=== PATIENT | male | born 1945 | race Caucasian/White ===

== ENCOUNTER 2016-08-09 09:22 | Day surgery (SDC) | payer MEDICARE ==
[2016-08-09] MEDS ORDERED: Xopenex 1.25 MG/0.5 ML UD NEBULE IH ONE ×2 (09:55→10:07)
[2016-08-09] MEDS ORDERED: Sodium Chloride 3 ML UD NEBULES IH PRN (09:57)
[2016-08-09] MEDS ORDERED: Lactated Ringers 1,000 ML IV SCH (10:00)
[2016-08-09] MEDS ORDERED: Sodium Chloride 3 ML UD NEBULES IH ONE (10:07)
[2016-08-09 14:14] VITALS: BP 132/82; PULSE 88; O2SAT 95
[2016-08-09] MEDS ORDERED: SUBLIMAZE 100 MCG/2 ML IV ONE ×2 (14:32→14:37)
[2016-08-09] MEDS ORDERED: DIPRIVAN 200 MG/20 ML IV ONE ×2 (14:32→14:37)
[2016-08-09] MEDS ORDERED: Versed 2 MG/2 ML Injection IV ONE ×2 (14:32→14:37)
--- NOTE | 2016-08-10 12:42 | OP ---
PROCEDURE DATE/TIME: 08/09/2016 1222 PREOPERATIVE DIAGNOSIS: Screening colonoscopy. The patient has history of polyps. POSTOPERATIVE DIAGNOSIS: Mild diverticulosis. Mild internal hemorrhoidal disease. One colonic polyp at the level of the splenic flexure that appears benign. The final pathology report is pending. PROCEDURE: Colonoscopy. PROCEDURE PERFORMED BY: Eileen Jaime M.D. COMPLICATIONS: None. ESTIMATED BLOOD LOSS: Minimal. ANESTHESIA: MAC. SPECIMEN: Splenic flexure polyp. HISTORY: This is a 60 year-old gentleman who presents for screening colonoscopy. He does have a history of polyps in the past. All risks, benefits, alternatives of colonoscopy were discussed with the patient in detail and he agreed to proceed. DESCRIPTION OF PROCEDURE: The patient was seen preoperatively and he was then brought back to the endoscopy suite. He was laid in the left lateral decubitus position. MAC anesthesia was administered. A complete time out was performed. First a rectal exam was done which noted some hemorrhoidal tissue. We then carefully entered the scope and advanced this towards the cecum. The patient does have mildly prominent internal hemorrhoids. He also has mild diverticulosis throughout the sigmoid and descending colon. The transverse colon appeared normal. The ascending colon appeared normal and the ileocecal valve as well as the appendiceal orifice were visualized and these appeared normal. The scope was then carefully withdrawn. There was some liquid stool that we had to suction and irrigate. The mucosa looked very healthy. As the scope was withdrawn at the level of the splenic flexure there was a very small benign appearing polyp which was taken in its entirety with hot forceps polypectomy. The site looked good. It was hemostatic. The polyp was removed in its entirety. It was sent to pathology. We then carefully continued to withdrawal the scope finding no other significant abnormalities except those already noted. The patient tolerated the procedure very well. There were no immediate complications. I discussed the results with the family in the postoperative area and we will plan to do another colonoscopy in approximately three years because of his history of polyps. He will also see me in the office to discuss the results.
== END 2016-08-09 14:05 | disposition home or self-care (01) ==
LOC: SDC 09:22
PROVIDERS: ATTEND Surgery
PROC: 0DBL8ZX Excision of Transverse Colon, Via Natural or Artificial Opening Endoscopic, Diagnostic (ICD-10-PCS; principal; 2016-08-09)
DX: K57.90 Diverticulosis of intestine, part unspecified, without perforation or abscess without bleeding (principal); K63.5 Polyp of colon; Z86.010 Personal history of colon polyps; K64.8 Other hemorrhoids; Z12.11 Encounter for screening for malignant neoplasm of colon
CPT/HCPCS: 00810; 36415; 82962; 88305; 93005; 94640; J2250; J2704; J3010

== ENCOUNTER 2016-09-06 10:47 | Day surgery (SDC) | payer MEDICARE ==
[~2016-09-06 10:47] MED LIST: DIPRIVAN 200 MG/20 ML IV ONE; Lactated Ringers 1,000 ML IV ONE; SUBLIMAZE 100 MCG/2 ML IV ONE; Sensorcaine 0.25% 10 ML ONE; Versed 2 MG/2 ML Injection IV ONE
[2016-09-06] MEDS ORDERED: Lactated Ringers 1,000 ML IV ONE (10:55)
[2016-09-06] MEDS ORDERED: Lactated Ringers 1,000 ML IV SCH (11:00)
[2016-09-06] MEDS ORDERED: Xopenex 1.25 MG/0.5 ML UD NEBULE IH ONE (11:31)
[2016-09-06] MEDS ORDERED: Sodium Chloride 3 ML UD NEBULES IH ONE (11:33)
[2016-09-06] MEDS ORDERED: Sodium Chloride 3 ML UD NEBULES IH PRN (11:39)
[2016-09-06] MEDS ORDERED: XYLOCAINE 1% HCL 20 ML MDV ONE (12:52)
[2016-09-06] MEDS ORDERED: KEFZOL 1 GM ONE (13:00)
[2016-09-06 15:10] VITALS: O2SAT 97
[2016-09-06 15:11] VITALS: BP 132/78; PULSE 82
--- NOTE | 2016-09-11 08:41 | OP ---
PROCEDURE DATE/TIME: 09/06/2016 1249 PREOPERATIVE DIAGNOSIS: Multiple back masses. POSTOPERATIVE DIAGNOSIS: Multiple back masses. PROCEDURES: 1) Excision of lower back mass 4 x 2 cm. 2) Incisional biopsy upper back mass 1 x 1 cm. PROCEDURE PERFORMED BY: Eileen Jaime M.D. COMPLICATIONS: None. ESTIMATED BLOOD LOSS: Less than 10 cc. ANESTHESIA: MAC. SPECIMEN: Lower back mass and biopsy of upper back mass. HISTORY: This is a 70 year-old gentleman who noticed a lower back mass that has been changing. Its borders are irregular. All risks, benefits, alternatives of excision were discussed with the patient in the office and then he was set up for the procedure. DESCRIPTION OF PROCEDURE: We then saw the patient again preoperatively. I marked the lower back mass with the patient awake and alert. We confirmed this. The patient has been noticing an upper lesion that has changed as well. This site is actually quite a broad site. It is slightly red. It does not appear obviously malignant but it does appear abnormal and it may have changed recently. The patient is not sure but this does look like it needs biopsied to me. To completely excise the upper lesion we would have to make quite a large wound to get any margins here and so before doing this I discussed with the patient that since I am already going to be removing the lower back mass in entirety, we will plan to take at least a biopsy of the upper back mass and see what it is. Depending on what it is then we will determine our plans for resection. The patient understands. We marked the upper back mass together as well and then he was able to be brought back to the operative suite. The patient was laid in in a right lateral decubitus position after anesthesia was induced. He was then prepped and draped in the usual sterile fashion. A complete time out was performed. We verified our two sites. The lower back mass was completely encircled with a small margin of at least 0.5 cm around the entire lesion. The incision taken down through skin, subcutaneous tissue this was removed and sent to pathology. We did irrigate the wound thoroughly after resection. Hemostasis was achieved with Bovie cautery. We did also raise inferior and superior flap in order to close the wound and then the wound was closed with 2-0 Nylon vertical mattress sutures in an interrupted fashion. We then turned our attention to the upper lesion. This site we picked the most abnormal area to biopsy and a 1 x 1 cm biopsy was taken directly of the lesion with the knife and then hemostasis achieved with Bovie cautery. The wound here was thoroughly irrigated and then closed with interrupted 3-0 Nylon suture. Sterile dressings were placed at both wounds. The patient tolerated the procedures very well. There were no immediate complications. I discussed all the results as well as the instructions with the patient's family postoperatively as well as what we found. The patient will follow up with me in approximately two weeks for pathology results as well as suture removal.
== END 2016-09-06 15:20 | disposition home or self-care (01) ==
LOC: SDC 10:47
PROVIDERS: ATTEND Surgery
PROC: 0HB6XZX Excision of Back Skin, External Approach, Diagnostic (ICD-10-PCS; principal; 2016-09-06)
PROC: 0HB6XZX Excision of Back Skin, External Approach, Diagnostic (ICD-10-PCS; 2016-09-06)
DX: R22.2 Localized swelling, mass and lump, trunk (principal); E11.9 Type 2 diabetes mellitus without complications; Z79.4 Long term (current) use of insulin; J44.9 Chronic obstructive pulmonary disease, unspecified; I10 Essential (primary) hypertension; Z79.899 Other long term (current) drug therapy
CPT/HCPCS: 00300; 36415; 82962; 94640; J0690; J2250; J2704; J3010

== ENCOUNTER 2016-11-01 10:52 | Day surgery (SDC) | payer MEDICARE ==
[~2016-11-01 10:52] MED LIST changes: +BICITRA 30 ML CUP ONE; +BICITRA 30 ML CUP PO ONE; +Decadron 4 MG INJ IV ONE; +Lactated Ringers 1,000 ML IV SCH; +MINERAL OIL LIGHT 10 ML FOR SURGERY ONE; +Pepcid 20 MG VIAL IV ONE; +Quelicin Fliptop 200 MG/10 ML IV ONE; +TORAdol 30 mg Injection IV ONE; -Versed 2 MG/2 ML Injection IV ONE; +Zemuron 100 MG/10 ML IV ONE; +Zofran 4 MG/2 ML VIAL IV ONE
[2016-11-01] MEDS ORDERED: Xopenex 1.25 MG/0.5 ML UD NEBULE IH ONE ×2 (11:45→15:20)
[2016-11-01] MEDS: Sodium Chloride 3 ML UD NEBULES IH SCH ×2 (11:55→15:20)
[2016-11-01] MEDS ORDERED: KEFZOL 1 GM ONE (14:05)
[2016-11-01] MEDS ORDERED: BACIGUENT 30 GM ONE (14:31)
[2016-11-01 17:25] VITALS: O2SAT 91
[2016-11-01 17:26] VITALS: BP 145/80; PULSE 82
--- NOTE | 2016-11-02 07:50 | OP ---
PROCEDURE DATE/TIME: 11/02/2016 1342 PREOPERATIVE DIAGNOSIS: Basal cell carcinoma back. POSTOPERATIVE DIAGNOSIS: Basal cell carcinoma back. PROCEDURE: Wide excision basal cell carcinoma of the back. Approximate lesion size is 5.5 x 5 cm with split thickness skin graft harvesting of left back approximately 7.5 x 5.5 cm and application of skin graft to excision site. PROCEDURE PERFORMED BY: Eileen Jaime M.D. COMPLICATIONS: None. ESTIMATED BLOOD LOSS: Less than 10 cc. ANESTHESIA: General. SPECIMEN: Wide excision basal cell carcinoma of the back suture marked 12:00. HISTORY: This is a 71 year-old gentleman who had seen me due to skin lesion on his back. We initially removed a lower back lesion which was found to be basal cell carcinoma with good margins. At that time I also biopsied a larger back lesion which was concerning for skin cancer and this came back as basal cell carcinoma. The patient has been consented for wide excision of the basal cell carcinoma lesion on his back with possible skin grafting. All risks, benefits, alternatives and procedure details were discussed in detail with the patient. He agreed to proceed. DESCRIPTION OF PROCEDURE: The patient was seen in the preoperative area. The site of biopsy was identified. The lesion was again confirmed with the patient and his family. We circled this. He was then brought back to the surgical suite. Anesthesia was induced. He was then placed in the prone position with all bony prominences padded. He was prepped and draped in the usual sterile fashion. A complete time out was performed and we verified the correct lesion. I then measured the lesion. The lesion has very irregular borders. It is a very irregular lesion. So from each of the borders that I outlined, I took about a 1 cm margin so we were for sure get a good margin around it as the borders are so irregular. I then took a knife and sharply excised this lesion taking full thickness skin and I did this on a slant so that the skin graft would lie in nicely. We then used the Bovie cautery for hemostasis and to fully remove the lesion from the subcutaneous tissue deeper. The mass was immediately marked once it was removed. It was marked with a stitch at the 12:00 position so that margins can be checked. All margins grossly appeared very clear. This specimen was then sent to pathology. We then irrigated the wound thoroughly and then I measured it. This is approximately 5.5 x 5 cm and then I selected a left lower back site to take the skin graft from. This site was free from any obvious skin lesion. I marked out my graft site of approximately 7.5 x 5.5 cm in order to cover the entire lesion. We then used the skin grafter with the medium blade. I took a thin split thickness skin graft here. We used our oil and we were able to get an excellent specimen. We immediately covered the skin graft harvest site with gently moistened gauze and then our skin graft nicely fit over the lesion. I did trim a small amount off at the edges to shape this into a circular lesion to fit perfectly. I then used 3-0 chromic suture to sew the skin graft in place. Everything looked very hemostatic and this laid very nicely. We put multiple interrupted sutures to place the skin graft in around the entire circumference of the lesion. I then placed a few cloaking sutures with the same stitch at the base and then I made a few very tiny nicks in the skin graft to allow this to breathe or drain, if necessary, but it was laying very flat and I was very happy with it. We then placed bacitracin ointment at the lesion bed and we placed a nonadherent dressing and taped this into place. We also placed some bacitracin and Adaptic at the harvest site and then placed a dry dressing over top of this and taped this into place. The patient tolerated the procedure very well. There were no immediate complications. He is going to follow up with me in approximately 4 1/2 days on Sunday. I have discussed with his family all of his instructions and I have given a prescription for pain pills.
== END 2016-11-01 17:33 | disposition home or self-care (01) ==
LOC: SDC 10:52
PROVIDERS: ATTEND Surgery
PROC: 0HR6X73 Replacement of Back Skin with Autologous Tissue Substitute, Full Thickness, External Approach (ICD-10-PCS; principal; 2016-11-01)
PROC: 0HB6XZZ Excision of Back Skin, External Approach (ICD-10-PCS; 2016-11-01)
DX: C44.519 Basal cell carcinoma of skin of other part of trunk (principal); Z85.828 Personal history of other malignant neoplasm of skin; J44.9 Chronic obstructive pulmonary disease, unspecified; I10 Essential (primary) hypertension; E11.9 Type 2 diabetes mellitus without complications; Z79.4 Long term (current) use of insulin; Z79.899 Other long term (current) drug therapy
CPT/HCPCS: 00300; 36415; 88305; 94640; 99100; J0330; J0690; J1100; J1885; J2405; J2704; J3010; A9270-GY

== ENCOUNTER 2018-07-29 10:46 | Inpatient (IN) | payer MEDICARE ==
--- NOTE | 2018-07-29 11:17 | ERPHSYRPT ---
- History of Present Illness Time Seen by Provider: 07/29/18 11:12 Source: patient, family () Exam Limitations: no limitations Patient Subjective Stated Complaint: pt here for increase sob,chills, low grade fever, cough, left rib pain and tightness in chest for over a week now. had round of antibotics and steriods 2 weeks ago Triage Nursing Assessment: pt alert, walked in, resp labored, wears home o2, chest diminished to lower lobes, has congested soundking cough, no edema Physician History: The patient is a 72-year-old male with his complaining of increasing shortness of breath and cough that began 4 weeks ago. About 2 weeks ago his frame tender prescribed him an antibiotic for 7 days and steroids for 6 days. He briefly felt better. The shortness of breath and chest tightness returned. Last night it worsened. He was told to come to the ER by his frame tender because his O2 sat was low. He uses supplemental oxygen all the time at home. He uses 2 L while at rest and 4 L while up and around. He denies any chest pain. He denies nausea or vomiting. This morning he had a fever of 100.4. His gave him 2 Tylenols. His past medical history is significant for COPD, DM, HTN, GERD, and anxiety. Timing/Duration: week(s) (4), gradual onset, worse Activities at Onset: none Severity of Dyspnea-Max: severe Severity of Dyspnea-Current: severe Possible Cause: frequent episodes Modifying Factors: Improves With: albuterol inhaler, exertion Associated Symptoms: anxiety, cough, chest pain/discomfort, fever, wheezing, No ankle swelling, No leg swelling Allergies/Adverse Reactions: nicotine [From Nicoderm CQ] Allergy (Severe, Verified 07/29/18 11:04) Rash Home Medications: Albuterol 2.5 mg/3 ml Neb [Proventil 2.5 mg/3 ml Neb] 2.5 mg IH TID [History] Aspirin 81 mg PO DAILY 02/04/14 [History] Budesonide/Formoterol Fumarate [Symbicort 160-4.5 Mcg Inhaler] 6 gm IH BID 02/04 [History] Hydrochlorothiazide 25 mg [hydroDIURIL 25 MG] 25 mg PO DAILY 02/04/14 [ History] Metformin HCl 500 mg [Glucophage 500 MG] 500 mg PO BID 02/04/14 [History] Omeprazole 20 MG [Prilosec 20 mg] 40 mg PO DAILY 02/04/14 [History] Tiotropium [place] Inhaler [Spiriva 18 Mcg/Cap Inhaler] 1 ea IH DAILY 04/12 [History] Albuterol 8 gm Mdi Hfa [Ventolin Hfa MDI] 90 mcg IH Q4H PRN PRN 08/01/16 [ History] Alprazolam 0.5 mg PO BID 08/01/16 [History] Bumetanide 1 mg [Bumex 1 mg] 1 mg PO DAILY 08/01/16 [History] Nitroglycerin 0.4 mg Tablet [Nitrostat 0.4 MG Tablet] 0.4 mg SL Q5MIN PRN MR X 3 PRN 08/01/16 [History] Hx Tetanus, Diphtheria Vaccination/Date Given: No Hx Influenza Vaccination/Date Given: Yes Hx Pneumococcal Vaccination/Date Given: Yes Immunizations Up to Date: Yes - Review of Systems Constitutional: Fever Eyes: No Symptoms Ears, Nose, & Throat: No Symptoms Respiratory: Cough, Dyspnea, Dyspnea on Exertion (GUERRA), Wheezing Cardiac: No Chest Pain, No Edema, No Syncope Abdominal/Gastrointestinal: No Abdominal Pain, No Nausea, No Vomiting, No Diarrhea Genitourinary Symptoms: No Dysuria Musculoskeletal: No Back Pain, No Neck Pain Skin: No Rash Neurological: No Dizziness, No Focal Weakness, No Sensory Changes Psychological: No Symptoms Endocrine: No Symptoms Hematologic/Lymphatic: No Symptoms Immunological/Allergic: No Symptoms All Other Systems: Reviewed and Negative - Past Medical History Pertinent Past Medical History: Yes Neurological History: No Pertinent History ENT History: No Pertinent History Cardiac History: Aneurysm, Hypertension Respiratory History: COPD, Sleep Apnea Endocrine Medical History: Diabetes Type II Musculoskeletal History: No Pertinent History GI Medical History: No Pertinent History, GERD History: No Pertinent History Psycho-Social History: No Pertinent History Male Reproductive Disorders: No Pertinent History Other Medical History: 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 Pt also states he had an increase of SOB and chest pain that he has seen Dr. Mallory for and he has been put on nitro. PT wears 2 L of oxygen at night and when he is resting during the day. - Past Surgical History Past Surgical History: Yes Neuro Surgical History: No Pertinent History Cardiac: No Pertinent History Respiratory: Other Gastrointestinal: Hernia Repair Genitourinary: No Pertinent History Musculoskeletal: Orthopedic Surgery Male Surgical History: Vasectomy Other Surgical History: BACK SURGERY, and ear surgery and a left lung biopsy. - Social History Smoking Status: Former smoker How long have you smoked: 40 + Exposure to second hand smoke: No Drug Use: none Patient Lives Alone: No - Nursing Vital Signs Nursing Vital Signs: Initial Vital Signs Temperature 99.3 F 07/29/18 10:51 Pulse Rate 88 07/29/18 10:51 Respiratory Rate 36 H 07/29/18 10:51 O2 Sat by Pulse Oximetry 90 L 07/29/18 10:51 Pain Scale Pain Intensity 4 - Physical Exam General Appearance: moderate distress Eye Exam: PERRL/EOMI Ears, Nose, Throat Exam: hearing grossly normal Neck Exam: normal inspection, supple Respiratory Exam: diminished breath sounds Cardiovascular/Chest Exam: normal heart sounds, regular rate/rhythm Abdominal/Gastrointestinal Exam: soft, No tenderness, No distention, No mass Rectal Exam: not done Extremity Exam: non-tender, normal range of motion, normal inspection, no calf tenderness, no pedal edema Neurologic Exam: alert, oriented x 3, cooperative, 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 tested, sensation nml, No motor deficits Skin Exam: normal color, warm, No dry SpO2 Interpretation: borderline oxygenation, O2 applied SpO2: 95 Oxygen Delivery: Nasal Cannula (4L) - Course EKG Interpreted by Me: RATE, Sinus Rhythm, NORMAL INTERVALS, Right Bundle Branch Block, NORMAL ST-T, Other (no change in comp EKG from 04/04/17.) - Radiology Exams Chest X-ray Interpretation: Reviewed by me, Teleradiologist Report (per Dr Suárez), Negative - CT Exams Chest CT Interpretation: Tele-radiologist Report (per Dr Suárez), No PE, Other (new bibasilar infiltrated) Ordered Tests: Active Orders 24 hr Category Date Time Status Reeling Operator STAT Care 07/29/18 11:21 Active EKG-ER Only STAT Care 07/29/18 11:19 Active IV Insertion STAT Care 07/29/18 11:19 Active Oxygen-ED Only NASAL CANNULA 4 lpm Care 07/29/18 11:19 Active Pulse Oximetry (ED) STAT Care 07/29/18 11:19 Active CHEST 2 VIEWS (PA AND LAT) Stat Exams 07/29/18 11:21 Completed CHEST WITH CONTRAST [CT] Stat Exams 07/29/18 12:25 Completed ARTERIAL BLOOD GASES Stat Lab 07/29/18 12:00 Completed BLOOD CULTURE Stat Lab 07/29/18 12:05 Received CBC W DIFF Stat Lab 07/29/18 11:15 Completed CMP Stat Lab 07/29/18 11:15 Completed CULTURE,SPUTUM Stat Lab 07/29/18 11:21 Uncollected D-DIMER QUANTITATION Stat Lab 07/29/18 11:15 Completed Lactic Acid Stat Lab 07/29/18 12:00 Completed NT PRO BNP Stat Lab 07/29/18 11:15 Completed PROTIME WITH INR Stat Lab 07/29/18 11:15 Completed TROPONIN Q3H Lab 07/29/18 11:15 Completed TROPONIN Q3H Lab 07/29/18 14:30 Ordered TROPONIN Q3H Lab 07/29/18 17:30 Ordered TROPONIN Q3H Lab 07/29/18 20:30 Ordered TROPONIN Q3H Lab 07/29/18 23:30 Ordered Peak Expiratory Flow Rate DAILY RT 07/29/18 12:04 Active Respiratory Nebulizer STAT RT 07/29/18 11:23 Completed Respiratory Therapy Assessment DAILY RT 07/30/18 12:04 Active Medication Summary Generic Name Dose Route Start Last Admin Trade Name Freq PRN Reason Stop Dose Admin Ceftriaxone Sodium/Dextrose 1 g in 50 mls @ 100 mls/hr 07/29/18 14:28 Rocephin 1 Gm-D5w 50 Ml Bag IV 07/29/18 14:57 STAT STA Discontinued Medications Generic Name Dose Route Start Last Admin Trade Name Freq PRN Reason Stop Dose Admin Albuterol/Ipratropium 3 ml 07/29/18 11:19 07/29/18 11:52 Duoneb 0.5-3 Mg/3 Ml Neb IH 07/29/18 11:20 3 ml STAT ONE Administration Albuterol/Ipratropium Confirm 07/29/18 11:47 Duoneb 0.5-3 Mg/3 Ml Neb Administered 07/29/18 11:48 Dose 3 ml IH .STK-MED ONE Lorazepam 1 mg 07/29/18 11:19 07/29/18 11:29 Ativan 2 Mg/1 Ml Vial IV 07/29/18 11:20 1 mg STAT ONE Administration Lorazepam Confirm 07/29/18 11:28 Ativan 2 Mg/1 Ml Vial Administered 07/29/18 11:29 Dose 2 mg .ROUTE .STK-MED ONE Methylprednisolone Sodium Succinate 125 mg 07/29/18 11:19 07/29/18 11:29 Solu-Medrol 125 Mg IV 07/29/18 11:20 125 mg STAT ONE Administration Methylprednisolone Sodium Succinate Confirm 07/29/18 11:28 Solu-Medrol 125 Mg Administered 07/29/18 11:29 Dose 125 mg .ROUTE .STK-MED ONE Lab/Rad Data: Laboratory Result Diagrams 07/29/18 11:15 07/29/18 11:15 Laboratory Results 07/29/18 07/29/18 07/29/18 Range/Units 12:15 12:00 11:15 WBC (4.0-10.5) K/mm3 RBC (4.1-5.6) M/mm3 Hgb (12.5-18.0) gm/dl Hct (42-50) % MCV (78-100) fl MCH (26-32) pg MCHC (32-36) g/dl RDW (11.5-14.0) % Plt Count (150-450) K/mm3 MPV (6-9.5) fl Gran % (36.0-66.0) % Eos # (Auto) (0-0.5) Absolute Lymphs (auto) (1.0-4.6) Absolute Monos (auto) (0.0-1.3) Lymphocytes % (24.0-44.0) % Monocytes % (0.0-12.0) % Eosinophils % (0.00-5.0) % Basophils % (0.0-0.4) % Absolute Granulocytes (1.4-6.9) Basophils # (0-0.4) PT (8.83-12.87) SECONDS INR (0.8-3.0) D-Dimer (215-500) ng/mL Puncture Site RIGHT RADIAL pCO2 41 (35-45) mmHg pO2 88 (75-100) mmHg Base Excess 4.1 H (-2.0-2.0) O2 Saturation 94.7 (94-100) g/dF ABG pH 7.45 (7.35-7.45) ABG HCO3 28.5 H (22-28) ABG O2 Sat (Measured) 96.7 (95-100) % Gokul Test YES A-a Gradient 146 a/A Ratio 0.38 Hemoglobin 14.1 Carboxyhemoglobin 1.3 (0.0-6.9) % THgb Methemoglobin 0.8 L (1.4-1.5) % Temperature 37.0 C POC O2 Flow Rate 40 % Sodium (137-145) mmol/L Potassium 3.6 (3.5-5.1) mmol/L Chloride (98-107) mmol/L Carbon Dioxide (22-30) mmol/L Anion Gap (5-15) MEQ/L BUN (9-20) mg/dL Creatinine (0.66-1.25) mg/dL Estimated GFR ML/MIN Glucose (74-106) mg/dL Lactic Acid 0.7 (0.4-2.0) Calcium (8.4-10.2) mg/dL Total Bilirubin (0.2-1.3) mg/dL AST (17-59) U/L ALT (0-50) U/L Alkaline Phosphatase (38-126) U/L Troponin I < 0.012 (0.000-0.034) ng/mL NT-Pro-B Natriuret Pep (0-900) pg/mL Serum Total Protein (6.3-8.2) g/dL Albumin (3.5-5.0) g/dL Influenza Type A Ag NEGATIVE (NEGATIVE) Influenza Type B Ag NEGATIVE (NEGATIVE) RSV (PCR) NEGATIVE (Negative) Slides for Path Review 07/29/18 07/29/18 07/29/18 Range/Units 11:15 11:15 11:15 WBC 20.2 H (4.0-10.5) K/mm3 RBC 5.20 (4.1-5.6) M/mm3 Hgb 14.2 (12.5-18.0) gm/dl Hct 42.7 (42-50) % MCV 82.1 (78-100) fl MCH 27.3 (26-32) pg MCHC 33.3 (32-36) g/dl RDW 15.5 H (11.5-14.0) % Plt Count 291 (150-450) K/mm3 MPV 9.5 (6-9.5) fl Gran % 87.2 H (36.0-66.0) % Eos # (Auto) 0.01 (0-0.5) Absolute Lymphs (auto) 1.02 (1.0-4.6) Absolute Monos (auto) 1.56 H (0.0-1.3) Lymphocytes % 5.0 L (24.0-44.0) % Monocytes % 7.7 (0.0-12.0) % Eosinophils % 0.0 (0.00-5.0) % Basophils % 0.1 (0.0-0.4) % Absolute Granulocytes 17.61 H (1.4-6.9) Basophils # 0.02 (0-0.4) PT 14.8 H (8.83-12.87) SECONDS INR 1.27 (0.8-3.0) D-Dimer 577 H* (215-500) ng/mL Puncture Site pCO2 (35-45) mmHg pO2 (75-100) mmHg Base Excess (-2.0-2.0) O2 Saturation (94-100) g/dF ABG pH (7.35-7.45) ABG HCO3 (22-28) ABG O2 Sat (Measured) (95-100) % Gokul Test A-a Gradient a/A Ratio Hemoglobin Carboxyhemoglobin (0.0-6.9) % THgb Methemoglobin (1.4-1.5) % Temperature C POC O2 Flow Rate % Sodium 135 L (137-145) mmol/L Potassium 3.7 (3.5-5.1) mmol/L Chloride 95 L (98-107) mmol/L Carbon Dioxide 28 (22-30) mmol/L Anion Gap 16.7 H (5-15) MEQ/L BUN 13 (9-20) mg/dL Creatinine 0.73 (0.66-1.25) mg/dL Estimated GFR > 60.0 ML/MIN Glucose 128 H (74-106) mg/dL Lactic Acid (0.4-2.0) Calcium 9.0 (8.4-10.2) mg/dL Total Bilirubin 2.10 H (0.2-1.3) mg/dL AST 25 (17-59) U/L ALT 47 (0-50) U/L Alkaline Phosphatase 50 (38-126) U/L Troponin I (0.000-0.034) ng/mL NT-Pro-B Natriuret Pep 403 (0-900) pg/mL Serum Total Protein 7.1 (6.3-8.2) g/dL Albumin 4.2 (3.5-5.0) g/dL Influenza Type A Ag (NEGATIVE) Influenza Type B Ag (NEGATIVE) RSV (PCR) (Negative) Slides for Path Review YES - Progress Progress: improved Air Movement: good Blood Culture(s) Obtained: Yes Antibiotics given: Yes Discussed with : Lisbet Will see patient in: hospital (full admit) Counseled pt/family regarding: lab results, diagnosis, rad results - Departure Time of Disposition: 14:28 Departure Disposition: Home Clinical Impression: Pneumonia, Acute exacerbation of chronic obstructive airways disease Condition: Stable Critical Care Time: No Referrals: KRUPA MAZA MD [Primary Care Provider] -
[2018-07-29] MEDS ORDERED: Ativan 2 MG/1 ML VIAL IV ONE (11:19)
[2018-07-29] MEDS ORDERED: solu-MEDROL 125 MG IV ONE (11:19)
[2018-07-29] MEDS ORDERED: DUONEB 0.5-3 MG/3 ml Neb IH ONE ×2 (11:19→11:47)
[2018-07-29] MEDS ORDERED: solu-MEDROL 125 MG ONE (11:28)
[2018-07-29] MEDS ORDERED: Ativan 2 MG/1 ML VIAL ONE (11:28)
[2018-07-29 11:39] LABS: BASOPHIL % 0.1 % (0.0-0.4); Basophil (Absolute #) 0.02 (0-0.4); Eosinophil (Absolute #) 0.01 (0-0.5); Granulocyte Absolute (ANC) 17.61 (1.4-6.9); Granulocytes % 87.2 % (36.0-66.0); Hematocrit 42.7 % (42-50); Hemoglobin 14.2 gm/dl (12.5-18.0); Lymphocyte (Absolute #) 1.02 (1.0-4.6); Mean Cell Volume 82.1 fl (78-100); Mean Corpuscular Hemoglobin 27.3 pg (26-32); Mean Corpuscular Hgb Concent. 33.3 g/dl (32-36); Mean Platelet Volume 9.5 fl (6-9.5); Monocyte (Absolute #) 1.56 (0.0-1.3); Monocytes % 7.7 % (0.0-12.0); Platelet Count 291 K/mm3 (150-450); Red Cell Distribution Width 15.5 % (11.5-14.0); White Blood Count 20.2 K/mm3 (4.0-10.5)
[2018-07-29 11:46] LABS: INR 1.27 (0.8-3.0)
[2018-07-29 11:52] LABS: Slide Review 1 YES
[2018-07-29 11:59] LABS: ALBUMIN 4.2 g/dL (3.5-5.0); ALKALINE PHOSPHATASE 50 U/L (38-126); ANION GAP 16.7 MEQ/L (5-15); BLOOD UREA NITROGEN 13 mg/dL (9-20); CHLORIDE 95 mmol/L (98-107); Carbon Dioxide 28 mmol/L (22-30); Creatinine 1 0.73 mg/dL (0.66-1.25); Glucose 128 mg/dL (74-106); NT PRO BNP 403 pg/mL (0-900); Potassium 3.7 mmol/L (3.5-5.1); SGOT/AST 25 U/L (17-59); SGPT/ALT 47 U/L (0-50); SODIUM 135 mmol/L (137-145); Total Protein 7.1 g/dL (6.3-8.2)
[2018-07-29 12:07] LABS: A-aADO2 146; ABG HEMOGLOBIN 14.1; ABG POTASSIUM 3.6 (3.5-5.1); ARTERIAL BLD GAS O2 SATURATION 96.7 % (95-100); ARTERIAL BLOOD GAS BASE EXCESS 4.1 (-2.0-2.0); ARTERIAL BLOOD GAS FIO2 40 %; ARTERIAL BLOOD GAS PCO2 41 mmHg (35-45); ARTERIAL BLOOD GAS PO2 88 mmHg (75-100); ARTERIAL BLOOD GAS pH 7.45 (7.35-7.45); CARBOXYHEMOGLOBIN 1.3 % THgb (0.0-6.9); HCO3- 28.5 (22-28); HGB O2 SAT 94.7 g/dF (94-100); Lactic Acid 0.7 (0.4-2.0); Methhemoglobin 0.8 % (1.4-1.5); paO2 pAO1 0.38
[2018-07-29 12:08] LABS: ABG SITE RIGHT RADIAL; ALLEN TEST OK? YES
--- NOTE | 2018-07-29 12:34 | XRAY ---
Indication: Short of breath and productive cough 1 month. Comparison: May 25, 2017. PA/lateral chest again demonstrates COPD without focal infiltrate, consolidation, or large effusion. Stable left mid lung suture material. Heart and mediastinal structures within normal limits. Bony thorax intact again with mild osteopenia and degenerative changes. Impression: Stable nonacute chest with chronic features.
[2018-07-29 12:50] LABS: INFLUENZA A NEGATIVE (NEGATIVE); INFLUENZA B NEGATIVE (NEGATIVE); RESPIRATORY SYNCTIAL VIRUS NEGATIVE (Negative)
--- NOTE | 2018-07-29 13:26 | XRAY ---
Indication: Short of breath one month. Productive cough. Elevated d-dimer. Multiple contiguous axial images obtained through the chest using 100 cc Isovue 370 contrast and PE protocol. Comparison: February 04, 2014. There is good opacification of the pulmonary arteries to include the lobar and segmental branches. No filling defect or pulmonary embolus. Heart is not enlarged. Stable prominent mediastinal and right hilar lymph nodes, again largest subcarinal measuring 1.6 x 2.8 cm. Examination of the lung parenchyma again demonstrates diffuse pulmonary emphysema with scattered fibrosis/scarring. New left midlung suture material. Also new patchy bibasilar posterior infiltrates versus atelectasis without effusion. Bony thorax intact. Limited upper abdomen again demonstrates fatty liver. Impression: 1. Again negative pulmonary embolus. 2. New bibasilar posterior infiltrates/atelectasis. Correlate clinically. 3. Interval partial left lung resection. 4. Stable pulmonary emphysema, fibrosis/scarring, nonspecific prominent mediastinal/right hilar lymph nodes, and fatty liver. CT DI 19.48
[2018-07-29] MEDS ORDERED: ROCEPHIN 1 Gm-D5w 50 ml Bag** 1 G/50 ML IVPB IV STA (14:28)
[2018-07-29] MEDS ORDERED: ROCEPHIN 1 Gm-D5w 50 ml Bag** 1 G/50 ML IVPB IV ONE (15:04)
[2018-07-29] MEDS ORDERED: DUONEB 0.5-3 MG/3 ml Neb IH SCH (15:28)
[2018-07-29] MEDS ORDERED: HOLD METFORMIN PRODUCTS FOR 48 HOURS MC SCH (15:45)
[2018-07-29] MEDS: Zithromax 500 MG/ 250 ML NaCl Premix 500 MG/250 ML IVPB IV SCH (16:15)
[2018-07-29] MEDS: PROVENTIL 2.5 MG/3 ML NEB IH SCH ×3 (17:08→23:23)
[2018-07-29] MEDS ORDERED: NovoLOG Insulin SQ PRN (17:25)
[2018-07-29] MEDS ORDERED: DESYREL 50 MG PO ONE ×2 (17:25→22:00)
--- NOTE | 2018-07-29 17:27 | PCM.HP ---
History of Present Illness - Chief Complaint Chief Complaint: pneumonia, COPD History of Present Illness: is a 72 year old male admitted with c/o shortness of breath , chest congestion and cough for 1 week - Review of Systems Constitutional: No Fever, No Chills Eyes: No Symptoms Ears, Nose, & Throat: No Symptoms Respiratory: No Cough, No Short Of Breath Cardiac: No Chest Pain, No Edema, No Syncope Abdominal/Gastrointestinal: No Abdominal Pain, No Nausea, No Vomiting, No Diarrhea Genitourinary Symptoms: No Dysuria Musculoskeletal: No Back Pain, No Neck Pain Skin: No Rash Neurological: No Dizziness, No Focal Weakness, No Sensory Changes Psychological: No Symptoms Endocrine: No Symptoms Hematologic/Lymphatic: No Symptoms Immunological/Allergic: No Symptoms Medications & Allergies Home Medications: Home Medication List Albuterol 2.5 mg/3 ml Neb [Proventil 2.5 mg/3 ml Neb] 2.5 mg IH QID [History Confirmed 07/29/18] Aspirin 81 mg PO DAILY 02/04/14 [History Confirmed 07/29/18] Budesonide/Formoterol Fumarate [Symbicort 160-4.5 Mcg Inhaler] 2 puff IH BID 04/12 [History Confirmed 07/29/18] Hydrochlorothiazide 25 mg [hydroDIURIL 25 MG] 25 mg PO DAILY 02/04/14 [ History Confirmed 07/29/18] Metformin HCl 500 mg [Glucophage 500 MG] 500 mg PO BIDAC 02/04/14 [ History Confirmed 07/29/18] Omeprazole 20 MG [Prilosec 20 mg] 40 mg PO BID 02/04/14 [History Confirmed 07/29] Tiotropium [place] Inhaler [Spiriva 18 Mcg/Cap Inhaler] 1 ea IH DAILY 04/12 [History Confirmed 07/29/18] Albuterol 8 gm Mdi Hfa [Ventolin Hfa MDI] 2 puff IH Q6HPRN PRN 08/01/16 [ History Confirmed 07/29/18] Alprazolam 0.5 mg PO TID 08/01/16 [History Confirmed 07/29/18] Bumetanide 1 mg [Bumex 1 mg] 1 mg PO DAILY PRN PRN 08/01/16 [History Confirmed 07/29/18] Nitroglycerin 0.4 mg Tablet [Nitrostat 0.4 MG Tablet] 0.4 mg SL Q5MIN PRN MR X 3 PRN 08/01/16 [History Confirmed 07/29/18] Dextran 70/Hypromellose [Artificial Tears] 1 drop OP Q4HPRN PRN 07/29/18 [ History Confirmed 07/29/18] Isosorbide Mononitrate [Isosorbide Mononitrate ER] 30 mg PO DAILY 07/29/18 [ History Confirmed 07/29/18] Latanoprost 1 drop OP HS 07/29/18 [History Confirmed 07/29/18] Lisinopril [Zestril] 2.5 mg PO DAILY 07/29/18 [History Confirmed 07/29/18] Metoprolol Tartrate 50 mg PO BID 07/29/18 [History Confirmed 07/29/18] Azithromycin 250 mg [Zithromax 250 MG TABLET] 250 mg PO ZPACK #6 tablet [Rx] Methylprednisolone Packet [Medrol Dosepack] 4 mg PO UD #1 packet 08/01/18 [Rx] Allergies/Adverse Reactions: Allergies Allergy/AdvReac Type Severity Reaction Status Date / Time [facility] Severe Rash Verified 07/29/18 11:04 - Past Medical History Past Medical History: Yes Neurological History: No Pertinent History ENT History: No Pertinent History Cardiac History: Aneurysm, Hypertension Respiratory History: COPD, Sleep Apnea Endocrine Medical History: Diabetes Type II Musculoskelatal History: No Pertinent History GI Medical History: No Pertinent History, GERD History: No Pertinent History Pyscho-Social History: Anxiety Male Reproductive Disorders: No Pertinent History Comment: 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 Pt also states he had an increase of SOB and chest pain that he has seen Dr. Mallory for and he has been put on nitro. PT wears 2 L of oxygen at night and when he is resting during the day. - Past Surgical History Past Surgical History: Yes Neuro Surgical History: No Pertinent History Cardiac History: No Pertinent History Respiratory Surgery: Other GI Surgical History: Hernia Repair Genitourinary Surgical Hx: No Pertinent History Musculskeletal Surgical Hx: Orthopedic Surgery Male Surgical History: Vasectomy Other Surgical History: BACK SURGERY, and ear surgery and a left lung biopsy. - Social History Smoking Status: Former smoker How long have you smoked: 40 + Exposure to second hand smoke: No Alcohol: None Drug Use: none - Physical Exam Vital Signs: Vital Signs - 24 hr Temp Pulse Resp BP Pulse Ox 07/29/18 16:06 71 32 H 91 L 07/29/18 15:41 98.5 F 90 24 125/77 96 07/29/18 14:59 78 16 112/65 96 07/29/18 14:48 95 07/29/18 14:42 86 32 H 112/65 97 07/29/18 13:59 67 32 H 103/65 97 07/29/18 13:26 78 24 99/68 94 L 07/29/18 12:05 78 32 H 97 07/29/18 11:59 99.3 F 81 23 112/73 95 07/29/18 11:25 95 07/29/18 10:51 99.3 F 88 36 H 95 Oxygen-Last 24 hours O2 Percentage 4 Liters = 36% O2 Percentage 4 Liters = 36% O2 Percentage 4 Liters = 36% O2 Percentage 4 Liters = 36% General Appearance: no apparent distress, alert Neurologic Exam: alert, oriented x 3, cooperative, normal mood/affect, nml cerebellar function, nml station & gait, sensation nml, No motor deficits Eye Exam: PERRL/EOMI, eyes nml inspection Ears, Nose, Throat Exam: normal ENT inspection, TMs normal, pharynx normal, moist mucous membranes Neck Exam: normal inspection, non-tender, supple, full range of motion Respiratory Exam: diminished breath sounds, prolonged expirations, crackles/ rales, rhonchi, No respiratory distress Cardiovascular Exam: regular rate/rhythm, normal heart sounds, normal peripheral pulses Gastrointestinal/Abdomen Exam: soft, normal bowel sounds, No tenderness, No mass Back Exam: normal inspection, normal range of motion, No CVA tenderness, No vertebral tenderness Extremity Exam: normal inspection, normal range of motion, pelvis stable Skin Exam: normal color, warm, dry, No rash Lymphatic Exam: No adenopathy Results - Labs Lab/Micro Results: Lab Results-Last 24 Hours 07/29/18 07/29/18 07/29/18 Range/Units 11:15 11:15 11:15 WBC 20.2 H (4.0-10.5) K/mm3 RBC 5.20 (4.1-5.6) M/mm3 Hgb 14.2 (12.5-18.0) gm/dl Hct 42.7 (42-50) % MCV 82.1 (78-100) fl MCH 27.3 (26-32) pg MCHC 33.3 (32-36) g/dl RDW 15.5 H (11.5-14.0) % Plt Count 291 (150-450) K/mm3 MPV 9.5 (6-9.5) fl Gran % 87.2 H (36.0-66.0) % Eos # (Auto) 0.01 (0-0.5) Absolute Lymphs (auto) 1.02 (1.0-4.6) Absolute Monos (auto) 1.56 H (0.0-1.3) Lymphocytes % 5.0 L (24.0-44.0) % Monocytes % 7.7 (0.0-12.0) % Eosinophils % 0.0 (0.00-5.0) % Basophils % 0.1 (0.0-0.4) % Absolute Granulocytes 17.61 H (1.4-6.9) Basophils # 0.02 (0-0.4) PT 14.8 H (8.83-12.87) SECONDS INR 1.27 (0.8-3.0) D-Dimer 577 H* (215-500) ng/mL Puncture Site pCO2 (35-45) mmHg pO2 (75-100) mmHg Base Excess (-2.0-2.0) O2 Saturation (94-100) g/dF ABG pH (7.35-7.45) ABG HCO3 (22-28) ABG O2 Sat (Measured) (95-100) % Gokul Test A-a Gradient a/A Ratio Hemoglobin Carboxyhemoglobin (0.0-6.9) % THgb Methemoglobin (1.4-1.5) % Temperature C POC O2 Flow Rate % Sodium 135 L (137-145) mmol/L Potassium 3.7 (3.5-5.1) mmol/L Chloride 95 L (98-107) mmol/L Carbon Dioxide 28 (22-30) mmol/L Anion Gap 16.7 H (5-15) MEQ/L BUN 13 (9-20) mg/dL Creatinine 0.73 (0.66-1.25) mg/dL Estimated GFR > 60.0 ML/MIN Glucose 128 H (74-106) mg/dL Lactic Acid (0.4-2.0) Calcium 9.0 (8.4-10.2) mg/dL Total Bilirubin 2.10 H (0.2-1.3) mg/dL AST 25 (17-59) U/L ALT 47 (0-50) U/L Alkaline Phosphatase 50 (38-126) U/L Troponin I (0.000-0.034) ng/mL NT-Pro-B Natriuret Pep 403 (0-900) pg/mL Serum Total Protein 7.1 (6.3-8.2) g/dL Albumin 4.2 (3.5-5.0) g/dL Influenza Type A Ag (NEGATIVE) Influenza Type B Ag (NEGATIVE) RSV (PCR) (Negative) Slides for Path Review YES 07/29/18 07/29/18 07/29/18 Range/Units 11:15 12:00 12:15 WBC (4.0-10.5) K/mm3 RBC (4.1-5.6) M/mm3 Hgb (12.5-18.0) gm/dl Hct (42-50) % MCV (78-100) fl MCH (26-32) pg MCHC (32-36) g/dl RDW (11.5-14.0) % Plt Count (150-450) K/mm3 MPV (6-9.5) fl Gran % (36.0-66.0) % Eos # (Auto) (0-0.5) Absolute Lymphs (auto) (1.0-4.6) Absolute Monos (auto) (0.0-1.3) Lymphocytes % (24.0-44.0) % Monocytes % (0.0-12.0) % Eosinophils % (0.00-5.0) % Basophils % (0.0-0.4) % Absolute Granulocytes (1.4-6.9) Basophils # (0-0.4) PT (8.83-12.87) SECONDS INR (0.8-3.0) D-Dimer (215-500) ng/mL Puncture Site RIGHT RADIAL pCO2 41 (35-45) mmHg pO2 88 (75-100) mmHg Base Excess 4.1 H (-2.0-2.0) O2 Saturation 94.7 (94-100) g/dF ABG pH 7.45 (7.35-7.45) ABG HCO3 28.5 H (22-28) ABG O2 Sat (Measured) 96.7 (95-100) % Gokul Test YES A-a Gradient 146 a/A Ratio 0.38 Hemoglobin 14.1 Carboxyhemoglobin 1.3 (0.0-6.9) % THgb Methemoglobin 0.8 L (1.4-1.5) % Temperature 37.0 C POC O2 Flow Rate 40 % Sodium (137-145) mmol/L Potassium 3.6 (3.5-5.1) mmol/L Chloride (98-107) mmol/L Carbon Dioxide (22-30) mmol/L Anion Gap (5-15) MEQ/L BUN (9-20) mg/dL Creatinine (0.66-1.25) mg/dL Estimated GFR ML/MIN Glucose (74-106) mg/dL Lactic Acid 0.7 (0.4-2.0) Calcium (8.4-10.2) mg/dL Total Bilirubin (0.2-1.3) mg/dL AST (17-59) U/L ALT (0-50) U/L Alkaline Phosphatase (38-126) U/L Troponin I < 0.012 (0.000-0.034) ng/mL NT-Pro-B Natriuret Pep (0-900) pg/mL Serum Total Protein (6.3-8.2) g/dL Albumin (3.5-5.0) g/dL Influenza Type A Ag NEGATIVE (NEGATIVE) Influenza Type B Ag NEGATIVE (NEGATIVE) RSV (PCR) NEGATIVE (Negative) Slides for Path Review 07/29/18 Range/Units 14:55 WBC (4.0-10.5) K/mm3 RBC (4.1-5.6) M/mm3 Hgb (12.5-18.0) gm/dl Hct (42-50) % MCV (78-100) fl MCH (26-32) pg MCHC (32-36) g/dl RDW (11.5-14.0) % Plt Count (150-450) K/mm3 MPV (6-9.5) fl Gran % (36.0-66.0) % Eos # (Auto) (0-0.5) Absolute Lymphs (auto) (1.0-4.6) Absolute Monos (auto) (0.0-1.3) Lymphocytes % (24.0-44.0) % Monocytes % (0.0-12.0) % Eosinophils % (0.00-5.0) % Basophils % (0.0-0.4) % Absolute Granulocytes (1.4-6.9) Basophils # (0-0.4) PT (8.83-12.87) SECONDS INR (0.8-3.0) D-Dimer (215-500) ng/mL Puncture Site pCO2 (35-45) mmHg pO2 (75-100) mmHg Base Excess (-2.0-2.0) O2 Saturation (94-100) g/dF ABG pH (7.35-7.45) ABG HCO3 (22-28) ABG O2 Sat (Measured) (95-100) % Gokul Test A-a Gradient a/A Ratio Hemoglobin Carboxyhemoglobin (0.0-6.9) % THgb Methemoglobin (1.4-1.5) % Temperature C POC O2 Flow Rate % Sodium (137-145) mmol/L Potassium (3.5-5.1) mmol/L Chloride (98-107) mmol/L Carbon Dioxide (22-30) mmol/L Anion Gap (5-15) MEQ/L BUN (9-20) mg/dL Creatinine (0.66-1.25) mg/dL Estimated GFR ML/MIN Glucose (74-106) mg/dL Lactic Acid (0.4-2.0) Calcium (8.4-10.2) mg/dL Total Bilirubin (0.2-1.3) mg/dL AST (17-59) U/L ALT (0-50) U/L Alkaline Phosphatase (38-126) U/L Troponin I < 0.012 (0.000-0.034) ng/mL NT-Pro-B Natriuret Pep (0-900) pg/mL Serum Total Protein (6.3-8.2) g/dL Albumin (3.5-5.0) g/dL Influenza Type A Ag (NEGATIVE) Influenza Type B Ag (NEGATIVE) RSV (PCR) (Negative) Slides for Path Review - Radiology Impressions Radiology Exams & Impressions: Radiology Procedures Category Date Time Status CHEST 2 VIEWS (PA AND LAT) Stat Exams 07/29/18 11:21 Completed CHEST WITH CONTRAST [CT] Stat Exams 07/29/18 12:25 Completed - Other Procedures and Tests Respiratory Therapy 07/30/18 07:00 Peak Expiratory Flow Rate DAILY Respiratory Therapy Assessment DAILY 07/29/18 17:04 Oxygen NASAL CANNULA 4 lpm Assessment/Plan (1) Acute exacerbation of chronic obstructive airways disease Status: Acute Onset Date: ~07/29/18 Code(s): J44.1 - CHRONIC OBSTRUCTIVE PULMONARY DISEASE W (ACUTE) EXACERBATION (2) Anxiety Status: Chronic Code(s): F41.9 - ANXIETY DISORDER, UNSPECIFIED (3) Diabetes Status: Chronic Code(s): E11.9 - TYPE 2 DIABETES MELLITUS WITHOUT COMPLICATIONS (4) GERD (gastroesophageal reflux disease) Status: Chronic Code(s): K21.9 - GASTRO-ESOPHAGEAL REFLUX DISEASE WITHOUT ESOPHAGITIS (5) HTN (hypertension) Status: Chronic Code(s): I10 - ESSENTIAL (PRIMARY) HYPERTENSION
[2018-07-29] MEDS: solu-MEDROL 125 MG IV SCH (17:33)
[2018-07-29] MEDS ORDERED: Artificial Tears 15 ML OP PRN (17:35)
[2018-07-29] MEDS ORDERED: Nitrostat 0.4 MG Tablet SL PRN (17:35)
[2018-07-29] MEDS ORDERED: BUMEX 1 MG PO PRN (17:35)
[2018-07-29] MEDS ORDERED: Xalatan OP SCH (22:00)
[2018-07-29] MEDS: Advair Hfa 230/21 Mcg COMMON CANISTER IH SCH (23:23)
[2018-07-30] MEDS: solu-MEDROL 125 MG IV SCH ×4 (00:24→18:27)
[2018-07-30] MEDS: xanAX 0.5 MG PO SCH ×4 (00:24→21:27)
[2018-07-30] MEDS: Protonix 40MG Tablet PO SCH ×3 (00:24→21:27)
[2018-07-30] MEDS: Lopressor 50 MG PO SCH ×3 (00:24→21:27)
[2018-07-30] MEDS: Xalatan OP SCH ×2 (00:25→21:32)
[2018-07-30 05:25] LABS: Hematocrit 40.8 % (42-50); Hemoglobin 13.5 gm/dl (12.5-18.0); Mean Cell Volume 82.4 fl (78-100); Mean Corpuscular Hemoglobin 27.3 pg (26-32); Mean Corpuscular Hgb Concent. 33.1 g/dl (32-36); Mean Platelet Volume 9.5 fl (6-9.5); Platelet Count 255 K/mm3 (150-450); Red Blood Count 4.95 M/mm3 (4.1-5.6); Red Cell Distribution Width 15.5 % (11.5-14.0); White Blood Count 12.3 K/mm3 (4.0-10.5)
[2018-07-30] MEDS: PROVENTIL 2.5 MG/3 ML NEB IH SCH ×6 (05:36→23:30)
[2018-07-30 05:44] LABS: ANION GAP 14.1 MEQ/L (5-15); BLOOD UREA NITROGEN 12 mg/dL (9-20); CHLORIDE 95 mmol/L (98-107); Calcium 9.1 mg/dL (8.4-10.2); Carbon Dioxide 28 mmol/L (22-30); Creatinine 1 0.61 mg/dL (0.66-1.25); Glucose 163 mg/dL (74-106); SODIUM 133 mmol/L (137-145)
[2018-07-30] MEDS: Advair Hfa 230/21 Mcg COMMON CANISTER IH SCH ×2 (07:39→19:49)
[2018-07-30] MEDS: Spiriva 18 Mcg/Cap Inhaler IH SCH (07:40)
[2018-07-30] MEDS ORDERED: Ventolin Hfa MDI IH PRN (08:15)
[2018-07-30] MEDS ORDERED: PROVENTIL COMMON CANISTER IH PRN (08:19)
[2018-07-30] MEDS ORDERED: NON-FORMULARY ITEM (Aspirin [Aspirin] 81 MG) PO SCH (10:00)
[2018-07-30] MEDS ORDERED: NON-FORMULARY ITEM (Lisinopril [Zestril] 2.5 MG) PO SCH (10:00)
[2018-07-30] MEDS: Imdur 30 MG PO SCH (10:07)
[2018-07-30] MEDS: ROCEPHIN 1 Gm-D5w 50 ml Bag** 1 G/50 ML IVPB IV SCH (10:07)
[2018-07-30] MEDS: hydroDIURIL 25 MG PO SCH (10:07)
[2018-07-30] MEDS: ECOTRIN 81 MG PO SCH (10:08)
[2018-07-30] MEDS: Zestril 5 MG PO SCH (10:08)
[2018-07-30] MEDS: Zithromax 500 MG/ 250 ML NaCl Premix 500 MG/250 ML IVPB IV SCH (11:03)
[2018-07-31] MEDS: solu-MEDROL 125 MG IV SCH ×4 (00:05→22:05)
[2018-07-31] MEDS: PROVENTIL 2.5 MG/3 ML NEB IH SCH ×6 (03:35→23:28)
[2018-07-31 06:26] LABS: Hematocrit 41.8 % (42-50); Hemoglobin 13.9 gm/dl (12.5-18.0); Mean Cell Volume 82.6 fl (78-100); Mean Corpuscular Hemoglobin 27.5 pg (26-32); Mean Corpuscular Hgb Concent. 33.3 g/dl (32-36); Mean Platelet Volume 9.5 fl (6-9.5); Platelet Count 303 K/mm3 (150-450); Red Blood Count 5.06 M/mm3 (4.1-5.6); Red Cell Distribution Width 15.6 % (11.5-14.0); White Blood Count 16.5 K/mm3 (4.0-10.5)
[2018-07-31] MEDS: Spiriva 18 Mcg/Cap Inhaler IH SCH (07:13)
[2018-07-31] MEDS: Advair Hfa 230/21 Mcg COMMON CANISTER IH SCH ×2 (07:13→19:11)
[2018-07-31 07:16] LABS: ALBUMIN 3.9 g/dL (3.5-5.0); ALKALINE PHOSPHATASE 47 U/L (38-126); BLOOD UREA NITROGEN 16 mg/dL (9-20); CHLORIDE 94 mmol/L (98-107); Calcium 9.2 mg/dL (8.4-10.2); Carbon Dioxide 31 mmol/L (22-30); Creatinine 1 0.62 mg/dL (0.66-1.25); Glucose 156 mg/dL (74-106); Potassium 3.8 mmol/L (3.5-5.1); SGOT/AST 20 U/L (17-59); SGPT/ALT 34 U/L (0-50); SODIUM 135 mmol/L (137-145); Total Protein 6.7 g/dL (6.3-8.2)
[2018-07-31] MEDS: Zestril 5 MG PO SCH (09:04)
[2018-07-31] MEDS: Protonix 40MG Tablet PO SCH ×2 (09:06→22:04)
[2018-07-31] MEDS: xanAX 0.5 MG PO SCH ×3 (09:06→22:04)
[2018-07-31] MEDS: hydroDIURIL 25 MG PO SCH (09:06)
[2018-07-31] MEDS: Lopressor 50 MG PO SCH ×2 (09:06→22:04)
[2018-07-31] MEDS: Imdur 30 MG PO SCH (09:06)
[2018-07-31] MEDS: ECOTRIN 81 MG PO SCH (09:07)
[2018-07-31] MEDS: ROCEPHIN 1 Gm-D5w 50 ml Bag** 1 G/50 ML IVPB IV SCH (09:08)
[2018-07-31] MEDS: Zithromax 500 MG/ 250 ML NaCl Premix 500 MG/250 ML IVPB IV SCH (09:40)
[2018-07-31] MEDS: Glucophage 500 MG PO SCH (17:45)
[2018-07-31] MEDS: Xalatan OP SCH (22:12)
--- NOTE | 2018-07-31 22:45 | PCM.NOTE ---
Date and Time: 07/30/182243 Subjective Assessment: feels ok - Review of Systems Constitutional: No Fever, No Chills Eyes: No Symptoms Ears, Nose, & Throat: No Symptoms Respiratory: No Cough, No Short Of Breath Cardiac: No Chest Pain, No Edema, No Syncope Abdominal/Gastrointestinal: No Abdominal Pain, No Nausea, No Vomiting, No Diarrhea Genitourinary Symptoms: No Dysuria Musculoskeletal: No Back Pain, No Neck Pain Skin: No Rash Neurological: No Dizziness, No Focal Weakness, No Sensory Changes Psychological: No Symptoms Endocrine: No Symptoms Hematologic/Lymphatic: No Symptoms Immunological/Allergic: No Symptoms Objective Exam General Appearance: no apparent distress, alert Neurologic Exam: alert, oriented x 3, cooperative, normal mood/affect, nml cerebellar function, sensation nml, No motor deficits Skin Exam: normal color, warm, dry Eye Exam: PERRL, EOMI, eyes nml inspection Ears, Nose, Throat Exam: normal ENT inspection, pharynx normal, moist mucous membranes Neck Exam: normal inspection, non-tender, supple, full range of motion Respiratory Exam: normal breath sounds, lungs clear, No respiratory distress Cardiovascular Exam: regular rate/rhythm, normal heart sounds Gastrointestinal/Abdomen Exam: soft, No tenderness, No mass Extremity Exam: normal inspection, normal range of motion Back Exam: normal inspection, normal range of motion, No CVA tenderness, No vertebral tenderness Male Genitalia Exam: deferred Rectal Exam: deferred OBJECTIVE DATA Vital Signs: Vital Signs - 24 hr Temp Pulse Resp BP Pulse Ox 07/31/18 20:00 85 F 83 H 117/62 94 L 07/31/18 18:57 77 21 93 L 07/31/18 16:00 98.3 F 65 22 105/64 93 L 07/31/18 14:35 61 20 94 L 07/31/18 12:00 97.6 F 71 22 126/63 93 L 07/31/18 11:00 79 18 93 L 07/31/18 08:00 97.6 F 84 20 123/66 93 L 07/31/18 07:20 84 20 93 L 07/31/18 04:00 98.1 F 76 22 138/78 95 07/31/18 03:59 76 22 95 07/31/18 00:04 97.7 F 65 20 122/67 96 07/31/18 00:00 20 07/30/18 23:31 65 20 96 Oxygen-Last 24 hours O2 Percentage 3 Liters = 32% O2 Percentage 3 Liters = 32% O2 Percentage 3 Liters = 32% O2 Percentage 3 Liters = 32% O2 Percentage 3 Liters = 32% O2 Percentage 3 Liters = 32% Pain Assessment - Last Documented Pain Intensity 0 Pain Scale Used 0-10 Pain Scale Intake and Output: Intake & Output 07/29/18 07/30/18 07/31/18 08/01/18 11:59 11:59 11:59 11:59 Intake Total 1200 2040 1340 Output Total 1550 4850 400 Balance -350 -2810 940 Weight 96.615 kg 93.4 kg 95 kg 95 kg Lab Results: Accuchecks Date 07/31/18 Date 07/31/18 Date 07/31/18 Accucheck Value: 124 Accucheck Value: 152 Accucheck Value: 156 Lab Results-Last 24 Hours 07/31/18 07/31/18 Range/Units 05:55 05:55 WBC 16.5 H (4.0-10.5) K/mm3 RBC 5.06 (4.1-5.6) M/mm3 Hgb 13.9 (12.5-18.0) gm/dl Hct 41.8 L (42-50) % MCV 82.6 (78-100) fl MCH 27.5 (26-32) pg MCHC 33.3 (32-36) g/dl RDW 15.6 H (11.5-14.0) % Plt Count 303 (150-450) K/mm3 MPV 9.5 (6-9.5) fl Sodium 135 L (137-145) mmol/L Potassium 3.8 (3.5-5.1) mmol/L Chloride 94 L (98-107) mmol/L Carbon Dioxide 31 H (22-30) mmol/L Anion Gap 14.0 (5-15) MEQ/L BUN 16 (9-20) mg/dL Creatinine 0.62 L (0.66-1.25) mg/dL Estimated GFR > 60.0 ML/MIN Glucose 156 H (74-106) mg/dL Calcium 9.2 (8.4-10.2) mg/dL Total Bilirubin 0.90 (0.2-1.3) mg/dL AST 20 (17-59) U/L ALT 34 (0-50) U/L Alkaline Phosphatase 47 (38-126) U/L Serum Total Protein 6.7 (6.3-8.2) g/dL Albumin 3.9 (3.5-5.0) g/dL Multi-Disciplinary Progress Notes: Multi-Disciplinary Progress Notes 07/31/18 13:00 (created 07/31/18 13:13) Case Management Note by Manjula Box DR. ROUNDED AND EVALUATED, DISCUSSED PLAN OF CARE WITH PT, ALL QUESTIONS ANSWERED AT THIS TIME. PT VERBALIZED UNDERSTANDING AND ABLE TO REPEAT INFORMATION BACK. NO ADDNL NEEDS NOTED AT PRESENT TIME. WILL DECREASE SOLUMEDROL TO 80MG IV Q8H AND PLAN FOR DC HOME TOMORROW. Initialized on 07/31/18 13:13 - END OF NOTE Assessment/Plan (1) Acute exacerbation of chronic obstructive airways disease Current Visit: Yes Status: Acute Onset Date: ~07/29/18 Code(s): J44.1 - CHRONIC OBSTRUCTIVE PULMONARY DISEASE W (ACUTE) EXACERBATION (2) Anxiety Current Visit: Yes Status: Chronic Code(s): F41.9 - ANXIETY DISORDER, UNSPECIFIED (3) Diabetes Current Visit: Yes Status: Chronic Code(s): E11.9 - TYPE 2 DIABETES MELLITUS WITHOUT COMPLICATIONS (4) GERD (gastroesophageal reflux disease) Current Visit: Yes Status: Chronic Code(s): K21.9 - GASTRO-ESOPHAGEAL REFLUX DISEASE WITHOUT ESOPHAGITIS (5) HTN (hypertension) Current Visit: Yes Status: Chronic Code(s): I10 - ESSENTIAL (PRIMARY) HYPERTENSION
[2018-08-01] MEDS: PROVENTIL 2.5 MG/3 ML NEB IH SCH ×3 (04:01→10:10)
[2018-08-01] MEDS: solu-MEDROL 125 MG IV SCH (05:41)
[2018-08-01] MEDS: Advair Hfa 230/21 Mcg COMMON CANISTER IH SCH (06:38)
[2018-08-01] MEDS: Spiriva 18 Mcg/Cap Inhaler IH SCH (06:38)
[2018-08-01] MEDS: Glucophage 500 MG PO SCH (09:05)
[2018-08-01] MEDS: Zestril 5 MG PO SCH (09:11)
[2018-08-01] MEDS: ECOTRIN 81 MG PO SCH (09:11)
[2018-08-01] MEDS: Protonix 40MG Tablet PO SCH (09:11)
[2018-08-01] MEDS: Lopressor 50 MG PO SCH (09:11)
[2018-08-01] MEDS: hydroDIURIL 25 MG PO SCH (09:11)
[2018-08-01] MEDS: Imdur 30 MG PO SCH (09:11)
[2018-08-01] MEDS: xanAX 0.5 MG PO SCH (09:11)
[2018-08-01] MEDS: ROCEPHIN 1 Gm-D5w 50 ml Bag** 1 G/50 ML IVPB IV SCH (09:12)
[2018-08-01] MEDS: Zithromax 500 MG/ 250 ML NaCl Premix 500 MG/250 ML IVPB IV SCH (09:46)
[2018-08-01 12:15] VITALS: BP 130/67; PULSE 63; O2SAT 95
== END 2018-08-01 13:57 | disposition home or self-care (01) | DRG 192 ==
LOC: ED 10:46 → MED SURG 15:19
PROVIDERS: ADMIT General Practice; ATTEND General Practice
DX: J18.9 Pneumonia, unspecified organism (principal); J44.1 Chronic obstructive pulmonary disease with (acute) exacerbation; I10 Essential (primary) hypertension; G47.30 Sleep apnea, unspecified; E11.9 Type 2 diabetes mellitus without complications; Z79.4 Long term (current) use of insulin; K21.9 Gastro-esophageal reflux disease without esophagitis; F41.9 Anxiety disorder, unspecified; Z79.899 Other long term (current) drug therapy
CPT/HCPCS: 36000; 36415; 36600; 71046; 71260; 80048; 80053; 82375; 82803; 82962; 83036; 83605; 83880; 84484; 85025; 85027; 85379; 85610; 87040; 87631; 93005; 93041; 94150; 94640; 94760; 96365; 96374; 96375; 99285; J0456; J0696; J2060; J2930; J7609; A9270-GY

== ENCOUNTER 2018-10-13 21:11 | Observation (INO) | payer MEDICARE ==
[2018-10-13] MEDS ORDERED: Zofran 4 MG/2 ML VIAL IV ONE (22:14)
[2018-10-13] MEDS ORDERED: DUONEB 0.5-3 MG/3 ml Neb IH ONE ×2 (22:14→22:29)
[2018-10-13] MEDS ORDERED: solu-MEDROL 125 MG IV ONE (22:14)
[2018-10-13] MEDS ORDERED: ROCEPHIN 1 Gm-D5w 50 ml Bag** 1 G/50 ML IVPB IV STA (22:14)
[2018-10-13] MEDS ORDERED: Sodium Chloride 0.9% 1000 ML 1,000 ML IV SCH (22:15)
--- NOTE | 2018-10-13 22:15 | ERPHSYRPT ---
- History of Present Illness Time Seen by Provider: 10/13/18 22:10 Source: patient, family Exam Limitations: no limitations Physician History: pt is 73 year old male with hx COPD on home O2 and pneumonia 1 month ago completed ab , but now having recurrent fevers and productive cough with shortness of breath some no no v ; epigastric abd pain; Timing/Duration: day(s) Severity of Dyspnea-Max: moderate Severity of Dyspnea-Current: moderate Possible Cause: frequent episodes Modifying Factors: Improves With: nothing, coughing Associated Symptoms: cough, wheezing, productive cough Allergies/Adverse Reactions: nicotine [From [facility]] Allergy (Severe, Verified 07/29/18 11:04) Rash Home Medications: Albuterol 2.5 mg/3 ml Neb [Proventil 2.5 mg/3 ml Neb] 2.5 mg IH QID [History] Aspirin 81 mg PO DAILY 02/04/14 [History] Budesonide/Formoterol Fumarate [Symbicort 160-4.5 Mcg Inhaler] 2 puff IH BID 04/12 [History] Hydrochlorothiazide 25 mg [hydroDIURIL 25 MG] 25 mg PO DAILY 02/04/14 [ History] Metformin HCl 500 mg [Glucophage 500 MG] 500 mg PO BIDAC 02/04/14 [History ] Omeprazole 20 MG [Prilosec 20 mg] 40 mg PO BID 02/04/14 [History] Tiotropium Marina Inhaler [Spiriva 18 Mcg/Cap Inhaler] 1 ea IH DAILY 04/12 [History] Albuterol 8 gm Mdi Hfa [Ventolin Hfa MDI] 2 puff IH Q6HPRN PRN 08/01/16 [ History] Alprazolam 0.5 mg PO TID 08/01/16 [History] Bumetanide 1 mg [Bumex 1 mg] 1 mg PO DAILY PRN PRN 08/01/16 [History] Nitroglycerin 0.4 mg Tablet [Nitrostat 0.4 MG Tablet] 0.4 mg SL Q5MIN PRN MR X 3 PRN 01/03/17 [History] Isosorbide Mononitrate [Isosorbide Mononitrate ER] 30 mg PO DAILY 07/29/18 [ History] Latanoprost 1 drop OP HS 07/29/18 [History] Lisinopril [Zestril] 2.5 mg PO DAILY 07/29/18 [History] Metoprolol Tartrate 50 mg PO BID 07/29/18 [History] levoFLOXacin [Levofloxacin] 500 mg PO DAILY 09/14/18 [History] Hx Tetanus, Diphtheria Vaccination/Date Given: No Hx Influenza Vaccination/Date Given: Yes Hx Pneumococcal Vaccination/Date Given: Yes - Review of Systems Constitutional: Fever, No Chills Eyes: No Symptoms Ears, Nose, & Throat: No Symptoms Respiratory: Cough, Dyspnea, Wheezing Cardiac: No Chest Pain, No Edema, No Syncope Abdominal/Gastrointestinal: Abdominal Pain, Nausea, No Vomiting, No Diarrhea Genitourinary Symptoms: No Dysuria Musculoskeletal: No Back Pain, No Neck Pain Skin: No Rash Neurological: No Dizziness, No Focal Weakness, No Sensory Changes Psychological: No Symptoms Endocrine: No Symptoms All Other Systems: Reviewed and Negative - Past Medical History Pertinent Past Medical History: Yes Neurological History: No Pertinent History ENT History: No Pertinent History Cardiac History: Aneurysm, Hypertension Respiratory History: COPD, Sleep Apnea Endocrine Medical History: Diabetes Type II Musculoskeletal History: No Pertinent History GI Medical History: No Pertinent History, GERD History: No Pertinent History Psycho-Social History: Anxiety Male Reproductive Disorders: No Pertinent History Other Medical History: 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 Pt also states he had an increase of SOB and chest pain that he has seen Dr. Mallory for and he has been put on nitro. PT wears 2 L of oxygen at night and when he is resting during the day. - Past Surgical History Past Surgical History: Yes Neuro Surgical History: No Pertinent History Cardiac: No Pertinent History Respiratory: Other Gastrointestinal: Hernia Repair Genitourinary: No Pertinent History Musculoskeletal: Orthopedic Surgery Male Surgical History: Vasectomy Other Surgical History: BACK SURGERY, and ear surgery and a left lung biopsy. 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 - Social History Smoking Status: Former smoker How long have you smoked: 40 + Exposure to second hand smoke: No Drug Use: none Patient Lives Alone: No - Nursing Vital Signs Nursing Vital Signs: Initial Vital Signs Temperature 98.1 F 10/13/18 22:03 Pulse Rate 88 10/13/18 22:03 Respiratory Rate 30 H 10/13/18 22:03 Blood Pressure 157/91 10/13/18 22:03 O2 Sat by Pulse Oximetry 85 L 10/13/18 22:03 Pain Scale Pain Intensity 0 - Physical Exam General Appearance: mild distress, alert Eye Exam: PERRL/EOMI Neck Exam: normal inspection, supple Respiratory Exam: airway intact, crackles/rales, rhonchi Cardiovascular/Chest Exam: normal heart sounds, regular rate/rhythm Abdominal/Gastrointestinal Exam: soft, tenderness, No distention, No mass, No rebound Extremity Exam: non-tender, normal range of motion, normal inspection, no calf tenderness, no pedal edema Peripheral Pulses Exam: carotid (R): 2+, carotid (L): 2+, femoral (R): 2+, femoral (L): 2+, dorsalis-pedis (R): 2+, dorsalis-pedis (L): 2+ Neurologic Exam: alert, oriented x 3, cooperative, assignment editor II-XII nml as tested, sensation nml, No motor deficits Skin Exam: normal color, warm, No dry SpO2 Interpretation: borderline oxygenation O2 Delivery: Oxymask - Course Nursing assessment & vital signs reviewed: Yes EKG Interpreted by Me: Sinus Rhythm, NORMAL INTERVALS, Right Bundle Branch Block , Non-specific ST Changes - Radiology Exams Chest X-ray Interpretation: Reviewed by me, Infiltrates (diffuse interstitial infiltrates /lung disease) - CT Exams Abdomen/Pelvis CT Interpretation: Tele-radiologist Report, Other Ordered Tests: Active Orders 24 hr Category Date Time Status Interactive Digital Media Specialist STAT Care 10/13/18 22:17 Active Clean Catch Urine Specimen STAT Care 10/13/18 22:14 Active EKG-ER Only STAT Care 10/13/18 22:14 Active IV Insertion STAT Care 10/13/18 22:14 Active Pulse Oximetry (ED) STAT Care 10/13/18 22:14 Active ABDOMEN AND PELVIS W/0 CONTRAS [CT] Stat Exams 10/13/18 22:16 Taken CHEST 2 VIEWS (PA AND LAT) Stat Exams 10/13/18 22:16 Taken AMYLASE Stat Lab 10/13/18 22:15 Completed CBC W DIFF Stat Lab 10/13/18 22:15 Completed CMP Stat Lab 10/13/18 22:15 Completed LIPASE Stat Lab 10/13/18 22:15 Completed Lactic Acid Stat Lab 10/13/18 22:24 Completed NT PRO BNP Stat Lab 10/13/18 22:15 Completed TROPONIN Q3H Lab 10/13/18 22:15 Completed TROPONIN Q3H Lab 10/14/18 01:15 Ordered TROPONIN Q3H Lab 10/14/18 04:15 Ordered TROPONIN Q3H Lab 10/14/18 07:15 Ordered TROPONIN Q3H Lab 10/14/18 10:15 Ordered UA W/RFX UR CULTURE Stat Lab 10/13/18 22:15 Uncollected Respiratory Nebulizer STAT RT 10/13/18 22:18 Completed Respiratory Therapy Assessment DAILY RT 10/13/18 22:37 Completed Medication Summary Generic Name Dose Route Start Last Admin Trade Name Freq PRN Reason Stop Dose Admin Sodium Chloride 1,000 mls @ 50 mls/hr 10/13/18 22:15 10/13/18 22:56 Sodium Chloride 0.9% 1000 Ml IV 11/12/18 22:14 50 mls/hr .Q20H FAHEEM Administration Discontinued Medications Generic Name Dose Route Start Last Admin Trade Name Freq PRN Reason Stop Dose Admin Albuterol/Ipratropium 3 ml 10/13/18 22:14 10/13/18 22:33 Duoneb 0.5-3 Mg/3 Ml Neb IH 10/13/18 22:15 3 ml STAT ONE Administration Albuterol/Ipratropium Confirm 10/13/18 22:29 Duoneb 0.5-3 Mg/3 Ml Neb Administered 10/13/18 22:30 Dose 3 ml IH .STK-MED ONE Ceftriaxone Sodium/Dextrose 1 g in 50 mls @ 100 mls/hr 10/13/18 22:14 22:57 Rocephin 1 Gm-D5w 50 Ml Bag IV 10/13/18 22:43 100 mls/hr STAT STA 100 mls/hr Administration Piperacillin Sod/Tazobactam Sod 3.375 gm in 100 mls @ 200 mls/hr 10/13/18 22: 19 10/13/18 23:44 Zosyn 3.375gm/100 Ml D5w IV 10/13/18 22:48 200 mls/hr STAT STA 200 mls/hr Administration Ceftriaxone Sodium/Dextrose Confirm 10/13/18 22:44 Rocephin 1 Gm-D5w 50 Ml Bag Administered 10/13/18 22:45 Dose 1 g in 50 mls @ ud IV .STK-MED ONE Piperacillin Sod/Tazobactam Sod Confirm 10/13/18 23:15 Zosyn 3.375gm/100 Ml D5w Administered 10/13/18 23:16 Dose 3.375 gm in 100 mls @ ud IV .STK-MED ONE Methylprednisolone Sodium Succinate 125 mg 10/13/18 22:14 10/13/18 22:56 Solu-Medrol 125 Mg IV 10/13/18 22:15 125 mg STAT ONE Administration Methylprednisolone Sodium Succinate Confirm 10/13/18 22:44 Solu-Medrol 125 Mg Administered 10/13/18 22:45 Dose 125 mg .ROUTE .STK-MED ONE Ondansetron HCl 4 mg 10/13/18 22:14 10/13/18 22:56 Zofran 4 Mg/2 Ml Vial IV 10/13/18 22:15 4 mg STAT ONE Administration Ondansetron HCl Confirm 10/13/18 22:44 Zofran 4 Mg/2 Ml Vial Administered 10/13/18 22:45 Dose 4 mg .ROUTE .STK-MED ONE Lab/Rad Data: Laboratory Result Diagrams 10/13/18 22:15 10/13/18 22:15 Laboratory Results 10/13/18 10/13/18 10/13/18 Range/Units 22:30 22:24 22:15 WBC (4.0-10.5) K/mm3 RBC (4.1-5.6) M/mm3 Hgb (12.5-18.0) gm/dl Hct (42-50) % MCV (78-100) fl MCH (26-32) pg MCHC (32-36) g/dl RDW (11.5-14.0) % Plt Count (150-450) K/mm3 MPV (6-9.5) fl Gran % (36.0-66.0) % Eos # (Auto) (0-0.5) Absolute Lymphs (auto) (1.0-4.6) Absolute Monos (auto) (0.0-1.3) Lymphocytes % (24.0-44.0) % Monocytes % (0.0-12.0) % Eosinophils % (0.00-5.0) % Basophils % (0.0-0.4) % Absolute Granulocytes (1.4-6.9) Basophils # (0-0.4) Sodium (137-145) mmol/L Potassium (3.5-5.1) mmol/L Chloride (98-107) mmol/L Carbon Dioxide (22-30) mmol/L Anion Gap (5-15) MEQ/L BUN (9-20) mg/dL Creatinine (0.66-1.25) mg/dL Estimated GFR ML/MIN Glucose (74-106) mg/dL Lactic Acid 1.1 (0.4-2.0) Calcium (8.4-10.2) mg/dL Total Bilirubin (0.2-1.3) mg/dL AST (17-59) U/L ALT (0-50) U/L Alkaline Phosphatase (38-126) U/L Troponin I < 0.012 (0.000-0.034) ng/mL NT-Pro-B Natriuret Pep (0-900) pg/mL Serum Total Protein (6.3-8.2) g/dL Albumin (3.5-5.0) g/dL Amylase (30-110) U/L Lipase (23-300) U/L Influenza Type A Ag NEGATIVE (NEGATIVE) Influenza Type B Ag NEGATIVE (NEGATIVE) RSV (PCR) NEGATIVE (Negative) 10/13/18 10/13/18 Range/Units 22:15 22:15 WBC 11.7 H (4.0-10.5) K/mm3 RBC 4.96 (4.1-5.6) M/mm3 Hgb 13.6 (12.5-18.0) gm/dl Hct 41.6 L (42-50) % MCV 83.9 (78-100) fl MCH 27.4 (26-32) pg MCHC 32.7 (32-36) g/dl RDW 14.9 H (11.5-14.0) % Plt Count 331 (150-450) K/mm3 MPV 9.2 (6-9.5) fl Gran % 76.6 H (36.0-66.0) % Eos # (Auto) 0.19 (0-0.5) Absolute Lymphs (auto) 1.52 (1.0-4.6) Absolute Monos (auto) 0.99 (0.0-1.3) Lymphocytes % 13.0 L (24.0-44.0) % Monocytes % 8.5 (0.0-12.0) % Eosinophils % 1.6 (0.00-5.0) % Basophils % 0.3 (0.0-0.4) % Absolute Granulocytes 8.97 H (1.4-6.9) Basophils # 0.03 (0-0.4) Sodium 131 L (137-145) mmol/L Potassium 4.1 (3.5-5.1) mmol/L Chloride 89 L (98-107) mmol/L Carbon Dioxide 32 H (22-30) mmol/L Anion Gap 13.6 (5-15) MEQ/L BUN 12 (9-20) mg/dL Creatinine 0.65 L (0.66-1.25) mg/dL Estimated GFR > 60.0 ML/MIN Glucose 115 H (74-106) mg/dL Lactic Acid (0.4-2.0) Calcium 9.4 (8.4-10.2) mg/dL Total Bilirubin 1.40 H (0.2-1.3) mg/dL AST 33 (17-59) U/L ALT 52 H (0-50) U/L Alkaline Phosphatase 57 (38-126) U/L Troponin I (0.000-0.034) ng/mL NT-Pro-B Natriuret Pep 363 (0-900) pg/mL Serum Total Protein 7.3 (6.3-8.2) g/dL Albumin 4.2 (3.5-5.0) g/dL Amylase 53 (30-110) U/L Lipase 96 (23-300) U/L Influenza Type A Ag (NEGATIVE) Influenza Type B Ag (NEGATIVE) RSV (PCR) (Negative) - Progress Progress: improved, re-examined Air Movement: good Progress Note: 10/14/18 00:55 discussed with pt , family and Dr. Lima and will place pt on obs for exacerbation of COPD Blood Culture(s) Obtained: No Antibiotics given: Yes Discussed with : Janie Will see patient in: hospital (observation) Counseled pt/family regarding: lab results, diagnosis, need for follow-up, rad results - Departure Time of Disposition: 00:55 Departure Disposition: Observation Clinical Impression: SOB (shortness of breath), Acute exacerbation of chronic obstructive airways disease, COPD (chronic obstructive pulmonary disease), CAD (coronary artery disease), Umbilical hernia, Chronic liver disease Condition: Good Critical Care Time: No Referrals: KRUPA MAZA MD [Primary Care Provider] - Instructions: Chronic Obstructive Pulmonary Disease
[2018-10-13] MEDS ORDERED: Zosyn 3.375GM/100 Ml D5W 3.375 GM/100 ML IVPB IV STA (22:19)
[2018-10-13 22:33] LABS: BASOPHIL % 0.3 % (0.0-0.4); Basophil (Absolute #) 0.03 (0-0.4); Eosinophil % 1.6 % (0.00-5.0); Eosinophil (Absolute #) 0.19 (0-0.5); Granulocyte Absolute (ANC) 8.97 (1.4-6.9); Granulocytes % 76.6 % (36.0-66.0); Hematocrit 41.6 % (42-50); Hemoglobin 13.6 gm/dl (12.5-18.0); Lymphocyte (Absolute #) 1.52 (1.0-4.6); Mean Cell Volume 83.9 fl (78-100); Mean Corpuscular Hemoglobin 27.4 pg (26-32); Mean Corpuscular Hgb Concent. 32.7 g/dl (32-36); Mean Platelet Volume 9.2 fl (6-9.5); Monocyte (Absolute #) 0.99 (0.0-1.3); Monocytes % 8.5 % (0.0-12.0); Platelet Count 331 K/mm3 (150-450); Red Blood Count 4.96 M/mm3 (4.1-5.6); Red Cell Distribution Width 14.9 % (11.5-14.0); White Blood Count 11.7 K/mm3 (4.0-10.5)
[2018-10-13] MEDS ORDERED: Sodium Chloride 0.9% 1000 ML 1,000 ML ONE (22:44)
[2018-10-13] MEDS ORDERED: Zofran 4 MG/2 ML VIAL ONE (22:44)
[2018-10-13] MEDS ORDERED: solu-MEDROL 125 MG ONE (22:44)
[2018-10-13] MEDS ORDERED: ROCEPHIN 1 Gm-D5w 50 ml Bag** 1 G/50 ML IVPB IV ONE (22:44)
[2018-10-13 22:53] LABS: ALBUMIN 4.2 g/dL (3.5-5.0); ALKALINE PHOSPHATASE 57 U/L (38-126); AMYLASE 53 U/L (30-110); ANION GAP 13.6 MEQ/L (5-15); BLOOD UREA NITROGEN 12 mg/dL (9-20); CHLORIDE 89 mmol/L (98-107); Calcium 9.4 mg/dL (8.4-10.2); Carbon Dioxide 32 mmol/L (22-30); Creatinine 1 0.65 mg/dL (0.66-1.25); Glucose 115 mg/dL (74-106); LIPASE 96 U/L (23-300); NT PRO BNP 363 pg/mL (0-900); Potassium 4.1 mmol/L (3.5-5.1); SGOT/AST 33 U/L (17-59); SGPT/ALT 52 U/L (0-50); SODIUM 131 mmol/L (137-145); Total Protein 7.3 g/dL (6.3-8.2)
[2018-10-13 23:05] LABS: INFLUENZA A NEGATIVE (NEGATIVE); INFLUENZA B NEGATIVE (NEGATIVE); RESPIRATORY SYNCTIAL VIRUS NEGATIVE (Negative)
[2018-10-13] MEDS ORDERED: Zosyn 3.375GM/100 Ml D5W 3.375 GM/100 ML IVPB IV ONE (23:15)
[2018-10-14 01:47] LABS: Appearance CLEAR (CLEAR); Bilirubin NEGATIVE (NEGATIVE); Blood NEGATIVE Ery/ul (0-5); Glucose NEGATIVE (NEGATIVE); Ketones TRACE (NEGATIVE); Leukocyte Esterase NEGATIVE (NEGATIVE); Nitrite NEGATIVE (NEGATIVE); Protein,Urine Dip NEGATIVE (Negative); Specific Gravity 1.014 (1.005-1.025); Urobilinogen 4 mg/dL (0-1)
[2018-10-14] MEDS ORDERED: NovoLIN R SQ PRN (03:26)
[2018-10-14] MEDS: DUONEB 0.5-3 MG/3 ml Neb IH SCH ×2 (04:01→08:52)
[2018-10-14] MEDS: Zosyn 3.375GM/100 Ml D5W 3.375 GM/100 ML IVPB IV SCH ×2 (05:26→11:17)
[2018-10-14] MEDS: solu-MEDROL 125 MG IV SCH ×2 (05:26→11:17)
[2018-10-14 06:36] LABS: Hematocrit 42.5 % (42-50); Mean Cell Volume 84.7 fl (78-100); Mean Corpuscular Hemoglobin 27.9 pg (26-32); Mean Corpuscular Hgb Concent. 32.9 g/dl (32-36); Mean Platelet Volume 9.9 fl (6-9.5); Platelet Count 332 K/mm3 (150-450); Red Blood Count 5.02 M/mm3 (4.1-5.6); Red Cell Distribution Width 14.8 % (11.5-14.0); White Blood Count 9.9 K/mm3 (4.0-10.5)
[2018-10-14 06:38] LABS: ALBUMIN 4.1 g/dL (3.5-5.0); ALKALINE PHOSPHATASE 54 U/L (38-126); ANION GAP 14.5 MEQ/L (5-15); BLOOD UREA NITROGEN 10 mg/dL (9-20); CHLORIDE 91 mmol/L (98-107); Calcium 9.2 mg/dL (8.4-10.2); Carbon Dioxide 32 mmol/L (22-30); Creatinine 1 0.71 mg/dL (0.66-1.25); Glucose 154 mg/dL (74-106); Potassium 4.2 mmol/L (3.5-5.1); SGOT/AST 31 U/L (17-59); SGPT/ALT 50 U/L (0-50); SODIUM 133 mmol/L (137-145); Total Protein 7.2 g/dL (6.3-8.2)
[2018-10-14] MEDS ORDERED: Advair Hfa 230/21 Mcg COMMON CANISTER IH SCH (07:00)
[2018-10-14] MEDS ORDERED: PROVENTIL COMMON CANISTER IH PRN ×2 (07:00→11:06)
[2018-10-14] MEDS: Spiriva 18 Mcg/Cap Inhaler IH SCH ×2 (08:56→10:14)
--- NOTE | 2018-10-14 09:13 | XRAY ---
Indication: Abdomen pain and distention. Elevated WBC. Multiple contiguous axial images obtained through the abdomen and pelvis without contrast as ordered. Comparison: March 05, 2011. Lung bases again hyperinflated with new bibasilar atelectasis/scarring. No consolidation or effusion. Heart is not enlarged. Noncontrasted stomach and bowel loops appear nonobstructed. Normal appendix. Mild diffuse scattered colonic fecal debris. No free fluid/air. Enlarged prostate gland now impresses on the base of the bladder. Again diffuse fatty liver. Gallbladder is moderately distended without gallstones. Remaining pancreas, spleen, adrenal glands, kidneys, ureters, and bladder appear unremarkable for noncontrast exam. Moderate aortoiliac calcifications without AAA. Osseous structures again demonstrates mild/moderate lower lumbar degenerative spondylosis. No ventral or inguinal hernias. Again partially visualized right scrotal hydrocele. Impression: 1. Gallbladder now distended without gallstones. Gallbladder sonogram may yield further information if clinically warranted. 2. Mild fecal stasis without obstruction. 3. New enlarged prostate gland. 4. Stable fatty liver and right scrotal hydrocele. Comment: Preliminary interpretation was made by C. No discrepancy. CT DI 22.93
--- NOTE | 2018-10-14 09:15 | XRAY ---
Indication: Short of breath. Comparison: September 04, 2018. PA/lateral chest unchanged again demonstrating COPD, CIPD, left infrahilar calcified granuloma, and left lung suture material. Heart and mediastinal structures within normal limits. No new/acute findings.
[2018-10-14] MEDS ORDERED: Nitrostat 0.4 MG Tablet SL PRN (09:58)
[2018-10-14] MEDS ORDERED: BUMEX 1 MG PO PRN (09:58)
[2018-10-14] MEDS ORDERED: Ventolin Hfa MDI IH PRN (09:58)
[2018-10-14] MEDS ORDERED: HYPROMELLOSE OP SCH (10:00)
[2018-10-14] MEDS ORDERED: NON-FORMULARY ITEM (Budesonide/Formoterol Fumarate [Symbicort 80-4.5 Mcg Inhaler] 2 PUFFS) IH SCH (10:00)
[2018-10-14] MEDS ORDERED: DEXTRAN OP SCH (10:00)
[2018-10-14] MEDS ORDERED: Imdur 30 MG PO SCH (10:00)
[2018-10-14] MEDS ORDERED: Protonix 40MG Tablet PO SCH (10:00)
[2018-10-14] MEDS ORDERED: Lopressor 50 MG PO SCH (10:00)
[2018-10-14] MEDS ORDERED: NON-FORMULARY ITEM (Lisinopril [Zestril] 2.5 MG) PO SCH (10:00)
[2018-10-14] MEDS ORDERED: NON-FORMULARY ITEM (Aspirin [Aspirin] 81 MG) PO SCH (10:00)
[2018-10-14] MEDS ORDERED: XANAX 1 MG PO SCH (10:00)
[2018-10-14] MEDS ORDERED: hydroDIURIL 25 MG PO SCH (10:00)
[2018-10-14] MEDS ORDERED: NON-FORMULARY ITEM (Omeprazole 20 Mg [Prilosec 20 Mg] 40 MG) PO SCH (10:00)
[2018-10-14] MEDS ORDERED: Glucophage 500 MG PO SCH (10:00)
[2018-10-14] MEDS ORDERED: NON-FORMULARY ITEM (Theophylline Anhydrous [Theophylline Anhydrous] 300 MG) PO SCH (10:00)
[2018-10-14] MEDS ORDERED: NEURONTIN 300 MG PO SCH (10:00)
[2018-10-14] MEDS ORDERED: THEOPHYLLINE ER 24HR PO SCH (11:00)
[2018-10-14] MEDS: PROVENTIL 2.5 MG/3 ML NEB IH SCH ×2 (11:44→12:09)
[2018-10-14 12:59] VITALS: BP 107/55; PULSE 73; O2SAT 90
--- NOTE | 2018-10-14 13:11 | PCM.DS ---
Discharge Summary Date of Admission: 10/14/18 03:26 Admitting Physician: KRUPA MAZA Consults: Consults on Case 10/14/18 03:26 Consult Pulmonology ROUTINE Primary Care Provider: KRUPA MAZA Allergies Allergies nicotine [From Nicoderm ] Allergy (Severe, Verified 07/29/18 11:04) Rash Hospital Summary - Hospital Course Hospital Course: Last Vital Signs Temp 97.6 F 10/14/18 12:00 Pulse 73 10/14/18 12:00 Resp 19 10/14/18 12:00 BP 107/55 10/14/18 12:00 Pulse Ox 90 L 10/14/18 12:00 [facility] Allergy (Severe, Verified 07/29/18 11:04) Rash Active Medications Albuterol Sulfate (Proventil Common Canister) 2 puff IH Q4HPRN PRN PRN Reason: SHORTNESS OF BREATH Stop: 11/13/18 06:59 Albuterol Sulfate (Proventil 2.5 Mg/3 Ml Neb) 2.5 mg IH QIDRT [facility] Stop: 11/13/18 09:59 Last Admin: 10/14/18 12:09 Dose: Not Given Alprazolam (Xanax 1 Mg) 1 mg PO BID [facility] Stop: 11/13/18 09:59 Last Admin: 10/14/18 10:13 Dose: 1 mg Artificial Tears (Artificial Tears 15 Ml) 0 ml OP DAILY [facility] Stop: 11/14/18 09:59 Aspirin (Ecotrin 81 Mg) 81 mg PO DAILY [facility] Stop: 11/14/18 09:59 Bumetanide (Bumex 1 Mg) 1 mg PO DAILY PRN PRN PRN Reason: SHORTNESS OF BREATH Stop: 11/13/18 09:57 Gabapentin (Neurontin 300 Mg) 300 mg PO TID [facility] Stop: 11/13/18 09:59 Last Admin: 10/14/18 10:13 Dose: 300 mg Hydrochlorothiazide (Hydrodiuril 25 Mg) 25 mg PO DAILY [facility] Stop: 11/13/18 09:59 Last Admin: 10/14/18 10:13 Dose: 25 mg Piperacillin Sod/Tazobactam Sod (Zosyn 3.375gm/100 Ml D5w) 3.375 gm in 100 mls @ 200 mls/hr IV Q6HT [facility] Stop: 11/13/18 05:59 Last Admin: 10/14/18 11:17 Dose: 200 mls/hr Insulin Human Regular (Novolin R) 0 unit SQ UD PRN PRN Reason: HYPERGLYCEMIA Stop: 11/13/18 03:25 Isosorbide Mononitrate (Imdur 30 Mg) 30 mg PO DAILY [facility] Stop: 11/13/18 09:59 Last Admin: 10/14/18 10:13 Dose: 30 mg Latanoprost (Xalatan) 0 ml OP HS [facility] Stop: 11/13/18 21:59 Lisinopril (Zestril 5 Mg) 2.5 mg PO DAILY [facility] Stop: 11/14/18 09:59 Metformin HCl (Glucophage 500 Mg) 500 mg PO BIDAC [facility] Stop: 11/13/18 09:59 Last Admin: 10/14/18 10:13 Dose: 500 mg Methylprednisolone Sodium Succinate (Solu-Medrol 125 Mg) 80 mg IV Q6HT [facility] Stop: 11/13/18 05:59 Last Admin: 10/14/18 11:17 Dose: 80 mg Metoprolol Tartrate (Lopressor 50 Mg) 50 mg PO BID [facility] Stop: 11/13/18 09:59 Last Admin: 10/14/18 10:13 Dose: 50 mg Nitroglycerin (Nitrostat 0.4 Mg Tablet) 0.4 mg SL Q5MIN PRN MR X 3 PRN PRN Reason: CHEST PAIN Stop: 11/13/18 09:57 Pantoprazole Sodium (Protonix 40mg Tablet) 40 mg PO BID [facility] Stop: 11/13/18 09:59 Last Admin: 10/14/18 10:14 Dose: 40 mg Pramipexole Dihydrochloride (Mirapex 0.5 Mg Tablet) 0.25 mg PO HS [facility] Stop: 11/13/18 21:59 Fluticasone/Salmeterol (Advair Hfa 230/21 Mcg Common Canister*) 2 puff IH BIDRT [facility] Stop: 11/13/18 06:59 Last Admin: 10/14/18 08:52 Dose: 2 puff Theophylline (Theophylline Er 24hr) 300 mg PO Q12HT [facility] Stop: 11/13/18 10:59 Last Admin: 10/14/18 11:23 Dose: 300 mg Tiotropium Savage (Spiriva 18 Mcg/Cap Inhaler) 1 ea IH DAILY [facility] Stop: 11/13/18 06:59 Last Admin: 10/14/18 10:14 Dose: Not Given Intake & Output 10/14/18 10/15/18 11:59 11:59 Intake Total 540 Output Total 1025 Balance -485 Weight 98.5 kg Orders 10/14/18 04:04 Respiratory Therapy Assessment DAILY 10/14/18 07:00 Albuterol Common Canister [Proventil Common Canister] 2 puff IH Q4HPRN PRN Fluticasone/Salmeterol 230/21 [Advair Hfa 230/21 Mcg COMMON CANISTER*] 2 puff IH BIDRT Tiotropium Savage Inhaler [Spiriva 18 Mcg/Cap Inhaler] 1 ea IH DAILY 10/14/18 08:57 Peak Expiratory Flow Rate ONCE 10/14/18 09:58 Bumetanide 1 mg [Bumex 1 mg] 1 mg PO DAILY PRN PRN Nitroglycerin 0.4 mg Tablet [Nitrostat 0.4 MG Tablet] 0.4 mg SL Q5MIN PRN MR X 3 PRN 10/14/18 10:00 Albuterol 2.5 mg/3 ml Neb [Proventil 2.5 mg/3 ml Neb] 2.5 mg IH QIDRT Alprazolam 1 mg [Xanax 1 mg] 1 mg PO BID Gabapentin 300 mg [Neurontin 300 mg] 300 mg PO TID Hydrochlorothiazide 25 mg [hydroDIURIL 25 MG] 25 mg PO DAILY Isosorbide Mononitrate 30 mg [Imdur 30 MG] 30 mg PO DAILY Metformin HCl 500 mg [Glucophage 500 MG] 500 mg PO BIDAC Metoprolol Tartrate 50 mg [Lopressor 50 MG] 50 mg PO BID PANTOPRAZOLE 40 mg Tablet [Protonix 40MG Tablet] 40 mg PO BID 10/14/18 11:00 Theophylline Anhydrous [Theophylline ER 24Hr] 300 mg PO Q12HT 10/14/18 22:00 Latanoprost [Xalatan] 0 ml OP HS Pramipexole Di-HCl 0.5 mg [Mirapex 0.5 MG Tablet] 0.25 mg PO HS 10/15/18 10:00 Aspirin EC 81 mg [Ecotrin 81 mg] 81 mg PO DAILY Lisinopril 5 mg [Zestril 5 MG] 2.5 mg PO DAILY Polyvinyl Alcohol Tears [Artificial Tears 15 ML] 0 ml OP DAILY Lab Tests 10/13/18 10/13/18 10/13/18 22:15 22:15 22:15 WBC 11.7 H RBC 4.96 Hgb 13.6 Hct 41.6 L MCV 83.9 MCH 27.4 MCHC 32.7 RDW 14.9 H Plt Count 331 MPV 9.2 Gran % 76.6 H Eos # (Auto) 0.19 Absolute Lymphs (auto) 1.52 Absolute Monos (auto) 0.99 Lymphocytes % 13.0 L Monocytes % 8.5 Eosinophils % 1.6 Basophils % 0.3 Absolute Granulocytes 8.97 H Basophils # 0.03 Sodium 131 L Potassium 4.1 Chloride 89 L Carbon Dioxide 32 H Anion Gap 13.6 BUN 12 Creatinine 0.65 L Estimated GFR > 60.0 Glucose 115 H Lactic Acid Calcium 9.4 Total Bilirubin 1.40 H AST 33 ALT 52 H Alkaline Phosphatase 57 Troponin I < 0.012 NT-Pro-B Natriuret Pep 363 Serum Total Protein 7.3 Albumin 4.2 Amylase 53 Lipase 96 Urine Color Urine Appearance Urine pH Ur Specific Reeder Urine Protein Urine Ketones Urine Blood Urine Nitrite Urine Bilirubin Urine Urobilinogen Ur Leukocyte Esterase Urine WBC (Auto) Urine RBC (Auto) U Epithel Cells (Auto) Urine Bacteria (Auto) Urine Culture Reflexed Urine Glucose Influenza Type A Ag Influenza Type B Ag RSV (PCR) 10/13/18 10/13/18 10/14/18 22:24 22:30 01:24 WBC RBC Hgb Hct MCV MCH MCHC RDW Plt Count MPV Gran % Eos # (Auto) Absolute Lymphs (auto) Absolute Monos (auto) Lymphocytes % Monocytes % Eosinophils % Basophils % Absolute Granulocytes Basophils # Sodium Potassium Chloride Carbon Dioxide Anion Gap BUN Creatinine Estimated GFR Glucose Lactic Acid 1.1 Calcium Total Bilirubin AST ALT Alkaline Phosphatase Troponin I NT-Pro-B Natriuret Pep Serum Total Protein Albumin Amylase Lipase Urine Color YELLOW Urine Appearance CLEAR Urine pH 7.0 Ur Specific Reeder 1.014 Urine Protein NEGATIVE Urine Ketones TRACE Urine Blood NEGATIVE Urine Nitrite NEGATIVE Urine Bilirubin NEGATIVE Urine Urobilinogen 4 Ur Leukocyte Esterase NEGATIVE Urine WBC (Auto) NONE Urine RBC (Auto) NONE U Epithel Cells (Auto) NONE Urine Bacteria (Auto) NONE Urine Culture Reflexed NO Urine Glucose NEGATIVE Influenza Type A Ag NEGATIVE Influenza Type B Ag NEGATIVE RSV (PCR) NEGATIVE 10/14/18 10/14/18 10/14/18 01:45 05:00 05:00 WBC 9.9 RBC 5.02 Hgb 14.0 Hct 42.5 MCV 84.7 MCH 27.9 MCHC 32.9 RDW 14.8 H Plt Count 332 MPV 9.9 H Gran % Eos # (Auto) Absolute Lymphs (auto) Absolute Monos (auto) Lymphocytes % Monocytes % Eosinophils % Basophils % Absolute Granulocytes Basophils # Sodium Potassium Chloride Carbon Dioxide Anion Gap BUN Creatinine Estimated GFR Glucose Lactic Acid Calcium Total Bilirubin AST ALT Alkaline Phosphatase Troponin I < 0.012 < 0.012 NT-Pro-B Natriuret Pep Serum Total Protein Albumin Amylase Lipase Urine Color Urine Appearance Urine pH Ur Specific Reeder Urine Protein Urine Ketones Urine Blood Urine Nitrite Urine Bilirubin Urine Urobilinogen Ur Leukocyte Esterase Urine WBC (Auto) Urine RBC (Auto) U Epithel Cells (Auto) Urine Bacteria (Auto) Urine Culture Reflexed Urine Glucose Influenza Type A Ag Influenza Type B Ag RSV (PCR) 10/14/18 10/14/18 10/14/18 05:00 07:20 10:25 WBC RBC Hgb Hct MCV MCH MCHC RDW Plt Count MPV Gran % Eos # (Auto) Absolute Lymphs (auto) Absolute Monos (auto) Lymphocytes % Monocytes % Eosinophils % Basophils % Absolute Granulocytes Basophils # Sodium 133 L Potassium 4.2 Chloride 91 L Carbon Dioxide 32 H Anion Gap 14.5 BUN 10 Creatinine 0.71 Estimated GFR > 60.0 Glucose 154 H Lactic Acid Calcium 9.2 Total Bilirubin 1.00 AST 31 ALT 50 Alkaline Phosphatase 54 Troponin I < 0.012 < 0.012 NT-Pro-B Natriuret Pep Serum Total Protein 7.2 Albumin 4.1 Amylase Lipase Urine Color Urine Appearance Urine pH Ur Specific Reeder Urine Protein Urine Ketones Urine Blood Urine Nitrite Urine Bilirubin Urine Urobilinogen Ur Leukocyte Esterase Urine WBC (Auto) Urine RBC (Auto) U Epithel Cells (Auto) Urine Bacteria (Auto) Urine Culture Reflexed Urine Glucose Influenza Type A Ag Influenza Type B Ag RSV (PCR) - Vitals & Intake/Output Vital Signs: Vital Signs Temperature 97.6 F 10/14/18 12:00 Pulse Rate 73 10/14/18 12:00 Respiratory Rate 19 10/14/18 12:00 Blood Pressure 107/55 10/14/18 12:00 O2 Sat by Pulse Oximetry 90 L 10/14/18 12:00 Oxygen-Last Documented O2 Percentage 6 Liters = 44% Intake & Output: Intake & Output 10/12/18 10/13/18 10/14/18 10/15/18 11:59 11:59 11:59 11:59 Intake Total 540 Output Total 1025 Balance -485 Weight 98.5 kg - Lab Result Diagrams: 10/14/18 05:00 10/14/18 05:00 Lab Results-Last 24 Hrs: Accuchecks Date 10/14/18 Date 10/14/18 Time 11:51 Time 08:00 Accucheck Value: 145 Accucheck Value: 146 Lab Results-Last 24 Hours 10/13/18 10/13/18 10/13/18 Range/Units 22:15 22:15 22:15 WBC 11.7 H (4.0-10.5) K/mm3 RBC 4.96 (4.1-5.6) M/mm3 Hgb 13.6 (12.5-18.0) gm/dl Hct 41.6 L (42-50) % MCV 83.9 (78-100) fl MCH 27.4 (26-32) pg MCHC 32.7 (32-36) g/dl RDW 14.9 H (11.5-14.0) % Plt Count 331 (150-450) K/mm3 MPV 9.2 (6-9.5) fl Gran % 76.6 H (36.0-66.0) % Eos # (Auto) 0.19 (0-0.5) Absolute Lymphs (auto) 1.52 (1.0-4.6) Absolute Monos (auto) 0.99 (0.0-1.3) Lymphocytes % 13.0 L (24.0-44.0) % Monocytes % 8.5 (0.0-12.0) % Eosinophils % 1.6 (0.00-5.0) % Basophils % 0.3 (0.0-0.4) % Absolute Granulocytes 8.97 H (1.4-6.9) Basophils # 0.03 (0-0.4) Sodium 131 L (137-145) mmol/L Potassium 4.1 (3.5-5.1) mmol/L Chloride 89 L (98-107) mmol/L Carbon Dioxide 32 H (22-30) mmol/L Anion Gap 13.6 (5-15) MEQ/L BUN 12 (9-20) mg/dL Creatinine 0.65 L (0.66-1.25) mg/dL Estimated GFR > 60.0 ML/MIN Glucose 115 H (74-106) mg/dL Lactic Acid (0.4-2.0) Calcium 9.4 (8.4-10.2) mg/dL Total Bilirubin 1.40 H (0.2-1.3) mg/dL AST 33 (17-59) U/L ALT 52 H (0-50) U/L Alkaline Phosphatase 57 (38-126) U/L Troponin I < 0.012 (0.000-0.034) ng/mL NT-Pro-B Natriuret Pep 363 (0-900) pg/mL Serum Total Protein 7.3 (6.3-8.2) g/dL Albumin 4.2 (3.5-5.0) g/dL Amylase 53 (30-110) U/L Lipase 96 (23-300) U/L Urine Color (YELLOW) Urine Appearance (CLEAR) Urine pH (5-6) Ur Specific Reeder (1.005-1.025) Urine Protein (Negative) Urine Ketones (NEGATIVE) Urine Blood (0-5) Johan/ul Urine Nitrite (NEGATIVE) Urine Bilirubin (NEGATIVE) Urine Urobilinogen (0-1) mg/dL Ur Leukocyte Esterase (NEGATIVE) Urine WBC (Auto) (0-5) /HPF Urine RBC (Auto) (0-2) /HPF U Epithel Cells (Auto) (FEW) /HPF Urine Bacteria (Auto) (NEGATIVE) /HPF Urine Culture Reflexed (NO) Urine Glucose (NEGATIVE) mg/dL Influenza Type A Ag (NEGATIVE) Influenza Type B Ag (NEGATIVE) RSV (PCR) (Negative) 10/13/18 10/13/18 10/14/18 Range/Units 22:24 22:30 01:24 WBC (4.0-10.5) K/mm3 RBC (4.1-5.6) M/mm3 Hgb (12.5-18.0) gm/dl Hct (42-50) % MCV (78-100) fl MCH (26-32) pg MCHC (32-36) g/dl RDW (11.5-14.0) % Plt Count (150-450) K/mm3 MPV (6-9.5) fl Gran % (36.0-66.0) % Eos # (Auto) (0-0.5) Absolute Lymphs (auto) (1.0-4.6) Absolute Monos (auto) (0.0-1.3) Lymphocytes % (24.0-44.0) % Monocytes % (0.0-12.0) % Eosinophils % (0.00-5.0) % Basophils % (0.0-0.4) % Absolute Granulocytes (1.4-6.9) Basophils # (0-0.4) Sodium (137-145) mmol/L Potassium (3.5-5.1) mmol/L Chloride (98-107) mmol/L Carbon Dioxide (22-30) mmol/L Anion Gap (5-15) MEQ/L BUN (9-20) mg/dL Creatinine (0.66-1.25) mg/dL Estimated GFR ML/MIN Glucose (74-106) mg/dL Lactic Acid 1.1 (0.4-2.0) Calcium (8.4-10.2) mg/dL Total Bilirubin (0.2-1.3) mg/dL AST (17-59) U/L ALT (0-50) U/L Alkaline Phosphatase (38-126) U/L Troponin I (0.000-0.034) ng/mL NT-Pro-B Natriuret Pep (0-900) pg/mL Serum Total Protein (6.3-8.2) g/dL Albumin (3.5-5.0) g/dL Amylase (30-110) U/L Lipase (23-300) U/L Urine Color YELLOW (YELLOW) Urine Appearance CLEAR (CLEAR) Urine pH 7.0 (5-6) Ur Specific Reeder 1.014 (1.005-1.025) Urine Protein NEGATIVE (Negative) Urine Ketones TRACE (NEGATIVE) Urine Blood NEGATIVE (0-5) Johan/ul Urine Nitrite NEGATIVE (NEGATIVE) Urine Bilirubin NEGATIVE (NEGATIVE) Urine Urobilinogen 4 (0-1) mg/dL Ur Leukocyte Esterase NEGATIVE (NEGATIVE) Urine WBC (Auto) NONE (0-5) /HPF Urine RBC (Auto) NONE (0-2) /HPF U Epithel Cells (Auto) NONE (FEW) /HPF Urine Bacteria (Auto) NONE (NEGATIVE) /HPF Urine Culture Reflexed NO (NO) Urine Glucose NEGATIVE (NEGATIVE) mg/dL Influenza Type A Ag NEGATIVE (NEGATIVE) Influenza Type B Ag NEGATIVE (NEGATIVE) RSV (PCR) NEGATIVE (Negative) 10/14/18 10/14/18 10/14/18 Range/Units 01:45 05:00 05:00 WBC 9.9 (4.0-10.5) K/mm3 RBC 5.02 (4.1-5.6) M/mm3 Hgb 14.0 (12.5-18.0) gm/dl Hct 42.5 (42-50) % MCV 84.7 (78-100) fl MCH 27.9 (26-32) pg MCHC 32.9 (32-36) g/dl RDW 14.8 H (11.5-14.0) % Plt Count 332 (150-450) K/mm3 MPV 9.9 H (6-9.5) fl Gran % (36.0-66.0) % Eos # (Auto) (0-0.5) Absolute Lymphs (auto) (1.0-4.6) Absolute Monos (auto) (0.0-1.3) Lymphocytes % (24.0-44.0) % Monocytes % (0.0-12.0) % Eosinophils % (0.00-5.0) % Basophils % (0.0-0.4) % Absolute Granulocytes (1.4-6.9) Basophils # (0-0.4) Sodium (137-145) mmol/L Potassium (3.5-5.1) mmol/L Chloride (98-107) mmol/L Carbon Dioxide (22-30) mmol/L Anion Gap (5-15) MEQ/L BUN (9-20) mg/dL Creatinine (0.66-1.25) mg/dL Estimated GFR ML/MIN Glucose (74-106) mg/dL Lactic Acid (0.4-2.0) Calcium (8.4-10.2) mg/dL Total Bilirubin (0.2-1.3) mg/dL AST (17-59) U/L ALT (0-50) U/L Alkaline Phosphatase (38-126) U/L Troponin I < 0.012 < 0.012 (0.000-0.034) ng/mL NT-Pro-B Natriuret Pep (0-900) pg/mL Serum Total Protein (6.3-8.2) g/dL Albumin (3.5-5.0) g/dL Amylase (30-110) U/L Lipase (23-300) U/L Urine Color (YELLOW) Urine Appearance (CLEAR) Urine pH (5-6) Ur Specific Reeder (1.005-1.025) Urine Protein (Negative) Urine Ketones (NEGATIVE) Urine Blood (0-5) Johan/ul Urine Nitrite (NEGATIVE) Urine Bilirubin (NEGATIVE) Urine Urobilinogen (0-1) mg/dL Ur Leukocyte Esterase (NEGATIVE) Urine WBC (Auto) (0-5) /HPF Urine RBC (Auto) (0-2) /HPF U Epithel Cells (Auto) (FEW) /HPF Urine Bacteria (Auto) (NEGATIVE) /HPF Urine Culture Reflexed (NO) Urine Glucose (NEGATIVE) mg/dL Influenza Type A Ag (NEGATIVE) Influenza Type B Ag (NEGATIVE) RSV (PCR) (Negative) 10/14/18 10/14/18 10/14/18 Range/Units 05:00 07:20 10:25 WBC (4.0-10.5) K/mm3 RBC (4.1-5.6) M/mm3 Hgb (12.5-18.0) gm/dl Hct (42-50) % MCV (78-100) fl MCH (26-32) pg MCHC (32-36) g/dl RDW (11.5-14.0) % Plt Count (150-450) K/mm3 MPV (6-9.5) fl Gran % (36.0-66.0) % Eos # (Auto) (0-0.5) Absolute Lymphs (auto) (1.0-4.6) Absolute Monos (auto) (0.0-1.3) Lymphocytes % (24.0-44.0) % Monocytes % (0.0-12.0) % Eosinophils % (0.00-5.0) % Basophils % (0.0-0.4) % Absolute Granulocytes (1.4-6.9) Basophils # (0-0.4) Sodium 133 L (137-145) mmol/L Potassium 4.2 (3.5-5.1) mmol/L Chloride 91 L (98-107) mmol/L Carbon Dioxide 32 H (22-30) mmol/L Anion Gap 14.5 (5-15) MEQ/L BUN 10 (9-20) mg/dL Creatinine 0.71 (0.66-1.25) mg/dL Estimated GFR > 60.0 ML/MIN Glucose 154 H (74-106) mg/dL Lactic Acid (0.4-2.0) Calcium 9.2 (8.4-10.2) mg/dL Total Bilirubin 1.00 (0.2-1.3) mg/dL AST 31 (17-59) U/L ALT 50 (0-50) U/L Alkaline Phosphatase 54 (38-126) U/L Troponin I < 0.012 < 0.012 (0.000-0.034) ng/mL NT-Pro-B Natriuret Pep (0-900) pg/mL Serum Total Protein 7.2 (6.3-8.2) g/dL Albumin 4.1 (3.5-5.0) g/dL Amylase (30-110) U/L Lipase (23-300) U/L Urine Color (YELLOW) Urine Appearance (CLEAR) Urine pH (5-6) Ur Specific Reeder (1.005-1.025) Urine Protein (Negative) Urine Ketones (NEGATIVE) Urine Blood (0-5) Johan/ul Urine Nitrite (NEGATIVE) Urine Bilirubin (NEGATIVE) Urine Urobilinogen (0-1) mg/dL Ur Leukocyte Esterase (NEGATIVE) Urine WBC (Auto) (0-5) /HPF Urine RBC (Auto) (0-2) /HPF U Epithel Cells (Auto) (FEW) /HPF Urine Bacteria (Auto) (NEGATIVE) /HPF Urine Culture Reflexed (NO) Urine Glucose (NEGATIVE) mg/dL Influenza Type A Ag (NEGATIVE) Influenza Type B Ag (NEGATIVE) RSV (PCR) (Negative) Micro Results-Entire Visit: Accuchecks Date 10/14/18 Date 10/14/18 Time 11:51 Time 08:00 Accucheck Value: 145 Accucheck Value: 146 - Radiology Exams Ordered Rad Exams-Entire Visit: Radiology Procedures Category Date Time Status ABDOMEN AND PELVIS W/0 CONTRAS [CT] Stat Exams 10/13/18 22:16 Completed CHEST 2 VIEWS (PA AND LAT) Routine Exams 10/15/18 08:00 Ordered CHEST 2 VIEWS (PA AND LAT) Stat Exams 10/13/18 22:16 Completed - Procedures and Test Procedures and Tests throughout Hospitalization: Therapy Orders & Screens 10/13/18 22:18 Respiratory Nebulizer STAT Comment: Diagnosis: Shortness of Breath 10/13/18 22:37 Respiratory Therapy Assessment DAILY Comment: Diagnosis: Shortness of Breath 10/14/18 03:26 Oxygen Oxymask LPM 6% Comment: Diagnosis: Shortness of Breath Respiratory Nebulizer Q4H Comment: Diagnosis: Shortness of Breath Respiratory Therapy Consult ROUTINE Comment: Reason For Exam: Diagnosis: Shortness of Breath 10/14/18 04:04 Respiratory Therapy Assessment DAILY Comment: Diagnosis: Shortness of Breath 10/14/18 04:23 RT Screen per Nursing Assess ONCE Comment: Protocol Order Physician Instructions: Greater than 3 points order RT Admission Screen Reason For Exam: Triggered on Admission Diagnosis: COPD exacerbation Diagnosis: COPD exacerbation Pneumonia: No Home O2: Yes Asthma: No CHF: No Home CPAP/BIPAP: Yes Home Nebs/MDI: Yes Total Points: 15 10/14/18 08:57 Peak Expiratory Flow Rate ONCE Comment: Reason For Exam: Diagnosis: COPD exacerbation Discharge Exam General Appearance: no apparent distress, alert Neurologic Exam: alert, oriented x 3, cooperative, normal mood/affect, nml cerebellar function, sensation nml, No motor deficits Skin Exam: normal color, warm, dry Eye Exam: PERRL, EOMI, eyes nml inspection Ears, Nose, Throat Exam: normal ENT inspection, pharynx normal, moist mucous membranes Neck Exam: normal inspection, non-tender, supple, full range of motion Respiratory Exam: normal breath sounds, lungs clear, No respiratory distress Cardiovascular Exam: regular rate/rhythm, normal heart sounds Gastrointestinal/Abdomen Exam: soft, No tenderness, No mass Extremity Exam: normal inspection, normal range of motion Back Exam: normal inspection, normal range of motion, No CVA tenderness, No vertebral tenderness Male Genitalia Exam: deferred Rectal Exam: deferred Final Diagnosis/Problem List - Final Discharge Diagnosis/Problem (1) Acute exacerbation of chronic obstructive airways disease Current Visit: Yes Status: Acute Onset Date: ~07/29/18 Assessment & Plan: resolved (2) CAD (coronary artery disease) Current Visit: Yes Status: Acute (3) GERD (gastroesophageal reflux disease) Current Visit: No Status: Chronic (4) HTN (hypertension) Current Visit: No Status: Chronic - Discharge Discharge Date: 10/14/18 Disposition: Home, Self-Care Condition: Stable Prescriptions: New Albuterol Common Canister [Proventil Common Canister] 2 puff IH Q4HPRN PRN puff PRN Reason: Shortness Of Breath Fluticasone/Salmeterol 230/21 [Advair Hfa 230/21 Mcg COMMON CANISTER*] 2 puff IH BIDRT aer.w.adap Methylprednisolone Packet [Medrol Dosepack] 4 mg PO UD #30 packet Cephalexin Mh 500 mg [Keflex 500 mg] 500 mg PO QID #20 capsule Continue Omeprazole 20 MG [Prilosec 20 mg] 40 mg PO BID Hydrochlorothiazide 25 mg [hydroDIURIL 25 MG] 25 mg PO DAILY Albuterol 2.5 mg/3 ml Neb [Proventil 2.5 mg/3 ml Neb] 2.5 mg IH QID Tiotropium Savage Inhaler [Spiriva 18 Mcg/Cap Inhaler] 2 ea IH DAILY Aspirin 81 mg PO DAILY Metformin HCl 500 mg [Glucophage 500 MG] 500 mg PO BIDAC Nitroglycerin 0.4 mg Tablet [Nitrostat 0.4 MG Tablet] 0.4 mg SL Q5MIN PRN MR X 3 PRN PRN Reason: Chest Pain Albuterol 8 gm Mdi Hfa [Ventolin Hfa MDI] 2 puff IH Q6HPRN PRN PRN Reason: Shortness Of Breath Bumetanide 1 mg [Bumex 1 mg] 1 mg PO DAILY PRN PRN PRN Reason: Shortness Of Breath Isosorbide Mononitrate [Isosorbide Mononitrate ER] 30 mg PO DAILY Metoprolol Tartrate 50 mg PO BID Lisinopril [Zestril] 2.5 mg PO DAILY Latanoprost 1 drop OP HS Gabapentin [Neurontin] 300 mg PO TID Alprazolam 1 mg [Xanax 1 mg] 1 mg PO BID Theophylline Anhydrous 300 mg PO Q12H Budesonide/Formoterol Fumarate [Symbicort 80-4.5 Mcg Inhaler] 2 puffs IH BID Pramipexole Di-HCl [Pramipexole Dihydrochloride] 0.25 mg PO QHS Dextran 70/Hypromellose [Artificial Tears Drops] 15 ml OP DAILY Instructions: Exacerbation of COPD (DC) Follow up with: ANGÉLICA STEIN [CONSULTING PHYSICIAN] - 10/29/18 12:00 pm ([facility] OFFICE) KRUPA MAZA MD [Primary Care Provider] - 10/21/18 1:45 am ([facility] OFFICE )
[2018-10-14] MEDS ORDERED: NON-FORMULARY ITEM (Pramipexole Di-Hcl [Pramipexole Dihydrochloride] 0.25 MG) PO SCH (22:00)
[2018-10-14] MEDS ORDERED: Mirapex 0.5 MG Tablet PO SCH (22:00)
[2018-10-14] MEDS ORDERED: Xalatan OP SCH ×2 (22:00)
[2018-10-15] MEDS ORDERED: Artificial Tears 15 ML OP SCH (10:00)
[2018-10-15] MEDS ORDERED: Zestril 5 MG PO SCH (10:00)
[2018-10-15] MEDS ORDERED: ECOTRIN 81 MG PO SCH (10:00)
== END 2018-10-14 13:25 | disposition home or self-care (01) ==
LOC: ED 21:11 → MED SURG 10-14 03:26
PROVIDERS: ADMIT General Practice; ATTEND General Practice
DX: J44.1 Chronic obstructive pulmonary disease with (acute) exacerbation (principal); I25.10 Atherosclerotic heart disease of native coronary artery without angina pectoris; I10 Essential (primary) hypertension; K21.9 Gastro-esophageal reflux disease without esophagitis; Z79.899 Other long term (current) drug therapy
CPT/HCPCS: 36000; 36415; 71046; 74176; 80053; 81001; 82150; 82962; 83605; 83690; 83880; 84484; 85025; 85027; 87631; 93005; 93041; 93268; 94150; 94640; 94762; 96360; 96365; 96367; 96374; 96375; 99285; J0696; J2405; J2543; J2930; J7609; A9270-GY; G0378

== ENCOUNTER 2020-06-01 14:04 | Observation (INO) | payer MEDICARE ==
[2020-06-01] MEDS ORDERED: BABY ASPIRIN 81 MG CHEW PO ONE (14:25)
[2020-06-01] MEDS ORDERED: Zofran 4 MG/2 ML VIAL IV ONE (14:27)
[2020-06-01] MEDS ORDERED: solu-MEDROL 125 MG IV ONE (14:27)
[2020-06-01] MEDS ORDERED: DUONEB 0.5-3 MG/3 ml Neb IH ONE ×2 (14:27→15:23)
[2020-06-01] MEDS ORDERED: solu-MEDROL 125 MG ONE (14:35)
[2020-06-01] MEDS ORDERED: Zofran 4 MG/2 ML VIAL ONE (14:35)
[2020-06-01 14:46] LABS: ALBUMIN 4.3 g/dL (3.5-5.0); ALKALINE PHOSPHATASE 55 U/L (38-126); ANION GAP 11.3 MEQ/L (5-15); BLOOD UREA NITROGEN 11 mg/dL (9-20); CHLORIDE 94 mmol/L (98-107); Calcium 9.3 mg/dL (8.4-10.2); Carbon Dioxide 32 mmol/L (22-30); Creatinine 1 0.59 mg/dL (0.66-1.25); EST GLOMERULAR FILTRATION RATE > 60.0 ML/MIN; Glucose 110 mg/dL (74-106); LIPASE 112 U/L (23-300); Potassium 3.9 mmol/L (3.5-5.1); SGOT/AST 24 U/L (17-59); SGPT/ALT 18 U/L (0-50); SODIUM 133 mmol/L (137-145); Total Protein 7.3 g/dL (6.3-8.2)
[2020-06-01 14:50] LABS: Absolute Neutrophil Ct (ANC) 11.23 (1.4-6.9); BASOPHIL % 0.2 % (0.0-0.4); Basophil (Absolute #) 0.02 (0-0.4); Eosinophil % 0.5 % (0.00-5.0); Eosinophil (Absolute #) 0.07 (0-0.5); Hematocrit 42.2 % (42-50); Hemoglobin 13.4 gm/dl (12.5-18.0); Lymphocyte (Absolute #) 0.92 (1.0-4.6); Mean Cell Volume 81.9 fl (78-100); Mean Corpuscular Hgb Concent. 31.8 g/dl (32-36); Mean Platelet Volume 9.7 fl (7.5-11.0); Monocyte (Absolute #) 0.81 (0.0-1.3); Monocytes % 6.2 % (0.0-12.0); Neutrophil % 86.1 % (36.0-66.0); Platelet Count 202 K/mm3 (150-450); Red Blood Count 5.15 M/mm3 (4.1-5.6); Red Cell Distribution Width 16.8 % (11.5-14.0); White Blood Count 13.1 K/mm3 (4.0-10.5)
--- NOTE | 2020-06-01 15:25 | XRAY ---
Indication: Short of breath. COPD. Comparison: May 09, 2020. PA/lateral chest unchanged again demonstrating COPD, chronic lung markings, left infrahilar calcified granuloma, and left lung suture material. Heart is not enlarged. No new/acute findings.
[2020-06-01] MEDS ORDERED: ROCEPHIN 1 Gm-D5w 50 ml Bag** 1 G/50 ML IVPB IV STA (15:27)
[2020-06-01 15:40] LABS: VBG BASE EXCESS 7.6 (-2.0-2.0); VBG CARBOXYHEMOGLOBIN 4.5 % T HGB (0.0-6.9); VBG HCO3- 34.5 meq/L (22-28); VBG HEMOGLOBIN 13.8; VBG O2 SATURATION 83.9 (95-100); VBG POTASSIUM 4.2 (3.5-5.1); VBG pH 7.39 (7.32-7.42)
[2020-06-01 16:07] LABS: INFLUENZA A NEGATIVE (NEGATIVE); INFLUENZA B NEGATIVE (NEGATIVE); RESPIRATORY SYNCTIAL VIRUS NEGATIVE (Negative)
[2020-06-01] MEDS ORDERED: ROCEPHIN 1 Gm-D5w 50 ml Bag** 1 G/50 ML IVPB IV ONE (16:11)
--- NOTE | 2020-06-01 16:38 | ERPHSYRPT ---
- History of Present Illness Time Seen by Provider: 06/01/20 14:06 Source: patient Exam Limitations: no limitations Patient Subjective Stated Complaint: PT states "I have been short of breath on and off for awhile, I got off antibiotics a week ago and ever since I have been going down hill. I have COPD." Triage Nursing Assessment: Pt presented alert and orietned X 3, skin pwd. pt ambulates with an upright slow gait, able to speak in clear full sentences, pt has raspy voice, diminished breath sounds bilat lower lobes. pt tachypneic. PT placed on NRB at 15 lpm upon arrival due to low SpO2, pt at 99 Physician History: Cough, fever, chills. COPD exacerbation. Has been going on for 2 to 3 days. Recently treated with antibiotics 1 week ago. No falls no trauma. Patient has no known Covid infections or exposures. Timing/Duration: day(s) (2-3 days) Severity: moderate Modifying Factors: Improves With: movement, ibuprofen, other (home O2) Associated Symptoms: shortness of breath Allergies/Adverse Reactions: nicotine [From [employer]] Allergy (Severe, Verified 07/29/18 11:04) Rash Home Medications: Albuterol 2.5 mg/3 ml Neb [Proventil 2.5 mg/3 ml Neb] 2.5 mg IH QID 02/04/14 [History] Aspirin 81 mg PO DAILY 02/04/14 [History] Hydrochlorothiazide 25 mg [hydroDIURIL 25 MG] 25 mg PO DAILY 02/04/14 [History] Metformin HCl 500 mg [Glucophage 500 MG] 500 mg PO BIDAC 02/04/14 [History] Omeprazole 20 MG [Prilosec 20 mg] 40 mg PO BID 02/04/14 [History] Tiotropium [place] Inhaler [Spiriva 18 Mcg/Cap Inhaler] 2 ea IH DAILY 02/04/14 [History] Albuterol 8 gm Mdi Hfa [Ventolin Hfa MDI] 2 puff IH Q6HPRN PRN 08/01/16 [History] Bumetanide 1 mg [Bumex 1 mg] 1 mg PO DAILY PRN PRN 08/01/16 [History] Nitroglycerin 0.4 mg Tablet [Nitrostat 0.4 MG Tablet] 0.4 mg SL Q5MIN PRN MR X 3 PRN 08/01/16 [History] Isosorbide Mononitrate [Isosorbide Mononitrate ER] 30 mg PO DAILY 07/29/18 [History] Latanoprost 1 drop OP HS 07/29/18 [History] Metoprolol Tartrate 50 mg PO BID 07/29/18 [History] lisinopriL [Zestril] 2.5 mg PO DAILY 07/29/18 [History] Alprazolam 1 mg [Xanax 1 mg] 1 mg PO BID 10/14/18 [History] Budesonide/Formoterol Fumarate [Symbicort 80-4.5 Mcg Inhaler] 2 puffs IH BID 10/14/18 [History] Dextran 70/Hypromellose [Artificial Tears Drops] 15 ml OP DAILY 10/14/18 [History] Gabapentin [Neurontin] 300 mg PO TID 10/14/18 [History] Pramipexole Di-HCl [Pramipexole Dihydrochloride] 0.25 mg PO QHS 10/14/18 [ History] Theophylline Anhydrous 300 mg PO Q12H 10/14/18 [History] Hx Tetanus, Diphtheria Vaccination/Date Given: No Hx Influenza Vaccination/Date Given: Yes Hx Pneumococcal Vaccination/Date Given: Yes Immunizations Up to Date: Yes Travel Risk - International Travel Have you traveled outside of the country in past 3 weeks: No - Coronavirus Screening Are you exhibiting any of the following symptoms?: Yes Symptoms: Cough: New Onset, Shortness of Breath Close contact with a COVID-19 positive Pt in past 14-21 Days: No - Review of Systems Constitutional: No Fever, No Chills Eyes: No Symptoms Ears, Nose, & Throat: No Symptoms Respiratory: Cough, Dyspnea, Wheezing Cardiac: No Chest Pain, No Edema, No Syncope Abdominal/Gastrointestinal: No Abdominal Pain, No Nausea, No Vomiting, No Diarrhea Genitourinary Symptoms: No Dysuria Musculoskeletal: No Back Pain, No Neck Pain Skin: No Rash Neurological: No Dizziness, No Focal Weakness, No Sensory Changes Psychological: No Symptoms Endocrine: No Symptoms All Other Systems: Reviewed and Negative - Past Medical History Pertinent Past Medical History: Yes Neurological History: No Pertinent History ENT History: No Pertinent History Cardiac History: Aneurysm, Hypertension Respiratory History: COPD, Sleep Apnea Endocrine Medical History: Diabetes Type II Musculoskeletal History: No Pertinent History GI Medical History: No Pertinent History, GERD History: No Pertinent History Psycho-Social History: Anxiety Male Reproductive Disorders: No Pertinent History Other Medical History: 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 Pt also states he had an increase of SOB and chest pain that he has seen Dr. Mallory for and he has been put on nitro. PT wears 2 L of oxygen at night and when he is resting during the day. - Past Surgical History Past Surgical History: Yes Neuro Surgical History: No Pertinent History Cardiac: No Pertinent History Respiratory: Other Gastrointestinal: Hernia Repair Genitourinary: No Pertinent History Musculoskeletal: Orthopedic Surgery Male Surgical History: Vasectomy Other Surgical History: BACK SURGERY, and ear surgery and a left lung biopsy. 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 - Social History Smoking Status: Former smoker How long have you smoked: 40 + Exposure to second hand smoke: No Drug Use: none Patient Lives Alone: No - Nursing Vital Signs Nursing Vital Signs: Initial Vital Signs Temperature 98.4 F 06/01/20 14:06 Pulse Rate 121 H 06/01/20 14:06 Respiratory Rate 30 H 06/01/20 14:06 Blood Pressure 172/104 06/01/20 14:06 O2 Sat by Pulse Oximetry 88 L 06/01/20 14:06 Pain Scale Pain Intensity 0 - Physical Exam General Appearance: no apparent distress, alert Eye Exam: PERRL/EOMI, eyes nml inspection Ears, Nose, Throat Exam: normal ENT inspection, TMs normal, pharynx normal, moist mucous membranes Neck Exam: normal inspection, non-tender, supple, full range of motion Respiratory Exam: normal breath sounds, lungs clear, wheezing, other (End expiratory wheezes on physical exam tachypnea. Satting around 88 to 90% on his normal 4 L.), No respiratory distress Cardiovascular Exam: regular rate/rhythm, normal heart sounds, normal peripheral pulses Gastrointestinal/Abdomen Exam: soft, normal bowel sounds, No tenderness, No mass Back Exam: normal inspection, normal range of motion, No CVA tenderness, No vertebral tenderness Extremity Exam: normal inspection, normal range of motion, pelvis stable Neurologic Exam: alert, oriented x 3, cooperative, normal mood/affect, nml cerebellar function, nml station & gait, sensation nml, No motor deficits Skin Exam: normal color, warm, dry, No rash Lymphatic Exam: No adenopathy SpO2: 87 - Course Nursing assessment & vital signs reviewed: Yes EKG Interpreted by Me: Sinus Rhythm Ordered Tests: Active Orders 24 hr Category Date Time Status Clinical Pathologist STAT Care 06/01/20 14:27 Active Code Status Order ROUTINE Care 06/01/20 16:39 Active EKG-ER Only STAT Care 06/01/20 14:25 Active IV Care Q6H Care 06/01/20 16:39 Active IV Insertion STAT Care 06/01/20 14:[address] in Observation ROUTINE Care 06/01/20 16:39 Active Heart-Healthy Diet Diet 06/01/20 Breakfast Active CHEST 2 VIEWS (PA AND LAT) Stat Exams 06/01/20 14:26 Completed BLOOD CULTURE Stat Lab 06/01/20 15:15 Received CBC W DIFF AM.LAB Lab 06/02/20 04:00 Ordered CBC W DIFF Stat Lab 06/01/20 14:20 Completed CMP AM.LAB Lab 06/02/20 04:00 Ordered CMP Stat Lab 06/01/20 14:20 Completed CULTURE,SPUTUM Stat Lab 06/01/20 14:45 Received LIPASE Stat Lab 06/01/20 14:20 Completed TROPONIN Q3H Lab 06/01/20 14:20 Completed TROPONIN Q3H Lab 06/01/20 17:30 Ordered TROPONIN Q3H Lab 06/01/20 20:30 Ordered TROPONIN Q3H Lab 06/01/20 23:30 Ordered TROPONIN Q3H Lab 06/02/20 02:30 Ordered VENOUS BLOOD GAS Urgent Lab 06/01/20 15:30 Completed Respiratory Therapy Assessment ONCE RT 06/01/20 15:34 Active Respiratory Therapy Consult ROUTINE RT 06/01/20 16:39 Active Medication Summary Generic Name Dose Route Start Last Admin Trade Name Freq PRN Reason Stop Dose Admin Albuterol/Ipratropium 3 ml 06/01/20 16:39 Duoneb 0.5-3 Mg/3 Ml Neb IH 07/01/20 16:38 Q4HPRN PRN SHORTNESS OF BREATH/WHEEZING Ketorolac Tromethamine 30 mg 06/01/20 16:39 Toradol 30 Mg Injection IV 06/06/20 16:38 Q6H PRN PRN PAIN Methylprednisolone Sodium Succinate 80 mg 06/01/20 17:00 Solu-Medrol 125 Mg IV 07/01/20 16:59 Q6H FAHEEM Ondansetron HCl 4 mg 06/01/20 16:39 Zofran 4 Mg/2 Ml Vial IV 07/01/20 16:38 Q6H PRN PRN NAUSEA/VOMITING Discontinued Medications Generic Name Dose Route Start Last Admin Trade Name Freq PRN Reason Stop Dose Admin Albuterol/Ipratropium 3 ml 06/01/20 14:27 06/01/20 15:32 Duoneb 0.5-3 Mg/3 Ml Neb IH 06/01/20 14:28 3 ml STAT ONE Administration Albuterol/Ipratropium Confirm 06/01/20 15:23 Duoneb 0.5-3 Mg/3 Ml Neb Administered 06/01/20 15:24 Dose 3 ml IH .STK-MED ONE Aspirin 324 mg 06/01/20 14:25 06/01/20 14:31 Baby Aspirin 81 Mg Chew PO 06/01/20 14:26 324 mg STAT ONE Administration Ceftriaxone Sodium/Dextrose 1 g in 50 mls @ 100 mls/hr 06/01/20 15:27 06/01/20 16:45 Rocephin 1 Gm-D5w 50 Ml Bag IV 06/01/20 15:56 Infused STAT STA Infusion Ceftriaxone Sodium/Dextrose Confirm 06/01/20 16:11 Rocephin 1 Gm-D5w 50 Ml Bag Administered 06/01/20 16:12 Dose 1 g in 50 mls @ ud IV .STK-MED ONE Methylprednisolone Sodium Succinate 125 mg 06/01/20 14:27 06/01/20 14:46 Solu-Medrol 125 Mg IV 06/01/20 14:28 125 mg STAT ONE Administration Methylprednisolone Sodium Succinate Confirm 06/01/20 14:35 Solu-Medrol 125 Mg Administered 06/01/20 14:36 Dose 125 mg .ROUTE .STK-MED ONE Ondansetron HCl 4 mg 06/01/20 14:27 06/01/20 14:46 Zofran 4 Mg/2 Ml Vial IV 06/01/20 14:28 4 mg STAT ONE Administration Ondansetron HCl Confirm 06/01/20 14:35 Zofran 4 Mg/2 Ml Vial Administered 06/01/20 14:36 Dose 4 mg .ROUTE .STK-MED ONE Lab/Rad Data: Laboratory Result Diagrams 06/01/20 14:20 06/01/20 14:20 Laboratory Results 06/01/20 06/01/20 06/01/20 Range/Units 15:30 15:25 14:20 WBC (4.0-10.5) K/mm3 RBC (4.1-5.6) M/mm3 Hgb (12.5-18.0) gm/dl Hct (42-50) % MCV (78-100) fl MCH (26-32) pg MCHC (32-36) g/dl RDW (11.5-14.0) % Plt Count (150-450) K/mm3 MPV (7.5-11.0) fl Gran % (36.0-66.0) % Eos # (Auto) (0-0.5) Absolute Lymphs (auto) (1.0-4.6) Absolute Monos (auto) (0.0-1.3) Lymphocytes % (24.0-44.0) % Monocytes % (0.0-12.0) % Eosinophils % (0.00-5.0) % Basophils % (0.0-0.4) % Absolute Granulocytes (1.4-6.9) Basophils # (0-0.4) pO2/FiO2 Ratio 100.0 % VBG pH 7.39 (7.32-7.42) VBG pCO2 at Pat Temp 57 H (42-55) mm/Hg VBG pO2 at Pat Temp 51 H (25-40) mm/Hg VBG HCO3 34.5 H* (22-28) meq/L VBG O2 Sat (Annie) 83.9 L (95-100) VBG Base Excess 7.6 H (-2.0-2.0) VBG Hemoglobin 13.8 VBG Carboxyhemoglobin 4.5 (0.0-6.9) % T HGB POC Potassium 4.2 (3.5-5.1) Sodium (137-145) mmol/L Potassium (3.5-5.1) mmol/L Chloride (98-107) mmol/L Carbon Dioxide (22-30) mmol/L Anion Gap (5-15) MEQ/L BUN (9-20) mg/dL Creatinine (0.66-1.25) mg/dL Estimated GFR ML/MIN Glucose (74-106) mg/dL Calcium (8.4-10.2) mg/dL Total Bilirubin (0.2-1.3) mg/dL AST (17-59) U/L ALT (0-50) U/L Alkaline Phosphatase (38-126) U/L Troponin I < 0.012 (0.000-0.034) ng/mL Serum Total Protein (6.3-8.2) g/dL Albumin (3.5-5.0) g/dL Lipase (23-300) U/L Influenza Type A Ag NEGATIVE (NEGATIVE) Influenza Type B Ag NEGATIVE (NEGATIVE) RSV (PCR) NEGATIVE (Negative) SARS-CoV-2 (PCR) NEGATIVE (NEGATIVE) 06/01/20 06/01/20 Range/Units 14:20 14:20 WBC 13.1 H (4.0-10.5) K/mm3 RBC 5.15 (4.1-5.6) M/mm3 Hgb 13.4 (12.5-18.0) gm/dl Hct 42.2 (42-50) % MCV 81.9 (78-100) fl MCH 26.0 (26-32) pg MCHC 31.8 L (32-36) g/dl RDW 16.8 H (11.5-14.0) % Plt Count 202 (150-450) K/mm3 MPV 9.7 (7.5-11.0) fl Gran % 86.1 H (36.0-66.0) % Eos # (Auto) 0.07 (0-0.5) Absolute Lymphs (auto) 0.92 L (1.0-4.6) Absolute Monos (auto) 0.81 (0.0-1.3) Lymphocytes % 7.0 L (24.0-44.0) % Monocytes % 6.2 (0.0-12.0) % Eosinophils % 0.5 (0.00-5.0) % Basophils % 0.2 (0.0-0.4) % Absolute Granulocytes 11.23 H (1.4-6.9) Basophils # 0.02 (0-0.4) pO2/FiO2 Ratio % VBG pH (7.32-7.42) VBG pCO2 at Pat Temp (42-55) mm/Hg VBG pO2 at Pat Temp (25-40) mm/Hg VBG HCO3 (22-28) meq/L VBG O2 Sat (Annie) (95-100) VBG Base Excess (-2.0-2.0) VBG Hemoglobin VBG Carboxyhemoglobin (0.0-6.9) % T HGB POC Potassium (3.5-5.1) Sodium 133 L (137-145) mmol/L Potassium 3.9 (3.5-5.1) mmol/L Chloride 94 L (98-107) mmol/L Carbon Dioxide 32 H (22-30) mmol/L Anion Gap 11.3 (5-15) MEQ/L BUN 11 (9-20) mg/dL Creatinine 0.59 L (0.66-1.25) mg/dL Estimated GFR > 60.0 ML/MIN Glucose 110 H (74-106) mg/dL Calcium 9.3 (8.4-10.2) mg/dL Total Bilirubin 1.50 H (0.2-1.3) mg/dL AST 24 (17-59) U/L ALT 18 (0-50) U/L Alkaline Phosphatase 55 (38-126) U/L Troponin I (0.000-0.034) ng/mL Serum Total Protein 7.3 (6.3-8.2) g/dL Albumin 4.3 (3.5-5.0) g/dL Lipase 112 (23-300) U/L Influenza Type A Ag (NEGATIVE) Influenza Type B Ag (NEGATIVE) RSV (PCR) (Negative) SARS-CoV-2 (PCR) (NEGATIVE) - Progress Progress: improved Progress Note: 06/01/20 16:50 Diagnosis includes Covid pneumonia, Covid, flu, COPD, STEMI, infection, NSTEMI - We'll obtain basic labs, fluids, EKG, troponin, chest x-ray - first trop negative - EKG shows no ST changes compared to previous - my read - O2 saturations consistently greater than 88% on 4 L, was on a non-rebreather for a short time - CXR shows no pneumonia, pneumothorax - my read - no other obvious lab abnormalities Patient overall feeling improved. Patient's SARS, flu were negative. I do believe patient still needs to be admitted to the hospital for COPD exacerbation he continues to sat around 87 to 88% on his normal 4 L. He was improved with albuterol and steroids here. He should continue to close monitoring in the hospital. I did discuss over the phone with his on-call PCP, Dr. Agarwal. After reviewing labs, appropriate imaging, discussion with patient and family. We decided the patient should be admitted to the hospital. I called the inpatient team discussed history, physical and results with them in detail. We decided on the plan of action and admission to [facility]. We agreed on appropriate consults and who would call them. Discussed with : Edwin Will see patient in: hospital (observation) Counseled pt/family regarding: lab results, diagnosis, rad results - Departure Departure Disposition: Observation Clinical Impression: COPD (chronic obstructive pulmonary disease) Condition: Stable Critical Care Time: No Referrals: KRUPA MAZA MD [Primary Care Provider] - Instructions: Chronic Obstructive Pulmonary Disease, Shortness of Breath (Dyspnea) (DC), Exacerbation of COPD (DC)
[2020-06-01] MEDS ORDERED: TORAdol 30 mg Injection IV PRN (16:39)
[2020-06-01] MEDS ORDERED: Zofran 4 MG/2 ML VIAL IV PRN (16:39)
[2020-06-01] MEDS ORDERED: DUONEB 0.5-3 MG/3 ml Neb IH PRN (16:39)
[2020-06-01] MEDS: PROVENTIL 2.5 MG/3 ML NEB IH SCH (18:59)
[2020-06-01] MEDS: Sodium Chloride 0.9% 500 ML 500 ML IV SCH (18:59)
[2020-06-01] MEDS ORDERED: Zithromax 500 MG/ 250 ML NaCl Premix 500 MG/250 ML IVPB IV SCH (19:00)
[2020-06-01] MEDS: Advair Hfa 230/21 Mcg COMMON CANISTER IH SCH (19:00)
[2020-06-01] MEDS: Mirapex 0.5 MG Tablet PO SCH (22:28)
[2020-06-01] MEDS: Imdur 60MG PO SCH (22:29)
[2020-06-01] MEDS: Protonix 40MG Tablet PO SCH (22:29)
[2020-06-01] MEDS: XANAX 1 MG PO SCH (22:29)
[2020-06-01] MEDS: Lopressor 25MG Tab PO SCH (22:29)
[2020-06-01] MEDS: ZOCOR 20MG PO SCH (22:30)
[2020-06-01] MEDS ORDERED: solu-MEDROL 40 MG ONE (23:33)
[2020-06-01] MEDS: Xalatan OP SCH (23:37)
[2020-06-01] MEDS: THEOPHYLLINE ER 24HR PO SCH (23:37)
[2020-06-01] MEDS: solu-MEDROL 125 MG IV SCH (23:45)
[2020-06-02] MEDS ORDERED: solu-MEDROL 125 MG IV SCH
[2020-06-02 06:00] LABS: Absolute Neutrophil Ct (ANC) 4.98 (1.4-6.9); BASOPHIL % 0.2 % (0.0-0.4); Basophil (Absolute #) 0.01 (0-0.4); Eosinophil (Absolute #) 0 (0-0.5); Hematocrit 39.6 % (42-50); Hemoglobin 12.3 gm/dl (12.5-18.0); Lymphocyte (Absolute #) 0.34 (1.0-4.6); Lymphocytes % 6.3 % (24.0-44.0); Mean Cell Volume 82.3 fl (78-100); Mean Corpuscular Hemoglobin 25.6 pg (26-32); Mean Corpuscular Hgb Concent. 31.1 g/dl (32-36); Mean Platelet Volume 9.8 fl (7.5-11.0); Monocyte (Absolute #) 0.11 (0.0-1.3); Neutrophil % 91.5 % (36.0-66.0); Platelet Count 197 K/mm3 (150-450); Red Blood Count 4.81 M/mm3 (4.1-5.6); Red Cell Distribution Width 16.2 % (11.5-14.0); White Blood Count 5.4 K/mm3 (4.0-10.5)
[2020-06-02] MEDS ORDERED: solu-MEDROL 40 MG ONE (06:12)
[2020-06-02] MEDS: solu-MEDROL 125 MG IV SCH (06:14)
[2020-06-02 06:21] LABS: ALBUMIN 3.8 g/dL (3.5-5.0); ALKALINE PHOSPHATASE 44 U/L (38-126); ANION GAP 8.7 MEQ/L (5-15); BLOOD UREA NITROGEN 11 mg/dL (9-20); CHLORIDE 93 mmol/L (98-107); Calcium 9.1 mg/dL (8.4-10.2); Carbon Dioxide 33 mmol/L (22-30); Creatinine 1 0.48 mg/dL (0.66-1.25); EST GLOMERULAR FILTRATION RATE > 60.0 ML/MIN; Glucose 135 mg/dL (74-106); Potassium 4.3 mmol/L (3.5-5.1); SGOT/AST 19 U/L (17-59); SGPT/ALT 15 U/L (0-50); SODIUM 130 mmol/L (137-145); Total Protein 6.6 g/dL (6.3-8.2)
[2020-06-02] MEDS: Spiriva 18 Mcg/Cap Inhaler IH SCH (06:34)
[2020-06-02] MEDS: PROVENTIL 2.5 MG/3 ML NEB IH SCH ×4 (06:34→18:52)
[2020-06-02] MEDS: Advair Hfa 230/21 Mcg COMMON CANISTER IH SCH ×2 (06:34→18:53)
[2020-06-02] MEDS ORDERED: Artificial Tears 15 ML OP PRN (07:41)
[2020-06-02] MEDS ORDERED: Nitrostat 0.4 MG Tablet SL PRN (07:43)
[2020-06-02] MEDS: Glucophage 500 MG PO SCH ×2 (08:02→17:42)
--- NOTE | 2020-06-02 08:43 | PCM.HP ---
History of Present Illness - Chief Complaint Chief Complaint: COPD History of Present Illness: is a 74 year old male.c/o Cough, fever, chills. COPD exacerbation. Has been going on for 2 to 3 days. Recently treated with antibiotics 1 week ago. No falls no trauma. Patient has no known Covid infections or exposures. Timing/Duration: day(s) (2-3 days) Severity: moderate Modifying Factors: Improves With: movement, ibuprofen, other (home O2) Associated Symptoms: shortness of breath - Review of Systems Constitutional: No Fever, No Chills Eyes: No Symptoms Ears, Nose, & Throat: No Symptoms Respiratory: Cough, Orthopnea, Short Of Breath Cardiac: No Chest Pain, No Edema, No Syncope Abdominal/Gastrointestinal: No Abdominal Pain, No Nausea, No Vomiting, No Diarrhea Genitourinary Symptoms: No Dysuria Musculoskeletal: No Back Pain, No Neck Pain Skin: No Rash Neurological: No Dizziness, No Focal Weakness, No Sensory Changes Psychological: No Symptoms Endocrine: No Symptoms Hematologic/Lymphatic: No Symptoms Immunological/Allergic: No Symptoms Medications & Allergies Home Medications: Home Medication List Albuterol 2.5 mg/3 ml Neb [Proventil 2.5 mg/3 ml Neb] 2.5 mg IH Q6H 02/04/14 [History Confirmed 06/01/20] Aspirin 81 mg PO DAILY 02/04/14 [History Confirmed 06/01/20] Hydrochlorothiazide 25 mg [hydroDIURIL 25 MG] 12.5 mg PO DAILY 02/04/14 [History Confirmed 06/01/20] Metformin HCl 500 mg [Glucophage 500 MG] 500 mg PO BIDWM 02/04/14 [History Confirmed 06/01/20] Omeprazole 20 MG [Prilosec 20 mg] 20 mg PO BID 02/04/14 [History Confirmed 06/01/20] Tiotropium Arion Inhaler [Spiriva 18 Mcg/Cap Inhaler] 2 puff IH QAM 02/04/14 [History Confirmed 06/01/20] Nitroglycerin 0.4 mg Tablet [Nitrostat 0.4 MG Tablet] 0.4 mg SL Q5MIN PRN MR X 3 PRN 08/01/16 [History Confirmed 06/01/20] Latanoprost 1 drop OP HS 07/29/18 [History Confirmed 06/01/20] Alprazolam 1 mg [Xanax 1 mg] 1 mg PO BID 10/14/18 [History Confirmed 06/01/20] Budesonide/Formoterol Fumarate [Symbicort 80-4.5 Mcg Inhaler] 2 puffs IH BID 10/14/18 [History Confirmed 06/01/20] Pramipexole Di-HCl [Pramipexole Dihydrochloride] 0.25 mg PO QHS 10/14/18 [History Confirmed 06/01/20] Theophylline Anhydrous 300 mg PO BID 10/14/18 [History Confirmed 06/01/20] Albuterol Common Canister [Ventolin Common Canister] 2 puff IH Q6HPRN PRN 06/01/20 [History Confirmed 06/01/20] Amlodipine Besylate 5 mg [Norvasc 5 mg] 2.5 mg PO DAILY 06/01/20 [History Confirmed 06/01/20] Isosorbide Mononitrate 60 mg [Imdur 60MG] 60 mg PO 12 06/01/20 [History Confirmed 06/01/20] Metoprolol Tartrate 25 mg [Lopressor 25MG Tab] 25 mg PO BID 06/01/20 [History Confirmed 06/01/20] Polyvinyl Alcohol Tears [Artificial Tears 15 ML] 1 drop OP Q4H PRN PRN 06/01/20 [History Confirmed 06/01/20] Rosuvastatin Calcium 20 mg PO HS 06/01/20 [History Confirmed 06/01/20] Allergies/Adverse Reactions: Allergies Allergy/AdvReac Type Severity Reaction Status Date / Time nicotine [From [facility]] Allergy Severe Rash Verified 07/29/18 11:04 - Past Medical History Past Medical History: Yes Neurological History: No Pertinent History ENT History: No Pertinent History Cardiac History: Aneurysm, Hypertension Respiratory History: COPD, Sleep Apnea Endocrine Medical History: Diabetes Type II Musculoskelatal History: No Pertinent History GI Medical History: No Pertinent History, GERD History: No Pertinent History Pyscho-Social History: Anxiety Male Reproductive Disorders: No Pertinent History Comment: 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 Pt also states he had an increase of SOB and chest pain that he has seen Dr. Mallory for and he has been put on nitro. PT wears 2 L of oxygen at night and when he is resting during the day. - Past Surgical History Past Surgical History: Yes Neuro Surgical History: No Pertinent History Cardiac History: No Pertinent History Respiratory Surgery: Other GI Surgical History: Hernia Repair Genitourinary Surgical Hx: No Pertinent History Musculskeletal Surgical Hx: Orthopedic Surgery Male Surgical History: Vasectomy Other Surgical History: BACK SURGERY, and ear surgery and a left lung biopsy. 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 - Social History Smoking Status: Former smoker How long have you smoked: 40 + Exposure to second hand smoke: No Alcohol: None Drug Use: none - Physical Exam Vital Signs: Vital Signs - 24 hr Temp Pulse Resp BP Pulse Ox 06/02/20 07:44 98.1 F 71 20 107/75 92 L 06/02/20 06:38 71 20 92 L 06/02/20 04:00 95.3 F 67 18 108/75 95 06/02/20 00:00 95.5 F 73 28 H 106/67 94 L 06/01/20 19:53 108 H 26 H 89 L 06/01/20 19:41 96.6 F 116 H 137/86 91 L 06/01/20 19:00 85 L 06/01/20 17:51 98.2 F 104 H 22 130/72 85 L 06/01/20 16:53 87 L 06/01/20 16:39 78 18 98 06/01/20 16:09 98.4 F 97 H 28 H 135/74 87 L 06/01/20 15:34 96 H 18 98 06/01/20 14:06 98.4 F 121 H 30 H 172/104 99 Oxygen-Last 24 hours Oxygen Flowrate (L/min)-RT 5 Oxygen Flowrate (L/min)-RT 5 General Appearance: no apparent distress, alert Neurologic Exam: alert, oriented x 3, cooperative, normal mood/affect, nml cerebellar function, nml station & gait, sensation nml, No motor deficits Eye Exam: PERRL/EOMI, eyes nml inspection Ears, Nose, Throat Exam: normal ENT inspection, TMs normal, pharynx normal, moist mucous membranes Neck Exam: normal inspection, non-tender, supple, full range of motion Respiratory Exam: normal breath sounds, diminished breath sounds, prolonged expirations, crackles/rales, rhonchi, No respiratory distress Cardiovascular Exam: regular rate/rhythm, normal heart sounds, normal peripheral pulses Gastrointestinal/Abdomen Exam: soft, normal bowel sounds, No tenderness, No mass Back Exam: normal inspection, normal range of motion, No CVA tenderness, No vertebral tenderness Extremity Exam: normal inspection, normal range of motion, pelvis stable Skin Exam: normal color, warm, dry, No rash Lymphatic Exam: No adenopathy Results - Labs Lab/Micro Results: Lab Results-Last 24 Hours 06/01/20 06/01/20 06/01/20 Range/Units 14:20 14:20 14:20 WBC 13.1 H (4.0-10.5) K/mm3 RBC 5.15 (4.1-5.6) M/mm3 Hgb 13.4 (12.5-18.0) gm/dl Hct 42.2 (42-50) % MCV 81.9 (78-100) fl MCH 26.0 (26-32) pg MCHC 31.8 L (32-36) g/dl RDW 16.8 H (11.5-14.0) % Plt Count 202 (150-450) K/mm3 MPV 9.7 (7.5-11.0) fl Gran % 86.1 H (36.0-66.0) % Eos # (Auto) 0.07 (0-0.5) Absolute Lymphs (auto) 0.92 L (1.0-4.6) Absolute Monos (auto) 0.81 (0.0-1.3) Lymphocytes % 7.0 L (24.0-44.0) % Monocytes % 6.2 (0.0-12.0) % Eosinophils % 0.5 (0.00-5.0) % Basophils % 0.2 (0.0-0.4) % Absolute Granulocytes 11.23 H (1.4-6.9) Basophils # 0.02 (0-0.4) pO2/FiO2 Ratio % VBG pH (7.32-7.42) VBG pCO2 at Pat Temp (42-55) mm/Hg VBG pO2 at Pat Temp (25-40) mm/Hg VBG HCO3 (22-28) meq/L VBG O2 Sat (Annie) (95-100) VBG Base Excess (-2.0-2.0) VBG Hemoglobin VBG Carboxyhemoglobin (0.0-6.9) % T HGB POC Potassium (3.5-5.1) Sodium 133 L (137-145) mmol/L Potassium 3.9 (3.5-5.1) mmol/L Chloride 94 L (98-107) mmol/L Carbon Dioxide 32 H (22-30) mmol/L Anion Gap 11.3 (5-15) MEQ/L BUN 11 (9-20) mg/dL Creatinine 0.59 L (0.66-1.25) mg/dL Estimated GFR > 60.0 ML/MIN Glucose 110 H (74-106) mg/dL POC Glucometer (74 to 106) mg/dL Calcium 9.3 (8.4-10.2) mg/dL Total Bilirubin 1.50 H (0.2-1.3) mg/dL AST 24 (17-59) U/L ALT 18 (0-50) U/L Alkaline Phosphatase 55 (38-126) U/L Troponin I < 0.012 (0.000-0.034) ng/mL Serum Total Protein 7.3 (6.3-8.2) g/dL Albumin 4.3 (3.5-5.0) g/dL Lipase 112 (23-300) U/L Influenza Type A Ag (NEGATIVE) Influenza Type B Ag (NEGATIVE) RSV (PCR) (Negative) SARS-CoV-2 (PCR) (NEGATIVE) 06/01/20 06/01/20 06/01/20 Range/Units 15:25 15:30 18:00 WBC (4.0-10.5) K/mm3 RBC (4.1-5.6) M/mm3 Hgb (12.5-18.0) gm/dl Hct (42-50) % MCV (78-100) fl MCH (26-32) pg MCHC (32-36) g/dl RDW (11.5-14.0) % Plt Count (150-450) K/mm3 MPV (7.5-11.0) fl Gran % (36.0-66.0) % Eos # (Auto) (0-0.5) Absolute Lymphs (auto) (1.0-4.6) Absolute Monos (auto) (0.0-1.3) Lymphocytes % (24.0-44.0) % Monocytes % (0.0-12.0) % Eosinophils % (0.00-5.0) % Basophils % (0.0-0.4) % Absolute Granulocytes (1.4-6.9) Basophils # (0-0.4) pO2/FiO2 Ratio 100.0 % VBG pH 7.39 (7.32-7.42) VBG pCO2 at Pat Temp 57 H (42-55) mm/Hg VBG pO2 at Pat Temp 51 H (25-40) mm/Hg VBG HCO3 34.5 H* (22-28) meq/L VBG O2 Sat (Annie) 83.9 L (95-100) VBG Base Excess 7.6 H (-2.0-2.0) VBG Hemoglobin 13.8 VBG Carboxyhemoglobin 4.5 (0.0-6.9) % T HGB POC Potassium 4.2 (3.5-5.1) Sodium (137-145) mmol/L Potassium (3.5-5.1) mmol/L Chloride (98-107) mmol/L Carbon Dioxide (22-30) mmol/L Anion Gap (5-15) MEQ/L BUN (9-20) mg/dL Creatinine (0.66-1.25) mg/dL Estimated GFR ML/MIN Glucose (74-106) mg/dL POC Glucometer (74 to 106) mg/dL Calcium (8.4-10.2) mg/dL Total Bilirubin (0.2-1.3) mg/dL AST (17-59) U/L ALT (0-50) U/L Alkaline Phosphatase (38-126) U/L Troponin I < 0.012 (0.000-0.034) ng/mL Serum Total Protein (6.3-8.2) g/dL Albumin (3.5-5.0) g/dL Lipase (23-300) U/L Influenza Type A Ag NEGATIVE (NEGATIVE) Influenza Type B Ag NEGATIVE (NEGATIVE) RSV (PCR) NEGATIVE (Negative) SARS-CoV-2 (PCR) NEGATIVE (NEGATIVE) 06/01/20 06/01/20 06/02/20 Range/Units 20:55 23:30 02:35 WBC (4.0-10.5) K/mm3 RBC (4.1-5.6) M/mm3 Hgb (12.5-18.0) gm/dl Hct (42-50) % MCV (78-100) fl MCH (26-32) pg MCHC (32-36) g/dl RDW (11.5-14.0) % Plt Count (150-450) K/mm3 MPV (7.5-11.0) fl Gran % (36.0-66.0) % Eos # (Auto) (0-0.5) Absolute Lymphs (auto) (1.0-4.6) Absolute Monos (auto) (0.0-1.3) Lymphocytes % (24.0-44.0) % Monocytes % (0.0-12.0) % Eosinophils % (0.00-5.0) % Basophils % (0.0-0.4) % Absolute Granulocytes (1.4-6.9) Basophils # (0-0.4) pO2/FiO2 Ratio % VBG pH (7.32-7.42) VBG pCO2 at Pat Temp (42-55) mm/Hg VBG pO2 at Pat Temp (25-40) mm/Hg VBG HCO3 (22-28) meq/L VBG O2 Sat (Annie) (95-100) VBG Base Excess (-2.0-2.0) VBG Hemoglobin VBG Carboxyhemoglobin (0.0-6.9) % T HGB POC Potassium (3.5-5.1) Sodium (137-145) mmol/L Potassium (3.5-5.1) mmol/L Chloride (98-107) mmol/L Carbon Dioxide (22-30) mmol/L Anion Gap (5-15) MEQ/L BUN (9-20) mg/dL Creatinine (0.66-1.25) mg/dL Estimated GFR ML/MIN Glucose (74-106) mg/dL POC Glucometer (74 to 106) mg/dL Calcium (8.4-10.2) mg/dL Total Bilirubin (0.2-1.3) mg/dL AST (17-59) U/L ALT (0-50) U/L Alkaline Phosphatase (38-126) U/L Troponin I < 0.012 < 0.012 < 0.012 (0.000-0.034) ng/mL Serum Total Protein (6.3-8.2) g/dL Albumin (3.5-5.0) g/dL Lipase (23-300) U/L Influenza Type A Ag (NEGATIVE) Influenza Type B Ag (NEGATIVE) RSV (PCR) (Negative) SARS-CoV-2 (PCR) (NEGATIVE) 06/02/20 06/02/20 06/02/20 Range/Units 04:45 04:52 07:57 WBC 5.4 (4.0-10.5) K/mm3 RBC 4.81 (4.1-5.6) M/mm3 Hgb 12.3 L (12.5-18.0) gm/dl Hct 39.6 L (42-50) % MCV 82.3 (78-100) fl MCH 25.6 L (26-32) pg MCHC 31.1 L (32-36) g/dl RDW 16.2 H (11.5-14.0) % Plt Count 197 (150-450) K/mm3 MPV 9.8 (7.5-11.0) fl Gran % 91.5 H (36.0-66.0) % Eos # (Auto) 0 (0-0.5) Absolute Lymphs (auto) 0.34 L (1.0-4.6) Absolute Monos (auto) 0.11 (0.0-1.3) Lymphocytes % 6.3 L (24.0-44.0) % Monocytes % 2.0 (0.0-12.0) % Eosinophils % 0.0 (0.00-5.0) % Basophils % 0.2 (0.0-0.4) % Absolute Granulocytes 4.98 (1.4-6.9) Basophils # 0.01 (0-0.4) pO2/FiO2 Ratio % VBG pH (7.32-7.42) VBG pCO2 at Pat Temp (42-55) mm/Hg VBG pO2 at Pat Temp (25-40) mm/Hg VBG HCO3 (22-28) meq/L VBG O2 Sat (Annie) (95-100) VBG Base Excess (-2.0-2.0) VBG Hemoglobin VBG Carboxyhemoglobin (0.0-6.9) % T HGB POC Potassium (3.5-5.1) Sodium 130 L (137-145) mmol/L Potassium 4.3 (3.5-5.1) mmol/L Chloride 93 L (98-107) mmol/L Carbon Dioxide 33 H (22-30) mmol/L Anion Gap 8.7 (5-15) MEQ/L BUN 11 (9-20) mg/dL Creatinine 0.48 L (0.66-1.25) mg/dL Estimated GFR > 60.0 ML/MIN Glucose 135 H (74-106) mg/dL POC Glucometer 114 H (74 to 106) mg/dL Calcium 9.1 (8.4-10.2) mg/dL Total Bilirubin 1.30 (0.2-1.3) mg/dL AST 19 (17-59) U/L ALT 15 (0-50) U/L Alkaline Phosphatase 44 (38-126) U/L Troponin I (0.000-0.034) ng/mL Serum Total Protein 6.6 (6.3-8.2) g/dL Albumin 3.8 (3.5-5.0) g/dL Lipase (23-300) U/L Influenza Type A Ag (NEGATIVE) Influenza Type B Ag (NEGATIVE) RSV (PCR) (Negative) SARS-CoV-2 (PCR) (NEGATIVE) Microbiology 06/01/20 14:45 Gram Stain - Final Sputum - Expectorant Sputum Culture - Preliminary GRAM NEGATIVE ID AND SENSITIVITY PENDING Accuchecks Date 06/02/20 Date 06/02/20 Time 08:03 Time 07:58 - Radiology Impressions Radiology Exams & Impressions: Radiology Procedures Category Date Time Status CHEST 2 VIEWS (PA AND LAT) Stat Exams 06/01/20 14:26 Completed - Other Procedures and Tests Respiratory Therapy 06/01/20 15:34 Respiratory Therapy Assessment DAILY 06/01/20 18:18 Oxygen NASAL CANNULA 6 lpm Assessment/Plan (1) Acute exacerbation of chronic obstructive airways disease Current Visit: Yes Status: Resolved Onset Date: ~07/29/18 Assessment & Plan: Chief Complaint Diagnosis COPD Allergies Allergy/AdvReac Type Severity Reaction Status Date / Time nicotine [From [facility]] Allergy Severe Rash Verified 07/29/18 11:04 Vital Signs (Last 24 hours) Temp Pulse Resp BP Pulse Ox 06/02/20 07:44 98.1 F 71 20 107/75 92 L 06/02/20 06:38 71 20 92 L 06/02/20 04:00 95.3 F 67 18 108/75 95 06/02/20 00:00 95.5 F 73 28 H 106/67 94 L 06/01/20 19:53 108 H 26 H 89 L 06/01/20 19:41 96.6 F 116 H 137/86 91 L 06/01/20 19:00 85 L 06/01/20 17:51 98.2 F 104 H 22 130/72 85 L 06/01/20 16:53 87 L 06/01/20 16:39 78 18 98 06/01/20 16:09 98.4 F 97 H 28 H 135/74 87 L 06/01/20 15:34 96 H 18 98 06/01/20 14:06 98.4 F 121 H 30 H 172/104 99 Home Medications Medication Instructions Recorded Confirmed Last Taken Type Albuterol Common Canister 2 puff IH Q6HPRN PRN 06/01/20 06/01/20 Unknown History [Ventolin Common Canister] Amlodipine Besylate 5 mg 2.5 mg PO DAILY 06/01/20 06/01/20 06/01/20 History [Norvasc 5 mg] Isosorbide Mononitrate 60 mg 60 mg PO 12 06/01/20 06/01/20 05/31/20 History [Imdur 60MG] Metoprolol Tartrate 25 mg 25 mg PO BID 06/01/20 06/01/20 06/01/20 History [Lopressor 25MG Tab] Polyvinyl Alcohol Tears 1 drop OP Q4H PRN PRN 06/01/20 06/01/20 Unknown History [Artificial Tears 15 ML] Rosuvastatin Calcium 20 mg PO HS 06/01/20 06/01/20 05/31/20 History Current Medications Generic Name Dose Route Start Last Admin Trade Name Freq PRN Reason Stop Dose Admin Albuterol Sulfate 2.5 mg 06/01/20 19:00 06/02/20 06:34 Proventil 2.5 Mg/3 Ml Neb IH 07/01/20 18:59 2.5 mg QIDRT FAHEEM Administration Albuterol/Ipratropium 3 ml 06/01/20 16:39 06/01/20 18:54 Duoneb 0.5-3 Mg/3 Ml Neb IH 07/01/20 16:38 3 ml Q4HPRN PRN Administration SHORTNESS OF BREATH/WHEEZING Alprazolam 1 mg 06/01/20 22:00 06/01/20 22:29 Xanax 1 Mg PO 07/01/20 21:59 1 mg BID FAHEEM Administration Amlodipine Besylate 2.5 mg 06/02/20 10:00 Norvasc 5 Mg PO 07/02/20 09:59 DAILY FAHEEM Artificial Tears 0 ml 06/02/20 07:41 Artificial Tears 15 Ml OP 07/02/20 07:40 Q4H PRN PRN dry eyes Aspirin 81 mg 06/02/20 10:00 Ecotrin 81 Mg PO 07/02/20 09:59 DAILY FAHEEM Hydrochlorothiazide 12.5 mg 06/02/20 10:00 Hydrodiuril 25 Mg PO 07/02/20 09:59 DAILY FAHEEM Ceftriaxone Sodium/Dextrose 1 g in 50 mls @ 100 mls/hr 06/02/20 16:00 Rocephin 1 Gm-D5w 50 Ml Bag IV 07/02/20 15:59 Q24H10 FAHEEM Sodium Chloride 500 mls @ 30 mls/hr 06/01/20 19:00 06/01/20 18:59 Sodium Chloride 0.9% 500 Ml IV 07/01/20 18:59 30 mls/hr .[id number] FAHEEM Administration Azithromycin 500 mg in 250 mls @ 250 mls/hr 06/02/20 22:00 Zithromax 500 Mg/ 250 Ml Nacl Premix IV 07/01/20 18:59 Q24H22 FAHEEM Isosorbide Mononitrate 60 mg 06/01/20 22:00 06/01/20 22:29 Imdur 60mg PO 07/01/20 21:59 60 mg Q12HT FAHEEM Administration Ketorolac Tromethamine 30 mg 06/01/20 16:39 Toradol 30 Mg Injection IV 06/06/20 16:38 Q6H PRN PRN PAIN Latanoprost 1 ml 06/01/20 22:00 06/01/20 23:37 Xalatan OP 07/01/20 21:59 Not Given HS FAHEEM Metformin HCl 500 mg 06/02/20 08:00 06/02/20 08:02 Glucophage 500 Mg PO 07/02/20 07:59 500 mg BIDWM FAHEEM Administration Methylprednisolone Sodium Succinate 40 mg 06/02/20 14:00 Solu-Medrol 40 Mg IV 07/02/20 13:59 Q8HT FAHEEM Metoprolol Tartrate 25 mg 06/01/20 22:00 06/01/20 22:29 Lopressor 25mg Tab PO 07/01/20 21:59 25 mg BID FAHEEM Administration Nitroglycerin 0.4 mg 06/02/20 07:43 Nitrostat 0.4 Mg Tablet SL 07/02/20 07:42 Q5MIN PRN MR X 3 PRN CHEST PAIN Ondansetron HCl 4 mg 06/01/20 16:39 Zofran 4 Mg/2 Ml Vial IV 07/01/20 16:38 Q6H PRN PRN NAUSEA/VOMITING Pantoprazole Sodium 40 mg 06/01/20 22:00 06/01/20 22:29 Protonix 40mg Tablet PO 07/01/20 21:59 40 mg BID FAHEEM Administration Pramipexole Dihydrochloride 0.25 mg 06/01/20 22:00 06/01/20 22:28 Mirapex 0.5 Mg Tablet PO 07/01/20 21:59 0.25 mg HS FAHEEM Administration Fluticasone/Salmeterol 2 puff 06/01/20 19:00 06/02/20 06:34 Advair Hfa 230/21 Mcg Common Canister* IH 07/01/20 18:59 2 puff BIDRT FAHEEM Administration Simvastatin 40 mg 06/01/20 22:00 06/01/20 22:30 Zocor 20mg PO 07/01/20 21:59 40 mg HS FAHEEM Administration Theophylline 300 mg 06/01/20 22:00 06/01/20 23:37 Theophylline Er 24hr PO 07/01/20 21:59 Not Given BID FAHEEM Tiotropium Arion 1 ea 06/02/20 10:00 06/02/20 06:34 Spiriva 18 Mcg/Cap Inhaler IH 07/02/20 09:59 1 ea DAILY FAHEEM Administration Discontinued Medications Generic Name Dose Route Start Last Admin Trade Name Freq PRN Reason Stop Dose Admin Albuterol/Ipratropium 3 ml 06/01/20 14:27 06/01/20 15:32 Duoneb 0.5-3 Mg/3 Ml Neb IH 06/01/20 14:28 3 ml STAT ONE Administration Albuterol/Ipratropium Confirm 06/01/20 15:23 Duoneb 0.5-3 Mg/3 Ml Neb Administered 06/01/20 15:24 Dose 3 ml IH .STK-MED ONE Aspirin 324 mg 06/01/20 14:25 06/01/20 14:31 Baby Aspirin 81 Mg Chew PO 06/01/20 14:26 324 mg STAT ONE Administration Ceftriaxone Sodium/Dextrose 1 g in 50 mls @ 100 mls/hr 06/01/20 15:27 06/01/20 16:45 Rocephin 1 Gm-D5w 50 Ml Bag IV 06/01/20 15:56 Infused STAT STA Infusion Ceftriaxone Sodium/Dextrose Confirm 06/01/20 16:11 Rocephin 1 Gm-D5w 50 Ml Bag Administered 06/01/20 16:12 Dose 1 g in 50 mls @ ud IV .STK-MED ONE Azithromycin 500 mg in 250 mls @ 250 mls/hr 06/01/20 19:00 06/01/20 19:51 Zithromax 500 Mg/ 250 Ml Nacl Premix IV 07/01/20 18:59 250 mls/hr Q24H10 FAHEEM Administration Methylprednisolone Sodium Succinate 125 mg 06/01/20 14:27 06/01/20 14:46 Solu-Medrol 125 Mg IV 06/01/20 14:28 125 mg STAT ONE Administration Methylprednisolone Sodium Succinate Confirm 06/01/20 14:35 Solu-Medrol 125 Mg Administered 06/01/20 14:36 Dose 125 mg .ROUTE .STK-MED ONE Methylprednisolone Sodium Succinate 80 mg 06/02/20 00:00 Solu-Medrol 125 Mg IV 07/02/20 00:00 Q6HT FAHEEM Methylprednisolone Sodium Succinate 40 mg 06/02/20 00:00 06/02/20 06:14 Solu-Medrol 125 Mg IV 07/02/20 00:00 40 mg Q8HT FAHEEM Administration Methylprednisolone Sodium Succinate Confirm 06/01/20 23:33 Solu-Medrol 40 Mg Administered 06/01/20 23:34 Dose 40 mg .ROUTE .STK-MED ONE Methylprednisolone Sodium Succinate Confirm 06/02/20 06:12 Solu-Medrol 40 Mg Administered 06/02/20 06:13 Dose 40 mg .ROUTE .STK-MED ONE Ondansetron HCl 4 mg 06/01/20 14:27 06/01/20 14:46 Zofran 4 Mg/2 Ml Vial IV 06/01/20 14:28 4 mg STAT ONE Administration Ondansetron HCl Confirm 06/01/20 14:35 Zofran 4 Mg/2 Ml Vial Administered 06/01/20 14:36 Dose 4 mg .ROUTE .STK-MED ONE Intake & Output (Last 24 hours) 05/30/20 05/31/20 06/01/20 06/02/20 11:59 11:59 11:59 11:59 Intake Total 456 Output Total 1170 Balance -714 Weight 81.3 kg Microbiology Results (Last 24 hours) 06/01/20 14:45 Sputum - Expectorant Gram Stain - Final 06/01/20 14:45 Sputum - Expectorant Sputum Culture - Preliminary GRAM NEGATIVE ID AND SENSITIVITY PENDING 06/01/20 15:15 Blood Blood Culture Gram Stain - Pending 06/01/20 15:15 Blood Blood Culture - Pending 06/01/20 15:23 Blood Blood Culture Gram Stain - Pending 06/01/20 15:23 Blood Blood Culture - Pending Laboratory Results (Last 24 hours) 06/02/20 06/02/20 06/02/20 07:57 04:52 04:45 WBC 5.4 RBC 4.81 Hgb 12.3 L Hct 39.6 L MCV 82.3 MCH 25.6 L MCHC 31.1 L RDW 16.2 H Plt Count 197 MPV 9.8 Gran % 91.5 H Eos # (Auto) 0 Absolute Lymphs (auto) 0.34 L Absolute Monos (auto) 0.11 Lymphocytes % 6.3 L Monocytes % 2.0 Eosinophils % 0.0 Basophils % 0.2 Absolute Granulocytes 4.98 Basophils # 0.01 pO2/FiO2 Ratio VBG pH VBG pCO2 at Pat Temp VBG pO2 at Pat Temp VBG HCO3 VBG O2 Sat (Annie) VBG Base Excess VBG Hemoglobin VBG Carboxyhemoglobin POC Potassium Sodium 130 L Potassium 4.3 Chloride 93 L Carbon Dioxide 33 H Anion Gap 8.7 BUN 11 Creatinine 0.48 L Estimated GFR > 60.0 Glucose 135 H POC Glucometer 114 H Calcium 9.1 Total Bilirubin 1.30 AST 19 ALT 15 Alkaline Phosphatase 44 Troponin I Serum Total Protein 6.6 Albumin 3.8 Lipase Influenza Type A Ag Influenza Type B Ag RSV (PCR) SARS-CoV-2 (PCR) 06/02/20 06/01/20 06/01/20 02:35 23:30 20:55 WBC RBC Hgb Hct MCV MCH MCHC RDW Plt Count MPV Gran % Eos # (Auto) Absolute Lymphs (auto) Absolute Monos (auto) Lymphocytes % Monocytes % Eosinophils % Basophils % Absolute Granulocytes Basophils # pO2/FiO2 Ratio VBG pH VBG pCO2 at Pat Temp VBG pO2 at Pat Temp VBG HCO3 VBG O2 Sat (Annie) VBG Base Excess VBG Hemoglobin VBG Carboxyhemoglobin POC Potassium Sodium Potassium Chloride Carbon Dioxide Anion Gap BUN Creatinine Estimated GFR Glucose POC Glucometer Calcium Total Bilirubin AST ALT Alkaline Phosphatase Troponin I < 0.012 < 0.012 < 0.012 Serum Total Protein Albumin Lipase Influenza Type A Ag Influenza Type B Ag RSV (PCR) SARS-CoV-2 (PCR) 06/01/20 06/01/20 06/01/20 18:00 15:30 15:25 WBC RBC Hgb Hct MCV MCH MCHC RDW Plt Count MPV Gran % Eos # (Auto) Absolute Lymphs (auto) Absolute Monos (auto) Lymphocytes % Monocytes % Eosinophils % Basophils % Absolute Granulocytes Basophils # pO2/FiO2 Ratio 100.0 VBG pH 7.39 VBG pCO2 at Pat Temp 57 H VBG pO2 at Pat Temp 51 H VBG HCO3 34.5 H* VBG O2 Sat (Annie) 83.9 L VBG Base Excess 7.6 H VBG Hemoglobin 13.8 VBG Carboxyhemoglobin 4.5 POC Potassium 4.2 Sodium Potassium Chloride Carbon Dioxide Anion Gap BUN Creatinine Estimated GFR Glucose POC Glucometer Calcium Total Bilirubin AST ALT Alkaline Phosphatase Troponin I < 0.012 Serum Total Protein Albumin Lipase Influenza Type A Ag NEGATIVE Influenza Type B Ag NEGATIVE RSV (PCR) NEGATIVE SARS-CoV-2 (PCR) NEGATIVE 06/01/20 06/01/20 06/01/20 14:20 14:20 14:20 WBC 13.1 H RBC 5.15 Hgb 13.4 Hct 42.2 MCV 81.9 MCH 26.0 MCHC 31.8 L RDW 16.8 H Plt Count 202 MPV 9.7 Gran % 86.1 H Eos # (Auto) 0.07 Absolute Lymphs (auto) 0.92 L Absolute Monos (auto) 0.81 Lymphocytes % 7.0 L Monocytes % 6.2 Eosinophils % 0.5 Basophils % 0.2 Absolute Granulocytes 11.23 H Basophils # 0.02 pO2/FiO2 Ratio VBG pH VBG pCO2 at Pat Temp VBG pO2 at Pat Temp VBG HCO3 VBG O2 Sat (Annie) VBG Base Excess VBG Hemoglobin VBG Carboxyhemoglobin POC Potassium Sodium 133 L Potassium 3.9 Chloride 94 L Carbon Dioxide 32 H Anion Gap 11.3 BUN 11 Creatinine 0.59 L Estimated GFR > 60.0 Glucose 110 H POC Glucometer Calcium 9.3 Total Bilirubin 1.50 H AST 24 ALT 18 Alkaline Phosphatase 55 Troponin I < 0.012 Serum Total Protein 7.3 Albumin 4.3 Lipase 112 Influenza Type A Ag Influenza Type B Ag RSV (PCR) SARS-CoV-2 (PCR) Orders (Last 24 hours) Category Date Time Status Shellac Polisher STAT Care 06/01/20 14:27 Active Code Status Order ROUTINE Care 06/01/20 16:39 Active EKG-ER Only STAT Care 06/01/20 14:25 Active IV Care Q6H Care 06/01/20 16:39 Active IV Insertion STAT Care 06/01/20 14:25 Active POCT Glucose Check ACHS Care 06/02/20 07:[address] in Observation ROUTINE Care 06/01/20 16:39 Active Telemetry q6h Care 06/01/20 16:55 Active Pre Algebra Teacher/Discharge Plan ROUTINE Cons 06/01/20 18:13 Active Nutritional Admission Screen ONCE Diet 06/01/20 18:13 Active CHEST 2 VIEWS (PA AND LAT) Stat Exams 06/01/20 14:26 Completed BLOOD CULTURE Stat Lab 06/01/20 15:15 Received CBC W DIFF AM.LAB Lab 06/02/20 04:52 Completed CBC W DIFF Stat Lab 06/01/20 14:20 Completed CMP AM.LAB Lab 06/02/20 04:45 Completed CMP Stat Lab 06/01/20 14:20 Completed CULTURE,SPUTUM Stat Lab 06/01/20 14:45 Results FLU/RSV Panel Stat Lab 06/01/20 15:25 Completed LIPASE Stat Lab 06/01/20 14:20 Completed POCT GLUCOSE Stat Lab 06/02/20 07:57 Completed TROPONIN Q3H Lab 06/01/20 14:20 Completed TROPONIN Q3H Lab 06/01/20 18:00 Completed TROPONIN Q3H Lab 06/01/20 20:55 Completed TROPONIN Q3H Lab 06/01/20 23:30 Completed TROPONIN Q3H Lab 06/02/20 02:35 Completed VENOUS BLOOD GAS Urgent Lab 06/01/20 15:30 Completed Albuterol 2.5 mg/3 ml Neb [Proventil 2.5 mg/3 ml Neb Med 06/01/20 19:00 Active ] 2.5 mg IH QIDRT Albuterol/Ipratropium 3ml Neb* [DUONEB 0.5-3 MG/3 ml Med 06/01/20 15:23 Discontinued Neb] 3 ml IH .STK-MED ONE Albuterol/Ipratropium 3ml Neb* [DUONEB 0.5-3 MG/3 ml Med 06/01/20 16:39 Active Neb] 3 ml IH Q4HPRN PRN Albuterol/Ipratropium 3ml Neb* [DUONEB 0.5-3 MG/3 ml Med 06/01/20 14:27 Discontinued Neb] 3 ml IH STAT ONE Alprazolam 1 mg [Xanax 1 mg] Med 06/01/20 22:00 Active 1 mg PO BID Amlodipine Besylate 5 mg [Norvasc 5 mg] Med 06/02/20 10:00 Active 2.5 mg PO DAILY Aspirin 81 gm Chew [Baby Aspirin 81 mg Chew] Med 06/01/20 14:25 Discontinued 324 mg PO STAT ONE Aspirin EC 81 mg [Ecotrin 81 mg] Med 06/02/20 10:00 Active 81 mg PO DAILY Azithromycin 500 mg/250 ml [Zithromax 500 MG/ 250 ML Med 06/01/20 19:00 Discontinued NaCl Premix] 500 mg in 250 ml IV Q24H10 Azithromycin 500 mg/250 ml [Zithromax 500 MG/ 250 ML Med 06/02/20 22:00 Active NaCl Premix] 500 mg in 250 ml IV Q24H22 Ceftriaxone 1 GM/50 ML PREMIX* [ROCEPHIN 1 Gm-D5w 50 ml Med 06/02/20 16:00 Active Bag] 1 g in 50 ml IV Q24H10 Ceftriaxone 1 GM/50 ML PREMIX* [ROCEPHIN 1 Gm-D5w 50 ml Med 06/01/20 15:27 Discontinued Bag] 1 g in 50 ml IV STAT Ceftriaxone 1 GM/50 ML PREMIX* [ROCEPHIN 1 Gm-D5w 50 ml Med 06/01/20 16:11 Discontinued Bag] 1 g in 50 ml IV UD Fluticasone/Salmeterol 230/21 [Advair Hfa 230/21 Mcg Med 06/01/20 19:00 Active COMMON CANISTER*] 2 puff IH BIDRT Hydrochlorothiazide 25 mg [hydroDIURIL 25 MG] Med 06/02/20 10:00 Active 12.5 mg PO DAILY Isosorbide Mononitrate 60 mg [Imdur 60MG] Med 06/01/20 22:00 Active 60 mg PO Q12HT KETOROLAC trometh 30 mg Inj [TORAdol 30 mg Injection Med 06/01/20 16:39 Active ] 30 mg IV Q6H PRN PRN Latanoprost [Xalatan] Med 06/01/20 22:00 Active 1 ml OP HS Metformin HCl 500 mg [Glucophage 500 MG] Med 06/02/20 08:00 Active 500 mg PO BIDWM Methylprednis Sod Succ 125 mg* [solu-MEDROL 125 MG] Med 06/01/20 14:35 Discontinued 125 mg .ROUTE .STK-MED ONE Methylprednis Sod Succ 125 mg* [solu-MEDROL 125 MG] Med 06/01/20 14:27 Discontinued 125 mg IV STAT ONE Methylprednis Sod Succ 125 mg* [solu-MEDROL 125 MG] Med 06/02/20 00:00 Discontinued 40 mg IV Q8HT Methylprednis Sod Succ 125 mg* [solu-MEDROL 125 MG] Med 06/02/20 00:00 Discontinued 80 mg IV Q6HT Methylprednisolone Sod Suc 40M [solu-MEDROL 40 MG] Med 06/01/20 23:33 Discontinued 40 mg .ROUTE .STK-MED ONE Methylprednisolone Sod Suc 40M [solu-MEDROL 40 MG] Med 06/02/20 06:12 Discontinued 40 mg .ROUTE .STK-MED ONE Methylprednisolone Sod Suc 40M [solu-MEDROL 40 MG] Med 06/02/20 14:00 Active 40 mg IV Q8HT Metoprolol Tartrate 25 mg [Lopressor 25MG Tab] Med 06/01/20 22:00 Active 25 mg PO BID NaCl 0.9% 500 ml [Sodium Chloride 0.9% 500 ML] 500 ml Med 06/01/20 19:00 Active IV 30 mls/hr Nitroglycerin 0.4 mg Tablet [Nitrostat 0.4 MG Tablet Med 06/02/20 07:43 Active ] 0.4 mg SL Q5MIN PRN MR X 3 PRN Ondansetron HCl 4 mg/2 ml [Zofran 4 MG/2 ML VIAL] Med 06/01/20 14:35 Discontinued 4 mg .ROUTE .STK-MED ONE Ondansetron HCl 4 mg/2 ml [Zofran 4 MG/2 ML VIAL] Med 06/01/20 16:39 Active 4 mg IV Q6H PRN PRN Ondansetron HCl 4 mg/2 ml [Zofran 4 MG/2 ML VIAL] Med 06/01/20 14:27 Discontinued 4 mg IV STAT ONE PANTOPRAZOLE 40 mg Tablet [Protonix 40MG Tablet] Med 06/01/20 22:00 Active 40 mg PO BID Polyvinyl Alcohol Tears [Artificial Tears 15 ML] Med 06/02/20 07:41 Active 0 ml OP Q4H PRN PRN Pramipexole Di-HCl 0.5 mg [Mirapex 0.5 MG Tablet] Med 06/01/20 22:00 Active 0.25 mg PO HS Simvastatin 20Mg [Zocor 20Mg] Med 06/01/20 22:00 Active 40 mg PO HS Theophylline Anhydrous [Theophylline ER 24Hr] Med 06/01/20 22:00 Active 300 mg PO BID Tiotropium [place] Inhaler [Spiriva 18 Mcg/Cap Med 06/02/20 10:00 Active Inhaler] 1 ea IH DAILY Oxygen NASAL CANNULA 6 lpm RT 06/01/20 18:18 Active Pulse Oximetry CONTINUOUS RT 06/01/20 19:00 Active RT Screen per Nursing Assess ONCE RT 06/01/20 18:13 Completed Respiratory Therapy Assessment DAILY RT 06/01/20 15:34 Active Respiratory Therapy Consult ROUTINE RT 06/01/20 16:39 Completed Code(s): J44.1 - CHRONIC OBSTRUCTIVE PULMONARY DISEASE W (ACUTE) EXACERBATION (2) Viral illness Current Visit: Yes Status: Acute (3) GERD (gastroesophageal reflux disease) Current Visit: No Status: Chronic Qualifiers: Code(s): K21.9 - GASTRO-ESOPHAGEAL REFLUX DISEASE WITHOUT ESOPHAGITIS (4) HTN (hypertension) Current Visit: No Status: Chronic Qualifiers: Code(s): I10 - ESSENTIAL (PRIMARY) HYPERTENSION
[2020-06-02] MEDS: Imdur 60MG PO SCH ×2 (09:55→22:12)
[2020-06-02] MEDS: ECOTRIN 81 MG PO SCH (09:55)
[2020-06-02] MEDS: hydroDIURIL 25 MG PO SCH (09:55)
[2020-06-02] MEDS: XANAX 1 MG PO SCH ×2 (09:56→22:12)
[2020-06-02] MEDS: Protonix 40MG Tablet PO SCH ×2 (09:56→22:12)
[2020-06-02] MEDS: THEOPHYLLINE ER 24HR PO SCH ×2 (09:56→22:22)
[2020-06-02] MEDS: NORVASC 5 MG PO SCH (09:56)
[2020-06-02] MEDS: Lopressor 25MG Tab PO SCH ×2 (09:56→22:12)
[2020-06-02] MEDS ORDERED: NON-FORMULARY ITEM (Aspirin [Aspirin] 81 MG) PO SCH (10:00)
[2020-06-02 10:26] LABS: Slide Review 1 YES
[2020-06-02] MEDS: solu-MEDROL 40 MG IV SCH ×2 (14:17→22:12)
[2020-06-02] MEDS: ROCEPHIN 1 Gm-D5w 50 ml Bag** 1 G/50 ML IVPB IV SCH (15:40)
[2020-06-02] MEDS: Sodium Chloride 0.9% 500 ML 500 ML IV SCH (15:40)
[2020-06-02] MEDS ORDERED: Zithromax 500 MG/ 250 ML NaCl Premix 500 MG/250 ML IVPB IV SCH (22:00)
[2020-06-02] MEDS: ZOCOR 20MG PO SCH (22:12)
[2020-06-02] MEDS: Mirapex 0.5 MG Tablet PO SCH (22:12)
[2020-06-02] MEDS: Xalatan OP SCH (22:22)
[2020-06-03] MEDS: solu-MEDROL 40 MG IV SCH (06:22)
[2020-06-03] MEDS: PROVENTIL 2.5 MG/3 ML NEB IH SCH ×2 (06:38→10:30)
[2020-06-03] MEDS: Advair Hfa 230/21 Mcg COMMON CANISTER IH SCH (06:38)
[2020-06-03] MEDS: Spiriva 18 Mcg/Cap Inhaler IH SCH (06:38)
[2020-06-03] MEDS: Glucophage 500 MG PO SCH (08:17)
--- NOTE | 2020-06-03 08:21 | PCM.DS ---
Discharge Summary Date of Admission: 06/01/20 16:55 Admitting Physician: KRUPA MAZA Primary Care Provider: KRUPA MAZA [facility]ies [facility] Allergy (Severe, Verified 07/29/18 11:04) Rash Hospital Summary - Hospital Course Hospital Course: Chief Complaint Diagnosis COPD Allergies Allergy/AdvReac Type Severity Reaction Status Date / Time nicotine [[facility] Allergy Severe Rash Verified 07/29/18 11:04 Vital Signs (Last 24 hours) Temp Pulse Resp BP Pulse Ox 06/03/20 06:42 77 21 93 L 06/03/20 04:05 88 L 06/03/20 04:00 98.4 F 85 29 H 133/70 73 L 06/02/20 23:53 98.6 F 86 28 H 110/60 94 L 06/02/20 20:00 96.8 F 85 22 111/58 93 L 06/02/20 18:59 84 20 93 L 06/02/20 15:50 97.9 F 79 18 122/68 91 L 06/02/20 15:32 92 L 06/02/20 15:09 77 24 98 06/02/20 12:00 98.0 F 75 16 116/62 96 06/02/20 10:27 82 24 93 L Home Medications Medication Instructions Recorded Confirmed Last Taken Type Albuterol Common Canister 2 puff IH Q6HPRN PRN 06/01/20 06/01/20 Unknown History [Ventolin Common Canister] Amlodipine Besylate 5 mg 2.5 mg PO DAILY 06/01/20 06/01/20 06/01/20 History [Norvasc 5 mg] Isosorbide Mononitrate 60 mg 60 mg PO 12 06/01/20 06/01/20 05/31/20 History [Imdur 60MG] Metoprolol Tartrate 25 mg 25 mg PO BID 06/01/20 06/01/20 06/01/20 History [Lopressor 25MG Tab] Polyvinyl Alcohol Tears 1 drop OP Q4H PRN PRN 06/01/20 06/01/20 Unknown History [Artificial Tears 15 ML] Rosuvastatin Calcium 20 mg PO HS 06/01/20 06/01/20 05/31/20 History Current Medications Generic Name Dose Route Start Last Admin Trade Name Freq PRN Reason Stop Dose Admin Albuterol Sulfate 2.5 mg 06/01/20 19:00 06/03/20 06:38 Proventil 2.5 Mg/3 Ml Neb IH 07/01/20 18:59 2.5 mg QIDRT FAHEEM Administration Albuterol/Ipratropium 3 ml 06/01/20 16:39 06/01/20 18:54 Duoneb 0.5-3 Mg/3 Ml Neb IH 07/01/20 16:38 3 ml Q4HPRN PRN Administration SHORTNESS OF BREATH/WHEEZING Alprazolam 1 mg 06/01/20 22:00 06/02/20 22:12 Xanax 1 Mg PO 07/01/20 21:59 1 mg BID FAHEEM Administration Amlodipine Besylate 2.5 mg 06/02/20 10:00 06/02/20 09:56 Norvasc 5 Mg PO 07/02/20 09:59 2.5 mg DAILY FAHEEM Administration Artificial Tears 0 ml 06/02/20 07:41 Artificial Tears 15 Ml OP 07/02/20 07:40 Q4H PRN PRN dry eyes Aspirin 81 mg 06/02/20 10:00 06/02/20 09:55 Ecotrin 81 Mg PO 07/02/20 09:59 81 mg DAILY FAHEEM Administration Hydrochlorothiazide 12.5 mg 06/02/20 10:00 06/02/20 09:55 Hydrodiuril 25 Mg PO 07/02/20 09:59 12.5 mg DAILY FAHEEM Administration Ceftriaxone Sodium/Dextrose 1 g in 50 mls @ 100 mls/hr 06/02/20 16:00 06/02/20 15:40 Rocephin 1 Gm-D5w 50 Ml Bag IV 07/02/20 15:59 100 mls/hr Q24H10 FAHEEM Administration Azithromycin 500 mg in 250 mls @ 250 mls/hr 06/02/20 22:00 06/02/20 22:12 Zithromax 500 Mg/ 250 Ml Nacl Premix IV 07/01/20 18:59 250 mls/hr Q24H22 FAHEEM Administration Isosorbide Mononitrate 60 mg 06/01/20 22:00 06/02/20 22:12 Imdur 60mg PO 07/01/20 21:59 60 mg Q12HT FAHEEM Administration Ketorolac Tromethamine 30 mg 06/01/20 16:39 Toradol 30 Mg Injection IV 06/06/20 16:38 Q6H PRN PRN PAIN Latanoprost 1 ml 06/01/20 22:00 06/02/20 22:22 Xalatan OP 07/01/20 21:59 1 ml HS FAHEEM Administration Metformin HCl 500 mg 06/02/20 08:00 06/03/20 08:17 Glucophage 500 Mg PO 07/02/20 07:59 500 mg BIDWM FAHEEM Administration Methylprednisolone Sodium Succinate 40 mg 06/02/20 14:00 06/03/20 06:22 Solu-Medrol 40 Mg IV 07/02/20 13:59 40 mg Q8HT FAHEEM Administration Metoprolol Tartrate 25 mg 06/01/20 22:00 06/02/20 22:12 Lopressor 25mg Tab PO 07/01/20 21:59 25 mg BID FAHEEM Administration Nitroglycerin 0.4 mg 06/02/20 07:43 Nitrostat 0.4 Mg Tablet SL 07/02/20 07:42 Q5MIN PRN MR X 3 PRN CHEST PAIN Ondansetron HCl 4 mg 06/01/20 16:39 Zofran 4 Mg/2 Ml Vial IV 07/01/20 16:38 Q6H PRN PRN NAUSEA/VOMITING Pantoprazole Sodium 40 mg 06/01/20 22:00 06/02/20 22:12 Protonix 40mg Tablet PO 07/01/20 21:59 40 mg BID FAHEEM Administration Pramipexole Dihydrochloride 0.25 mg 06/01/20 22:00 06/02/20 22:12 Mirapex 0.5 Mg Tablet PO 07/01/20 21:59 0.25 mg HS FAHEEM Administration Fluticasone/Salmeterol 2 puff 06/01/20 19:00 06/03/20 06:38 Advair Hfa 230/21 Mcg Common Canister* IH 07/01/20 18:59 2 puff BIDRT FAHEEM Administration Simvastatin 40 mg 06/01/20 22:00 06/02/20 22:12 Zocor 20mg PO 07/01/20 21:59 40 mg HS FAHEEM Administration Theophylline 300 mg 06/01/20 22:00 06/02/20 22:22 Theophylline Er 24hr PO 07/01/20 21:59 300 mg BID FAHEEM Administration Tiotropium [place] 1 ea 06/02/20 10:00 06/03/20 06:38 Spiriva 18 Mcg/Cap Inhaler IH 07/02/20 09:59 1 ea DAILY FAHEEM Administration Discontinued Medications Generic Name Dose Route Start Last Admin Trade Name Freq PRN Reason Stop Dose Admin Albuterol/Ipratropium 3 ml 06/01/20 14:27 06/01/20 15:32 Duoneb 0.5-3 Mg/3 Ml Neb IH 06/01/20 14:28 3 ml STAT ONE Administration Albuterol/Ipratropium Confirm 06/01/20 15:23 Duoneb 0.5-3 Mg/3 Ml Neb Administered 06/01/20 15:24 Dose 3 ml IH .STK-MED ONE Aspirin 324 mg 06/01/20 14:25 06/01/20 14:31 Baby Aspirin 81 Mg Chew PO 06/01/20 14:26 324 mg STAT ONE Administration Ceftriaxone Sodium/Dextrose 1 g in 50 mls @ 100 mls/hr 06/01/20 15:27 06/01/20 16:45 Rocephin 1 Gm-D5w 50 Ml Bag IV 06/01/20 15:56 Infused STAT STA Infusion Ceftriaxone Sodium/Dextrose Confirm 06/01/20 16:11 Rocephin 1 Gm-D5w 50 Ml Bag Administered 06/01/20 16:12 Dose 1 g in 50 mls @ ud IV .STK-MED ONE Azithromycin 500 mg in 250 mls @ 250 mls/hr 06/01/20 19:00 06/01/20 19:51 Zithromax 500 Mg/ 250 Ml Nacl Premix IV 07/01/20 18:59 250 mls/hr Q24H10 FAHEEM Administration Sodium Chloride 500 mls @ 30 mls/hr 06/01/20 19:00 06/02/20 15:40 Sodium Chloride 0.9% 500 Ml IV 07/01/20 18:59 Not Given .[id number] [facility] Methylprednisolone Sodium Succinate 125 mg 06/01/20 14:27 06/01/20 14:46 Solu-Medrol 125 Mg IV 06/01/20 14:28 125 mg STAT ONE Administration Methylprednisolone Sodium Succinate Confirm 06/01/20 14:35 Solu-Medrol 125 Mg Administered 06/01/20 14:36 Dose 125 mg .ROUTE .STK-MED ONE Methylprednisolone Sodium Succinate 80 mg 06/02/20 00:00 Solu-Medrol 125 Mg IV 07/02/20 00:00 Q6HT [facility] Methylprednisolone Sodium Succinate 40 mg 06/02/20 00:00 06/02/20 06:14 Solu-Medrol 125 Mg IV 07/02/20 00:00 40 mg Q8HT [facility] Administration Methylprednisolone Sodium Succinate Confirm 06/01/20 23:33 Solu-Medrol 40 Mg Administered 06/01/20 23:34 Dose 40 mg .ROUTE .STK-MED ONE Methylprednisolone Sodium Succinate Confirm 06/02/20 06:12 Solu-Medrol 40 Mg Administered 06/02/20 06:13 Dose 40 mg .ROUTE .STK-MED ONE Ondansetron HCl 4 mg 06/01/20 14:27 06/01/20 14:46 Zofran 4 Mg/2 Ml Vial IV 06/01/20 14:28 4 mg STAT ONE Administration Ondansetron HCl Confirm 06/01/20 14:35 Zofran 4 Mg/2 Ml Vial Administered 06/01/20 14:36 Dose 4 mg .ROUTE .STK-MED ONE Intake & Output (Last 24 hours) 05/31/20 06/01/20 06/02/20 06/03/20 11:59 11:59 11:59 11:59 Intake Total 1036 2110 Output Total 5460 2725 Balance -584 -1175 Weight 81.3 kg Microbiology Results (Last 24 hours) 06/01/20 14:45 Sputum - Expectorant Gram Stain - Final 06/01/20 14:45 Sputum - Expectorant Sputum Culture - Preliminary GRAM NEGATIVE ID AND SENSITIVITY PENDING Laboratory Results (Last 24 hours) 06/02/20 06/02/20 06/02/20 23:21 16:37 11:54 POC Glucometer 308 H 135 H 136 H Hemoglobin A1c Slides for Path Review 06/02/20 06/02/20 05:00 04:52 POC Glucometer Hemoglobin A1c 5.89 Slides for Path Review YES Orders (Last 24 hours) Category Date Time Status POCT Glucose Check ACHS Care 06/02/20 07:30 Active POCT GLUCOSE Stat Lab 06/02/20 07:57 Completed POCT GLUCOSE Stat Lab 06/02/20 11:54 Completed POCT GLUCOSE Stat Lab 06/02/20 16:37 Completed POCT GLUCOSE Stat Lab 06/02/20 23:21 Completed Amlodipine Besylate 5 mg [Norvasc 5 mg] Med 06/02/20 10:00 Active 2.5 mg PO DAILY Aspirin EC 81 mg [Ecotrin 81 mg] Med 06/02/20 10:00 Active 81 mg PO DAILY Azithromycin 500 mg/250 ml [Zithromax 500 MG/ 250 ML Med 06/02/20 22:00 Active NaCl Premix] 500 mg in 250 ml IV Q24H22 Ceftriaxone 1 GM/50 ML PREMIX* [ROCEPHIN 1 Gm-D5w 50 ml Med 06/02/20 16:00 Active Bag] 1 g in 50 ml IV Q24H10 Hydrochlorothiazide 25 mg [hydroDIURIL 25 MG] Med 06/02/20 10:00 Active 12.5 mg PO DAILY Metformin HCl 500 mg [Glucophage 500 MG] Med 06/02/20 08:00 Active 500 mg PO BIDWM Methylprednisolone Sod Suc 40M [solu-MEDROL 40 MG] Med 06/02/20 14:00 Active 40 mg IV Q8HT Nitroglycerin 0.4 mg Tablet [Nitrostat 0.4 MG Tablet Med 06/02/20 07:43 Active ] 0.4 mg SL Q5MIN PRN MR X 3 PRN Polyvinyl Alcohol Tears [Artificial Tears 15 ML] Med 06/02/20 07:41 Active 0 ml OP Q4H PRN PRN Tiotropium [place] Inhaler [Spiriva 18 Mcg/Cap Med 06/02/20 10:00 Active Inhaler] 1 [facility] DAILY Patient Care Notes (Last 24 hours) 06/03/20 05:16 Nursing Note by Isabella Craig At approximately 0400, patient sat up on the side of the bed to urinate in the urinal. Patient O2 sat dropped to 73%. This nurse increased his oxygen to 8L oxymizer. O2 sat up to 87-88%. Initialized on 06/03/20 05:16 - END OF NOTE 06/02/20 16:00 (created 06/02/20 18:11) Nursing Note by ARYA ELLISON DR. CALLED TO REPORT AN UPDATE. DR. MAZA ANSWERED AND STATED HE WOULD CALL ME BACK. AWAITING CALL BACK. Initialized on 06/02/20 18:11 - END OF NOTE 06/02/20 14:00 (created 06/02/20 18:08) Nursing Note by ARYA ELLISON PT WALKED PER STAND BY ASSIST. O2 AT 8L OXIMIZER SATS 94%. PT WALKED ON 6L O2, DOSE AT HOME, AT SATS DROPPED TO 85%. PT WALKED ABOUT 150 FEET. WHEN ARRIVED BACK AT ROOM, PT WAS WINDED AND SATS 79%. PT INCREASED BACK TO 8L AND SATS WENT UP TO 89-90% BUT TOOK A GOOD 5 MINUTES TO RECOVER. WILL REPORT TO DR. MAZA. Initialized on 06/02/20 18:08 - END OF NOTE - Vitals & Intake/Output Vital Signs: Vital Signs Temperature 98.4 F 06/03/20 04:00 Pulse Rate 77 06/03/20 06:42 Respiratory Rate 21 06/03/20 06:42 Blood Pressure 133/70 06/03/20 04:00 O2 Sat by Pulse Oximetry 93 L 06/03/20 06:42 Intake & Output: Intake & Output 05/31/20 06/01/20 06/02/20 06/03/20 11:59 11:59 11:59 11:59 Intake Total 1036 2110 Output Total 1620 3335 Balance -584 -1175 Weight 81.3 kg - Lab Result Diagrams: 06/02/20 04:52 06/02/20 04:45 Lab Results-Last 24 Hrs: Lab Results-Last 24 Hours 06/02/20 06/02/20 06/02/20 Range/Units 04:52 05:00 11:54 POC Glucometer 136 H (74 to 106) mg/dL Hemoglobin A1c 5.89 (4.5-6.0) % Slides for Path Review YES 06/02/20 06/02/20 Range/Units 16:37 23:21 POC Glucometer 135 H 308 H (74 to 106) mg/dL Hemoglobin A1c (4.5-6.0) % Slides for Path Review Micro Results-Entire Visit: Microbiology 06/01/20 14:45 Gram Stain - Final Sputum - Expectorant Sputum Culture - Preliminary GRAM NEGATIVE ID AND SENSITIVITY PENDING Accuchecks Date 06/02/20 Date 06/02/20 Time 17:01 Time 12:17 - Radiology Exams Ordered Rad Exams-Entire Visit: Radiology Procedures Category Date Time Status CHEST 2 VIEWS (PA AND LAT) Stat Exams 06/01/20 14:26 Completed - Procedures and Test Procedures and Tests throughout Hospitalization: Therapy Orders & Screens 06/01/20 15:34 Respiratory Therapy Assessment DAILY Comment: Diagnosis: right breast cancer 06/01/20 16:39 Respiratory Therapy Consult ROUTINE Comment: Reason For Exam: Diagnosis: right breast cancer 06/01/20 18:13 RT Screen per Nursing Assess ONCE Comment: Protocol Order Physician Instructions: Greater than 3 points order RT Admission Screen Reason For Exam: Triggered on Admission Diagnosis: COPD Diagnosis: COPD Pneumonia: No Home O2: Yes Asthma: No CHF: No Home CPAP/BIPAP: Yes Home Nebs/MDI: Yes Total Points: 15 06/01/20 18:18 Oxygen NASAL CANNULA 6 lpm Comment: Diagnosis: COPD Discharge Exam General Appearance: no apparent distress, alert Neurologic Exam: alert, oriented x 3, cooperative, normal mood/affect, nml cerebellar function, sensation nml, No motor deficits Eye Exam: PERRL, EOMI, eyes nml inspection Ears, Nose, Throat Exam: normal ENT inspection, pharynx normal, moist mucous membranes Neck Exam: normal inspection, non-tender, supple, full range of motion Respiratory Exam: normal breath sounds, lungs clear, No respiratory distress Cardiovascular Exam: regular rate/rhythm, normal heart sounds Gastrointestinal/Abdomen Exam: soft, No tenderness, No mass Male Genitalia Exam: deferred Rectal Exam: deferred Back Exam: normal inspection, normal range of motion, No CVA tenderness, No vertebral tenderness Extremity Exam: normal inspection, normal range of motion Skin Exam: normal color, warm, dry Final Diagnosis/Problem List - Final Discharge Diagnosis/Problem (1) Acute exacerbation of chronic obstructive airways disease Current Visit: Yes Status: Resolved Onset Date: ~07/29/18 Code(s): J44.1 - CHRONIC OBSTRUCTIVE PULMONARY DISEASE W (ACUTE) EXACERBATION (2) Viral illness Current Visit: Yes Status: Acute (3) GERD (gastroesophageal reflux disease) Current Visit: No Status: Chronic Code(s): K21.9 - GASTRO-ESOPHAGEAL REFLUX DISEASE WITHOUT ESOPHAGITIS (4) HTN (hypertension) Current Visit: No Status: Chronic Code(s): I10 - ESSENTIAL (PRIMARY) HYPERTENSION - Discharge Disposition: Home, Self-Care Condition: Stable Prescriptions: No Action Omeprazole 20 MG [Prilosec 20 mg] 20 mg PO BID Hydrochlorothiazide 25 mg [hydroDIURIL 25 MG] 12.5 mg PO DAILY Albuterol 2.5 mg/3 ml Neb [Proventil 2.5 mg/3 ml Neb] 2.5 mg IH Q6H Tiotropium [place] Inhaler [Spiriva 18 Mcg/Cap Inhaler] 2 puff IH QAM Aspirin 81 mg PO DAILY Metformin HCl 500 mg [Glucophage 500 MG] 500 mg PO BIDWM Nitroglycerin 0.4 mg Tablet [Nitrostat 0.4 MG Tablet] 0.4 mg SL Q5MIN PRN MR X 3 PRN PRN Reason: Chest Pain Latanoprost 1 drop OP HS Alprazolam 1 mg [Xanax 1 mg] 1 mg PO BID Theophylline Anhydrous 300 mg PO BID Budesonide/Formoterol Fumarate [Symbicort 80-4.5 Mcg Inhaler] 2 puffs IH BID Pramipexole Di-HCl [Pramipexole Dihydrochloride] 0.25 mg PO QHS Amlodipine Besylate 5 mg [Norvasc 5 mg] 2.5 mg PO DAILY Albuterol Common Canister [Ventolin Common Canister] 2 puff IH Q6HPRN PRN PRN Reason: Shortness Of Breath/Wheezing Isosorbide Mononitrate 60 mg [Imdur 60MG] 60 mg PO 12 Metoprolol Tartrate 25 mg [Lopressor 25MG Tab] 25 mg PO BID Polyvinyl Alcohol Tears [Artificial Tears 15 ML] 1 drop OP Q4H PRN PRN PRN Reason: dry eyes Rosuvastatin Calcium 20 mg PO HS Instructions: Chronic Obstructive Pulmonary Disease Follow up with: KRUPA MAZA MD [Primary Care Provider] - 06/10/20 10:15 am (at midnight )
[2020-06-03] MEDS: hydroDIURIL 25 MG PO SCH (10:35)
[2020-06-03] MEDS: ECOTRIN 81 MG PO SCH (10:35)
[2020-06-03] MEDS: Protonix 40MG Tablet PO SCH (10:35)
[2020-06-03] MEDS: XANAX 1 MG PO SCH (10:35)
[2020-06-03] MEDS: NORVASC 5 MG PO SCH (10:35)
[2020-06-03] MEDS: ROCEPHIN 1 Gm-D5w 50 ml Bag** 1 G/50 ML IVPB IV SCH (10:35)
[2020-06-03] MEDS: Imdur 60MG PO SCH (10:35)
[2020-06-03] MEDS: Lopressor 25MG Tab PO SCH (10:35)
[2020-06-03] MEDS: THEOPHYLLINE ER 24HR PO SCH (10:36)
[2020-06-03 11:51] VITALS: BP 127/66; PULSE 95; O2SAT 95
== END 2020-06-03 12:40 | disposition home or self-care (01) ==
LOC: ED 14:04 → MED SURG 16:55
PROVIDERS: ADMIT General Practice; ATTEND General Practice
DX: J44.1 Chronic obstructive pulmonary disease with (acute) exacerbation (principal); K21.9 Gastro-esophageal reflux disease without esophagitis; I10 Essential (primary) hypertension; Z11.59 Encounter for screening for other viral diseases; Z79.899 Other long term (current) drug therapy; B34.9 Viral infection, unspecified
CPT/HCPCS: 36000; 36415; 71046; 80053; 82805; 82947; 83036; 83690; 84484; 85025; 87040; 87070; 87077; 87186; 87631; 93005; 93041; 93268; 94640; 94762; 96365; 96374; 96375; 99285; G0378; U0003; J0456; J0696; J2405; J2920; J2930; J7609; A9270-GY

== ENCOUNTER 2020-11-04 15:42 | Observation (INO) | payer MEDICARE ==
--- NOTE | 2020-11-04 15:58 | ERPHSYRPT ---
- History of Present Illness Time Seen by Provider: 11/04/20 15:50 Physician History: Patient is a 75-year-old male who presents to our ED via EMS for evaluation and treatment of shortness of breath. Patient has a history of COPD requires 4 L oxygen 24 hours/day presents to our ED with shortness of breath. Shortness of breath progressive over the past day. No associated nausea or vomiting. No chest pain. Upon EMS arrival patient was found to be hypoxic in the high 80s. 125 mg of Solu-Medrol administered in route. Patient was started on albuterol facemask. O2 sat increased to 92%. Patient currently feels better. Patient has a resting tachycardia. No associated nausea or vomiting. No diaphoresis. Symptoms are progressive. Symptoms are moderate in intensity. No specific triggers known at this time. Patient voices no other complaints concerns at this time. Allergies/Adverse Reactions: nicotine [From [employer]] Allergy (Severe, Verified 07/29/18 11:04) Rash Home Medications: Albuterol 2.5 mg/3 ml Neb [Proventil 2.5 mg/3 ml Neb] 2.5 mg IH Q6H 02/04/14 [History] Aspirin 81 mg PO DAILY 02/04/14 [History] Hydrochlorothiazide 25 mg [hydroDIURIL 25 MG] 12.5 mg PO DAILY 02/04/14 [History] Metformin HCl 500 mg [Glucophage 500 MG] 500 mg PO BIDWM 02/04/14 [History] Omeprazole 20 MG [Prilosec 20 mg] 20 mg PO BID 02/04/14 [History] Tiotropium [place] Inhaler [Spiriva 18 Mcg/Cap Inhaler] 2 puff IH QAM 02/04/14 [History] Nitroglycerin 0.4 mg Tablet [Nitrostat 0.4 MG Tablet] 0.4 mg SL Q5MIN PRN MR X 3 PRN 08/01/16 [History] Latanoprost 1 drop OP HS 07/29/18 [History] ALPRAZolam 1 MG [Xanax 1 mg] 1 mg PO BID 10/14/18 [History] Budesonide/Formoterol Fumarate [Symbicort 80-4.5 Mcg Inhaler] 2 puffs IH BID 10/14/18 [History] Pramipexole Di-HCl [Pramipexole Dihydrochloride] 0.25 mg PO QHS 10/14/18 [Hist ory] Theophylline Anhydrous 300 mg PO BID 10/14/18 [History] Albuterol Common Canister [Ventolin Common Canister] 2 puff IH Q6HPRN PRN 06/01/20 [History] Amlodipine Besylate 5 mg [Norvasc 5 mg] 2.5 mg PO DAILY 06/01/20 [History] Isosorbide Mononitrate 60 mg [Imdur 60MG] 60 mg PO 12 06/01/20 [History] Metoprolol Tartrate 25 mg [Lopressor 25MG Tab] 25 mg PO BID 06/01/20 [History] Polyvinyl Alcohol Tears [Artificial Tears 15 ML] 1 drop OP Q4H PRN PRN 06/01/20 [History] Rosuvastatin Calcium 20 mg PO HS 06/01/20 [History] Hx Tetanus, Diphtheria Vaccination/Date Given: No Hx Influenza Vaccination/Date Given: Yes Hx Pneumococcal Vaccination/Date Given: Yes - Review of Systems All Other Systems: Unable due to condition - Past Medical History Pertinent Past Medical History: Yes Neurological History: No Pertinent History ENT History: No Pertinent History Cardiac History: Aneurysm, Hypertension Respiratory History: COPD, Sleep Apnea Endocrine Medical History: Diabetes Type II Musculoskeletal History: No Pertinent History GI Medical History: No Pertinent History, GERD History: No Pertinent History Psycho-Social History: Anxiety Male Reproductive Disorders: No Pertinent History Other Medical History: 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 Pt also states he had an increase of SOB and chest pain that he has seen Dr. Mallory for and he has been put on nitro. PT wears 2 L of oxygen at night and when he is resting during the day. - Past Surgical History Past Surgical History: Yes Neuro Surgical History: No Pertinent History Cardiac: No Pertinent History Respiratory: Other Gastrointestinal: Hernia Repair Genitourinary: No Pertinent History Musculoskeletal: Orthopedic Surgery Male Surgical History: Vasectomy Other Surgical History: BACK SURGERY, and ear surgery and a left lung biopsy. 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 - Social History Smoking Status: Former smoker How long have you smoked: 40 + Exposure to second hand smoke: No Drug Use: none Patient Lives Alone: No - Nursing Vital Signs Nursing Vital Signs: Initial Vital Signs Pulse Rate 120 H 11/04/20 15:42 Respiratory Rate 24 11/04/20 15:42 O2 Sat by Pulse Oximetry 92 L 11/04/20 15:42 Pain Scale Pain Intensity 0 - Physical Exam General Appearance: mild distress, alert Eye Exam: PERRL/EOMI, eyes nml inspection, No scleral icterus Ears, Nose, Throat Exam: hearing grossly normal, normal ENT inspection, normal pharynx Neck Exam: normal inspection, supple, full range of motion, No non-tender Respiratory Exam: respiratory distress, airway intact, wheezing Cardiovascular/Chest Exam: normal heart sounds, regular rate/rhythm Abdominal/Gastrointestinal Exam: soft, No tenderness, No distention, No mass Extremity Exam: non-tender, normal range of motion, normal inspection, no calf tenderness, no pedal edema Neurologic Exam: alert, oriented x 3, cooperative, government affairs fellow II-XII nml as tested, sensation nml, No motor deficits Skin Exam: normal color, warm, No dry Lymphatic Exam: No adenopathy SpO2 Interpretation: normal SpO2: 92 O2 Delivery: Aerosol Mask - Course Nursing assessment & vital signs reviewed: Yes EKG Interpreted by Me: RATE ([id number]), Sinus Tach, NORMAL AXIS, NORMAL INTERVALS - Radiology Exams Chest X-ray Interpretation: Teleradiologist Report (Portable chest demonstrates COPD with new bibasilar infiltrates versus atelectasis. Stable left lung suture material and left infrahilar calcified granuloma. Heart not enlarged. Bony th orax intact with mild osteopenia and degenerative changes.) - CT Exams Chest CT Interpretation: Tele-radiologist Report (07/29/2018 - for PE with stable diffuse emphysema, left midlung suture, mild by basilar infiltrate versus atelectasis. Nothing new. Per Dr. Suárez) Ordered Tests: Active Orders 24 hr Category Date Time Status Senior Cobol Developer STAT Care 11/04/20 15:48 Active EKG-ER Only STAT Care 11/04/20 15:47 Active IV Insertion STAT Care 11/04/20 15:47 Active Pulse Oximetry (ED) STAT Care 11/04/20 15:47 Active CHEST 1 VIEW (PORTABLE) Stat Exams 11/04/20 15:50 Completed CHEST WITH CONTRAST [CT] Stat Exams 11/04/20 16:27 Taken BLOOD CULTURE Stat Lab 11/04/20 17:44 Ordered CBC W DIFF Stat Lab 11/04/20 15:57 Completed D-DIMER QUANTITATIVE Stat Lab 11/04/20 15:57 Completed MAGNESIUM Stat Lab 11/04/20 15:50 Completed TROPONIN Q3H Lab 11/04/20 19:00 Ordered TROPONIN Q3H Lab 11/04/20 22:00 Ordered TROPONIN Q3H Lab 11/05/20 01:00 Ordered TROPONIN Q3H Lab 11/05/20 04:00 Ordered TROPONIN Urgent Lab 11/04/20 15:57 Completed UA W/RFX UR CULTURE Stat Lab 11/04/20 17:36 Ordered Urine Triage Profile Stat Lab 11/04/20 17:36 Ordered Transfer Order Routine Transfer 11/04/20 Ordered Medication Summary Generic Name Dose Route Start Last Admin Trade Name Freq PRN Reason Stop Dose Admin Ceftriaxone Sodium/Dextrose 2 g in 50 mls @ 100 mls/hr 11/04/20 17:44 11/04/20 17:55 Rocephin 2 Gm-D5w 50ml Bag IV 11/04/20 18:13 100 ml/hr STAT STA 100 mls/hr Administration Azithromycin / Sodium Chloride 250 mls @ 125 mls/hr 11/04/20 17:46 IV 11/04/20 19:45 STAT ONE Discontinued Medications Generic Name Dose Route Start Last Admin Trade Name Freq PRN Reason Stop Dose Admin Acyclovir Sodium 500 mg/ 100 mls @ 100 mls/hr 11/04/20 17:44 11/04/20 17:54 Dextrose IV 11/04/20 18:43 Not Given STAT ONE Ceftriaxone Sodium/Dextrose Confirm 11/04/20 17:52 Rocephin 2 Gm-D5w 50ml Bag Administered 11/04/20 17:53 Dose 2 g in 50 mls @ ud IV .STK-MED ONE Lab/Rad Data: Laboratory Result Diagrams 11/04/20 15:57 11/04/20 15:57 Laboratory Results 11/04/20 11/04/20 11/04/20 Range/Units 16:47 15:57 15:57 WBC (4.0-10.5) K/mm3 RBC (4.1-5.6) M/mm3 Hgb (12.5-18.0) gm/dl Hct (42-50) % MCV (78-100) fl MCH (26-32) pg MCHC (32-36) g/dl RDW (11.5-14.0) % Plt Count (150-450) K/mm3 MPV (7.5-11.0) fl Gran % (36.0-66.0) % Eos # (Auto) (0-0.5) Absolute Lymphs (auto) (1.0-4.6) Absolute Monos (auto) (0.0-1.3) Lymphocytes % (24.0-44.0) % Monocytes % (0.0-12.0) % Eosinophils % (0.00-5.0) % Basophils % (0.0-0.4) % Absolute Granulocytes (1.4-6.9) Basophils # (0-0.4) D-Dimer 911 H* (215-500) ng/mL Sodium Direct (138-146) mmol/L Potassium (3.5-4.9) mmol/L Chloride (98-109) mmol/L Carbon Dioxide (24-29) mmol/L Venous BUN (8-26) mg/dL Creatinine (0.6-1.3) mg/dL Glucose (70-105) mg/dL Ionized Calcium (1.12-1.32) mmol/L Magnesium (1.6-2.3) mg/dL Troponin I < 0.012 (0.000-0.034) ng/mL Influenza Type A Ag NEGATIVE (NEGATIVE) Influenza Type B Ag NEGATIVE (NEGATIVE) RSV (PCR) NEGATIVE (Negative) SARS-CoV-2 (PCR) NEGATIVE (NEGATIVE) 11/04/20 11/04/20 11/04/20 Range/Units 15:57 15:57 15:50 WBC 12.3 H (4.0-10.5) K/mm3 RBC 4.95 (4.1-5.6) M/mm3 Hgb 12.5 (12.5-18.0) gm/dl Hct 40.0 L (42-50) % MCV 80.8 (78-100) fl MCH 25.3 L (26-32) pg MCHC 31.3 L (32-36) g/dl RDW 15.5 H (11.5-14.0) % Plt Count 209 (150-450) K/mm3 MPV 9.2 (7.5-11.0) fl Gran % 82.0 H (36.0-66.0) % Eos # (Auto) 0.04 (0-0.5) Absolute Lymphs (auto) 1.21 (1.0-4.6) Absolute Monos (auto) 0.95 (0.0-1.3) Lymphocytes % 9.8 L (24.0-44.0) % Monocytes % 7.7 (0.0-12.0) % Eosinophils % 0.3 (0.00-5.0) % Basophils % 0.2 (0.0-0.4) % Absolute Granulocytes 10.08 H (1.4-6.9) Basophils # 0.03 (0-0.4) D-Dimer (215-500) ng/mL Sodium Direct 131 L (138-146) mmol/L Potassium 3.9 (3.5-4.9) mmol/L Chloride 92 L (98-109) mmol/L Carbon Dioxide 32 H (24-29) mmol/L Venous BUN 12 (8-26) mg/dL Creatinine 0.7 (0.6-1.3) mg/dL Glucose 143 H (70-105) mg/dL Ionized Calcium 1.09 L (1.12-1.32) mmol/L Magnesium Cancelled 1.9 (1.6-2.3) mg/dL Troponin I (0.000-0.034) ng/mL Influenza Type A Ag (NEGATIVE) Influenza Type B Ag (NEGATIVE) RSV (PCR) (Negative) SARS-CoV-2 (PCR) (NEGATIVE) - Progress Progress: improved Air Movement: fair Progress Note: Patient is a 75-year-old male presents to our ED with complaints of shortness of breath. Patient has history of COPD. Work-up reveals COPD exacerbation. Pat ient received Solu-Medrol 125 mg in route. Nebulizer treatment administered. Blood cultures obtained. Antibiotics infused. Rapid Covid negative. Patient covered by Dr. Ovalles. is primary. Patient will require admission for further evaluation and treatment. Plan of care discussed with patient. He agrees to admission [facility] for further evaluation and treatment of COPD exacerbation and shortness of breath. 11/04/20 18:05 Blood Culture(s) Obtained: Yes Antibiotics given: Yes Discussed with DrManuel: Mikey Will see patient in: hospital (observation) Counseled pt/family regarding: lab results, diagnosis, rad results - Departure Departure Disposition: Observation Clinical Impression: COPD exacerbation, Shortness of breath Condition: Stable Critical Care Time: No Referrals: KRUPA MAZA MD [Primary Care Provider] - Instructions: Chronic Obstructive Pulmonary Disease
[2020-11-04 15:59] LABS: Absolute Neutrophil Ct (ANC) 10.08 (1.4-6.9); BASOPHIL % 0.2 % (0.0-0.4); Basophil (Absolute #) 0.03 (0-0.4); Eosinophil % 0.3 % (0.00-5.0); Eosinophil (Absolute #) 0.04 (0-0.5); Hemoglobin 12.5 gm/dl (12.5-18.0); Lymphocyte (Absolute #) 1.21 (1.0-4.6); Lymphocytes % 9.8 % (24.0-44.0); Mean Cell Volume 80.8 fl (78-100); Mean Corpuscular Hemoglobin 25.3 pg (26-32); Mean Corpuscular Hgb Concent. 31.3 g/dl (32-36); Mean Platelet Volume 9.2 fl (7.5-11.0); Monocyte (Absolute #) 0.95 (0.0-1.3); Monocytes % 7.7 % (0.0-12.0); Platelet Count 209 K/mm3 (150-450); Red Blood Count 4.95 M/mm3 (4.1-5.6); Red Cell Distribution Width 15.5 % (11.5-14.0); White Blood Count 12.3 K/mm3 (4.0-10.5)
--- NOTE | 2020-11-04 16:25 | XRAY ---
Indication: Short of breath one week. Comparison: May 31, 2020. Portable chest again demonstrates COPD with new mild bibasilar infiltrates versus atelectasis. Stable left lung suture material and left infrahilar calcified granuloma. Heart not enlarged. Bony thorax intact again with mild osteopenia and degenerative changes.
[2020-11-04 16:53] LABS: ISTAT CREA 0.7 mg/dL (0.6-1.3)
[2020-11-04 17:33] LABS: INFLUENZA A NEGATIVE (NEGATIVE); INFLUENZA B NEGATIVE (NEGATIVE); RESPIRATORY SYNCTIAL VIRUS NEGATIVE (Negative)
[2020-11-04] MEDS ORDERED: Zovirax INJ*** 500 MG in D5w 100ML Mini Bag 100 ML 100 ML IV ONE (17:44)
[2020-11-04] MEDS ORDERED: ROCEPHIN 2 Gm-D5w 50ML BAG** 2 G/50 ML IVPB IV STA (17:44)
[2020-11-04] MEDS ORDERED: ZITHROMAX IV 500 MG*** 0 MG in Sodium Chloride 0.9% 250 ML 250 ML IV ONE (17:46)
[2020-11-04] MEDS ORDERED: ROCEPHIN 2 Gm-D5w 50ML BAG** 2 G/50 ML IVPB IV ONE (17:52)
[2020-11-04 18:23] LABS: Appearance CLEAR (CLEAR); Bilirubin NEGATIVE (NEGATIVE); Blood NEGATIVE Ery/ul (0-5); Glucose NEGATIVE (NEGATIVE); Ketones NEGATIVE (NEGATIVE); Leukocyte Esterase NEGATIVE (NEGATIVE); Nitrite NEGATIVE (NEGATIVE); Protein,Urine Dip NEGATIVE (Negative); Specific Gravity 1.024 (1.005-1.025); Urobilinogen 2 mg/dL (0-1)
[2020-11-04 18:41] LABS: Amphetamine,Urine NEGATIVE (NEGATIVE); Barbiturate,Urine NEGATIVE (NEGATIVE); Benzodiazepine,Urine POSITIVE (NEGATIVE); Cocaine,Urine NEGATIVE (NEGATIVE); Methadone,Urine NEGATIVE (NEGATIVE); Opiate,Urine NEGATIVE (NEGATIVE); PCP,Urine NEGATIVE (NEGATIVE); THC,Urine NEGATIVE (NEGATIVE)
[2020-11-04] MEDS ORDERED: PROVENTIL 2.5 MG/3 ML NEB IH ONE (19:06)
[2020-11-04] MEDS: PROVENTIL 2.5 MG/3 ML NEB IH SCH ×2 (19:12→22:58)
[2020-11-04] MEDS: Advair Hfa 230/21 Mcg COMMON CANISTER IH SCH (19:33)
[2020-11-04] MEDS ORDERED: Ativan 0.5 MG PO PRN (19:54)
[2020-11-04] MEDS: solu-MEDROL 125 MG IV SCH (20:08)
[2020-11-04] MEDS: THEOPHYLLINE ER 24HR PO SCH (22:11)
[2020-11-04] MEDS: Lopressor 25MG Tab PO SCH (22:12)
[2020-11-04] MEDS: Protonix 40MG Tablet PO SCH (22:12)
[2020-11-04] MEDS: ZOCOR 20MG PO SCH (22:12)
[2020-11-05] MEDS: solu-MEDROL 125 MG IV SCH ×4 (01:46→22:24)
[2020-11-05] MEDS: PROVENTIL 2.5 MG/3 ML NEB IH SCH ×6 (02:58→22:43)
[2020-11-05 04:54] LABS: Hematocrit 39.7 % (42-50); Hemoglobin 12.4 gm/dl (12.5-18.0); Mean Cell Volume 80.4 fl (78-100); Mean Corpuscular Hemoglobin 25.1 pg (26-32); Mean Corpuscular Hgb Concent. 31.2 g/dl (32-36); Mean Platelet Volume 9.5 fl (7.5-11.0); Platelet Count 197 K/mm3 (150-450); Red Blood Count 4.94 M/mm3 (4.1-5.6); Red Cell Distribution Width 15.4 % (11.5-14.0)
[2020-11-05 05:18] LABS: ALBUMIN 3.9 g/dL (3.5-5.0); ALKALINE PHOSPHATASE 47 U/L (38-126); ANION GAP 12.8 MEQ/L (5-15); BLOOD UREA NITROGEN 7 mg/dL (9-20); CHLORIDE 91 mmol/L (98-107); Calcium 9.3 mg/dL (8.4-10.2); Carbon Dioxide 31 mmol/L (22-30); Creatinine 1 0.48 mg/dL (0.66-1.25); EST GLOMERULAR FILTRATION RATE > 60.0 ML/MIN; Glucose 250 mg/dL (74-106); SGOT/AST 21 U/L (17-59); SGPT/ALT 21 U/L (0-50); SODIUM 131 mmol/L (137-145); Total Protein 6.8 g/dL (6.3-8.2)
[2020-11-05] MEDS: Advair Hfa 230/21 Mcg COMMON CANISTER IH SCH ×2 (06:55→19:36)
[2020-11-05] MEDS: Spiriva 18 Mcg/Cap Inhaler IH SCH (06:56)
[2020-11-05] MEDS ORDERED: Glucophage 500 MG PO SCH (08:00)
--- NOTE | 2020-11-05 08:41 | XRAY ---
Indication: Short of breath. Elevated d-dimer. COPD. Multiple contiguous axial images obtained through the chest using 100 cc Isovue 370 contrast and PE protocol. Comparison: July 29, 2018. There is good opacification of the pulmonary arteries to include the lobar and segmental branches. No pulmonary embolus. Heart is not enlarged. Aorta remains normal in course and caliber with minimal arteriosclerotic calcifications. Stable prominent mediastinal and right hilar lymph nodes again largest subcarinal today measuring 1.9 x 3.1 cm. Lungs again demonstrate diffuse pulmonary emphysema with scattered fibrosis/scarring and left mid lung suture material. There remains posterior bibasilar infiltrates versus atelectasis. No suspicious pulmonary mass/nodule, consolidation, or effusion. Bony thorax remains intact. Limited upper abdomen again demonstrates fatty liver. Impression: 1. Continued negative for pulmonary embolus. 2. Stable bibasilar infiltrates/atelectasis cysts. No new cardiopulmonary abnormalities. 3. Again incidental pulmonary emphysema, scattered fibrosis/scarring, left lung postsurgical changes, prominent mediastinal/right hilar lymph nodes, and fatty liver.
[2020-11-05] MEDS: Protonix 40MG Tablet PO SCH ×2 (10:12→22:24)
[2020-11-05] MEDS: Lopressor 25MG Tab PO SCH ×2 (10:12→22:23)
[2020-11-05] MEDS: THEOPHYLLINE ER 24HR PO SCH ×2 (10:12→22:25)
[2020-11-05] MEDS: HOLD METFORMIN PRODUCTS FOR 48 HOURS MC SCH (11:18)
[2020-11-05] MEDS ORDERED: Nitrostat 0.4 MG Tablet SL PRN (11:29)
[2020-11-05] MEDS ORDERED: Artificial Tears 15 ML OP PRN (11:29)
[2020-11-05] MEDS: NORVASC 5 MG PO SCH (11:43)
[2020-11-05] MEDS: XANAX 1 MG PO SCH ×2 (11:44→22:26)
[2020-11-05] MEDS: ECOTRIN 81 MG PO SCH (11:44)
[2020-11-05] MEDS: hydroDIURIL 25 MG PO SCH (11:44)
[2020-11-05] MEDS: Imdur 60MG PO SCH (11:44)
--- NOTE | 2020-11-05 12:23 | PCM.HP ---
History of Present Illness - Chief Complaint Chief Complaint: c/o shortness of breath for 2 days History of Present Illness: is a 75 year old malecame with worsening short of breath for 2 days. c/o cough with phlegm - Review of Systems Constitutional: No Fever, No Chills Eyes: No Symptoms Ears, Nose, & Throat: No Symptoms Respiratory: Cough, Orthopnea, Short Of Breath, Wheezing Cardiac: No Chest Pain, No Edema, No Syncope Abdominal/Gastrointestinal: No Abdominal Pain, No Nausea, No Vomiting, No Diarrhea Genitourinary Symptoms: No Dysuria Musculoskeletal: No Back Pain, No Neck Pain Skin: No Rash Neurological: No Dizziness, No Focal Weakness, No Sensory Changes Psychological: No Symptoms Endocrine: No Symptoms Hematologic/Lymphatic: No Symptoms Immunological/Allergic: No Symptoms Medications & Allergies Home Medications: Home Medication List Albuterol 2.5 mg/3 ml Neb [Proventil 2.5 mg/3 ml Neb] 1 neb IH Q6H 02/04/14 [History Confirmed 11/04/20] Aspirin 81 mg PO DAILY 02/04/14 [History Confirmed 11/04/20] Hydrochlorothiazide 25 mg [hydroDIURIL 25 MG] 12.5 mg PO DAILY 02/04/14 [History Confirmed 11/04/20] Metformin HCl 500 mg [Glucophage 500 MG] 500 mg PO BIDWM 02/04/14 [History Confirmed 11/04/20] Omeprazole 20 MG [Prilosec 20 mg] 20 mg PO BIDAC 02/04/14 [History Confirmed 11/04/20] Tiotropium [place] Inhaler [Spiriva 18 Mcg/Cap Inhaler] 2 puff IH DAILY 02/04/14 [History Confirmed 11/04/20] Nitroglycerin 0.4 mg Tablet [Nitrostat 0.4 MG Tablet] 0.4 mg SL Q5MIN PRN MR X 3 PRN 08/01/16 [History Confirmed 11/04/20] Latanoprost 1 drop OP HS 07/29/18 [History Confirmed 11/04/20] ALPRAZolam 1 MG [Xanax 1 mg] 1 mg PO BID 10/14/18 [History Confirmed 11/04/20] Budesonide/Formoterol Fumarate [Symbicort 80-4.5 Mcg Inhaler] 2 puffs IH BID 10/14/18 [History Confirmed 11/04/20] Pramipexole Di-HCl [Pramipexole Dihydrochloride] 0.25 mg PO QHS 10/14/18 [History Confirmed 11/04/20] Theophylline Anhydrous 300 mg PO BID 10/14/18 [History Confirmed 11/04/20] Albuterol Common Canister [Ventolin Common Canister] 2 puff IH Q6HPRN PRN 06/01/20 [History Confirmed 11/04/20] Amlodipine Besylate 5 mg [Norvasc 5 mg] 2.5 mg PO DAILY 06/01/20 [History Confirmed 11/04/20] Isosorbide Mononitrate 60 mg [Imdur 60MG] 60 mg PO DAILY 06/01/20 [History Confirmed 11/04/20] Metoprolol Tartrate 25 mg [Lopressor 25MG Tab] 25 mg PO BID 06/01/20 [History Confirmed 11/04/20] Polyvinyl Alcohol Tears [Artificial Tears 15 ML] 1 drop OP Q4H PRN PRN 06/01/20 [History Confirmed 11/04/20] Rosuvastatin Calcium 20 mg PO HS 06/01/20 [History Confirmed 11/04/20] Allergies/Adverse Reactions: Allergies Allergy/AdvReac Type Severity Reaction Status Date / Time nicotine [From Nicoderm ] Allergy Severe Rash Verified 11/04/20 18:45 - Past Medical History Past Medical History: Yes Neurological History: No Pertinent History ENT History: No Pertinent History Cardiac History: Aneurysm, Hypertension Respiratory History: COPD, Sleep Apnea Endocrine Medical History: Diabetes Type II Musculoskelatal History: No Pertinent History GI Medical History: No Pertinent History, GERD History: No Pertinent History Pyscho-Social History: Anxiety Male Reproductive Disorders: No Pertinent History Comment: 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 Pt also states he had an increase of SOB and chest pain that he has seen Dr. Mallory for and he has been put on nitro. PT wears 4L O2 AT ALL TIMES - Past Surgical History Past Surgical History: Yes Neuro Surgical History: No Pertinent History Cardiac History: No Pertinent History Respiratory Surgery: Other GI Surgical History: Hernia Repair Genitourinary Surgical Hx: No Pertinent History Musculskeletal Surgical Hx: Orthopedic Surgery Male Surgical History: Vasectomy Other Surgical History: BACK SURGERY, and ear surgery and a left lung biopsy. 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 - Social History Smoking Status: Former smoker How long have you smoked: 40 + Exposure to second hand smoke: No Alcohol: None Drug Use: none - Physical Exam Vital Signs: Vital Signs - 24 hr Temp Pulse Resp BP Pulse Ox 11/05/20 11:03 90 20 95 11/05/20 07:13 98.0 F 84 22 128/75 94 L 11/05/20 06:56 90 24 94 L 11/05/20 04:00 98.2 F 78 24 130/81 94 L 11/05/20 02:58 78 24 94 L 11/04/20 23:38 98.3 F 74 29 H 120/73 93 L 11/04/20 22:58 84 26 H 94 L 11/04/20 19:12 112 H 27 H 94 L 11/04/20 19:06 98.3 F 115 H 25 H 115/69 89 L 11/04/20 18:23 98.3 F 115 H 25 H 115/64 90 L 11/04/20 18:21 91 L 11/04/20 18:07 92 L 11/04/20 18:04 127 H 26 H 111/84 90 L 11/04/20 17:36 122 H 30 H 90 L 11/04/20 16:43 117 H 24 136/78 91 L 11/04/20 15:54 96 11/04/20 15:42 120 H 24 96 Oxygen-Last 24 hours Oxygen Flowrate (L/min)-RT 30 Oxygen Flowrate (L/min)-RT 30 General Appearance: no apparent distress, alert Neurologic Exam: alert, oriented x 3, cooperative, normal mood/affect, nml cerebellar function, nml station & gait, sensation nml, No motor deficits Eye Exam: PERRL/EOMI, eyes nml inspection Ears, Nose, Throat Exam: normal ENT inspection, TMs normal, pharynx normal, moist mucous membranes Neck Exam: normal inspection, non-tender, supple, full range of motion Respiratory Exam: respiratory distress, diminished breath sounds, crackles/rales, rhonchi, wheezing Cardiovascular Exam: regular rate/rhythm, normal heart sounds, normal peripheral pulses Gastrointestinal/Abdomen Exam: soft, normal bowel sounds, No tenderness, No mass Back Exam: normal inspection, normal range of motion, No CVA tenderness, No vertebral tenderness Extremity Exam: normal inspection, normal range of motion, pelvis stable Skin Exam: normal color, warm, dry, No rash Lymphatic Exam: No adenopathy Results - Labs Lab/Micro Results: Lab Results-Last 24 Hours 11/04/20 11/04/20 11/04/20 Range/Units 15:50 15:57 15:57 WBC 12.3 H (4.0-10.5) K/mm3 RBC 4.95 (4.1-5.6) M/mm3 Hgb 12.5 (12.5-18.0) gm/dl Hct 40.0 L (42-50) % MCV 80.8 (78-100) fl MCH 25.3 L (26-32) pg MCHC 31.3 L (32-36) g/dl RDW 15.5 H (11.5-14.0) % Plt Count 209 (150-450) K/mm3 MPV 9.2 (7.5-11.0) fl Gran % 82.0 H (36.0-66.0) % Eos # (Auto) 0.04 (0-0.5) Absolute Lymphs (auto) 1.21 (1.0-4.6) Absolute Monos (auto) 0.95 (0.0-1.3) Lymphocytes % 9.8 L (24.0-44.0) % Monocytes % 7.7 (0.0-12.0) % Eosinophils % 0.3 (0.00-5.0) % Basophils % 0.2 (0.0-0.4) % Absolute Granulocytes 10.08 H (1.4-6.9) Basophils # 0.03 (0-0.4) D-Dimer (215-500) ng/mL Sodium (137-145) mmol/L Sodium Direct 131 L (138-146) mmol/L Potassium 3.9 (3.5-4.9) mmol/L Chloride 92 L (98-109) mmol/L Carbon Dioxide 32 H (24-29) mmol/L Anion Gap (5-15) MEQ/L BUN (9-20) mg/dL Venous BUN 12 (8-26) mg/dL Creatinine 0.7 (0.6-1.3) mg/dL Estimated GFR ML/MIN Glucose 143 H (70-105) mg/dL Calcium (8.4-10.2) mg/dL Ionized Calcium 1.09 L (1.12-1.32) mmol/L Magnesium 1.9 Cancelled (1.6-2.3) mg/dL Total Bilirubin (0.2-1.3) mg/dL AST (17-59) U/L ALT (0-50) U/L Alkaline Phosphatase (38-126) U/L Troponin I (0.000-0.034) ng/mL Serum Total Protein (6.3-8.2) g/dL Albumin (3.5-5.0) g/dL Urine Color (YELLOW) Urine Appearance (CLEAR) Urine pH (5-6) Ur Specific [place] (1.005-1.025) Urine Protein (Negative) Urine Ketones (NEGATIVE) Urine Blood (0-5) Johan/ul Urine Nitrite (NEGATIVE) Urine Bilirubin (NEGATIVE) Urine Urobilinogen (0-1) mg/dL Ur Leukocyte Esterase (NEGATIVE) Urine WBC (Auto) (0-5) /HPF Urine RBC (Auto) (0-2) /HPF U Epithel Cells (Auto) (FEW) /HPF Urine Bacteria (Auto) (NEGATIVE) /HPF Urine Culture Reflexed (NO) Urine Glucose (NEGATIVE) mg/dL Urine Opiates Level (NEGATIVE) Ur Methadone (NEGATIVE) Urine Barbiturates (NEGATIVE) Ur Phencyclidine (PCP) (NEGATIVE) Urine Amphetamine (NEGATIVE) U Benzodiazepine Level (NEGATIVE) Urine Cocaine (NEGATIVE) Urine Marijuana (THC) (NEGATIVE) Influenza Type A Ag (NEGATIVE) Influenza Type B Ag (NEGATIVE) RSV (PCR) (Negative) SARS-CoV-2 (PCR) (NEGATIVE) 11/04/20 11/04/20 11/04/20 Range/Units 15:57 15:57 16:47 WBC (4.0-10.5) K/mm3 RBC (4.1-5.6) M/mm3 Hgb (12.5-18.0) gm/dl Hct (42-50) % MCV (78-100) fl MCH (26-32) pg MCHC (32-36) g/dl RDW (11.5-14.0) % Plt Count (150-450) K/mm3 MPV (7.5-11.0) fl Gran % (36.0-66.0) % Eos # (Auto) (0-0.5) Absolute Lymphs (auto) (1.0-4.6) Absolute Monos (auto) (0.0-1.3) Lymphocytes % (24.0-44.0) % Monocytes % (0.0-12.0) % Eosinophils % (0.00-5.0) % Basophils % (0.0-0.4) % Absolute Granulocytes (1.4-6.9) Basophils # (0-0.4) D-Dimer 911 H* (215-500) ng/mL Sodium (137-145) mmol/L Sodium Direct (138-146) mmol/L Potassium (3.5-4.9) mmol/L Chloride (98-109) mmol/L Carbon Dioxide (24-29) mmol/L Anion Gap (5-15) MEQ/L BUN (9-20) mg/dL Venous BUN (8-26) mg/dL Creatinine (0.6-1.3) mg/dL Estimated GFR ML/MIN Glucose (70-105) mg/dL Calcium (8.4-10.2) mg/dL Ionized Calcium (1.12-1.32) mmol/L Magnesium (1.6-2.3) mg/dL Total Bilirubin (0.2-1.3) mg/dL AST (17-59) U/L ALT (0-50) U/L Alkaline Phosphatase (38-126) U/L Troponin I < 0.012 (0.000-0.034) ng/mL Serum Total Protein (6.3-8.2) g/dL Albumin (3.5-5.0) g/dL Urine Color (YELLOW) Urine Appearance (CLEAR) Urine pH (5-6) Ur Specific [place] (1.005-1.025) Urine Protein (Negative) Urine Ketones (NEGATIVE) Urine Blood (0-5) Johan/ul Urine Nitrite (NEGATIVE) Urine Bilirubin (NEGATIVE) Urine Urobilinogen (0-1) mg/dL Ur Leukocyte Esterase (NEGATIVE) Urine WBC (Auto) (0-5) /HPF Urine RBC (Auto) (0-2) /HPF U Epithel Cells (Auto) (FEW) /HPF Urine Bacteria (Auto) (NEGATIVE) /HPF Urine Culture Reflexed (NO) Urine Glucose (NEGATIVE) mg/dL Urine Opiates Level (NEGATIVE) Ur Methadone (NEGATIVE) Urine Barbiturates (NEGATIVE) Ur Phencyclidine (PCP) (NEGATIVE) Urine Amphetamine (NEGATIVE) U Benzodiazepine Level (NEGATIVE) Urine Cocaine (NEGATIVE) Urine Marijuana (THC) (NEGATIVE) Influenza Type A Ag NEGATIVE (NEGATIVE) Influenza Type B Ag NEGATIVE (NEGATIVE) RSV (PCR) NEGATIVE (Negative) SARS-CoV-2 (PCR) NEGATIVE (NEGATIVE) 11/04/20 11/04/20 11/04/20 Range/Units 17:36 17:36 18:10 WBC (4.0-10.5) K/mm3 RBC (4.1-5.6) M/mm3 Hgb (12.5-18.0) gm/dl Hct (42-50) % MCV (78-100) fl MCH (26-32) pg MCHC (32-36) g/dl RDW (11.5-14.0) % Plt Count (150-450) K/mm3 MPV (7.5-11.0) fl Gran % (36.0-66.0) % Eos # (Auto) (0-0.5) Absolute Lymphs (auto) (1.0-4.6) Absolute Monos (auto) (0.0-1.3) Lymphocytes % (24.0-44.0) % Monocytes % (0.0-12.0) % Eosinophils % (0.00-5.0) % Basophils % (0.0-0.4) % Absolute Granulocytes (1.4-6.9) Basophils # (0-0.4) D-Dimer (215-500) ng/mL Sodium (137-145) mmol/L Sodium Direct (138-146) mmol/L Potassium (3.5-4.9) mmol/L Chloride (98-109) mmol/L Carbon Dioxide (24-29) mmol/L Anion Gap (5-15) MEQ/L BUN (9-20) mg/dL Venous BUN (8-26) mg/dL Creatinine (0.6-1.3) mg/dL Estimated GFR ML/MIN Glucose (70-105) mg/dL Calcium (8.4-10.2) mg/dL Ionized Calcium (1.12-1.32) mmol/L Magnesium (1.6-2.3) mg/dL Total Bilirubin (0.2-1.3) mg/dL AST (17-59) U/L ALT (0-50) U/L Alkaline Phosphatase (38-126) U/L Troponin I < 0.012 (0.000-0.034) ng/mL Serum Total Protein (6.3-8.2) g/dL Albumin (3.5-5.0) g/dL Urine Color YELLOW (YELLOW) Urine Appearance CLEAR (CLEAR) Urine pH 7.0 (5-6) Ur Specific [place] 1.024 (1.005-1.025) Urine Protein NEGATIVE (Negative) Urine Ketones NEGATIVE (NEGATIVE) Urine Blood NEGATIVE (0-5) Johan/ul Urine Nitrite NEGATIVE (NEGATIVE) Urine Bilirubin NEGATIVE (NEGATIVE) Urine Urobilinogen 2 (0-1) mg/dL Ur Leukocyte Esterase NEGATIVE (NEGATIVE) Urine WBC (Auto) NONE (0-5) /HPF Urine RBC (Auto) NONE (0-2) /HPF U Epithel Cells (Auto) NONE (FEW) /HPF Urine Bacteria (Auto) NONE (NEGATIVE) /HPF Urine Culture Reflexed NO (NO) Urine Glucose NEGATIVE (NEGATIVE) mg/dL Urine Opiates Level NEGATIVE (NEGATIVE) Ur Methadone NEGATIVE (NEGATIVE) Urine Barbiturates NEGATIVE (NEGATIVE) Ur Phencyclidine (PCP) NEGATIVE (NEGATIVE) Urine Amphetamine NEGATIVE (NEGATIVE) U Benzodiazepine Level POSITIVE (NEGATIVE) Urine Cocaine NEGATIVE (NEGATIVE) Urine Marijuana (THC) NEGATIVE (NEGATIVE) Influenza Type A Ag (NEGATIVE) Influenza Type B Ag (NEGATIVE) RSV (PCR) (Negative) SARS-CoV-2 (PCR) (NEGATIVE) 11/04/20 11/05/20 11/05/20 Range/Units 22:00 04:40 04:40 WBC 6.0 (4.0-10.5) K/mm3 RBC 4.94 (4.1-5.6) M/mm3 Hgb 12.4 L (12.5-18.0) gm/dl Hct 39.7 L (42-50) % MCV 80.4 (78-100) fl MCH 25.1 L (26-32) pg MCHC 31.2 L (32-36) g/dl RDW 15.4 H (11.5-14.0) % Plt Count 197 (150-450) K/mm3 MPV 9.5 (7.5-11.0) fl Gran % (36.0-66.0) % Eos # (Auto) (0-0.5) Absolute Lymphs (auto) (1.0-4.6) Absolute Monos (auto) (0.0-1.3) Lymphocytes % (24.0-44.0) % Monocytes % (0.0-12.0) % Eosinophils % (0.00-5.0) % Basophils % (0.0-0.4) % Absolute Granulocytes (1.4-6.9) Basophils # (0-0.4) D-Dimer (215-500) ng/mL Sodium 131 L (137-145) mmol/L Sodium Direct (138-146) mmol/L Potassium 4.0 (3.5-4.9) mmol/L Chloride 91 L (98-109) mmol/L Carbon Dioxide 31 H (24-29) mmol/L Anion Gap 12.8 (5-15) MEQ/L BUN 7 L (9-20) mg/dL Venous BUN (8-26) mg/dL Creatinine 0.48 L (0.6-1.3) mg/dL Estimated GFR > 60.0 ML/MIN Glucose 250 H (70-105) mg/dL Calcium 9.3 (8.4-10.2) mg/dL Ionized Calcium (1.12-1.32) mmol/L Magnesium (1.6-2.3) mg/dL Total Bilirubin 0.80 (0.2-1.3) mg/dL AST 21 (17-59) U/L ALT 21 (0-50) U/L Alkaline Phosphatase 47 (38-126) U/L Troponin I < 0.012 (0.000-0.034) ng/mL Serum Total Protein 6.8 (6.3-8.2) g/dL Albumin 3.9 (3.5-5.0) g/dL Urine Color (YELLOW) Urine Appearance (CLEAR) Urine pH (5-6) Ur Specific [place] (1.005-1.025) Urine Protein (Negative) Urine Ketones (NEGATIVE) Urine Blood (0-5) Johan/ul Urine Nitrite (NEGATIVE) Urine Bilirubin (NEGATIVE) Urine Urobilinogen (0-1) mg/dL Ur Leukocyte Esterase (NEGATIVE) Urine WBC (Auto) (0-5) /HPF Urine RBC (Auto) (0-2) /HPF U Epithel Cells (Auto) (FEW) /HPF Urine Bacteria (Auto) (NEGATIVE) /HPF Urine Culture Reflexed (NO) Urine Glucose (NEGATIVE) mg/dL Urine Opiates Level (NEGATIVE) Ur Methadone (NEGATIVE) Urine Barbiturates (NEGATIVE) Ur Phencyclidine (PCP) (NEGATIVE) Urine Amphetamine (NEGATIVE) U Benzodiazepine Level (NEGATIVE) Urine Cocaine (NEGATIVE) Urine Marijuana (THC) (NEGATIVE) Influenza Type A Ag (NEGATIVE) Influenza Type B Ag (NEGATIVE) RSV (PCR) (Negative) SARS-CoV-2 (PCR) (NEGATIVE) - Radiology Impressions Radiology Exams & Impressions: Radiology Procedures Category Date Time Status CHEST 1 VIEW (PORTABLE) Stat Exams 11/04/20 15:50 Completed CHEST WITH CONTRAST [CT] Stat Exams 11/04/20 16:[address]/CHEST WITH CONTRAST Indication: Short of breath. Elevated d-dimer. COPD. Multiple contiguous axial images obtained through the chest using 100 cc Isovue 370 contrast and PE protocol. Comparison: July 29, 2018. There is good opacification of the pulmonary arteries to include the lobar and segmental branches. No pulmonary embolus. Heart is not enlarged. Aorta remains normal in course and caliber with minimal arteriosclerotic calcifications. Stable prominent mediastinal and right hilar lymph nodes again largest subcarinal today measuring 1.9 x 3.1 cm. Lungs again demonstrate diffuse pulmonary emphysema with scattered fibrosis/scarring and left mid lung suture material. There remains posterior bibasilar infiltrates versus atelectasis. No suspicious pulmonary mass/nodule, consolidation, or effusion. Bony thorax remains intact. Limited upper abdomen again demonstrates fatty liver. Impression: 1. Continued negative for pulmonary embolus. 2. Stable bibasilar infiltrates/atelectasis cysts. No new cardiopulmonary abnormalities. 3. Again incidental pulmonary emphysema, scattered fibrosis/scarring, left lung postsurgical changes, prominent mediastinal/right hilar lymph nodes, and fatty liver. - Other Procedures and Tests Respiratory Therapy 11/04/20 20:18 Oxygen High Flow per RT 50% Respiratory Therapy Assessment DAILY Assessment/Plan (1) COPD exacerbation Current Visit: Yes Status: Acute Assessment & Plan: Laboratory Results - last 24 hr 11/04/20 11/04/20 11/04/20 15:50 15:57 15:57 WBC 12.3 H RBC 4.95 Hgb 12.5 Hct 40.0 L MCV 80.8 MCH 25.3 L MCHC 31.3 L RDW 15.5 H Plt Count 209 MPV 9.2 Gran % 82.0 H Eos # (Auto) 0.04 Absolute Lymphs (auto) 1.21 Absolute Monos (auto) 0.95 Lymphocytes % 9.8 L Monocytes % 7.7 Eosinophils % 0.3 Basophils % 0.2 Absolute Granulocytes 10.08 H Basophils # 0.03 D-Dimer Sodium Sodium Direct 131 L Potassium 3.9 Chloride 92 L Carbon Dioxide 32 H Anion Gap BUN Venous BUN 12 Creatinine 0.7 Estimated GFR Glucose 143 H Calcium Ionized Calcium 1.09 L Magnesium 1.9 Cancelled Total Bilirubin AST ALT Alkaline Phosphatase Troponin I Serum Total Protein Albumin Urine Color Urine Appearance Urine pH Ur Specific [place] Urine Protein Urine Ketones Urine Blood Urine Nitrite Urine Bilirubin Urine Urobilinogen Ur Leukocyte Esterase Urine WBC (Auto) Urine RBC (Auto) U Epithel Cells (Auto) Urine Bacteria (Auto) Urine Culture Reflexed Urine Glucose Urine Opiates Level Ur Methadone Urine Barbiturates Ur Phencyclidine (PCP) Urine Amphetamine U Benzodiazepine Level Urine Cocaine Urine Marijuana (THC) Influenza Type A Ag Influenza Type B Ag RSV (PCR) SARS-CoV-2 (PCR) 11/04/20 11/04/20 11/04/20 15:57 15:57 16:47 WBC RBC Hgb Hct MCV MCH MCHC RDW Plt Count MPV Gran % Eos # (Auto) Absolute Lymphs (auto) Absolute Monos (auto) Lymphocytes % Monocytes % Eosinophils % Basophils % Absolute Granulocytes Basophils # D-Dimer 911 H* Sodium Sodium Direct Potassium Chloride Carbon Dioxide Anion Gap BUN Venous BUN Creatinine Estimated GFR Glucose Calcium Ionized Calcium Magnesium Total Bilirubin AST ALT Alkaline Phosphatase Troponin I < 0.012 Serum Total Protein Albumin Urine Color Urine Appearance Urine pH Ur Specific [place] Urine Protein Urine Ketones Urine Blood Urine Nitrite Urine Bilirubin Urine Urobilinogen Ur Leukocyte Esterase Urine WBC (Auto) Urine RBC (Auto) U Epithel Cells (Auto) Urine Bacteria (Auto) Urine Culture Reflexed Urine Glucose Urine Opiates Level Ur Methadone Urine Barbiturates Ur Phencyclidine (PCP) Urine Amphetamine U Benzodiazepine Level Urine Cocaine Urine Marijuana (THC) Influenza Type A Ag NEGATIVE Influenza Type B Ag NEGATIVE RSV (PCR) NEGATIVE SARS-CoV-2 (PCR) NEGATIVE 11/04/20 11/04/20 11/04/20 17:36 17:36 18:10 WBC RBC Hgb Hct MCV MCH MCHC RDW Plt Count MPV Gran % Eos # (Auto) Absolute Lymphs (auto) Absolute Monos (auto) Lymphocytes % Monocytes % Eosinophils % Basophils % Absolute Granulocytes Basophils # D-Dimer Sodium Sodium Direct Potassium Chloride Carbon Dioxide Anion Gap BUN Venous BUN Creatinine Estimated GFR Glucose Calcium Ionized Calcium Magnesium Total Bilirubin AST ALT Alkaline Phosphatase Troponin I < 0.012 Serum Total Protein Albumin Urine Color YELLOW Urine Appearance CLEAR Urine pH 7.0 Ur Specific [place] 1.024 Urine Protein NEGATIVE Urine Ketones NEGATIVE Urine Blood NEGATIVE Urine Nitrite NEGATIVE Urine Bilirubin NEGATIVE Urine Urobilinogen 2 Ur Leukocyte Esterase NEGATIVE Urine WBC (Auto) NONE Urine RBC (Auto) NONE U Epithel Cells (Auto) NONE Urine Bacteria (Auto) NONE Urine Culture Reflexed NO Urine Glucose NEGATIVE Urine Opiates Level NEGATIVE Ur Methadone NEGATIVE Urine Barbiturates NEGATIVE Ur Phencyclidine (PCP) NEGATIVE Urine Amphetamine NEGATIVE U Benzodiazepine Level POSITIVE Urine Cocaine NEGATIVE Urine Marijuana (THC) NEGATIVE Influenza Type A Ag Influenza Type B Ag RSV (PCR) SARS-CoV-2 (PCR) 11/04/20 11/05/20 11/05/20 22:00 04:40 04:40 WBC 6.0 RBC 4.94 Hgb 12.4 L Hct 39.7 L MCV 80.4 MCH 25.1 L MCHC 31.2 L RDW 15.4 H Plt Count 197 MPV 9.5 Gran % Eos # (Auto) Absolute Lymphs (auto) Absolute Monos (auto) Lymphocytes % Monocytes % Eosinophils % Basophils % Absolute Granulocytes Basophils # D-Dimer Sodium 131 L Sodium Direct Potassium 4.0 Chloride 91 L Carbon Dioxide 31 H Anion Gap 12.8 BUN 7 L Venous BUN Creatinine 0.48 L Estimated GFR > 60.0 Glucose 250 H Calcium 9.3 Ionized Calcium Magnesium Total Bilirubin 0.80 AST 21 ALT 21 Alkaline Phosphatase 47 Troponin I < 0.012 Serum Total Protein 6.8 Albumin 3.9 Urine Color Urine Appearance Urine pH Ur Specific [place] Urine Protein Urine Ketones Urine Blood Urine Nitrite Urine Bilirubin Urine Urobilinogen Ur Leukocyte Esterase Urine WBC (Auto) Urine RBC (Auto) U Epithel Cells (Auto) Urine Bacteria (Auto) Urine Culture Reflexed Urine Glucose Urine Opiates Level Ur Methadone Urine Barbiturates Ur Phencyclidine (PCP) Urine Amphetamine U Benzodiazepine Level Urine Cocaine Urine Marijuana (THC) Influenza Type A Ag Influenza Type B Ag RSV (PCR) SARS-CoV-2 (PCR) Code(s): J44.1 - CHRONIC OBSTRUCTIVE PULMONARY DISEASE W (ACUTE) EXACERBATION (2) SOB (shortness of breath) Current Visit: Yes Status: Acute Assessment & Plan: Medication Adminisitration Report Albuterol Sulfate (Proventil 2.5 Mg/3 Ml Neb) 2.5 mg IH Q4HRT FAHEEM Stop: 12/04/20 18:59 Last Admin: 11/05/20 10:54 Dose: 2.5 mg Documented by: MYRA Nebulizer Treatment Document 11/05/20 10:54 DP (Rec: 11/05/20 10:59 DP [email or web address]) Therapy Aerosol Therapy Subsequent Aerosol Therapy Treatment Method Nebulizer,Mask Treatment Tolerance Good Admin: 11/05/20 06:55 Dose: 2.5 mg Documented by: [email or web address] Nebulizer Treatment Document 11/05/20 06:55 SH (Rec: 11/05/20 06:55 [email or web address] Therapy Aerosol Therapy Subsequent Aerosol Therapy Treatment Method Nebulizer,Mask Treatment Tolerance Excellent Admin: 11/05/20 02:58 Dose: 2.5 mg Documented by: Quvium Nebulizer Treatment Document 11/05/20 02:58 MP (Rec: 11/05/20 02:58 MP [email or web address]) Therapy Aerosol Therapy Initial Aerosol Therapy Treatment Method Nebulizer,Mask Treatment Tolerance Good Admin: 11/04/20 22:58 Dose: 2.5 mg Documented by: Quvium Nebulizer Treatment Document 11/04/20 22:58 MP (Rec: 11/04/20 22:58 MP [email or web address]) Therapy Aerosol Therapy Subsequent Aerosol Therapy Treatment Method Nebulizer,Mask Treatment Tolerance Good Admin: 11/04/20 19:12 Dose: 2.5 mg Documented by: Quvium Nebulizer Treatment Document 11/04/20 19:12 MP (Rec: 11/04/20 19:14 MP [email or web address]) Therapy Aerosol Therapy Initial Aerosol Therapy Treatment Method Nebulizer,Mask Treatment Tolerance Good Supplies Nebulizer Yes Aerosal Mask Yes Alprazolam (Xanax 1 Mg) 1 mg PO BID [facility] Stop: 12/05/20 11:59 Last Admin: 11/05/20 11:44 Dose: 1 mg Documented by: CASSANDRA Amlodipine Besylate (Norvasc 5 Mg) 2.5 mg PO DAILY [facility] Stop: 12/05/20 09:59 Last Admin: 11/05/20 11:43 Dose: 2.5 mg Documented by: CASSANDRA Artificial Tears (Artificial Tears 15 Ml) 0 ml OP Q4H PRN PRN PRN Reason: dry eyes Stop: 12/05/20 11:28 Aspirin (Ecotrin 81 Mg) 81 mg PO DAILY [facility] Stop: 12/05/20 11:59 Last Admin: 11/05/20 11:44 Dose: 81 mg Documented by: CASSANDRA Hydrochlorothiazide (Hydrodiuril 25 Mg) 12.5 mg PO DAILY [facility] Stop: 12/05/20 11:59 Last Admin: 11/05/20 11:44 Dose: 12.5 mg Documented by: SIMONARO Isosorbide Mononitrate (Imdur 60mg) 60 mg PO DAILY [facility] Stop: 12/05/20 11:59 Last Admin: 11/05/20 11:44 Dose: 60 mg Documented by: CASSANDRA Latanoprost (Xalatan) 0 ml OP HS [facility] Stop: 12/05/20 21:59 Lorazepam (Ativan 0.5 Mg) 0.5 mg PO Q8H PRN PRN PRN Reason: ANXIETY Stop: 12/04/20 19:53 Last Admin: 11/04/20 20:09 Dose: 0.5 mg Documented by: GILLES Metformin HCl (Glucophage 500 Mg) 500 mg PO BIDWM [facility] Stop: 12/07/20 07:59 Methylprednisolone Sodium Succinate (Solu-Medrol 125 Mg) 125 mg IV Q6H [facility] Stop: 12/04/20 19:59 Last Admin: 11/05/20 08:04 Dose: 125 mg Documented by: Admin: 11/05/20 01:46 Dose: 125 mg Documented by: Admin: 11/04/20 20:08 Dose: 125 mg Documented by: GILLES Metoprolol Tartrate (Lopressor 25mg Tab) 25 mg PO BID [facility] Stop: 12/04/20 21:59 Last Admin: 11/05/20 10:12 Dose: 25 mg Documented by: Admin: 11/04/20 22:12 Dose: 25 mg Documented by: GILLES Nitroglycerin (Nitrostat 0.4 Mg Tablet) 0.4 mg SL Q5MIN PRN MR X 3 PRN PRN Reason: CHEST PAIN Stop: 12/05/20 11:28 Non-Formulary Medication (Hold Metformin Products For 48 Hours) 1 each MC DAILY [facility] Stop: 11/06/20 10:01 Last Admin: 11/05/20 11:18 Dose: Not Given Documented by: CASSANDRA Non-Admin Reason: hold post CT Pantoprazole Sodium (Protonix 40mg Tablet) 40 mg PO BID [facility] Stop: 12/04/20 21:59 Last Admin: 11/05/20 10:12 Dose: 40 mg Documented by: Admin: 11/04/20 22:12 Dose: 40 mg Documented by: GILLES Pramipexole Dihydrochloride (Mirapex 0.5 Mg Tablet) 0.25 mg PO QHS [facility] Stop: 12/05/20 21:59 Fluticasone/Salmeterol (Advair Hfa 230/21 Mcg Common Canister*) 2 puff IH BIDRT [facility] Stop: 12/04/20 18:59 Last Admin: 11/05/20 06:55 Dose: 2 puff Documented by: ANGEL Ambriz MDI Document 11/05/20 06:55 SH (Rec: 11/05/20 06:56 SH [email or web address]) MDI MDI Initial MDI Advair 230 2 Puffs Spacer Used Yes Rinsed Mouth After MDI-RT Yes Admin: 11/04/20 19:33 Dose: 2 puff Documented by: FANG Ambriz MDI Document 11/04/20 19:33 MP (Rec: 11/04/20 19:33 MP [email or web address]) MDI MDI Initial MDI Advair 230 2 Puffs Spacer Used Yes Rinsed Mouth After MDI-RT Yes Supplies Spacer Yes Simvastatin (Zocor 20mg) 40 mg PO HS FAHEEM Stop: 12/04/20 21:59 Last Admin: 11/04/20 22:12 Dose: 40 mg Documented by: GILLES Theophylline (Theophylline Er 24hr) 300 mg PO BID FAHEEM Stop: 12/04/20 21:59 Last Admin: 11/05/20 10:12 Dose: 300 mg Documented by: Admin: 11/04/20 22:11 Dose: 300 mg Documented by: GILLES Tiotropium [place] (Spiriva 18 Mcg/Cap Inhaler) 1 ea IH DAILY FAHEEM Stop: 12/05/20 09:59 Last Admin: 11/05/20 06:56 Dose: 1 ea Documented by: ANGEL MDI Document 11/05/20 06:56 SH (Rec: 11/05/20 06:56 [email or web address]) MDI MDI Initial MDI Spacer Used Yes Rinsed Mouth After MDI Yes Discontinued Medications Albuterol Sulfate (Proventil 2.5 Mg/3 Ml Neb) Confirm Administered Dose 2.5 mg IH .STK-MED ONE Stop: 11/04/20 19:07 Ceftriaxone Sodium/Dextrose (Rocephin 2 Gm-D5w 50ml Bag) 2 g in 50 mls @ 100 mls/hr IV STAT STA Stop: 11/04/20 18:13 Last Admin: 11/04/20 17:55 Dose: 100 ml/hr, 100 mls/hr Documented by: GENNARO ED IV Start & Stop Times Document 11/04/20 17:55 (Rec: 11/04/20 17:56 [id number]) IV Infusion First Hour (1XONLY) (IVPB) IV Infusion Start Date 11/04/20 Med Admininistration (IV,IVP) Document 11/04/20 17:55 (Rec: 11/04/20 17:56 [id number]) Type of Administration Initial IV Push No Infusion/Titration Document 11/04/20 17:55 (Rec: 11/04/20 17:56 [id number]) Dosing & Rate Titration Dose 100 IV Rate 100 Increase/Decrease Started IV Intake Container Volume 50 Volume Adjustment/Waste 0 Acyclovir Sodium 500 mg/ (Dextrose) 100 mls @ 100 mls/hr IV STAT ONE Stop: 11/04/20 18:43 Last Admin: 11/04/20 17:54 Dose: Not Given Documented by: GENNARO Non-Admin Reason: Wrong Patient Med Admininistration (IV,IVP) Document 11/04/20 17:54 (Rec: 11/04/20 17:55 [id number]) Type of Administration Initial IV Push No Azithromycin / Sodium Chloride 250 mls @ 125 mls/hr IV STAT ONE Stop: 11/04/20 19:45 Ceftriaxone Sodium/Dextrose (Rocephin 2 Gm-D5w 50ml Bag) Confirm Administered Dose 2 g in 50 mls @ ud IV .STK-MED ONE Stop: 11/04/20 17:53 Metformin HCl (Glucophage 500 Mg) 500 mg PO BIDWM FAHEEM Stop: 12/05/20 07:59 Last Admin: 11/05/20 07:59 Dose: Not Given Documented by: CASSANDRA Non-Admin Reason: Had CT 11/04/20 Code(s): R06.02 - SHORTNESS OF BREATH (3) Hypoxia Current Visit: No Status: Acute Code(s): R09.02 - HYPOXEMIA (4) Diabetes Current Visit: Yes Status: Chronic Qualifiers: Diabetes mellitus type: type 2 Diabetes mellitus rn long term care insulin use: without rn long term care use Diabetes mellitus complication status: with hyperglycemia Qualified Code(s): E11.65 - Type 2 diabetes mellitus with hyperglycemia Code(s): E11.9 - TYPE 2 DIABETES MELLITUS WITHOUT COMPLICATIONS (5) GERD (gastroesophageal reflux disease) Current Visit: Yes Status: Chronic Qualifiers: Esophagitis presence: without esophagitis Code(s): K21.9 - GASTRO-ESOPHAGEAL REFLUX DISEASE WITHOUT ESOPHAGITIS
[2020-11-05] MEDS ORDERED: HUMALOG SQ PRN (13:05)
[2020-11-05] MEDS: ROCEPHIN 1 Gm-D5w 50 ml Bag** 1 G/50 ML IVPB IV SCH (13:11)
[2020-11-05] MEDS: Zithromax 500 MG/ 250 ML NaCl Premix 500 MG/250 ML IVPB IV SCH (13:21)
[2020-11-05] MEDS ORDERED: NON-FORMULARY ITEM (Pramipexole Di-Hcl [Pramipexole Dihydrochloride] 0.25 MG) PO SCH (22:00)
[2020-11-05] MEDS: Mirapex 0.5 MG Tablet PO SCH (22:23)
[2020-11-05] MEDS: Xalatan OP SCH (22:25)
[2020-11-05] MEDS: ZOCOR 20MG PO SCH (22:26)
[2020-11-06] MEDS: PROVENTIL 2.5 MG/3 ML NEB IH SCH ×6 (03:33→23:48)
[2020-11-06] MEDS: solu-MEDROL 125 MG IV SCH ×3 (06:39→21:33)
[2020-11-06] MEDS: Spiriva 18 Mcg/Cap Inhaler IH SCH (06:45)
[2020-11-06] MEDS: Advair Hfa 230/21 Mcg COMMON CANISTER IH SCH ×2 (06:45→19:27)
[2020-11-06] MEDS: Zithromax 500 MG/ 250 ML NaCl Premix 500 MG/250 ML IVPB IV SCH (09:30)
[2020-11-06] MEDS: THEOPHYLLINE ER 24HR PO SCH ×2 (09:30→21:33)
[2020-11-06] MEDS: ROCEPHIN 1 Gm-D5w 50 ml Bag** 1 G/50 ML IVPB IV SCH (09:30)
[2020-11-06] MEDS: hydroDIURIL 25 MG PO SCH (09:32)
[2020-11-06] MEDS: Lopressor 25MG Tab PO SCH ×2 (09:32→21:32)
[2020-11-06] MEDS: ECOTRIN 81 MG PO SCH (09:33)
[2020-11-06] MEDS: NORVASC 5 MG PO SCH (09:33)
[2020-11-06] MEDS: Protonix 40MG Tablet PO SCH ×2 (09:33→21:33)
[2020-11-06] MEDS: Imdur 60MG PO SCH (09:34)
[2020-11-06] MEDS: XANAX 1 MG PO SCH ×2 (09:34→21:34)
[2020-11-06] MEDS: HOLD METFORMIN PRODUCTS FOR 48 HOURS MC SCH (09:35)
[2020-11-06] MEDS ORDERED: NON-FORMULARY ITEM (Aspirin [Aspirin] 81 MG) PO SCH (10:00)
--- NOTE | 2020-11-06 10:21 | PCM.NOTE ---
Date and Time: 11/06/20 1019 Subjective Assessment: doing better today - Review of Systems Constitutional: No Fever, No Chills Eyes: No Symptoms Ears, Nose, & Throat: No Symptoms Respiratory: Orthopnea, Short Of Breath, Wheezing, No Cough Cardiac: No Chest Pain, No Edema, No Syncope Abdominal/Gastrointestinal: No Abdominal Pain, No Nausea, No Vomiting, No Diarrhea Genitourinary Symptoms: No Dysuria Musculoskeletal: No Back Pain, No Neck Pain Skin: No Rash Neurological: No Dizziness, No Focal Weakness, No Sensory Changes Psychological: No Symptoms Endocrine: No Symptoms Hematologic/Lymphatic: No Symptoms Immunological/Allergic: No Symptoms Objective Exam General Appearance: mild distress, alert Neurologic Exam: alert, oriented x 3, cooperative, normal mood/affect, nml cerebellar function, sensation nml, No motor deficits Skin Exam: normal color, warm, dry Eye Exam: PERRL, EOMI, eyes nml inspection Ears, Nose, Throat Exam: normal ENT inspection, pharynx normal, moist mucous membranes Neck Exam: normal inspection, non-tender, supple, full range of motion Respiratory Exam: diminished breath sounds, rhonchi, No respiratory distress Cardiovascular Exam: regular rate/rhythm, normal heart sounds Gastrointestinal/Abdomen Exam: soft, No tenderness, No mass Extremity Exam: normal inspection, normal range of motion Back Exam: normal inspection, normal range of motion, No CVA tenderness, No vertebral tenderness Male Genitalia Exam: deferred Rectal Exam: deferred OBJECTIVE DATA Vital Signs: Vital Signs - 24 hr Temp Pulse Resp BP Pulse Ox 11/06/20 07:18 97.5 F 85 16 125/77 95 11/06/20 06:47 87 18 95 11/06/20 04:05 98.0 F 79 20 112/66 90 L 11/06/20 03:34 79 20 91 L 11/05/20 23:37 97.5 F 88 21 94/61 91 L 11/05/20 22:46 99 H 22 94 L 11/05/20 19:36 91 H 22 90 L 11/05/20 19:11 98.0 F 93 H 22 113/62 93 L 11/05/20 15:58 98.5 F 79 23 107/63 93 L 11/05/20 15:02 87 23 94 L 11/05/20 12:00 98.2 F 81 23 140/71 95 11/05/20 11:03 90 20 95 Oxygen-Last 24 hours Oxygen Flowrate (L/min)-RT 6 Oxygen Flowrate (L/min)-RT 30 Pain Assessment - Last Documented Pain Intensity 0 Intake and Output: Intake & Output 11/03/20 11/04/20 11/05/20 11/06/20 11:59 11:59 11:59 11:59 Intake Total 720 1740 Output Total 1100 2250 Balance -380 -510 Weight 80.5 kg Lab Results: Lab Results-Last 24 Hours 11/05/20 11/05/20 11/05/20 Range/Units 16:00 16:33 20:58 POC Glucometer 284 H 115 H (74 to 106) mg/dL Hemoglobin A1c 6.28 H (4.5-6.0) % 11/06/20 Range/Units 07:07 POC Glucometer 117 H (74 to 106) mg/dL Hemoglobin A1c (4.5-6.0) % Radiology Exams: Radiology Procedures Category Date Time Status CHEST 1 VIEW (PORTABLE) Stat Exams 11/04/20 15:50 Completed CHEST WITH CONTRAST [CT] Stat Exams 11/04/20 16:[address]/CHEST WITH CONTRAST Indication: Short of breath. Elevated d-dimer. COPD. Multiple contiguous axial images obtained through the chest using 100 cc Isovue 370 contrast and PE protocol. Comparison: July 29, 2018. There is good opacification of the pulmonary arteries to include the lobar and segmental branches. No pulmonary embolus. Heart is not enlarged. Aorta remains normal in course and caliber with minimal arteriosclerotic calcifications. Stable prominent mediastinal and right hilar lymph nodes again largest subcarinal today measuring 1.9 x 3.1 cm. Lungs again demonstrate diffuse pulmonary emphysema with scattered fibrosis/scarring and left mid lung suture material. There remains posterior bibasilar infiltrates versus atelectasis. No suspicious pulmonary mass/nodule, consolidation, or effusion. Bony thorax remains intact. Limited upper abdomen again demonstrates fatty liver. Impression: 1. Continued negative for pulmonary embolus. 2. Stable bibasilar infiltrates/atelectasis cysts. No new cardiopulmonary abnormalities. 3. Again incidental pulmonary emphysema, scattered fibrosis/scarring, left lung postsurgical changes, prominent mediastinal/right hilar lymph nodes, and fatty liver. Multi-Disciplinary Progress Notes: Multi-Disciplinary Progress Notes 11/05/20 15:15 Case Management Note by Manjula Box SPOKE WITH MARY KAY AT [facility]. ACCEPT PT'S INSURANCE. FAXED REFERRAL. PER MARY KAY THEY WILL PLAN ON SEEING PT FIRST OF WEEK. Initialized on 11/05/20 15:15 - END OF NOTE 11/05/20 15:02 Case Management Note by Manjula Box SIG OTHER IS AT BEDSIDE. REPORTS THAT THEY THINK THAT PT COULD BENEFIT FROM HHC SERVICES ON DISCHARGE. PROVIDED WITH PROVIDER PREFERENCE LIST. PT SIG OTHER HAS USED [facility] AND [facility] IN THE PAST. 3RD CHOICE IS [facility]. PHONE CALL TO [facility], THEY CAN NOT PROVIDE SERVICES THEY DON'T HAVE THE NURSING STAFF CURRENTLY. CALL TO [facility], SPOKE WITH KAYODE GAINES, AND THEY CAN NOT TAKE PT'S INSURANCE. CALL TO [facility], WILL HAVE SOMEONE CALL ME BACK. Initialized on 11/05/20 15:02 - END OF NOTE 11/05/20 13:46 Respiratory Note by Yoanna Rodríguez Pt changed to 8lpm oxymizer due to O2 Sat dropping on NC Initialized on 11/05/20 13:46 - END OF NOTE 11/05/20 12:56 Case Management Note by Manjula Box DR ROUNDED AND EVALUATED, DISCUSSED PLAN OF CARE AND EDUCATED TO DX: COPD. DISCUSSED LIKELY 1-2 MORE DAYS OF TREATMENT. PT VERBALIZED UNDERSTANDING TO ALL INFORMATION, REPORTS THAT HE IS STARTING TO FEEL BETTER AND IN AGREEMENT WITH PLAN OF CARE. Initialized on 11/05/20 12:56 - END OF NOTE 11/05/20 11:35 Respiratory Note by Madelaine Garcia PT TAKEN OFF THE HIGH FLOW AND PLACED ON 5L N.C PT TOLERATING IT WELL. PT KNOWS TO CALL IF HE GETS SOB. WILL CONTINUE TO MONITOR. Initialized on 11/05/20 11:35 - END OF NOTE Assessment/Plan (1) COPD exacerbation Current Visit: Yes Status: Acute Assessment & Plan: improving, requires less O2 Code(s): J44.1 - CHRONIC OBSTRUCTIVE PULMONARY DISEASE W (ACUTE) EXACERBATION (2) SOB (shortness of breath) Current Visit: Yes Status: Resolved Code(s): R06.02 - SHORTNESS OF BREATH (3) Hypoxia Current Visit: Yes Status: Chronic Code(s): R09.02 - HYPOXEMIA (4) Diabetes Current Visit: Yes Status: Chronic Qualifiers: Diabetes mellitus type: type 2 Diabetes mellitus chcf insulin use: without chcf use Diabetes mellitus complication status: with hyperglycemia Qualified Code(s): E11.65 - Type 2 diabetes mellitus with hyperglycemia Code(s): E11.9 - TYPE 2 DIABETES MELLITUS WITHOUT COMPLICATIONS (5) GERD (gastroesophageal reflux disease) Current Visit: Yes Status: Chronic Qualifiers: Esophagitis presence: without esophagitis Code(s): K21.9 - GASTRO-ESOPHAGEAL REFLUX DISEASE WITHOUT ESOPHAGITIS
--- NOTE | 2020-11-06 12:39 | PCM.DS ---
Discharge Summary Date of Admission: 11/04/20 18:17 Date of Discharge: 11/07/2020 Admitting Physician: ALFREDO POP Primary Care Provider: KRUPA MAZA Allergies Allergies nicotine [From [facility]] Allergy (Severe, Verified 11/04/20 18:45) Rash Hospital Summary - Hospital Course Hospital Course: Chief Complaint Diagnosis c/o shortness of breath for 2 days Allergies Allergy/AdvReac Type Severity Reaction Status Date / Time nicotine [From [facility]] Allergy Severe Rash Verified 11/04/20 18:45 Vital Signs (Last 24 hours) Temp Pulse Resp BP Pulse Ox 11/06/20 12:00 97.5 F 90 16 112/64 92 L 11/06/20 10:52 90 20 94 L 11/06/20 07:18 97.5 F 85 16 125/77 95 11/06/20 06:47 87 18 95 11/06/20 04:05 98.0 F 79 20 112/66 90 L 11/06/20 03:34 79 20 91 L 11/05/20 23:37 97.5 F 88 21 94/61 91 L 11/05/20 22:46 99 H 22 94 L 11/05/20 19:36 91 H 22 90 L 11/05/20 19:11 98.0 F 93 H 22 113/62 93 L 11/05/20 15:58 98.5 F 79 23 107/63 93 L 11/05/20 15:02 87 23 94 L Current Medications Generic Name Dose Route Start Last Admin Trade Name Freq PRN Reason Stop Dose Admin Albuterol Sulfate 2.5 mg 11/04/20 19:00 11/06/20 10:48 Proventil 2.5 Mg/3 Ml Neb IH 12/04/20 18:59 2.5 mg Q4HRT FAHEEM Administration Alprazolam 1 mg 11/05/20 12:00 11/06/20 09:34 Xanax 1 Mg PO 12/05/20 11:59 1 mg BID FAHEEM Administration Amlodipine Besylate 2.5 mg 11/05/20 10:00 11/06/20 09:33 Norvasc 5 Mg PO 12/05/20 09:59 2.5 mg DAILY FAHEEM Administration Artificial Tears 0 ml 11/05/20 11:29 Artificial Tears 15 Ml OP 12/05/20 11:28 Q4H PRN PRN dry eyes Aspirin 81 mg 11/05/20 12:00 11/06/20 09:33 Ecotrin 81 Mg PO 12/05/20 11:59 81 mg DAILY FAHEEM Administration Hydrochlorothiazide 12.5 mg 11/05/20 12:00 11/06/20 09:32 Hydrodiuril 25 Mg PO 12/05/20 11:59 12.5 mg DAILY FAHEEM Administration Ceftriaxone Sodium/Dextrose 1 g in 50 mls @ 100 mls/hr 11/05/20 14:00 11/06/20 09:30 Rocephin 1 Gm-D5w 50 Ml Bag IV 11/08/20 13:59 100 mls/hr Q24H10 FAHEEM Administration Azithromycin 500 mg in 250 mls @ 250 mls/hr 11/05/20 14:00 11/06/20 09:30 Zithromax 500 Mg/ 250 Ml Nacl Premix IV 12/05/20 13:59 250 mls/hr Q24H10 FAHEEM Administration Insulin Human Lispro 0 unit 11/05/20 13:05 11/05/20 17:07 Humalog SQ 12/05/20 13:04 4 unit UD PRN Administration HYPERGLYCEMIA Isosorbide Mononitrate 60 mg 11/05/20 12:00 11/06/20 09:34 Imdur 60mg PO 12/05/20 11:59 60 mg DAILY FAHEEM Administration Latanoprost 0 ml 11/05/20 22:00 11/05/20 22:25 Xalatan OP 12/05/20 21:59 1 ml HS FAHEEM Administration Lorazepam 0.5 mg 11/04/20 19:54 11/04/20 20:09 Ativan 0.5 Mg PO 12/04/20 19:53 0.5 mg Q8H PRN PRN Administration ANXIETY Metformin HCl 500 mg 11/07/20 08:00 Glucophage 500 Mg PO 12/07/20 07:59 BIDWM FAHEEM Methylprednisolone Sodium Succinate 80 mg 11/05/20 14:00 11/06/20 06:39 Solu-Medrol 125 Mg IV 12/05/20 13:59 80 mg Q8HT FAHEEM Administration Metoprolol Tartrate 25 mg 11/04/20 22:00 11/06/20 09:32 Lopressor 25mg Tab PO 12/04/20 21:59 25 mg BID FAHEEM Administration Nitroglycerin 0.4 mg 11/05/20 11:29 Nitrostat 0.4 Mg Tablet SL 12/05/20 11:28 Q5MIN PRN MR X 3 PRN CHEST PAIN Pantoprazole Sodium 40 mg 11/04/20 22:00 11/06/20 09:33 Protonix 40mg Tablet PO 12/04/20 21:59 40 mg BID FAHEEM Administration Pramipexole Dihydrochloride 0.25 mg 11/05/20 22:00 11/05/20 22:23 Mirapex 0.5 Mg Tablet PO 12/05/20 21:59 0.25 mg QHS FAHEEM Administration Fluticasone/Salmeterol 2 puff 11/04/20 19:00 11/06/20 06:45 Advair Hfa 230/21 Mcg Common Canister* IH 12/04/20 18:59 2 puff BIDRT FAHEEM Administration Simvastatin 40 mg 11/04/20 22:00 11/05/20 22:26 Zocor 20mg PO 12/04/20 21:59 40 mg HS FAHEEM Administration Theophylline 300 mg 11/04/20 22:00 11/06/20 09:30 Theophylline Er 24hr PO 12/04/20 21:59 300 mg BID FAHEEM Administration Tiotropium [place] 1 ea 11/05/20 10:00 11/06/20 06:45 Spiriva 18 Mcg/Cap Inhaler IH 12/05/20 09:59 1 ea DAILY FAHEEM Administration Discontinued Medications Generic Name Dose Route Start Last Admin Trade Name Freq PRN Reason Stop Dose Admin Albuterol Sulfate Confirm 11/04/20 19:06 Proventil 2.5 Mg/3 Ml Neb Administered 11/04/20 19:07 Dose 2.5 mg IH .STK-MED ONE Ceftriaxone Sodium/Dextrose 2 g in 50 mls @ 100 mls/hr 11/04/20 17:44 11/04/20 17:55 Rocephin 2 Gm-D5w 50ml Bag IV 11/04/20 18:13 100 ml/hr STAT STA 100 mls/hr Administration Acyclovir Sodium 500 mg/ 100 mls @ 100 mls/hr 11/04/20 17:44 11/04/20 17:54 Dextrose IV 11/04/20 18:43 Not Given STAT ONE Azithromycin / Sodium Chloride 250 mls @ 125 mls/hr 11/04/20 17:46 IV 11/04/20 19:45 STAT ONE Ceftriaxone Sodium/Dextrose Confirm 11/04/20 17:52 Rocephin 2 Gm-D5w 50ml Bag Administered 11/04/20 17:53 Dose 2 g in 50 mls @ ud IV .STK-MED ONE Metformin HCl 500 mg 11/05/20 08:00 11/05/20 07:59 Glucophage 500 Mg PO 12/05/20 07:59 Not Given BIDWM FAHEEM Methylprednisolone Sodium Succinate 125 mg 11/04/20 20:00 11/05/20 08:04 Solu-Medrol 125 Mg IV 12/04/20 19:59 125 mg Q6H FAHEEM Administration Non-Formulary Medication 1 each 11/05/20 10:00 11/06/20 09:35 Hold Metformin Products For 48 Hours 11/06/20 10:01 1 each DAILY FAHEEM Administration Intake & Output (Last 24 hours) 11/04/20 11/05/20 11/06/20 11/07/20 11:59 11:59 11:59 11:59 Intake Total 720 1740 Output Total 1100 2250 Balance -380 -510 Weight 80.5 kg Laboratory Results (Last 24 hours) 11/06/20 11/06/20 11/05/20 11:20 07:07 20:58 POC Glucometer 170 H 117 H 115 H Hemoglobin A1c 11/05/20 11/05/20 16:33 16:00 POC Glucometer 284 H Hemoglobin A1c 6.28 H Orders (Last 24 hours) Category Date Time Status POCT Glucose Check ACHS Care 11/05/20 12:04 Active HEMOGLOBIN A1C Routine Lab 11/05/20 16:00 Completed POCT GLUCOSE Stat Lab 11/05/20 16:33 Completed POCT GLUCOSE Stat Lab 11/05/20 20:58 Completed POCT GLUCOSE Stat Lab 11/06/20 07:07 Completed POCT GLUCOSE Stat Lab 11/06/20 11:20 Completed ALPRAZolam 1 MG [Xanax 1 mg] Med 11/05/20 12:00 Active 1 mg PO BID Aspirin EC 81 mg [Ecotrin 81 mg] Med 11/05/20 12:00 Active 81 mg PO DAILY Azithromycin 500 mg/250 ml [Zithromax 500 MG/ 250 ML Med 11/05/20 14:00 Active NaCl Premix] 500 mg in 250 ml IV Q24H10 Ceftriaxone 1 GM/50 ML PREMIX* [ROCEPHIN 1 Gm-D5w 50 ml Med 11/05/20 14:00 Active Bag] 1 g in 50 ml IV Q24H10 Hydrochlorothiazide 25 mg [hydroDIURIL 25 MG] Med 11/05/20 12:00 Active 12.5 mg PO DAILY Insulin Lispro [Humalog] Med 11/05/20 13:05 Active See Dose Instructions SQ UD PRN Isosorbide Mononitrate 60 mg [Imdur 60MG] Med 11/05/20 12:00 Active 60 mg PO DAILY Latanoprost [Xalatan] Med 11/05/20 22:00 Active 0 ml OP HS Metformin HCl 500 mg [Glucophage 500 MG] Med 11/07/20 08:00 Active 500 mg PO BIDWM Methylprednis Sod Succ 125 mg* [solu-MEDROL 125 MG] Med 11/05/20 14:00 Active 80 mg IV Q8HT Pramipexole Di-HCl 0.5 mg [Mirapex 0.5 MG Tablet] Med 11/05/20 22:00 Active 0.25 mg PO QHS Patient Care Notes (Last 24 hours) 11/05/20 15:15 Case Management Note by Manjula Box SPOKE WITH MARY KAY AT [facility]. ACCEPT PT'S INSURANCE. FAXED REFERRAL. PER MARY KAY THEY WILL PLAN ON SEEING PT FIRST OF WEEK. Initialized on 11/05/20 15:15 - END OF NOTE 11/05/20 15:02 Case Management Note by Manjula Box SIG OTHER IS AT BEDSIDE. REPORTS THAT THEY THINK THAT PT COULD BENEFIT FROM [facility] ON DISCHARGE. PROVIDED WITH PROVIDER PREFERENCE LIST. PT SIG OTHER HAS USED [facility] AND [facility] IN THE PAST. 3RD CHOICE IS [facility]. PHONE CALL TO [facility], THEY CAN NOT PROVIDE SERVICES THEY DON'T HAVE THE NURSING STAFF CURRENTLY. CALL TO [facility], SPOKE WITH KAYODE GAINES, AND THEY CAN NOT TAKE PT'S INSURANCE. CALL TO [facility], WILL HAVE SOMEONE CALL ME BACK. Initialized on 11/05/20 15:02 - END OF NOTE 11/05/20 13:46 Respiratory Note by Yoanna Rodríguez Pt changed to 8lpm oxymizer due to O2 Sat dropping on NC Initialized on 11/05/20 13:46 - END OF NOTE 11/05/20 12:56 Case Management Note by Manjula Box DR ROUNDED AND EVALUATED, DISCUSSED PLAN OF CARE AND EDUCATED TO DX: COPD. DISCUSSED LIKELY 1-2 MORE DAYS OF TREATMENT. PT VERBALIZED UNDERSTANDING TO ALL INFORMATION, REPORTS THAT HE IS STARTING TO FEEL BETTER AND IN AGREEMENT WITH PLAN OF CARE. Initialized on 11/05/20 12:56 - END OF NOTE - Vitals & Intake/Output Vital Signs: Vital Signs Temperature 97.5 F 11/06/20 12:00 Pulse Rate 90 11/06/20 12:00 Respiratory Rate 16 11/06/20 12:00 Blood Pressure 112/64 11/06/20 12:00 O2 Sat by Pulse Oximetry 92 L 11/06/20 12:00 Intake & Output: Intake & Output 11/04/20 11/05/20 11/06/20 11/07/20 11:59 11:59 11:59 11:59 Intake Total 720 1740 Output Total 1100 2250 Balance -380 -510 Weight 80.5 kg - Lab Result Diagrams: 11/05/20 04:40 11/05/20 04:40 Lab Results-Last 24 Hrs: Lab Results-Last 24 Hours 11/05/20 11/05/20 11/05/20 Range/Units 16:00 16:33 20:58 POC Glucometer 284 H 115 H (74 to 106) mg/dL Hemoglobin A1c 6.28 H (4.5-6.0) % 11/06/20 11/06/20 Range/Units 07:07 11:20 POC Glucometer 117 H 170 H (74 to 106) mg/dL Hemoglobin A1c (4.5-6.0) % Micro Results-Entire Visit: Accuchecks Date 11/06/20 Date 11/06/20 - Radiology Exams Ordered Rad Exams-Entire Visit: Radiology Procedures Category Date Time Status CHEST 1 VIEW (PORTABLE) Stat Exams 11/04/20 15:50 Completed CHEST WITH CONTRAST [CT] Stat Exams 11/04/20 16:27 Completed - Procedures and Test Procedures and Tests throughout Hospitalization: Therapy Orders & Screens 11/04/20 18:42 RT Screen per Nursing Assess ONCE Comment: Protocol Order Physician Instructions: Greater than 3 points order RT Admission Screen Reason For Exam: Triggered on Admission Diagnosis: COPD exacerbation Diagnosis: COPD exacerbation Pneumonia: No Home O2: Yes: 4l o2 Asthma: No CHF: No Home CPAP/BIPAP: Yes: CPAP Home Nebs/MDI: Yes Total Points: 15 11/04/20 20:18 Oxygen High Flow per RT 50% Comment: Diagnosis: COPD exacerbation Respiratory Therapy Assessment DAILY Comment: Diagnosis: COPD exacerbation Discharge Exam General Appearance: no apparent distress, alert Neurologic Exam: alert, oriented x 3, cooperative, normal mood/affect, nml cerebellar function, sensation nml, No motor deficits Eye Exam: PERRL, EOMI, eyes nml inspection Ears, Nose, Throat Exam: normal ENT inspection, pharynx normal, moist mucous membranes Neck Exam: normal inspection, non-tender, supple, full range of motion Respiratory Exam: normal breath sounds, lungs clear, No respiratory distress Cardiovascular Exam: regular rate/rhythm, normal heart sounds Gastrointestinal/Abdomen Exam: soft, No tenderness, No mass Male Genitalia Exam: deferred Rectal Exam: deferred Back Exam: normal inspection, normal range of motion, No CVA tenderness, No vertebral tenderness Extremity Exam: normal inspection, normal range of motion Skin Exam: normal color, warm, dry Final Diagnosis/Problem List - Final Discharge Diagnosis/Problem (1) COPD exacerbation Current Visit: Yes Status: Resolved Code(s): J44.1 - CHRONIC OBSTRUCTIVE PULMONARY DISEASE W (ACUTE) EXACERBATION (2) SOB (shortness of breath) Current Visit: Yes Status: Resolved Code(s): R06.02 - SHORTNESS OF BREATH (3) Hypoxia Current Visit: Yes Status: Chronic Code(s): R09.02 - HYPOXEMIA (4) Diabetes Current Visit: Yes Status: Chronic Code(s): E11.9 - TYPE 2 DIABETES MELLITUS WITHOUT COMPLICATIONS (5) GERD (gastroesophageal reflux disease) Current Visit: Yes Status: Chronic Code(s): K21.9 - GASTRO-ESOPHAGEAL REFLUX DISEASE WITHOUT ESOPHAGITIS - Discharge Discharge Date: 11/07/20 Disposition: Home, Self-Care Condition: Stable Prescriptions: Continue Omeprazole 20 MG [Prilosec 20 mg] 20 mg PO BIDAC Hydrochlorothiazide 25 mg [hydroDIURIL 25 MG] 12.5 mg PO DAILY Albuterol 2.5 mg/3 ml Neb [Proventil 2.5 mg/3 ml Neb] 1 neb IH Q6H Tiotropium [place] Inhaler [Spiriva 18 Mcg/Cap Inhaler] 2 puff IH DAILY Aspirin 81 mg PO DAILY Metformin HCl 500 mg [Glucophage 500 MG] 500 mg PO BIDWM Nitroglycerin 0.4 mg Tablet [Nitrostat 0.4 MG Tablet] 0.4 mg SL Q5MIN PRN MR X 3 PRN PRN Reason: Chest Pain Latanoprost 1 drop OP HS ALPRAZolam 1 MG [Xanax 1 mg] 1 mg PO BID Theophylline Anhydrous 300 mg PO BID Budesonide/Formoterol Fumarate [Symbicort 80-4.5 Mcg Inhaler] 2 puffs IH BID Pramipexole Di-HCl [Pramipexole Dihydrochloride] 0.25 mg PO QHS Amlodipine Besylate 5 mg [Norvasc 5 mg] 2.5 mg PO DAILY Albuterol Common Canister [Ventolin Common Canister] 2 puff IH Q6HPRN PRN PRN Reason: Shortness Of Breath/Wheezing Isosorbide Mononitrate 60 mg [Imdur 60MG] 60 mg PO DAILY Metoprolol Tartrate 25 mg [Lopressor 25MG Tab] 25 mg PO BID Polyvinyl Alcohol Tears [Artificial Tears 15 ML] 1 drop OP Q4H PRN PRN PRN Reason: dry eyes Rosuvastatin Calcium 20 mg PO HS Additional Instructions: [facility] WILL CALL BRENDA TO MAKE ARRANGEMENTS FOR YOUR FIRST APPOINTMENT. YOU MAY REACH THEM AT [phone] FOR ANY NEEDS. Follow up with: ANGÉLICA STEIN [CONSULTING PHYSICIAN] - 11/16/20 10:15 am (at [facility]) KRUPA MAZA MD [Primary Care Provider] - 11/11/20 11:15 am
[2020-11-06] MEDS: Mirapex 0.5 MG Tablet PO SCH (21:32)
[2020-11-06] MEDS: ZOCOR 20MG PO SCH (21:34)
[2020-11-06] MEDS: Xalatan OP SCH (21:34)
[2020-11-07] MEDS: PROVENTIL 2.5 MG/3 ML NEB IH SCH ×3 (04:12→10:20)
[2020-11-07] MEDS: solu-MEDROL 125 MG IV SCH (05:25)
[2020-11-07] MEDS: Advair Hfa 230/21 Mcg COMMON CANISTER IH SCH (06:31)
[2020-11-07] MEDS: Spiriva 18 Mcg/Cap Inhaler IH SCH (06:31)
[2020-11-07 07:48] VITALS: BP 129/72; O2SAT 93
[2020-11-07] MEDS ORDERED: Glucophage 500 MG PO SCH (08:00)
[2020-11-07 10:25] VITALS: PULSE 96
[2020-11-07] MEDS: hydroDIURIL 25 MG PO SCH (10:27)
[2020-11-07] MEDS: Imdur 60MG PO SCH (10:27)
[2020-11-07] MEDS: ECOTRIN 81 MG PO SCH (10:27)
[2020-11-07] MEDS: NORVASC 5 MG PO SCH (10:27)
[2020-11-07] MEDS: XANAX 1 MG PO SCH (10:28)
[2020-11-07] MEDS: Lopressor 25MG Tab PO SCH (10:28)
[2020-11-07] MEDS: Protonix 40MG Tablet PO SCH (10:29)
[2020-11-07] MEDS: THEOPHYLLINE ER 24HR PO SCH (10:29)
[2020-11-07] MEDS: ROCEPHIN 1 Gm-D5w 50 ml Bag** 1 G/50 ML IVPB IV SCH (10:30)
== END 2020-11-07 11:20 | disposition home or self-care (01) ==
LOC: ED 15:42 → MED SURG 18:17
PROVIDERS: ADMIT Family Medicine; ATTEND General Practice
DX: J44.1 Chronic obstructive pulmonary disease with (acute) exacerbation (principal); R09.02 Hypoxemia; Z99.81 Dependence on supplemental oxygen; E11.9 Type 2 diabetes mellitus without complications; G47.30 Sleep apnea, unspecified; K21.9 Gastro-esophageal reflux disease without esophagitis; Z79.899 Other long term (current) drug therapy; I10 Essential (primary) hypertension; Z20.828 Contact with and (suspected) exposure to other viral communicable diseases
CPT/HCPCS: 0241U; 36000; 36415; 71045; 71260; 80047; 80053; 80307; 81001; 82947; 83036; 83735; 84484; 85025; 85027; 85379; 87040; 93005; 93041; 93268; 94640; 94760; 94762; 96365; 99285; G0378; J0456; J0696; J1817; J2930; J7609; A9270-GY

== ENCOUNTER 2021-01-25 12:21 | Emergency (ER) | payer MEDICARE ==
[2021-01-25] MEDS ORDERED: DUONEB 0.5-3 MG/3 ml Neb IH ONE ×2 (12:35→12:52)
[2021-01-25] MEDS ORDERED: Lasix 40 MG/4 ML IV ONE (12:35)
[2021-01-25] MEDS ORDERED: BABY ASPIRIN 81 MG CHEW PO ONE (12:36)
--- NOTE | 2021-01-25 12:43 | ERPHSYRPT ---
- History of Present Illness Time Seen by Provider: 01/25/21 12:27 Source: patient Exam Limitations: no limitations Patient Subjective Stated Complaint: SOB Triage Nursing Assessment: pt to ED c/o SOB for unknown length of time, "years," but reports it has been worsening lately. RLL crackles on insp and wheezing exp. L lobe mostly clear. denies CP but reports pain from L shoulder to L groin as well as L testicular swelling. Physician History: 75 years old male with multiple medical problems including chronic respiratory failure on 4 L oxygen secondary to COPD/congestive heart failure with a EF of 16% on LifeVest, hypertension, hyperlipidemia, diabetes mellitus presented in the ER with chief complaint of increasing shortness of breath for almost 1 week with progressive worsening rapidly for the last couple of days especially with activity and even at resting despite using oxygen. He is also complaining of co ugh productive of clear to yellow sputum moderate in amount. Denies any increased swelling in lower extremities but has noticed some swelling left testicle along with pain dull aching to sharp but denies any difficulty urination. No abdominal pain or flank pain. Does complain of left-sided chest discomfort/pain without any exertional element. Patient is tachypneic and tachycardic on presentation with heart rate in 1 and has loud wheezing and crackles. Timing/Duration: week(s) (1), constant, gradual onset, worse Activities at Onset: activity Severity of Dyspnea-Max: moderate Severity of Dyspnea-Current: moderate Possible Cause: occasional episodes Modifying Factors: Improves With: oxygen, rest. Worsens With: activity, coughing, exertion Associated Symptoms: cough, chest pain/discomfort, wheezing, muscle spasms hands, productive cough Allergies/Adverse Reactions: nicotine [From Nicoderm ] Allergy (Severe, Verified 01/25/21 12:33) Rash Home Medications: Albuterol 2.5 mg/3 ml Neb [Proventil 2.5 mg/3 ml Neb] 1 neb IH Q6H 02/04/14 [History] Aspirin 81 mg PO DAILY 02/04/14 [History] Metformin HCl 500 mg [Glucophage 500 MG] 500 mg PO BIDWM 02/04/14 [History] Omeprazole 20 MG [Prilosec 20 mg] 20 mg PO BIDAC 02/04/14 [History] Nitroglycerin 0.4 mg Tablet [Nitrostat 0.4 MG Tablet] 0.4 mg SL Q5MIN PRN MR X 3 PRN 08/01/16 [History] ALPRAZolam 1 MG [Xanax 1 mg] 1 mg PO BID 10/14/18 [History] Theophylline Anhydrous 300 mg PO BID 10/14/18 [History] Albuterol Common Canister [Ventolin Common Canister] 2 puff IH Q6HPRN PRN 06/01/20 [History] Isosorbide Mononitrate 60 mg [Imdur 60MG] 60 mg PO DAILY 06/01/20 [History] Metoprolol Tartrate 25 mg [Lopressor 25MG Tab] 25 mg PO BID 06/01/20 [History] Polyvinyl Alcohol Tears [Artificial Tears 15 ML] 1 drop OP Q4H PRN PRN 06/01/20 [History] Rosuvastatin Calcium 20 mg PO HS 06/01/20 [History] Pramipexole Di-HCl [Mirapex ER] 2.25 mg PO DAILY 01/25/21 [History] Prednisone 5 mg [Deltasone 5 mg] 5 mg PO DAILY 01/25/21 [History] Sacubitril/Valsartan [Entresto 24 mg-26 mg Tablet] 1 each PO DAILY 01/25/21 [History] Spironolactone 25 mg [Aldactone 25 MG] 25 mg PO DAILY 01/25/21 [History] Hx Tetanus, Diphtheria Vaccination/Date Given: No Hx Influenza Vaccination/Date Given: Yes Hx Pneumococcal Vaccination/Date Given: Yes Immunizations Up to Date: No Travel Risk - International Travel Have you traveled outside of the country in past 3 weeks: No - Coronavirus Screening Are you exhibiting any of the following symptoms?: Yes Symptoms: Shortness of Breath Close contact with a COVID-19 positive Pt in past 14-21 Days: No - Vaccine Status Have you recieved a Covid-19 vaccination: No - Review of Systems Constitutional: Fatigue Eyes: No Symptoms Ears, Nose, & Throat: No Symptoms Respiratory: Cough, Dyspnea, Dyspnea on Exertion (GUERRA), Wheezing Cardiac: Chest Pain Abdominal/Gastrointestinal: Constipation Genitourinary Symptoms: Testicle Pain Musculoskeletal: Arthralgias Skin: No Symptoms Neurological: No Symptoms Psychological: No Symptoms Endocrine: No Symptoms Hematologic/Lymphatic: No Symptoms Immunological/Allergic: No Symptoms - Past Medical History Pertinent Past Medical History: Yes Neurological History: No Pertinent History ENT History: No Pertinent History Cardiac History: Aneurysm, Hypertension Respiratory History: COPD, Sleep Apnea Endocrine Medical History: Diabetes Type II Musculoskeletal History: No Pertinent History GI Medical History: No Pertinent History, GERD History: No Pertinent History Psycho-Social History: Anxiety Male Reproductive Disorders: No Pertinent History Other Medical History: 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 Pt also states he had an increase of SOB and chest pain that he has seen Dr. Mallory for and he has been put on nitro. PT wears 4L O2 AT ALL TIMES - Past Surgical History Past Surgical History: Yes Neuro Surgical History: No Pertinent History Cardiac: No Pertinent History Respiratory: Other Gastrointestinal: Hernia Repair Genitourinary: No Pertinent History Musculoskeletal: Orthopedic Surgery Male Surgical History: Vasectomy Other Surgical History: BACK SURGERY, and ear surgery and a left lung biopsy. 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 - Social History Smoking Status: Former smoker How long have you smoked: 40 + Exposure to second hand smoke: No Drug Use: none Patient Lives Alone: No - Nursing Vital Signs Nursing Vital Signs: Initial Vital Signs Temperature 98.9 F 01/25/21 12:22 Pulse Rate 107 H 01/25/21 12:22 Respiratory Rate 25 H 01/25/21 12:22 Blood Pressure 133/84 01/25/21 12:22 O2 Sat by Pulse Oximetry 95 01/25/21 12:22 Pain Scale Pain Intensity 1 - Physical Exam General Appearance: no apparent distress, alert Eye Exam: PERRL/EOMI, eyes nml inspection Ears, Nose, Throat Exam: hearing grossly normal, normal pharynx Neck Exam: normal inspection, non-tender, supple, full range of motion Respiratory Exam: diminished breath sounds, prolonged expirations, crackles/rales, wheezing Cardiovascular/Chest Exam: normal heart sounds, tachycardia Abdominal/Gastrointestinal Exam: soft, normal bowel sounds, other (Left testicular/scrotal swelling with minimal tenderness. Can get above the cord bilaterally. Normal lie. No inguinal hernia.), No tenderness Extremity Exam: non-tender, normal range of motion Neurologic Exam: alert, oriented x 3, cooperative Skin Exam: normal color SpO2 Interpretation: normal SpO2: 95 O2 Delivery: Nasal Cannula - Course EKG Interpreted by Me: RATE, Sinus Tach, Left Lawrence Deviation, NORMAL INTERVALS, Right Bundle Branch Block, Non-specific ST Changes Ordered Tests: Active Orders 24 hr Category Date Time Status Guardian Ad Litem STAT Care 01/25/21 12:36 Active EKG-ER Only STAT Care 01/25/21 12:35 Active IV Insertion STAT Care 01/25/21 12:35 Active CHEST 1 VIEW (PORTABLE) Stat Exams 01/25/21 12:35 Completed TESTICLE [US] Stat Exams 01/25/21 13:22 Completed BLOOD CULTURE Stat Lab 01/25/21 12:50 Received CBC W DIFF Stat Lab 01/25/21 12:30 Completed CMP Stat Lab 01/25/21 12:30 Completed Lactic Acid Stat Lab 01/25/21 12:35 Completed MAGNESIUM Stat Lab 01/25/21 12:30 Completed NT PRO BNP Stat Lab 01/25/21 12:30 Completed TROPONIN Q3H Lab 01/25/21 12:30 Completed TROPONIN Q3H Lab 01/25/21 15:45 Ordered TROPONIN Q3H Lab 01/25/21 18:45 Ordered TROPONIN Q3H Lab 01/25/21 21:45 Ordered TROPONIN Q3H Lab 01/26/21 00:45 Ordered UA W/RFX UR CULTURE Stat Lab 01/25/21 13:30 Completed Respiratory Therapy Assessment DAILY RT 01/25/21 13:31 Active Medication Summary Generic Name Dose Route Start Last Admin Trade Name Freq PRN Reason Stop Dose Admin Levofloxacin/Dextrose 750 mg in 150 mls @ 100 mls/hr 01/25/21 14:10 01/25/21 14:49 Levofloxacin 750mg/150ml D5w IV 01/25/21 15:39 100 mls/hr STAT STA 100 mls/hr Administration Discontinued Medications Generic Name Dose Route Start Last Admin Trade Name Freq PRN Reason Stop Dose Admin Albuterol/Ipratropium 3 ml 01/25/21 12:35 01/25/21 13:26 Duoneb 0.5-3 Mg/3 Ml Neb IH 01/25/21 12:36 3 ml STAT ONE Administration Albuterol/Ipratropium Confirm 01/25/21 12:52 Duoneb 0.5-3 Mg/3 Ml Neb Administered 01/25/21 12:53 Dose 3 ml IH .STK-MED ONE Aspirin 324 mg 01/25/21 12:36 01/25/21 12:50 Baby Aspirin 81 Mg Chew PO 01/25/21 12:37 324 mg STAT ONE Administration Aspirin Confirm 01/25/21 12:48 Baby Aspirin 81 Mg Chew Administered 01/25/21 12:49 Dose 324 mg .ROUTE .STK-MED ONE Furosemide 40 mg 01/25/21 12:35 01/25/21 12:49 Lasix 40 Mg/4 Ml IV 01/25/21 12:36 40 mg STAT ONE Administration Furosemide Confirm 01/25/21 12:48 Lasix 40 Mg/4 Ml Administered 01/25/21 12:49 Dose 40 mg .ROUTE .STK-MED ONE Levofloxacin/Dextrose Confirm 01/25/21 14:45 Levofloxacin 750mg/150ml D5w Administered 01/25/21 14:46 Dose 750 mg in 150 mls @ ud IV .STK-MED ONE Methylprednisolone Sodium Succinate 125 mg 01/25/21 14:10 01/25/21 14:48 Solu-Medrol 125 Mg IV 01/25/21 14:11 125 mg STAT ONE Administration Methylprednisolone Sodium Succinate Confirm 01/25/21 14:45 Solu-Medrol 125 Mg Administered 01/25/21 14:46 Dose 125 mg .ROUTE .STK-MED ONE Lab/Rad Data: Laboratory Result Diagrams 01/25/21 12:30 01/25/21 12:30 Laboratory Results 01/25/21 01/25/21 01/25/21 Range/Units 13:30 12:35 12:30 WBC (4.0-10.5) K/mm3 RBC (4.1-5.6) M/mm3 Hgb (12.5-18.0) gm/dl Hct (42-50) % MCV (78-100) fl MCH (26-32) pg MCHC (32-36) g/dl RDW (11.5-14.0) % Plt Count (150-450) K/mm3 MPV (7.5-11.0) fl Gran % (36.0-66.0) % Eos # (Auto) (0-0.5) Absolute Lymphs (auto) (1.0-4.6) Absolute Monos (auto) (0.0-1.3) Lymphocytes % (24.0-44.0) % Monocytes % (0.0-12.0) % Eosinophils % (0.00-5.0) % Basophils % (0.0-0.4) % Absolute Granulocytes (1.4-6.9) Basophils # (0-0.4) Sodium (137-145) mmol/L Potassium (3.5-5.1) mmol/L Chloride (98-107) mmol/L Carbon Dioxide (22-30) mmol/L Anion Gap (5-15) MEQ/L BUN (9-20) mg/dL Creatinine (0.66-1.25) mg/dL Estimated GFR ML/MIN Glucose (74-106) mg/dL Lactic Acid 1.0 (0.4-2.0) Calcium (8.4-10.2) mg/dL Magnesium (1.6-2.3) mg/dL Total Bilirubin (0.2-1.3) mg/dL AST (17-59) U/L ALT (0-50) U/L Alkaline Phosphatase (38-126) U/L Troponin I < 0.012 (0.000-0.034) ng/mL NT-Pro-B Natriuret Pep (0-900) pg/mL Serum Total Protein (6.3-8.2) g/dL Albumin (3.5-5.0) g/dL Urine Color YELLOW (YELLOW) Urine Appearance CLEAR (CLEAR) Urine pH 7.0 (5-6) Ur Specific [place] 1.008 (1.005-1.025) Urine Protein NEGATIVE (Negative) Urine Ketones NEGATIVE (NEGATIVE) Urine Blood NEGATIVE (0-5) Johan/ul Urine Nitrite NEGATIVE (NEGATIVE) Urine Bilirubin NEGATIVE (NEGATIVE) Urine Urobilinogen 2 (0-1) mg/dL Ur Leukocyte Esterase NEGATIVE (NEGATIVE) Urine WBC (Auto) NONE (0-5) /HPF Urine RBC (Auto) NONE (0-2) /HPF U Epithel Cells (Auto) NONE (FEW) /HPF Urine Bacteria (Auto) NONE (NEGATIVE) /HPF Urine Culture Reflexed NO (NO) Urine Glucose NEGATIVE (NEGATIVE) mg/dL 01/25/21 01/25/21 Range/Units 12:30 12:30 WBC 11.4 H (4.0-10.5) K/mm3 RBC 5.11 (4.1-5.6) M/mm3 Hgb 12.9 (12.5-18.0) gm/dl Hct 41.4 L (42-50) % MCV 81.0 (78-100) fl MCH 25.2 L (26-32) pg MCHC 31.2 L (32-36) g/dl RDW 17.4 H (11.5-14.0) % Plt Count 258 (150-450) K/mm3 MPV 9.6 (7.5-11.0) fl Gran % 85.8 H (36.0-66.0) % Eos # (Auto) 0.03 (0-0.5) Absolute Lymphs (auto) 0.74 L (1.0-4.6) Absolute Monos (auto) 0.84 (0.0-1.3) Lymphocytes % 6.5 L (24.0-44.0) % Monocytes % 7.3 (0.0-12.0) % Eosinophils % 0.3 (0.00-5.0) % Basophils % 0.1 (0.0-0.4) % Absolute Granulocytes 9.82 H (1.4-6.9) Basophils # 0.01 (0-0.4) Sodium 138 (137-145) mmol/L Potassium 4.5 (3.5-5.1) mmol/L Chloride 100 (98-107) mmol/L Carbon Dioxide 29 (22-30) mmol/L Anion Gap 13.3 (5-15) MEQ/L BUN 8 L (9-20) mg/dL Creatinine 0.55 L (0.66-1.25) mg/dL Estimated GFR > 60.0 ML/MIN Glucose 96 (74-106) mg/dL Lactic Acid (0.4-2.0) Calcium 9.3 (8.4-10.2) mg/dL Magnesium 1.7 (1.6-2.3) mg/dL Total Bilirubin 1.50 H (0.2-1.3) mg/dL AST 25 (17-59) U/L ALT 16 (0-50) U/L Alkaline Phosphatase 52 (38-126) U/L Troponin I (0.000-0.034) ng/mL NT-Pro-B Natriuret Pep 705 (0-900) pg/mL Serum Total Protein 6.5 (6.3-8.2) g/dL Albumin 4.0 (3.5-5.0) g/dL Urine Color (YELLOW) Urine Appearance (CLEAR) Urine pH (5-6) Ur Specific [place] (1.005-1.025) Urine Protein (Negative) Urine Ketones (NEGATIVE) Urine Blood (0-5) Johan/ul Urine Nitrite (NEGATIVE) Urine Bilirubin (NEGATIVE) Urine Urobilinogen (0-1) mg/dL Ur Leukocyte Esterase (NEGATIVE) Urine WBC (Auto) (0-5) /HPF Urine RBC (Auto) (0-2) /HPF U Epithel Cells (Auto) (FEW) /HPF Urine Bacteria (Auto) (NEGATIVE) /HPF Urine Culture Reflexed (NO) Urine Glucose (NEGATIVE) mg/dL - Progress Progress: re-examined Air Movement: fair Progress Note: 01/25/21 14:56 75 years old is evaluated for increasing shortness of breath and testicular swellings. Is given DuoNeb, Lasix 40 mg IV/Solu-Medrol, on reevaluation his breathing is better but still short of breath needing 5 L oxygen and desatted to 88/89% with tachypnea. Placed on oxygen meter. Feeling better on reevaluation. Chest x-ray did not show any acute pneumonic infiltrate or pattern consistent with CHF exacerbation. Has minimally elevated white count, grossly unremarkable chemistries and negative initial troponin. EKG is grossly unchanged when compared with the previous. I have obtained ultrasound testicle which showed finding consistent with orchitis. He is given a dose of Levaquin as well which would cover for both orchitis and bronchitis with COPD exacerbation. Discussed with , reviewed presentation, work-up and current management, recommended transfer to [place] with cardiology services. Discussed with Dr. Ricardo Augustine at [facility], reviewed history, work-up and current management plan, agreed with transfer. Plan discussed with patient and family who understand and agree with it. Blood Culture(s) Obtained: Yes Antibiotics given: Yes Discussed with : Edwin Counseled pt/family regarding: lab results, diagnosis, rad results - Departure Clinical Impression: Acute on chronic respiratory failure with hypoxia, Orchitis COPD (chronic obstructive pulmonary disease) Qualifiers: COPD type: COPD with acute exacerbation Qualified Code(s): J44.1 - Chronic obstructive pulmonary disease with (acute) exacerbation Condition: Fair Critical Care Time: Yes Critical Care Time(excluding separately billable procedures): Critical 30-74 mins Referrals: KRUPA MAZA MD [Primary Care Provider] - Instructions: Chronic Obstructive Pulmonary Disease
[2021-01-25] MEDS ORDERED: BABY ASPIRIN 81 MG CHEW ONE (12:48)
[2021-01-25] MEDS ORDERED: Lasix 40 MG/4 ML ONE (12:48)
--- NOTE | 2021-01-25 12:55 | XRAY ---
Indication: Short of breath. Comparison: November 04, 2020. Portable chest limited due to overlying cardiac vest. Stable COPD, bibasilar fibrosis/scarring, and left lung suture material. No focal infiltrate, consolidation, or large effusion. Heart not enlarged. Bony thorax intact again with osteopenia and degenerative changes. Impression: Nonacute limited chest with chronic features.
[2021-01-25 13:08] LABS: Absolute Neutrophil Ct (ANC) 9.82 (1.4-6.9); BASOPHIL % 0.1 % (0.0-0.4); Basophil (Absolute #) 0.01 (0-0.4); Eosinophil % 0.3 % (0.00-5.0); Eosinophil (Absolute #) 0.03 (0-0.5); Hematocrit 41.4 % (42-50); Hemoglobin 12.9 gm/dl (12.5-18.0); Lymphocyte (Absolute #) 0.74 (1.0-4.6); Lymphocytes % 6.5 % (24.0-44.0); Mean Corpuscular Hemoglobin 25.2 pg (26-32); Mean Corpuscular Hgb Concent. 31.2 g/dl (32-36); Mean Platelet Volume 9.6 fl (7.5-11.0); Monocyte (Absolute #) 0.84 (0.0-1.3); Monocytes % 7.3 % (0.0-12.0); Neutrophil % 85.8 % (36.0-66.0); Platelet Count 258 K/mm3 (150-450); Red Blood Count 5.11 M/mm3 (4.1-5.6); Red Cell Distribution Width 17.4 % (11.5-14.0); White Blood Count 11.4 K/mm3 (4.0-10.5)
--- NOTE | 2021-01-25 13:40 | XRAY ---
Indication: Scrotal swelling. Two-dimensional testicular sonogram performed. Comparison: None Both testicles are homogeneous in echogenicity with hyperemic color Doppler flow as seen in orchitis. Large bilateral scrotal hydroceles presumed reactive. Right testicle measures 5.4 x 2.7 x 2.7 cm and the left measures 5.0 x 3.0 x 3.0 cm. Left and right epididymis sonographically unremarkable. Mild right-sided varicocele adjacent to the epididymis. No suspicious solid extratesticular mass. Impression: Bilateral testicular hyperemic color Doppler flow favoring orchitis with large bilateral scrotal hydroceles. Mild right-sided varicocele.
[2021-01-25 13:41] LABS: ALKALINE PHOSPHATASE 52 U/L (38-126); ANION GAP 13.3 MEQ/L (5-15); BLOOD UREA NITROGEN 8 mg/dL (9-20); CHLORIDE 100 mmol/L (98-107); Calcium 9.3 mg/dL (8.4-10.2); Carbon Dioxide 29 mmol/L (22-30); Creatinine 1 0.55 mg/dL (0.66-1.25); EST GLOMERULAR FILTRATION RATE > 60.0 ML/MIN; Glucose 96 mg/dL (74-106); MAGNESIUM 1.7 mg/dL (1.6-2.3); NT PRO BNP 705 pg/mL (0-900); Potassium 4.5 mmol/L (3.5-5.1); SGOT/AST 25 U/L (17-59); SGPT/ALT 16 U/L (0-50); SODIUM 138 mmol/L (137-145); Total Protein 6.5 g/dL (6.3-8.2)
[2021-01-25 14:07] LABS: Appearance CLEAR (CLEAR); Bilirubin NEGATIVE (NEGATIVE); Blood NEGATIVE Ery/ul (0-5); Glucose NEGATIVE (NEGATIVE); Ketones NEGATIVE (NEGATIVE); Leukocyte Esterase NEGATIVE (NEGATIVE); Nitrite NEGATIVE (NEGATIVE); Protein,Urine Dip NEGATIVE (Negative); Specific Gravity 1.008 (1.005-1.025); Urobilinogen 2 mg/dL (0-1)
[2021-01-25 14:09] VITALS: PULSE 90
[2021-01-25] MEDS ORDERED: solu-MEDROL 125 MG IV ONE (14:10)
[2021-01-25] MEDS ORDERED: LEVOFLOXACIN 750MG/150ML D5W 750 MG/150 ML BAG IV STA (14:10)
[2021-01-25] MEDS ORDERED: LEVOFLOXACIN 750MG/150ML D5W 750 MG/150 ML BAG IV ONE (14:45)
[2021-01-25] MEDS ORDERED: solu-MEDROL 125 MG ONE (14:45)
[2021-01-25 15:20] VITALS: BP 134/82; O2SAT 93
== END 2021-01-25 15:41 | disposition short-term general hospital (02) ==
LOC: ED 12:21
DX: J96.21 Acute and chronic respiratory failure with hypoxia (principal); J44.1 Chronic obstructive pulmonary disease with (acute) exacerbation; N45.2 Orchitis; Z99.81 Dependence on supplemental oxygen; R07.9 Chest pain, unspecified; R00.0 Tachycardia, unspecified; Z79.899 Other long term (current) drug therapy; E11.9 Type 2 diabetes mellitus without complications; I10 Essential (primary) hypertension
CPT/HCPCS: 36000; 36415; 71045; 76870; 80053; 81001; 83605; 83735; 83880; 84484; 85025; 87040; 93005; 93041; 94640; 96365; 96374; 96375; 99285; 99291; J1940; J1956; J2930; A9270-GY

== ENCOUNTER 2021-03-24 08:54 | Inpatient (IN) | payer MEDICARE, SELFPAY ==
[2021-03-24] MEDS ORDERED: Zithromax 500 MG/ 250 ML NaCl Premix 500 MG/250 ML IVPB IV ONE ×2 (09:05→10:37)
--- NOTE | 2021-03-24 09:10 | ERPHSYRPT ---
- History of Present Illness Time Seen by Provider: 03/24/21 09:10 Source: patient Exam Limitations: no limitations Physician History: Patient is a 75-year-old male presents to our ED via EMS for evaluation of shortness of breath. Patient has history of COPD. Patient states that shortness of breath started 2 to 3 days ago. Shortness of breath has been progressive. Home health sees patient regularly. They advised him of the shortness of breath did not improve to come to our ED. Patient awoke this morning with worsening shortness of breath. Patient called 911 to be brought to the ED for evaluation and treatment. In route patient received 125 mg of Solu-Medrol. He also received albuterol and duo nebs. Patient requires 4 L nasal cannula 24 hours/day. Patient was hypoxic on his 4 L. However O2 sat in our ED at this time on 4 L is 95%. Patient complains of chest pressure. No kennedy pain. No nausea vomiting. No diaphoresis. No rash. Symptoms are pr ogressive. Symptoms are moderate in intensity. No specific worsening or improving factors. Patient voices no other complaints concerns at this time. Timing/Duration: day(s) (2 to 3 days) Activities at Onset: none Severity of Dyspnea-Max: moderate Severity of Dyspnea-Current: mild Possible Cause: occasional episodes Modifying Factors: Improves With: albuterol nebulizer Associated Symptoms: chest pain/discomfort, No fever, No calf pain Allergies/Adverse Reactions: nicotine [From Nicoderm CQ] Allergy (Severe, Verified 01/25/21 12:33) Rash Home Medications: Albuterol 2.5 mg/3 ml Neb [Proventil 2.5 mg/3 ml Neb] 1 neb IH Q6H 02/04/14 [History] Aspirin 81 mg PO DAILY 02/04/14 [History] Metformin HCl 500 mg [Glucophage 500 MG] 500 mg PO BIDWM 02/04/14 [History] Omeprazole 20 MG [Prilosec 20 mg] 20 mg PO BIDAC 02/04/14 [History] Nitroglycerin 0.4 mg Tablet [Nitrostat 0.4 MG Tablet] 0.4 mg SL Q5MIN PRN MR X 3 PRN 08/01/16 [History] ALPRAZolam 1 MG [Xanax 1 mg] 1 mg PO BID 10/14/18 [History] Theophylline Anhydrous 300 mg PO BID 10/14/18 [History] Albuterol Common Canister [Ventolin Common Canister] 2 puff IH Q6HPRN PRN 06/01/20 [History] Isosorbide Mononitrate 60 mg [Imdur 60MG] 60 mg PO DAILY 06/01/20 [History] Metoprolol Tartrate 25 mg [Lopressor 25MG Tab] 25 mg PO BID 06/01/20 [History] Polyvinyl Alcohol Tears [Artificial Tears 15 ML] 1 drop OP Q4H PRN PRN 06/01/20 [History] Rosuvastatin Calcium 20 mg PO HS 06/01/20 [History] Pramipexole Di-HCl [Mirapex ER] 2.25 mg PO DAILY 01/25/21 [History] Prednisone 5 mg [Deltasone 5 mg] 5 mg PO DAILY 01/25/21 [History] Sacubitril/Valsartan [Entresto 24 mg-26 mg Tablet] 1 each PO DAILY 01/25/21 [History] Spironolactone 25 mg [Aldactone 25 MG] 25 mg PO DAILY 01/25/21 [History] Hx Tetanus, Diphtheria Vaccination/Date Given: No Hx Influenza Vaccination/Date Given: Yes Hx Pneumococcal Vaccination/Date Given: Yes Travel Risk - Vaccine Status Have you recieved a Covid-19 vaccination: No - Review of Systems All Other Systems: Unable due to condition - Past Medical History Pertinent Past Medical History: Yes Neurological History: No Pertinent History ENT History: No Pertinent History Cardiac History: Aneurysm, Hypertension Respiratory History: COPD, Sleep Apnea Endocrine Medical History: Diabetes Type II Musculoskeletal History: No Pertinent History GI Medical History: No Pertinent History, GERD History: No Pertinent History Psycho-Social History: Anxiety Male Reproductive Disorders: No Pertinent History Other Medical History: 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 Pt also states he had an increase of SOB and chest pain that he has seen Dr. Mallory for and he has been put on nitro. PT wears 4L O2 AT ALL TIMES - Past Surgical History Past Surgical History: Yes Neuro Surgical History: No Pertinent History Cardiac: No Pertinent History Respiratory: Other Gastrointestinal: Hernia Repair Genitourinary: No Pertinent History Musculoskeletal: Orthopedic Surgery Male Surgical History: Vasectomy Other Surgical History: BACK SURGERY, and ear surgery and a left lung biopsy. 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 - Social History Smoking Status: Former smoker How long have you smoked: 40 + Exposure to second hand smoke: No Drug Use: none Patient Lives Alone: No - Nursing Vital Signs Nursing Vital Signs: Initial Vital Signs Temperature 99.4 F 03/24/21 08:57 Pulse Rate 120 H 03/24/21 08:57 Respiratory Rate 26 H 03/24/21 08:57 Blood Pressure 125/83 03/24/21 08:57 O2 Sat by Pulse Oximetry 95 03/24/21 08:57 Pain Scale Pain Intensity 0 - Physical Exam General Appearance: mild distress, alert Eye Exam: PERRL/EOMI, eyes nml inspection Ears, Nose, Throat Exam: hearing grossly normal, normal ENT inspection Neck Exam: normal inspection, supple Cardiovascular/Chest Exam: normal heart sounds, regular rate/rhythm Abdominal/Gastrointestinal Exam: soft, No tenderness, No distention, No mass Extremity Exam: non-tender, normal range of motion, normal inspection, no calf tenderness, no pedal edema Neurologic Exam: alert, oriented x 3, cooperative, sap analyst II-XII nml as tested, sensation nml, No motor deficits Skin Exam: normal color, warm, No dry Lymphatic Exam: No adenopathy SpO2 Interpretation: normal SpO2: 95 O2 Delivery: Nasal Cannula - Course Nursing assessment & vital signs reviewed: Yes EKG Interpreted by Me: RATE ([id number]), Sinus Tach, NORMAL AXIS, Right Bundle Branch Block Ordered Tests: Active Orders 24 hr Category Date Time Status Optical Fabrication Technician STAT Care 03/24/21 09:02 Active EKG-ER Only STAT Care 03/24/21 09:01 Active IV Insertion STAT Care 03/24/21 09:01 Active Pulse Oximetry (ED) STAT Care 03/24/21 09:01 Active CHEST 1 VIEW (PORTABLE) Stat Exams 03/24/21 09:02 Completed BLOOD CULTURE Stat Lab 03/24/21 09:50 Received CBC W DIFF Stat Lab 03/24/21 09:03 Completed CMP Stat Lab 03/24/21 09:03 Completed INFLUENZA A+B SYED Stat Lab 03/24/21 09:41 Completed Lactic Acid Stat Lab 03/24/21 09:10 Completed NT PRO BNP Stat Lab 03/24/21 09:03 Completed TROPONIN Q3H Lab 03/24/21 09:03 Completed TROPONIN Q3H Lab 03/24/21 12:15 Ordered TROPONIN Q3H Lab 03/24/21 15:15 Ordered TROPONIN Q3H Lab 03/24/21 18:15 Ordered TROPONIN Q3H Lab 03/24/21 21:15 Ordered Respiratory Therapy Assessment DAILY RT 03/25/21 07:00 Completed Transfer Order Routine Transfer 03/24/21 Ordered Medication Summary Generic Name Dose Route Start Last Admin Trade Name Freq PRN Reason Stop Dose Admin Albuterol Sulfate 2.5 mg 03/24/21 15:00 03/24/21 11:27 Proventil 2.5 Mg/3 Ml Neb IH 04/23/21 14:59 2.5 mg Q4HRT FAHEEM Administration Ceftriaxone Sodium/Dextrose 2 g in 50 mls @ 100 mls/hr 03/24/21 10:00 03/24/21 10:32 Rocephin 2 Gm-D5w 50ml Bag IV 03/27/21 09:59 Infused Q24H10 FAHEEM Infusion Discontinued Medications Generic Name Dose Route Start Last Admin Trade Name Freq PRN Reason Stop Dose Admin Albuterol Sulfate Confirm 03/24/21 11:23 Proventil 2.5 Mg/3 Ml Neb Administered 03/24/21 11:24 Dose 2.5 mg IH .STK-MED ONE Azithromycin 500 mg in 250 mls @ 250 mls/hr 03/24/21 09:05 03/24/21 10:40 Zithromax 500 Mg/ 250 Ml Nacl Premix IV 03/24/21 10:04 250 mls/hr STAT ONE Administration Azithromycin Confirm 03/24/21 10:37 Zithromax 500 Mg/ 250 Ml Nacl Premix Administered 03/24/21 10:38 Dose 500 mg in 250 mls @ ud IV .STK-MED ONE Lab/Rad Data: Laboratory Result Diagrams 03/24/21 09:03 03/24/21 09:03 Laboratory Results 03/24/21 03/24/21 03/24/21 Range/Units 10:12 09:41 09:10 WBC (4.0-10.5) K/mm3 RBC (4.1-5.6) M/mm3 Hgb (12.5-18.0) gm/dl Hct (42-50) % MCV (78-100) fl MCH (26-32) pg MCHC (32-36) g/dl RDW (11.5-14.0) % Plt Count (150-450) K/mm3 MPV (7.5-11.0) fl Gran % (36.0-66.0) % Eos # (Auto) (0-0.5) Absolute Lymphs (auto) (1.0-4.6) Absolute Monos (auto) (0.0-1.3) Lymphocytes % (24.0-44.0) % Monocytes % (0.0-12.0) % Eosinophils % (0.00-5.0) % Basophils % (0.0-0.4) % Absolute Granulocytes (1.4-6.9) Basophils # (0-0.4) Sodium (137-145) mmol/L Potassium (3.5-5.1) mmol/L Chloride (98-107) mmol/L Carbon Dioxide (22-30) mmol/L Anion Gap (5-15) MEQ/L BUN (9-20) mg/dL Creatinine (0.66-1.25) mg/dL Estimated GFR ML/MIN Glucose (74-106) mg/dL Lactic Acid 0.8 (0.4-2.0) Calcium (8.4-10.2) mg/dL Total Bilirubin (0.2-1.3) mg/dL AST (17-59) U/L ALT (0-50) U/L Alkaline Phosphatase (38-126) U/L Troponin I (0.000-0.034) ng/mL NT-Pro-B Natriuret Pep (0-900) pg/mL Serum Total Protein (6.3-8.2) g/dL Albumin (3.5-5.0) g/dL Influenza Type A Ag NEGATIVE (NEGATIVE) Influenza Type B Ag NEGATIVE (NEGATIVE) SARS-CoV-2 (PCR) NEGATIVE (NEGATIVE) 03/24/21 03/24/21 03/24/21 Range/Units 09:03 09:03 09:03 WBC 14.1 H (4.0-10.5) K/mm3 RBC 5.22 (4.1-5.6) M/mm3 Hgb 13.4 (12.5-18.0) gm/dl Hct 42.3 (42-50) % MCV 81.0 (78-100) fl MCH 25.7 L (26-32) pg MCHC 31.7 L (32-36) g/dl RDW 17.1 H (11.5-14.0) % Plt Count 297 (150-450) K/mm3 MPV 9.3 (7.5-11.0) fl Gran % 83.0 H (36.0-66.0) % Eos # (Auto) 0.04 (0-0.5) Absolute Lymphs (auto) 1.17 (1.0-4.6) Absolute Monos (auto) 1.17 (0.0-1.3) Lymphocytes % 8.3 L (24.0-44.0) % Monocytes % 8.3 (0.0-12.0) % Eosinophils % 0.3 (0.00-5.0) % Basophils % 0.1 (0.0-0.4) % Absolute Granulocytes 11.69 H (1.4-6.9) Basophils # 0.01 (0-0.4) Sodium 136 L (137-145) mmol/L Potassium 4.0 (3.5-5.1) mmol/L Chloride 99 (98-107) mmol/L Carbon Dioxide 25 (22-30) mmol/L Anion Gap 16.0 H (5-15) MEQ/L BUN 11 (9-20) mg/dL Creatinine 0.61 L (0.66-1.25) mg/dL Estimated GFR > 60.0 ML/MIN Glucose 120 H (74-106) mg/dL Lactic Acid (0.4-2.0) Calcium 9.4 (8.4-10.2) mg/dL Total Bilirubin 1.20 (0.2-1.3) mg/dL AST 23 (17-59) U/L ALT 15 (0-50) U/L Alkaline Phosphatase 54 (38-126) U/L Troponin I < 0.012 (0.000-0.034) ng/mL NT-Pro-B Natriuret Pep 1870 H (0-900) pg/mL Serum Total Protein 7.1 (6.3-8.2) g/dL Albumin 4.1 (3.5-5.0) g/dL Influenza Type A Ag (NEGATIVE) Influenza Type B Ag (NEGATIVE) SARS-CoV-2 (PCR) (NEGATIVE) - Progress Progress: improved Air Movement: fair Progress Note: Patient reassessed. He feels better. Chest x-ray negative for acute cardiopulmonary process. DuoNeb administered. Covid negative. Slight leukocytosis likely due to steroid administration by EMS. Blood cultures obtained. Antibiotics infused. Patient will require continuous monitoring and treatment. Case discussed with Dr. Maza who accepts admission to observation. Plan of care discussed with patient. He agrees to admission at [facility] for further evaluation and treatment. 03/24/21 11:37 BNP slightly elevated. 20 of Lasix administered. 03/24/21 11:39 Blood Culture(s) Obtained: Yes Antibiotics given: Yes Discussed with Dr.: Edwin Will see patient in: hospital (observation) Counseled pt/family regarding: lab results, diagnosis, rad results - Departure Departure Disposition: Observation Clinical Impression: Elevated brain natriuretic peptide (BNP) level, COPD exacerbation, Leukocytosis, Hypoxia Condition: Stable Critical Care Time: No Referrals: KRUPA MAZA MD [Primary Care Provider] - Instructions: Chronic Obstructive Pulmonary Disease
[2021-03-24 09:19] LABS: Absolute Neutrophil Ct (ANC) 11.69 (1.4-6.9); BASOPHIL % 0.1 % (0.0-0.4); Basophil (Absolute #) 0.01 (0-0.4); Eosinophil % 0.3 % (0.00-5.0); Eosinophil (Absolute #) 0.04 (0-0.5); Hematocrit 42.3 % (42-50); Hemoglobin 13.4 gm/dl (12.5-18.0); Lymphocyte (Absolute #) 1.17 (1.0-4.6); Lymphocytes % 8.3 % (24.0-44.0); Mean Corpuscular Hemoglobin 25.7 pg (26-32); Mean Corpuscular Hgb Concent. 31.7 g/dl (32-36); Mean Platelet Volume 9.3 fl (7.5-11.0); Monocyte (Absolute #) 1.17 (0.0-1.3); Monocytes % 8.3 % (0.0-12.0); Platelet Count 297 K/mm3 (150-450); Red Blood Count 5.22 M/mm3 (4.1-5.6); Red Cell Distribution Width 17.1 % (11.5-14.0); White Blood Count 14.1 K/mm3 (4.0-10.5)
--- NOTE | 2021-03-24 09:33 | XRAY ---
Indication: Short of breath. Comparison: January 25, 2021. Portable chest again demonstrates COPD, left upper lung suture material, and bibasilar fibrosis/scarring. Heart not enlarged. Bony thorax intact again with osteopenia and degenerative changes. Impression: Continued nonacute chest with chronic features.
[2021-03-24 09:41] LABS: ALBUMIN 4.1 g/dL (3.5-5.0); ALKALINE PHOSPHATASE 54 U/L (38-126); BLOOD UREA NITROGEN 11 mg/dL (9-20); CHLORIDE 99 mmol/L (98-107); Calcium 9.4 mg/dL (8.4-10.2); Carbon Dioxide 25 mmol/L (22-30); Creatinine 1 0.61 mg/dL (0.66-1.25); EST GLOMERULAR FILTRATION RATE > 60.0 ML/MIN; Glucose 120 mg/dL (74-106); NT PRO BNP 1870 pg/mL (0-900); SGOT/AST 23 U/L (17-59); SGPT/ALT 15 U/L (0-50); SODIUM 136 mmol/L (137-145); Total Protein 7.1 g/dL (6.3-8.2)
[2021-03-24] MEDS ORDERED: ROCEPHIN 2 Gm-D5w 50ML BAG** 2 G/50 ML IVPB IV SCH (10:00)
[2021-03-24 10:36] LABS: INFLUENZA A NEGATIVE (NEGATIVE); INFLUENZA B NEGATIVE (NEGATIVE)
[2021-03-24] MEDS ORDERED: PROVENTIL 2.5 MG/3 ML NEB IH ONE (11:23)
[2021-03-24] MEDS ORDERED: Lasix 20 MG/2 ML IV STA (11:38)
[2021-03-24] MEDS ORDERED: Lasix 40 MG/4 ML ONE (11:38)
[2021-03-24] MEDS ORDERED: PROVENTIL 2.5 MG/3 ML NEB IH SCH ×2 (12:30→15:00)
[2021-03-24] MEDS ORDERED: Artificial Tears 15 ML OP PRN (12:37)
[2021-03-24] MEDS ORDERED: Nitrostat 0.4 MG Tablet SL PRN (12:37)
[2021-03-24] MEDS: solu-MEDROL 60 MG, Sterile H2O 10 ml 2 ML IV SCH ×6 (13:16→23:39)
[2021-03-24] MEDS: ENTRESTO 49 MG-51 MG TABLET PO SCH ×2 (13:17→20:35)
[2021-03-24] MEDS: Lopressor 25MG Tab PO SCH ×2 (13:17→20:31)
[2021-03-24] MEDS: XANAX 1 MG PO SCH ×2 (13:17→20:34)
[2021-03-24] MEDS: Imdur 60MG PO SCH (13:17)
[2021-03-24] MEDS: THEOPHYLLINE ER 24HR PO SCH ×2 (13:17→20:34)
[2021-03-24] MEDS: ECOTRIN 81 MG PO SCH (13:17)
[2021-03-24] MEDS: Aldactone 25 MG PO SCH (13:17)
[2021-03-24] MEDS: DUONEB 0.5-3 MG/3 ml Neb IH SCH ×3 (14:10→22:41)
[2021-03-24] MEDS ORDERED: MEDICATION INTERVENTION MC SCH (14:15)
[2021-03-24] MEDS: Protonix 40MG Tablet PO SCH (16:27)
[2021-03-24] MEDS ORDERED: NON-FORMULARY ITEM (Omeprazole 20 Mg [Prilosec 20 Mg] 20 MG) PO SCH (16:30)
[2021-03-24] MEDS: Glucophage 500 MG PO SCH (17:25)
[2021-03-24] MEDS: ZOCOR 20MG PO SCH (20:33)
[2021-03-24] MEDS: Mirapex 0.5 MG Tablet PO SCH (20:34)
[2021-03-24] MEDS ORDERED: NON-FORMULARY ITEM (Rosuvastatin Calcium [Rosuvastatin Calcium] 20 MG) PO SCH (22:00)
[2021-03-24] MEDS ORDERED: GLYCOPYR IH SCH (22:00)
[2021-03-24] MEDS ORDERED: SACUBITRIL PO SCH (22:00)
[2021-03-24] MEDS ORDERED: [UNRECOGNIZED DRUG - OTHER] IH SCH (22:00)
[2021-03-24] MEDS ORDERED: VALSARTAN PO SCH (22:00)
[2021-03-24] MEDS ORDERED: NON-FORMULARY ITEM (Theophylline Anhydrous [Theophylline Anhydrous] 300 MG) PO SCH (22:00)
[2021-03-24] MEDS ORDERED: BUDESONIDE IH SCH (22:00)
[2021-03-24] MEDS ORDERED: FORMOTEROL IH SCH (22:00)
[2021-03-25] MEDS: DUONEB 0.5-3 MG/3 ml Neb IH SCH ×5 (02:34→22:28)
[2021-03-25] MEDS: solu-MEDROL 60 MG, Sterile H2O 10 ml 2 ML IV SCH ×6 (05:48→17:09)
[2021-03-25 05:56] LABS: Hematocrit 36.3 % (42-50); Hemoglobin 11.2 gm/dl (12.5-18.0); Mean Cell Volume 82.1 fl (78-100); Mean Corpuscular Hemoglobin 25.3 pg (26-32); Mean Corpuscular Hgb Concent. 30.9 g/dl (32-36); Mean Platelet Volume 9.7 fl (7.5-11.0); Platelet Count 288 K/mm3 (150-450); Red Blood Count 4.42 M/mm3 (4.1-5.6); Red Cell Distribution Width 16.8 % (11.5-14.0); White Blood Count 9.8 K/mm3 (4.0-10.5)
[2021-03-25 06:09] LABS: ALBUMIN 3.5 g/dL (3.5-5.0); ALKALINE PHOSPHATASE 40 U/L (38-126); ANION GAP 10.9 MEQ/L (5-15); BLOOD UREA NITROGEN 13 mg/dL (9-20); CHLORIDE 97 mmol/L (98-107); Calcium 8.9 mg/dL (8.4-10.2); Carbon Dioxide 31 mmol/L (22-30); Creatinine 1 0.58 mg/dL (0.66-1.25); EST GLOMERULAR FILTRATION RATE > 60.0 ML/MIN; Glucose 163 mg/dL (74-106); Potassium 4.1 mmol/L (3.5-5.1); SGOT/AST 21 U/L (17-59); SGPT/ALT 13 U/L (0-50); SODIUM 135 mmol/L (137-145); Total Protein 6.4 g/dL (6.3-8.2)
[2021-03-25] MEDS: Glucophage 500 MG PO SCH ×2 (07:56→17:08)
[2021-03-25] MEDS: Protonix 40MG Tablet PO SCH ×2 (07:56→17:08)
[2021-03-25] MEDS: DELTASONE 5 MG PO SCH (09:38)
[2021-03-25] MEDS: Imdur 60MG PO SCH (09:38)
[2021-03-25] MEDS: ENTRESTO 49 MG-51 MG TABLET PO SCH ×2 (09:38→22:42)
[2021-03-25] MEDS: Lopressor 25MG Tab PO SCH ×2 (09:38→22:43)
[2021-03-25] MEDS: Aldactone 25 MG PO SCH (09:40)
[2021-03-25] MEDS: XANAX 1 MG PO SCH ×2 (09:40→22:46)
[2021-03-25] MEDS: ECOTRIN 81 MG PO SCH (09:40)
[2021-03-25] MEDS: Mirapex 0.5 MG Tablet PO SCH ×2 (09:40→22:43)
[2021-03-25] MEDS: THEOPHYLLINE ER 24HR PO SCH ×2 (09:41→22:46)
[2021-03-25] MEDS: Zithromax 500 MG/ 250 ML NaCl Premix 500 MG/250 ML IVPB IV SCH (09:46)
[2021-03-25] MEDS ORDERED: NON-FORMULARY ITEM (Aspirin [Aspirin] 81 MG) PO SCH (10:00)
[2021-03-25] MEDS ORDERED: PRAMIPEXOLE DI HCL 2.25 MG PO SCH (10:00)
[2021-03-25] MEDS: ROCEPHIN 1 Gm-D5w 50 ml Bag** 1 G/50 ML IVPB IV SCH (10:52)
--- NOTE | 2021-03-25 12:50 | PCM.HP ---
History of Present Illness - Chief Complaint Chief Complaint: c/o shortness of breath for 2-3 days History of Present Illness: is a 75 year old male.Patient states that shortness of breath started 2 to 3 days ago. Shortness of breath has been progressive. Home health sees patient regularly. They advised him of the shortness of breath did not improve to come to our ED. Patient awoke this morning with worsening shortness of breath. Patient called 911 to be brought to the ED for evaluation and treatment. In route patient received 125 mg of Solu-Medrol. He also received albuterol and duo nebs. Patient requires 4 L nasal cannula 24 hours/day. Patient was hypoxic on his 4 L. However O2 sat in our ED at this time on 4 L is 95%. Patient complains of chest pressure. No kennedy pain. No nausea vomiting. No diaphoresis. No rash. Symptoms are progressive. Symptoms are moderate in intensity. No specific worsening or improving factors. Patient voices no other complaints concerns at this time. - Review of Systems Constitutional: No Fever, No Chills Eyes: No Symptoms Ears, Nose, & Throat: No Symptoms Respiratory: Cough, Short Of Breath, Wheezing Cardiac: No Chest Pain, No Edema, No Syncope Abdominal/Gastrointestinal: No Abdominal Pain, No Nausea, No Vomiting, No Diarrhea Genitourinary Symptoms: No Dysuria Musculoskeletal: No Back Pain, No Neck Pain Skin: No Rash Neurological: No Dizziness, No Focal Weakness, No Sensory Changes Psychological: No Symptoms Endocrine: No Symptoms Hematologic/Lymphatic: No Symptoms Immunological/Allergic: No Symptoms Medications & Allergies Home Medications: Home Medication List Albuterol 2.5 mg/3 ml Neb [Proventil 2.5 mg/3 ml Neb] 1 neb IH Q6H PRN 02/04/14 [History Confirmed 03/24/21] Aspirin 81 mg PO DAILY 02/04/14 [History Confirmed 03/24/21] Metformin HCl 500 mg [Glucophage 500 MG] 500 mg PO BIDWM 02/04/14 [History Confirmed 03/24/21] Omeprazole 20 MG [Prilosec 20 mg] 20 mg PO BIDAC 02/04/14 [History Confirmed 03/24/21] Nitroglycerin 0.4 mg Tablet [Nitrostat 0.4 MG Tablet] 0.4 mg SL Q5MIN PRN MR X 3 PRN 08/01/16 [History Confirmed 03/24/21] ALPRAZolam 1 MG [Xanax 1 mg] 1 mg PO BID 10/14/18 [History Confirmed 03/24/21] Theophylline Anhydrous 300 mg PO BID 10/14/18 [History Confirmed 03/24/21] Albuterol Common Canister [Ventolin Common Canister] 2 puff IH Q6HPRN PRN 06/01/20 [History Confirmed 03/24/21] Isosorbide Mononitrate 60 mg [Imdur 60MG] 60 mg PO DAILY 06/01/20 [History Confirmed 03/24/21] Metoprolol Tartrate 25 mg [Lopressor 25MG Tab] 25 mg PO BID 06/01/20 [History Confirmed 03/24/21] Polyvinyl Alcohol Tears [Artificial Tears 15 ML] 1 drop OP Q4H PRN PRN 06/01/20 [History Confirmed 03/24/21] Rosuvastatin Calcium 20 mg PO HS 06/01/20 [History Confirmed 03/24/21] Pramipexole Di-HCl [Mirapex ER] 2.25 mg PO DAILY 01/25/21 [History Confirmed 03/24/21] Prednisone 5 mg [Deltasone 5 mg] 5 mg PO DAILY 01/25/21 [History Confirmed 03/24/21] Sacubitril/Valsartan [Entresto 24 mg-26 mg Tablet] 24 mg PO BID 01/25/21 [History Confirmed 03/24/21] Spironolactone 25 mg [Aldactone 25 MG] 12.5 mg PO DAILY 01/25/21 [History Confirmed 03/24/21] Albuterol Sulfate [Proair Digihaler] 2 puffs IH Q6H PRN 03/24/21 [History Confirmed 03/24/21] Budesonide/Glycopyr/Formoterol [Breztri Aerosphere Inhaler] 2 puffs IH BID 03/24/21 [History Confirmed 03/24/21] Allergies/Adverse Reactions: Allergies Allergy/AdvReac Type Severity Reaction Status Date / Time nicotine [From [facility]] Allergy Severe Rash Verified 01/25/21 12:33 - Past Medical History Past Medical History: Yes Neurological History: No Pertinent History ENT History: No Pertinent History Cardiac History: Aneurysm, Hypertension Respiratory History: COPD, Sleep Apnea Endocrine Medical History: Diabetes Type II Musculoskelatal History: No Pertinent History GI Medical History: No Pertinent History, GERD History: No Pertinent History Pyscho-Social History: Anxiety Male Reproductive Disorders: No Pertinent History Comment: 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 Pt also states he had an increase of SOB and chest pain that he has seen Dr. Mallory for and he has been put on nitro. PT wears 4L O2 AT ALL TIMES - Past Surgical History Past Surgical History: Yes Neuro Surgical History: No Pertinent History Cardiac History: No Pertinent History Respiratory Surgery: Other GI Surgical History: Hernia Repair Genitourinary Surgical Hx: No Pertinent History Musculskeletal Surgical Hx: Orthopedic Surgery Male Surgical History: Vasectomy Other Surgical History: BACK SURGERY, and ear surgery and a left lung biopsy. 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 - Social History Smoking Status: Former smoker How long have you smoked: 40 + Exposure to second hand smoke: No Alcohol: None Drug Use: none - Physical Exam Vital Signs: Vital Signs - 24 hr Temp Pulse Resp BP Pulse Ox 03/25/21 10:35 88 24 96 03/25/21 09:00 95 03/25/21 08:00 97.2 F 88 27 H 119/65 95 03/25/21 05:22 82 18 91 L 03/25/21 04:00 97.9 F 100 H 21 132/58 93 L 03/25/21 02:36 71 18 91 L 03/25/21 02:30 92 L 03/24/21 23:45 97.0 F 69 19 100/56 95 03/24/21 22:48 82 18 89 L 03/24/21 20:08 92 L 03/24/21 19:26 97.4 F 80 18 95/54 93 L 03/24/21 16:59 93 L 03/24/21 16:52 78 22 88 L 03/24/21 16:00 98.3 F 93 H 26 H 99/57 93 L 03/24/21 14:18 99 H 24 92 L General Appearance: no apparent distress, alert Neurologic Exam: alert, oriented x 3, cooperative, normal mood/affect, nml cerebellar function, nml station & gait, sensation nml, No motor deficits Eye Exam: PERRL/EOMI, eyes nml inspection Ears, Nose, Throat Exam: normal ENT inspection, TMs normal, pharynx normal, moist mucous membranes Neck Exam: normal inspection, non-tender, supple, full range of motion Respiratory Exam: diminished breath sounds, crackles/rales, rhonchi, wheezing, No respiratory distress Cardiovascular Exam: regular rate/rhythm, normal heart sounds, normal peripheral pulses Gastrointestinal/Abdomen Exam: soft, normal bowel sounds, No tenderness, No mass Back Exam: normal inspection, normal range of motion, No CVA tenderness, No vertebral tenderness Extremity Exam: normal inspection, normal range of motion, pelvis stable Skin Exam: normal color, warm, dry, No rash Lymphatic Exam: No adenopathy Results - Labs Lab/Micro Results: Lab Results-Last 24 Hours 03/24/21 03/24/21 03/24/21 Range/Units 12:10 15:02 16:08 WBC (4.0-10.5) K/mm3 RBC (4.1-5.6) M/mm3 Hgb (12.5-18.0) gm/dl Hct (42-50) % MCV (78-100) fl MCH (26-32) pg MCHC (32-36) g/dl RDW (11.5-14.0) % Plt Count (150-450) K/mm3 MPV (7.5-11.0) fl Sodium (137-145) mmol/L Potassium (3.5-5.1) mmol/L Chloride (98-107) mmol/L Carbon Dioxide (22-30) mmol/L Anion Gap (5-15) MEQ/L BUN (9-20) mg/dL Creatinine (0.66-1.25) mg/dL Estimated GFR ML/MIN Glucose (74-106) mg/dL POC Glucometer 224 H (74 to 106) mg/dL Hemoglobin A1c (4.5-6.0) % Calcium (8.4-10.2) mg/dL Total Bilirubin (0.2-1.3) mg/dL AST (17-59) U/L ALT (0-50) U/L Alkaline Phosphatase (38-126) U/L Troponin I < 0.012 < 0.012 (0.000-0.034) ng/mL Serum Total Protein (6.3-8.2) g/dL Albumin (3.5-5.0) g/dL 03/24/21 03/24/21 03/24/21 Range/Units 17:00 18:40 20:34 WBC (4.0-10.5) K/mm3 RBC (4.1-5.6) M/mm3 Hgb (12.5-18.0) gm/dl Hct (42-50) % MCV (78-100) fl MCH (26-32) pg MCHC (32-36) g/dl RDW (11.5-14.0) % Plt Count (150-450) K/mm3 MPV (7.5-11.0) fl Sodium (137-145) mmol/L Potassium (3.5-5.1) mmol/L Chloride (98-107) mmol/L Carbon Dioxide (22-30) mmol/L Anion Gap (5-15) MEQ/L BUN (9-20) mg/dL Creatinine (0.66-1.25) mg/dL Estimated GFR ML/MIN Glucose (74-106) mg/dL POC Glucometer 204 H (74 to 106) mg/dL Hemoglobin A1c 6.29 H (4.5-6.0) % Calcium (8.4-10.2) mg/dL Total Bilirubin (0.2-1.3) mg/dL AST (17-59) U/L ALT (0-50) U/L Alkaline Phosphatase (38-126) U/L Troponin I < 0.012 (0.000-0.034) ng/mL Serum Total Protein (6.3-8.2) g/dL Albumin (3.5-5.0) g/dL 03/24/21 03/25/21 03/25/21 Range/Units 21:17 04:29 05:00 WBC 9.8 (4.0-10.5) K/mm3 RBC 4.42 (4.1-5.6) M/mm3 Hgb 11.2 L (12.5-18.0) gm/dl Hct 36.3 L (42-50) % MCV 82.1 (78-100) fl MCH 25.3 L (26-32) pg MCHC 30.9 L (32-36) g/dl RDW 16.8 H (11.5-14.0) % Plt Count 288 (150-450) K/mm3 MPV 9.7 (7.5-11.0) fl Sodium 135 L (137-145) mmol/L Potassium 4.1 (3.5-5.1) mmol/L Chloride 97 L (98-107) mmol/L Carbon Dioxide 31 H (22-30) mmol/L Anion Gap 10.9 (5-15) MEQ/L BUN 13 (9-20) mg/dL Creatinine 0.58 L (0.66-1.25) mg/dL Estimated GFR > 60.0 ML/MIN Glucose 163 H (74-106) mg/dL POC Glucometer (74 to 106) mg/dL Hemoglobin A1c (4.5-6.0) % Calcium 8.9 (8.4-10.2) mg/dL Total Bilirubin 0.60 (0.2-1.3) mg/dL AST 21 (17-59) U/L ALT 13 (0-50) U/L Alkaline Phosphatase 40 (38-126) U/L Troponin I < 0.012 (0.000-0.034) ng/mL Serum Total Protein 6.4 (6.3-8.2) g/dL Albumin 3.5 (3.5-5.0) g/dL 03/25/21 03/25/21 Range/Units 07:35 11:28 WBC (4.0-10.5) K/mm3 RBC (4.1-5.6) M/mm3 Hgb (12.5-18.0) gm/dl Hct (42-50) % MCV (78-100) fl MCH (26-32) pg MCHC (32-36) g/dl RDW (11.5-14.0) % Plt Count (150-450) K/mm3 MPV (7.5-11.0) fl Sodium (137-145) mmol/L Potassium (3.5-5.1) mmol/L Chloride (98-107) mmol/L Carbon Dioxide (22-30) mmol/L Anion Gap (5-15) MEQ/L BUN (9-20) mg/dL Creatinine (0.66-1.25) mg/dL Estimated GFR ML/MIN Glucose (74-106) mg/dL POC Glucometer 136 H 161 H (74 to 106) mg/dL Hemoglobin A1c (4.5-6.0) % Calcium (8.4-10.2) mg/dL Total Bilirubin (0.2-1.3) mg/dL AST (17-59) U/L ALT (0-50) U/L Alkaline Phosphatase (38-126) U/L Troponin I (0.000-0.034) ng/mL Serum Total Protein (6.3-8.2) g/dL Albumin (3.5-5.0) g/dL Accuchecks Date 03/24/21 Time 22:00 - Radiology Impressions Radiology Exams & Impressions: Radiology Procedures Category Date Time Status CHEST 1 VIEW (PORTABLE) Stat Exams 03/24/21 09:02 Completed - Other Procedures and Tests Respiratory Therapy 03/24/21 13:44 Oxygen NASAL CANNULA 4 lpm 03/24/21 13:45 Respiratory Therapy Assessment DAILY Assessment/Plan (1) COPD exacerbation Current Visit: Yes Status: Acute Assessment & Plan: Chief Complaint Diagnosis COPD exacerbation Allergies Allergy/AdvReac Type Severity Reaction Status Date / Time nicotine [From [facility]] Allergy Severe Rash Verified 01/25/21 12:33 Vital Signs (Last 24 hours) Temp Pulse Resp BP Pulse Ox 03/25/21 10:35 88 24 96 03/25/21 09:00 95 03/25/21 08:00 97.2 F 88 27 H 119/65 95 03/25/21 05:22 82 18 91 L 03/25/21 04:00 97.9 F 100 H 21 132/58 93 L 03/25/21 02:36 71 18 91 L 03/25/21 02:30 92 L 03/24/21 23:45 97.0 F 69 19 100/56 95 03/24/21 22:48 82 18 89 L 03/24/21 20:08 92 L 03/24/21 19:26 97.4 F 80 18 95/54 93 L 03/24/21 16:59 93 L 03/24/21 16:52 78 22 88 L 03/24/21 16:00 98.3 F 93 H 26 H 99/57 93 L 03/24/21 14:18 99 H 24 92 L Home Medications Medication Instructions Recorded Confirmed Last Taken Type Albuterol Sulfate [Proair 2 puffs IH Q6H PRN 03/24/21 03/24/21 03/23/21 History Digihaler] Budesonide/Glycopyr/Formoterol 2 puffs IH BID 03/24/21 03/24/21 03/23/21 History [Breztri Aerosphere Inhaler] Current Medications Generic Name Dose Route Start Last Admin Trade Name Freq PRN Reason Stop Dose Admin Albuterol/Ipratropium 3 ml 03/24/21 15:00 03/25/21 10:30 Duoneb 0.5-3 Mg/3 Ml Neb IH 04/23/21 14:59 3 ml Q4HRT FAHEEM Administration Alprazolam 1 mg 03/24/21 13:00 03/25/21 09:40 Xanax 1 Mg PO 04/23/21 12:59 1 mg BID FAHEEM Administration Artificial Tears 0 ml 03/24/21 12:37 Artificial Tears 15 Ml OP 04/23/21 12:36 Q4H PRN PRN dry eyes Aspirin 81 mg 03/24/21 13:00 03/25/21 09:40 Ecotrin 81 Mg PO 04/23/21 12:59 81 mg DAILY FAHEEM Administration Methylprednisolone Sodium 0 mg 03/24/21 12:30 03/25/21 11:16 Succinate 60 mg/ Sterile Water IV 04/23/21 12:29 60 mg 2 ml Q6HT FAHEEM Administration Ceftriaxone Sodium/Dextrose 1 g in 50 mls @ 100 mls/hr 03/25/21 10:00 03/25/21 10:52 Rocephin 1 Gm-D5w 50 Ml Bag IV 03/28/21 09:59 100 mls/hr Q24H10 FAHEEM Administration Azithromycin 500 mg in 250 mls @ 250 mls/hr 03/25/21 10:00 03/25/21 09:46 Zithromax 500 Mg/ 250 Ml Nacl Premix IV 04/24/21 09:59 250 mls/hr Q24H10 FAHEEM Administration Isosorbide Mononitrate 60 mg 03/24/21 13:00 03/25/21 09:38 Imdur 60mg PO 04/23/21 12:59 60 mg DAILY FAHEEM Administration Metformin HCl 500 mg 03/24/21 17:00 03/25/21 07:56 Glucophage 500 Mg PO 04/23/21 16:59 500 mg BIDWM AFHEEM Administration Metoprolol Tartrate 25 mg 03/24/21 13:00 03/25/21 09:38 Lopressor 25mg Tab PO 04/23/21 12:59 25 mg BID FAHEEM Administration Miscellaneous Information 0 each 03/24/21 14:15 Medication Intervention 04/23/21 14:14 .RN TO CHECK WITH PT FAHEEM Nitroglycerin 0.4 mg 03/24/21 12:37 Nitrostat 0.4 Mg Tablet SL 04/23/21 12:36 Q5MIN PRN MR X 3 PRN CHEST PAIN Pantoprazole Sodium 40 mg 03/24/21 16:30 03/25/21 07:56 Protonix 40mg Tablet PO 04/23/21 16:29 40 mg BIDAC FAHEEM Administration Pramipexole Dihydrochloride 1.125 mg 03/24/21 22:00 03/25/21 09:40 Mirapex 0.5 Mg Tablet PO 04/23/21 21:59 1.125 mg BID FAHEEM Administration Prednisone 5 mg 03/25/21 10:00 03/25/21 09:38 Deltasone 5 Mg PO 04/24/21 09:59 5 mg DAILY FAHEEM Administration Sacubitril/Valsartan 0.5 tablet 03/24/21 13:00 03/25/21 09:38 Entresto 49 Mg-51 Mg Tablet PO 04/23/21 12:59 0.5 tablet BID FAHEEM Administration Simvastatin 40 mg 03/24/21 22:00 03/24/21 20:33 Zocor 20mg PO 04/23/21 21:59 40 mg HS FAHEEM Administration Spironolactone 12.5 mg 03/24/21 12:45 03/25/21 09:40 Aldactone 25 Mg PO 04/23/21 12:44 12.5 mg DAILY FAHEEM Administration Theophylline 300 mg 03/24/21 13:00 03/25/21 09:41 Theophylline Er 24hr PO 04/23/21 12:59 300 mg BID FAHEEM Administration Discontinued Medications Generic Name Dose Route Start Last Admin Trade Name Simón PRN Reason Stop Dose Admin Albuterol Sulfate Confirm 03/24/21 11:23 Proventil 2.5 Mg/3 Ml Neb Administered 03/24/21 11:24 Dose 2.5 mg IH .STK-MED ONE Albuterol Sulfate 2.5 mg 03/24/21 15:00 03/24/21 11:27 Proventil 2.5 Mg/3 Ml Neb IH 04/23/21 14:59 2.5 mg Q4HRT FAHEEM Administration Albuterol Sulfate 2.5 mg 03/24/21 12:30 Proventil 2.5 Mg/3 Ml Neb IH 04/23/21 12:29 Q4HRT FAHEEM Furosemide 20 mg 03/24/21 11:38 03/24/21 11:41 Lasix 20 Mg/2 Ml IV 03/24/21 11:39 20 mg ONCE STA Administration Furosemide Confirm 03/24/21 11:38 Lasix 40 Mg/4 Ml Administered 03/24/21 11:39 Dose 40 mg .ROUTE .STK-MED ONE Ceftriaxone Sodium/Dextrose 2 g in 50 mls @ 100 mls/hr 03/24/21 10:00 03/24/21 10:32 Rocephin 2 Gm-D5w 50ml Bag IV 03/27/21 09:59 Infused Q24H10 FAHEEM Infusion Azithromycin 500 mg in 250 mls @ 250 mls/hr 03/24/21 09:05 03/24/21 10:40 Zithromax 500 Mg/ 250 Ml Nacl Premix IV 03/24/21 10:04 250 mls/hr STAT ONE Administration Azithromycin Confirm 03/24/21 10:37 Zithromax 500 Mg/ 250 Ml Nacl Premix Administered 03/24/21 10:38 Dose 500 mg in 250 mls @ ud IV .STK-MED ONE Intake & Output (Last 24 hours) 03/23/21 03/24/21 03/25/21 03/26/21 11:59 11:59 11:59 11:59 Intake Total 1660 Output Total 1850 Balance -190 Weight 77.564 kg 79.4 kg Microbiology Results (Last 24 hours) 03/24/21 09:50 Blood Blood Culture Gram Stain - Pending 03/24/21 09:50 Blood Blood Culture - Pending 03/24/21 09:45 Blood Blood Culture Gram Stain - Pending 03/24/21 09:45 Blood Blood Culture - Pending Laboratory Results (Last 24 hours) 03/25/21 03/25/21 03/25/21 11:28 07:35 05:00 WBC 9.8 RBC 4.42 Hgb 11.2 L Hct 36.3 L MCV 82.1 MCH 25.3 L MCHC 30.9 L RDW 16.8 H Plt Count 288 MPV 9.7 Sodium Potassium Chloride Carbon Dioxide Anion Gap BUN Creatinine Estimated GFR Glucose POC Glucometer 161 H 136 H Hemoglobin A1c Calcium Total Bilirubin AST ALT Alkaline Phosphatase Troponin I Serum Total Protein Albumin 03/25/21 03/24/21 03/24/21 04:29 21:17 20:34 WBC RBC Hgb Hct MCV MCH MCHC RDW Plt Count MPV Sodium 135 L Potassium 4.1 Chloride 97 L Carbon Dioxide 31 H Anion Gap 10.9 BUN 13 Creatinine 0.58 L Estimated GFR > 60.0 Glucose 163 H POC Glucometer 204 H Hemoglobin A1c Calcium 8.9 Total Bilirubin 0.60 AST 21 ALT 13 Alkaline Phosphatase 40 Troponin I < 0.012 Serum Total Protein 6.4 Albumin 3.5 03/24/21 03/24/21 03/24/21 18:40 17:00 16:08 WBC RBC Hgb Hct MCV MCH MCHC RDW Plt Count MPV Sodium Potassium Chloride Carbon Dioxide Anion Gap BUN Creatinine Estimated GFR Glucose POC Glucometer 224 H Hemoglobin A1c 6.29 H Calcium Total Bilirubin AST ALT Alkaline Phosphatase Troponin I < 0.012 Serum Total Protein Albumin 03/24/21 03/24/21 15:02 12:10 WBC RBC Hgb Hct MCV MCH MCHC RDW Plt Count MPV Sodium Potassium Chloride Carbon Dioxide Anion Gap BUN Creatinine Estimated GFR Glucose POC Glucometer Hemoglobin A1c Calcium Total Bilirubin AST ALT Alkaline Phosphatase Troponin I < 0.012 < 0.012 Serum Total Protein Albumin Orders (Last 24 hours) Category Date Time Status Bedrest ROUTINE Activity 03/24/21 11:53 Active Code Status Order ROUTINE Care 03/24/21 11:53 Active IV Care Q6H Care 03/24/21 11:53 Active Oxygen-ED Only Nasal Cannula 4 lpm Care 03/24/21 11:51 Completed POCT Glucose Check ACHS Care 03/24/21 16:[address] in Observation ROUTINE Care 03/24/21 11:53 Active Roderick Arabellaann marieBari ROUTINE Care 03/24/21 11:53 Active Telemetry Q12H Care 03/24/21 11:53 Active Weight,Daily 0600 Care 03/24/21 11:53 Active Consistent Carbohydrate Diet 2000 Calorie Diet 03/24/21 Dinner Active CBC AM.LAB Lab 03/25/21 05:00 Completed CMP AM.LAB Lab 03/25/21 04:29 Completed HEMOGLOBIN A1C Urgent Lab 03/24/21 17:00 Completed POCT GLUCOSE Stat Lab 03/24/21 16:08 Completed POCT GLUCOSE Stat Lab 03/24/21 20:34 Completed POCT GLUCOSE Stat Lab 03/25/21 07:35 Completed POCT GLUCOSE Stat Lab 03/25/21 11:28 Completed TROPONIN Q3H Lab 03/24/21 12:10 Completed TROPONIN Q3H Lab 03/24/21 15:02 Completed TROPONIN Q3H Lab 03/24/21 18:40 Completed TROPONIN Q3H Lab 03/24/21 21:17 Completed ALPRAZolam 1 MG [Xanax 1 mg] Med 03/24/21 13:00 Active 1 mg PO BID Albuterol 2.5 mg/3 ml Neb [Proventil 2.5 mg/3 ml Neb Med 03/24/21 12:30 Discontinued ] 2.5 mg IH Q4HRT Albuterol 2.5 mg/3 ml Neb [Proventil 2.5 mg/3 ml Neb Med 03/24/21 15:00 Discontinued ] 2.5 mg IH Q4HRT Albuterol/Ipratropium 3ml Neb* [DUONEB 0.5-3 MG/3 ml Med 03/24/21 15:00 Active Neb] 3 ml IH Q4HRT Aspirin EC 81 mg [Ecotrin 81 mg] Med 03/24/21 13:00 Active 81 mg PO DAILY Azithromycin 500 mg/250 ml [Zithromax 500 MG/ 250 ML Med 03/25/21 10:00 Active NaCl Premix] 500 mg in 250 ml IV Q24H10 Ceftriaxone 1 GM/50 ML PREMIX* [ROCEPHIN 1 Gm-D5w 50 ml Med 03/25/21 10:00 Active Bag] 1 g in 50 ml IV Q24H10 Isosorbide Mononitrate 60 mg [Imdur 60MG] Med 03/24/21 13:00 Active 60 mg PO DAILY Medication Intervention Med 03/24/21 14:15 Active 0 each MC .RN TO CHECK WITH PT Metformin HCl 500 mg [Glucophage 500 MG] Med 03/24/21 17:00 Active 500 mg PO BIDWM Methylprednis Sod Succ 125 mg* [solu-MEDROL] 60 mg Med 03/24/21 12:30 Active Water For Injection,Sterile [Sterile H2O 10 ml] 2 ml IV Q6HT Metoprolol Tartrate 25 mg [Lopressor 25MG Tab] Med 03/24/21 13:00 Active 25 mg PO BID Nitroglycerin 0.4 mg Tablet [Nitrostat 0.4 MG Tablet Med 03/24/21 12:37 Active ] 0.4 mg SL Q5MIN PRN MR X 3 PRN PANTOPRAZOLE 40 mg Tablet [Protonix 40MG Tablet] Med 03/24/21 16:30 Active 40 mg PO BIDAC Polyvinyl Alcohol Tears [Artificial Tears 15 ML] Med 03/24/21 12:37 Active 0 ml OP Q4H PRN PRN Pramipexole Di-HCl 0.5 mg [Mirapex 0.5 MG Tablet] Med 03/24/21 22:00 Active 1.125 mg PO BID Prednisone 5 mg [Deltasone 5 mg] Med 03/25/21 10:00 Active 5 mg PO DAILY Sacubitril/Valsartan [Entresto 49 mg-51 mg Tablet] Med 03/24/21 13:00 Active 0.5 tablet PO BID Simvastatin 20Mg [Zocor 20Mg] Med 03/24/21 22:00 Active 40 mg PO HS Spironolactone 25 mg [Aldactone 25 MG] Med 03/24/21 12:45 Active 12.5 mg PO DAILY Theophylline Anhydrous [Theophylline ER 24Hr] Med 03/24/21 13:00 Active 300 mg PO BID Oxygen NASAL CANNULA 4 lpm RT 03/24/21 13:44 Active Pulse Oximetry Q4H RT 03/24/21 11:53 Active Respiratory Therapy Assessment DAILY RT 03/24/21 13:45 Active Patient Care Notes (Last 24 hours) 03/25/21 10:37 Respiratory Note by Yoanna Rodríguez O2 DECREASED TO 4LPM NC Initialized on 03/25/21 10:37 - END OF NOTE 03/25/21 09:51 Case Management Note by Gloria Friend [facility] WERE NOTIFIED PATIENT IS HERE OBS. THEY WILL NEED NOTIFIED AT TIME OF DC AT [phone]. THEY WILL NEED FAXED THE DC INSTRUCTIONS, DC MED LIST AND DC SUMMARY (IF AVAILABLE) TO [phone] Initialized on 03/25/21 09:51 - END OF NOTE Code(s): J44.1 - CHRONIC OBSTRUCTIVE PULMONARY DISEASE W (ACUTE) EXACERBATION (2) Acute on chronic respiratory failure with hypoxia Current Visit: No Status: Acute Code(s): J96.21 - ACUTE AND CHRONIC RESPIRATORY FAILURE WITH HYPOXIA (3) Failure of outpatient treatment Current Visit: No Status: Acute Onset Date: ~07/29/18 Code(s): Z78.9 - OTHER SPECIFIED HEALTH STATUS
[2021-03-25] MEDS: ZOCOR 20MG PO SCH (22:45)
[2021-03-26] MEDS: solu-MEDROL 60 MG, Sterile H2O 10 ml 2 ML IV SCH ×8 (02:07→17:12)
[2021-03-26] MEDS: DUONEB 0.5-3 MG/3 ml Neb IH SCH ×6 (02:33→22:29)
[2021-03-26] MEDS: Protonix 40MG Tablet PO SCH ×2 (08:29→16:58)
[2021-03-26] MEDS: Glucophage 500 MG PO SCH ×2 (08:29→16:58)
[2021-03-26] MEDS: DELTASONE 5 MG PO SCH (08:32)
[2021-03-26] MEDS: ECOTRIN 81 MG PO SCH (08:32)
[2021-03-26] MEDS: Lopressor 25MG Tab PO SCH ×2 (08:32→22:03)
[2021-03-26] MEDS: Mirapex 0.5 MG Tablet PO SCH ×2 (08:33→22:05)
[2021-03-26] MEDS: Aldactone 25 MG PO SCH (08:35)
[2021-03-26] MEDS: Imdur 60MG PO SCH (08:35)
[2021-03-26] MEDS: XANAX 1 MG PO SCH ×2 (08:36→22:08)
[2021-03-26] MEDS: ENTRESTO 49 MG-51 MG TABLET PO SCH ×2 (08:36→22:04)
[2021-03-26] MEDS: THEOPHYLLINE ER 24HR PO SCH ×2 (08:37→22:07)
[2021-03-26] MEDS: Zithromax 500 MG/ 250 ML NaCl Premix 500 MG/250 ML IVPB IV SCH (08:39)
[2021-03-26] MEDS ORDERED: Lasix 20 MG/2 ML IV SCH (10:00)
[2021-03-26 10:03] LABS: BASOPHIL % 0.1 % (0.0-0.4); Basophil (Absolute #) 0.02 (0-0.4); Eosinophil (Absolute #) 0 (0-0.5); Hematocrit 37.1 % (42-50); Hemoglobin 11.4 gm/dl (12.5-18.0); Lymphocyte (Absolute #) 0.33 (1.0-4.6); Lymphocytes % 2.2 % (24.0-44.0); Mean Cell Volume 82.6 fl (78-100); Mean Corpuscular Hemoglobin 25.4 pg (26-32); Mean Corpuscular Hgb Concent. 30.7 g/dl (32-36); Mean Platelet Volume 9.2 fl (7.5-11.0); Monocyte (Absolute #) 0.34 (0.0-1.3); Monocytes % 2.2 % (0.0-12.0); Neutrophil % 95.5 % (36.0-66.0); Platelet Count 313 K/mm3 (150-450); Red Blood Count 4.49 M/mm3 (4.1-5.6); Red Cell Distribution Width 16.8 % (11.5-14.0); White Blood Count 15.2 K/mm3 (4.0-10.5)
[2021-03-26] MEDS: ROCEPHIN 1 Gm-D5w 50 ml Bag** 1 G/50 ML IVPB IV SCH (10:09)
[2021-03-26 10:41] LABS: ALBUMIN 3.4 g/dL (3.5-5.0); ALKALINE PHOSPHATASE 39 U/L (38-126); ANION GAP 11.1 MEQ/L (5-15); BLOOD UREA NITROGEN 13 mg/dL (9-20); CHLORIDE 96 mmol/L (98-107); Calcium 9.2 mg/dL (8.4-10.2); Carbon Dioxide 30 mmol/L (22-30); Creatinine 1 0.64 mg/dL (0.66-1.25); EST GLOMERULAR FILTRATION RATE > 60.0 ML/MIN; Glucose 173 mg/dL (74-106); NT PRO BNP 523 pg/mL (0-900); Potassium 4.5 mmol/L (3.5-5.1); SGOT/AST 19 U/L (17-59); SGPT/ALT 14 U/L (0-50); SODIUM 133 mmol/L (137-145); TSH, 3RD Generation 0.315 mIU/L (0.47-4.68); Total Protein 6.1 g/dL (6.3-8.2)
[2021-03-26 14:02] LABS: Slide Review 1 YES
--- NOTE | 2021-03-26 16:20 | PCM.NOTE ---
Date and Time: 03/26/21 1610 Subjective Assessment: Patient states he is feeling weak,coughing spells not productive. States he dis not sleep well last night. Has had some diarrhea before admission and again today. WBC has not improved on Zithromax and Rocephin,d/c and start Levaquin . Test Cdif. Objective Exam General Appearance: no apparent distress Neurologic Exam: alert, oriented x 3, cooperative, normal mood/affect (pleasant) Skin Exam: normal color, warm, dry Ears, Nose, Throat Exam: normal ENT inspection Neck Exam: normal inspection Respiratory Exam: diminished breath sounds (no eew or ronchi) Cardiovascular Exam: regular rate/rhythm (distant) Gastrointestinal/Abdomen Exam: soft, distention (nontender) Extremity Exam: other (no edema) OBJECTIVE DATA Vital Signs: Vital Signs - 24 hr Temp Pulse Resp BP Pulse Ox 03/26/21 15:05 75 22 90 L 03/26/21 12:16 92 L 03/26/21 11:20 90 L 03/26/21 11:00 97.3 F 85 23 109/59 91 L 03/26/21 10:00 92 L 03/26/21 07:00 97.5 F 84 30 H 116/63 93 L 03/26/21 06:50 76 20 92 L 03/26/21 02:52 98.4 F 101 H 22 113/66 96 03/26/21 02:33 87 20 92 L 03/26/21 02:21 94 L 03/25/21 23:36 98.2 F 104 H 26 H 121/62 94 L 03/25/21 22:29 98 H 18 96 03/25/21 22:05 96 03/25/21 19:05 98.2 F 102 H 19 108/62 97 03/25/21 18:30 85 18 95 Oxygen-Last 24 hours Oxygen Flowrate (L/min)-RT 4 Oxygen Flowrate (L/min)-RT 4 Oxygen Flowrate (L/min)-RT 4 Pain Assessment - Last Documented Pain Intensity 0 Intake and Output: Intake & Output 03/24/21 03/25/21 03/26/21 03/27/21 11:59 11:59 11:59 11:59 Intake Total 1660 1520 480 Output Total 1850 950 250 Balance -190 570 230 Weight 77.564 kg 79.4 kg 80.1 kg Lab Results: Lab Results-Last 24 Hours 03/25/21 03/26/21 03/26/21 Range/Units 20:40 07:54 09:55 WBC 15.2 H (4.0-10.5) K/mm3 RBC 4.49 (4.1-5.6) M/mm3 Hgb 11.4 L (12.5-18.0) gm/dl Hct 37.1 L (42-50) % MCV 82.6 (78-100) fl MCH 25.4 L (26-32) pg MCHC 30.7 L (32-36) g/dl RDW 16.8 H (11.5-14.0) % Plt Count 313 (150-450) K/mm3 MPV 9.2 (7.5-11.0) fl Gran % 95.5 H (36.0-66.0) % Eos # (Auto) 0 (0-0.5) Absolute Lymphs (auto) 0.33 L (1.0-4.6) Absolute Monos (auto) 0.34 (0.0-1.3) Lymphocytes % 2.2 L (24.0-44.0) % Monocytes % 2.2 (0.0-12.0) % Eosinophils % 0.0 (0.00-5.0) % Basophils % 0.1 (0.0-0.4) % Absolute Granulocytes 14.50 H (1.4-6.9) Basophils # 0.02 (0-0.4) Sodium (137-145) mmol/L Potassium (3.5-5.1) mmol/L Chloride (98-107) mmol/L Carbon Dioxide (22-30) mmol/L Anion Gap (5-15) MEQ/L BUN (9-20) mg/dL Creatinine (0.66-1.25) mg/dL Estimated GFR ML/MIN Glucose (74-106) mg/dL POC Glucometer 171 H 133 H (74 to 106) mg/dL Calcium (8.4-10.2) mg/dL Total Bilirubin (0.2-1.3) mg/dL AST (17-59) U/L ALT (0-50) U/L Alkaline Phosphatase (38-126) U/L NT-Pro-B Natriuret Pep (0-900) pg/mL Serum Total Protein (6.3-8.2) g/dL Albumin (3.5-5.0) g/dL TSH 3rd Generation (0.47-4.68) mIU/L Slides for Path Review YES 03/26/21 03/26/21 03/26/21 Range/Units 09:55 11:22 16:08 WBC (4.0-10.5) K/mm3 RBC (4.1-5.6) M/mm3 Hgb (12.5-18.0) gm/dl Hct (42-50) % MCV (78-100) fl MCH (26-32) pg MCHC (32-36) g/dl RDW (11.5-14.0) % Plt Count (150-450) K/mm3 MPV (7.5-11.0) fl Gran % (36.0-66.0) % Eos # (Auto) (0-0.5) Absolute Lymphs (auto) (1.0-4.6) Absolute Monos (auto) (0.0-1.3) Lymphocytes % (24.0-44.0) % Monocytes % (0.0-12.0) % Eosinophils % (0.00-5.0) % Basophils % (0.0-0.4) % Absolute Granulocytes (1.4-6.9) Basophils # (0-0.4) Sodium 133 L (137-145) mmol/L Potassium 4.5 (3.5-5.1) mmol/L Chloride 96 L (98-107) mmol/L Carbon Dioxide 30 (22-30) mmol/L Anion Gap 11.1 (5-15) MEQ/L BUN 13 (9-20) mg/dL Creatinine 0.64 L (0.66-1.25) mg/dL Estimated GFR > 60.0 ML/MIN Glucose 173 H (74-106) mg/dL POC Glucometer 177 H 147 H (74 to 106) mg/dL Calcium 9.2 (8.4-10.2) mg/dL Total Bilirubin 0.40 (0.2-1.3) mg/dL AST 19 (17-59) U/L ALT 14 (0-50) U/L Alkaline Phosphatase 39 (38-126) U/L NT-Pro-B Natriuret Pep 523 (0-900) pg/mL Serum Total Protein 6.1 L (6.3-8.2) g/dL Albumin 3.4 L (3.5-5.0) g/dL TSH 3rd Generation 0.315 L (0.47-4.68) mIU/L Slides for Path Review Assessment/Plan (1) COPD exacerbation Current Visit: Yes Status: Acute Assessment & Plan: stable but not improved,continue IV solumedrol and change antibiotic to Levaquin Code(s): J44.1 - CHRONIC OBSTRUCTIVE PULMONARY DISEASE W (ACUTE) EXACERBATION (2) Diarrhea Current Visit: Yes Status: Acute Qualifiers: Diarrhea type: unspecified type Qualified Code(s): R19.7 - Diarrhea, unspecified Assessment & Plan: episodic started before admission Code(s): R19.7 - DIARRHEA, UNSPECIFIED (3) CHF (congestive heart failure) Current Visit: Yes Status: Chronic Assessment & Plan: BNP improve -wnl today Code(s): I50.9 - HEART FAILURE, UNSPECIFIED
[2021-03-26] MEDS: ZOCOR 20MG PO SCH (22:02)
[2021-03-26] MEDS: MUCINEX DM 600/30MG PO SCH (22:03)
[2021-03-27] MEDS: solu-MEDROL 60 MG, Sterile H2O 10 ml 2 ML IV SCH ×8 (00:11→17:34)
[2021-03-27] MEDS: DUONEB 0.5-3 MG/3 ml Neb IH SCH ×6 (02:52→22:45)
[2021-03-27] MEDS: Protonix 40MG Tablet PO SCH ×2 (07:35→17:33)
[2021-03-27] MEDS: Glucophage 500 MG PO SCH ×2 (07:35→17:33)
[2021-03-27] MEDS: Levofloxacin 500MG/100ML D5W 500 MG/100 ML BAG IV SCH (09:18)
[2021-03-27] MEDS: ECOTRIN 81 MG PO SCH (09:18)
[2021-03-27] MEDS: XANAX 1 MG PO SCH ×2 (09:18→21:55)
[2021-03-27] MEDS: Imdur 60MG PO SCH (09:18)
[2021-03-27] MEDS: Lopressor 25MG Tab PO SCH ×2 (09:19→21:54)
[2021-03-27] MEDS: ENTRESTO 49 MG-51 MG TABLET PO SCH ×2 (09:19→21:57)
[2021-03-27] MEDS: Mirapex 0.5 MG Tablet PO SCH ×2 (09:19→21:55)
[2021-03-27] MEDS: MUCINEX DM 600/30MG PO SCH ×2 (09:19→21:54)
[2021-03-27] MEDS: THEOPHYLLINE ER 24HR PO SCH ×2 (09:20→21:56)
[2021-03-27] MEDS: Aldactone 25 MG PO SCH (09:20)
--- NOTE | 2021-03-27 14:31 | PCM.NOTE ---
Date and Time: 03/27/21 1417 Subjective Assessment: Patient has improved clinically ,states breathing easier and has more energy. Has not eaten much states he eats a regular diet at home. A1C = 6.29%. No BM ,no further diarrhea. Objective Exam General Appearance: no apparent distress Neurologic Exam: alert, oriented x 3, cooperative, normal mood/affect Skin Exam: normal color, warm, dry Eye Exam: eyes nml inspection Ears, Nose, Throat Exam: normal ENT inspection Neck Exam: normal inspection Respiratory Exam: diminished breath sounds (but improved aeration mid lung vergara,no wheeze or rales or ronchi.) Cardiovascular Exam: regular rate/rhythm Gastrointestinal/Abdomen Exam: soft, normal bowel sounds, distention (nontender) OBJECTIVE DATA Vital Signs: Vital Signs - 24 hr Temp Pulse Resp BP Pulse Ox 03/27/21 12:00 97.7 F 97 H 27 H 103/59 92 L 03/27/21 11:00 96 H 28 H 92 L 03/27/21 08:00 97.4 F 83 30 H 108/65 91 L 03/27/21 07:00 83 30 H 91 L 03/27/21 03:59 98.3 F 89 18 132/63 93 L 03/27/21 03:00 93 L 03/27/21 02:52 89 18 93 L 03/26/21 23:26 97.9 F 83 22 107/68 95 03/26/21 23:00 95 03/26/21 22:31 90 18 92 L 03/26/21 20:15 97.6 F 91 H 20 119/61 94 L 03/26/21 19:00 91 H 20 94 L 03/26/21 16:00 91 L 03/26/21 15:05 75 22 90 L 03/26/21 15:00 97.2 F 88 16 104/58 91 L Oxygen-Last 24 hours Oxygen Flowrate (L/min)-RT 5 Oxygen Flowrate (L/min)-RT 5 Oxygen Flowrate (L/min)-RT 5 Oxygen Flowrate (L/min)-RT 5 Pain Assessment - Last Documented Pain Intensity 0 Intake and Output: Intake & Output 03/25/21 03/26/21 03/27/21 03/28/21 11:59 11:59 11:59 11:59 Intake Total 1660 1520 1860 125 Output Total 3764 956 1338 300 Balance -190 570 535 -175 Weight 79.4 kg 80.1 kg 83 kg Lab Results: Lab Results-Last 24 Hours 03/26/21 03/26/21 03/27/21 Range/Units 16:08 21:06 07:18 POC Glucometer 147 H 177 H 161 H (74 to 106) mg/dL 03/27/21 Range/Units 11:15 POC Glucometer 185 H (74 to 106) mg/dL Assessment/Plan (1) COPD exacerbation Current Visit: Yes Status: Acute Assessment & Plan: clinically improving,todays labs are pending. Antibiotic changed to Levaquin yesterday. Blood cultures no growth. Code(s): J44.1 - CHRONIC OBSTRUCTIVE PULMONARY DISEASE W (ACUTE) EXACERBATION (2) Diarrhea Current Visit: Yes Status: Resolved Qualifiers: Diarrhea type: unspecified type Qualified Code(s): R19.7 - Diarrhea, unspecified Code(s): R19.7 - DIARRHEA, UNSPECIFIED (3) CHF (congestive heart failure) Current Visit: Yes Status: Chronic Assessment & Plan: stable. BNP -wnl yesterday. Code(s): I50.9 - HEART FAILURE, UNSPECIFIED
[2021-03-27 15:12] LABS: Absolute Neutrophil Ct (ANC) 11.04 (1.4-6.9); BASOPHIL % 0.1 % (0.0-0.4); Basophil (Absolute #) 0.01 (0-0.4); Eosinophil % 0.1 % (0.00-5.0); Eosinophil (Absolute #) 0.01 (0-0.5); Hematocrit 38.1 % (42-50); Hemoglobin 11.9 gm/dl (12.5-18.0); Lymphocyte (Absolute #) 0.36 (1.0-4.6); Mean Cell Volume 82.8 fl (78-100); Mean Corpuscular Hemoglobin 25.9 pg (26-32); Mean Corpuscular Hgb Concent. 31.2 g/dl (32-36); Mean Platelet Volume 9.3 fl (7.5-11.0); Monocyte (Absolute #) 0.55 (0.0-1.3); Monocytes % 4.6 % (0.0-12.0); Neutrophil % 92.2 % (36.0-66.0); Platelet Count 341 K/mm3 (150-450); Red Cell Distribution Width 16.8 % (11.5-14.0)
[2021-03-27 15:31] LABS: ANION GAP 9.9 MEQ/L (5-15); BLOOD UREA NITROGEN 14 mg/dL (9-20); CHLORIDE 93 mmol/L (98-107); Carbon Dioxide 33 mmol/L (22-30); Creatinine 1 0.55 mg/dL (0.66-1.25); EST GLOMERULAR FILTRATION RATE > 60.0 ML/MIN; Glucose 115 mg/dL (74-106); Potassium 4.7 mmol/L (3.5-5.1); SODIUM 131 mmol/L (137-145)
[2021-03-27] MEDS: ZOCOR 20MG PO SCH (21:55)
[2021-03-27] MEDS ORDERED: Sterile H2O 10 ml IJ ONE (23:21)
[2021-03-27] MEDS ORDERED: solu-MEDROL ONE (23:21)
[2021-03-28 00:01] LABS: Slide Review 1 YES
[2021-03-28] MEDS: solu-MEDROL 60 MG, Sterile H2O 10 ml 2 ML IV SCH ×4 (00:13→06:45)
[2021-03-28] MEDS: DUONEB 0.5-3 MG/3 ml Neb IH SCH ×3 (03:45→11:14)
[2021-03-28 05:16] LABS: Absolute Neutrophil Ct (ANC) 10.42 (1.4-6.9); BASOPHIL % 0.1 % (0.0-0.4); Basophil (Absolute #) 0.01 (0-0.4); Eosinophil (Absolute #) 0 (0-0.5); Hematocrit 39.6 % (42-50); Hemoglobin 12.4 gm/dl (12.5-18.0); Lymphocyte (Absolute #) 0.35 (1.0-4.6); Lymphocytes % 3.2 % (24.0-44.0); Mean Cell Volume 82.2 fl (78-100); Mean Corpuscular Hemoglobin 25.7 pg (26-32); Mean Corpuscular Hgb Concent. 31.3 g/dl (32-36); Mean Platelet Volume 9.3 fl (7.5-11.0); Monocyte (Absolute #) 0.32 (0.0-1.3); Monocytes % 2.9 % (0.0-12.0); Neutrophil % 93.8 % (36.0-66.0); Platelet Count 344 K/mm3 (150-450); Red Blood Count 4.82 M/mm3 (4.1-5.6); Red Cell Distribution Width 16.6 % (11.5-14.0); White Blood Count 11.1 K/mm3 (4.0-10.5)
[2021-03-28] MEDS ORDERED: solu-MEDROL ONE (05:43)
[2021-03-28] MEDS ORDERED: Sterile H2O 10 ml IJ ONE (05:43)
[2021-03-28] MEDS: Protonix 40MG Tablet PO SCH (08:14)
[2021-03-28] MEDS: Glucophage 500 MG PO SCH (08:14)
[2021-03-28 08:39] LABS: Slide Review 1 YES
[2021-03-28] MEDS: Mirapex 0.5 MG Tablet PO SCH (10:20)
[2021-03-28] MEDS: Aldactone 25 MG PO SCH (10:21)
[2021-03-28] MEDS: Lopressor 25MG Tab PO SCH (10:21)
[2021-03-28] MEDS: Imdur 60MG PO SCH (10:21)
[2021-03-28] MEDS: XANAX 1 MG PO SCH (10:21)
[2021-03-28] MEDS: MUCINEX DM 600/30MG PO SCH (10:21)
[2021-03-28] MEDS: THEOPHYLLINE ER 24HR PO SCH (10:22)
[2021-03-28] MEDS: ECOTRIN 81 MG PO SCH (10:22)
[2021-03-28] MEDS: ENTRESTO 49 MG-51 MG TABLET PO SCH (10:22)
[2021-03-28] MEDS: Levofloxacin 500MG/100ML D5W 500 MG/100 ML BAG IV SCH (10:25)
[2021-03-28 11:54] VITALS: BP 127/85; PULSE 88; O2SAT 93
[2021-03-28] MEDS ORDERED: Lasix 40 MG/4 ML IV ONE (13:04)
[2021-03-28] MEDS ORDERED: solu-MEDROL 60 MG, Sterile H2O 10 ml 2 ML IV SCH ×2 (14:00)
--- NOTE | 2021-03-28 18:05 | PCM.DS ---
Discharge Summary Date of Admission: 03/25/21 12:48 Admitting Physician: KRUPA MAZA Primary Care Provider: KRUPA MAZA Allergies [facility]ies [facility] Allergy (Severe, Verified 01/25/21 12:33) Rash Hospital Summary - Hospital Course Hospital Course: Chief Complaint Diagnosis COPD EXAC, ACUTE OF CHRONIC RESP FAILURE WITH HYPOXIA, Allergies Allergy/AdvReac Type Severity Reaction Status Date / Time [facility] Allergy Severe Rash Verified 01/25/21 12:33 Vital Signs (Last 24 hours) Temp Pulse Resp BP Pulse Ox 03/28/21 11:53 98.1 F 88 18 127/85 93 L 03/28/21 11:14 87 16 99 03/28/21 10:00 93 L 03/28/21 07:50 98.0 F 74 18 135/74 94 L 03/28/21 06:47 74 18 94 L 03/28/21 04:00 97.8 F 75 20 127/83 91 L 03/28/21 03:15 61 20 92 L 03/28/21 03:00 91 L 03/28/21 00:00 97.8 F 89 24 116/61 93 L 03/27/21 22:45 95 H 20 87 L 03/27/21 19:56 97.8 F 91 H 22 117/65 97 03/27/21 19:32 90 18 98 Home Medications Medication Instructions Recorded Confirmed Last Taken Type Albuterol Sulfate [Proair 2 puffs IH Q6H PRN 03/24/21 03/24/21 03/23/21 History Digihaler] Budesonide/Glycopyr/Formoterol 2 puffs IH BID 03/24/21 03/24/21 03/23/21 History [Breztri Aerosphere Inhaler] Furosemide 40 mg [Lasix 40 40 mg PO DAILY #14 tablet 03/28/21 Unknown Rx MG] Levofloxacin [Levaquin] 500 mg PO DAILY 5 Days #5 tablet 03/28/21 Unknown Rx Current Medications Discontinued Medications Generic Name Dose Route Start Last Admin Trade Name Freq PRN Reason Stop Dose Admin Albuterol Sulfate Confirm 03/24/21 11:23 Proventil 2.5 Mg/3 Ml Neb Administered 03/24/21 11:24 Dose 2.5 mg IH .STK-MED ONE Albuterol Sulfate 2.5 mg 03/24/21 15:00 03/24/21 11:27 Proventil 2.5 Mg/3 Ml Neb IH 04/23/21 14:59 2.5 mg Q4HRT FAHEEM Administration Albuterol Sulfate 2.5 mg 03/24/21 12:30 Proventil 2.5 Mg/3 Ml Neb IH 04/23/21 12:29 Q4HRT FAHEEM Albuterol/Ipratropium 3 ml 03/24/21 15:00 03/28/21 11:14 Duoneb 0.5-3 Mg/3 Ml Neb IH 04/23/21 14:59 3 ml Q4HRT FAHEEM Administration Alprazolam 1 mg 03/24/21 13:00 03/28/21 10:21 Xanax 1 Mg PO 04/23/21 12:59 1 mg BID FAHEEM Administration Artificial Tears 0 ml 03/24/21 12:37 Artificial Tears 15 Ml OP 04/23/21 12:36 Q4H PRN PRN dry eyes Aspirin 81 mg 03/24/21 13:00 03/28/21 10:22 Ecotrin 81 Mg PO 04/23/21 12:59 81 mg DAILY FAHEEM Administration Methylprednisolone Sodium 0 mg 03/24/21 12:30 03/27/21 17:34 Succinate 60 mg/ Sterile Water IV 04/23/21 12:29 60 mg 2 ml Q6HT FAHEEM Administration Methylprednisolone Sodium 0 mg 03/27/21 23:00 03/28/21 06:45 Succinate 60 mg/ Sterile Water IV 04/26/21 22:59 60 mg 2 ml Q8HRT FAHEEM Administration Methylprednisolone Sodium 0 mg 03/28/21 14:00 Succinate 60 mg/ Sterile Water IV 04/26/21 22:59 2 ml Q8HT FAHEEM Furosemide 20 mg 03/24/21 11:38 03/24/21 11:41 Lasix 20 Mg/2 Ml IV 03/24/21 11:39 20 mg ONCE STA Administration Furosemide Confirm 03/24/21 11:38 Lasix 40 Mg/4 Ml Administered 03/24/21 11:39 Dose 40 mg .ROUTE .STK-MED ONE Furosemide 20 mg 03/26/21 10:00 03/26/21 10:08 Lasix 20 Mg/2 Ml IV 03/29/21 09:59 20 mg DAILY FAHEEM Administration Furosemide 40 mg 03/28/21 13:04 Lasix 40 Mg/4 Ml IV 03/28/21 13:05 STAT ONE Guaifenesin/Dextromethorphan 1 tablet 03/26/21 22:00 03/28/21 10:21 Mucinex Dm 600/30mg PO 04/25/21 21:59 1 tablet BID FAHEEM Administration Ceftriaxone Sodium/Dextrose 2 g in 50 mls @ 100 mls/hr 03/24/21 10:00 03/24/21 10:32 Rocephin 2 Gm-D5w 50ml Bag IV 03/27/21 09:59 Infused Q24H10 FAHEEM Infusion Azithromycin 500 mg in 250 mls @ 250 mls/hr 03/24/21 09:05 03/24/21 10:40 Zithromax 500 Mg/ 250 Ml Nacl Premix IV 03/24/21 10:04 250 mls/hr STAT ONE Administration Azithromycin Confirm 03/24/21 10:37 Zithromax 500 Mg/ 250 Ml Nacl Premix Administered 03/24/21 10:38 Dose 500 mg in 250 mls @ ud IV .STK-MED ONE Ceftriaxone Sodium/Dextrose 1 g in 50 mls @ 100 mls/hr 03/25/21 10:00 1 10:09 Rocephin 1 Gm-D5w 50 Ml Bag IV 03/28/21 09:59 100 mls/hr Q24H10 FAHEEM Administration Azithromycin 500 mg in 250 mls @ 250 mls/hr 03/25/21 10:00 03/26/21 08:39 Zithromax 500 Mg/ 250 Ml Nacl Premix IV 04/24/21 09:59 250 mls/hr Q24H10 FAHEEM Administration Levofloxacin/Dextrose 500 mg in 100 mls @ 100 mls/hr 03/27/21 10:00 03/28/21 10:25 Levofloxacin 500mg/100ml D5w IV 04/26/21 09:59 100 mls/hr Q24H10 FAHEEM Administration Isosorbide Mononitrate 60 mg 03/24/21 13:00 03/28/21 10:21 Imdur 60mg PO 04/23/21 12:59 60 mg DAILY FAHEEM Administration Metformin HCl 500 mg 03/24/21 17:00 03/28/21 08:14 Glucophage 500 Mg PO 04/23/21 16:59 500 mg BIDWM FAHEEM Administration Methylprednisolone Sodium Succinate Confirm 03/27/21 23:21 Solu-Medrol Administered 03/27/21 23:22 Dose 125 mg .ROUTE .STK-MED ONE Methylprednisolone Sodium Succinate Confirm 03/28/21 05:43 Solu-Medrol Administered 03/28/21 05:44 Dose 125 mg .ROUTE .STK-MED ONE Metoprolol Tartrate 25 mg 03/24/21 13:00 03/28/21 10:21 Lopressor 25mg Tab PO 04/23/21 12:59 25 mg BID FAHEEM Administration Miscellaneous Information 0 each 03/24/21 14:15 Medication Intervention 04/23/21 14:14 .RN TO CHECK WITH PT FAHEEM Nitroglycerin 0.4 mg 03/24/21 12:37 Nitrostat 0.4 Mg Tablet SL 04/23/21 12:36 Q5MIN PRN MR X 3 PRN CHEST PAIN Pantoprazole Sodium 40 mg 03/24/21 16:30 03/28/21 08:14 Protonix 40mg Tablet PO 04/23/21 16:29 40 mg BIDAC FAHEEM Administration Breztri Inhaler 0 each 03/28/21 19:00 IH 04/27/21 18:59 BIDRT FAHEEM Pramipexole Dihydrochloride 1.125 mg 03/24/21 22:00 03/28/21 10:20 Mirapex 0.5 Mg Tablet PO 04/23/21 21:59 1.125 mg BID FAHEEM Administration Prednisone 5 mg 03/25/21 10:00 03/26/21 08:32 Deltasone 5 Mg PO 04/24/21 09:59 5 mg DAILY FAHEEM Administration Sacubitril/Valsartan 0.5 tablet 03/24/21 13:00 03/28/21 10:22 Entresto 49 Mg-51 Mg Tablet PO 04/23/21 12:59 0.5 tablet BID FAHEEM Administration Simvastatin 40 mg 03/24/21 22:00 03/27/21 21:55 Zocor 20mg PO 04/23/21 21:59 40 mg HS FAHEEM Administration Spironolactone 12.5 mg 03/24/21 12:45 03/28/21 10:21 Aldactone 25 Mg PO 04/23/21 12:44 12.5 mg DAILY FAHEEM Administration Sterile Water Confirm 03/27/21 23:21 Sterile H2o 10 Ml Administered 03/27/21 23:22 Dose 10 ml IJ .STK-MED ONE Sterile Water Confirm 03/28/21 05:43 Sterile H2o 10 Ml Administered 03/28/21 05:44 Dose 10 ml IJ .STK-MED ONE Theophylline 300 mg 03/24/21 13:00 03/28/21 10:22 Theophylline Er 24hr PO 04/23/21 12:59 300 mg BID FAHEEM Administration Intake & Output (Last 24 hours) 03/26/21 03/27/21 03/28/21 03/29/21 11:59 11:59 11:59 11:59 Intake Total 1520 1860 1365 580 Output Total 950 1325 1750 600 Balance 570 535 -385 -20 Weight 80.1 kg 83 kg 84 kg Laboratory Results (Last 24 hours) 03/28/21 03/28/21 03/28/21 11:25 07:29 04:40 WBC 11.1 H RBC 4.82 Hgb 12.4 L Hct 39.6 L MCV 82.2 MCH 25.7 L MCHC 31.3 L RDW 16.6 H Plt Count 344 MPV 9.3 Gran % 93.8 H Eos # (Auto) 0 Absolute Lymphs (auto) 0.35 L Absolute Monos (auto) 0.32 Lymphocytes % 3.2 L Monocytes % 2.9 Eosinophils % 0.0 Basophils % 0.1 Absolute Granulocytes 10.42 H Basophils # 0.01 POC Glucometer 132 H 115 H Slides for Path Review YES 03/27/21 03/27/21 03/27/21 22:45 20:45 14:40 WBC RBC Hgb Hct MCV MCH MCHC RDW Plt Count MPV Gran % Eos # (Auto) Absolute Lymphs (auto) Absolute Monos (auto) Lymphocytes % Monocytes % Eosinophils % Basophils % Absolute Granulocytes Basophils # POC Glucometer 170 H 180 H Slides for Path Review YES Orders (Last 24 hours) Category Date Time Status Discharge Routine Discharge 03/28/21 Ordered Discharge/Telephone Order Routine Discharge 03/28/21 Active CBC W DIFF AM.LAB Lab 03/28/21 04:40 Completed POCT GLUCOSE Stat Lab 03/27/21 20:45 Completed POCT GLUCOSE Stat Lab 03/27/21 22:45 Completed POCT GLUCOSE Stat Lab 03/28/21 07:29 Completed POCT GLUCOSE Stat Lab 03/28/21 11:25 Completed Furosemide 40 mg/4 ml [Lasix 40 MG/4 ML] Med 03/28/21 13:04 Discontinued 40 mg IV STAT ONE Methylprednis Sod Succ 125 mg* [solu-MEDROL] Med 03/27/21 23:21 Discontinued 125 mg .ROUTE .STK-MED ONE Methylprednis Sod Succ 125 mg* [solu-MEDROL] Med 03/28/21 05:43 Discontinued 125 mg .ROUTE .STK-MED ONE Methylprednis Sod Succ 125 mg* [solu-MEDROL] 60 mg Med 03/27/21 23:00 Discontinued Water For Injection,Sterile [Sterile H2O 10 ml] 2 ml IV Q8HRT Methylprednis Sod Succ 125 mg* [solu-MEDROL] 60 mg Med 03/28/21 14:00 Discont inued Water For Injection,Sterile [Sterile H2O 10 ml] 2 ml IV Q8HT Patient Own Med [Patient Own Medication] Med 03/28/21 19:00 Discontinued 0 each IH BIDRT Water For Injection,Sterile [Sterile H2O 10 ml] Med 03/27/21 23:21 Discontinued 10 ml IJ .STK-MED ONE Water For Injection,Sterile [Sterile H2O 10 ml] Med 03/28/21 05:43 Discontinued 10 ml IJ .STK-MED ONE Patient Care Notes (Last 24 hours) 03/28/21 14:47 Nursing Note by Juliana Gallardo FAXED DISCHARGE RECORDS TO [facility] 03/28/21 @ 9007,TRAM Initialized on 03/28/21 14:47 - END OF NOTE 03/28/21 14:41 Nursing Note by Anabela Zepeda pt has had weight gain of 4.6kg since admission. Dr Maza ordered 1x dose lasix IV, when entering the room to update the patient, he was holding his IV in his hand and said "it was loose and fell out". Lasix rx submitted to [facility] pharmacy in [place]. Patient and significant other both verbalize understanding that patient needs to take first dose of Lasix when it is picked up from the pharmacy today and daily until follow up . Patient and primary caregiver (tika) verbalize understanding of all other discharge teaching before leaving Initialized on 03/28/21 14:41 - END OF NOTE 03/28/21 11:43 Case Management Note by Gloria Friend S/W PATIENT AT THIS TIME- HE CONTINUES TO DENY ANY NEW NEEDS AT TIME OF DC. 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 HE ALREADY HAS HHC AND HOME OXYGEN IN PLACE AT HOME Initialized on 03/28/21 11:43 - END OF NOTE 03/27/21 23:17 Respiratory Note by Yumiko Cano PT C/O SOB AND "STUFFY NOSE". SPO2 87% ON 5L NC. SWITCHED PATIENT TO AN OXYMASK DUE TO MOUTH BREATHING. SPO2 INCREASED TO 93% ON 5L OXYMASK. Initialized on 03/27/21 23:17 - END OF NOTE - Vitals & Intake/Output Vital Signs: Vital Signs Temperature 98.1 F 03/28/21 11:53 Pulse Rate 88 03/28/21 11:53 Respiratory Rate 18 03/28/21 11:53 Blood Pressure 127/85 03/28/21 11:53 O2 Sat by Pulse Oximetry 93 L 03/28/21 11:53 Intake & Output: Intake & Output 03/26/21 03/27/21 03/28/21 03/29/21 11:59 11:59 11:59 11:59 Intake Total 1520 1860 1365 580 Output Total 950 1325 1750 600 Balance 570 535 -385 -20 Weight 80.1 kg 83 kg 84 kg - Lab Result Diagrams: 03/28/21 04:40 03/27/21 14:40 Lab Results-Last 24 Hrs: Lab Results-Last 24 Hours 03/27/21 03/27/21 03/27/21 Range/Units 14:40 20:45 22:45 WBC (4.0-10.5) K/mm3 RBC (4.1-5.6) M/mm3 Hgb (12.5-18.0) gm/dl Hct (42-50) % MCV (78-100) fl MCH (26-32) pg MCHC (32-36) g/dl RDW (11.5-14.0) % Plt Count (150-450) K/mm3 MPV (7.5-11.0) fl Gran % (36.0-66.0) % Eos # (Auto) (0-0.5) Absolute Lymphs (auto) (1.0-4.6) Absolute Monos (auto) (0.0-1.3) Lymphocytes % (24.0-44.0) % Monocytes % (0.0-12.0) % Eosinophils % (0.00-5.0) % Basophils % (0.0-0.4) % Absolute Granulocytes (1.4-6.9) Basophils # (0-0.4) POC Glucometer 180 H 170 H (74 to 106) mg/dL Slides for Path Review YES 03/28/21 03/28/21 03/28/21 Range/Units 04:40 07:29 11:25 WBC 11.1 H (4.0-10.5) K/mm3 RBC 4.82 (4.1-5.6) M/mm3 Hgb 12.4 L (12.5-18.0) gm/dl Hct 39.6 L (42-50) % MCV 82.2 (78-100) fl MCH 25.7 L (26-32) pg MCHC 31.3 L (32-36) g/dl RDW 16.6 H (11.5-14.0) % Plt Count 344 (150-450) K/mm3 MPV 9.3 (7.5-11.0) fl Gran % 93.8 H (36.0-66.0) % Eos # (Auto) 0 (0-0.5) Absolute Lymphs (auto) 0.35 L (1.0-4.6) Absolute Monos (auto) 0.32 (0.0-1.3) Lymphocytes % 3.2 L (24.0-44.0) % Monocytes % 2.9 (0.0-12.0) % Eosinophils % 0.0 (0.00-5.0) % Basophils % 0.1 (0.0-0.4) % Absolute Granulocytes 10.42 H (1.4-6.9) Basophils # 0.01 (0-0.4) POC Glucometer 115 H 132 H (74 to 106) mg/dL Slides for Path Review YES Micro Results-Entire Visit: Microbiology 03/24/21 09:50 Blood Culture - Preliminary Blood NO GROWTH TO DATE 03/24/21 09:45 Blood Culture - Preliminary Blood NO GROWTH TO DATE Accuchecks Date 03/28/21 Date 03/28/21 Time 11:52 Time 07:52 - Procedures and Test Procedures and Tests throughout Hospitalization: Therapy Orders & Screens 03/24/21 13:44 Oxygen NASAL CANNULA 4 lpm Comment: Diagnosis: COPD exacerbation 03/24/21 13:45 Respiratory Therapy Assessment DAILY Comment: Discharge Exam General Appearance: no apparent distress, alert Neurologic Exam: alert, oriented x 3, cooperative, normal mood/affect, nml cerebellar function, sensation nml, No motor deficits Eye Exam: PERRL, EOMI, eyes nml inspection Ears, Nose, Throat Exam: normal ENT inspection, pharynx normal, moist mucous membranes Neck Exam: normal inspection, non-tender, supple, full range of motion Respiratory Exam: diminished breath sounds, prolonged expirations, crackles/rales, rhonchi, wheezing, No respiratory distress Cardiovascular Exam: regular rate/rhythm, normal heart sounds Gastrointestinal/Abdomen Exam: soft, No tenderness, No mass Male Genitalia Exam: deferred Rectal Exam: deferred Back Exam: normal inspection, normal range of motion, No CVA tenderness, No vertebral tenderness Extremity Exam: normal inspection, normal range of motion Skin Exam: normal color, warm, dry Final Diagnosis/Problem List - Final Discharge Diagnosis/Problem (1) COPD exacerbation Status: Chronic Code(s): J44.1 - CHRONIC OBSTRUCTIVE PULMONARY DISEASE W (ACUTE) EXACERBATION (2) Acute on chronic respiratory failure with hypoxia Status: Chronic Code(s): J96.21 - ACUTE AND CHRONIC RESPIRATORY FAILURE WITH HYPOXIA (3) Failure of outpatient treatment Status: Acute Onset Date: ~07/29/18 Code(s): Z78.9 - OTHER SPECIFIED HEALTH STATUS - Discharge Discharge Date: 03/28/21 Disposition: Home, Self-Care Condition: Stable Prescriptions: New Levofloxacin [Levaquin] 500 mg PO DAILY 5 Days #5 tablet Furosemide 40 mg [Lasix 40 MG] 40 mg PO DAILY #14 tablet Continue Omeprazole 20 MG [Prilosec 20 mg] 20 mg PO BIDAC Albuterol 2.5 mg/3 ml Neb [Proventil 2.5 mg/3 ml Neb] 1 neb IH Q6H PRN PRN Reason: sob Aspirin 81 mg PO DAILY Metformin HCl 500 mg [Glucophage 500 MG] 500 mg PO BIDWM Nitroglycerin 0.4 mg Tablet [Nitrostat 0.4 MG Tablet] 0.4 mg SL Q5MIN PRN MR X 3 PRN PRN Reason: Chest Pain ALPRAZolam 1 MG [Xanax 1 mg] 1 mg PO BID Theophylline Anhydrous 300 mg PO BID Albuterol Common Canister [Ventolin Common Canister] 2 puff IH Q6HPRN PRN PRN Reason: Shortness Of Breath/Wheezing Isosorbide Mononitrate 60 mg [Imdur 60MG] 60 mg PO DAILY Metoprolol Tartrate 25 mg [Lopressor 25MG Tab] 25 mg PO BID Polyvinyl Alcohol Tears [Artificial Tears 15 ML] 1 drop OP Q4H PRN PRN PRN Reason: dry eyes Rosuvastatin Calcium 20 mg PO HS Spironolactone 25 mg [Aldactone 25 MG] 12.5 mg PO DAILY Sacubitril/Valsartan [Entresto 24 mg-26 mg Tablet] 24 mg PO BID Prednisone 5 mg [Deltasone 5 mg] 5 mg PO DAILY Pramipexole Di-HCl [Mirapex ER] 2.25 mg PO DAILY Budesonide/Glycopyr/Formoterol [Breztri Aerosphere Inhaler] 2 puffs IH BID Albuterol Sulfate [Proair Digihaler] 2 puffs IH Q6H PRN PRN Reason: sob Instructions: Exacerbation of COPD Additional Instructions: CONTINUE TO USE YOUR OXYGEN, 3-4 LITERS PER NASAL CANNULA 19/02.TAKE FIRST DOSE OF LASIX TODAY, FOLLOW UP WITH FINANCIAL ACCOUNTING MANAGER. WEIGH YOURSELF DAILY AND KEEP LOG Follow up with: KRUPA MAZA MD [Primary Care Provider] - 04/05/21 2:00 pm (at [place] )
[2021-03-28] MEDS ORDERED: PATIENT OWN MEDICATION IH SCH (19:00)
== END 2021-03-28 14:29 | disposition home or self-care (01) | DRG 190 ==
LOC: ED 08:54 → MED SURG 11:44 → OBSVTOIN 03-25 12:48
PROVIDERS: ADMIT General Practice; ATTEND General Practice
DX: J44.1 Chronic obstructive pulmonary disease with (acute) exacerbation (principal); J96.21 Acute and chronic respiratory failure with hypoxia; Z99.81 Dependence on supplemental oxygen; I50.9 Heart failure, unspecified; R07.9 Chest pain, unspecified; Z79.899 Other long term (current) drug therapy; E11.9 Type 2 diabetes mellitus without complications; I10 Essential (primary) hypertension; G47.30 Sleep apnea, unspecified; D72.829 Elevated white blood cell count, unspecified; R19.7 Diarrhea, unspecified; Z20.822 Contact with and (suspected) exposure to COVID-19
CPT/HCPCS: 36000; 36415; 71045; 80048; 80053; 82947; 83036; 83605; 83880; 84443; 84484; 85025; 85027; 87040; 87400; 93005; 93041; 93268; 94640; 94760; 96365; 96374; 99285; G0378; U0003; J0456; J0696; J1940; J1956; J2930; J7609; A9270-GY

== ENCOUNTER 2021-06-12 13:20 | Inpatient (IN) | payer MEDICARE ==
[2021-06-12] MEDS ORDERED: DUONEB 0.5-3 MG/3 ml Neb IH ONE ×2 (13:27→13:28)
[2021-06-12] MEDS ORDERED: Zithromax 500 MG/ 250 ML NaCl Premix 500 MG/250 ML IVPB IV STA (13:28)
[2021-06-12] MEDS ORDERED: solu-MEDROL 125 MG, Sterile H2O 10 ml 2 ML IV ONE ×2 (13:28)
[2021-06-12] MEDS ORDERED: ROCEPHIN 2 Gm-D5w 50ML BAG** 2 G/50 ML IVPB IV STA (13:30)
[2021-06-12 13:39] LABS: A-aADO2 201; ABG HEMOGLOBIN 13.6; ABG POTASSIUM 3.9 (3.5-5.1); ABG SITE RIGHT RADIAL; ALLEN TEST OK? YES; ARTERIAL BLD GAS O2 SATURATION 94.3 % (95-100); ARTERIAL BLOOD GAS BASE EXCESS 5.8 (-2.0-2.0); ARTERIAL BLOOD GAS FIO2 44 %; ARTERIAL BLOOD GAS PCO2 40 mmHg (35-45); ARTERIAL BLOOD GAS PO2 63 mmHg (75-100); ARTERIAL BLOOD GAS pH 7.48 (7.35-7.45); CARBOXYHEMOGLOBIN 1.9 % THgb (0.0-6.9); HCO3- 29.8 (22-28); Lactic Acid 0.6 (0.4-2.0); Methhemoglobin 0.5 % (1.4-1.5)
[2021-06-12] MEDS ORDERED: ROCEPHIN 2 Gm-D5w 50ML BAG** 2 G/50 ML IVPB IV ONE (13:53)
[2021-06-12] MEDS ORDERED: Zithromax 500 MG/ 250 ML NaCl Premix 500 MG/250 ML IVPB IV ONE (13:53)
--- NOTE | 2021-06-12 14:15 | ERPHSYRPT ---
- History of Present Illness Time Seen by Provider: 06/12/21 13:21 Source: patient, EMS Exam Limitations: no limitations Patient Subjective Stated Complaint: pt SOB since Sunday Triage Nursing Assessment: Pt brought to the ER via EMS, tachycardic, hypoxic, febrile, tachypnic, denies pain, refusing any life support if needed, j carlos lower ext mottled, pt wears 4L NC at home, pulses bounding, skin hot/normal/dry, dry cough, diminished lung sounds Physician History: 75 years old male with history of chronic respiratory failure COPD on 4 L oxygen, hypertension, hyperlipidemia, congestive heart failure, diabetes mellitus presented to the ER with progressively worsening shortness of breath and cough productive of brownish sputum since yesterday of with associated increasing work of breathing with wheezing. Patient has been using neb treatments and oxygen with no significant relief. Also reports having fever with a T-max of 103.2 on presentation in the ER. Patient has a oxygen saturation in low 80s on presentation after receiving neb treatments and steroids via EMS. Timing/Duration: yesterday, constant, gradual onset, worse Activities at Onset: activity, rest Severity of Dyspnea-Max: severe Severity of Dyspnea-Current: severe Possible Cause: unknown cause Modifying Factors: Improves With: albuterol nebulizer, coughing, oxygen Associated Symptoms: cough, chest pain/discomfort, fever, heaviness, productive cough, tightness Allergies/Adverse Reactions: nicotine [From Nicoderm CQ] Allergy (Severe, Verified 06/12/21 13:38) Rash Home Medications: Albuterol 2.5 mg/3 ml Neb [Proventil 2.5 mg/3 ml Neb] 1 neb IH Q6H PRN 02/04/14 [History] Aspirin 81 mg PO DAILY 02/04/14 [History] Metformin HCl 500 mg [Glucophage 500 MG] 500 mg PO BIDWM 02/04/14 [History] Omeprazole 20 MG [Prilosec 20 mg] 20 mg PO BIDAC 02/04/14 [History] Nitroglycerin 0.4 mg Tablet [Nitrostat 0.4 MG Tablet] 0.4 mg SL Q5MIN PRN MR X 3 PRN 08/01/16 [History] ALPRAZolam 1 MG [Xanax 1 mg] 1 mg PO BID 10/14/18 [History] Theophylline Anhydrous 300 mg PO BID 10/14/18 [History] Albuterol Common Canister [Ventolin Common Canister] 2 puff IH Q6HPRN PRN 06/01/20 [History] Isosorbide Mononitrate 60 mg [Imdur 60MG] 60 mg PO DAILY 06/01/20 [History] Metoprolol Tartrate 25 mg [Lopressor 25MG Tab] 25 mg PO BID 06/01/20 [History] Polyvinyl Alcohol Tears [Artificial Tears 15 ML] 1 drop OP Q4H PRN PRN 06/01/20 [History] Rosuvastatin Calcium 20 mg PO HS 06/01/20 [History] Pramipexole Di-HCl [Mirapex ER] 2.25 mg PO DAILY 01/25/21 [History] Prednisone 5 mg [Deltasone 5 mg] 5 mg PO DAILY 01/25/21 [History] Sacubitril/Valsartan [Entresto 24 mg-26 mg Tablet] 24 mg PO BID 01/25/21 [History] Spironolactone 25 mg [Aldactone 25 MG] 12.5 mg PO DAILY 01/25/21 [History] Albuterol Sulfate [Proair Digihaler] 2 puffs IH Q6H PRN 03/24/21 [History] Budesonide/Glycopyr/Formoterol [Breztri Aerosphere Inhaler] 2 puffs IH BID 03/24/21 [History] Hx Tetanus, Diphtheria Vaccination/Date Given: No Hx Influenza Vaccination/Date Given: Yes Hx Pneumococcal Vaccination/Date Given: Yes Travel Risk - International Travel Have you traveled outside of the country in past 3 weeks: No - Coronavirus Screening Are you exhibiting any of the following symptoms?: Yes Symptoms: Fever, Shortness of Breath - Vaccine Status Have you recieved a Covid-19 vaccination: No - Review of Systems Constitutional: Fever, Chills, Fatigue, Weakness Eyes: No Symptoms Ears, Nose, & Throat: Nose Congestion Respiratory: Cough, Dyspnea, Dyspnea on Exertion (GUERRA), Wheezing Cardiac: Chest Pain Abdominal/Gastrointestinal: No Symptoms Genitourinary Symptoms: No Symptoms Musculoskeletal: No Symptoms Skin: No Symptoms Neurological: No Symptoms Psychological: No Symptoms Endocrine: No Symptoms Hematologic/Lymphatic: No Symptoms Immunological/Allergic: No Symptoms - Past Medical History Pertinent Past Medical History: Yes Neurological History: No Pertinent History ENT History: No Pertinent History Cardiac History: Aneurysm, Hypertension Respiratory History: COPD, Sleep Apnea Endocrine Medical History: Diabetes Type II Musculoskeletal History: No Pertinent History GI Medical History: No Pertinent History, GERD History: No Pertinent History Psycho-Social History: Anxiety Male Reproductive Disorders: No Pertinent History Other Medical History: 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 Pt also states he had an increase of SOB and chest pain that he has seen Dr. Mallory for and he has been put on nitro. PT wears 4L O2 AT ALL TIMES - Past Surgical History Past Surgical History: Yes Neuro Surgical History: No Pertinent History Cardiac: No Pertinent History Respiratory: Other Gastrointestinal: Hernia Repair Genitourinary: No Pertinent History Musculoskeletal: Orthopedic Surgery Male Surgical History: Vasectomy Other Surgical History: BACK SURGERY, and ear surgery and a left lung biopsy. 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 - Social History Smoking Status: Former smoker How long have you smoked: 40 + Exposure to second hand smoke: No Drug Use: none Patient Lives Alone: No - Nursing Vital Signs Nursing Vital Signs: Initial Vital Signs Temperature 103.1 F 06/12/21 13:21 Pulse Rate 127 H 06/12/21 13:21 Respiratory Rate 35 H 06/12/21 13:21 Blood Pressure 126/82 06/12/21 13:21 O2 Sat by Pulse Oximetry 93 L 06/12/21 13:21 - Physical Exam General Appearance: moderate distress, alert, anxiety Eye Exam: PERRL/EOMI, eyes nml inspection Ears, Nose, Throat Exam: hearing grossly normal, pharyngeal erythema Neck Exam: normal inspection, non-tender, supple, full range of motion Respiratory Exam: diminished breath sounds, accessory muscle use, 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, rhonchi, wheezing Cardiovascular/Chest Exam: normal heart sounds, tachycardia Abdominal/Gastrointestinal Exam: soft, normal bowel sounds Extremity Exam: non-tender, normal range of motion Neurologic Exam: alert, oriented x 3, cooperative Skin Exam: normal color SpO2 Interpretation: O2 applied SpO2: 95 O2 Delivery: Nasal Cannula (6) - Course EKG Interpreted by Me: RATE (122), Sinus Tach, Right Winston Deviation, Right Bundle Branch Block, Non-specific ST Changes, Other (Not much change when compared with previous) Ordered Tests: Active Orders 24 hr Category Date Time Status Cuff Matcher STAT Care 06/12/21 13:29 Active EKG-ER Only STAT Care 06/12/21 13:28 Active IV Insertion STAT Care 06/12/21 13:28 Active Oxygen-ED Only Nasal Cannula 6 lpm Care 06/12/21 13:28 Active CHEST 1 VIEW (PORTABLE) Stat Exams 06/12/21 13:29 Taken CHEST WITH CONTRAST [CT] Stat Exams 06/12/21 15:55 Taken ARTERIAL BLOOD GASES Stat Lab 06/12/21 13:34 Completed BLOOD CULTURE Stat Lab 06/12/21 14:00 Received CBC W DIFF Stat Lab 06/12/21 13:52 Completed CMP Stat Lab 06/12/21 13:52 Completed D-DIMER QUANTITATIVE Stat Lab 06/12/21 14:57 Completed Lactic Acid Stat Lab 06/12/21 13:34 Completed MAGNESIUM Stat Lab 06/12/21 13:52 Completed NT PRO BNP Stat Lab 06/12/21 13:52 Completed TROPONIN Q3H Lab 06/12/21 13:52 Completed TROPONIN Q3H Lab 06/12/21 16:30 Ordered TROPONIN Q3H Lab 06/12/21 19:30 Ordered TROPONIN Q3H Lab 06/12/21 22:30 Ordered TROPONIN Q3H Lab 06/13/21 01:30 Ordered UA W/RFX UR CULTURE Stat Lab 06/12/21 13:29 Ordered Respiratory Therapy Assessment DAILY RT 06/12/21 13:51 Active Medication Summary Discontinued Medications Generic Name Dose Route Start Last Admin Trade Name Freq PRN Reason Stop Dose Admin Albuterol/Ipratropium Confirm 06/12/21 13:27 Ipratropium/Albuterol Sulfate 3 Ml Ampul.Neb Administered 06/12/21 13:28 Dose 3 ml IH .STK-MED ONE Albuterol/Ipratropium 3 ml 06/12/21 13:28 06/12/21 13:40 Ipratropium/Albuterol Sulfate 3 Ml Ampul.Neb IH 06/12/21 13:29 3 ml STAT ONE Administration Methylprednisolone Sodium 0 mg 06/12/21 13:28 06/12/21 14:01 Succinate 125 mg/ Sterile IV 06/12/21 13:29 Not Given Water 2 ml STAT ONE Azithromycin 500 mg in 250 mls @ 250 mls/hr 06/12/21 13:28 06/12/21 14:59 Zithromax 500 Mg/ 250 Ml Nacl Premix IV 06/12/21 14:27 250 mls/hr STAT STA 250 mls/hr Administration Ceftriaxone Sodium/Dextrose 2 g in 50 mls @ 100 mls/hr 06/12/21 13:30 06/12/21 14:27 Rocephin 2 Gm-D5w 50ml Bag IV 06/12/21 13:59 Infused STAT STA Infusion Azithromycin Confirm 06/12/21 13:53 Zithromax 500 Mg/ 250 Ml Nacl Premix Administered 06/12/21 13:54 Dose 500 mg in 250 mls @ ud IV .STK-MED ONE Ceftriaxone Sodium/Dextrose Confirm 06/12/21 13:53 Rocephin 2 Gm-D5w 50ml Bag Administered 06/12/21 13:54 Dose 2 g in 50 mls @ ud IV .STK-MED ONE Lab/Rad Data: Laboratory Result Diagrams 06/12/21 13:52 06/12/21 13:52 Laboratory Results 06/12/21 06/12/21 06/12/21 Range/Units 14:57 13:52 13:52 WBC (4.0-10.5) K/mm3 RBC (4.1-5.6) M/mm3 Hgb (12.5-18.0) gm/dl Hct (42-50) % MCV (78-100) fl MCH (26-32) pg MCHC (32-36) g/dl RDW (11.5-14.0) % Plt Count (150-450) K/mm3 MPV (7.5-11.0) fl Gran % (36.0-66.0) % Eos # (Auto) (0-0.5) Absolute Lymphs (auto) (1.0-4.6) Absolute Monos (auto) (0.0-1.3) Lymphocytes % (24.0-44.0) % Monocytes % (0.0-12.0) % Eosinophils % (0.00-5.0) % Basophils % (0.0-0.4) % Absolute Granulocytes (1.4-6.9) Basophils # (0-0.4) D-Dimer 2228 H* (215-500) ng/mL Puncture Site pCO2 (35-45) mmHg pO2 (75-100) mmHg Base Excess (-2.0-2.0) O2 Saturation (94-100) g/dF ABG pH (7.35-7.45) ABG HCO3 (22-28) ABG O2 Sat (Measured) (95-100) % Gokul Test A-a Gradient a/A Ratio Hemoglobin Carboxyhemoglobin (0.0-6.9) % THgb Methemoglobin (1.4-1.5) % Potassium 3.8 (3.5-5.1) Temperature C POC O2 Flow Rate % Sodium 137 (137-145) mmol/L Chloride 100 (98-107) mmol/L Carbon Dioxide 27 (22-30) mmol/L Anion Gap 13.0 (5-15) MEQ/L BUN 14 (9-20) mg/dL Creatinine 0.59 L (0.66-1.25) mg/dL Estimated GFR > 60.0 ML/MIN Glucose 121 H (74-106) mg/dL Lactic Acid (0.4-2.0) Calcium 9.0 (8.4-10.2) mg/dL Magnesium 1.9 (1.6-2.3) mg/dL Total Bilirubin 1.60 H (0.2-1.3) mg/dL AST 20 (17-59) U/L ALT 14 (0-50) U/L Alkaline Phosphatase 51 (38-126) U/L Troponin I < 0.012 (0.000-0.034) ng/mL NT-Pro-B Natriuret Pep 1150 H (0-900) pg/mL Serum Total Protein 7.0 (6.3-8.2) g/dL Albumin 4.0 (3.5-5.0) g/dL 06/12/21 06/12/21 Range/Units 13:52 13:34 WBC 14.9 H (4.0-10.5) K/mm3 RBC 4.94 (4.1-5.6) M/mm3 Hgb 13.2 (12.5-18.0) gm/dl Hct 42.1 (42-50) % MCV 85.2 (78-100) fl MCH 26.7 (26-32) pg MCHC 31.4 L (32-36) g/dl RDW 16.4 H (11.5-14.0) % Plt Count 185 (150-450) K/mm3 MPV 10.2 (7.5-11.0) fl Gran % 89.5 H (36.0-66.0) % Eos # (Auto) 0.01 (0-0.5) Absolute Lymphs (auto) 0.66 L (1.0-4.6) Absolute Monos (auto) 0.87 (0.0-1.3) Lymphocytes % 4.4 L (24.0-44.0) % Monocytes % 5.9 (0.0-12.0) % Eosinophils % 0.1 (0.00-5.0) % Basophils % 0.1 (0.0-0.4) % Absolute Granulocytes 13.30 H (1.4-6.9) Basophils # 0.02 (0-0.4) D-Dimer (215-500) ng/mL Puncture Site RIGHT RADIAL pCO2 40 (35-45) mmHg pO2 63 L (75-100) mmHg Base Excess 5.8 H (-2.0-2.0) O2 Saturation 92.0 L (94-100) g/dF ABG pH 7.48 H (7.35-7.45) ABG HCO3 29.8 H* (22-28) ABG O2 Sat (Measured) 94.3 L (95-100) % Gokul Test YES A-a Gradient 201 a/A Ratio 0.24 Hemoglobin 13.6 Carboxyhemoglobin 1.9 (0.0-6.9) % THgb Methemoglobin 0.5 L (1.4-1.5) % Potassium 3.9 (3.5-5.1) Temperature 37.0 C POC O2 Flow Rate 44 % Sodium (137-145) mmol/L Chloride (98-107) mmol/L Carbon Dioxide (22-30) mmol/L Anion Gap (5-15) MEQ/L BUN (9-20) mg/dL Creatinine (0.66-1.25) mg/dL Estimated GFR ML/MIN Glucose (74-106) mg/dL Lactic Acid 0.6 (0.4-2.0) Calcium (8.4-10.2) mg/dL Magnesium (1.6-2.3) mg/dL Total Bilirubin (0.2-1.3) mg/dL AST (17-59) U/L ALT (0-50) U/L Alkaline Phosphatase (38-126) U/L Troponin I (0.000-0.034) ng/mL NT-Pro-B Natriuret Pep (0-900) pg/mL Serum Total Protein (6.3-8.2) g/dL Albumin (3.5-5.0) g/dL - Progress Progress: improved Air Movement: fair Progress Note: 06/12/21 16:26 Patient was hypoxic on presentation and in moderate distress, increased oxygen to 6 L, given another breathing treatment, on reevaluation feeling better and ma intaining saturation around 95% on 6 L. Chest x-ray showed bilateral airspace disease and given it dose of antibiotics Rocephin/Zithromax. Work-up showed white count of almost 15 with normal lactate and grossly unremarkable chemistries. EKG showed sinus tach without any ST elevations and negative initial troponins. Discussed with Dr. Meyer, reviewed history, work-up and patient is accepted for admission. Blood Culture(s) Obtained: Yes Antibiotics given: Yes Discussed with : Rocio Will see patient in: hospital (observation) Counseled pt/family regarding: lab results, diagnosis, rad results - Departure Departure Disposition: Observation Clinical Impression: Acute on chronic respiratory failure with hypoxia, Bilateral pneumonia, COPD (chronic obstructive pulmonary disease) Condition: Stable Critical Care Time: Yes Critical Care Time(excluding separately billable procedures): Critical 30-74 mins Referrals: DAV SEALS DO [Primary Care Provider] - Follow up/PCP as directed Instructions: Chronic Obstructive Pulmonary Disease
[2021-06-12 14:16] LABS: BASOPHIL % 0.1 % (0.0-0.4); Basophil (Absolute #) 0.02 (0-0.4); Eosinophil % 0.1 % (0.00-5.0); Eosinophil (Absolute #) 0.01 (0-0.5); Hematocrit 42.1 % (42-50); Hemoglobin 13.2 gm/dl (12.5-18.0); Lymphocyte (Absolute #) 0.66 (1.0-4.6); Lymphocytes % 4.4 % (24.0-44.0); Mean Cell Volume 85.2 fl (78-100); Mean Corpuscular Hemoglobin 26.7 pg (26-32); Mean Corpuscular Hgb Concent. 31.4 g/dl (32-36); Mean Platelet Volume 10.2 fl (7.5-11.0); Monocyte (Absolute #) 0.87 (0.0-1.3); Monocytes % 5.9 % (0.0-12.0); Neutrophil % 89.5 % (36.0-66.0); Platelet Count 185 K/mm3 (150-450); Red Blood Count 4.94 M/mm3 (4.1-5.6); Red Cell Distribution Width 16.4 % (11.5-14.0); White Blood Count 14.9 K/mm3 (4.0-10.5)
[2021-06-12 14:41] LABS: ALKALINE PHOSPHATASE 51 U/L (38-126); BLOOD UREA NITROGEN 14 mg/dL (9-20); CHLORIDE 100 mmol/L (98-107); Carbon Dioxide 27 mmol/L (22-30); Creatinine 1 0.59 mg/dL (0.66-1.25); EST GLOMERULAR FILTRATION RATE > 60.0 ML/MIN; Glucose 121 mg/dL (74-106); MAGNESIUM 1.9 mg/dL (1.6-2.3); NT PRO BNP 1150 pg/mL (0-900); Potassium 3.8 mmol/L (3.5-5.1); SGOT/AST 20 U/L (17-59); SGPT/ALT 14 U/L (0-50); SODIUM 137 mmol/L (137-145)
--- NOTE | 2021-06-12 19:05 | XRAY ---
Indication: Short of breath. Elevated d-dimer. Suspect Covid 19. Multiple contiguous axial images obtained through the chest using 80 cc Isovue 370 contrast and PE protocol. Comparison: Conventional CT chest November 24, 2020. There is good opacification of the pulmonary arteries to include the lobar and segmental branches. However mild diffuse respiration artifact limits evaluation for pulmonary embolus. No obvious pulmonary embolus. Heart not enlarged. Aorta remains minimally arteriosclerotic without aneurysm/dissection. Again slightly prominent mediastinal and bilateral hilar lymph nodes, largest subcarinal measuring 1.8 x 3.2 cm. Lungs again demonstrates advanced pulmonary emphysema with scattered fibrosis/scarring and left upper lung suture material. New moderate consolidating bilateral lower lobe airspace disease with tiny left effusion. Bony thorax intact. Limited upper abdomen unremarkable. Impression: 1. Respiration artifact limits evaluation for pulmonary embolus. No obvious pulmonary embolus. 2. New bilateral lower lobe consolidating airspace disease with tiny left effusion. 3. Grossly stable prominent mediastinal and hilar lymph nodes. 4. Again extensive pulmonary emphysema with scattered fibrosis/scarring. Comment: Preliminary interpretation made by [facility]. No critical discrepancy.
--- NOTE | 2021-06-12 19:07 | XRAY ---
Indication: Fever and cough. Suspect Covid 19. Comparison: March 24, 2021. Portable chest again demonstrates COPD, scattered fibrosis/scarring, and left upper lung suture material. New CT proven bibasilar consolidating airspace disease. Bony thorax intact.
[2021-06-12 19:08] LABS: Appearance CLEAR (CLEAR); Bilirubin NEGATIVE (NEGATIVE); Blood NEGATIVE Ery/ul (0-5); Epithelial Cells RARE /HPF (FEW); Glucose NEGATIVE (NEGATIVE); Ketones SMALL (NEGATIVE); Leukocyte Esterase NEGATIVE (NEGATIVE); Mucus SLIGHT /HPF (NEGATIVE); Nitrite NEGATIVE (NEGATIVE); Protein,Urine Dip 30 (Negative); Urobilinogen 2 mg/dL (0-1); WBC 0-2 /HPF (0-5)
[2021-06-12] MEDS ORDERED: PROVENTIL 2.5 MG/3 ML NEB IH ONE ×2 (19:12→19:14)
[2021-06-12 19:14] LABS: Bacteria NONE SEEN /HPF (NEGATIVE)
[2021-06-12] MEDS ORDERED: Zofran 4 MG/2 ML VIAL IV PRN (19:46)
[2021-06-12] MEDS ORDERED: TYLENOL 325 MG PO PRN (19:46)
[2021-06-12] MEDS ORDERED: Nitrostat 0.4 MG Tablet SL PRN (21:30)
[2021-06-12] MEDS ORDERED: Artificial Tears 15 ML OP PRN (21:32)
[2021-06-12] MEDS: Mirapex 0.5 MG Tablet PO SCH (21:56)
[2021-06-12] MEDS: ECOTRIN 81 MG PO SCH (21:58)
[2021-06-12] MEDS: Protonix 40MG Tablet PO SCH (21:58)
[2021-06-12] MEDS: NORVASC 5 MG PO SCH (21:58)
[2021-06-12] MEDS: Imdur 60MG PO SCH (21:59)
[2021-06-12] MEDS: Lopressor 25MG Tab PO SCH (21:59)
[2021-06-12] MEDS: Sodium Chloride 0.9% 1000 ML 1,000 ML IV SCH (21:59)
[2021-06-12] MEDS: XANAX 1 MG PO SCH (21:59)
[2021-06-12] MEDS: Aldactone 25 MG PO SCH (21:59)
[2021-06-12] MEDS ORDERED: THEOPHYLLINE ER 24HR PO SCH (22:00)
[2021-06-12] MEDS: DUONEB 0.5-3 MG/3 ml Neb IH SCH (23:48)
[2021-06-13] MEDS ORDERED: solu-MEDROL ONE ×2 (00:32→05:02)
[2021-06-13] MEDS ORDERED: Sterile H2O 10 ml IJ ONE ×2 (00:32→05:02)
[2021-06-13] MEDS: solu-MEDROL 60 MG, Sterile H2O 10 ml 2 ML IV SCH ×8 (00:37→17:50)
[2021-06-13] MEDS: DUONEB 0.5-3 MG/3 ml Neb IH SCH ×4 (01:24→18:51)
[2021-06-13 04:12] LABS: ALBUMIN 3.4 g/dL (3.5-5.0); ALKALINE PHOSPHATASE 48 U/L (38-126); ANION GAP 12.9 MEQ/L (5-15); BLOOD UREA NITROGEN 12 mg/dL (9-20); CHLORIDE 101 mmol/L (98-107); Calcium 8.8 mg/dL (8.4-10.2); Carbon Dioxide 28 mmol/L (22-30); Creatinine 1 0.57 mg/dL (0.66-1.25); EST GLOMERULAR FILTRATION RATE > 60.0 ML/MIN; Glucose 145 mg/dL (74-106); Potassium 4.2 mmol/L (3.5-5.1); SGOT/AST 20 U/L (17-59); SGPT/ALT 14 U/L (0-50); SODIUM 137 mmol/L (137-145); Total Protein 5.9 g/dL (6.3-8.2)
[2021-06-13 05:45] LABS: Absolute Neutrophil Ct (ANC) 8.35 (1.4-6.9); BASOPHIL % 0.1 % (0.0-0.4); Basophil (Absolute #) 0.01 (0-0.4); Eosinophil (Absolute #) 0 (0-0.5); Hematocrit 39.8 % (42-50); Hemoglobin 12.3 gm/dl (12.5-18.0); Lymphocyte (Absolute #) 0.28 (1.0-4.6); Lymphocytes % 3.2 % (24.0-44.0); Mean Cell Volume 86.7 fl (78-100); Mean Corpuscular Hemoglobin 26.8 pg (26-32); Mean Corpuscular Hgb Concent. 30.9 g/dl (32-36); Mean Platelet Volume 10.2 fl (7.5-11.0); Monocyte (Absolute #) 0.17 (0.0-1.3); Monocytes % 1.9 % (0.0-12.0); Neutrophil % 94.8 % (36.0-66.0); Platelet Count 202 K/mm3 (150-450); Red Blood Count 4.59 M/mm3 (4.1-5.6); Red Cell Distribution Width 16.5 % (11.5-14.0); White Blood Count 8.8 K/mm3 (4.0-10.5)
[2021-06-13] MEDS: Sodium Chloride 0.9% 1000 ML 1,000 ML IV SCH ×2 (07:53→20:40)
[2021-06-13] MEDS ORDERED: VENTOLIN COMMON CANISTER IH PRN (08:08)
[2021-06-13] MEDS ORDERED: NON-FORMULARY ITEM (Albuterol Sulfate [Proair Digihaler] 90 MCG Aer.Pw.Bas) IH PRN (08:08)
[2021-06-13] MEDS ORDERED: PROVENTIL 2.5 MG/3 ML NEB IH PRN (08:08)
[2021-06-13] MEDS ORDERED: MEDICATION INTERVENTION MC SCH (09:00)
[2021-06-13 09:06] LABS: Slide Review 1 YES
[2021-06-13] MEDS ORDERED: NON-FORMULARY ITEM (Sacubitril/Valsartan [Entresto 97 Mg-103 Mg Tablet] 1 EACH Tablet) PO SCH (10:00)
[2021-06-13] MEDS ORDERED: ENTRESTO 49 MG-51 MG TABLET PO SCH ×2 (10:00→13:57)
[2021-06-13] MEDS ORDERED: LASIX 20 MG PO SCH (10:00)
[2021-06-13] MEDS ORDERED: PROTONIX 40 MG IV IV SCH (10:00)
[2021-06-13] MEDS ORDERED: THEOPHYLLINE ANHYDROUS 300 MG PO SCH (10:00)
[2021-06-13] MEDS ORDERED: NON-FORMULARY ITEM (Budesonide/Glycopyr/Formoterol [Breztri Aerosphere Inhaler] 10.7 GM Hf IH SCH (10:00)
[2021-06-13] MEDS: ROCEPHIN 1 Gm-D5w 50 ml Bag** 1 G/50 ML IVPB IV SCH (12:00)
[2021-06-13] MEDS: XANAX 1 MG PO SCH ×2 (12:03→21:20)
[2021-06-13] MEDS: Protonix 40MG Tablet PO SCH ×2 (12:03→21:20)
[2021-06-13] MEDS: DELTASONE 5 MG PO SCH (12:03)
[2021-06-13] MEDS: ECOTRIN 81 MG PO SCH (12:03)
[2021-06-13] MEDS: Zithromax 500 MG/ 250 ML NaCl Premix 500 MG/250 ML IVPB IV SCH (12:46)
[2021-06-13] MEDS: Lopressor 25MG Tab PO SCH ×3 (14:16→21:19)
[2021-06-13] MEDS: NORVASC 5 MG PO SCH (14:16)
[2021-06-13] MEDS: Imdur 60MG PO SCH (15:54)
[2021-06-13] MEDS: Aldactone 25 MG PO SCH (15:54)
[2021-06-13] MEDS: ZOCOR 20MG PO SCH (21:19)
[2021-06-13] MEDS: ENTRESTO 49 MG-51 MG TABLET PO SCH (21:20)
[2021-06-13] MEDS: Mirapex 0.5 MG Tablet PO SCH (21:20)
[2021-06-13] MEDS: HUMALOG SQ PRN (21:21)
[2021-06-13] MEDS ORDERED: NON-FORMULARY ITEM (Rosuvastatin Calcium [Rosuvastatin Calcium] 20 MG Tablet) PO SCH (22:00)
[2021-06-13] MEDS: THEOPHYLLINE ER 24HR PO SCH (22:41)
[2021-06-14] MEDS: solu-MEDROL 60 MG, Sterile H2O 10 ml 2 ML IV SCH ×8 (00:16→18:00)
[2021-06-14] MEDS: DUONEB 0.5-3 MG/3 ml Neb IH SCH ×4 (01:31→18:56)
[2021-06-14] MEDS: Sodium Chloride 0.9% 1000 ML 1,000 ML IV SCH ×2 (05:18→17:07)
[2021-06-14 05:30] LABS: Absolute Neutrophil Ct (ANC) 9.15 (1.4-6.9); BASOPHIL % 0.1 % (0.0-0.4); Basophil (Absolute #) 0.01 (0-0.4); Eosinophil % 0.1 % (0.00-5.0); Eosinophil (Absolute #) 0.01 (0-0.5); Hematocrit 38.6 % (42-50); Hemoglobin 11.6 gm/dl (12.5-18.0); Lymphocyte (Absolute #) 0.36 (1.0-4.6); Lymphocytes % 3.7 % (24.0-44.0); Mean Cell Volume 88.1 fl (78-100); Mean Corpuscular Hemoglobin 26.5 pg (26-32); Mean Corpuscular Hgb Concent. 30.1 g/dl (32-36); Mean Platelet Volume 9.7 fl (7.5-11.0); Monocyte (Absolute #) 0.27 (0.0-1.3); Monocytes % 2.8 % (0.0-12.0); Neutrophil % 93.3 % (36.0-66.0); Platelet Count 196 K/mm3 (150-450); Red Blood Count 4.38 M/mm3 (4.1-5.6); Red Cell Distribution Width 16.2 % (11.5-14.0); White Blood Count 9.8 K/mm3 (4.0-10.5)
[2021-06-14 06:04] LABS: Slide Review 1 YES
[2021-06-14 06:07] LABS: ALBUMIN 3.1 g/dL (3.5-5.0); ALKALINE PHOSPHATASE 45 U/L (38-126); ANION GAP 11.5 MEQ/L (5-15); BLOOD UREA NITROGEN 14 mg/dL (9-20); CHLORIDE 99 mmol/L (98-107); Calcium 8.9 mg/dL (8.4-10.2); Carbon Dioxide 31 mmol/L (22-30); Creatinine 1 0.56 mg/dL (0.66-1.25); EST GLOMERULAR FILTRATION RATE > 60.0 ML/MIN; Glucose 155 mg/dL (74-106); Potassium 4.6 mmol/L (3.5-5.1); SGOT/AST 17 U/L (17-59); SGPT/ALT 14 U/L (0-50); SODIUM 137 mmol/L (137-145); Total Protein 5.4 g/dL (6.3-8.2)
[2021-06-14] MEDS: ENTRESTO 49 MG-51 MG TABLET PO SCH ×2 (10:04→21:21)
[2021-06-14] MEDS: XANAX 1 MG PO SCH ×2 (10:04→21:22)
[2021-06-14] MEDS: ECOTRIN 81 MG PO SCH (10:04)
[2021-06-14] MEDS: ROCEPHIN 1 Gm-D5w 50 ml Bag** 1 G/50 ML IVPB IV SCH (10:04)
[2021-06-14] MEDS: Protonix 40MG Tablet PO SCH ×2 (10:04→21:22)
[2021-06-14] MEDS: DELTASONE 5 MG PO SCH (10:05)
[2021-06-14] MEDS: THEOPHYLLINE ER 24HR PO SCH ×3 (10:05→21:26)
[2021-06-14] MEDS: Lopressor 25MG Tab PO SCH ×2 (10:08→13:44)
[2021-06-14] MEDS: Zithromax 500 MG/ 250 ML NaCl Premix 500 MG/250 ML IVPB IV SCH (11:26)
[2021-06-14] MEDS: HUMALOG SQ PRN (11:34)
--- NOTE | 2021-06-14 13:03 | PCM.HP ---
History of Present Illness - Chief Complaint Chief Complaint: BILATERAL PNEUMONIA, RESPIRATORY FAILURE Date: 06/13/21 History of Present Illness: is a 75 year old male who presented to ER with progressive worsening of cough and sob. PMHx HTN,CHF,DM2,COPD on home O2 4L/NC. Medications & Allergies Home Medications: Home Medication List Albuterol 2.5 mg/3 ml Neb [Proventil 2.5 mg/3 ml Neb] 1 neb IH Q6H PRN 04/12 [History Confirmed 06/12/21] Aspirin 81 mg PO DAILY 02/04/14 [History Confirmed 06/12/21] Omeprazole 20 MG [Prilosec 20 mg] 20 mg PO BIDAC 02/04/14 [History Confirmed 06/12/21] Nitroglycerin 0.4 mg Tablet [Nitrostat 0.4 MG Tablet] 0.4 mg SL Q5MIN PRN MR X 3 PRN 08/01/16 [History Confirmed 06/12/21] ALPRAZolam 1 MG [Xanax 1 mg] 1 mg PO BID 10/14/18 [History Confirmed 06/12/21] Theophylline Anhydrous 300 mg PO BID 10/14/18 [History Confirmed 06/12/21] Albuterol Common Canister [Ventolin Common Canister] 2 puff IH Q6HPRN PRN 06/01/20 [History Confirmed 06/12/21] Isosorbide Mononitrate 60 mg [Imdur 60MG] 60 mg PO DAILY 06/01/20 [History Confirmed 06/12/21] Metoprolol Tartrate 25 mg [Lopressor 25MG Tab] 25 mg PO BID 06/01/20 [History Confirmed 06/12/21] Polyvinyl Alcohol Tears [Artificial Tears 15 ML] 1 drop OP Q4H PRN PRN 06/01/20 [History Confirmed 06/12/21] Rosuvastatin Calcium 20 mg PO HS 06/01/20 [History Confirmed 06/12/21] Prednisone 5 mg [Deltasone 5 mg] 5 mg PO DAILY 01/25/21 [History Confirmed 06/12/21] Spironolactone 25 mg [Aldactone 25 MG] 12.5 mg PO DAILY 01/25/21 [History Confirmed 06/12/21] Albuterol Sulfate [Proair Digihaler] 2 puffs IH Q6H PRN 03/24/21 [History Confirmed 06/12/21] Budesonide/Glycopyr/Formoterol [Breztri Aerosphere Inhaler] 2 puffs IH BID 03/24/21 [History Confirmed 06/12/21] Amlodipine Besylate 2.5 mg PO DAILY 06/12/21 [History Confirmed 06/12/21] Furosemide 20 mg [Lasix 20 mg] 20 mg PO DAILY 06/12/21 [History Confirmed 06/12/21] Pramipexole Di-HCl [Mirapex] 0.25 mg PO DAILY 06/12/21 [History Confirmed 06/12/21] Sacubitril/Valsartan [Entresto 97 mg-103 mg Tablet] 1 each PO DAILY 06/12/21 [History Confirmed 06/12/21] Allergies/Adverse Reactions: Allergies Allergy/AdvReac Type Severity Reaction Status Date / Time nicotine [From Nicoderm CQ] Allergy Severe Rash Verified 06/12/21 13:38 - Past Medical History Past Medical History: Yes Neurological History: No Pertinent History ENT History: No Pertinent History Cardiac History: Aneurysm, Hypertension Respiratory History: COPD, Sleep Apnea Endocrine Medical History: Diabetes Type II Musculoskelatal History: No Pertinent History GI Medical History: No Pertinent History, GERD History: No Pertinent History Pyscho-Social History: Anxiety Male Reproductive Disorders: No Pertinent History Comment: 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 Pt also states he had an increase of SOB and chest pain that he has seen Dr. Mallory for and he has been put on nitro. PT wears 4L O2 AT ALL TIMES - Past Surgical History Past Surgical History: Yes Neuro Surgical History: No Pertinent History Cardiac History: No Pertinent History Respiratory Surgery: Other GI Surgical History: Hernia Repair Genitourinary Surgical Hx: No Pertinent History Musculskeletal Surgical Hx: Orthopedic Surgery Male Surgical History: Vasectomy Other Surgical History: BACK SURGERY, and ear surgery and a left lung biopsy. 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, double hernia repair, - Social History Smoking Status: Former smoker How long have you smoked: 40 + Exposure to second hand smoke: No Alcohol: None Drug Use: none - Physical Exam Vital Signs: Vital Signs - 24 hr Temp Pulse Resp BP Pulse Ox 06/14/21 11:36 97.7 F 91 H 20 108/53 91 L 06/14/21 11:23 95 06/14/21 08:36 95 H 16 111/53 98 06/14/21 07:16 76 20 98 06/14/21 07:00 97.2 F 69 18 168/56 98 06/14/21 03:00 97.5 F 99 H 23 127/68 96 06/14/21 01:31 77 24 94 L 06/13/21 22:49 97.3 F 86 22 115/63 98 06/13/21 19:00 96.3 F 66 22 96/54 94 L 06/13/21 18:51 83 18 89 L 06/13/21 18:28 78 L 06/13/21 15:33 84 90/54 06/13/21 15:05 76 18 95 06/13/21 14:02 94 H 106/58 Results - Labs Lab/Micro Results: Lab Results-Last 24 Hours 06/13/21 06/13/21 06/14/21 Range/Units 16:37 21:03 04:25 WBC 9.8 (4.0-10.5) K/mm3 RBC 4.38 (4.1-5.6) M/mm3 Hgb 11.6 L (12.5-18.0) gm/dl Hct 38.6 L (42-50) % MCV 88.1 (78-100) fl MCH 26.5 (26-32) pg MCHC 30.1 L (32-36) g/dl RDW 16.2 H (11.5-14.0) % Plt Count 196 (150-450) K/mm3 MPV 9.7 (7.5-11.0) fl Gran % 93.3 H (36.0-66.0) % Eos # (Auto) 0.01 (0-0.5) Absolute Lymphs (auto) 0.36 L (1.0-4.6) Absolute Monos (auto) 0.27 (0.0-1.3) Lymphocytes % 3.7 L (24.0-44.0) % Monocytes % 2.8 (0.0-12.0) % Eosinophils % 0.1 (0.00-5.0) % Basophils % 0.1 (0.0-0.4) % Absolute Granulocytes 9.15 H (1.4-6.9) Basophils # 0.01 (0-0.4) Sodium (137-145) mmol/L Potassium (3.5-5.1) mmol/L Chloride (98-107) mmol/L Carbon Dioxide (22-30) mmol/L Anion Gap (5-15) MEQ/L BUN (9-20) mg/dL Creatinine (0.66-1.25) mg/dL Estimated GFR ML/MIN Glucose (74-106) mg/dL POC Glucometer 185 H 202 H (74 to 106) mg/dL Calcium (8.4-10.2) mg/dL Total Bilirubin (0.2-1.3) mg/dL AST (17-59) U/L ALT (0-50) U/L Alkaline Phosphatase (38-126) U/L Serum Total Protein (6.3-8.2) g/dL Albumin (3.5-5.0) g/dL Slides for Path Review YES 06/14/21 06/14/21 06/14/21 Range/Units 04:25 07:14 11:30 WBC (4.0-10.5) K/mm3 RBC (4.1-5.6) M/mm3 Hgb (12.5-18.0) gm/dl Hct (42-50) % MCV (78-100) fl MCH (26-32) pg MCHC (32-36) g/dl RDW (11.5-14.0) % Plt Count (150-450) K/mm3 MPV (7.5-11.0) fl Gran % (36.0-66.0) % Eos # (Auto) (0-0.5) Absolute Lymphs (auto) (1.0-4.6) Absolute Monos (auto) (0.0-1.3) Lymphocytes % (24.0-44.0) % Monocytes % (0.0-12.0) % Eosinophils % (0.00-5.0) % Basophils % (0.0-0.4) % Absolute Granulocytes (1.4-6.9) Basophils # (0-0.4) Sodium 137 (137-145) mmol/L Potassium 4.6 (3.5-5.1) mmol/L Chloride 99 (98-107) mmol/L Carbon Dioxide 31 H (22-30) mmol/L Anion Gap 11.5 (5-15) MEQ/L BUN 14 (9-20) mg/dL Creatinine 0.56 L (0.66-1.25) mg/dL Estimated GFR > 60.0 ML/MIN Glucose 155 H (74-106) mg/dL POC Glucometer 160 H 248 H (74 to 106) mg/dL Calcium 8.9 (8.4-10.2) mg/dL Total Bilirubin 0.40 (0.2-1.3) mg/dL AST 17 (17-59) U/L ALT 14 (0-50) U/L Alkaline Phosphatase 45 (38-126) U/L Serum Total Protein 5.4 L (6.3-8.2) g/dL Albumin 3.1 L (3.5-5.0) g/dL Slides for Path Review Microbiology 06/12/21 14:00 Blood Culture - Preliminary Blood NO GROWTH TO DATE 06/12/21 13:52 Blood Culture - Preliminary Blood NO GROWTH TO DATE Accuchecks Date 06/14/21 Date 06/14/21 Date 06/13/21 Date 06/13/21 Time 11:35 Time 07:30 Time 21:00 Time 17:05 - Radiology Impressions Radiology Exams & Impressions: Radiology Procedures Category Date Time Status CHEST 1 VIEW (PORTABLE) Stat Exams 06/12/21 13:29 Completed CHEST WITH CONTRAST [CT] Stat Exams 06/12/21 15:55 Completed
--- NOTE | 2021-06-14 13:07 | PCM.NOTE ---
Date and Time: 06/14/21 1306 Subjective Assessment: Patient states breathing is not better . Staff reports difficult if up to bathroom is very dyspnic . RT tried weaning O2 from 15L to 12 L and sats dropped.Denies chest pain or abd pain. Is bringing up a little phlem,states not as dark. Appetite is good. B/P low on admission 80 systlic and Lasix and [place] nalactone were held. Ejection fraction is 16% per Dr Jc ECHO JANUARY 2021. Objective Exam General Appearance: mild distress (conversational dyspnea), other (RT at bedside adm Duoneb Tx) Neurologic Exam: alert, oriented x 3, cooperative, normal mood/affect Skin Exam: normal color, warm, dry Eye Exam: eyes nml inspection Ears, Nose, Throat Exam: normal ENT inspection Neck Exam: normal inspection Respiratory Exam: diminished breath sounds, other (eew/ronchi/crackles right base cleared with neb tx and deep cough) Cardiovascular Exam: tachycardia (just finished resp Tx) Gastrointestinal/Abdomen Exam: soft, normal bowel sounds Extremity Exam: normal inspection (no edema) Back Exam: normal inspection OBJECTIVE DATA Vital Signs: Vital Signs - 24 hr Temp Pulse Resp BP Pulse Ox 06/14/21 11:36 97.7 F 91 H 20 108/53 91 L 06/14/21 11:23 95 06/14/21 08:36 95 H 16 111/53 98 06/14/21 07:16 76 20 98 06/14/21 07:00 97.2 F 69 18 168/56 98 06/14/21 03:00 97.5 F 99 H 23 127/68 96 06/14/21 01:31 77 24 94 L 06/13/21 22:49 97.3 F 86 22 115/63 98 06/13/21 19:00 96.3 F 66 22 96/54 94 L 06/13/21 18:51 83 18 89 L 06/13/21 18:28 78 L 06/13/21 15:33 84 90/54 06/13/21 15:05 76 18 95 06/13/21 14:02 94 H 106/58 Pain Assessment - Last Documented Pain Intensity 0 Intake and Output: Intake & Output 06/12/21 06/13/21 06/14/21 06/15/21 11:59 11:59 11:59 11:59 Intake Total 991 4262 Balance 991 4207 Weight 78.7 kg 78.6 kg Lab Results: Lab Results-Last 24 Hours 06/13/21 06/13/21 06/14/21 Range/Units 16:37 21:03 04:25 WBC 9.8 (4.0-10.5) K/mm3 RBC 4.38 (4.1-5.6) M/mm3 Hgb 11.6 L (12.5-18.0) gm/dl Hct 38.6 L (42-50) % MCV 88.1 (78-100) fl MCH 26.5 (26-32) pg MCHC 30.1 L (32-36) g/dl RDW 16.2 H (11.5-14.0) % Plt Count 196 (150-450) K/mm3 MPV 9.7 (7.5-11.0) fl Gran % 93.3 H (36.0-66.0) % Eos # (Auto) 0.01 (0-0.5) Absolute Lymphs (auto) 0.36 L (1.0-4.6) Absolute Monos (auto) 0.27 (0.0-1.3) Lymphocytes % 3.7 L (24.0-44.0) % Monocytes % 2.8 (0.0-12.0) % Eosinophils % 0.1 (0.00-5.0) % Basophils % 0.1 (0.0-0.4) % Absolute Granulocytes 9.15 H (1.4-6.9) Basophils # 0.01 (0-0.4) Sodium (137-145) mmol/L Potassium (3.5-5.1) mmol/L Chloride (98-107) mmol/L Carbon Dioxide (22-30) mmol/L Anion Gap (5-15) MEQ/L BUN (9-20) mg/dL Creatinine (0.66-1.25) mg/dL Estimated GFR ML/MIN Glucose (74-106) mg/dL POC Glucometer 185 H 202 H (74 to 106) mg/dL Calcium (8.4-10.2) mg/dL Total Bilirubin (0.2-1.3) mg/dL AST (17-59) U/L ALT (0-50) U/L Alkaline Phosphatase (38-126) U/L Serum Total Protein (6.3-8.2) g/dL Albumin (3.5-5.0) g/dL Slides for Path Review YES 06/14/21 06/14/21 06/14/21 Range/Units 04:25 07:14 11:30 WBC (4.0-10.5) K/mm3 RBC (4.1-5.6) M/mm3 Hgb (12.5-18.0) gm/dl Hct (42-50) % MCV (78-100) fl MCH (26-32) pg MCHC (32-36) g/dl RDW (11.5-14.0) % Plt Count (150-450) K/mm3 MPV (7.5-11.0) fl Gran % (36.0-66.0) % Eos # (Auto) (0-0.5) Absolute Lymphs (auto) (1.0-4.6) Absolute Monos (auto) (0.0-1.3) Lymphocytes % (24.0-44.0) % Monocytes % (0.0-12.0) % Eosinophils % (0.00-5.0) % Basophils % (0.0-0.4) % Absolute Granulocytes (1.4-6.9) Basophils # (0-0.4) Sodium 137 (137-145) mmol/L Potassium 4.6 (3.5-5.1) mmol/L Chloride 99 (98-107) mmol/L Carbon Dioxide 31 H (22-30) mmol/L Anion Gap 11.5 (5-15) MEQ/L BUN 14 (9-20) mg/dL Creatinine 0.56 L (0.66-1.25) mg/dL Estimated GFR > 60.0 ML/MIN Glucose 155 H (74-106) mg/dL POC Glucometer 160 H 248 H (74 to 106) mg/dL Calcium 8.9 (8.4-10.2) mg/dL Total Bilirubin 0.40 (0.2-1.3) mg/dL AST 17 (17-59) U/L ALT 14 (0-50) U/L Alkaline Phosphatase 45 (38-126) U/L Serum Total Protein 5.4 L (6.3-8.2) g/dL Albumin 3.1 L (3.5-5.0) g/dL Slides for Path Review Radiology Exams: Radiology Procedures Category Date Time Status CHEST 1 VIEW (PORTABLE) Stat Exams 06/12/21 13:29 Completed CHEST WITH CONTRAST [CT] Stat Exams 06/12/21 15:55 Completed Multi-Disciplinary Progress Notes: Multi-Disciplinary Progress Notes 06/14/21 10:12 Case Management Note by Gloria Friend PATIENT STILL ACUTELY ILL- WILL CONTINUE TO FOLLOW FOR NEEDS AT DC Initialized on 06/14/21 10:12 - END OF NOTE 06/13/21 18:29 Respiratory Note by Tyra Sprague O2 increased to 15lpm per Oxymizer Initialized on 06/13/21 18:29 - END OF NOTE Assessment/Plan (1) Bilateral pneumonia Current Visit: Yes Status: Acute Assessment & Plan: WBC improved Code(s): J18.9 - PNEUMONIA, UNSPECIFIED ORGANISM (2) Acute on chronic respiratory failure with hypoxia Current Visit: Yes Status: Acute Assessment & Plan: continue present care Code(s): J96.21 - ACUTE AND CHRONIC RESPIRATORY FAILURE WITH HYPOXIA (3) CHF (congestive heart failure) Current Visit: No Status: Chronic Assessment & Plan: EF=16% is on Entresto Code(s): I50.9 - HEART FAILURE, UNSPECIFIED (4) Hypotension Current Visit: Yes Status: Acute Assessment & Plan: improved with holding lasix yesterday. Code(s): I95.9 - HYPOTENSION, UNSPECIFIED
[2021-06-14] MEDS: ZOCOR 20MG PO SCH (21:22)
[2021-06-14] MEDS: Mirapex 0.5 MG Tablet PO SCH (21:26)
[2021-06-15] MEDS: DUONEB 0.5-3 MG/3 ml Neb IH SCH ×4 (01:02→18:52)
[2021-06-15] MEDS: solu-MEDROL 60 MG, Sterile H2O 10 ml 2 ML IV SCH ×8 (02:06→18:47)
[2021-06-15] MEDS: Sodium Chloride 0.9% 1000 ML 1,000 ML IV SCH ×2 (02:34→14:55)
[2021-06-15 05:50] LABS: Absolute Neutrophil Ct (ANC) 7.55 (1.4-6.9); BASOPHIL % 0.2 % (0.0-0.4); Basophil (Absolute #) 0.02 (0-0.4); Eosinophil (Absolute #) 0 (0-0.5); Hematocrit 38.7 % (42-50); Hemoglobin 11.6 gm/dl (12.5-18.0); Lymphocyte (Absolute #) 0.26 (1.0-4.6); Lymphocytes % 3.2 % (24.0-44.0); Mean Corpuscular Hemoglobin 26.4 pg (26-32); Mean Platelet Volume 9.9 fl (7.5-11.0); Monocyte (Absolute #) 0.24 (0.0-1.3); Neutrophil % 93.6 % (36.0-66.0); Platelet Count 213 K/mm3 (150-450); Red Cell Distribution Width 16.2 % (11.5-14.0); White Blood Count 8.1 K/mm3 (4.0-10.5)
[2021-06-15 06:21] LABS: ALBUMIN 2.9 g/dL (3.5-5.0); ALKALINE PHOSPHATASE 43 U/L (38-126); ANION GAP 8.3 MEQ/L (5-15); BLOOD UREA NITROGEN 14 mg/dL (9-20); CHLORIDE 100 mmol/L (98-107); Calcium 8.7 mg/dL (8.4-10.2); Carbon Dioxide 33 mmol/L (22-30); Creatinine 1 0.57 mg/dL (0.66-1.25); EST GLOMERULAR FILTRATION RATE > 60.0 ML/MIN; Glucose 145 mg/dL (74-106); Potassium 4.6 mmol/L (3.5-5.1); SGOT/AST 17 U/L (17-59); SGPT/ALT 19 U/L (0-50); SODIUM 136 mmol/L (137-145); Total Protein 5.1 g/dL (6.3-8.2)
[2021-06-15] MEDS: Zithromax 500 MG/ 250 ML NaCl Premix 500 MG/250 ML IVPB IV SCH (07:59)
[2021-06-15 08:22] LABS: Slide Review 1 YES
[2021-06-15] MEDS: THEOPHYLLINE ER 24HR PO SCH ×2 (09:50→21:53)
[2021-06-15] MEDS: Protonix 40MG Tablet PO SCH ×2 (09:51→21:53)
[2021-06-15] MEDS: Aldactone 25 MG PO SCH (09:51)
[2021-06-15] MEDS: Lopressor 25MG Tab PO SCH ×2 (09:51→21:54)
[2021-06-15] MEDS: DELTASONE 5 MG PO SCH (09:51)
[2021-06-15] MEDS: ECOTRIN 81 MG PO SCH (09:52)
[2021-06-15] MEDS: ENTRESTO 49 MG-51 MG TABLET PO SCH ×2 (09:52→21:54)
[2021-06-15] MEDS: LASIX 20 MG PO SCH (09:52)
[2021-06-15] MEDS: XANAX 1 MG PO SCH ×2 (09:53→21:54)
[2021-06-15] MEDS: ROCEPHIN 1 Gm-D5w 50 ml Bag** 1 G/50 ML IVPB IV SCH (09:53)
[2021-06-15] MEDS ORDERED: PULMICORT 0.5 MG/2 ML RESPULES IH SCH (13:00)
[2021-06-15] MEDS: PULMICORT 0.5 MG/2 ML RESPULES IH SCH ×2 (13:23→18:53)
[2021-06-15] MEDS: ZOCOR 20MG PO SCH (21:54)
[2021-06-15] MEDS: Mirapex 0.5 MG Tablet PO SCH (21:54)
[2021-06-16] MEDS: solu-MEDROL 60 MG, Sterile H2O 10 ml 2 ML IV SCH ×8 (00:01→21:24)
[2021-06-16] MEDS: DUONEB 0.5-3 MG/3 ml Neb IH SCH ×5 (01:45→23:19)
[2021-06-16] MEDS: Sodium Chloride 0.9% 1000 ML 1,000 ML IV SCH (04:19)
[2021-06-16 05:28] LABS: Absolute Neutrophil Ct (ANC) 6.86 (1.4-6.9); BASOPHIL % 0.1 % (0.0-0.4); Basophil (Absolute #) 0.01 (0-0.4); Eosinophil (Absolute #) 0 (0-0.5); Hematocrit 36.7 % (42-50); Lymphocyte (Absolute #) 0.28 (1.0-4.6); Lymphocytes % 3.8 % (24.0-44.0); Mean Cell Volume 87.6 fl (78-100); Mean Corpuscular Hemoglobin 26.3 pg (26-32); Mean Platelet Volume 9.6 fl (7.5-11.0); Monocyte (Absolute #) 0.26 (0.0-1.3); Monocytes % 3.5 % (0.0-12.0); Neutrophil % 92.6 % (36.0-66.0); Platelet Count 219 K/mm3 (150-450); Red Blood Count 4.19 M/mm3 (4.1-5.6); Red Cell Distribution Width 15.8 % (11.5-14.0); White Blood Count 7.4 K/mm3 (4.0-10.5)
[2021-06-16 05:54] LABS: ALBUMIN 2.6 g/dL (3.5-5.0); ALKALINE PHOSPHATASE 35 U/L (38-126); BLOOD UREA NITROGEN 14 mg/dL (9-20); CHLORIDE 96 mmol/L (98-107); Calcium 8.5 mg/dL (8.4-10.2); Carbon Dioxide 35 mmol/L (22-30); Creatinine 1 0.53 mg/dL (0.66-1.25); EST GLOMERULAR FILTRATION RATE > 60.0 ML/MIN; Glucose 141 mg/dL (74-106); Potassium 4.5 mmol/L (3.5-5.1); SGOT/AST 19 U/L (17-59); SGPT/ALT 24 U/L (0-50); SODIUM 135 mmol/L (137-145); Total Protein 4.6 g/dL (6.3-8.2)
[2021-06-16] MEDS: PULMICORT 0.5 MG/2 ML RESPULES IH SCH ×2 (06:47→17:20)
[2021-06-16 08:59] LABS: Slide Review 1 YES
--- NOTE | 2021-06-16 09:23 | XRAY ---
Indication: Bilateral pneumonia. Comparison: June 12, 2021. Portable chest again demonstrates bibasilar consolidating airspace disease, mildly improved on the right and mildly worsened on the left. Again COPD, scattered fibrosis/scarring, and left upper lungs additional material. Heart not enlarged. No new cardiopulmonary abnormalities.
[2021-06-16] MEDS: ECOTRIN 81 MG PO SCH (09:45)
[2021-06-16] MEDS: THEOPHYLLINE ER 24HR PO SCH ×2 (09:45→21:25)
[2021-06-16] MEDS: LASIX 20 MG PO SCH (09:45)
[2021-06-16] MEDS: ENTRESTO 49 MG-51 MG TABLET PO SCH ×2 (09:45→21:24)
[2021-06-16] MEDS: DELTASONE 5 MG PO SCH (09:45)
[2021-06-16] MEDS: Lopressor 25MG Tab PO SCH ×2 (09:46→21:23)
[2021-06-16] MEDS: Protonix 40MG Tablet PO SCH ×2 (09:46→21:24)
[2021-06-16] MEDS: XANAX 1 MG PO SCH ×2 (09:46→21:23)
[2021-06-16] MEDS: Aldactone 25 MG PO SCH (09:46)
[2021-06-16] MEDS: ROCEPHIN 1 Gm-D5w 50 ml Bag** 1 G/50 ML IVPB IV SCH (09:51)
[2021-06-16] MEDS: Zithromax 500 MG/ 250 ML NaCl Premix 500 MG/250 ML IVPB IV SCH (11:39)
--- NOTE | 2021-06-16 12:40 | PCM.NOTE ---
Date and Time: 06/16/21 1239 Subjective Assessment: Patient is slowly improving since use of BiPap. Oxymizer was on 13L now up in chair and decreased to 10L with sats in low 90s. Will start walking with PT as tolerated.Appetite is good and has had a normal BM. Cough productive of light green mucus. CXR this morning compaired to admission CXR 06/12/21 shows bibasilar airspace consolidation improving on the right but worse on the left. Objective Exam General Appearance: no apparent distress (wearing oxymizer at 10L), other (is dyspnic getting up to walk to the bathroom with aid.) Neurologic Exam: alert, oriented x 3, cooperative, normal mood/affect Skin Exam: normal color, warm, dry Ears, Nose, Throat Exam: normal ENT inspection Neck Exam: normal inspection Respiratory Exam: diminished breath sounds (but improved), crackles/rales (right base diminished BS left base) Gastrointestinal/Abdomen Exam: soft Extremity Exam: other (no pitting) OBJECTIVE DATA Vital Signs: Vital Signs - 24 hr Temp Pulse Resp BP Pulse Ox 06/16/21 09:00 97.1 F 92 H 25 H 136/67 96 06/16/21 06:51 83 22 98 06/16/21 05:00 97 F 68 18 110/61 96 06/16/21 01:45 73 20 97 06/16/21 01:00 98 F 66 21 118/61 96 06/15/21 21:00 97.5 F 79 20 116/63 97 06/15/21 19:02 92 H 24 97 06/15/21 17:00 97.9 F 92 H 22 106/63 100 06/15/21 13:29 104 H 24 94 L Pain Assessment - Last Documented Pain Intensity 0 Intake and Output: Intake & Output 06/14/21 06/15/21 06/16/21 06/17/21 11:59 11:59 11:59 11:59 Intake Total 4275 1209 0347 Output Total 850 676 Balance 4267 7001 4806 Weight 78.6 kg 78.6 kg 92.3 kg Lab Results: Lab Results-Last 24 Hours 06/15/21 06/15/21 06/16/21 Range/Units 15:59 21:19 04:43 WBC 7.4 (4.0-10.5) K/mm3 RBC 4.19 (4.1-5.6) M/mm3 Hgb 11.0 L (12.5-18.0) gm/dl Hct 36.7 L (42-50) % MCV 87.6 (78-100) fl MCH 26.3 (26-32) pg MCHC 30.0 L (32-36) g/dl RDW 15.8 H (11.5-14.0) % Plt Count 219 (150-450) K/mm3 MPV 9.6 (7.5-11.0) fl Gran % 92.6 H (36.0-66.0) % Eos # (Auto) 0 (0-0.5) Absolute Lymphs (auto) 0.28 L (1.0-4.6) Absolute Monos (auto) 0.26 (0.0-1.3) Lymphocytes % 3.8 L (24.0-44.0) % Monocytes % 3.5 (0.0-12.0) % Eosinophils % 0.0 (0.00-5.0) % Basophils % 0.1 (0.0-0.4) % Absolute Granulocytes 6.86 (1.4-6.9) Basophils # 0.01 (0-0.4) Sodium (137-145) mmol/L Potassium (3.5-5.1) mmol/L Chloride (98-107) mmol/L Carbon Dioxide (22-30) mmol/L Anion Gap (5-15) MEQ/L BUN (9-20) mg/dL Creatinine (0.66-1.25) mg/dL Estimated GFR ML/MIN Glucose (74-106) mg/dL POC Glucometer 183 H 169 H (74 to 106) mg/dL Calcium (8.4-10.2) mg/dL Total Bilirubin (0.2-1.3) mg/dL AST (17-59) U/L ALT (0-50) U/L Alkaline Phosphatase (38-126) U/L Serum Total Protein (6.3-8.2) g/dL Albumin (3.5-5.0) g/dL Slides for Path Review YES 06/16/21 06/16/21 06/16/21 Range/Units 04:43 07:26 11:36 WBC (4.0-10.5) K/mm3 RBC (4.1-5.6) M/mm3 Hgb (12.5-18.0) gm/dl Hct (42-50) % MCV (78-100) fl MCH (26-32) pg MCHC (32-36) g/dl RDW (11.5-14.0) % Plt Count (150-450) K/mm3 MPV (7.5-11.0) fl Gran % (36.0-66.0) % Eos # (Auto) (0-0.5) Absolute Lymphs (auto) (1.0-4.6) Absolute Monos (auto) (0.0-1.3) Lymphocytes % (24.0-44.0) % Monocytes % (0.0-12.0) % Eosinophils % (0.00-5.0) % Basophils % (0.0-0.4) % Absolute Granulocytes (1.4-6.9) Basophils # (0-0.4) Sodium 135 L (137-145) mmol/L Potassium 4.5 (3.5-5.1) mmol/L Chloride 96 L (98-107) mmol/L Carbon Dioxide 35 H (22-30) mmol/L Anion Gap 8.0 (5-15) MEQ/L BUN 14 (9-20) mg/dL Creatinine 0.53 L (0.66-1.25) mg/dL Estimated GFR > 60.0 ML/MIN Glucose 141 H (74-106) mg/dL POC Glucometer 116 H 136 H (74 to 106) mg/dL Calcium 8.5 (8.4-10.2) mg/dL Total Bilirubin 0.40 (0.2-1.3) mg/dL AST 19 (17-59) U/L ALT 24 (0-50) U/L Alkaline Phosphatase 35 L (38-126) U/L Serum Total Protein 4.6 L (6.3-8.2) g/dL Albumin 2.6 L (3.5-5.0) g/dL Slides for Path Review Radiology Exams: Radiology Procedures Category Date Time Status CHEST 1 VIEW (PORTABLE) Urgent Exams 06/16/21 09:00 Completed Multi-Disciplinary Progress Notes: Multi-Disciplinary Progress Notes 06/16/21 08:52 Respiratory Note by Madelaine Garcia DONE THIS AM. Initialized on 06/16/21 08:52 - END OF NOTE 06/15/21 13:15 Case Management Note by Gloria Friend NO CHANGE IN DC PLANS AT THIS TIME- WILL CONTINUE TO FOLLOW Initialized on 06/15/21 13:15 - END OF NOTE Assessment/Plan (1) Bilateral pneumonia Current Visit: Yes Status: Acute Assessment & Plan: clinically improving -see CXR sputum ordered Code(s): J18.9 - PNEUMONIA, UNSPECIFIED ORGANISM (2) Acute on chronic respiratory failure with hypoxia Current Visit: Yes Status: Acute Assessment & Plan: improving is tolerating 10L from 15 L oxymizer Code(s): J96.21 - ACUTE AND CHRONIC RESPIRATORY FAILURE WITH HYPOXIA (3) CHF (congestive heart failure) Current Visit: No Status: Chronic Assessment & Plan: low Ejection fraction 16%,is tolerating 1/2 dose spironalactone and Lasix 20mg. Code(s): I50.9 - HEART FAILURE, UNSPECIFIED (4) Hypotension Current Visit: Yes Status: Resolved Code(s): I95.9 - HYPOTENSION, UNSPECIF IED
[2021-06-16] MEDS: ZOCOR 20MG PO SCH (21:23)
[2021-06-16] MEDS: Mirapex 0.5 MG Tablet PO SCH (21:24)
[2021-06-16] MEDS: HUMALOG SQ PRN (21:24)
[2021-06-17] MEDS: PULMICORT 0.5 MG/2 ML RESPULES IH SCH ×2 (05:39→19:00)
[2021-06-17] MEDS: DUONEB 0.5-3 MG/3 ml Neb IH SCH ×3 (05:40→19:00)
[2021-06-17] MEDS: Aldactone 25 MG PO SCH (10:17)
[2021-06-17] MEDS: ECOTRIN 81 MG PO SCH (10:17)
[2021-06-17] MEDS: XANAX 1 MG PO SCH ×2 (10:17→21:56)
[2021-06-17] MEDS: Lopressor 25MG Tab PO SCH ×2 (10:17→21:55)
[2021-06-17] MEDS: solu-MEDROL 60 MG, Sterile H2O 10 ml 2 ML IV SCH ×4 (10:18→21:56)
[2021-06-17] MEDS: ENTRESTO 49 MG-51 MG TABLET PO SCH ×2 (10:18→21:55)
[2021-06-17] MEDS: LASIX 20 MG PO SCH (10:18)
[2021-06-17] MEDS: DELTASONE 5 MG PO SCH (10:18)
[2021-06-17] MEDS: Protonix 40MG Tablet PO SCH ×2 (10:18→21:56)
[2021-06-17] MEDS: THEOPHYLLINE ER 24HR PO SCH ×2 (10:18→21:55)
[2021-06-17] MEDS: ROCEPHIN 1 Gm-D5w 50 ml Bag** 1 G/50 ML IVPB IV SCH (10:19)
[2021-06-17] MEDS: Zithromax 500 MG/ 250 ML NaCl Premix 500 MG/250 ML IVPB IV SCH (10:59)
[2021-06-17] MEDS: Mirapex 0.5 MG Tablet PO SCH (21:55)
[2021-06-17] MEDS: ZOCOR 20MG PO SCH (21:56)
[2021-06-18] MEDS: DUONEB 0.5-3 MG/3 ml Neb IH SCH ×4 (00:55→19:41)
[2021-06-18 06:50] LABS: Hematocrit 38.3 % (42-50); Hemoglobin 11.7 gm/dl (12.5-18.0); Mean Cell Volume 86.1 fl (78-100); Mean Corpuscular Hemoglobin 26.3 pg (26-32); Mean Corpuscular Hgb Concent. 30.5 g/dl (32-36); Mean Platelet Volume 9.8 fl (7.5-11.0); Platelet Count 298 K/mm3 (150-450); Red Blood Count 4.45 M/mm3 (4.1-5.6); White Blood Count 13.1 K/mm3 (4.0-10.5)
[2021-06-18] MEDS: PULMICORT 0.5 MG/2 ML RESPULES IH SCH ×2 (06:50→19:40)
[2021-06-18 07:15] LABS: ALBUMIN 2.9 g/dL (3.5-5.0); ALKALINE PHOSPHATASE 38 U/L (38-126); ANION GAP 7.9 MEQ/L (5-15); BLOOD UREA NITROGEN 16 mg/dL (9-20); CHLORIDE 93 mmol/L (98-107); Calcium 8.5 mg/dL (8.4-10.2); Carbon Dioxide 39 mmol/L (22-30); Creatinine 1 0.72 mg/dL (0.66-1.25); EST GLOMERULAR FILTRATION RATE > 60.0 ML/MIN; Glucose 132 mg/dL (74-106); Potassium 4.4 mmol/L (3.5-5.1); SGOT/AST 20 U/L (17-59); SGPT/ALT 29 U/L (0-50); SODIUM 136 mmol/L (137-145); Total Protein 5.2 g/dL (6.3-8.2)
[2021-06-18 10:48] LABS: BAND 2 % (0.0-2.0); Lymphocytes 11 % (24-44); Monocyte 1 % (0.0-12.0); Neutrophils 86 % (36.-66.); Platelet Estimate NORMAL (NORMAL); Total Cells Counted 100
[2021-06-18] MEDS: ROCEPHIN 1 Gm-D5w 50 ml Bag** 1 G/50 ML IVPB IV SCH (11:25)
[2021-06-18] MEDS: ECOTRIN 81 MG PO SCH (11:26)
[2021-06-18] MEDS: Aldactone 25 MG PO SCH (11:26)
[2021-06-18] MEDS: Lopressor 25MG Tab PO SCH ×2 (11:27→22:19)
[2021-06-18] MEDS: XANAX 1 MG PO SCH ×2 (11:27→22:19)
[2021-06-18] MEDS: LASIX 20 MG PO SCH (11:28)
[2021-06-18] MEDS: DELTASONE 5 MG PO SCH (11:28)
[2021-06-18] MEDS: Protonix 40MG Tablet PO SCH ×2 (11:28→22:20)
[2021-06-18] MEDS: THEOPHYLLINE ER 24HR PO SCH ×2 (11:28→22:21)
[2021-06-18] MEDS: ENTRESTO 49 MG-51 MG TABLET PO SCH ×2 (11:28→22:21)
[2021-06-18] MEDS: solu-MEDROL 60 MG, Sterile H2O 10 ml 2 ML IV SCH ×4 (11:29→22:21)
[2021-06-18] MEDS: Zithromax 500 MG/ 250 ML NaCl Premix 500 MG/250 ML IVPB IV SCH (12:01)
--- NOTE | 2021-06-18 15:55 | PCM.NOTE ---
Date and Time: 06/18/21 1551 Subjective Assessment: Pt is currently on 8L Oximizer. Saundra po. Wears bipap at night. - Review of Systems Constitutional: No Fever Respiratory: Short Of Breath Objective Exam General Appearance: no apparent distress, alert Neurologic Exam: oriented x 3, cooperative Skin Exam: normal color, warm, dry, No rash Eye Exam: eyes nml inspection Ears, Nose, Throat Exam: moist mucous membranes Neck Exam: normal inspection Respiratory Exam: diminished breath sounds (fair air exchange), prolonged expirations, No crackles/rales, No rhonchi, No wheezing Cardiovascular Exam: regular rate/rhythm, normal heart sounds, No murmur Gastrointestinal/Abdomen Exam: soft, No normal bowel sounds (diminished but present), No tenderness, No distention, No mass, No guarding, No rebound Extremity Exam: No pedal edema, No swelling Back Exam: normal inspection, No rash OBJECTIVE DATA Vital Signs: Vital Signs - 24 hr Temp Pulse Resp BP Pulse Ox 06/18/21 12:00 97.5 F 85 22 133/65 93 L 06/18/21 08:00 97.5 F 80 18 150/66 93 L 06/18/21 07:03 87 22 93 L 06/18/21 04:00 97.5 F 79 22 134/73 93 L 06/18/21 00:55 78 23 93 L 06/17/21 23:56 98.8 F 75 24 111/66 96 06/17/21 19:47 98.7 F 108 H 26 H 121/75 95 06/17/21 19:00 98 H 21 93 L 06/17/21 16:00 98.7 F 107 H 18 118/63 94 L Pain Assessment - Last Documented Pain Intensity 0 Intake and Output: Intake & Output 06/16/21 06/17/21 06/18/21 06/19/21 11:59 11:59 11:59 11:59 Intake Total 3228 1460 1080 Output Total 475 1450 1550 Balance 2753 10 -470 Weight 92.3 kg 92 kg Lab Results: Lab Results-Last 24 Hours 06/17/21 06/17/21 06/18/21 Range/Units 15:57 20:37 05:30 WBC 13.1 H (4.0-10.5) K/mm3 RBC 4.45 (4.1-5.6) M/mm3 Hgb 11.7 L (12.5-18.0) gm/dl Hct 38.3 L (42-50) % MCV 86.1 (78-100) fl MCH 26.3 (26-32) pg MCHC 30.5 L (32-36) g/dl RDW 16.0 H (11.5-14.0) % Plt Count 298 (150-450) K/mm3 MPV 9.8 (7.5-11.0) fl Segmented Neutrophils 86 H (36.-66.) % Band Neutrophils 2 (0.0-2.0) % Lymphocytes (Manual) 11 L (24-44) % Monocytes (Manual) 1 (0.0-12.0) % Platelet Estimate NORMAL (NORMAL) RBC Morphology NORMAL Sodium (137-145) mmol/L Potassium (3.5-5.1) mmol/L Chloride (98-107) mmol/L Carbon Dioxide (22-30) mmol/L Anion Gap (5-15) MEQ/L BUN (9-20) mg/dL Creatinine (0.66-1.25) mg/dL Estimated GFR ML/MIN Glucose (74-106) mg/dL POC Glucometer 166 H 140 H (74 to 106) mg/dL Calcium (8.4-10.2) mg/dL Total Bilirubin (0.2-1.3) mg/dL AST (17-59) U/L ALT (0-50) U/L Alkaline Phosphatase (38-126) U/L Serum Total Protein (6.3-8.2) g/dL Albumin (3.5-5.0) g/dL 06/18/21 06/18/21 06/18/21 Range/Units 05:30 07:44 11:52 WBC (4.0-10.5) K/mm3 RBC (4.1-5.6) M/mm3 Hgb (12.5-18.0) gm/dl Hct (42-50) % MCV (78-100) fl MCH (26-32) pg MCHC (32-36) g/dl RDW (11.5-14.0) % Plt Count (150-450) K/mm3 MPV (7.5-11.0) fl Segmented Neutrophils (36.-66.) % Band Neutrophils (0.0-2.0) % Lymphocytes (Manual) (24-44) % Monocytes (Manual) (0.0-12.0) % Platelet Estimate (NORMAL) RBC Morphology Sodium 136 L (137-145) mmol/L Potassium 4.4 (3.5-5.1) mmol/L Chloride 93 L (98-107) mmol/L Carbon Dioxide 39 H (22-30) mmol/L Anion Gap 7.9 (5-15) MEQ/L BUN 16 (9-20) mg/dL Creatinine 0.72 (0.66-1.25) mg/dL Estimated GFR > 60.0 ML/MIN Glucose 132 H (74-106) mg/dL POC Glucometer 114 H 90 (74 to 106) mg/dL Calcium 8.5 (8.4-10.2) mg/dL Total Bilirubin 0.60 (0.2-1.3) mg/dL AST 20 (17-59) U/L ALT 29 (0-50) U/L Alkaline Phosphatase 38 (38-126) U/L Serum Total Protein 5.2 L (6.3-8.2) g/dL Albumin 2.9 L (3.5-5.0) g/dL Multi-Disciplinary Progress Notes: Multi-Disciplinary Progress Notes 06/18/21 08:50 Respiratory Note by Madelaine Garcia DONE AT THIS TIME. Initialized on 06/18/21 08:50 - END OF NOTE Assessment/Plan (1) Acute on chronic respiratory failure with hypoxia Current Visit: Yes Status: Acute Assessment & Plan: He is being treated with rocephin and zithromax; this is day #6 so stopping zithromax today. His O2 requirement is decreasing (was on 15L at one point) but still well above his baseline of 4L NC. When at baseline can discharge to home. Code(s): J96.21 - ACUTE AND CHRONIC RESPIRATORY FAILURE WITH HYPOXIA (2) Bilateral pneumonia Current Visit: Yes Status: Acute Qualifiers: Pneumonia type: due to unspecified organism Lung location: unspecified part of lung Qualified Code(s): J18.9 - Pneumonia, unspecified organism Code(s): J18.9 - PNEUMONIA, UNSPECIFIED ORGANISM (3) CHF (congestive heart failure) Current Visit: No Status: Chronic Code(s): I50.9 - HEART FAILURE, UNSPECIFIED (4) Diabetes Current Visit: No Status: Chronic Qualifiers: Diabetes mellitus type: type 2 Diabetes mellitus watermaster insulin use: without watermaster use Diabetes mellitus complication status: with hypergly cemia Qualified Code(s): E11.65 - Type 2 diabetes mellitus with hyperglycemia Code(s): E11.9 - TYPE 2 DIABETES MELLITUS WITHOUT COMPLICATIONS (5) HTN (hypertension) Current Visit: No Status: Chronic Qualifiers: Hypertension type: primary hypertension Qualified Code(s): I10 - Essential (primary) hypertension Code(s): I10 - ESSENTIAL (PRIMARY) HYPERTENSION
[2021-06-18] MEDS: ZOCOR 20MG PO SCH (22:18)
[2021-06-18] MEDS: Mirapex 0.5 MG Tablet PO SCH (22:19)
[2021-06-19] MEDS: DUONEB 0.5-3 MG/3 ml Neb IH SCH ×4 (00:51→19:00)
[2021-06-19] MEDS: PULMICORT 0.5 MG/2 ML RESPULES IH SCH ×2 (05:33→19:00)
[2021-06-19] MEDS: Lopressor 25MG Tab PO SCH ×2 (10:12→22:34)
[2021-06-19] MEDS: XANAX 1 MG PO SCH ×2 (10:12→22:32)
[2021-06-19] MEDS: Aldactone 25 MG PO SCH (10:13)
[2021-06-19] MEDS: Protonix 40MG Tablet PO SCH ×2 (10:13→22:39)
[2021-06-19] MEDS: ECOTRIN 81 MG PO SCH (10:13)
[2021-06-19] MEDS: LASIX 20 MG PO SCH (10:13)
[2021-06-19] MEDS: ENTRESTO 49 MG-51 MG TABLET PO SCH ×2 (10:13→22:32)
[2021-06-19] MEDS: THEOPHYLLINE ER 24HR PO SCH ×2 (10:14→22:33)
[2021-06-19] MEDS: DELTASONE 5 MG PO SCH (14:12)
[2021-06-19] MEDS: solu-MEDROL 60 MG, Sterile H2O 10 ml 2 ML IV SCH ×4 (14:12→14:22)
--- NOTE | 2021-06-19 15:55 | PCM.NOTE ---
Date and Time: 06/19/21 1551 Subjective Assessment: Pt now on 5L oximizer and O2 sats are stable; started out on 8L this morning. He is don po well. States he has a lot to do before the holiday and he can't do it while he's here (hospital). - Review of Systems Constitutional: No Fever Respiratory: Cough, Short Of Breath Objective Exam General Appearance: no apparent distress, obese Neurologic Exam: alert, oriented x 3, cooperative Skin Exam: normal color, warm, dry, No rash Eye Exam: eyes nml inspection Ears, Nose, Throat Exam: moist mucous membranes Neck Exam: normal inspection Respiratory Exam: diminished breath sounds (fair air exchange), prolonged expirations, other (pt receiving nebulizer tx), No crackles/rales, No rhonchi, No wheezing Cardiovascular Exam: regular rate/rhythm, normal heart sounds, No murmur Gastrointestinal/Abdomen Exam: soft, normal bowel sounds, No tenderness, No distention, No mass, No guarding, No rebound Extremity Exam: No pedal edema, No swelling Back Exam: other (scar mid back, approx 5x5cm and roughly annular) OBJECTIVE DATA Vital Signs: Vital Signs - 24 hr Temp Pulse Resp BP Pulse Ox 06/19/21 13:59 100 H 22 93 L 06/19/21 11:46 98.9 F 96 H 30 H 108/66 86 L 06/19/21 07:48 98.2 F 85 28 H 134/63 91 L 06/19/21 05:36 75 21 93 L 06/19/21 03:46 98.5 F 78 22 121/71 90 L 06/19/21 00:51 89 19 93 L 06/18/21 23:23 97.8 F 84 23 111/61 92 L 06/18/21 19:47 92 H 24 94 L 06/18/21 19:37 98.4 F 97 H 23 151/72 92 L 06/18/21 16:00 98.4 F 93 H 18 129/92 90 L Pain Assessment - Last Documented Pain Intensity 0 Intake and Output: Intake & Output 06/17/21 06/18/21 06/19/21 06/20/21 11:59 11:59 11:59 11:59 Intake Total 1460 1080 1442 300 Output Total 1450 1550 1575 1000 Balance 67 -594 -265 -700 Weight 92 kg 90.6 kg Lab Results: Lab Results-Last 24 Hours 06/18/21 06/18/21 06/19/21 Range/Units 17:04 20:55 07:02 POC Glucometer 148 H 139 H 139 H (74 to 106) mg/dL Theophylline (10-20) ug/mL 06/19/21 06/19/21 Range/Units 10:25 11:33 POC Glucometer 134 H (74 to 106) mg/dL Theophylline 6.1 L (10-20) ug/mL Radiology Exams: Radiology Procedures Category Date Time Status CHEST 2 VIEWS (PA AND LAT) Stat Exams 06/19/21 09:39 Taken Multi-Disciplinary Progress Notes: Multi-Disciplinary Progress Notes 06/19/21 06:26 Respiratory Note by Migdlaia Grissom I TALKED TO THE PT ABOUT TRYING TO WEAR HIS BIPAP FOR LONGER PERIODS OF TIME AT NIGHT. HE HAS ONLY BEEN WANTING TO WEAR IT FOR AN HOUR, AND WITHOUT IT, HIS SPO2 WHILE SLEEPING IS AROUND 81%. I ENCOURAGED HIM TO HAVE HIS FAMILY BRING HIS HOME TRILOGY IN FOR HIM TO USE AT NIGHT, BUT HE IS VERY ADAMANT THAT HE DOES NOT WANT THAT. THE WAY THE PT DESCRIBES HIS HOME TRILOGY IS THAT IT "HAS TOO MANY PIECES AND IS WAY TO EXPENSIVE". HE QUESTIONED ME WHY HE JUST COULDN'T GO HOME AND WANTED TO KNOW HOW MUCH LONGER HE HAS TO STAY. I TOLD HIM THAT HIS OXYGEN DEMANDS WERE STILL TOO HIGH AND THAT WE WOULD TRY TO GET HIS OXYGEN WEANED DOWN, BUT IN THE MEANTIME, HE NEEDED TO TRY TO WEAR THE BIPAP WHILE HE IS ASLEEP. I'M HOPING THAT HE WILL WEAR IT FOR A LONGER TIME TONIGHT. Initialized on 06/19/21 06:26 - END OF NOTE Assessment/Plan (1) Acute on chronic respiratory failure with hypoxia Current Visit: Yes Status: Acute Assessment & Plan: improved. Tried to encourage the pt about his progress. I did see the repeat CXR; showed some signs of possible pulmonary edema, so I have changed his 20mg po lasix daily to 40mg IV daily. Code(s): J96.21 - ACUTE AND CHRONIC RESPIRATORY FAILURE WITH HYPOXIA (2) Bilateral pneumonia Current Visit: Yes Status: Acute Qualifiers: Pneumonia type: due to unspecified organism Lung location: unspecified part of lung Qualified Code(s): J18.9 - Pneumonia, unspecified organism Assessment & Plan: Stopped zithromax after 5d. On IV rocephin. Code(s): J18.9 - PNEUMONIA, UNSPECIFIED ORGANISM (3) CHF (congestive heart failure) Current Visit: No Status: Chronic Code(s): I50.9 - HEART FAILURE, UNSPECIFIED (4) Diabetes Current Visit: No Status: Chronic Qualifiers: Diabetes mellitus type: type 2 Diabetes mellitus care home insulin use: without care home use Diabetes mellitus complication status: with hyperglycemia Qualified Code(s): E11.65 - Type 2 diabetes mellitus with hyperglycemia Code(s): E11.9 - TYPE 2 DIABETES MELLITUS WITHOUT COMPLICATIONS (5) HTN (hypertension) Current Visit: No Status: Chronic Qualifiers: Hypertension type: primary hypertension Qualified Code(s): I10 - Essential (primary) hypertension Code(s): I10 - ESSENTIAL (PRIMARY) HYPERTENSION
--- NOTE | 2021-06-19 18:47 | XRAY ---
Indication: Pneumonia. Comparison: June 16, 2021. PA/lateral chest again demonstrates bibasilar airspace disease, mildly improved. Stable COPD, scattered fibrosis/scarring, and left upper lung suture material. Heart not enlarged. No new cardiopulmonary abnormalities. Comment: Preliminary interpretation made by [facility]. No critical discrepancy.
[2021-06-19] MEDS: ZOCOR 20MG PO SCH (22:31)
[2021-06-19] MEDS: Mirapex 0.5 MG Tablet PO SCH (22:33)
[2021-06-20] MEDS: solu-MEDROL 60 MG, Sterile H2O 10 ml 2 ML IV SCH ×4 (00:21→09:19)
[2021-06-20] MEDS: DUONEB 0.5-3 MG/3 ml Neb IH SCH ×3 (01:10→12:56)
[2021-06-20] MEDS: PULMICORT 0.5 MG/2 ML RESPULES IH SCH (05:40)
[2021-06-20] MEDS: Aldactone 25 MG PO SCH (09:14)
[2021-06-20] MEDS: ECOTRIN 81 MG PO SCH (09:14)
[2021-06-20] MEDS: ENTRESTO 49 MG-51 MG TABLET PO SCH (09:15)
[2021-06-20] MEDS: Lopressor 25MG Tab PO SCH (09:17)
[2021-06-20] MEDS: XANAX 1 MG PO SCH (09:18)
[2021-06-20] MEDS: Protonix 40MG Tablet PO SCH (09:18)
[2021-06-20] MEDS: THEOPHYLLINE ER 24HR PO SCH (09:19)
[2021-06-20] MEDS ORDERED: Lasix 40 MG/4 ML IV SCH (10:00)
--- NOTE | 2021-06-20 13:41 | PCM.DCORD ---
- Discharge Disposition: Home, Self-Care Condition: Good Prescriptions: Continue Omeprazole 20 MG [Prilosec 20 mg] 20 mg PO BIDAC Albuterol 2.5 mg/3 ml Neb [Proventil 2.5 mg/3 ml Neb] 1 neb IH Q6H PRN PRN Reason: sob Aspirin 81 mg PO DAILY Nitroglycerin 0.4 mg Tablet [Nitrostat 0.4 MG Tablet] 0.4 mg SL Q5MIN PRN MR X 3 PRN PRN Reason: Chest Pain ALPRAZolam 1 MG [Xanax 1 mg] 1 mg PO BID Theophylline Anhydrous 300 mg PO BID Albuterol Common Canister [Ventolin Common Canister] 2 puff IH Q6HPRN PRN PRN Reason: Shortness Of Breath/Wheezing Isosorbide Mononitrate 60 mg [Imdur 60MG] 60 mg PO DAILY Metoprolol Tartrate 25 mg [Lopressor 25MG Tab] 25 mg PO BID Polyvinyl Alcohol Tears [Artificial Tears 15 ML] 1 drop OP Q4H PRN PRN PRN Reason: dry eyes Rosuvastatin Calcium 20 mg PO HS Spironolactone 25 mg [Aldactone 25 MG] 12.5 mg PO DAILY Budesonide/Glycopyr/Formoterol [Breztri Aerosphere Inhaler] 2 puffs IH BID Albuterol Sulfate [Proair Digihaler] 2 puffs IH Q6H PRN PRN Reason: sob Pramipexole Di-HCl [Mirapex] 0.25 mg PO DAILY Sacubitril/Valsartan [Entresto 97 mg-103 mg Tablet] 1 each PO DAILY Furosemide 20 mg [Lasix 20 mg] 20 mg PO DAILY Amlodipine Besylate 2.5 mg PO DAILY Changed Prednisone 5 mg [Deltasone 5 mg] 10 mg PO DAILY #60 Additional Instructions: ORDER FOR ROLLATOR WAS SENT TO [facility]. THEY WILL DELIVER THIS TO YOUR HOME. THEIR PHONE NUMBER IS [phone] Follow up with: DAV SEALS DO [Primary Care Provider] -
--- NOTE | 2021-06-20 13:53 | PCM.DS ---
Discharge Summary Date of Admission: 06/12/21 21:00 Date of Discharge: 06/20/2021 Admitting Physician: CHENTE GASTON Primary Care Provider: DAV SEALS DO Allergies Allergies nicotine [From [facility]] Allergy (Severe, Verified 06/12/21 13:38) [facility] Summary - Hospital Course Hospital Course: Patient is a 75 yo gentleman with COPD oxygen dependent 4-6L and CHF with ejection fraction of 16% per JANUARY ECHO. He follows with Shooter Helper Dr Moreno and Service Electrician Dr Jc. He was admitted through ER with Dg bibasilar pneumonia. Patient was hypotensive with B/P 80/55 on adm. - Vitals & Intake/Output Vital Signs: Vital Signs Temperature 98.6 F 06/20/21 11:58 Pulse Rate 81 06/20/21 13:01 Respiratory Rate 20 06/20/21 13:01 Blood Pressure 117/71 06/20/21 11:58 O2 Sat by Pulse Oximetry 87 L 06/20/21 13:01 Intake & Output: Intake & Output 06/18/21 06/19/21 06/20/21 06/21/21 11:59 11:59 11:59 11:59 Intake Total 1080 1442 860 380 Output Total 1550 1575 1450 850 Balance -470 -133 -590 -470 Weight 90.6 kg - Lab Result Diagrams: 06/18/21 05:30 06/18/21 05:30 Lab Results-Last 24 Hrs: Lab Results-Last 24 Hours 06/19/21 06/19/21 06/20/21 Range/Units 15:52 20:38 07:22 POC Glucometer 93 148 H 119 H (74 to 106) mg/dL 06/20/21 Range/Units 11:47 POC Glucometer 119 H (74 to 106) mg/dL Micro Results-Entire Visit: Microbiology 06/16/21 10:34 Gram Stain - Final Sputum - Expectorant Sputum Culture - Final ORGANISMS ISOLATED ARE CONSISTENT WITH NORMAL RESP NESTOR MODERATE GROWTH, NO PREDOMINANT ORGANISM 06/12/21 13:52 Blood Culture Gram Stain - Final Blood Not Reportable Blood Culture - Final NO GROWTH 06/12/21 14:00 Blood Culture Gram Stain - Final Blood Not Reportable Blood Culture - Final NO GROWTH Accuchecks Date 06/20/21 Date 11/21/21 Time 11:58 - Radiology Exams Ordered Rad Exams-Entire Visit: Radiology Procedures Category Date Time Status CHEST 2 VIEWS (PA AND LAT) Stat Exams 06/19/21 09:39 Completed - Procedures and Test Procedures and Tests throughout Hospitalization: Therapy Orders & Screens 06/12/21 13:51 Respiratory Therapy Assessment DAILY Comment: 06/12/21 19:46 Oxygen Nasal Cannula 6 lpm Comment: 06/12/21 21:30 Flutter Therapy UD Comment: Diagnosis: Pnuemonia 06/14/21 14:06 BiPap/CPAP ROUTINE Comment: Diagnosis: BILATERAL PNEUMONIA, RESPIRATORY FAILURE 06/16/21 08:51 PT Eval & Treat ( Order) ONCE Reason for Eval:: weakness Diagnosis: BILATERAL PNEUMONIA, RESPIRATORY FAILURE Final Diagnosis/Problem List - Final Discharge Diagnosis/Problem (1) Bilateral pneumonia Current Visit: Yes Status: Acute Code(s): J18.9 - PNEUMONIA, UNSPECIFIED ORGANISM (2) Acute on chronic respiratory failure with hypoxia Current Visit: Yes Status: Acute Code(s): J96.21 - ACUTE AND CHRONIC RESPIRATORY FAILURE WITH HYPOXIA (3) CHF (congestive heart failure) Current Visit: No Status: Chronic Code(s): I50.9 - HEART FAILURE, UNSPECIFIED (4) Hypotension Current Visit: Yes Status: Resolved Code(s): I95.9 - HYPOTENSION, UNSPECIFIED - Discharge Disposition: Home, Self-Care Condition: Good Prescriptions: Continue Omeprazole 20 MG [Prilosec 20 mg] 20 mg PO BIDAC Albuterol 2.5 mg/3 ml Neb [Proventil 2.5 mg/3 ml Neb] 1 neb IH Q6H PRN PRN Reason: sob Aspirin 81 mg PO DAILY Nitroglycerin 0.4 mg Tablet [Nitrostat 0.4 MG Tablet] 0.4 mg SL Q5MIN PRN MR X 3 PRN PRN Reason: Chest Pain ALPRAZolam 1 MG [Xanax 1 mg] 1 mg PO BID Theophylline Anhydrous 300 mg PO BID Albuterol Common Canister [Ventolin Common Canister] 2 puff IH Q6HPRN PRN PRN Reason: Shortness Of Breath/Wheezing Isosorbide Mononitrate 60 mg [Imdur 60MG] 60 mg PO DAILY Metoprolol Tartrate 25 mg [Lopressor 25MG Tab] 25 mg PO BID Polyvinyl Alcohol Tears [Artificial Tears 15 ML] 1 drop OP Q4H PRN PRN PRN Reason: dry eyes Rosuvastatin Calcium 20 mg PO HS Spironolactone 25 mg [Aldactone 25 MG] 12.5 mg PO DAILY Budesonide/Glycopyr/Formoterol [Breztri Aerosphere Inhaler] 2 puffs IH BID Albuterol Sulfate [Proair Digihaler] 2 puffs IH Q6H PRN PRN Reason: sob Pramipexole Di-HCl [Mirapex] 0.25 mg PO DAILY Sacubitril/Valsartan [Entresto 97 mg-103 mg Tablet] 1 each PO DAILY Furosemide 20 mg [Lasix 20 mg] 20 mg PO DAILY Amlodipine Besylate 2.5 mg PO DAILY Changed Prednisone 5 mg [Deltasone 5 mg] 10 mg PO DAILY #60 Additional Instructions: ORDER FOR ROLLATOR WAS SENT TO [facility]. THEY WILL DELIVER THIS TO YOUR HOME. THEIR PHONE NUMBER IS [phone] Follow up with: DAV SEALS DO [Primary Care Provider] -
[2021-06-20 16:38] VITALS: BP 127/80; PULSE 98; O2SAT 91
== END 2021-06-20 17:35 | disposition home or self-care (01) | DRG 193 ==
LOC: ED 13:20 → OBSVTOIN 19:42 → INTOOBSV 19:42 → UNDOADMOB 19:42 → MED SURG 19:42 → OBSVTOIN 21:00 → MED SURG 21:00
PROVIDERS: ADMIT Family Medicine; ATTEND Family Medicine
DX: J18.9 Pneumonia, unspecified organism (principal); J96.21 Acute and chronic respiratory failure with hypoxia; J44.1 Chronic obstructive pulmonary disease with (acute) exacerbation; R00.0 Tachycardia, unspecified; E78.5 Hyperlipidemia, unspecified; I11.0 Hypertensive heart disease with heart failure; I50.9 Heart failure, unspecified; I95.9 Hypotension, unspecified; E11.9 Type 2 diabetes mellitus without complications; Z99.81 Dependence on supplemental oxygen; Z79.899 Other long term (current) drug therapy; Z87.891 Personal history of nicotine dependence; Z20.828 Contact with and (suspected) exposure to other viral communicable diseases
CPT/HCPCS: 36000; 36415; 36600; 71045; 71046; 71260; 80053; 80198; 81001; 82375; 82803; 82947; 83605; 83735; 83880; 84484; 85025; 85379; 87040; 87070; 93005; 93041; 93268; 94002; 94003; 94640; 94667; 94762; 96365; 96367; 97530; 99285; 99291; U0003; J0456; J0696; J1817; J1940; J2930; J7609; A9270-GY

== ENCOUNTER 2021-07-12 11:55 | Observation (INO) | payer MEDICARE ==
[2021-07-12] MEDS ORDERED: DUONEB 0.5-3 MG/3 ml Neb IH ONE ×2 (12:04→12:05)
[2021-07-12] MEDS ORDERED: solu-MEDROL 125 MG, Sterile H2O 10 ml 2 ML IV ONE ×2 (12:05)
[2021-07-12] MEDS ORDERED: BABY ASPIRIN 81 MG CHEW PO ONE (12:06)
--- NOTE | 2021-07-12 12:11 | ERPHSYRPT ---
- History of Present Illness Time Seen by Provider: 07/12/21 11:59 Source: patient Exam Limitations: no limitations Patient Subjective Stated Complaint: pt here for increase sob x 1 week had pnuemonia last month, Triage Nursing Assessment: pt alert, arrived per wc, resp labored at rest, has congested sounding cough, dimonished bs Physician History: 75 years old male with history of chronic respiratory failure secondary to COPD on oxygen, congestive heart failure, hypertension presented in the ER with chief complaint of worsening shortness of breath for almost 1 week despite using oxygen and breathing treatments. Patient reports having chest tightness, increased wheezing and cough productive of moderate amount of clear to yellow sputum more than usual. Feeling weak fatigued and tired. Patient is tachypneic with loud wheezing on presentation despite being on oxygen. Timing/Duration: week(s) (1), gradual onset, worse Activities at Onset: activity, rest Severity of Dyspnea-Max: moderate Severity of Dyspnea-Current: moderate Possible Cause: illness exposure Modifying Factors: Improves With: oxygen, rest. Worsens With: activity, coughing, exertion Associated Symptoms: cough, chest pain/discomfort, wheezing, productive cough, tightness Allergies/Adverse Reactions: nicotine [From [facility]] Allergy (Severe, Verified 07/12/21 12:07) Rash Home Medications: Albuterol 2.5 mg/3 ml Neb [Proventil 2.5 mg/3 ml Neb] 1 neb IH Q6H PRN 02/04/14 [History] Aspirin 81 mg PO DAILY 02/04/14 [History] Omeprazole 20 MG [Prilosec 20 mg] 20 mg PO BIDAC 02/04/14 [History] Nitroglycerin 0.4 mg Tablet [Nitrostat 0.4 MG Tablet] 0.4 mg SL Q5MIN PRN MR X 3 PRN 08/01/16 [History] ALPRAZolam 1 MG [Xanax 1 mg] 1 mg PO BID 10/14/18 [History] Theophylline Anhydrous 300 mg PO BID 10/14/18 [History] Albuterol Common Canister [Ventolin Common Canister] 2 puff IH Q6HPRN PRN 06/01/20 [History] Isosorbide Mononitrate 60 mg [Imdur 60MG] 60 mg PO DAILY 06/01/20 [History] Metoprolol Tartrate 25 mg [Lopressor 25MG Tab] 25 mg PO BID 06/01/20 [History] Polyvinyl Alcohol Tears [Artificial Tears 15 ML] 1 drop OP Q4H PRN PRN 06/01/20 [History] Rosuvastatin Calcium 20 mg PO HS 06/01/20 [History] Spironolactone 25 mg [Aldactone 25 MG] 12.5 mg PO DAILY 01/25/21 [History] Albuterol Sulfate [Proair Digihaler] 2 puffs IH Q6H PRN 03/24/21 [History] Budesonide/Glycopyr/Formoterol [Breztri Aerosphere Inhaler] 2 puffs IH BID 03/24/21 [History] Amlodipine Besylate 2.5 mg PO DAILY 06/12/21 [History] Furosemide 20 mg [Lasix 20 mg] 20 mg PO DAILY 06/12/21 [History] Pramipexole Di-HCl [Mirapex] 0.25 mg PO DAILY 06/12/21 [History] Sacubitril/Valsartan [Entresto 97 mg-103 mg Tablet] 1 each PO DAILY 06/12/21 [History] Hx Tetanus, Diphtheria Vaccination/Date Given: No Hx Influenza Vaccination/Date Given: Yes Hx Pneumococcal Vaccination/Date Given: Yes Immunizations Up to Date: Yes Travel Risk - International Travel Have you traveled outside of the country in past 3 weeks: No - Coronavirus Screening Are you exhibiting any of the following symptoms?: Yes Symptoms: Shortness of Breath Close contact with a COVID-19 positive Pt in past 14-21 Days: No - Vaccine Status Have you recieved a Covid-19 vaccination: No - Review of Systems Constitutional: Fatigue, Weakness Eyes: No Symptoms Ears, Nose, & Throat: No Symptoms Respiratory: Cough, Dyspnea, Dyspnea on Exertion (GUERRA), Wheezing Cardiac: No Symptoms Abdominal/Gastrointestinal: No Symptoms Genitourinary Symptoms: No Symptoms Musculoskeletal: Myalgias Skin: No Symptoms Neurological: No Symptoms Psychological: No Symptoms Endocrine: No Symptoms Hematologic/Lymphatic: No Symptoms Immunological/Allergic: No Symptoms - Past Medical History Pertinent Past Medical History: Yes Neurological History: No Pertinent History ENT History: No Pertinent History Cardiac History: Aneurysm, Hypertension Respiratory History: COPD, Sleep Apnea Endocrine Medical History: Diabetes Type II Musculoskeletal History: No Pertinent History GI Medical History: No Pertinent History, GERD History: No Pertinent History Psycho-Social History: Anxiety Male Reproductive Disorders: No Pertinent History Other Medical History: 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 Pt also states he had an increase of SOB and chest pain that he has seen Dr. Mallory for and he has been put on nitro. PT wears 4L O2 AT ALL TIMES - Past Surgical History Past Surgical History: Yes Neuro Surgical History: No Pertinent History Cardiac: No Pertinent History Respiratory: Other Gastrointestinal: Hernia Repair Genitourinary: No Pertinent History Musculoskeletal: Orthopedic Surgery Male Surgical History: Vasectomy Other Surgical History: BACK SURGERY, and ear surgery and a left lung biopsy. 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, double hernia repair, - Social History Smoking Status: Former smoker How long have you smoked: 13 Exposure to second hand smoke: No Drug Use: none Patient Lives Alone: No - Nursing Vital Signs Nursing Vital Signs: Initial Vital Signs Pulse Rate 106 H 07/12/21 11:57 Respiratory Rate 36 H 07/12/21 11:57 Blood Pressure 136/78 07/12/21 11:57 O2 Sat by Pulse Oximetry 92 L 07/12/21 11:57 Pain Scale Pain Intensity 0 - Physical Exam General Appearance: no apparent distress, alert Eye Exam: PERRL/EOMI, eyes nml inspection Ears, Nose, Throat Exam: hearing grossly normal, pharyngeal erythema Neck Exam: normal inspection, supple, full range of motion Respiratory Exam: respiratory distress, diminished breath sounds, accessory muscle use, rhonchi, wheezing Cardiovascular/Chest Exam: normal heart sounds, tachycardia Abdominal/Gastrointestinal Exam: soft, normal bowel sounds, No tenderness Extremity Exam: non-tender, normal range of motion Neurologic Exam: alert, oriented x 3, cooperative, care program resident II-XII nml as tested Skin Exam: normal color SpO2 Interpretation: normal, O2 applied SpO2: 92 O2 Delivery: Nasal Cannula - Course EKG Interpreted by Me: RATE (92), Sinus Rhythm, Right Sunshine Deviation, Right Bundle Branch Block, Non-specific ST Changes Ordered Tests: Active Orders 24 hr Category Date Time Status Oracle Drm Consultant STAT Care 07/12/21 12:06 Active EKG-ER Only STAT Care 07/12/21 12:05 Active IV Insertion STAT Care 07/12/21 12:05 Active Oxygen-ED Only Nasal Cannula 4 lpm Care 07/12/21 12:05 Active CHEST 1 VIEW (PORTABLE) Stat Exams 07/12/21 12:06 Completed BLOOD CULTURE Stat Lab 07/12/21 12:41 Received CBC W DIFF Stat Lab 07/12/21 12:16 Completed CMP Stat Lab 07/12/21 12:16 Completed Lactic Acid Stat Lab 07/12/21 12:12 Completed MAGNESIUM Stat Lab 07/12/21 12:16 Completed NT PRO BNP Stat Lab 07/12/21 12:16 Completed TROPONIN Q3H Lab 07/12/21 12:16 Completed TROPONIN Q3H Lab 07/12/21 15:18 Completed TROPONIN Q3H Lab 07/12/21 18:15 Ordered TROPONIN Q3H Lab 07/12/21 21:15 Ordered TROPONIN Q3H Lab 07/13/21 00:15 Ordered UA W/RFX UR CULTURE Stat Lab 07/12/21 14:46 Received Respiratory Therapy Assessment DAILY RT 07/12/21 12:09 Active Transfer Order Routine Transfer 07/12/21 Ordered Medication Summary Discontinued Medications Generic Name Dose Route Start Last Admin Trade Name Freq PRN Reason Stop Dose Admin Albuterol/Ipratropium Confirm 07/12/21 12:04 Ipratropium/Albuterol Sulfate 3 Ml Ampul.Neb Administered 07/12/21 12:05 Dose 3 ml IH .STK-MED ONE Albuterol/Ipratropium 3 ml 07/12/21 12:05 07/12/21 12:06 Ipratropium/Albuterol Sulfate 3 Ml Ampul.Neb IH 07/12/21 12:06 3 ml STAT ONE Administration Aspirin 324 mg 07/12/21 12:06 07/12/21 12:17 Aspirin 81 Mg Tab.Chew PO 07/12/21 12:07 324 mg STAT ONE Administration Aspirin Confirm 07/12/21 12:16 Aspirin 81 Mg Tab.Chew Administered 07/12/21 12:17 Dose 324 mg .ROUTE .STK-MED ONE Methylprednisolone Sodium 0 mg 07/12/21 12:05 07/12/21 12:17 Succinate 125 mg/ Sterile IV 07/12/21 12:06 125 mg Water 2 ml STAT ONE Administration Azithromycin 500 mg in 250 mls @ 250 mls/hr 07/12/21 12:33 07/12/21 15:18 Zithromax 500 Mg/ 250 Ml Nacl Premix IV 07/12/21 13:32 Infused STAT STA Infusion Ceftriaxone Sodium/Dextrose 2 g in 50 mls @ 100 mls/hr 07/12/21 12:33 07/12/21 13:50 Rocephin 2 Gm-D5w 50ml Bag IV 07/12/21 13:02 Infused STAT STA Infusion Ceftriaxone Sodium/Dextrose Confirm 07/12/21 12:48 Rocephin 1 Gm-D5w 50 Ml Bag Administered 07/12/21 12:49 Dose 1 g in 50 mls @ ud IV .STK-MED ONE Ceftriaxone Sodium/Dextrose Confirm 07/12/21 12:50 Rocephin 2 Gm-D5w 50ml Bag Administered 07/12/21 12:51 Dose 2 g in 50 mls @ ud IV .STK-MED ONE Azithromycin Confirm 07/12/21 14:12 Zithromax 500 Mg/ 250 Ml Nacl Premix Administered 07/12/21 14:13 Dose 500 mg in 250 mls @ ud IV .STK-MED ONE Azithromycin Confirm 07/12/21 14:15 Zithromax 500 Mg/ 250 Ml Nacl Premix Administered 07/12/21 14:16 Dose 500 mg in 250 mls @ ud IV .STK-MED ONE Methylprednisolone Sodium Succinate Confirm 07/12/21 12:16 Methylprednis Sod Succ 125 Mg/2 Ml Vial Administered 07/12/21 12:17 Dose 125 mg .ROUTE .STK-MED ONE Sterile Water Confirm 07/12/21 12:16 Water For Injection,Sterile 10 Ml Vial Administered 07/12/21 12:17 Dose 10 ml IJ .STK-MED ONE Lab/Rad Data: Laboratory Result Diagrams 07/12/21 12:16 07/12/21 12:16 Laboratory Results 07/12/21 07/12/21 07/12/21 Range/Units 15:18 14:24 12:16 WBC (4.0-10.5) K/mm3 RBC (4.1-5.6) M/mm3 Hgb (12.5-18.0) gm/dl Hct (42-50) % MCV (78-100) fl MCH (26-32) pg MCHC (32-36) g/dl RDW (11.5-14.0) % Plt Count (150-450) K/mm3 MPV (7.5-11.0) fl Gran % (36.0-66.0) % Eos # (Auto) (0-0.5) Absolute Lymphs (auto) (1.0-4.6) Absolute Monos (auto) (0.0-1.3) Lymphocytes % (24.0-44.0) % Monocytes % (0.0-12.0) % Eosinophils % (0.00-5.0) % Basophils % (0.0-0.4) % Absolute Granulocytes (1.4-6.9) Basophils # (0-0.4) Sodium (137-145) mmol/L Potassium (3.5-5.1) mmol/L Chloride (98-107) mmol/L Carbon Dioxide (22-30) mmol/L Anion Gap (5-15) MEQ/L BUN (9-20) mg/dL Creatinine (0.66-1.25) mg/dL Estimated GFR ML/MIN Glucose (74-106) mg/dL Lactic Acid (0.4-2.0) Calcium (8.4-10.2) mg/dL Magnesium (1.6-2.3) mg/dL Total Bilirubin (0.2-1.3) mg/dL AST (17-59) U/L ALT (0-50) U/L Alkaline Phosphatase (38-126) U/L Troponin I < 0.012 < 0.012 (0.000-0.034) ng/mL NT-Pro-B Natriuret Pep (0-900) pg/mL Serum Total Protein (6.3-8.2) g/dL Albumin (3.5-5.0) g/dL Influenza Type A Ag NEGATIVE (NEGATIVE) Influenza Type B Ag NEGATIVE (NEGATIVE) RSV (PCR) NEGATIVE (Negative) SARS-CoV-2 (PCR) NEGATIVE (NEGATIVE) 07/12/21 07/12/21 07/12/21 Range/Units 12:16 12:16 12:12 WBC 8.8 (4.0-10.5) K/mm3 RBC 5.04 (4.1-5.6) M/mm3 Hgb 13.2 (12.5-18.0) gm/dl Hct 43.4 (42-50) % MCV 86.1 (78-100) fl MCH 26.2 (26-32) pg MCHC 30.4 L (32-36) g/dl RDW 16.6 H (11.5-14.0) % Plt Count 338 (150-450) K/mm3 MPV 9.6 (7.5-11.0) fl Gran % 86.7 H (36.0-66.0) % Eos # (Auto) 0.02 (0-0.5) Absolute Lymphs (auto) 0.68 L (1.0-4.6) Absolute Monos (auto) 0.46 (0.0-1.3) Lymphocytes % 7.7 L (24.0-44.0) % Monocytes % 5.2 (0.0-12.0) % Eosinophils % 0.2 (0.00-5.0) % Basophils % 0.2 (0.0-0.4) % Absolute Granulocytes 7.62 H (1.4-6.9) Basophils # 0.02 (0-0.4) Sodium 131 L (137-145) mmol/L Potassium 4.5 (3.5-5.1) mmol/L Chloride 93 L (98-107) mmol/L Carbon Dioxide 34 H (22-30) mmol/L Anion Gap 8.9 (5-15) MEQ/L BUN 11 (9-20) mg/dL Creatinine 0.70 (0.66-1.25) mg/dL Estimated GFR > 60.0 ML/MIN Glucose 155 H (74-106) mg/dL Lactic Acid 1.6 (0.4-2.0) Calcium 9.2 (8.4-10.2) mg/dL Magnesium 2.0 (1.6-2.3) mg/dL Total Bilirubin 0.90 (0.2-1.3) mg/dL AST 22 (17-59) U/L ALT 22 (0-50) U/L Alkaline Phosphatase 48 (38-126) U/L Troponin I (0.000-0.034) ng/mL NT-Pro-B Natriuret Pep 379 (0-900) pg/mL Serum Total Protein 7.1 (6.3-8.2) g/dL Albumin 4.1 (3.5-5.0) g/dL Influenza Type A Ag (NEGATIVE) Influenza Type B Ag (NEGATIVE) RSV (PCR) (Negative) SARS-CoV-2 (PCR) (NEGATIVE) - Progress Progress: improved Air Movement: fair Progress Note: 07/12/21 14:12 75 years old is evaluated for worsening shortness of breath despite being on oxygen. Patient was then somewhat distress on presentation, given breathing treatment and Solu-Medrol and started to feel better. Chest x-ray showed bilateral mild opacities. Given a dose of Rocephin and Zithromax. EKG did not show any acute ST elevation and negative troponins. I believe patient has COPD exacerbation, discussed with Dr. Nelson, reviewed history, work-up and agreed with admission. Blood Culture(s) Obtained: Yes Antibiotics given: Yes Discussed with : Kaylee Will see patient in: hospital (observation) Counseled pt/family regarding: lab results, diagnosis, need for follow-up, rad results - Departure Departure Disposition: Observation Clinical Impression: COPD exacerbation Condition: Stable Critical Care Time: No Referrals: DAV SEALS DO [Primary Care Provider] - Follow up/PCP as directed Instructions: Chronic Obstructive Pulmonary Disease
[2021-07-12] MEDS ORDERED: BABY ASPIRIN 81 MG CHEW ONE (12:16)
[2021-07-12] MEDS ORDERED: Sterile H2O 10 ml IJ ONE (12:16)
[2021-07-12] MEDS ORDERED: solu-MEDROL ONE ×2 (12:16→23:02)
--- NOTE | 2021-07-12 12:31 | XRAY ---
Indication: Short of breath. Comparison: June 19, 2021. Portable chest demonstrates worsening mild bibasilar interstitial alveolar opacities without consolidation/large effusion. Stable COPD, scattered fibrosis/scarring, and left upper lung suture material. Heart not enlarged.
[2021-07-12] MEDS ORDERED: ROCEPHIN 2 Gm-D5w 50ML BAG** 2 G/50 ML IVPB IV STA (12:33)
[2021-07-12] MEDS ORDERED: Zithromax 500 MG/ 250 ML NaCl Premix 500 MG/250 ML IVPB IV STA (12:33)
[2021-07-12] MEDS ORDERED: ROCEPHIN 1 Gm-D5w 50 ml Bag** 0 G/0 ML IVPB IV ONE (12:48)
[2021-07-12] MEDS ORDERED: ROCEPHIN 2 Gm-D5w 50ML BAG** 2 G/50 ML IVPB IV ONE (12:50)
[2021-07-12 13:06] LABS: Absolute Neutrophil Ct (ANC) 7.62 (1.4-6.9); BASOPHIL % 0.2 % (0.0-0.4); Basophil (Absolute #) 0.02 (0-0.4); Eosinophil % 0.2 % (0.00-5.0); Eosinophil (Absolute #) 0.02 (0-0.5); Hematocrit 43.4 % (42-50); Hemoglobin 13.2 gm/dl (12.5-18.0); Lymphocyte (Absolute #) 0.68 (1.0-4.6); Lymphocytes % 7.7 % (24.0-44.0); Mean Cell Volume 86.1 fl (78-100); Mean Corpuscular Hemoglobin 26.2 pg (26-32); Mean Corpuscular Hgb Concent. 30.4 g/dl (32-36); Mean Platelet Volume 9.6 fl (7.5-11.0); Monocyte (Absolute #) 0.46 (0.0-1.3); Monocytes % 5.2 % (0.0-12.0); Neutrophil % 86.7 % (36.0-66.0); Platelet Count 338 K/mm3 (150-450); Red Blood Count 5.04 M/mm3 (4.1-5.6); Red Cell Distribution Width 16.6 % (11.5-14.0); White Blood Count 8.8 K/mm3 (4.0-10.5)
[2021-07-12 13:17] LABS: ALBUMIN 4.1 g/dL (3.5-5.0); ALKALINE PHOSPHATASE 48 U/L (38-126); ANION GAP 8.9 MEQ/L (5-15); BLOOD UREA NITROGEN 11 mg/dL (9-20); CHLORIDE 93 mmol/L (98-107); Calcium 9.2 mg/dL (8.4-10.2); Carbon Dioxide 34 mmol/L (22-30); EST GLOMERULAR FILTRATION RATE > 60.0 ML/MIN; Glucose 155 mg/dL (74-106); NT PRO BNP 379 pg/mL (0-900); Potassium 4.5 mmol/L (3.5-5.1); SGOT/AST 22 U/L (17-59); SGPT/ALT 22 U/L (0-50); SODIUM 131 mmol/L (137-145); Total Protein 7.1 g/dL (6.3-8.2)
[2021-07-12] MEDS ORDERED: Zithromax 500 MG/ 250 ML NaCl Premix 0 MG/0 ML IVPB IV ONE (14:12)
[2021-07-12] MEDS ORDERED: Zithromax 500 MG/ 250 ML NaCl Premix 500 MG/250 ML IVPB IV ONE (14:15)
[2021-07-12 15:07] LABS: INFLUENZA A NEGATIVE (NEGATIVE); INFLUENZA B NEGATIVE (NEGATIVE); RESPIRATORY SYNCTIAL VIRUS NEGATIVE (Negative); SARS-CoV-2 Xpert Express NEGATIVE (NEGATIVE)
[2021-07-12 16:09] LABS: Appearance CLEAR (CLEAR); Bilirubin NEGATIVE (NEGATIVE); Blood NEGATIVE Ery/ul (0-5); Glucose NEGATIVE (NEGATIVE); Ketones NEGATIVE (NEGATIVE); Leukocyte Esterase NEGATIVE (NEGATIVE); Mucus SLIGHT /HPF (NEGATIVE); Nitrite NEGATIVE (NEGATIVE); Protein,Urine Dip NEGATIVE (Negative); Specific Gravity 1.008 (1.005-1.025); Urobilinogen NEGATIVE mg/dL (0-1)
[2021-07-12] MEDS ORDERED: TYLENOL 325 MG PO PRN (16:46)
[2021-07-12] MEDS ORDERED: HUMALOG SQ PRN (16:46)
[2021-07-12] MEDS: Advair Hfa 115/21 Common canister IH SCH (17:28)
[2021-07-12] MEDS: DUONEB 0.5-3 MG/3 ml Neb IH SCH ×2 (17:28→22:45)
[2021-07-12] MEDS: solu-MEDROL 60 MG, Sterile H2O 10 ml 2 ML IV SCH ×4 (17:36→23:06)
[2021-07-12] MEDS ORDERED: DUONEB 0.5-3 MG/3 ml Neb IH SCH (19:00)
[2021-07-12] MEDS ORDERED: Artificial Tears 15 ML OP PRN (19:53)
[2021-07-12] MEDS: THEOPHYLLINE ER 24HR PO SCH (22:04)
[2021-07-12] MEDS: Lopressor 25MG Tab PO SCH (22:04)
[2021-07-12] MEDS: XANAX 1 MG PO SCH (22:04)
[2021-07-13 01:24] LABS: ALBUMIN 3.3 g/dL (3.5-5.0); ALKALINE PHOSPHATASE 44 U/L (38-126); ANION GAP 8.1 MEQ/L (5-15); BLOOD UREA NITROGEN 10 mg/dL (9-20); CHLORIDE 94 mmol/L (98-107); Carbon Dioxide 33 mmol/L (22-30); Creatinine 1 0.55 mg/dL (0.66-1.25); EST GLOMERULAR FILTRATION RATE > 60.0 ML/MIN; Glucose 155 mg/dL (74-106); Potassium 4.4 mmol/L (3.5-5.1); SGOT/AST 18 U/L (17-59); SGPT/ALT 20 U/L (0-50); SODIUM 131 mmol/L (137-145); Total Protein 5.7 g/dL (6.3-8.2)
[2021-07-13] MEDS: DUONEB 0.5-3 MG/3 ml Neb IH SCH ×6 (03:44→23:02)
[2021-07-13 05:10] LABS: Absolute Neutrophil Ct (ANC) 7.06 (1.4-6.9); BASOPHIL % 0.1 % (0.0-0.4); Basophil (Absolute #) 0.01 (0-0.4); Eosinophil % 0.1 % (0.00-5.0); Eosinophil (Absolute #) 0.01 (0-0.5); Hematocrit 40.3 % (42-50); Hemoglobin 12.5 gm/dl (12.5-18.0); Lymphocyte (Absolute #) 0.41 (1.0-4.6); Lymphocytes % 5.4 % (24.0-44.0); Mean Cell Volume 85.6 fl (78-100); Mean Corpuscular Hemoglobin 26.5 pg (26-32); Mean Platelet Volume 9.9 fl (7.5-11.0); Monocyte (Absolute #) 0.15 (0.0-1.3); Neutrophil % 92.4 % (36.0-66.0); Platelet Count 329 K/mm3 (150-450); Red Blood Count 4.71 M/mm3 (4.1-5.6); Red Cell Distribution Width 16.4 % (11.5-14.0); White Blood Count 7.6 K/mm3 (4.0-10.5)
[2021-07-13] MEDS ORDERED: solu-MEDROL ONE (06:32)
[2021-07-13] MEDS: solu-MEDROL 60 MG, Sterile H2O 10 ml 2 ML IV SCH ×2 (06:34)
[2021-07-13] MEDS: Advair Hfa 115/21 Common canister IH SCH ×2 (07:07→18:38)
[2021-07-13] MEDS ORDERED: MEDICATION INTERVENTION MC SCH (07:15)
[2021-07-13] MEDS ORDERED: NON-FORMULARY ITEM (Omeprazole 20 Mg [Prilosec 20 Mg] 20 MG Capsule.Dr) PO SCH (07:30)
[2021-07-13 07:44] LABS: Slide Review 1 YES
--- NOTE | 2021-07-13 09:05 | PCM.HP ---
History of Present Illness - Chief Complaint Chief Complaint: COPD exacerbation History of Present Illness: is a 75 year old male pt of Dr. Bowen with COPD (on theophylline and home O2), HTN, CAD, and DM who was admitted with COPD exacerbation through ER. He had complained of 1 week of increasing shortness of breath with wheeze and cough prod of yellow sputum. He felt better with nebulizer and solumedrol in ER. Was started on IV rocephin and zithromax and admitted for further treatment. Last month he was here for 1 week with pneumonia. After discharge, his family members started passing around another upper respiratory illness. He denies any fever. Had occasional L sided chest pain lasting 30 seconds for which he takes nitroglycerin (sees Dr. Jc). This morning he is feeling better. Wears 4-5L O2 at home (was wearing 4 L [employer]). - Review of Systems Respiratory: Cough, Short Of Breath, Wheezing Cardiac: Chest Pain, Edema (LE, intermittent, dependent) Abdominal/Gastrointestinal: Diarrhea (loose stools at times) Genitourinary Symptoms: Dysuria (at times) Neurological: Dizziness (occ lightheaded when sitting) Psychological: Anxiety, Depression (takes medication and is well controlled. denies suicidal or homicidal ideation.) All Other Systems: Reviewed and Negative Medications & Allergies Home Medications: Home Medication List Albuterol 2.5 mg/3 ml Neb [Proventil 2.5 mg/3 ml Neb] 1 neb IH Q6H PRN 02/04/14 [History Confirmed 07/12/21] Aspirin 81 mg PO DAILY 02/04/14 [History Confirmed 07/12/21] Omeprazole 20 MG [Prilosec 20 mg] 20 mg PO BIDAC 02/04/14 [History Confirmed 07/12/21] Nitroglycerin 0.4 mg Tablet [Nitrostat 0.4 MG Tablet] 0.4 mg SL Q5MIN PRN MR X 3 PRN 08/01/16 [History Confirmed 07/12/21] ALPRAZolam 1 MG [Xanax 1 mg] 1 mg PO BID 10/14/18 [History Confirmed 07/12/21] Theophylline Anhydrous 300 mg PO BID 10/14/18 [History Confirmed 07/12/21] Albuterol Common Canister [Ventolin Common Canister] 2 puff IH Q6HPRN PRN 06/01/20 [History Confirmed 07/12/21] Isosorbide Mononitrate 60 mg [Imdur 60MG] 60 mg PO DAILY 06/01/20 [History Confirmed 07/12/21] Metoprolol Tartrate 25 mg [Lopressor 25MG Tab] 25 mg PO BID 06/01/20 [History Confirmed 07/12/21] Polyvinyl Alcohol Tears [Artificial Tears 15 ML] 1 drop OP Q4H PRN PRN 06/01/20 [History Confirmed 07/12/21] Rosuvastatin Calcium 20 mg PO HS 06/01/20 [History Confirmed 07/12/21] Spironolactone 25 mg [Aldactone 25 MG] 12.5 mg PO DAILY 01/25/21 [History Confirmed 07/12/21] Albuterol Sulfate [Proair Digihaler] 2 puffs IH Q6H PRN 03/24/21 [History Confirmed 07/12/21] Budesonide/Glycopyr/Formoterol [Breztri Aerosphere Inhaler] 2 puffs IH BID 03/24/21 [History Confirmed 07/12/21] Amlodipine Besylate 2.5 mg PO DAILY 06/12/21 [History Confirmed 07/12/21] Furosemide 20 mg [Lasix 20 mg] 20 mg PO DAILY 06/12/21 [History Confirmed 07/12/21] Pramipexole Di-HCl [Mirapex] 0.25 mg PO DAILY 06/12/21 [History Confirmed 07/12/21] Sacubitril/Valsartan [Entresto 97 mg-103 mg Tablet] 1 each PO DAILY 06/12/21 [H istory Confirmed 07/12/21] Clotrimazole 10 mg SUBMUCOSAL QID 07/12/21 [History Confirmed 07/12/21] Prednisone 5 mg [Deltasone 5 mg] 20 mg PO DAILY 07/12/21 [History Confirmed 07/12/21] Allergies/Adverse Reactions: Allergies Allergy/AdvReac Type Severity Reaction Status Date / Time nicotine [From [facility]] Allergy Severe Rash Verified 07/12/21 12:07 - Past Medical History Past Medical History: Yes Neurological History: No Pertinent History ENT History: No Pertinent History Cardiac History: Aneurysm, Hypertension Respiratory History: COPD, Sleep Apnea Endocrine Medical History: Diabetes Type II Musculoskelatal History: No Pertinent History GI Medical History: No Pertinent History, GERD History: No Pertinent History Pyscho-Social History: Anxiety Male Reproductive Disorders: No Pertinent History Comment: 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 Pt also states he had an increase of SOB and chest pain that he has seen Dr. Mallory for and he has been put on nitro. PT wears 4L O2 AT ALL TIMES - Past Surgical History Past Surgical History: Yes Neuro Surgical History: No Pertinent History Cardiac History: No Pertinent History Respiratory Surgery: Other GI Surgical History: Hernia Repair Genitourinary Surgical Hx: No Pertinent History Musculskeletal Surgical Hx: Orthopedic Surgery Male Surgical History: Vasectomy Other Surgical History: BACK SURGERY, and ear surgery and a left lung biopsy. 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, double hernia repair, - Social History Smoking Status: Former smoker How long have you smoked: 13 Exposure to second hand smoke: No Alcohol: None Drug Use: none - Physical Exam Vital Signs: Vital Signs - 24 hr Temp Pulse Resp BP Pulse Ox 07/13/21 07:46 97.6 F 80 27 H 122/61 96 07/13/21 07:11 77 20 96 07/13/21 04:00 97.5 F 76 20 112/69 96 07/13/21 03:44 90 20 93 L 07/13/21 00:00 97.8 F 72 20 105/74 95 07/12/21 22:46 85 22 92 L 07/12/21 20:00 98.6 F 104 H 23 121/71 93 L 07/12/21 17:22 100 H 24 95 07/12/21 16:55 98.0 F 105 H 22 120/82 96 07/12/21 16:40 92 L 07/12/21 15:19 96 H 20 126/82 95 07/12/21 14:08 75 22 126/84 95 07/12/21 13:05 80 28 H 112/71 93 L 07/12/21 12:09 102 H 26 H 98 07/12/21 12:06 36 H 93 L 07/12/21 11:57 106 H 36 H 136/78 92 L General Appearance: no apparent distress, alert Neurologic Exam: oriented x 3, cooperative Eye Exam: eyes nml inspection Ears, Nose, Throat Exam: moist mucous membranes Neck Exam: normal inspection, non-tender, No lymphadenopathy Respiratory Exam: diminished breath sounds (good air exchange), prolonged exp irations, No crackles/rales, No rhonchi, No wheezing Cardiovascular Exam: regular rate/rhythm, normal heart sounds, No murmur Gastrointestinal/Abdomen Exam: soft, normal bowel sounds, No tenderness, No distention, No mass, No guarding, No rebound Back Exam: normal inspection, No rash Extremity Exam: normal inspection, No pedal edema, No swelling Skin Exam: normal color, warm, dry, No rash Results - Labs Lab/Micro Results: Lab Results-Last 24 Hours 07/12/21 07/12/21 07/12/21 Range/Units 12:12 12:16 12:16 WBC 8.8 (4.0-10.5) K/mm3 RBC 5.04 (4.1-5.6) M/mm3 Hgb 13.2 (12.5-18.0) gm/dl Hct 43.4 (42-50) % MCV 86.1 (78-100) fl MCH 26.2 (26-32) pg MCHC 30.4 L (32-36) g/dl RDW 16.6 H (11.5-14.0) % Plt Count 338 (150-450) K/mm3 MPV 9.6 (7.5-11.0) fl Gran % 86.7 H (36.0-66.0) % Eos # (Auto) 0.02 (0-0.5) Absolute Lymphs (auto) 0.68 L (1.0-4.6) Absolute Monos (auto) 0.46 (0.0-1.3) Lymphocytes % 7.7 L (24.0-44.0) % Monocytes % 5.2 (0.0-12.0) % Eosinophils % 0.2 (0.00-5.0) % Basophils % 0.2 (0.0-0.4) % Absolute Granulocytes 7.62 H (1.4-6.9) Basophils # 0.02 (0-0.4) Sodium 131 L (137-145) mmol/L Potassium 4.5 (3.5-5.1) mmol/L Chloride 93 L (98-107) mmol/L Carbon Dioxide 34 H (22-30) mmol/L Anion Gap 8.9 (5-15) MEQ/L BUN 11 (9-20) mg/dL Creatinine 0.70 (0.66-1.25) mg/dL Estimated GFR > 60.0 ML/MIN Glucose 155 H (74-106) mg/dL Lactic Acid 1.6 (0.4-2.0) Calcium 9.2 (8.4-10.2) mg/dL Magnesium 2.0 (1.6-2.3) mg/dL Total Bilirubin 0.90 (0.2-1.3) mg/dL AST 22 (17-59) U/L ALT 22 (0-50) U/L Alkaline Phosphatase 48 (38-126) U/L Troponin I (0.000-0.034) ng/mL NT-Pro-B Natriuret Pep 379 (0-900) pg/mL Serum Total Protein 7.1 (6.3-8.2) g/dL Albumin 4.1 (3.5-5.0) g/dL Urine Color (YELLOW) Urine Appearance (CLEAR) Urine pH (5-6) Ur Specific [place] (1.005-1.025) Urine Protein (Negative) Urine Ketones (NEGATIVE) Urine Blood (0-5) Johan/ul Urine Nitrite (NEGATIVE) Urine Bilirubin (NEGATIVE) Urine Urobilinogen (0-1) mg/dL Ur Leukocyte Esterase (NEGATIVE) Urine WBC (Auto) (0-5) /HPF Urine RBC (Auto) (0-2) /HPF U Epithel Cells (Auto) (FEW) /HPF Urine Bacteria (Auto) (NEGATIVE) /HPF Urine Mucus (Auto) (NEGATIVE) /HPF Urine Culture Reflexed (NO) Urine Glucose (NEGATIVE) mg/dL Influenza Type A Ag (NEGATIVE) Influenza Type B Ag (NEGATIVE) RSV (PCR) (Negative) SARS-CoV-2 (PCR) (NEGATIVE) Slides for Path Review 07/12/21 07/12/21 07/12/21 Range/Units 12:16 14:24 14:46 WBC (4.0-10.5) K/mm3 RBC (4.1-5.6) M/mm3 Hgb (12.5-18.0) gm/dl Hct (42-50) % MCV (78-100) fl MCH (26-32) pg MCHC (32-36) g/dl RDW (11.5-14.0) % Plt Count (150-450) K/mm3 MPV (7.5-11.0) fl Gran % (36.0-66.0) % Eos # (Auto) (0-0.5) Absolute Lymphs (auto) (1.0-4.6) Absolute Monos (auto) (0.0-1.3) Lymphocytes % (24.0-44.0) % Monocytes % (0.0-12.0) % Eosinophils % (0.00-5.0) % Basophils % (0.0-0.4) % Absolute Granulocytes (1.4-6.9) Basophils # (0-0.4) Sodium (137-145) mmol/L Potassium (3.5-5.1) mmol/L Chloride (98-107) mmol/L Carbon Dioxide (22-30) mmol/L Anion Gap (5-15) MEQ/L BUN (9-20) mg/dL Creatinine (0.66-1.25) mg/dL Estimated GFR ML/MIN Glucose (74-106) mg/dL Lactic Acid (0.4-2.0) Calcium (8.4-10.2) mg/dL Magnesium (1.6-2.3) mg/dL Total Bilirubin (0.2-1.3) mg/dL AST (17-59) U/L ALT (0-50) U/L Alkaline Phosphatase (38-126) U/L Troponin I < 0.012 (0.000-0.034) ng/mL NT-Pro-B Natriuret Pep (0-900) pg/mL Serum Total Protein (6.3-8.2) g/dL Albumin (3.5-5.0) g/dL Urine Color YELLOW (YELLOW) Urine Appearance CLEAR (CLEAR) Urine pH 7.0 (5-6) Ur Specific [place] 1.008 (1.005-1.025) Urine Protein NEGATIVE (Negative) Urine Ketones NEGATIVE (NEGATIVE) Urine Blood NEGATIVE (0-5) [place]/ul Urine Nitrite NEGATIVE (NEGATIVE) Urine Bilirubin NEGATIVE (NEGATIVE) Urine Urobilinogen NEGATIVE (0-1) mg/dL Ur Leukocyte Esterase NEGATIVE (NEGATIVE) Urine WBC (Auto) NONE (0-5) /HPF Urine RBC (Auto) NONE (0-2) /HPF U Epithel Cells (Auto) NONE (FEW) /HPF Urine Bacteria (Auto) NONE (NEGATIVE) /HPF Urine Mucus (Auto) SLIGHT (NEGATIVE) /HPF Urine Culture Reflexed NO (NO) Urine Glucose NEGATIVE (NEGATIVE) mg/dL Influenza Type A Ag NEGATIVE (NEGATIVE) Influenza Type B Ag NEGATIVE (NEGATIVE) RSV (PCR) NEGATIVE (Negative) SARS-CoV-2 (PCR) NEGATIVE (NEGATIVE) Slides for Path Review 07/12/21 07/12/21 07/12/21 Range/Units 15:18 18:36 21:26 WBC (4.0-10.5) K/mm3 RBC (4.1-5.6) M/mm3 Hgb (12.5-18.0) gm/dl Hct (42-50) % MCV (78-100) fl MCH (26-32) pg MCHC (32-36) g/dl RDW (11.5-14.0) % Plt Count (150-450) K/mm3 MPV (7.5-11.0) fl Gran % (36.0-66.0) % Eos # (Auto) (0-0.5) Absolute Lymphs (auto) (1.0-4.6) Absolute Monos (auto) (0.0-1.3) Lymphocytes % (24.0-44.0) % Monocytes % (0.0-12.0) % Eosinophils % (0.00-5.0) % Basophils % (0.0-0.4) % Absolute Granulocytes (1.4-6.9) Basophils # (0-0.4) Sodium (137-145) mmol/L Potassium (3.5-5.1) mmol/L Chloride (98-107) mmol/L Carbon Dioxide (22-30) mmol/L Anion Gap (5-15) MEQ/L BUN (9-20) mg/dL Creatinine (0.66-1.25) mg/dL Estimated GFR ML/MIN Glucose (74-106) mg/dL Lactic Acid (0.4-2.0) Calcium (8.4-10.2) mg/dL Magnesium (1.6-2.3) mg/dL Total Bilirubin (0.2-1.3) mg/dL AST (17-59) U/L ALT (0-50) U/L Alkaline Phosphatase (38-126) U/L Troponin I < 0.012 < 0.012 < 0.012 (0.000-0.034) ng/mL NT-Pro-B Natriuret Pep (0-900) pg/mL Serum Total Protein (6.3-8.2) g/dL Albumin (3.5-5.0) g/dL Urine Color (YELLOW) Urine Appearance (CLEAR) Urine pH (5-6) Ur Specific [place] (1.005-1.025) Urine Protein (Negative) Urine Ketones (NEGATIVE) Urine Blood (0-5) Johan/ul Urine Nitrite (NEGATIVE) Urine Bilirubin (NEGATIVE) Urine Urobilinogen (0-1) mg/dL Ur Leukocyte Esterase (NEGATIVE) Urine WBC (Auto) (0-5) /HPF Urine RBC (Auto) (0-2) /HPF U Epithel Cells (Auto) (FEW) /HPF Urine Bacteria (Auto) (NEGATIVE) /HPF Urine Mucus (Auto) (NEGATIVE) /HPF Urine Culture Reflexed (NO) Urine Glucose (NEGATIVE) mg/dL Influenza Type A Ag (NEGATIVE) Influenza Type B Ag (NEGATIVE) RSV (PCR) (Negative) SARS-CoV-2 (PCR) (NEGATIVE) Slides for Path Review 07/13/21 07/13/21 07/13/21 Range/Units 01:08 01:08 01:08 WBC 7.6 (4.0-10.5) K/mm3 RBC 4.71 (4.1-5.6) M/mm3 Hgb 12.5 (12.5-18.0) gm/dl Hct 40.3 L (42-50) % MCV 85.6 (78-100) fl MCH 26.5 (26-32) pg MCHC 31.0 L (32-36) g/dl RDW 16.4 H (11.5-14.0) % Plt Count 329 (150-450) K/mm3 MPV 9.9 (7.5-11.0) fl Gran % 92.4 H (36.0-66.0) % Eos # (Auto) 0.01 (0-0.5) Absolute Lymphs (auto) 0.41 L (1.0-4.6) Absolute Monos (auto) 0.15 (0.0-1.3) Lymphocytes % 5.4 L (24.0-44.0) % Monocytes % 2.0 (0.0-12.0) % Eosinophils % 0.1 (0.00-5.0) % Basophils % 0.1 (0.0-0.4) % Absolute Granulocytes 7.06 H (1.4-6.9) Basophils # 0.01 (0-0.4) Sodium 131 L (137-145) mmol/L Potassium 4.4 (3.5-5.1) mmol/L Chloride 94 L (98-107) mmol/L Carbon Dioxide 33 H (22-30) mmol/L Anion Gap 8.1 (5-15) MEQ/L BUN 10 (9-20) mg/dL Creatinine 0.55 L (0.66-1.25) mg/dL Estimated GFR > 60.0 ML/MIN Glucose 155 H (74-106) mg/dL Lactic Acid (0.4-2.0) Calcium 9.0 (8.4-10.2) mg/dL Magnesium (1.6-2.3) mg/dL Total Bilirubin 0.60 (0.2-1.3) mg/dL AST 18 (17-59) U/L ALT 20 (0-50) U/L Alkaline Phosphatase 44 (38-126) U/L Troponin I < 0.012 (0.000-0.034) ng/mL NT-Pro-B Natriuret Pep (0-900) pg/mL Serum Total Protein 5.7 L (6.3-8.2) g/dL Albumin 3.3 L (3.5-5.0) g/dL Urine Color (YELLOW) Urine Appearance (CLEAR) Urine pH (5-6) Ur Specific [place] (1.005-1.025) Urine Protein (Negative) Urine Ketones (NEGATIVE) Urine Blood (0-5) Johan/ul Urine Nitrite (NEGATIVE) Urine Bilirubin (NEGATIVE) Urine Urobilinogen (0-1) mg/dL Ur Leukocyte Esterase (NEGATIVE) Urine WBC (Auto) (0-5) /HPF Urine RBC (Auto) (0-2) /HPF U Epithel Cells (Auto) (FEW) /HPF Urine Bacteria (Auto) (NEGATIVE) /HPF Urine Mucus (Auto) (NEGATIVE) /HPF Urine Culture Reflexed (NO) Urine Glucose (NEGATIVE) mg/dL Influenza Type A Ag (NEGATIVE) Influenza Type B Ag (NEGATIVE) RSV (PCR) (Negative) SARS-CoV-2 (PCR) (NEGATIVE) Slides for Path Review YES - Radiology Impressions Radiology Exams & Impressions: Radiology Procedures Category Date Time Status CHEST 1 VIEW (PORTABLE) Stat Exams 07/12/21 12:06 Completed - Other Procedures and Tests Respiratory Therapy 07/12/21 16:46 Oxygen Nasal Cannula 4 lpm 07/13/21 07:00 Respiratory Therapy Assessment DAILY Assessment/Plan (1) COPD exacerbation Current Visit: Yes Status: Acute Assessment & Plan: Doing better on IV steroids and IV antibiotics, with nebulizer tx. Will likely have him stay a couple more days with current treatment then home on po steroid and antibiotic. Code(s): J44.1 - CHRONIC OBSTRUCTIVE PULMONARY DISEASE W (ACUTE) EXACERBATION (2) CAD (coronary artery disease) Current Visit: No Status: Chronic Qualifiers: Coronary Disease-Associated Artery/Lesion type: [place] artery [place] vs. 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
[2021-07-13] MEDS: Aldactone 25 MG PO SCH (09:09)
[2021-07-13] MEDS: Lopressor 25MG Tab PO SCH ×2 (09:09→21:57)
[2021-07-13] MEDS: ROCEPHIN 1 Gm-D5w 50 ml Bag** 1 G/50 ML IVPB IV SCH (09:09)
[2021-07-13] MEDS: Mirapex 0.5 MG Tablet PO SCH (09:09)
[2021-07-13] MEDS: ENTRESTO 49 MG-51 MG TABLET PO SCH (09:09)
[2021-07-13] MEDS: LASIX 20 MG PO SCH (09:09)
[2021-07-13] MEDS: Protonix 40MG Tablet PO SCH ×2 (09:09→17:48)
[2021-07-13] MEDS: ECOTRIN 81 MG PO SCH (09:09)
[2021-07-13] MEDS: THEOPHYLLINE ER 24HR PO SCH ×2 (09:10→21:57)
[2021-07-13] MEDS: XANAX 1 MG PO SCH ×2 (09:10→21:57)
[2021-07-13] MEDS: NORVASC 5 MG PO SCH (09:10)
[2021-07-13] MEDS: Imdur 60MG PO SCH (09:10)
[2021-07-13] MEDS ORDERED: Nitrostat 0.4 MG Tablet SL PRN (09:55)
[2021-07-13] MEDS ORDERED: CLOTRIMAZOLE 10 MG SUBMUCOSAL SCH (10:00)
[2021-07-13] MEDS ORDERED: TROCHE SUBMUCOSAL SCH (10:00)
[2021-07-13] MEDS ORDERED: PRAMIPEXOLE DI HCL 0.25 MG PO SCH (10:00)
[2021-07-13] MEDS ORDERED: NON-FORMULARY ITEM (Amlodipine Besylate [Amlodipine Besylate] 2.5 MG Tablet) PO SCH (10:00)
[2021-07-13] MEDS ORDERED: NON-FORMULARY ITEM (Sacubitril/Valsartan [Entresto 97 Mg-103 Mg Tablet] 1 EACH Tablet) PO SCH (10:00)
[2021-07-13] MEDS ORDERED: PROTONIX 40 MG IV IV SCH (10:00)
[2021-07-13] MEDS ORDERED: NON-FORMULARY ITEM (Aspirin [Aspirin] 81 MG Tablet) PO SCH (10:00)
[2021-07-13] MEDS: Zithromax 500 MG/ 250 ML NaCl Premix 500 MG/250 ML IVPB IV SCH (10:08)
[2021-07-13] MEDS: solu-MEDROL IV SCH ×2 (12:28→17:48)
[2021-07-14] MEDS: solu-MEDROL IV SCH ×3 (00:19→18:12)
[2021-07-14] MEDS: DUONEB 0.5-3 MG/3 ml Neb IH SCH ×6 (03:14→22:52)
[2021-07-14] MEDS: Advair Hfa 115/21 Common canister IH SCH ×2 (07:19→18:42)
[2021-07-14] MEDS: Protonix 40MG Tablet PO SCH ×2 (07:41→18:12)
[2021-07-14] MEDS: ENTRESTO 49 MG-51 MG TABLET PO SCH (08:54)
[2021-07-14] MEDS: Mirapex 0.5 MG Tablet PO SCH (08:55)
[2021-07-14] MEDS: Aldactone 25 MG PO SCH (08:55)
[2021-07-14] MEDS: XANAX 1 MG PO SCH ×2 (08:56→21:08)
[2021-07-14] MEDS: ECOTRIN 81 MG PO SCH (08:56)
[2021-07-14] MEDS: NORVASC 5 MG PO SCH (08:56)
[2021-07-14] MEDS: Lopressor 25MG Tab PO SCH ×2 (08:56→08:57)
[2021-07-14] MEDS: Imdur 60MG PO SCH (08:57)
[2021-07-14] MEDS: LASIX 20 MG PO SCH (08:57)
--- NOTE | 2021-07-14 08:57 | PCM.NOTE ---
Date and Time: 07/14/21 0855 Subjective Assessment: Pt is feeling better. Still on 5L NC. Saundra po well. - Review of Systems Constitutional: No Fever Respiratory: Cough, Short Of Breath Objective Exam General Appearance: no apparent distress, alert Neurologic Exam: oriented x 3, cooperative Skin Exam: normal color, warm, dry, No rash Eye Exam: eyes nml inspection Ears, Nose, Throat Exam: moist mucous membranes Neck Exam: normal inspection Respiratory Exam: diminished breath sounds (good air exchange), prolonged expirations, No crackles/rales, No rhonchi, No wheezing Cardiovascular Exam: normal heart sounds, tachycardia, No murmur Gastrointestinal/Abdomen Exam: soft, normal bowel sounds, No tenderness, No distention, No mass, No guarding, No rebound Extremity Exam: normal inspection, No pedal edema, No swelling Back Exam: normal inspection, No rash OBJECTIVE DATA Vital Signs: Vital Signs - 24 hr Temp Pulse Resp BP Pulse Ox 07/14/21 07:28 98.0 F 103 H 22 115/59 97 07/14/21 07:20 101 H 22 94 L 07/14/21 04:00 97.3 F 109 H 24 104/64 97 07/14/21 03:15 88 22 95 07/14/21 00:00 98.4 F 85 20 105/56 96 07/13/21 23:56 93 H 18 93 L 07/13/21 20:00 97.7 F 95 H 22 101/54 95 07/13/21 18:41 92 H 20 96 07/13/21 16:00 98.7 F 100 H 25 H 94/55 88 L 07/13/21 15:32 80 23 91 L 07/13/21 11:46 96.9 F 80 24 96/60 94 L 07/13/21 11:19 89 24 91 L Pain Assessment - Last Documented Pain Intensity 0 Intake and Output: Intake & Output 07/11/21 07/12/21 07/13/21 07/14/21 11:59 11:59 11:59 11:59 Intake Total 1200 1380 Output Total 525 1450 Balance 675 -70 Weight 164 kg 75.6 kg 75.4 kg Radiology Exams: Radiology Procedures Category Date Time Status CHEST 1 VIEW (PORTABLE) Stat Exams 07/12/21 12:06 Completed Assessment/Plan (1) COPD exacerbation Current Visit: Yes Status: Acute Assessment & Plan: Doing better. Decrease steroids to 40mg IV q12h today and likely home tomorrow on po prednisone and augmentin. On day #3 zithromax/rocephin. Code(s): J44.1 - CHRONIC OBSTRUCTIVE PULMONARY DISEASE W (ACUTE) EXACERBATION (2) CAD (coronary artery disease) Current Visit: No Status: Chronic Qualifiers: Coronary Disease-Associated Artery/Lesion type: [place] artery [place] vs. 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
[2021-07-14] MEDS: THEOPHYLLINE ER 24HR PO SCH ×2 (08:58→21:08)
[2021-07-14] MEDS: ROCEPHIN 1 Gm-D5w 50 ml Bag** 1 G/50 ML IVPB IV SCH (08:59)
[2021-07-14] MEDS ORDERED: solu-MEDROL IV SCH (09:00)
[2021-07-14] MEDS: Zithromax 500 MG/ 250 ML NaCl Premix 500 MG/250 ML IVPB IV SCH (09:38)
[2021-07-15] MEDS: DUONEB 0.5-3 MG/3 ml Neb IH SCH ×2 (02:58→07:49)
[2021-07-15] MEDS: solu-MEDROL IV SCH (05:26)
[2021-07-15 06:36] LABS: Absolute Neutrophil Ct (ANC) 8.94 (1.4-6.9); BASOPHIL % 0.1 % (0.0-0.4); Basophil (Absolute #) 0.01 (0-0.4); Eosinophil (Absolute #) 0 (0-0.5); Hematocrit 40.1 % (42-50); Hemoglobin 12.3 gm/dl (12.5-18.0); Lymphocyte (Absolute #) 0.66 (1.0-4.6); Lymphocytes % 6.4 % (24.0-44.0); Mean Cell Volume 86.2 fl (78-100); Mean Corpuscular Hemoglobin 26.5 pg (26-32); Mean Corpuscular Hgb Concent. 30.7 g/dl (32-36); Mean Platelet Volume 9.5 fl (7.5-11.0); Monocyte (Absolute #) 0.63 (0.0-1.3); Monocytes % 6.2 % (0.0-12.0); Neutrophil % 87.3 % (36.0-66.0); Platelet Count 359 K/mm3 (150-450); Red Blood Count 4.65 M/mm3 (4.1-5.6); Red Cell Distribution Width 16.3 % (11.5-14.0); White Blood Count 10.2 K/mm3 (4.0-10.5)
[2021-07-15 06:57] LABS: ANION GAP 8.8 MEQ/L (5-15); BLOOD UREA NITROGEN 14 mg/dL (9-20); CHLORIDE 94 mmol/L (98-107); Calcium 8.7 mg/dL (8.4-10.2); Carbon Dioxide 31 mmol/L (22-30); Creatinine 1 0.59 mg/dL (0.66-1.25); EST GLOMERULAR FILTRATION RATE > 60.0 ML/MIN; Glucose 171 mg/dL (74-106); Potassium 4.1 mmol/L (3.5-5.1); SODIUM 130 mmol/L (137-145)
[2021-07-15] MEDS: Protonix 40MG Tablet PO SCH (06:57)
[2021-07-15] MEDS: Advair Hfa 115/21 Common canister IH SCH (07:51)
[2021-07-15 08:23] VITALS: BP 116/65; PULSE 82; O2SAT 98
--- NOTE | 2021-07-15 08:23 | PCM.DS ---
Discharge Summary Date of Admission: 07/12/21 16:38 Admitting Physician: ANDREA SCHRADER Primary Care Provider: DAV SEALS DO Allergies Allergies nicotine [From [facility]] Allergy (Severe, Verified 07/12/21 12:07) Rash Hospital Summary - Hospital Course Hospital Course: 75yo male with history of copd and chronic hypoxemic respiratory failure, followed by Dr Nelson. He was admitted with acute exacerbation of copd, has improved nicely with treatment with IV steroids and antibiotics. he is back to his baseline on date of discharge breathing comfortably on 4L nasal cannula which is his usual home regimen. cough is improved, he denies feeling short of breath and he is requesting discharge today. - Vitals & Intake/Output Vital Signs: Vital Signs Temperature 97.6 F 07/15/21 03:46 Pulse Rate 96 H 07/15/21 07:52 Respiratory Rate 20 07/15/21 07:52 Blood Pressure 112/68 07/15/21 03:46 O2 Sat by Pulse Oximetry 94 L 07/15/21 07:52 Intake & Output: Intake & Output 07/12/21 07/13/21 07/14/21 07/15/21 11:59 11:59 11:59 11:59 Intake Total 1200 1380 1480 Output Total 525 1450 1300 Balance 675 -70 180 Weight 164 kg 75.6 kg 75.4 kg 74.8 kg - Lab Result Diagrams: 07/15/21 04:00 07/15/21 04:00 Lab Results-Last 24 Hrs: Lab Results-Last 24 Hours 07/15/21 07/15/21 Range/Units 04:00 04:00 WBC 10.2 (4.0-10.5) K/mm3 RBC 4.65 (4.1-5.6) M/mm3 Hgb 12.3 L (12.5-18.0) gm/dl Hct 40.1 L (42-50) % MCV 86.2 (78-100) fl MCH 26.5 (26-32) pg MCHC 30.7 L (32-36) g/dl RDW 16.3 H (11.5-14.0) % Plt Count 359 (150-450) K/mm3 MPV 9.5 (7.5-11.0) fl Gran % 87.3 H (36.0-66.0) % Eos # (Auto) 0 (0-0.5) Absolute Lymphs (auto) 0.66 L (1.0-4.6) Absolute Monos (auto) 0.63 (0.0-1.3) Lymphocytes % 6.4 L (24.0-44.0) % Monocytes % 6.2 (0.0-12.0) % Eosinophils % 0.0 (0.00-5.0) % Basophils % 0.1 (0.0-0.4) % Absolute Granulocytes 8.94 H (1.4-6.9) Basophils # 0.01 (0-0.4) Sodium 130 L (137-145) mmol/L Potassium 4.1 (3.5-5.1) mmol/L Chloride 94 L (98-107) mmol/L Carbon Dioxide 31 H (22-30) mmol/L Anion Gap 8.8 (5-15) MEQ/L BUN 14 (9-20) mg/dL Creatinine 0.59 L (0.66-1.25) mg/dL Estimated GFR > 60.0 ML/MIN Glucose 171 H (74-106) mg/dL Calcium 8.7 (8.4-10.2) mg/dL Micro Results-Entire Visit: Microbiology 07/12/21 12:41 Blood Culture - Preliminary Blood NO GROWTH TO DATE 07/12/21 12:35 Blood Culture - Preliminary Blood NO GROWTH TO DATE - Procedures and Test Procedures and Tests throughout Hospitalization: Therapy Orders & Screens 07/12/21 12:09 Respiratory Therapy Assessment DAILY Comment: 07/12/21 16:46 Oxygen Nasal Cannula 4 lpm Comment: 07/13/21 07:00 Respiratory Therapy Assessment DAILY Comment: Diagnosis: COPD exacerbation Discharge Exam General Appearance: no apparent distress Neurologic Exam: alert, oriented x 3 Respiratory Exam: diminished breath sounds, prolonged expirations, No respiratory distress, No accessory muscle use, No wheezing Cardiovascular Exam: regular rate/rhythm, normal heart sounds Gastrointestinal/Abdomen Exam: soft, No tenderness, No mass Extremity Exam: normal inspection, normal range of motion Skin Exam: normal color, warm, dry Final Diagnosis/Problem List - Final Discharge Diagnosis/Problem (1) COPD exacerbation Current Visit: Yes Status: Acute Code(s): J44.1 - CHRONIC OBSTRUCTIVE PULMONARY DISEASE W (ACUTE) EXACERBATION (2) Chronic hypoxemic respiratory failure Current Visit: Yes Status: Chronic - Discharge Disposition: Home, Self-Care Condition: Stable Prescriptions: New Amox Tr/Potass Clav. 500 mg [Augmentin 500-125 Tablet] 1 each PO TID #21 tablet Prednisone 20 mg [Deltasone 20 mg] 20 mg PO UD #18 tablet Continue Omeprazole 20 MG [Prilosec 20 mg] 20 mg PO BIDAC Albuterol 2.5 mg/3 ml Neb [Proventil 2.5 mg/3 ml Neb] 1 neb IH Q6H PRN PRN Reason: sob Aspirin 81 mg PO DAILY Nitroglycerin 0.4 mg Tablet [Nitrostat 0.4 MG Tablet] 0.4 mg SL Q5MIN PRN MR X 3 PRN PRN Reason: Chest Pain ALPRAZolam 1 MG [Xanax 1 mg] 1 mg PO BID Theophylline Anhydrous 300 mg PO BID Albuterol Common Canister [Ventolin Common Canister] 2 puff IH Q6HPRN PRN PRN Reason: Shortness Of Breath/Wheezing Isosorbide Mononitrate 60 mg [Imdur 60MG] 60 mg PO DAILY Metoprolol Tartrate 25 mg [Lopressor 25MG Tab] 25 mg PO BID Polyvinyl Alcohol Tears [Artificial Tears 15 ML] 1 drop OP Q4H PRN PRN PRN Reason: dry eyes Rosuvastatin Calcium 20 mg PO HS Spironolactone 25 mg [Aldactone 25 MG] 12.5 mg PO DAILY Budesonide/Glycopyr/Formoterol [Breztri Aerosphere Inhaler] 2 puffs IH BID Albuterol Sulfate [Proair Digihaler] 2 puffs IH Q6H PRN PRN Reason: sob Pramipexole Di-HCl [Mirapex] 0.25 mg PO DAILY Sacubitril/Valsartan [Entresto 97 mg-103 mg Tablet] 1 each PO DAILY Furosemide 20 mg [Lasix 20 mg] 20 mg PO DAILY Amlodipine Besylate 2.5 mg PO DAILY Prednisone 5 mg [Deltasone 5 mg] 20 mg PO DAILY Clotrimazole 10 mg SUBMUCOSAL QID Follow up with: DAV SEALS DO [Primary Care Provider] - 1 Week
[2021-07-15] MEDS: Imdur 60MG PO SCH (09:37)
[2021-07-15] MEDS: XANAX 1 MG PO SCH (09:37)
[2021-07-15] MEDS: Mirapex 0.5 MG Tablet PO SCH (09:37)
[2021-07-15] MEDS: LASIX 20 MG PO SCH (09:38)
[2021-07-15] MEDS: NORVASC 5 MG PO SCH (09:38)
[2021-07-15] MEDS: ENTRESTO 49 MG-51 MG TABLET PO SCH (09:38)
[2021-07-15] MEDS: Lopressor 25MG Tab PO SCH (09:38)
[2021-07-15] MEDS: Aldactone 25 MG PO SCH (09:38)
[2021-07-15] MEDS: ECOTRIN 81 MG PO SCH (09:38)
[2021-07-15] MEDS: ROCEPHIN 1 Gm-D5w 50 ml Bag** 1 G/50 ML IVPB IV SCH (09:39)
[2021-07-15] MEDS: THEOPHYLLINE ER 24HR PO SCH (09:39)
[2021-07-15] MEDS: Zithromax 500 MG/ 250 ML NaCl Premix 500 MG/250 ML IVPB IV SCH (09:39)
== END 2021-07-15 10:48 | disposition home health service (06) ==
LOC: ED 11:55 → MED SURG 16:38
PROVIDERS: ADMIT Family Medicine; ATTEND Family Medicine
DX: J44.1 Chronic obstructive pulmonary disease with (acute) exacerbation (principal); J96.10 Chronic respiratory failure, unspecified whether with hypoxia or hypercapnia; I25.10 Atherosclerotic heart disease of native coronary artery without angina pectoris; E11.65 Type 2 diabetes mellitus with hyperglycemia; R91.1 Solitary pulmonary nodule; I10 Essential (primary) hypertension; R42 Dizziness and giddiness; R19.7 Diarrhea, unspecified; Z99.81 Dependence on supplemental oxygen; Z79.899 Other long term (current) drug therapy; Z20.828 Contact with and (suspected) exposure to other viral communicable diseases
CPT/HCPCS: 0241U; 36000; 36415; 71045; 80048; 80053; 81001; 83605; 83735; 83880; 84484; 85025; 87040; 93005; 93041; 93268; 94640; 94760; 94762; 96365; 96367; 96374; 99285; G0378; J0456; J0696; J2920; J2930; A9270-GY

== ENCOUNTER 2021-09-25 14:37 | Observation (INO) | payer MEDICARE ==
[2021-09-25] MEDS ORDERED: DUONEB 0.5-3 MG/3 ml Neb IH ONE ×2 (14:46→15:05)
[2021-09-25] MEDS ORDERED: Ativan 2 MG/1 ML VIAL IV ONE (14:46)
[2021-09-25] MEDS ORDERED: ROCEPHIN 1 Gm-D5w 50 ml Bag** 1 G/50 ML IVPB IV STA (14:46)
[2021-09-25] MEDS ORDERED: solu-MEDROL 125 MG, Sterile H2O 10 ml 2 ML IV ONE ×2 (14:46)
[2021-09-25] MEDS ORDERED: Lasix 40 MG/4 ML IV ONE (14:46)
[2021-09-25] MEDS ORDERED: Lasix 40 MG/4 ML ONE (14:59)
[2021-09-25] MEDS ORDERED: ROCEPHIN 1 Gm-D5w 50 ml Bag** 1 G/50 ML IVPB IV ONE (14:59)
[2021-09-25] MEDS ORDERED: solu-MEDROL ONE ×2 (14:59→19:42)
[2021-09-25] MEDS ORDERED: Sodium Chloride 0.9% 1000 ML 1,000 ML ONE (14:59)
[2021-09-25] MEDS ORDERED: Ativan 2 MG/1 ML VIAL ONE (14:59)
[2021-09-25] MEDS ORDERED: Sterile H2O 10 ml IJ ONE ×2 (15:00→19:43)
[2021-09-25] MEDS ORDERED: Sodium Chloride 0.9% 1000 ML 1,000 ML IV SCH ×2 (15:00→17:20)
--- NOTE | 2021-09-25 15:16 | ERPHSYRPT ---
- History of Present Illness Time Seen by Provider: 09/25/21 15:13 Source: patient, EMS Exam Limitations: no limitations Patient Subjective Stated Complaint: Pt has COPD and wears 4L NC at home and today he was more short of breath and weak Triage Nursing Assessment: Pt brought to the ER by EMS, hypertensive, tachycardic, tachypnic, denies pain, SOB, gets more SOB when he speaks, breaths thru nose and out thru mouth, diminshed lung sounds on the left lower, pulses normal, no edema, skin n/w/d Physician History: Patient is 75-year-old male with significant past medical history of severe COPD emphysema and cor pulmonale with hypertension and congestive heart failure and is oxygen dependent approximately 4 to 5 L of oxygen at home started having a shortness of breath for last 2 to 3 days. He started increasing his nebulizer treatment and other medication but without any help today he could not breathe at all so he came to the emergency room. Patient has a multiple episode like this as well as multiple hospital admission for this in the last 5 years. Timing/Duration: today Activities at Onset: activity, rest Severity of Dyspnea-Max: severe Severity of Dyspnea-Current: severe Possible Cause: frequent episodes Modifying Factors: Improves With: nothing Associated Symptoms: wheezing Allergies/Adverse Reactions: nicotine [From Nicoderm CQ] Allergy (Severe, Verified 09/25/21 14:55) Rash Home Medications: Albuterol 2.5 mg/3 ml Neb [Proventil 2.5 mg/3 ml Neb] 1 neb IH Q6H PRN 02/04/14 [History] Aspirin 81 mg PO DAILY 02/04/14 [History] Omeprazole 20 MG [Prilosec 20 mg] 20 mg PO BIDAC 02/04/14 [History] Nitroglycerin 0.4 mg Tablet [Nitrostat 0.4 MG Tablet] 0.4 mg SL Q5MIN PRN MR X 3 PRN 08/01/16 [History] ALPRAZolam 1 MG [Xanax 1 mg] 1 mg PO BID 10/14/18 [History] Theophylline Anhydrous 300 mg PO BID 10/14/18 [History] Isosorbide Mononitrate 60 mg [Imdur 60MG] 60 mg PO DAILY 06/01/20 [History] Metoprolol Tartrate 25 mg [Lopressor 25MG Tab] 25 mg PO BID 06/01/20 [History] Rosuvastatin Calcium 20 mg PO HS 06/01/20 [History] Spironolactone 25 mg [Aldactone 25 MG] 12.5 mg PO DAILY 01/25/21 [History] Albuterol Sulfate [Proair Digihaler] 2 puffs IH Q6H PRN 03/24/21 [History] Budesonide/Glycopyr/Formoterol [Breztri Aerosphere Inhaler] 2 puffs IH BID 03/24/21 [History] Amlodipine Besylate 2.5 mg PO DAILY 06/12/21 [History] Furosemide 20 mg [Lasix 20 mg] 20 mg PO DAILY 06/12/21 [History] Pramipexole Di-HCl [Mirapex] 0.25 mg PO DAILY 06/12/21 [History] Sacubitril/Valsartan [Entresto 97 mg-103 mg Tablet] 2 each PO DAILY 06/12/21 [History] Prednisone 5 mg [Deltasone 5 mg] 5 mg PO DAILY 07/12/21 [History] Carboxymethylcellulose Sodium [Refresh Liquigel] 1 ml OP HS 09/25/21 [History] Latanoprost [Xalatan] 1 ml OP HS 09/25/21 [History] Propylene Glycol/Peg 400 [Lubricating Eye Drop] 15 ml OP QID 09/25/21 [History] Hx Tetanus, Diphtheria Vaccination/Date Given: No Hx Influenza Vaccination/Date Given: Yes Hx Pneumococcal Vaccination/Date Given: Yes Travel Risk - International Travel Have you traveled outside of the country in past 3 weeks: No - Coronavirus Screening Are you exhibiting any of the following symptoms?: Yes Symptoms: Shortness of Breath Close contact with a COVID-19 positive Pt in past 14-21 Days: No - Vaccine Status Have you recieved a Covid-19 vaccination: No - Review of Systems Constitutional: No Fever, No Chills Eyes: No Symptoms Ears, Nose, & Throat: No Symptoms Respiratory: Dyspnea, Dyspnea on Exertion (GUERRA), Wheezing, No Cough Cardiac: No Chest Pain, No Edema, No Syncope Abdominal/Gastrointestinal: No Abdominal Pain, No Nausea, No Vomiting, No Di arrhea Genitourinary Symptoms: No Dysuria Musculoskeletal: No Back Pain, No Neck Pain Skin: No Rash Neurological: No Dizziness, No Focal Weakness, No Sensory Changes Psychological: No Symptoms Endocrine: No Symptoms All Other Systems: Reviewed and Negative - Past Medical History Pertinent Past Medical History: Yes Neurological History: No Pertinent History ENT History: No Pertinent History Cardiac History: Aneurysm, Hypertension Respiratory History: COPD, Sleep Apnea Endocrine Medical History: Diabetes Type II Musculoskeletal History: No Pertinent History GI Medical History: No Pertinent History, GERD History: No Pertinent History Psycho-Social History: Anxiety Male Reproductive Disorders: No Pertinent History Other Medical History: 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 Pt also states he had an increase of SOB and chest pain that he has seen Dr. Mallory for and he has been put on nitro. PT wears 4L O2 AT ALL TIMES - Past Surgical History Past Surgical History: Yes Neuro Surgical History: No Pertinent History Cardiac: No Pertinent History Respiratory: Other Gastrointestinal: Hernia Repair Genitourinary: No Pertinent History Musculoskeletal: Orthopedic Surgery Male Surgical History: Vasectomy Other Surgical History: BACK SURGERY, and ear surgery and a left lung biopsy. 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, double hernia repair, - Social History Smoking Status: Former smoker How long have you smoked: 13 Exposure to second hand smoke: No Drug Use: none Patient Lives Alone: No - Nursing Vital Signs Nursing Vital Signs: Initial Vital Signs Temperature 98.9 F 09/25/21 14:43 Pulse Rate 108 H 09/25/21 14:43 Respiratory Rate 26 H 09/25/21 14:43 Blood Pressure 146/81 09/25/21 14:43 O2 Sat by Pulse Oximetry 96 09/25/21 14:43 Pain Scale Pain Intensity 0 - Physical Exam General Appearance: no apparent distress, alert Eye Exam: PERRL/EOMI Neck Exam: normal inspection, supple Respiratory Exam: diminished breath sounds, accessory muscle use, prolonged expirations, crackles/rales, rhonchi, wheezing Cardiovascular/Chest Exam: normal heart sounds, regular rate/rhythm Abdominal/Gastrointestinal Exam: soft, No tenderness, No distention, No mass Extremity Exam: non-tender, normal range of motion, normal inspection, no calf tenderness, no pedal edema Neurologic Exam: alert, oriented x 3, cooperative, deputy director II-XII nml as tested, s ensation nml, No motor deficits Skin Exam: normal color, warm, No dry SpO2 Interpretation: borderline oxygenation SpO2: 96 O2 Delivery: Nasal Cannula - Course Nursing assessment & vital signs reviewed: Yes EKG Interpreted by Me: Sinus Tach, Non-specific ST Changes - Radiology Exams Chest X-ray Interpretation: Reviewed by me Ordered Tests: Active Orders 24 hr Category Date Time Status EKG-ER Only STAT Care 09/25/21 14:46 Active Oxygen-ED Only Nasal Cannula 5 lpm Care 09/25/21 14:46 Active CHEST 1 VIEW (PORTABLE) Stat Exams 09/25/21 14:46 Taken BLOOD CULTURE Stat Lab 09/25/21 15:50 Ordered CBC W DIFF Stat Lab 09/25/21 15:10 Completed CMP Stat Lab 09/25/21 15:10 Completed MAGNESIUM Stat Lab 09/25/21 15:10 Completed NT PRO BNP Stat Lab 09/25/21 15:10 Completed TROPONIN Q3H Lab 09/25/21 15:10 Completed TROPONIN Q3H Lab 09/25/21 18:00 Ordered TROPONIN Q3H Lab 09/25/21 21:00 Ordered TROPONIN Q3H Lab 09/26/21 00:00 Ordered TROPONIN Q3H Lab 09/26/21 03:00 Ordered Respiratory Therapy Assessment DAILY RT 09/25/21 15:13 Active Medication Summary Generic Name Dose Route Start Last Admin Trade Name Freq PRN Reason Stop Dose Admin Sodium Chloride 1,000 mls @ 50 mls/hr 09/25/21 15:00 09/25/21 15:07 Sodium Chloride 0.9% 1000 Ml IV 10/25/21 14:59 50 mls/hr .Q20H FAHEEM Administration Discontinued Medications Generic Name Dose Route Start Last Admin Trade Name Freq PRN Reason Stop Dose Admin Albuterol/Ipratropium 3 ml 09/25/21 14:46 09/25/21 15:07 Ipratropium/Albuterol Sulfate 3 Ml Ampul.Neb IH 09/25/21 14:47 3 ml STAT ONE Administration Albuterol/Ipratropium Confirm 09/25/21 15:05 Ipratropium/Albuterol Sulfate 3 Ml Ampul.Neb Administered 09/25/21 15:06 Dose 3 ml IH .STK-MED ONE Methylprednisolone Sodium 0 mg 09/25/21 14:46 09/25/21 15:09 Succinate 125 mg/ Sterile IV 09/25/21 14:47 125 mg Water 2 ml STAT ONE Administration Furosemide 40 mg 09/25/21 14:46 09/25/21 15:09 Furosemide 40 Mg/4 Ml Vial IV 09/25/21 14:47 40 mg STAT ONE Administration Furosemide Confirm 09/25/21 14:59 Furosemide 40 Mg/4 Ml Vial Administered 09/25/21 15:00 Dose 40 mg .ROUTE .STK-MED ONE Ceftriaxone Sodium/Dextrose 1 g in 50 mls @ 100 mls/hr 09/25/21 14:46 09/25/21 15:09 Rocephin 1 Gm-D5w 50 Ml Bag IV 09/25/21 15:15 100 mls/hr STAT STA 100 mls/hr Administration Ceftriaxone Sodium/Dextrose Confirm 09/25/21 14:59 Rocephin 1 Gm-D5w 50 Ml Bag Administered 09/25/21 15:00 Dose 1 g in 50 mls @ ud IV .STK-MED ONE Lorazepam 2 mg 09/25/21 14:46 09/25/21 15:09 Lorazepam 2 Mg/1 Ml 2 Mg Vial IV 09/25/21 14:47 2 mg STAT ONE Administration Lorazepam Confirm 09/25/21 14:59 Lorazepam 2 Mg/1 Ml 2 Mg Vial Administered 09/25/21 15:00 Dose 2 mg .ROUTE .STK-MED ONE Methylprednisolone Sodium Succinate Confirm 09/25/21 14:59 Methylprednis Sod Succ 125 Mg/2 Ml Vial Administered 09/25/21 15:00 Dose 125 mg .ROUTE .STK-MED ONE Sterile Water Confirm 09/25/21 15:00 Water For Injection,Sterile 10 Ml Vial Administered 09/25/21 15:01 Dose 10 ml IJ .STK-MED ONE Lab/Rad Data: Laboratory Result Diagrams 09/25/21 15:10 09/25/21 15:10 Laboratory Results 09/25/21 09/25/21 09/25/21 Range/Units 15:10 15:10 15:10 WBC 19.7 H (4.0-10.5) K/mm3 RBC 5.53 (4.1-5.6) M/mm3 Hgb 14.9 (12.5-18.0) gm/dl Hct 46.5 (42-50) % MCV 84.1 (78-100) fl MCH 26.9 (26-32) pg MCHC 32.0 (32-36) g/dl RDW 16.8 H (11.5-14.0) % Plt Count 304 (150-450) K/mm3 MPV 9.8 (7.5-11.0) fl Gran % 91.7 H (36.0-66.0) % Eos # (Auto) 0.02 (0-0.5) Absolute Lymphs (auto) 0.94 L (1.0-4.6) Absolute Monos (auto) 0.64 (0.0-1.3) Lymphocytes % 4.8 L (24.0-44.0) % Monocytes % 3.2 (0.0-12.0) % Eosinophils % 0.1 (0.00-5.0) % Basophils % 0.2 (0.0-0.4) % Absolute Granulocytes 18.08 H (1.4-6.9) Basophils # 0.03 (0-0.4) Sodium 137 (137-145) mmol/L Potassium 4.6 (3.5-5.1) mmol/L Chloride 99 (98-107) mmol/L Carbon Dioxide 28 (22-30) mmol/L Anion Gap 14.8 (5-15) MEQ/L BUN 13 (9-20) mg/dL Creatinine 0.65 L (0.66-1.25) mg/dL Estimated GFR > 60.0 ML/MIN Glucose 116 H (74-106) mg/dL Calcium 9.8 (8.4-10.2) mg/dL Magnesium 1.9 (1.6-2.3) mg/dL Total Bilirubin 1.70 H (0.2-1.3) mg/dL AST 29 (17-59) U/L ALT 19 (0-50) U/L Alkaline Phosphatase 62 (38-126) U/L Troponin I < 0.012 (0.000-0.034) ng/mL NT-Pro-B Natriuret Pep 381 (0-900) pg/mL Serum Total Protein 7.4 (6.3-8.2) g/dL Albumin 4.5 (3.5-5.0) g/dL - Progress Progress: improved Air Movement: fair Blood Culture(s) Obtained: Yes Antibiotics given: Yes Discussed with : Aron Jensen Will see patient in: hospital (observation) Counseled pt/family regarding: lab results, diagnosis, need for follow-up, rad results - Departure Departure Disposition: Observation Clinical Impression: COPD exacerbation Condition: Fair Critical Care Time: Yes Critical Care Time(excluding separately billable procedures): Critical 30-74 mins Referrals: DAV SEALS DO [Primary Care Provider] - Follow up/PCP as directed Instructions: Chronic Obstructive Pulmonary Disease
[2021-09-25 15:19] LABS: Absolute Neutrophil Ct (ANC) 18.08 (1.4-6.9); Basophil (Absolute #) 0.03 (0-0.4); Eosinophil % 0.1 % (0.00-5.0); Eosinophil (Absolute #) 0.02 (0-0.5); Hematocrit 46.5 % (42-50); Hemoglobin 14.9 gm/dl (12.5-18.0); Lymphocyte (Absolute #) 0.94 (1.0-4.6); Lymphocytes % 4.8 % (24.0-44.0); Mean Cell Volume 84.1 fl (78-100); Mean Corpuscular Hemoglobin 26.9 pg (26-32); Mean Platelet Volume 9.8 fl (7.5-11.0); Monocyte (Absolute #) 0.64 (0.0-1.3); Monocytes % 3.2 % (0.0-12.0); Neutrophil % 91.7 % (36.0-66.0); Platelet Count 304 K/mm3 (150-450); Red Blood Count 5.53 M/mm3 (4.1-5.6); Red Cell Distribution Width 16.8 % (11.5-14.0); White Blood Count 19.7 K/mm3 (4.0-10.5)
[2021-09-25 15:38] LABS: ALBUMIN 4.5 g/dL (3.5-5.0); ALKALINE PHOSPHATASE 62 U/L (38-126); ANION GAP 14.8 MEQ/L (5-15); BLOOD UREA NITROGEN 13 mg/dL (9-20); CHLORIDE 99 mmol/L (98-107); Calcium 9.8 mg/dL (8.4-10.2); Carbon Dioxide 28 mmol/L (22-30); Creatinine 1 0.65 mg/dL (0.66-1.25); EST GLOMERULAR FILTRATION RATE > 60.0 ML/MIN; Glucose 116 mg/dL (74-106); MAGNESIUM 1.9 mg/dL (1.6-2.3); NT PRO BNP 381 pg/mL (0-900); Potassium 4.6 mmol/L (3.5-5.1); SGOT/AST 29 U/L (17-59); SGPT/ALT 19 U/L (0-50); SODIUM 137 mmol/L (137-145); Total Protein 7.4 g/dL (6.3-8.2)
[2021-09-25 16:42] LABS: INFLUENZA A NEGATIVE (NEGATIVE); INFLUENZA B NEGATIVE (NEGATIVE); RESPIRATORY SYNCTIAL VIRUS NEGATIVE (Negative); SARS-CoV-2 Xpert Express NEGATIVE (NEGATIVE)
[2021-09-25] MEDS ORDERED: HUMULIN R SQ PRN (17:20)
[2021-09-25] MEDS: PROVENTIL 2.5 MG/3 ML NEB IH SCH (18:30)
[2021-09-25] MEDS: solu-MEDROL 60 MG, Sterile H2O 10 ml 2 ML IV SCH ×2 (19:50)
--- NOTE | 2021-09-25 20:03 | XRAY ---
Indication: Cough and short of breath. Comparison: July 26, 2021. Portable chest again demonstrates COPD, bibasilar subsegmental atelectasis/scarring, and left midlung suture material. Heart not enlarged. Bony thorax intact again with mild osteopenia and degenerative changes. Impression: Continued nonacute chest with chronic features.
[2021-09-25] MEDS: Pepcid 20 MG VIAL IV SCH (21:29)
[2021-09-25] MEDS: Lopressor 25MG Tab PO SCH (21:29)
[2021-09-26] MEDS: PROVENTIL 2.5 MG/3 ML NEB IH SCH ×4 (00:06→18:59)
[2021-09-26] MEDS ORDERED: Sterile H2O 10 ml IJ ONE ×2 (00:53→06:46)
[2021-09-26] MEDS ORDERED: solu-MEDROL ONE ×2 (00:53→06:46)
[2021-09-26] MEDS: solu-MEDROL 60 MG, Sterile H2O 10 ml 2 ML IV SCH ×8 (00:58→18:18)
[2021-09-26 03:24] LABS: Hematocrit 40.4 % (42-50); Hemoglobin 13.1 gm/dl (12.5-18.0); Mean Cell Volume 83.6 fl (78-100); Mean Corpuscular Hemoglobin 27.1 pg (26-32); Mean Corpuscular Hgb Concent. 32.4 g/dl (32-36); Mean Platelet Volume 9.8 fl (7.5-11.0); Platelet Count 250 K/mm3 (150-450); Red Blood Count 4.83 M/mm3 (4.1-5.6); Red Cell Distribution Width 16.4 % (11.5-14.0); White Blood Count 16.2 K/mm3 (4.0-10.5)
[2021-09-26 03:35] LABS: ALBUMIN 3.5 g/dL (3.5-5.0); ALKALINE PHOSPHATASE 43 U/L (38-126); ANION GAP 9.3 MEQ/L (5-15); BLOOD UREA NITROGEN 13 mg/dL (9-20); CHLORIDE 99 mmol/L (98-107); Carbon Dioxide 30 mmol/L (22-30); Creatinine 1 0.57 mg/dL (0.66-1.25); EST GLOMERULAR FILTRATION RATE > 60.0 ML/MIN; Glucose 113 mg/dL (74-106); Potassium 4.4 mmol/L (3.5-5.1); SGOT/AST 25 U/L (17-59); SGPT/ALT 16 U/L (0-50); SODIUM 134 mmol/L (137-145)
[2021-09-26] MEDS ORDERED: Advair Hfa 230/21 Mcg COMMON CANISTER IH SCH (07:00)
[2021-09-26] MEDS: Lopressor 25MG Tab PO SCH ×2 (09:16→21:43)
[2021-09-26] MEDS: Pepcid 20 MG VIAL IV SCH ×2 (09:16→21:42)
[2021-09-26] MEDS: ENOXAPARIN SODIUM SQ SCH (09:16)
[2021-09-26] MEDS: LEVOFLOXACIN 750MG/150ML D5W 750 MG/150 ML BAG IV SCH (09:16)
--- NOTE | 2021-09-26 11:27 | PCM.HP ---
History of Present Illness - Chief Complaint Chief Complaint: COPD Exacerbation History of Present Illness: is a 75 year old male with oxygen dependant COPD and CHF who presented to ER with difficulty breathing. ER work up - WBC was 19,700,BNP was 381 and CXR did not show any acute process. Patient was admitted with COPD exacerbation O2 at 6l/NC,started on IV solumedrol and Levaquin. He follows with Dr Moreno,Plasticator and Dr Jc,Truck Switcher. He denies chest pain and serial troponins were not elevated. - Review of Systems Constitutional: Lethargy Eyes: No Symptoms Ears, Nose, & Throat: No Symptoms Respiratory: Cough, Short Of Breath, Wheezing Cardiac: No Symptoms Abdominal/Gastrointestinal: No Symptoms Genitourinary Symptoms: No Symptoms Musculoskeletal: Neck Pain Skin: No Symptoms Neurological: No Symptoms Psychological: No Symptoms Endocrine: No Symptoms Medications & Allergies Home Medications: Home Medication List Albuterol 2.5 mg/3 ml Neb [Proventil 2.5 mg/3 ml Neb] 1 neb IH Q6H PRN 02/04/14 [History Confirmed 09/25/21] Aspirin 81 mg PO DAILY 02/04/14 [History Confirmed 09/25/21] Omeprazole 20 MG [Prilosec 20 mg] 20 mg PO BIDAC 02/04/14 [History Confirmed 09/25/21] Nitroglycerin 0.4 mg Tablet [Nitrostat 0.4 MG Tablet] 0.4 mg SL Q5MIN PRN MR X 3 PRN 08/01/16 [History Confirmed 09/25/21] ALPRAZolam 1 MG [Xanax 1 mg] 1 mg PO BID 10/14/18 [History Confirmed 09/25/21] Theophylline Anhydrous 300 mg PO BID 10/14/18 [History Confirmed 09/25/21] Isosorbide Mononitrate 60 mg [Imdur 60MG] 60 mg PO DAILY 06/01/20 [History Confirmed 09/25/21] Metoprolol Tartrate 25 mg [Lopressor 25MG Tab] 25 mg PO BID 06/01/20 [History Confirmed 09/25/21] Rosuvastatin Calcium 20 mg PO HS 11/03/20 [History Confirmed 09/25/21] Spironolactone 25 mg [Aldactone 25 MG] 12.5 mg PO DAILY 01/25/21 [History Confirmed 09/25/21] Albuterol Sulfate [Proair Digihaler] 2 puffs IH Q6H PRN 03/24/21 [History Confirmed 09/25/21] Budesonide/Glycopyr/Formoterol [Breztri Aerosphere Inhaler] 2 puffs IH BID 03/24/21 [History Confirmed 09/25/21] Amlodipine Besylate 2.5 mg PO DAILY 06/12/21 [History Confirmed 09/25/21] Furosemide 20 mg [Lasix 20 mg] 20 mg PO DAILY 06/12/21 [History Confirmed 09/25/21] Pramipexole Di-HCl [Mirapex] 0.25 mg PO DAILY 06/12/21 [History Confirmed 09/25/21] Sacubitril/Valsartan [Entresto 97 mg-103 mg Tablet] 1 each PO BID 06/12/21 [History Confirmed 09/26/21] Prednisone 5 mg [Deltasone 5 mg] 5 mg PO DAILY 07/12/21 [History Confirmed 09/25/21] Carboxymethylcellulose Sodium [Refresh Liquigel] 1 ml OP HS 09/25/21 [History Confirmed 09/25/21] Latanoprost [Xalatan] 1 ml OP HS 09/25/21 [History Confirmed 09/25/21] Propylene Glycol/Peg 400 [Lubricating Eye Drop] 15 ml OP QID 09/25/21 [History Confirmed 09/25/21] Levofloxacin [Levofloxacin 500 MG Tablet] 500 mg PO DAILY #3 tablet 09/27/21 [Rx] Prednisone 10 mg [Deltasone 10 mg] 10 mg PO TID 10 Days tablet 09/27/21 [Rx] Sucralfate 1 gm [Carafate 1 GM] 1 g PO ACHS #30 tablet 09/27/21 [Rx] Allergies/Adverse Reactions: Allergies Allergy/AdvReac Type Severity Reaction Status Date / Time nicotine [From 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 Pt also states he had an increase of SOB and chest pain that he has seen Dr. Mallory for and he has been put on nitro. PT wears 4L O2 AT ALL TIMES - Past Surgical History Past Surgical History: Yes Neuro Surgical History: No Pertinent History Cardiac History: No Pertinent History Respiratory Surgery: Other GI Surgical History: Hernia Repair Genitourinary Surgical Hx: No Pertinent History Musculskeletal Surgical Hx: Orthopedic Surgery Male Surgical History: Vasectomy Other Surgical History: BACK SURGERY, and ear surgery and a left lung biopsy. 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, double hernia repair, - Social History Smoking Status: Former smoker How long have you smoked: 13 Exposure to second hand smoke: No Alcohol: None Drug Use: none - Physical Exam Vital Signs: Vital Signs - 24 hr Temp Pulse Resp BP Pulse Ox 09/26/21 07:32 112 H 28 H 85 L 09/26/21 07:30 98.2 F 82 22 131/75 95 09/26/21 04:15 97.8 F 81 22 118/70 94 L 09/26/21 00:07 76 26 H 92 L 09/25/21 23:57 98.0 F 73 26 H 117/62 92 L 09/25/21 19:33 98.4 F 119 H 32 H 105/63 92 L 09/25/21 18:38 124 H 32 H 87 L 09/25/21 17:35 98.6 F 118 H 26 H 118/73 90 L 09/25/21 16:00 123/77 09/25/21 15:59 96 09/25/21 15:38 106 H 26 H 128/86 92 L 09/25/21 15:14 100 H 26 H 94 L 09/25/21 14:43 98.9 F 108 H 29 H 146/81 96 General Appearance: no apparent distress, other (on O2 6L/N/C) Neurologic Exam: alert, oriented x 3, cooperative, normal mood/affect, nml cereb ellar function, nml station & gait Eye Exam: eyes nml inspection Ears, Nose, Throat Exam: normal ENT inspection Neck Exam: other (muscle spasmpost cervical and traps) Respiratory Exam: diminished breath sounds Cardiovascular Exam: regular rate/rhythm Gastrointestinal/Abdomen Exam: soft, normal bowel sounds (nontender,mildly distended) Rectal Exam: not done Back Exam: normal inspection Extremity Exam: normal inspection Skin Exam: normal color, warm, dry Results - Labs Lab/Micro Results: Lab Results-Last 24 Hours 09/25/21 09/25/21 09/25/21 Range/Units 15:10 15:10 15:10 WBC 19.7 H (4.0-10.5) K/mm3 RBC 5.53 (4.1-5.6) M/mm3 Hgb 14.9 (12.5-18.0) gm/dl Hct 46.5 (42-50) % MCV 84.1 (78-100) fl MCH 26.9 (26-32) pg MCHC 32.0 (32-36) g/dl RDW 16.8 H (11.5-14.0) % Plt Count 304 (150-450) K/mm3 MPV 9.8 (7.5-11.0) fl Gran % 91.7 H (36.0-66.0) % Eos # (Auto) 0.02 (0-0.5) Absolute Lymphs (auto) 0.94 L (1.0-4.6) Absolute Monos (auto) 0.64 (0.0-1.3) Lymphocytes % 4.8 L (24.0-44.0) % Monocytes % 3.2 (0.0-12.0) % Eosinophils % 0.1 (0.00-5.0) % Basophils % 0.2 (0.0-0.4) % Absolute Granulocytes 18.08 H (1.4-6.9) Basophils # 0.03 (0-0.4) Sodium 137 (137-145) mmol/L Potassium 4.6 (3.5-5.1) mmol/L Chloride 99 (98-107) mmol/L Carbon Dioxide 28 (22-30) mmol/L Anion Gap 14.8 (5-15) MEQ/L BUN 13 (9-20) mg/dL Creatinine 0.65 L (0.66-1.25) mg/dL Estimated GFR > 60.0 ML/MIN Glucose 116 H (74-106) mg/dL POC Glucometer (74 to 106) mg/dL Calcium 9.8 (8.4-10.2) mg/dL Magnesium 1.9 (1.6-2.3) mg/dL Total Bilirubin 1.70 H (0.2-1.3) mg/dL AST 29 (17-59) U/L ALT 19 (0-50) U/L Alkaline Phosphatase 62 (38-126) U/L Troponin I < 0.012 (0.000-0.034) ng/mL NT-Pro-B Natriuret Pep 381 (0-900) pg/mL Serum Total Protein 7.4 (6.3-8.2) g/dL Albumin 4.5 (3.5-5.0) g/dL Influenza Type A Ag (NEGATIVE) Influenza Type B Ag (NEGATIVE) RSV (PCR) (Negative) SARS-CoV-2 (PCR) (NEGATIVE) 09/25/21 09/25/21 09/25/21 Range/Units 15:53 18:42 20:44 WBC (4.0-10.5) K/mm3 RBC (4.1-5.6) M/mm3 Hgb (12.5-18.0) gm/dl Hct (42-50) % MCV (78-100) fl MCH (26-32) pg MCHC (32-36) g/dl RDW (11.5-14.0) % Plt Count (150-450) K/mm3 MPV (7.5-11.0) fl Gran % (36.0-66.0) % Eos # (Auto) (0-0.5) Absolute Lymphs (auto) (1.0-4.6) Absolute Monos (auto) (0.0-1.3) Lymphocytes % (24.0-44.0) % Monocytes % (0.0-12.0) % Eosinophils % (0.00-5.0) % Basophils % (0.0-0.4) % Absolute Granulocytes (1.4-6.9) Basophils # (0-0.4) Sodium (137-145) mmol/L Potassium (3.5-5.1) mmol/L Chloride (98-107) mmol/L Carbon Dioxide (22-30) mmol/L Anion Gap (5-15) MEQ/L BUN (9-20) mg/dL Creatinine (0.66-1.25) mg/dL Estimated GFR ML/MIN Glucose (74-106) mg/dL POC Glucometer 355 H (74 to 106) mg/dL Calcium (8.4-10.2) mg/dL Magnesium (1.6-2.3) mg/dL Total Bilirubin (0.2-1.3) mg/dL AST (17-59) U/L ALT (0-50) U/L Alkaline Phosphatase (38-126) U/L Troponin I < 0.012 (0.000-0.034) ng/mL NT-Pro-B Natriuret Pep (0-900) pg/mL Serum Total Protein (6.3-8.2) g/dL Albumin (3.5-5.0) g/dL Influenza Type A Ag NEGATIVE (NEGATIVE) Influenza Type B Ag NEGATIVE (NEGATIVE) RSV (PCR) NEGATIVE (Negative) SARS-CoV-2 (PCR) NEGATIVE (NEGATIVE) 09/25/21 09/26/21 09/26/21 Range/Units 21:00 03:00 03:00 WBC 16.2 H (4.0-10.5) K/mm3 RBC 4.83 (4.1-5.6) M/mm3 Hgb 13.1 (12.5-18.0) gm/dl Hct 40.4 L (42-50) % MCV 83.6 (78-100) fl MCH 27.1 (26-32) pg MCHC 32.4 (32-36) g/dl RDW 16.4 H (11.5-14.0) % Plt Count 250 (150-450) K/mm3 MPV 9.8 (7.5-11.0) fl Gran % (36.0-66.0) % Eos # (Auto) (0-0.5) Absolute Lymphs (auto) (1.0-4.6) Absolute Monos (auto) (0.0-1.3) Lymphocytes % (24.0-44.0) % Monocytes % (0.0-12.0) % Eosinophils % (0.00-5.0) % Basophils % (0.0-0.4) % Absolute Granulocytes (1.4-6.9) Basophils # (0-0.4) Sodium (137-145) mmol/L Potassium (3.5-5.1) mmol/L Chloride (98-107) mmol/L Carbon Dioxide (22-30) mmol/L Anion Gap (5-15) MEQ/L BUN (9-20) mg/dL Creatinine (0.66-1.25) mg/dL Estimated GFR ML/MIN Glucose (74-106) mg/dL POC Glucometer (74 to 106) mg/dL Calcium (8.4-10.2) mg/dL Magnesium (1.6-2.3) mg/dL Total Bilirubin (0.2-1.3) mg/dL AST (17-59) U/L ALT (0-50) U/L Alkaline Phosphatase (38-126) U/L Troponin I < 0.012 < 0.012 (0.000-0.034) ng/mL NT-Pro-B Natriuret Pep (0-900) pg/mL Serum Total Protein (6.3-8.2) g/dL Albumin (3.5-5.0) g/dL Influenza Type A Ag (NEGATIVE) Influenza Type B Ag (NEGATIVE) RSV (PCR) (Negative) SARS-CoV-2 (PCR) (NEGATIVE) 09/26/21 09/26/21 Range/Units 03:00 07:13 WBC (4.0-10.5) K/mm3 RBC (4.1-5.6) M/mm3 Hgb (12.5-18.0) gm/dl Hct (42-50) % MCV (78-100) fl MCH (26-32) pg MCHC (32-36) g/dl RDW (11.5-14.0) % Plt Count (150-450) K/mm3 MPV (7.5-11.0) fl Gran % (36.0-66.0) % Eos # (Auto) (0-0.5) Absolute Lymphs (auto) (1.0-4.6) Absolute Monos (auto) (0.0-1.3) Lymphocytes % (24.0-44.0) % Monocytes % (0.0-12.0) % Eosinophils % (0.00-5.0) % Basophils % (0.0-0.4) % Absolute Granulocytes (1.4-6.9) Basophils # (0-0.4) Sodium 134 L (137-145) mmol/L Potassium 4.4 (3.5-5.1) mmol/L Chloride 99 (98-107) mmol/L Carbon Dioxide 30 (22-30) mmol/L Anion Gap 9.3 (5-15) MEQ/L BUN 13 (9-20) mg/dL Creatinine 0.57 L (0.66-1.25) mg/dL Estimated GFR > 60.0 ML/MIN Glucose 113 H (74-106) mg/dL POC Glucometer 133 H (74 to 106) mg/dL Calcium 9.0 (8.4-10.2) mg/dL Magnesium (1.6-2.3) mg/dL Total Bilirubin 1.20 (0.2-1.3) mg/dL AST 25 (17-59) U/L ALT 16 (0-50) U/L Alkaline Phosphatase 43 (38-126) U/L Troponin I (0.000-0.034) ng/mL NT-Pro-B Natriuret Pep (0-900) pg/mL Serum Total Protein 6.0 L (6.3-8.2) g/dL Albumin 3.5 (3.5-5.0) g/dL Influenza Type A Ag (NEGATIVE) Influenza Type B Ag (NEGATIVE) RSV (PCR) (Negative) SARS-CoV-2 (PCR) (NEGATIVE) Accuchecks Date 09/26/21 Time 07:00 - Radiology Impressions Radiology Exams & Impressions: Radiology Procedures Category Date Time Status CHEST 1 VIEW (PORTABLE) Stat Exams 09/25/21 14:46 Completed - Other Procedures and Tests Respiratory Therapy 09/25/21 15:13 Respiratory Therapy Assessment DAILY 09/25/21 17:20 Oxygen Nasal Cannula 5 lpm Assessment/Plan (1) COPD exacerbation Current Visit: Yes Status: Acute Assessment & Plan: due to bacterial bronchitis Code(s): J44.1 - CHRONIC OBSTRUCTIVE PULMONARY DISEASE W (ACUTE) EXACERBATION (2) Leukocytosis Current Visit: No Status: Resolved Qualifiers: Leukocytosis type: bandemia Qualified Code(s): D72.825 - Bandemia Assessment & Plan: responded well to IV Levaquin Code(s): D72.829 - ELEVATED WHITE BLOOD CELL COUNT, UNSPECIFIED (3) CHF (congestive heart failure) Current Visit: No Status: Chronic Qualifiers: Heart failure chronicity: chronic Assessment & Plan: Patient is not fluid overloaded,CHF stable on present meds Code(s): I50.9 - HEART FAILURE, UNSPECIFIED
[2021-09-26] MEDS ORDERED: NON-FORMULARY ITEM (Albuterol Sulfate [Proair Digihaler] 90 MCG Aer.Pw.Bas) IH PRN (12:43)
[2021-09-26] MEDS ORDERED: Nitrostat 0.4 MG Tablet SL PRN (12:43)
[2021-09-26] MEDS ORDERED: VENTOLIN COMMON CANISTER IH PRN (12:58)
[2021-09-26] MEDS ORDERED: PROPYLENE GLYCOL OP SCH (13:00)
[2021-09-26] MEDS ORDERED: PEG OP SCH (13:00)
[2021-09-26] MEDS ORDERED: DELTASONE 5 MG PO SCH (13:00)
[2021-09-26] MEDS: ECOTRIN 81 MG PO SCH (13:44)
[2021-09-26] MEDS: XANAX 1 MG PO SCH ×2 (13:45→21:42)
[2021-09-26] MEDS: Mirapex 0.5 MG Tablet PO SCH (13:45)
[2021-09-26] MEDS: Aldactone 25 MG PO SCH (13:45)
[2021-09-26] MEDS: Imdur 60MG PO SCH (13:45)
[2021-09-26] MEDS: NORVASC 5 MG PO SCH (13:47)
[2021-09-26] MEDS: ENTRESTO 49 MG-51 MG TABLET PO SCH ×3 (13:47→21:54)
[2021-09-26] MEDS: THEOPHYLLINE ER 24HR PO SCH ×2 (13:48→21:45)
[2021-09-26] MEDS: Artificial Tears 15 ML OP SCH ×3 (13:50→21:53)
[2021-09-26] MEDS: LASIX 20 MG PO SCH (13:50)
[2021-09-26] MEDS: Protonix 40MG Tablet PO SCH (16:24)
[2021-09-26] MEDS ORDERED: NON-FORMULARY ITEM (Omeprazole 20 Mg [Prilosec 20 Mg] 20 MG Capsule.Dr) PO SCH (16:30)
[2021-09-26] MEDS ORDERED: THEOPHYLLINE ANHYDROUS 300 MG PO SCH (22:00)
[2021-09-26] MEDS ORDERED: Xalatan OP SCH (22:00)
[2021-09-26] MEDS ORDERED: CARBOXYMETHYLCELLULOSE SODIUM OP SCH (22:00)
[2021-09-26] MEDS ORDERED: ZOCOR 20MG PO SCH (22:00)
[2021-09-26] MEDS ORDERED: NON-FORMULARY ITEM (Rosuvastatin Calcium [Rosuvastatin Calcium] 20 MG Tablet) PO SCH (22:00)
[2021-09-27] MEDS ORDERED: solu-MEDROL ONE (00:05)
[2021-09-27] MEDS: solu-MEDROL 60 MG, Sterile H2O 10 ml 2 ML IV SCH ×6 (00:12→13:35)
[2021-09-27] MEDS: PROVENTIL 2.5 MG/3 ML NEB IH SCH ×3 (04:47→13:06)
[2021-09-27] MEDS: Protonix 40MG Tablet PO SCH (07:58)
[2021-09-27] MEDS ORDERED: NON-FORMULARY ITEM (Aspirin [Aspirin] 81 MG Tablet) PO SCH (10:00)
[2021-09-27] MEDS ORDERED: NON-FORMULARY ITEM (Sacubitril/Valsartan [Entresto 97 Mg-103 Mg Tablet] 1 EACH Tablet) PO SCH (10:00)
[2021-09-27] MEDS ORDERED: NON-FORMULARY ITEM (Amlodipine Besylate [Amlodipine Besylate] 2.5 MG Tablet) PO SCH (10:00)
[2021-09-27] MEDS ORDERED: PRAMIPEXOLE DI HCL 0.25 MG PO SCH (10:00)
[2021-09-27] MEDS: LEVOFLOXACIN 750MG/150ML D5W 750 MG/150 ML BAG IV SCH (10:14)
[2021-09-27] MEDS: ENOXAPARIN SODIUM SQ SCH (10:14)
[2021-09-27] MEDS: Mirapex 0.5 MG Tablet PO SCH (10:15)
[2021-09-27] MEDS: NORVASC 5 MG PO SCH (10:15)
[2021-09-27] MEDS: Artificial Tears 15 ML OP SCH ×2 (10:15→13:36)
[2021-09-27] MEDS: XANAX 1 MG PO SCH (10:16)
[2021-09-27] MEDS: Imdur 60MG PO SCH (10:16)
[2021-09-27] MEDS: Lopressor 25MG Tab PO SCH (10:16)
[2021-09-27] MEDS: Pepcid 20 MG VIAL IV SCH (10:16)
[2021-09-27] MEDS: Aldactone 25 MG PO SCH (10:16)
[2021-09-27] MEDS: ECOTRIN 81 MG PO SCH (10:16)
[2021-09-27] MEDS: ENTRESTO 49 MG-51 MG TABLET PO SCH (10:16)
[2021-09-27] MEDS: LASIX 20 MG PO SCH (10:16)
[2021-09-27] MEDS: THEOPHYLLINE ER 24HR PO SCH (10:17)
[2021-09-27 11:14] LABS: Hematocrit 37.8 % (42-50); Mean Cell Volume 84.8 fl (78-100); Mean Corpuscular Hemoglobin 26.9 pg (26-32); Mean Corpuscular Hgb Concent. 31.7 g/dl (32-36); Mean Platelet Volume 9.3 fl (7.5-11.0); Platelet Count 256 K/mm3 (150-450); Red Blood Count 4.46 M/mm3 (4.1-5.6); Red Cell Distribution Width 16.3 % (11.5-14.0); White Blood Count 10.9 K/mm3 (4.0-10.5)
[2021-09-27 11:30] VITALS: BP 98/64
[2021-09-27 11:39] LABS: ALBUMIN 3.5 g/dL (3.5-5.0); ALKALINE PHOSPHATASE 39 U/L (38-126); ANION GAP 7.3 MEQ/L (5-15); BLOOD UREA NITROGEN 13 mg/dL (9-20); CHLORIDE 99 mmol/L (98-107); Calcium 9.2 mg/dL (8.4-10.2); Carbon Dioxide 33 mmol/L (22-30); Creatinine 1 0.56 mg/dL (0.66-1.25); EST GLOMERULAR FILTRATION RATE > 60.0 ML/MIN; Glucose 151 mg/dL (74-106); Potassium 3.7 mmol/L (3.5-5.1); SGOT/AST 22 U/L (17-59); SGPT/ALT 16 U/L (0-50); SODIUM 136 mmol/L (137-145); Total Protein 6.1 g/dL (6.3-8.2)
[2021-09-27 13:08] VITALS: PULSE 76; O2SAT 93
--- NOTE | 2021-09-27 15:14 | PCM.DCORD ---
- Discharge Disposition: Home, Self-Care Condition: Fair Prescriptions: New Sucralfate 1 gm [Carafate 1 GM] 1 g PO ACHS #30 tablet Prednisone 10 mg [Deltasone 10 mg] 10 mg PO TID 10 Days tablet Levofloxacin [Levofloxacin 500 MG Tablet] 500 mg PO DAILY #3 tablet Continue Omeprazole 20 MG [Prilosec 20 mg] 20 mg PO BIDAC Albuterol 2.5 mg/3 ml Neb [Proventil 2.5 mg/3 ml Neb] 1 neb IH Q6H PRN PRN Reason: sob Aspirin 81 mg PO DAILY Nitroglycerin 0.4 mg Tablet [Nitrostat 0.4 MG Tablet] 0.4 mg SL Q5MIN PRN MR X 3 PRN PRN Reason: Chest Pain ALPRAZolam 1 MG [Xanax 1 mg] 1 mg PO BID Theophylline Anhydrous 300 mg PO BID Isosorbide Mononitrate 60 mg [Imdur 60MG] 60 mg PO DAILY Metoprolol Tartrate 25 mg [Lopressor 25MG Tab] 25 mg PO BID Rosuvastatin Calcium 20 mg PO HS Spironolactone 25 mg [Aldactone 25 MG] 12.5 mg PO DAILY Budesonide/Glycopyr/Formoterol [Breztri Aerosphere Inhaler] 2 puffs IH BID Albuterol Sulfate [Proair Digihaler] 2 puffs IH Q6H PRN PRN Reason: sob Pramipexole Di-HCl [Mirapex] 0.25 mg PO DAILY Sacubitril/Valsartan [Entresto 97 mg-103 mg Tablet] 1 each PO BID Furosemide 20 mg [Lasix 20 mg] 20 mg PO DAILY Amlodipine Besylate 2.5 mg PO DAILY Prednisone 5 mg [Deltasone 5 mg] 5 mg PO DAILY Propylene Glycol/Peg 400 [Lubricating Eye Drop] 15 ml OP QID Latanoprost [Xalatan] 1 ml OP HS Carboxymethylcellulose Sodium [Refresh Liquigel] 1 ml OP HS Instructions: Chronic Obstructive Pulmonary Disease (COPD) (DC) Follow up with: ANGÉLICA STEIN [Family Provider] - 12/13/21 2:30 pm SAYDA YOUNG [CONSULTING PHYSICIAN] - 10/12/21 12:30 pm (at [facility] ) DAV SEALS DO [Primary Care Provider] - 10/06/21 10:00 am Forms: Discharge Instructions
== END 2021-09-27 15:40 | disposition home or self-care (01) ==
LOC: ED 14:37 → MED SURG 17:14
PROVIDERS: ADMIT Family Medicine; ATTEND Family Medicine
DX: J44.1 Chronic obstructive pulmonary disease with (acute) exacerbation (principal); D72.829 Elevated white blood cell count, unspecified; I11.0 Hypertensive heart disease with heart failure; I50.9 Heart failure, unspecified; E11.9 Type 2 diabetes mellitus without complications; Z99.81 Dependence on supplemental oxygen; Z79.899 Other long term (current) drug therapy; Z20.828 Contact with and (suspected) exposure to other viral communicable diseases
CPT/HCPCS: 0241U; 36415; 71045; 80053; 82947; 83735; 83880; 84484; 85025; 85027; 93005; 93268; 94150; 94640; 94760; 96365; 96374; 96375; 99285; 99291; G0378; J0696; J1650; J1815; J1940; J1956; J2060; J2930; J7609; A9270-GY

== ENCOUNTER 2021-11-10 21:46 | Observation (INO) | payer MEDICARE ==
[2021-11-10] MEDS ORDERED: Zithromax 500 MG/ 250 ML NaCl Premix 500 MG/250 ML IVPB IV STA (22:00)
[2021-11-10] MEDS ORDERED: solu-MEDROL 125 MG, Sterile H2O 10 ml 2 ML IV ONE ×2 (22:00)
[2021-11-10] MEDS ORDERED: DUONEB 0.5-3 MG/3 ml Neb IH ONE (22:00)
[2021-11-10] MEDS ORDERED: ROCEPHIN 2 Gm-D5w 50ML BAG** 2 G/50 ML IVPB IV STA (22:02)
--- NOTE | 2021-11-10 22:03 | ERPHSYRPT ---
- History of Present Illness Time Seen by Provider: 11/10/21 21:58 Source: patient Exam Limitations: no limitations Physician History: Patient is a 76-year-old male with a history of COPD presents to our ED via EMS for evaluation of progressive shortness of breath, cough productive of green phlegm and hypoxia. EMS reports that patient was hypoxic down to the mid 70s up on their arrival. Patient states he has been experiencing progressive shortness of breath and cough x3 days. Patient notified his primary care doctor. He was given a prescription for a Z-Joseph. Patient has been taking a Z-Joseph medication however states that this has not been helpful. Patient normally requires 3 to 4 L nasal cannula at home 24 hours/day. Patient's oxygen requirement increased. No associated chest pain. No nausea vomiting or diaphoresis. Symptoms are progressive. Symptoms are moderate in intensity. Activity worsens symptomology. Patient voices no other complaints or concerns at this time. Timing/Duration: day(s) (3 days) Activities at Onset: none Severity of Dyspnea-Max: moderate Severity of Dyspnea-Current: moderate Possible Cause: frequent episodes (Patient attributes this episode to change in weather.) Modifying Factors: Improves With: activity Associated Symptoms: cough, No chest pain/discomfort, No fever, No ankle swelling, No lightheadedness, No painful breathing Allergies/Adverse Reactions: nicotine [From Nicoderm ] Allergy (Severe, Verified 11/10/21 21:52) Rash Home Medications: Albuterol 2.5 mg/3 ml Neb [Proventil 2.5 mg/3 ml Neb] 1 neb IH Q6H PRN 02/04/14 [History] Aspirin 81 mg PO DAILY 02/04/14 [History] Omeprazole 20 MG [Prilosec 20 mg] 20 mg PO BIDAC 02/04/14 [History] Nitroglycerin 0.4 mg Tablet [Nitrostat 0.4 MG Tablet] 0.4 mg SL Q5MIN PRN MR X 3 PRN 08/01/16 [History] ALPRAZolam 1 MG [Xanax 1 mg] 1 mg PO BID 10/14/18 [History] Theophylline Anhydrous 300 mg PO BID 10/14/18 [History] Isosorbide Mononitrate 60 mg [Imdur 60MG] 60 mg PO DAILY 06/01/20 [History] Metoprolol Tartrate 25 mg [Lopressor 25MG Tab] 25 mg PO BID 06/01/20 [History] Rosuvastatin Calcium 20 mg PO HS 06/01/20 [History] Spironolactone 25 mg [Aldactone 25 MG] 12.5 mg PO DAILY 01/25/21 [History] Albuterol Sulfate [Proair Digihaler] 2 puffs IH Q6H PRN 03/24/21 [History] Budesonide/Glycopyr/Formoterol [Breztri Aerosphere Inhaler] 2 puffs IH BID 03/24/21 [History] Amlodipine Besylate 2.5 mg PO DAILY 06/12/21 [History] Furosemide 20 mg [Lasix 20 mg] 20 mg PO DAILY 06/12/21 [History] Pramipexole Di-HCl [Mirapex] 0.25 mg PO DAILY 06/12/21 [History] Sacubitril/Valsartan [Entresto 97 mg-103 mg Tablet] 1 each PO BID 06/12/21 [History] Prednisone 5 mg [Deltasone 5 mg] 5 mg PO DAILY 07/12/21 [History] Carboxymethylcellulose Sodium [Refresh Liquigel] 1 ml OP HS 09/25/21 [History] Latanoprost [Xalatan] 1 ml OP HS 09/25/21 [History] Propylene Glycol/Peg 400 [Lubricating Eye Drop] 15 ml OP QID 09/25/21 [History] Hx Tetanus, Diphtheria Vaccination/Date Given: No Hx Influenza Vaccination/Date Given: Yes Hx Pneumococcal Vaccination/Date Given: Yes Travel Risk - Vaccine Status Have you recieved a Covid-19 vaccination: No - Review of Systems Constitutional: No Symptoms, No Fever, No Chills Eyes: No Symptoms Ears, Nose, & Throat: No Symptoms Respiratory: No Symptoms, No Cough, No Dyspnea Cardiac: No Symptoms, No Chest Pain, No Edema, No Syncope Abdominal/Gastrointestinal: No Symptoms, No Abdominal Pain, No Nausea, No Vomiting, No Diarrhea Genitourinary Symptoms: No Symptoms, No Dysuria Musculoskeletal: No Symptoms, No Back Pain, No Neck Pain Skin: No Symptoms, No Rash Neurological: No Symptoms, No Dizziness, No Focal Weakness, No Sensory Changes Psychological: No Symptoms Endocrine: No Symptoms Hematologic/Lymphatic: No Symptoms Immunological/Allergic: No Symptoms All Other Systems: Reviewed and Negative - Past Medical History Pertinent Past Medical History: Yes Neurological History: No Pertinent History ENT History: No Pertinent History Cardiac History: Aneurysm, Congestive Heart Failure, Hypertension Respiratory History: COPD, Sleep Apnea Endocrine Medical History: Diabetes Type II Musculoskeletal History: No Pertinent History GI Medical History: No Pertinent History, GERD History: No Pertinent History Psycho-Social History: Anxiety Male Reproductive Disorders: No Pertinent History Other Medical History: 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 Pt also states he had an increase of SOB and chest pain that he has seen Dr. Mallory for and he has been put on nitro. PT wears 4L O2 AT ALL TIMES - Past Surgical History Past Surgical History: Yes Neuro Surgical History: No Pertinent History Cardiac: No Pertinent History Respiratory: Other Gastrointestinal: Hernia Repair Genitourinary: No Pertinent History Musculoskeletal: Orthopedic Surgery Male Surgical History: Vasectomy Other Surgical History: BACK SURGERY, and ear surgery and a left lung biopsy. 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, double hernia repair, - Social History Smoking Status: Former smoker How long have you smoked: 13 Exposure to second hand smoke: No Drug Use: none Patient Lives Alone: No - Nursing Vital Signs Nursing Vital Signs: Initial Vital Signs Temperature 98.8 F 11/10/21 21:52 Pulse Rate 109 H 11/10/21 21:52 Respiratory Rate 22 11/10/21 21:52 Blood Pressure 110/71 11/10/21 21:52 O2 Sat by Pulse Oximetry 95 11/10/21 21:52 Pain Scale Pain Intensity 0 - Physical Exam General Appearance: no apparent distress, alert Eye Exam: PERRL/EOMI, eyes nml inspection, No scleral icterus Ears, Nose, Throat Exam: hearing grossly normal, normal ENT inspection, normal pharynx Neck Exam: normal inspection, non-tender, supple, full range of motion Respiratory Exam: respiratory distress (Mild respiratory distress.), airway intact, diminished breath sounds, rhonchi (Rhonchi observed on exam.) Cardiovascular/Chest Exam: normal heart sounds, regular rate/rhythm, normal peripheral pulses Abdominal/Gastrointestinal Exam: soft, normal bowel sounds, No tenderness, No distention, No mass Extremity Exam: non-tender, normal range of motion, normal inspection, no calf tenderness, no pedal edema Neurologic Exam: alert, oriented x 3, cooperative, repairer hairspring II-XII nml as tested, sensation nml, No motor deficits Skin Exam: normal color, warm, No dry Lymphatic Exam: No adenopathy SpO2 Interpretation: normal SpO2: 95 O2 Delivery: Nasal Cannula - Course Nursing assessment & vital signs reviewed: Yes EKG Interpreted by Me: RATE (109), Sinus Tach, NORMAL AXIS, NORMAL INTERVALS, Right Bundle Branch Block - Radiology Exams Chest X-ray Interpretation: Interpreted by me (COPD, bibasilar atelectasis, normal heart. Intact bony thorax. Osteopenia degenerative arthritis) Ordered Tests: Active Orders 24 hr Category Date Time Status Bedrest ROUTINE Activity 11/10/21 23:43 Active Security Management Specialist STAT Care 11/10/21 22:00 Completed Code Status Order ROUTINE Care 11/10/21 23:43 Active EKG-ER Only STAT Care 11/10/21 22:00 Completed IV Care Q6H Care 11/10/21 23:43 Active IV Insertion STAT Care 11/10/21 22:[address] in Observation ROUTINE Care 11/10/21 23:43 Active Pulse Oximetry (ED) STAT Care 11/10/21 22:00 Completed Bari Jenkins ROUTINE Care 11/10/21 23:43 Active Telemetry q4h Care 11/10/21 23:43 Active Weight,Daily 0600 Care 11/10/21 23:43 Active Heart-Healthy Diet Diet 11/10/21 Breakfast Active CHEST 1 VIEW (PORTABLE) Stat Exams 11/10/21 22:09 Taken BLOOD CULTURE Stat Lab 11/10/21 22:00 Received CBC AM.LAB Lab 11/11/21 04:00 Ordered CBC W DIFF Stat Lab 11/10/21 22:00 Completed CMP AM.LAB Lab 11/11/21 04:00 Ordered CMP Stat Lab 11/10/21 22:00 Completed NT PRO BNP Stat Lab 11/10/21 22:00 Completed TROPONIN Q3H Lab 11/10/21 22:00 Completed TROPONIN Q3H Lab 11/11/21 00:38 Completed TROPONIN Q3H Lab 11/11/21 04:00 Ordered TROPONIN Q3H Lab 11/11/21 07:00 Ordered TROPONIN Q3H Lab 11/11/21 10:00 Ordered Pulse Oximetry CONTINUOUS RT 11/10/21 23:43 Active Medication Summary Generic Name Dose Route Start Last Admin Trade Name Simón PRN Reason Stop Dose Admin Albuterol/Ipratropium 3 ml 11/11/21 03:00 11/11/21 03:02 Ipratropium/Albuterol Sulfate 3 Ml Ampul.Neb 12/11/21 02:59 3 ml Q4HRT FAHEEM Administration Methylprednisolone Sodium 0 mg 11/11/21 06:00 Succinate 60 mg/ Sterile Water IV 12/11/21 05:59 2 ml Q6HT FAHEEM Famotidine 20 mg 11/11/21 10:00 Famotidine 20 Mg/1 Vial IV 12/11/21 09:59 Q12HT FAHEEM Ceftriaxone Sodium/Dextrose 1 g in 50 mls @ 100 mls/hr 11/11/21 22:00 Rocephin 1 Gm-D5w 50 Ml Bag IV 11/14/21 21:59 Q24H22 FAHEEM Azithromycin 500 mg in 250 mls @ 250 mls/hr 11/11/21 22:00 Zithromax 500 Mg/ 250 Ml Nacl Premix IV 12/11/21 21:59 Q24H22 FAHEEM Discontinued Medications Generic Name Dose Route Start Last Admin Trade Name Simón PRN Reason Stop Dose Admin Albuterol/Ipratropium 3 ml 11/10/21 22:00 11/11/21 00:21 Ipratropium/Albuterol Sulfate 3 Ml Ampul.[facility] 11/10/21 22:01 Not Given STAT ONE Alprazolam Confirm 11/11/21 00:35 Alprazolam 1 Mg Tablet Administered 11/11/21 00:36 Dose 1 mg .ROUTE .STK-MED ONE Aspirin Confirm 11/11/21 00:36 Aspirin 81 Mg Tablet.Ec Administered 11/11/21 00:37 Dose 81 mg PO .STK-MED ONE Methylprednisolone Sodium 0 mg 11/10/21 22:00 11/10/21 22:23 Succinate 125 mg/ Sterile IV 11/10/21 22:01 125 mg Water 2 ml STAT ONE Administration Azithromycin 500 mg in 250 mls @ 250 mls/hr 11/10/21 22:00 11/10/21 23:27 Zithromax 500 Mg/ 250 Ml Nacl Premix IV 11/10/21 22:59 Infused STAT STA Infusion Ceftriaxone Sodium/Dextrose 2 g in 50 mls @ 100 mls/hr 11/10/21 22:02 11/10/21 23:12 Rocephin 2 Gm-D5w 50ml Bag IV 11/10/21 22:31 Infused STAT STA Infusion Azithromycin Confirm 11/10/21 22:13 Zithromax 500 Mg/ 250 Ml Nacl Premix Administered 11/10/21 22:14 Dose 500 mg in 250 mls @ ud IV .STK-MED ONE Ceftriaxone Sodium/Dextrose Confirm 11/10/21 22:13 Rocephin 2 Gm-D5w 50ml Bag Administered 11/10/21 22:14 Dose 2 g in 50 mls @ ud IV .STK-MED ONE Methylprednisolone Sodium Succinate Confirm 11/10/21 22:12 Methylprednis Sod Succ 125 Mg/2 Ml Vial Administered 11/10/21 22:13 Dose 125 mg .ROUTE .STK-MED ONE Pramipexole Dihydrochloride Confirm 11/11/21 00:35 Pramipexole Di-Hcl 0.5 Mg Tab Administered 11/11/21 00:36 Dose 0.5 mg .ROUTE .STK-MED ONE Simvastatin Confirm 11/11/21 00:46 Simvastatin 20 Mg Tablet Administered 11/11/21 00:47 Dose 40 mg .ROUTE .STK-MED ONE Sterile Water Confirm 11/10/21 22:12 Water For Injection,Sterile 10 Ml Vial Administered 11/10/21 22:13 Dose 10 ml IJ .STK-MED ONE Lab/Rad Data: Laboratory Result Diagrams 11/10/21 22:00 11/10/21 22:00 Laboratory Results 11/10/21 11/10/21 11/10/21 Range/Units 22:55 22:00 22:00 WBC 17.6 H (4.0-10.5) K/mm3 RBC 5.76 H (4.1-5.6) M/mm3 Hgb 15.8 (12.5-18.0) gm/dl Hct 48.2 (42-50) % MCV 83.7 (78-100) fl MCH 27.4 (26-32) pg MCHC 32.8 (32-36) g/dl RDW 16.4 H (11.5-14.0) % Plt Count 277 (150-450) K/mm3 MPV 9.9 (7.5-11.0) fl Gran % 92.2 H (36.0-66.0) % Eos # (Auto) 0.01 (0-0.5) Absolute Lymphs (auto) 0.64 L (1.0-4.6) Absolute Monos (auto) 0.71 (0.0-1.3) Lymphocytes % 3.6 L (24.0-44.0) % Monocytes % 4.0 (0.0-12.0) % Eosinophils % 0.1 (0.00-5.0) % Basophils % 0.1 (0.0-0.4) % Absolute Granulocytes 16.18 H (1.4-6.9) Basophils # 0.02 (0-0.4) Sodium 134 L (137-145) mmol/L Potassium 4.3 (3.5-5.1) mmol/L Chloride 98 (98-107) mmol/L Carbon Dioxide 28 (22-30) mmol/L Anion Gap 11.6 (5-15) MEQ/L BUN 10 (9-20) mg/dL Creatinine 0.54 L (0.66-1.25) mg/dL Estimated GFR > 60.0 ML/MIN Glucose 157 H (74-106) mg/dL Calcium 8.9 (8.4-10.2) mg/dL Total Bilirubin 1.20 (0.2-1.3) mg/dL AST 23 (17-59) U/L ALT 17 (0-50) U/L Alkaline Phosphatase 45 (38-126) U/L Troponin I (0.000-0.034) ng/mL NT-Pro-B Natriuret Pep 555 (0-1800) pg/mL Serum Total Protein 6.1 L (6.3-8.2) g/dL Albumin 3.7 (3.5-5.0) g/dL Influenza Type A Ag NEGATIVE (NEGATIVE) Influenza Type B Ag NEGATIVE (NEGATIVE) RSV (PCR) NEGATIVE (Negative) SARS-CoV-2 (PCR) NEGATIVE (NEGATIVE) 11/10/21 Range/Units 22:00 WBC (4.0-10.5) K/mm3 RBC (4.1-5.6) M/mm3 Hgb (12.5-18.0) gm/dl Hct (42-50) % MCV (78-100) fl MCH (26-32) pg MCHC (32-36) g/dl RDW (11.5-14.0) % Plt Count (150-450) K/mm3 MPV (7.5-11.0) fl Gran % (36.0-66.0) % Eos # (Auto) (0-0.5) Absolute Lymphs (auto) (1.0-4.6) Absolute Monos (auto) (0.0-1.3) Lymphocytes % (24.0-44.0) % Monocytes % (0.0-12.0) % Eosinophils % (0.00-5.0) % Basophils % (0.0-0.4) % Absolute Granulocytes (1.4-6.9) Basophils # (0-0.4) Sodium (137-145) mmol/L Potassium (3.5-5.1) mmol/L Chloride (98-107) mmol/L Carbon Dioxide (22-30) mmol/L Anion Gap (5-15) MEQ/L BUN (9-20) mg/dL Creatinine (0.66-1.25) mg/dL Estimated GFR ML/MIN Glucose (74-106) mg/dL Calcium (8.4-10.2) mg/dL Total Bilirubin (0.2-1.3) mg/dL AST (17-59) U/L ALT (0-50) U/L Alkaline Phosphatase (38-126) U/L Troponin I < 0.012 (0.000-0.034) ng/mL NT-Pro-B Natriuret Pep (0-1800) pg/mL Serum Total Protein (6.3-8.2) g/dL Albumin (3.5-5.0) g/dL Influenza Type A Ag (NEGATIVE) Influenza Type B Ag (NEGATIVE) RSV (PCR) (Negative) SARS-CoV-2 (PCR) (NEGATIVE) - Progress Progress: improved Air Movement: fair Progress Note: Patient reassessed. He feels much better. Patient received a breathing treatment in route. No steroids administered. Chest x-ray shows atelectasis an d fibrosis at the bases. COPD changes observed. Blood cultures obtained. Antibiotics administered. Solu-Medrol administered in our ED. Case discussed with Dr. Meyer covering Dr. Dixon. Dr. Meyer accepts admission to observation. Plan of care discussed with patient. He agrees to admission [facility] for further evaluation and treatment. Covid test pending 11/10/21 23:20 Covid test negative Portions of this note were created with voice recognition technology. There may be grammatical, spelling, punctuation or sound alike errors 11/11/21 03:24 Blood Culture(s) Obtained: Yes Antibiotics given: Yes Discussed with Dr.: Rocio Will see patient in: hospital (observation) Counseled pt/family regarding: lab results, diagnosis, rad results - Departure Departure Disposition: Observation Clinical Impression: COPD exacerbation, Productive cough, Hypoxia, Leukocytosis Condition: Stable Critical Care Time: No
[2021-11-10] MEDS ORDERED: solu-MEDROL ONE (22:12)
[2021-11-10] MEDS ORDERED: Sterile H2O 10 ml IJ ONE (22:12)
[2021-11-10] MEDS ORDERED: ROCEPHIN 2 Gm-D5w 50ML BAG** 2 G/50 ML IVPB IV ONE (22:13)
[2021-11-10] MEDS ORDERED: Zithromax 500 MG/ 250 ML NaCl Premix 500 MG/250 ML IVPB IV ONE (22:13)
[2021-11-10 22:28] LABS: Absolute Neutrophil Ct (ANC) 16.18 (1.4-6.9); Basophil (Absolute #) 0.02 (0-0.4); Eosinophil % 0.1 % (0.00-5.0); Eosinophil (Absolute #) 0.01 (0-0.5); Hematocrit 48.2 % (42-50); Hemoglobin 15.8 gm/dl (12.5-18.0); Lymphocyte (Absolute #) 0.64 (1.0-4.6); Lymphocytes % 3.6 % (24.0-44.0); Mean Cell Volume 83.7 fl (78-100); Mean Corpuscular Hemoglobin 27.4 pg (26-32); Mean Corpuscular Hgb Concent. 32.8 g/dl (32-36); Mean Platelet Volume 9.9 fl (7.5-11.0); Monocyte (Absolute #) 0.71 (0.0-1.3); Neutrophil % 92.2 % (36.0-66.0); Platelet Count 277 K/mm3 (150-450); Red Blood Count 5.76 M/mm3 (4.1-5.6); Red Cell Distribution Width 16.4 % (11.5-14.0); White Blood Count 17.6 K/mm3 (4.0-10.5)
[2021-11-10 22:49] LABS: ALBUMIN 3.7 g/dL (3.5-5.0); ALKALINE PHOSPHATASE 45 U/L (38-126); ANION GAP 11.6 MEQ/L (5-15); BLOOD UREA NITROGEN 10 mg/dL (9-20); CHLORIDE 98 mmol/L (98-107); Calcium 8.9 mg/dL (8.4-10.2); Carbon Dioxide 28 mmol/L (22-30); Creatinine 1 0.54 mg/dL (0.66-1.25); EST GLOMERULAR FILTRATION RATE > 60.0 ML/MIN; Glucose 157 mg/dL (74-106); NT PRO BNP 555 pg/mL (0-1800); Potassium 4.3 mmol/L (3.5-5.1); SGOT/AST 23 U/L (17-59); SGPT/ALT 17 U/L (0-50); SODIUM 134 mmol/L (137-145); Total Protein 6.1 g/dL (6.3-8.2)
[2021-11-10 23:36] LABS: INFLUENZA A NEGATIVE (NEGATIVE); INFLUENZA B NEGATIVE (NEGATIVE); RESPIRATORY SYNCTIAL VIRUS NEGATIVE (Negative); SARS-CoV-2 Xpert Express NEGATIVE (NEGATIVE)
[2021-11-11] MEDS ORDERED: XANAX 1 MG ONE (00:35)
[2021-11-11] MEDS ORDERED: Mirapex 0.5 MG Tablet ONE (00:35)
[2021-11-11] MEDS ORDERED: ECOTRIN 81 MG PO ONE (00:36)
[2021-11-11] MEDS ORDERED: ZOCOR 20MG ONE (00:46)
[2021-11-11] MEDS: DUONEB 0.5-3 MG/3 ml Neb IH SCH ×6 (03:02→22:58)
[2021-11-11 04:39] LABS: Hematocrit 40.5 % (42-50); Mean Cell Volume 85.8 fl (78-100); Mean Corpuscular Hemoglobin 27.5 pg (26-32); Mean Corpuscular Hgb Concent. 32.1 g/dl (32-36); Mean Platelet Volume 9.5 fl (7.5-11.0); Platelet Count 231 K/mm3 (150-450); Red Blood Count 4.72 M/mm3 (4.1-5.6); Red Cell Distribution Width 16.1 % (11.5-14.0)
[2021-11-11 05:08] LABS: ALBUMIN 3.5 g/dL (3.5-5.0); ALKALINE PHOSPHATASE 38 U/L (38-126); BLOOD UREA NITROGEN 13 mg/dL (9-20); CHLORIDE 96 mmol/L (98-107); Calcium 8.6 mg/dL (8.4-10.2); Carbon Dioxide 29 mmol/L (22-30); Creatinine 1 0.68 mg/dL (0.66-1.25); EST GLOMERULAR FILTRATION RATE > 60.0 ML/MIN; Glucose 267 mg/dL (74-106); Potassium 4.1 mmol/L (3.5-5.1); SGOT/AST 25 U/L (17-59); SGPT/ALT 20 U/L (0-50); SODIUM 133 mmol/L (137-145); Total Protein 6.2 g/dL (6.3-8.2)
[2021-11-11] MEDS ORDERED: solu-MEDROL ONE ×2 (05:42→17:00)
[2021-11-11] MEDS: solu-MEDROL 60 MG, Sterile H2O 10 ml 2 ML IV SCH ×8 (05:51→23:34)
[2021-11-11] MEDS ORDERED: Nitrostat 0.4 MG Tablet SL PRN (07:02)
[2021-11-11] MEDS ORDERED: NON-FORMULARY ITEM (Omeprazole 20 Mg [Prilosec 20 Mg] 20 MG Capsule.Dr) PO SCH (07:30)
[2021-11-11] MEDS: ECOTRIN 81 MG PO SCH ×2 (07:32→21:01)
[2021-11-11] MEDS: Carafate 1 GM PO SCH ×4 (07:47→21:01)
[2021-11-11] MEDS: Protonix 40MG Tablet PO SCH ×2 (07:47→16:16)
--- NOTE | 2021-11-11 08:51 | XRAY ---
Indication: Short of breath. History COPD. Comparison: September 25, 2021. Portable chest unchanged again demonstrating COPD, bibasilar subsegmental atelectasis/scarring, and left lung suture material. Heart not enlarged. No new/acute findings.
[2021-11-11] MEDS: ENTRESTO 49 MG-51 MG TABLET PO SCH ×2 (09:05→21:01)
[2021-11-11] MEDS: LASIX 20 MG PO SCH (09:05)
[2021-11-11] MEDS: XANAX 1 MG PO SCH ×2 (09:05→21:02)
[2021-11-11] MEDS: Mirapex 0.5 MG Tablet PO SCH (09:05)
[2021-11-11] MEDS: Artificial Tears 15 ML OP SCH ×4 (09:07→21:01)
[2021-11-11] MEDS: Aldactone 25 MG PO SCH (09:07)
[2021-11-11] MEDS: NORVASC 5 MG PO SCH (09:07)
[2021-11-11] MEDS: Lopressor 25MG Tab PO SCH ×2 (09:07→21:01)
[2021-11-11] MEDS: Imdur 60MG PO SCH (09:07)
[2021-11-11] MEDS: THEOPHYLLINE ER 24HR PO SCH ×2 (09:08→21:02)
[2021-11-11] MEDS: Pepcid 20 MG VIAL IV SCH ×2 (09:08→21:02)
[2021-11-11] MEDS ORDERED: NON-FORMULARY ITEM (Sacubitril/Valsartan [Entresto 97 Mg-103 Mg Tablet] 1 EACH Tablet) PO SCH (10:00)
[2021-11-11] MEDS ORDERED: NON-FORMULARY ITEM (Budesonide/Glycopyr/Formoterol [Breztri Aerosphere Inhaler] 10.7 GM Hf IH SCH (10:00)
[2021-11-11] MEDS ORDERED: PEG OP SCH (10:00)
[2021-11-11] MEDS ORDERED: PRAMIPEXOLE DI HCL 0.25 MG PO SCH (10:00)
[2021-11-11] MEDS ORDERED: DELTASONE 5 MG PO SCH (10:00)
[2021-11-11] MEDS ORDERED: THEOPHYLLINE ANHYDROUS 300 MG PO SCH (10:00)
[2021-11-11] MEDS ORDERED: NON-FORMULARY ITEM (Amlodipine Besylate [Amlodipine Besylate] 2.5 MG Tablet) PO SCH (10:00)
[2021-11-11] MEDS ORDERED: NON-FORMULARY ITEM (Aspirin [Aspirin] 81 MG Tablet) PO SCH (10:00)
[2021-11-11] MEDS ORDERED: PROPYLENE GLYCOL OP SCH (10:00)
[2021-11-11] MEDS ORDERED: Sodium Chloride 0.9% 500 ML 500 ML IV ONE (12:37)
[2021-11-11 14:28] LABS: Bacteria RARE /HPF (NEGATIVE); Mucus SLIGHT /HPF (NEGATIVE)
[2021-11-11 14:47] LABS: Appearance CLEAR (CLEAR); Bilirubin NEGATIVE (NEGATIVE); Glucose NEGATIVE (NEGATIVE); Ketones NEGATIVE (NEGATIVE); RBC NEGATIVE Ery/ul (0-5); Specific Gravity 1.025 (1.005-1.025)
[2021-11-11 14:48] LABS: Nitrite NEGATIVE (NEGATIVE); Ph 6.5 (5-6); Protein,Urine Dip NEGATIVE (Negative); Urobilinogen 0.2 mg/dL (0-1)
[2021-11-11 14:53] LABS: Dipstick done @ ? MAIN LAB
[2021-11-11 14:54] LABS: Urine Cultured Indicated? NO
[2021-11-11] MEDS: Advair Hfa 115/21 Common canister IH SCH (18:45)
[2021-11-11] MEDS ORDERED: Advair Hfa 115/21 Mcg Inhaler IH SCH (19:00)
[2021-11-11] MEDS: ZOCOR 20MG PO SCH (21:01)
[2021-11-11] MEDS: ROCEPHIN 1 Gm-D5w 50 ml Bag** 1 G/50 ML IVPB IV SCH (21:02)
[2021-11-11] MEDS: Xalatan OP SCH (21:02)
[2021-11-11] MEDS: Zithromax 500 MG/ 250 ML NaCl Premix 500 MG/250 ML IVPB IV SCH (21:39)
[2021-11-11] MEDS ORDERED: CARBOXYMETHYLCELLULOSE SODIUM OP SCH (22:00)
[2021-11-11] MEDS ORDERED: NON-FORMULARY ITEM (Rosuvastatin Calcium [Rosuvastatin Calcium] 20 MG Tablet) PO SCH (22:00)
[2021-11-12] MEDS: DUONEB 0.5-3 MG/3 ml Neb IH SCH ×6 (03:06→23:20)
[2021-11-12] MEDS: solu-MEDROL 60 MG, Sterile H2O 10 ml 2 ML IV SCH ×8 (05:05→23:05)
[2021-11-12 05:29] LABS: Basophil (Absolute #) 0.01 (0-0.4); Eosinophil % 0.1 % (0.00-5.0); Eosinophil (Absolute #) 0.01 (0-0.5); Hematocrit 41.5 % (42-50); Hemoglobin 13.1 gm/dl (12.5-18.0); Lymphocyte (Absolute #) 0.27 (1.0-4.6); Lymphocytes % 2.1 % (24.0-44.0); Mean Cell Volume 86.3 fl (78-100); Mean Corpuscular Hemoglobin 27.2 pg (26-32); Mean Corpuscular Hgb Concent. 31.6 g/dl (32-36); Mean Platelet Volume 9.7 fl (7.5-11.0); Monocyte (Absolute #) 0.28 (0.0-1.3); Monocytes % 2.2 % (0.0-12.0); Neutrophil % 95.5 % (36.0-66.0); Platelet Count 235 K/mm3 (150-450); Red Blood Count 4.81 M/mm3 (4.1-5.6); Red Cell Distribution Width 16.1 % (11.5-14.0)
[2021-11-12 06:07] LABS: ANION GAP 9.1 MEQ/L (5-15); BLOOD UREA NITROGEN 12 mg/dL (9-20); CHLORIDE 100 mmol/L (98-107); Calcium 9.1 mg/dL (8.4-10.2); Carbon Dioxide 31 mmol/L (22-30); Creatinine 1 0.57 mg/dL (0.66-1.25); EST GLOMERULAR FILTRATION RATE > 60.0 ML/MIN; Glucose 214 mg/dL (74-106); Potassium 4.7 mmol/L (3.5-5.1); SODIUM 135 mmol/L (137-145)
[2021-11-12 06:27] LABS: Slide Review 1 YES
[2021-11-12] MEDS: Advair Hfa 115/21 Common canister IH SCH ×2 (07:31→19:29)
[2021-11-12] MEDS: Protonix 40MG Tablet PO SCH ×2 (08:01→16:05)
[2021-11-12] MEDS: Carafate 1 GM PO SCH ×4 (08:01→21:05)
[2021-11-12] MEDS: Artificial Tears 15 ML OP SCH ×4 (09:27→21:04)
[2021-11-12] MEDS: Mirapex 0.5 MG Tablet PO SCH (09:28)
[2021-11-12] MEDS: Imdur 60MG PO SCH (09:28)
[2021-11-12] MEDS: Aldactone 25 MG PO SCH (09:29)
[2021-11-12] MEDS: XANAX 1 MG PO SCH ×2 (09:29→21:06)
[2021-11-12] MEDS: LASIX 20 MG PO SCH (09:30)
[2021-11-12] MEDS: ENTRESTO 49 MG-51 MG TABLET PO SCH ×2 (09:30→21:05)
[2021-11-12] MEDS: Lopressor 25MG Tab PO SCH ×2 (09:31→21:05)
[2021-11-12] MEDS: THEOPHYLLINE ER 24HR PO SCH ×2 (09:31→21:06)
[2021-11-12] MEDS: NORVASC 5 MG PO SCH (09:32)
[2021-11-12] MEDS: Pepcid 20 MG VIAL IV SCH ×2 (09:33→21:05)
--- NOTE | 2021-11-12 13:27 | PCM.NOTE ---
Date and Time: 11/12/21 1321 Subjective Assessment: Pt is on 5L NC currently. Breathing is better. Blood sugars in the 200s - pt says he "used to be diabetic." - Review of Systems Constitutional: No Fever Respiratory: Cough, Short Of Breath Objective Exam General Appearance: no apparent distress, alert Neurologic Exam: cooperative, disoriented (Thinks he is in a hotel) Skin Exam: normal color, warm, dry, No rash Neck Exam: normal inspection Respiratory Exam: diminished breath sounds (fair air exchange), No crackles/rales, No rhonchi, No wheezing Cardiovascular Exam: regular rate/rhythm, normal heart sounds, No murmur Gastrointestinal/Abdomen Exam: soft, normal bowel sounds, tenderness (LUQ at hernia site), No distention, No mass, No guarding, No rebound Extremity Exam: normal inspection, No pedal edema, No swelling OBJECTIVE DATA Vital Signs: Vital Signs - 24 hr Temp Pulse Resp BP Pulse Ox 11/12/21 11:35 97.5 F 94 H 30 H 101/55 98 11/12/21 11:00 91 L 11/12/21 07:35 97.5 F 93 H 17 122/57 95 11/12/21 04:00 97.5 F 95 H 23 122/68 92 L 11/12/21 03:08 82 22 94 L 11/11/21 23:56 97.8 F 93 H 18 89/58 94 L 11/11/21 22:58 84 23 91 L 11/11/21 20:00 97.8 F 93 H 26 H 98/55 95 11/11/21 18:45 91 H 22 89 L 11/11/21 16:00 97.5 F 95 H 21 97/54 94 L 11/11/21 15:10 86 24 94 L Pain Assessment - Last Documented Pain Intensity 0 Intake and Output: Intake & Output 11/10/21 11/11/21 11/12/21 11/13/21 11:59 11:59 11:59 11:59 Intake Total 480 2540 Output Total 3580 Balance 480 -1040 Weight 79.8 kg 83.5 kg Lab Results: Lab Results-Last 24 Hours 11/11/21 11/12/21 11/12/21 Range/Units 12:00 04:35 04:35 WBC 13.0 H (4.0-10.5) K/mm3 RBC 4.81 (4.1-5.6) M/mm3 Hgb 13.1 (12.5-18.0) gm/dl Hct 41.5 L (42-50) % MCV 86.3 (78-100) fl MCH 27.2 (26-32) pg MCHC 31.6 L (32-36) g/dl RDW 16.1 H (11.5-14.0) % Plt Count 235 (150-450) K/mm3 MPV 9.7 (7.5-11.0) fl Gran % 95.5 H (36.0-66.0) % Eos # (Auto) 0.01 (0-0.5) Absolute Lymphs (auto) 0.27 L (1.0-4.6) Absolute Monos (auto) 0.28 (0.0-1.3) Lymphocytes % 2.1 L (24.0-44.0) % Monocytes % 2.2 (0.0-12.0) % Eosinophils % 0.1 (0.00-5.0) % Basophils % 0.1 (0.0-0.4) % Absolute Granulocytes 12.40 H (1.4-6.9) Basophils # 0.01 (0-0.4) Sodium 135 L (137-145) mmol/L Potassium 4.7 (3.5-5.1) mmol/L Chloride 100 (98-107) mmol/L Carbon Dioxide 31 H (22-30) mmol/L Anion Gap 9.1 (5-15) MEQ/L BUN 12 (9-20) mg/dL Creatinine 0.57 L (0.66-1.25) mg/dL Estimated GFR > 60.0 ML/MIN Glucose 214 H (74-106) mg/dL Calcium 9.1 (8.4-10.2) mg/dL Urinalys Dipstick Clnc MAIN LAB Urine Color YELLOW (YELLOW) Urine Appearance CLEAR (CLEAR) Urine pH 6.5 (5-6) Ur Specific [place] 1.025 (1.005-1.025) POC Urine Protein Conf NEGATIVE (Negative) Urine Ketones NEGATIVE (NEGATIVE) Urine Nitrite NEGATIVE (NEGATIVE) Urine Bilirubin NEGATIVE (NEGATIVE) Urine Urobilinogen 0.2 (0-1) mg/dL Urine Leukocytes NEGATIVE (NEGATIVE) Urine WBC (Auto) NONE (0-5) /HPF Urine RBC (Auto) NONE (0-2) /HPF U Epithel Cells (Auto) NONE (FEW) /HPF Urine Bacteria (Auto) RARE (NEGATIVE) /HPF Urine RBC NEGATIVE (0-5) Johan/ul Urine Mucus (Auto) SLIGHT (NEGATIVE) /HPF Ur Culture Indicated? NO Urine Glucose NEGATIVE (NEGATIVE) mg/dL Slides for Path Review YES Radiology Exams: Radiology Procedures Category Date Time Status CHEST 1 VIEW (PORTABLE) Stat Exams 11/10/21 22:09 Completed Assessment/Plan (1) COPD exacerbation Current Visit: Yes Status: Acute Assessment & Plan: On rocephin and zithromax, with solumedro IV 60mg q6h. Breathing is better - on 5L NC, when his usual is 3-4L at home. WIll start weaning IV steroid tomorrow if he continues to improve. Code(s): J44.1 - CHRONIC OBSTRUCTIVE PULMONARY DISEASE W (ACUTE) EXACERBATION (2) Leukocytosis Current Visit: Yes Status: Acute Qualifiers: Leukocytosis type: unspecified Qualified Code(s): D72.829 - Elevated white blood cell count, unspecified Assessment & Plan: improved - 13,000. Code(s): D72.829 - ELEVATED WHITE BLOOD CELL COUNT, UNSPECIFIED (3) DM2 (diabetes mellitus, type 2) Current Visit: No Status: Chronic Qualifiers: Diabetes mellitus press tender long goods insulin use: without retirement use Diabetes mellitus complication status: without complication Qualified Code(s): E11.9 - Type 2 diabetes mellitus without complications Assessment & Plan: start accuchecks with low dose sliding scale. A1c.
[2021-11-12] MEDS ORDERED: CEPACOL SORE THROAT LOZENGE ONE (17:16)
[2021-11-12] MEDS ORDERED: CEPACOL SORE THROAT LOZENGE PO PRN (17:20)
[2021-11-12] MEDS: ECOTRIN 81 MG PO SCH (21:05)
[2021-11-12] MEDS: ROCEPHIN 1 Gm-D5w 50 ml Bag** 1 G/50 ML IVPB IV SCH (21:05)
[2021-11-12] MEDS: Xalatan OP SCH (21:06)
[2021-11-12] MEDS: ZOCOR 20MG PO SCH (21:06)
[2021-11-12] MEDS: Zithromax 500 MG/ 250 ML NaCl Premix 500 MG/250 ML IVPB IV SCH (21:41)
[2021-11-13] MEDS: DUONEB 0.5-3 MG/3 ml Neb IH SCH ×6 (03:05→22:10)
[2021-11-13 04:49] LABS: Absolute Neutrophil Ct (ANC) 14.77 (1.4-6.9); Basophil (Absolute #) 0.02 (0-0.4); Eosinophil (Absolute #) 0 (0-0.5); Hematocrit 40.7 % (42-50); Hemoglobin 12.9 gm/dl (12.5-18.0); Lymphocyte (Absolute #) 0.31 (1.0-4.6); Mean Corpuscular Hemoglobin 27.6 pg (26-32); Mean Corpuscular Hgb Concent. 31.7 g/dl (32-36); Mean Platelet Volume 9.5 fl (7.5-11.0); Monocyte (Absolute #) 0.27 (0.0-1.3); Monocytes % 1.8 % (0.0-12.0); Neutrophil % 96.1 % (36.0-66.0); Platelet Count 273 K/mm3 (150-450); Red Blood Count 4.68 M/mm3 (4.1-5.6); Red Cell Distribution Width 16.2 % (11.5-14.0); White Blood Count 15.4 K/mm3 (4.0-10.5)
[2021-11-13 05:07] LABS: ANION GAP 8.8 MEQ/L (5-15); BLOOD UREA NITROGEN 14 mg/dL (9-20); CHLORIDE 98 mmol/L (98-107); Calcium 8.7 mg/dL (8.4-10.2); Carbon Dioxide 31 mmol/L (22-30); Creatinine 1 0.59 mg/dL (0.66-1.25); EST GLOMERULAR FILTRATION RATE > 60.0 ML/MIN; Glucose 174 mg/dL (74-106); Potassium 4.5 mmol/L (3.5-5.1); SODIUM 133 mmol/L (137-145)
[2021-11-13] MEDS ORDERED: solu-MEDROL ONE ×2 (05:24→20:48)
[2021-11-13] MEDS: solu-MEDROL 60 MG, Sterile H2O 10 ml 2 ML IV SCH ×2 (05:27)
[2021-11-13] MEDS: Advair Hfa 115/21 Common canister IH SCH ×2 (07:16→18:49)
[2021-11-13] MEDS: Carafate 1 GM PO SCH ×4 (08:04→21:23)
[2021-11-13] MEDS: Protonix 40MG Tablet PO SCH ×2 (08:04→16:52)
[2021-11-13] MEDS: Aldactone 25 MG PO SCH (09:23)
[2021-11-13] MEDS: LASIX 20 MG PO SCH (09:25)
[2021-11-13] MEDS: Artificial Tears 15 ML OP SCH ×4 (09:25→21:24)
[2021-11-13] MEDS: Imdur 60MG PO SCH (09:25)
[2021-11-13] MEDS: ENTRESTO 49 MG-51 MG TABLET PO SCH ×2 (09:25→21:23)
[2021-11-13] MEDS: Lopressor 25MG Tab PO SCH ×2 (09:26→21:23)
[2021-11-13] MEDS: Mirapex 0.5 MG Tablet PO SCH (09:26)
[2021-11-13] MEDS: Pepcid 20 MG VIAL IV SCH ×2 (09:27→21:25)
[2021-11-13] MEDS: NORVASC 5 MG PO SCH (09:27)
[2021-11-13] MEDS: THEOPHYLLINE ER 24HR PO SCH ×2 (09:28→21:22)
[2021-11-13] MEDS: XANAX 1 MG PO SCH ×2 (09:28→21:23)
[2021-11-13 11:15] LABS: Slide Review 1 YES
--- NOTE | 2021-11-13 12:42 | PCM.NOTE ---
Date and Time: 11/13/21 1239 Subjective Assessment: Pt's breathing is better. Saundra po. - Review of Systems Constitutional: No Fever Respiratory: Cough, Short Of Breath Objective Exam General Appearance: no apparent distress, alert Neurologic Exam: cooperative, normal mood/affect Skin Exam: normal color, warm, dry, No rash Eye Exam: eyes nml inspection Ears, Nose, Throat Exam: moist mucous membranes Neck Exam: normal inspection Respiratory Exam: diminished breath sounds (fair air exchange), No crackl es/rales, No rhonchi, No wheezing Cardiovascular Exam: regular rate/rhythm, normal heart sounds, No murmur Gastrointestinal/Abdomen Exam: soft, normal bowel sounds, No tenderness, No distention, No mass, No guarding, No rebound Extremity Exam: No pedal edema, No swelling OBJECTIVE DATA Vital Signs: Vital Signs - 24 hr Temp Pulse Resp BP Pulse Ox 11/13/21 11:52 97.8 F 83 30 H 99/57 95 11/13/21 10:39 70 22 97 11/13/21 07:50 97.7 F 86 26 H 112/71 95 11/13/21 07:20 77 22 94 L 11/13/21 03:43 97.5 F 87 24 109/59 98 11/13/21 03:05 78 20 99 11/13/21 00:00 97.3 F 91 H 23 101/59 97 11/12/21 23:20 108 H 22 90 L 11/12/21 20:00 98.6 F 107 H 24 107/57 95 11/12/21 19:30 106 H 20 91 L 11/12/21 16:00 98.6 F 117 H 31 H 99/61 93 L 11/12/21 15:23 88 22 93 L Pain Assessment - Last Documented Pain Intensity 0 Intake and Output: Intake & Output 11/11/21 11/12/21 11/13/21 11/14/21 11:59 11:59 11:59 11:59 Intake Total 480 2540 2220 Output Total 3580 1000 Balance 480 -1040 1220 Weight 79.8 kg 83.5 kg 82.6 kg Lab Results: Lab Results-Last 24 Hours 11/12/21 11/12/21 11/13/21 Range/Units 15:54 20:56 04:20 WBC 15.4 H (4.0-10.5) K/mm3 RBC 4.68 (4.1-5.6) M/mm3 Hgb 12.9 (12.5-18.0) gm/dl Hct 40.7 L (42-50) % MCV 87.0 (78-100) fl MCH 27.6 (26-32) pg MCHC 31.7 L (32-36) g/dl RDW 16.2 H (11.5-14.0) % Plt Count 273 (150-450) K/mm3 MPV 9.5 (7.5-11.0) fl Gran % 96.1 H (36.0-66.0) % Eos # (Auto) 0 (0-0.5) Absolute Lymphs (auto) 0.31 L (1.0-4.6) Absolute Monos (auto) 0.27 (0.0-1.3) Lymphocytes % 2.0 L (24.0-44.0) % Monocytes % 1.8 (0.0-12.0) % Eosinophils % 0.0 (0.00-5.0) % Basophils % 0.1 (0.0-0.4) % Absolute Granulocytes 14.77 H (1.4-6.9) Basophils # 0.02 (0-0.4) Sodium (137-145) mmol/L Potassium (3.5-5.1) mmol/L Chloride (98-107) mmol/L Carbon Dioxide (22-30) mmol/L Anion Gap (5-15) MEQ/L BUN (9-20) mg/dL Creatinine (0.66-1.25) mg/dL Estimated GFR ML/MIN Glucose (74-106) mg/dL POC Glucometer 168 H 124 H (74 to 106) mg/dL Hemoglobin A1c (4.5-6.0) % Calcium (8.4-10.2) mg/dL Slides for Path Review YES 11/13/21 11/13/21 11/13/21 Range/Units 04:20 04:20 06:56 WBC (4.0-10.5) K/mm3 RBC (4.1-5.6) M/mm3 Hgb (12.5-18.0) gm/dl Hct (42-50) % MCV (78-100) fl MCH (26-32) pg MCHC (32-36) g/dl RDW (11.5-14.0) % Plt Count (150-450) K/mm3 MPV (7.5-11.0) fl Gran % (36.0-66.0) % Eos # (Auto) (0-0.5) Absolute Lymphs (auto) (1.0-4.6) Absolute Monos (auto) (0.0-1.3) Lymphocytes % (24.0-44.0) % Monocytes % (0.0-12.0) % Eosinophils % (0.00-5.0) % Basophils % (0.0-0.4) % Absolute Granulocytes (1.4-6.9) Basophils # (0-0.4) Sodium 133 L (137-145) mmol/L Potassium 4.5 (3.5-5.1) mmol/L Chloride 98 (98-107) mmol/L Carbon Dioxide 31 H (22-30) mmol/L Anion Gap 8.8 (5-15) MEQ/L BUN 14 (9-20) mg/dL Creatinine 0.59 L (0.66-1.25) mg/dL Estimated GFR > 60.0 ML/MIN Glucose 174 H (74-106) mg/dL POC Glucometer 132 H (74 to 106) mg/dL Hemoglobin A1c 6.68 H (4.5-6.0) % Calcium 8.7 (8.4-10.2) mg/dL Slides for Path Review 11/13/21 Range/Units 11:38 WBC (4.0-10.5) K/mm3 RBC (4.1-5.6) M/mm3 Hgb (12.5-18.0) gm/dl Hct (42-50) % MCV (78-100) fl MCH (26-32) pg MCHC (32-36) g/dl RDW (11.5-14.0) % Plt Count (150-450) K/mm3 MPV (7.5-11.0) fl Gran % (36.0-66.0) % Eos # (Auto) (0-0.5) Absolute Lymphs (auto) (1.0-4.6) Absolute Monos (auto) (0.0-1.3) Lymphocytes % (24.0-44.0) % Monocytes % (0.0-12.0) % Eosinophils % (0.00-5.0) % Basophils % (0.0-0.4) % Absolute Granulocytes (1.4-6.9) Basophils # (0-0.4) Sodium (137-145) mmol/L Potassium (3.5-5.1) mmol/L Chloride (98-107) mmol/L Carbon Dioxide (22-30) mmol/L Anion Gap (5-15) MEQ/L BUN (9-20) mg/dL Creatinine (0.66-1.25) mg/dL Estimated GFR ML/MIN Glucose (74-106) mg/dL POC Glucometer 246 H (74 to 106) mg/dL Hemoglobin A1c (4.5-6.0) % Calcium (8.4-10.2) mg/dL Slides for Path Review Assessment/Plan (1) COPD exacerbation Current Visit: Yes Status: Acute Assessment & Plan: Improving - will decrease steroid from t60mg IV q6h to 40mg IV q8h. On rocephin and zithromax IV day #4. Code(s): J44.1 - CHRONIC OBSTRUCTIVE PULMONARY DISEASE W (ACUTE) EXACERBATION (2) Leukocytosis Current Visit: Yes Status: Acute Qualifiers: Leukocytosis type: unspecified Qualified Code(s): D72.829 - Elevated white blood cell count, unspecified Assessment & Plan: increased to 15.4, likely due to steroids. Code(s): D72.829 - ELEVATED WHITE BLOOD CELL COUNT, UNSPECIFIED (3) DM2 (diabetes mellitus, type 2) Current Visit: No Status: Chronic Qualifiers: Diabetes mellitus nursing home insulin use: without nursing home use Diabetes mellitus complication status: without complication Qualified Code(s): E11.9 - Type 2 diabetes mellitus without complications
[2021-11-13] MEDS: HUMALOG SQ PRN (12:54)
[2021-11-13] MEDS: ENOXAPARIN SODIUM SQ SCH (13:34)
[2021-11-13] MEDS: solu-MEDROL 40 MG, Sterile H2O 10 ml 1 ML IV SCH ×4 (13:34→21:25)
[2021-11-13] MEDS: ROCEPHIN 1 Gm-D5w 50 ml Bag** 1 G/50 ML IVPB IV SCH (21:22)
[2021-11-13] MEDS: ECOTRIN 81 MG PO SCH (21:23)
[2021-11-13] MEDS: ZOCOR 20MG PO SCH (21:23)
[2021-11-13] MEDS: Xalatan OP SCH (21:24)
[2021-11-13] MEDS: Zithromax 500 MG/ 250 ML NaCl Premix 500 MG/250 ML IVPB IV SCH (22:28)
[2021-11-14] MEDS: DUONEB 0.5-3 MG/3 ml Neb IH SCH ×6 (02:15→22:53)
[2021-11-14 04:44] LABS: Hematocrit 40.1 % (42-50); Hemoglobin 12.5 gm/dl (12.5-18.0); Mean Cell Volume 87.4 fl (78-100); Mean Corpuscular Hemoglobin 27.2 pg (26-32); Mean Corpuscular Hgb Concent. 31.2 g/dl (32-36); Mean Platelet Volume 9.5 fl (7.5-11.0); Platelet Count 274 K/mm3 (150-450); Red Blood Count 4.59 M/mm3 (4.1-5.6); Red Cell Distribution Width 16.1 % (11.5-14.0); White Blood Count 12.5 K/mm3 (4.0-10.5)
[2021-11-14 05:05] LABS: ANION GAP 6.8 MEQ/L (5-15); BLOOD UREA NITROGEN 14 mg/dL (9-20); CHLORIDE 97 mmol/L (98-107); Calcium 8.6 mg/dL (8.4-10.2); Carbon Dioxide 34 mmol/L (22-30); Creatinine 1 0.46 mg/dL (0.66-1.25); EST GLOMERULAR FILTRATION RATE > 60.0 ML/MIN; Glucose 166 mg/dL (74-106); Potassium 4.4 mmol/L (3.5-5.1); SODIUM 133 mmol/L (137-145)
[2021-11-14] MEDS ORDERED: solu-MEDROL ONE ×2 (06:05→22:13)
[2021-11-14] MEDS: solu-MEDROL 40 MG, Sterile H2O 10 ml 1 ML IV SCH ×6 (06:12→22:50)
[2021-11-14] MEDS: Advair Hfa 115/21 Common canister IH SCH ×2 (06:28→18:36)
[2021-11-14 08:08] LABS: ATYPICAL LYMPHS 1 %; Lymphocytes 6 % (24-44); Monocyte 2 % (0.0-12.0); Total Cells Counted 100
[2021-11-14 08:10] LABS: Platelet Estimate NORMAL (NORMAL)
[2021-11-14] MEDS: Lopressor 25MG Tab PO SCH ×2 (08:15→22:37)
[2021-11-14] MEDS: Protonix 40MG Tablet PO SCH ×2 (08:15→17:03)
[2021-11-14] MEDS: Mirapex 0.5 MG Tablet PO SCH (08:15)
[2021-11-14] MEDS: ENTRESTO 49 MG-51 MG TABLET PO SCH ×2 (08:15→22:36)
[2021-11-14] MEDS: Carafate 1 GM PO SCH ×4 (08:15→22:37)
[2021-11-14] MEDS: Pepcid 20 MG VIAL IV SCH ×2 (08:16→22:37)
[2021-11-14] MEDS: Aldactone 25 MG PO SCH (08:16)
[2021-11-14] MEDS: LASIX 20 MG PO SCH (08:16)
[2021-11-14] MEDS: Imdur 60MG PO SCH (08:16)
[2021-11-14] MEDS: NORVASC 5 MG PO SCH (08:16)
[2021-11-14] MEDS: ENOXAPARIN SODIUM SQ SCH (08:16)
[2021-11-14] MEDS: XANAX 1 MG PO SCH ×2 (08:16→22:37)
[2021-11-14] MEDS: THEOPHYLLINE ER 24HR PO SCH ×2 (08:17→22:37)
[2021-11-14] MEDS: Artificial Tears 15 ML OP SCH ×4 (08:17→22:51)
--- NOTE | 2021-11-14 10:50 | PCM.NOTE ---
Date and Time: 11/14/21 1045 Subjective Assessment: Patient is up in chair ,conversational dyspnea ,states had been up to the restroom and is still winded from this. Is due for neb tx in 15 minutes,wheezing right base,no crackles and no edema,afebrile. Appetite is good. - Review of Systems Constitutional: Fatigue Respiratory: Short Of Breath, Wheezing Cardiac: No Symptoms Abdominal/Gastrointestinal: No Symptoms Genitourinary Symptoms: No Symptoms Neurological: No Symptoms Psychological: No Symptoms Endocrine: No Symptoms Objective Exam General Appearance: mild distress (is short of breath just back from using the bathroom) Neurologic Exam: alert, oriented x 3, cooperative, normal mood/affect Skin Exam: normal color, warm, dry Eye Exam: eyes nml inspection Ears, Nose, Throat Exam: normal ENT inspection Neck Exam: normal inspection Respiratory Exam: wheezing (right base fine eew,no rales,no ronchi) Cardiovascular Exam: regular rate/rhythm Gastrointestinal/Abdomen Exam: soft, normal bowel sounds (nontender) Extremity Exam: normal inspection OBJECTIVE DATA Vital Signs: Vital Signs - 24 hr Temp Pulse Resp BP Pulse Ox 11/14/21 10:23 77 22 94 L 11/14/21 07:06 97.9 F 88 16 112/59 93 L 11/14/21 06:32 77 22 96 11/14/21 03:35 97.8 F 80 23 131/73 100 11/14/21 02:15 85 21 97 11/13/21 23:54 97.5 F 84 24 107/65 93 L 11/13/21 22:10 94 H 20 95 11/13/21 20:00 97.7 F 90 24 92/61 96 11/13/21 18:45 93 H 24 95 11/13/21 16:00 97.8 F 103 H 18 116/68 95 11/13/21 11:52 97.8 F 83 30 H 99/57 95 Pain Assessment - Last Documented Pain Intensity 0 Intake and Output: Intake & Output 11/11/21 11/12/21 11/13/21 11/14/21 11:59 11:59 11:59 11:59 Intake Total 480 2540 2220 1980 Output Total 3580 1000 2250 Balance 480 -1040 1220 -270 Weight 79.8 kg 83.5 kg 82.6 kg 81.8 kg Lab Results: Lab Results-Last 24 Hours 11/13/21 11/13/21 11/13/21 Range/Units 04:20 11:38 16:09 WBC (4.0-10.5) K/mm3 RBC (4.1-5.6) M/mm3 Hgb (12.5-18.0) gm/dl Hct (42-50) % MCV (78-100) fl MCH (26-32) pg MCHC (32-36) g/dl RDW (11.5-14.0) % Plt Count (150-450) K/mm3 MPV (7.5-11.0) fl Segmented Neutrophils (36.-66.) % Lymphocytes (Manual) (24-44) % Monocytes (Manual) (0.0-12.0) % Atypical Lymphocytes % Platelet Estimate (NORMAL) RBC Morphology Sodium (137-145) mmol/L Potassium (3.5-5.1) mmol/L Chloride (98-107) mmol/L Carbon Dioxide (22-30) mmol/L Anion Gap (5-15) MEQ/L BUN (9-20) mg/dL Creatinine (0.66-1.25) mg/dL Estimated GFR ML/MIN Glucose (74-106) mg/dL POC Glucometer 246 H 128 H (74 to 106) mg/dL Calcium (8.4-10.2) mg/dL Slides for Path Review YES 11/13/21 11/14/21 11/14/21 Range/Units 20:46 04:10 04:10 WBC 12.5 H (4.0-10.5) K/mm3 RBC 4.59 (4.1-5.6) M/mm3 Hgb 12.5 (12.5-18.0) gm/dl Hct 40.1 L (42-50) % MCV 87.4 (78-100) fl MCH 27.2 (26-32) pg MCHC 31.2 L (32-36) g/dl RDW 16.1 H (11.5-14.0) % Plt Count 274 (150-450) K/mm3 MPV 9.5 (7.5-11.0) fl Segmented Neutrophils 91 H (36.-66.) % Lymphocytes (Manual) 6 L (24-44) % Monocytes (Manual) 2 (0.0-12.0) % Atypical Lymphocytes 1 % Platelet Estimate NORMAL (NORMAL) RBC Morphology NORMAL Sodium 133 L (137-145) mmol/L Potassium 4.4 (3.5-5.1) mmol/L Chloride 97 L (98-107) mmol/L Carbon Dioxide 34 H (22-30) mmol/L Anion Gap 6.8 (5-15) MEQ/L BUN 14 (9-20) mg/dL Creatinine 0.46 L (0.66-1.25) mg/dL Estimated GFR > 60.0 ML/MIN Glucose 166 H (74-106) mg/dL POC Glucometer 127 H (74 to 106) mg/dL Calcium 8.6 (8.4-10.2) mg/dL Slides for Path Review 11/14/21 Range/Units 07:13 WBC (4.0-10.5) K/mm3 RBC (4.1-5.6) M/mm3 Hgb (12.5-18.0) gm/dl Hct (42-50) % MCV (78-100) fl MCH (26-32) pg MCHC (32-36) g/dl RDW (11.5-14.0) % Plt Count (150-450) K/mm3 MPV (7.5-11.0) fl Segmented Neutrophils (36.-66.) % Lymphocytes (Manual) (24-44) % Monocytes (Manual) (0.0-12.0) % Atypical Lymphocytes % Platelet Estimate (NORMAL) RBC Morphology Sodium (137-145) mmol/L Potassium (3.5-5.1) mmol/L Chloride (98-107) mmol/L Carbon Dioxide (22-30) mmol/L Anion Gap (5-15) MEQ/L BUN (9-20) mg/dL Creatinine (0.66-1.25) mg/dL Estimated GFR ML/MIN Glucose (74-106) mg/dL POC Glucometer 114 H (74 to 106) mg/dL Calcium (8.4-10.2) mg/dL Slides for Path Review Assessment/Plan (1) COPD exacerbation Current Visit: Yes Status: Acute Assessment & Plan: still GUERRA and wheezing with some overall improvement ,continue present care Code(s): J44.1 - CHRONIC OBSTRUCTIVE PULMONARY DISEASE W (ACUTE) EXACERBATION (2) DM2 (diabetes mellitus, type 2) Current Visit: No Status: Chronic Qualifiers: Diabetes mellitus salary and wage administrator insulin use: without salary and wage administrator use Diabetes mellitus complication status: without complication Qualified Code(s): E11.9 - Type 2 diabetes mellitus without complications Assessment & Plan: continue to moniter (3) CHF (congestive heart failure) Current Visit: No Status: Chronic Qualifiers: Heart failure chronicity: chronic Assessment & Plan: controlled at present,BNP wnl ,no rales Code(s): I50.9 - HEART FAILURE, UNSPECIFIED
[2021-11-14] MEDS: HUMALOG SQ PRN (17:35)
[2021-11-14] MEDS: ZOCOR 20MG PO SCH (22:36)
[2021-11-14] MEDS: ECOTRIN 81 MG PO SCH (22:36)
[2021-11-14] MEDS: Xalatan OP SCH (22:37)
[2021-11-14] MEDS: ROCEPHIN 1 Gm-D5w 50 ml Bag** 1 G/50 ML IVPB IV SCH (22:40)
[2021-11-14] MEDS: Zithromax 500 MG/ 250 ML NaCl Premix 500 MG/250 ML IVPB IV SCH (22:40)
[2021-11-15] MEDS: DUONEB 0.5-3 MG/3 ml Neb IH SCH ×6 (03:39→23:06)
[2021-11-15] MEDS ORDERED: solu-MEDROL ONE (06:29)
[2021-11-15] MEDS: solu-MEDROL 40 MG, Sterile H2O 10 ml 1 ML IV SCH ×2 (06:38)
[2021-11-15] MEDS: Advair Hfa 115/21 Common canister IH SCH ×2 (06:59→20:15)
[2021-11-15] MEDS: Carafate 1 GM PO SCH ×4 (07:35→21:45)
[2021-11-15] MEDS: Protonix 40MG Tablet PO SCH ×2 (07:35→16:40)
[2021-11-15] MEDS: DELTASONE 20 MG PO SCH (09:49)
[2021-11-15] MEDS: ENOXAPARIN SODIUM SQ SCH (09:50)
[2021-11-15] MEDS: Imdur 60MG PO SCH (09:50)
[2021-11-15] MEDS: NORVASC 5 MG PO SCH (09:50)
[2021-11-15] MEDS: Mirapex 0.5 MG Tablet PO SCH (09:50)
[2021-11-15] MEDS: THEOPHYLLINE ER 24HR PO SCH ×2 (09:50→21:45)
[2021-11-15] MEDS: Aldactone 25 MG PO SCH (09:51)
[2021-11-15] MEDS: XANAX 1 MG PO SCH ×2 (09:51→21:46)
[2021-11-15] MEDS: Pepcid 20 MG VIAL IV SCH ×2 (09:51→21:46)
[2021-11-15] MEDS: Artificial Tears 15 ML OP SCH ×4 (09:51→21:47)
[2021-11-15] MEDS: Lopressor 25MG Tab PO SCH ×2 (09:51→21:48)
[2021-11-15] MEDS: LASIX 20 MG PO SCH (09:51)
[2021-11-15] MEDS: ENTRESTO 49 MG-51 MG TABLET PO SCH ×2 (09:51→21:45)
[2021-11-15] MEDS: ECOTRIN 81 MG PO SCH (21:45)
[2021-11-15] MEDS: ZOCOR 20MG PO SCH (21:46)
[2021-11-15] MEDS: Xalatan OP SCH (21:46)
[2021-11-15] MEDS: ROCEPHIN 1 Gm-D5w 50 ml Bag** 1 G/50 ML IVPB IV SCH (21:47)
[2021-11-15] MEDS: Zithromax 500 MG/ 250 ML NaCl Premix 500 MG/250 ML IVPB IV SCH (21:47)
[2021-11-16] MEDS: DUONEB 0.5-3 MG/3 ml Neb IH SCH ×3 (03:19→11:05)
[2021-11-16 04:52] LABS: Hematocrit 41.9 % (42-50); Hemoglobin 13.2 gm/dl (12.5-18.0); Mean Corpuscular Hemoglobin 27.1 pg (26-32); Mean Corpuscular Hgb Concent. 31.5 g/dl (32-36); Platelet Count 304 K/mm3 (150-450); Red Blood Count 4.87 M/mm3 (4.1-5.6); White Blood Count 10.7 K/mm3 (4.0-10.5)
[2021-11-16 05:11] LABS: ANION GAP 9.6 MEQ/L (5-15); BLOOD UREA NITROGEN 18 mg/dL (9-20); CHLORIDE 95 mmol/L (98-107); Calcium 8.8 mg/dL (8.4-10.2); Carbon Dioxide 35 mmol/L (22-30); Creatinine 1 0.59 mg/dL (0.66-1.25); EST GLOMERULAR FILTRATION RATE > 60.0 ML/MIN; Glucose 101 mg/dL (74-106); Potassium 4.4 mmol/L (3.5-5.1); SODIUM 135 mmol/L (137-145)
[2021-11-16] MEDS: Advair Hfa 115/21 Common canister IH SCH (06:58)
[2021-11-16] MEDS: Protonix 40MG Tablet PO SCH (07:59)
[2021-11-16] MEDS: Carafate 1 GM PO SCH (07:59)
--- NOTE | 2021-11-16 08:46 | XRAY ---
Indication: COPD exacerbation. Comparison: November 10, 2021. Portable chest remains unchanged again demonstrating COPD, minimal bibasilar subsegmental atelectasis/scarring, and left lung suture material. Heart not enlarged. No new/acute abnormalities.
[2021-11-16] MEDS: ENOXAPARIN SODIUM SQ SCH (10:00)
[2021-11-16] MEDS: DELTASONE 20 MG PO SCH (10:02)
[2021-11-16] MEDS: Artificial Tears 15 ML OP SCH (10:02)
[2021-11-16] MEDS: Pepcid 20 MG VIAL IV SCH (10:02)
[2021-11-16] MEDS: Imdur 60MG PO SCH (10:03)
[2021-11-16] MEDS: NORVASC 5 MG PO SCH (10:03)
[2021-11-16] MEDS: Mirapex 0.5 MG Tablet PO SCH (10:03)
[2021-11-16] MEDS: LASIX 20 MG PO SCH (10:03)
[2021-11-16] MEDS: Aldactone 25 MG PO SCH (10:04)
[2021-11-16] MEDS: ENTRESTO 49 MG-51 MG TABLET PO SCH (10:04)
[2021-11-16] MEDS: XANAX 1 MG PO SCH (10:04)
[2021-11-16] MEDS: Lopressor 25MG Tab PO SCH (10:04)
[2021-11-16] MEDS: THEOPHYLLINE ER 24HR PO SCH (10:05)
[2021-11-16 12:33] VITALS: BP 134/79; PULSE 80; O2SAT 96
--- NOTE | 2021-11-29 22:11 | PCM.HP ---
History of Present Illness - Chief Complaint Chief Complaint: COPD exacerbation Date: 11/11/21 History of Present Illness: is a 76 year old male. Pt. with chronic copd with continuous oxygen requirements of 3-4 liters per NC, presented to er after failing OP PO antibiotics and steroids with increased sob and hypoxia. Upon presentation it was felt the patient would benefit from intensive IV antibiotics supplemental oxygen addition with slow weaning and iv steroids, with diuresis for found chf symptoms and findings. - Review of Systems Constitutional: No Fever, No Chills Eyes: No Symptoms Ears, Nose, & Throat: No Symptoms Respiratory: Cough, Short Of Breath, Stridor, Wheezing Cardiac: No Chest Pain, No Edema, No Syncope Abdominal/Gastrointestinal: No Abdominal Pain, No Nausea, No Vomiting, No Diarrhea Genitourinary Symptoms: No Dysuria Musculoskeletal: No Back Pain, No Neck Pain Skin: No Rash Neurological: No Dizziness, No Focal Weakness, No Sensory Changes Psychological: No Symptoms Endocrine: No Symptoms Hematologic/Lymphatic: No Symptoms Immunological/Allergic: No Symptoms Medications & Allergies Home Medications: Home Medication List Albuterol 2.5 mg/3 ml Neb [Proventil 2.5 mg/3 ml Neb] 1 neb IH Q6H PRN 02/04/14 [History Confirmed 11/17/21] Aspirin 81 mg PO DAILY 02/04/14 [History Confirmed 11/17/21] Omeprazole 20 MG [Prilosec 20 mg] 20 mg PO BIDAC 02/04/14 [History Confirmed 11/17/21] Nitroglycerin 0.4 mg Tablet [Nitrostat 0.4 MG Tablet] 0.4 mg SL Q5MIN PRN MR X 3 PRN 08/01/16 [History Confirmed 11/17/21] ALPRAZolam 1 MG [Xanax 1 mg] 1 mg PO BID 10/14/18 [History Confirmed 11/17/21] Isosorbide Mononitrate 60 mg [Imdur 60MG] 60 mg PO DAILY 06/01/20 [History Confirmed 11/17/21] Metoprolol Tartrate 25 mg [Lopressor 25MG Tab] 25 mg PO BID 06/01/20 [History Confirmed 11/17/21] Rosuvastatin Calcium 20 mg PO HS 06/01/20 [History Confirmed 11/17/21] Spironolactone 25 mg [Aldactone 25 MG] 12.5 mg PO DAILY 01/25/21 [History Confirmed 11/17/21] Albuterol Sulfate [Proair Digihaler] 2 puffs IH Q6H PRN 03/24/21 [History Confirmed 11/17/21] Budesonide/Glycopyr/Formoterol [Breztri Aerosphere Inhaler] 2 puffs IH BID 03/24/21 [History Confirmed 11/17/21] Amlodipine Besylate 2.5 mg PO DAILY 06/12/21 [History Confirmed 11/17/21] Furosemide 20 mg [Lasix 20 mg] 20 mg PO DAILY 06/12/21 [History Confirmed 11/17/21] Pramipexole Di-HCl [Mirapex] 0.25 mg PO DAILY 06/12/21 [History Confirmed 11/17/21] Sacubitril/Valsartan [Entresto 97 mg-103 mg Tablet] 1 each PO BID 06/12/21 [History Confirmed 11/17/21] Carboxymethylcellulose Sodium [Refresh Liquigel] 1 ml OP HS 09/25/21 [History Confirmed 11/17/21] Latanoprost [Xalatan] 1 ml OP HS 09/25/21 [History Confirmed 11/17/21] Propylene Glycol/Peg 400 [Lubricating Eye Drop] 15 ml OP QID 09/25/21 [History Confirmed 11/17/21] Sucralfate 1 gm [Carafate 1 GM] 1 g PO ACHS #30 tablet 09/27/21 [Rx Confirmed 11/17/21] Prednisone 20 mg [Deltasone 20 mg] 20 mg PO BID #20 tablet 11/20/21 [Rx] Prednisone 20 mg [Deltasone 20 mg] 20 mg PO BID #30 tablet 11/20/21 [Rx] Theophylline Anhydrous [Theophylline ER 24Hr] 400 mg PO BID #60 11/20/21 [Rx] Allergies/Adverse Reactions: Allergies Allergy/AdvReac Type Severity Reaction Status Date / Time nicotine [From [facility]] Allergy Severe Rash Verified 11/10/21 21:52 - Past Medical History Past Medical History: Yes Neurological History: No Pertinent History ENT History: No Pertinent History Cardiac History: Aneurysm, Congestive Heart Failure, Hypertension Respiratory History: COPD, Sleep Apnea Endocrine Medical History: Diabetes Type II Musculoskelatal History: No Pertinent History GI Medical History: No Pertinent History, GERD History: No Pertinent History Pyscho-Social History: Anxiety Male Reproductive Disorders: No Pertinent History Comment: 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 Pt also states he had an increase of SOB and chest pain that he has seen Dr. Mallory for and he has been put on nitro. PT wears 4L O2 AT ALL TIMES - Past Surgical History Past Surgical History: Yes Neuro Surgical History: No Pertinent History Cardiac History: No Pertinent History Respiratory Surgery: Other GI Surgical History: Hernia Repair Genitourinary Surgical Hx: No Pertinent History Musculskeletal Surgical Hx: Orthopedic Surgery Male Surgical History: Vasectomy Other Surgical History: BACK SURGERY, and ear surgery and a left lung biopsy. 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, double hernia repair, - Social History Smoking Status: Former smoker How long have you smoked: 13 Exposure to second hand smoke: No Alcohol: None Drug Use: none - Physical Exam General Appearance: no apparent distress, alert Neurologic Exam: alert, oriented x 3, cooperative, normal mood/affect, nml cerebellar function, nml station & gait, sensation nml, No motor deficits Eye Exam: PERRL/EOMI, eyes nml inspection Ears, Nose, Throat Exam: normal ENT inspection, TMs normal, pharynx normal, moist mucous membranes Neck Exam: normal inspection, non-tender, supple, full range of motion Respiratory Exam: diminished breath sounds, prolonged expirations, rhonchi, wheezing, No respiratory distress Cardiovascular Exam: regular rate/rhythm, normal heart sounds, normal peripheral pulses Gastrointestinal/Abdomen Exam: soft, normal bowel sounds, No tenderness, No mass Back Exam: normal inspection, normal range of motion, No CVA tenderness, No vertebral tenderness Extremity Exam: normal inspection, normal range of motion, pelvis stable Skin Exam: normal color, warm, dry, No rash Lymphatic Exam: No adenopathy Results - Labs Lab/Micro Results: Microbiology 11/10/21 22:20 Blood Culture Gram Stain - Final Blood Not Reportable Blood Culture - Final NO GROWTH 11/10/21 22:00 Blood Culture Gram Stain - Final Blood Not Reportable Blood Culture - Final NO GROWTH Assessment/Plan (1) Acute on chronic respiratory failure with hypoxia Status: Acute Assessment & Plan: increase oxygen support Code(s): J96.21 - ACUTE AND CHRONIC RESPIRATORY FAILURE WITH HYPOXIA (2) COPD exacerbation Status: Acute Assessment & Plan: iv steroids and antibiotics Code(s): J44.1 - CHRONIC OBSTRUCTIVE PULMONARY DISEASE W (ACUTE) EXACERBATION (3) CHF (congestive heart failure) Status: Chronic Qualifiers: Heart failure chronicity: chronic Assessment & Plan: diuresis Code(s): I50.9 - HEART FAILURE, UNSPECIFIED
--- NOTE | 2021-11-29 22:16 | PCM.DS ---
Discharge Summary Date of Admission: 11/10/21 23:36 Date of Discharge: 11/16/21 Admitting Physician: DAV SEALS DO Primary Care Provider: DAV SEALS DO [facility]ies [facility] Allergy (Severe, Verified 11/10/21 21:52) Rash Hospital Summary - Hospital Course Hospital Course: Pt. improved rapidly to near baseline but continued to require greater than his usual oxygen and increased complaints of sob with minimal activity, the chf resolved with essentially a single dose of iv lasix, the copd exacerbation improved slowly, mainly the improvement of oxygen needs. After nearly 1 week of admission the patient was felt to be stable for discharge with slow weaning of oxygen on OP basis. - Vitals & Intake/Output Vital Signs: Vital Signs Temperature 97.5 F 11/16/21 12:00 Pulse Rate 80 11/16/21 12:00 Respiratory Rate 18 11/16/21 12:00 Blood Pressure 134/79 11/16/21 12:00 O2 Sat by Pulse Oximetry 96 11/16/21 12:00 - Lab Result Diagrams: 11/16/21 04:20 11/16/21 04:20 Micro Results-Entire Visit: Microbiology 11/10/21 22:20 Blood Culture Gram Stain - Final Blood Not Reportable Blood Culture - Final NO GROWTH 11/10/21 22:00 Blood Culture Gram Stain - Final Blood Not Reportable Blood Culture - Final NO GROWTH - Procedures and Test Procedures and Tests throughout Hospitalization: Therapy Orders & Screens 11/10/21 23:47 Respiratory Therapy Assessment DAILY Comment: Diagnosis: COPD exacerbation 11/11/21 00:05 Oxygen NASAL CANNULA 4 lpm Comment: O2 SAT 88% ON RM AIR Diagnosis: COPD exacerbation 11/11/21 00:17 RT Screen per Nursing Assess ONCE Comment: Protocol Order Physician Instructions: Greater than 3 points order RT Admission Screen Reason For Exam: Triggered on Admission Diagnosis: COPD exacerbation Diagnosis: COPD exacerbation Pneumonia: Yes Home O2: Yes Asthma: No CHF: No Home CPAP/BIPAP: No Home Nebs/MDI: Yes Total Points: 13 11/11/21 18:53 BiPap/CPAP ROUTINE Comment: AVAPS MODE TO SUBSTITUTE FOR PT'S HOME TRILOGY Diagnosis: COPD exacerbation 11/16/21 09:39 Qualify for Home Oxygen TODAY Comment: QUALIFY FOR 5 L (PATIENT ONLY WEARS 4 AT HOME) Diagnosis: COPD exacerbation Discharge Exam General Appearance: no apparent distress, alert Neurologic Exam: alert, oriented x 3, cooperative, normal mood/affect, nml cerebellar function, sensation nml, No motor deficits Eye Exam: PERRL, EOMI, eyes nml inspection Ears, Nose, Throat Exam: normal ENT inspection, pharynx normal, moist mucous membranes Neck Exam: normal inspection, non-tender, supple, full range of motion Respiratory Exam: prolonged expirations, rhonchi, wheezing, No respiratory distress Cardiovascular Exam: regular rate/rhythm, normal heart sounds Gastrointestinal/Abdomen Exam: soft, No tenderness, No mass Male Genitalia Exam: deferred Rectal Exam: deferred Back Exam: normal inspection, normal range of motion, No CVA tenderness, No vertebral tenderness Extremity Exam: normal inspection, normal range of motion Skin Exam: normal color, warm, dry Final Diagnosis/Problem List - Final Discharge Diagnosis/Problem (1) Acute on chronic respiratory failure with hypoxia Status: Acute Assessment & Plan: improved Code(s): J96.21 - ACUTE AND CHRONIC RESPIRATORY FAILURE WITH HYPOXIA (2) COPD exacerbation Status: Acute Assessment & Plan: improved Code(s): J44.1 - CHRONIC OBSTRUCTIVE PULMONARY DISEASE W (ACUTE) EXACERBATION (3) CHF (congestive heart failure) Status: Chronic Assessment & Plan: resolved Code(s): I50.9 - HEART FAILURE, UNSPECIFIED - Discharge Discharge Date: 11/16/21 Disposition: Home, Self-Care Condition: Stable Prescriptions: No Action Omeprazole 20 MG [Prilosec 20 mg] 20 mg PO BIDAC Albuterol 2.5 mg/3 ml Neb [Proventil 2.5 mg/3 ml Neb] 1 neb IH Q6H PRN PRN Reason: sob Aspirin 81 mg PO DAILY Nitroglycerin 0.4 mg Tablet [Nitrostat 0.4 MG Tablet] 0.4 mg SL Q5MIN PRN MR X 3 PRN PRN Reason: Chest Pain ALPRAZolam 1 MG [Xanax 1 mg] 1 mg PO BID Isosorbide Mononitrate 60 mg [Imdur 60MG] 60 mg PO DAILY Metoprolol Tartrate 25 mg [Lopressor 25MG Tab] 25 mg PO BID Rosuvastatin Calcium 20 mg PO HS Spironolactone 25 mg [Aldactone 25 MG] 12.5 mg PO DAILY Budesonide/Glycopyr/Formoterol [Breztri Aerosphere Inhaler] 2 puffs IH BID Albuterol Sulfate [Proair Digihaler] 2 puffs IH Q6H PRN PRN Reason: sob Pramipexole Di-HCl [Mirapex] 0.25 mg PO DAILY Sacubitril/Valsartan [Entresto 97 mg-103 mg Tablet] 1 each PO BID Furosemide 20 mg [Lasix 20 mg] 20 mg PO DAILY Amlodipine Besylate 2.5 mg PO DAILY Propylene Glycol/Peg 400 [Lubricating Eye Drop] 15 ml OP QID Latanoprost [Xalatan] 1 ml OP HS Carboxymethylcellulose Sodium [Refresh Liquigel] 1 ml OP HS Sucralfate 1 gm [Carafate 1 GM] 1 g PO ACHS #30 tablet Theophylline Anhydrous [Theophylline ER 24Hr] 400 mg PO BID #60 Prednisone 20 mg [Deltasone 20 mg] 20 mg PO BID #20 tablet Prednisone 20 mg [Deltasone 20 mg] 20 mg PO BID #30 tablet Instructions: Azithromycin (Systemic), Chronic Obstructive Pulmonary Disease (COPD) (DC), Oxygen Therapy, Adult (DC), Amoxicillin and Clavulanate, Prednisone Additional Instructions: REFERRAL WAS FAXED TO [facility]. THEY WILL CONTACT YOU TO ARRANGE A VISIT. THEIR PHONE NUMBER IS [phone] [facility] HOME Follow up with: ANGÉLICA STEIN [Family Provider] - 12/13/21 2:30 pm (see at already scheduled november appointment) CHENTE GASTON MD [ACTIVE STAFF] - 11/22/21 10:30 am DAV SEALS DO [Primary Care Provider] - 11/25/21 3:00 pm Forms: Discharge Instructions, Patient Portal Information
== END 2021-11-16 12:50 | disposition home or self-care (01) ==
LOC: ED 21:46 → MED SURG 23:36
PROVIDERS: ADMIT Family Medicine; ATTEND Family Medicine
DX: J96.21 Acute and chronic respiratory failure with hypoxia (principal); J44.1 Chronic obstructive pulmonary disease with (acute) exacerbation; D72.829 Elevated white blood cell count, unspecified; E11.9 Type 2 diabetes mellitus without complications; I11.0 Hypertensive heart disease with heart failure; I50.9 Heart failure, unspecified; Z79.899 Other long term (current) drug therapy; Z99.81 Dependence on supplemental oxygen
CPT/HCPCS: 0241U; 36000; 36415; 71045; 80048; 80053; 81015; 82947; 83036; 83880; 84484; 85025; 85027; 87040; 93005; 93041; 93268; 94002; 94003; 94640; 94760; 94762; 96365; 96368; 96374; 99285; G0378; 96360; J0456; J0696; J1650; J1817; J2920; J2930; A9270-GY

== ENCOUNTER 2021-11-17 16:16 | Observation (INO) | payer MEDICARE ==
[2021-11-17] MEDS ORDERED: DUONEB 0.5-3 MG/3 ml Neb IH ONE ×2 (16:23→16:26)
--- NOTE | 2021-11-17 16:30 | ERPHSYRPT ---
- History of Present Illness Time Seen by Provider: 11/17/21 16:22 Source: patient, EMS Exam Limitations: no limitations Patient Subjective Stated Complaint: PT states "I have been short of breath ever since I was released day before yesterday." Triage Nursing Assessment: PT presented alert and oriented X 3, skin pwd. pt able to speak in clear full sentences pt tachypneic, pt skin clammy. PT has duo neb on with iv in place in right hand. pt resting comfortably on the bed. Physician History: 76 yo with CHF, CAD, COPD chronic respiratory failure on 5 L discharged 2 days ago presented with increased SOB/Wheezing/chest tightness/heaviness since discharge. given solumedrol/duoneb [employer]ORERO[employer] ATTENDANT by EMS but still have sob. no fever /chills but chrnic cough. Timing/Duration: day(s) (2), constant, gradual onset, worse Activities at Onset: activity, rest Severity of Dyspnea-Max: severe Severity of Dyspnea-Current: severe Possible Cause: frequent episodes Modifying Factors: Improves With: albuterol nebulizer, oxygen. Worsens With: coughing Associated Symptoms: anxiety, cough, chest pain/discomfort, wheezing, heaviness, No edema Allergies/Adverse Reactions: nicotine [From [employer]] Allergy (Severe, Verified 11/10/21 21:52) Rash Home Medications: Albuterol 2.5 mg/3 ml Neb [Proventil 2.5 mg/3 ml Neb] 1 neb IH Q6H PRN 02/04/14 [History] Aspirin 81 mg PO DAILY 02/04/14 [History] Omeprazole 20 MG [Prilosec 20 mg] 20 mg PO BIDAC 02/04/14 [History] Nitroglycerin 0.4 mg Tablet [Nitrostat 0.4 MG Tablet] 0.4 mg SL Q5MIN PRN MR X 3 PRN 08/01/16 [History] ALPRAZolam 1 MG [Xanax 1 mg] 1 mg PO BID 10/14/18 [History] Theophylline Anhydrous 300 mg PO BID 10/14/18 [History] Isosorbide Mononitrate 60 mg [Imdur 60MG] 60 mg PO DAILY 06/01/20 [History] Metoprolol Tartrate 25 mg [Lopressor 25MG Tab] 25 mg PO BID 06/01/20 [History] Rosuvastatin Calcium 20 mg PO HS 06/01/20 [History] Spironolactone 25 mg [Aldactone 25 MG] 12.5 mg PO DAILY 01/25/21 [History] Albuterol Sulfate [Proair Digihaler] 2 puffs IH Q6H PRN 03/24/21 [History] Budesonide/Glycopyr/Formoterol [Breztri Aerosphere Inhaler] 2 puffs IH BID 03/24/21 [History] Amlodipine Besylate 2.5 mg PO DAILY 06/12/21 [History] Furosemide 20 mg [Lasix 20 mg] 20 mg PO DAILY 06/12/21 [History] Pramipexole Di-HCl [Mirapex] 0.25 mg PO DAILY 06/12/21 [History] Sacubitril/Valsartan [Entresto 97 mg-103 mg Tablet] 1 each PO BID 06/12/21 [History] Prednisone 5 mg [Deltasone 5 mg] 5 mg PO DAILY 07/12/21 [History] Carboxymethylcellulose Sodium [Refresh Liquigel] 1 ml OP HS 09/25/21 [History] Latanoprost [Xalatan] 1 ml OP HS 09/25/21 [History] Propylene Glycol/Peg 400 [Lubricating Eye Drop] 15 ml OP QID 09/25/21 [History] Hx Tetanus, Diphtheria Vaccination/Date Given: No Hx Influenza Vaccination/Date Given: Yes Hx Pneumococcal Vaccination/Date Given: Yes Immunizations Up to Date: Yes Travel Risk - International Travel Have you traveled outside of the country in past 3 weeks: No - Coronavirus Screening Are you exhibiting any of the following symptoms?: No Close contact with a COVID-19 positive Pt in past 14-21 Days: No - Vaccine Status Have you recieved a Covid-19 vaccination: No - Review of Systems Constitutional: Fatigue, Weakness Eyes: No Symptoms Ears, Nose, & Throat: No Symptoms Respiratory: Cough, Dyspnea, Dyspnea on Exertion (GUERRA), Wheezing Cardiac: No Symptoms Abdominal/Gastrointestinal: No Symptoms Genitourinary Symptoms: No Symptoms Musculoskeletal: No Symptoms Skin: No Symptoms Neurological: No Symptoms Psychological: Anxiety Endocrine: No Symptoms Hematologic/Lymphatic: No Symptoms Immunological/Allergic: No Symptoms - Past Medical History Pertinent Past Medical History: Yes Neurological History: No Pertinent History ENT History: No Pertinent History Cardiac History: Aneurysm, Congestive Heart Failure, Hypertension Respiratory History: COPD, Sleep Apnea Endocrine Medical History: Diabetes Type II Musculoskeletal History: No Pertinent History GI Medical History: No Pertinent History, GERD History: No Pertinent History Psycho-Social History: Anxiety Male Reproductive Disorders: No Pertinent History Other Medical History: 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 Pt also states he had an increase of SOB and chest pain that he has seen Dr. Mallory for and he has been put on nitro. PT wears 4L O2 AT ALL TIMES - Past Surgical History Past Surgical History: Yes Neuro Surgical History: No Pertinent History Cardiac: No Pertinent History Respiratory: Other Gastrointestinal: Hernia Repair Genitourinary: No Pertinent History Musculoskeletal: Orthopedic Surgery Male Surgical History: Vasectomy Other Surgical History: BACK SURGERY, and ear surgery and a left lung biopsy. 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, double hernia repair, - Social History Smoking Status: Former smoker How long have you smoked: 13 Exposure to second hand smoke: No Drug Use: none Patient Lives Alone: No - Nursing Vital Signs Nursing Vital Signs: Initial Vital Signs Temperature 98.2 F 11/17/21 16:16 Pulse Rate 98 H 11/17/21 16:16 Respiratory Rate 20 11/17/21 16:16 Blood Pressure 156/100 11/17/21 16:16 O2 Sat by Pulse Oximetry 95 11/17/21 16:16 Pain Scale Pain Intensity 0 - Physical Exam General Appearance: no apparent distress, alert Eye Exam: PERRL/EOMI Ears, Nose, Throat Exam: hearing grossly normal, normal ENT inspection, normal pharynx, sinus pain/drainage Neck Exam: normal inspection, supple, full range of motion Respiratory Exam: airway intact, diminished breath sounds, accessory muscle use, rhonchi, wheezing Cardiovascular/Chest Exam: normal heart sounds, regular rate/rhythm Abdominal/Gastrointestinal Exam: soft, normal bowel sounds, No tenderness Extremity Exam: non-tender, normal range of motion Neurologic Exam: alert, oriented x 3, cooperative Skin Exam: normal color SpO2 Interpretation: O2 applied SpO2: 95 O2 Delivery: Nasal Cannula (5L) - Course EKG Interpreted by Me: RATE, Sinus Rhythm, Right Mcbee Deviation, NORMAL INTERVALS, Right Bundle Branch Block, Non-specific ST Changes Ordered Tests: Active Orders 24 hr Category Date Time Status Bedrest ROUTINE Activity 11/17/21 19:50 Active Up With Assistance ROUTINE Activity 11/17/21 19:[address] Reporter STAT Care 11/17/21 16:24 Completed Code Status Order ROUTINE Care 11/17/21 19:50 Active EKG-ER Only STAT Care 11/17/21 16:23 Completed Fall Protocol Q1H Care 11/17/21 19:50 Active IV Care Q6H Care 11/17/21 19:50 Active IV Insertion STAT Care 11/17/21 16:23 Completed Oxygen-ED Only Nasal Cannula 5 lpm Care 11/17/21 16:23 Completed POCT Glucose Check ACHS Care 11/17/21 19:[address] in Observation ROUTINE Care 11/17/21 19:50 Active Roderick Jones, Apply ROUTINE Care 11/17/21 19:50 Active Weight,Daily 0600 Care 11/17/21 19:50 Active Heart-Healthy Diet Diet 11/17/21 Breakfast Active CHEST 1 VIEW (PORTABLE) Stat Exams 11/17/21 16:33 Completed BLOOD CULTURE Stat Lab 11/17/21 14:43 Received CBC W DIFF AM.LAB Lab 11/18/21 04:00 Ordered CBC W DIFF Stat Lab 11/17/21 14:38 Completed CMP AM.LAB Lab 11/18/21 04:00 Ordered CMP Stat Lab 11/17/21 14:38 Completed Lactic Acid Stat Lab 11/17/21 16:40 Completed MAGNESIUM Stat Lab 11/17/21 14:38 Completed Manual Differential NC Stat Lab 11/17/21 14:38 Completed NT PRO BNP Stat Lab 11/17/21 14:38 Completed TROPONIN Q3H Lab 11/17/21 14:38 Completed TROPONIN Q3H Lab 11/17/21 19:50 Received TROPONIN Q3H Lab 11/17/21 22:30 Ordered TROPONIN Q3H Lab 11/18/21 01:30 Ordered TROPONIN Q3H Lab 11/18/21 04:30 Ordered Oxygen Nasal Cannula 5 lpm RT 11/17/21 19:50 Active Transfer Order Routine Transfer 11/17/21 Completed Medication Summary Generic Name Dose Route Start Last Admin Trade Name Freq PRN Reason Stop Dose Admin Acetaminophen 650 mg 11/17/21 19:50 Acetaminophen 325 Mg Tablet PO 12/17/21 19:49 Q4H PRN PRN PAIN AND/OR FEVER Albuterol/Ipratropium 3 ml 11/17/21 19:50 11/17/21 20:18 Ipratropium/Albuterol Sulfate 3 Ml Ampul.Neb 12/17/21 19:49 Not Given Q6HRT [facility] Methylprednisolone Sodium 0 mg 11/18/21 00:00 Succinate 60 mg/ Sterile Water IV 12/18/21 00:00 2 ml Q6HT [facility] Insulin Human Lispro 0 unit 11/17/21 19:50 Insulin Lispro 1 Unit SQ 12/17/21 19:49 UD PRN HYPERGLYCEMIA Pantoprazole Sodium 40 mg 11/18/21 10:00 Pantoprazole 40 Mg Vial IV 12/18/21 09:59 Q24H10 [facility] Discontinued Medications Generic Name Dose Route Start Last Admin Trade Name Freq PRN Reason Stop Dose Admin Albuterol/Ipratropium 3 ml 11/17/21 16:23 11/17/21 16:27 Ipratropium/Albuterol Sulfate 3 Ml Ampul.Neb IH 11/17/21 16:24 3 ml STAT ONE Administration Albuterol/Ipratropium Confirm 11/17/21 16:26 Ipratropium/Albuterol Sulfate 3 Ml Ampul.Neb Administered 11/17/21 16:27 Dose 3 ml IH .STK-MED ONE Lab/Rad Data: Laboratory Result Diagrams 11/17/21 14:38 11/17/21 14:38 Laboratory Results 11/17/21 11/17/21 11/17/21 Range/Units 17:40 16:56 16:40 WBC (4.0-10.5) K/mm3 RBC (4.1-5.6) M/mm3 Hgb (12.5-18.0) gm/dl Hct (42-50) % MCV (78-100) fl MCH (26-32) pg MCHC (32-36) g/dl RDW (11.5-14.0) % Plt Count (150-450) K/mm3 MPV (7.5-11.0) fl Segmented Neutrophils (36.-66.) % Lymphocytes (Manual) (24-44) % Monocytes (Manual) (0.0-12.0) % Metamyelocytes % Platelet Estimate (NORMAL) RBC Morphology Sodium (137-145) mmol/L Potassium (3.5-5.1) mmol/L Chloride (98-107) mmol/L Carbon Dioxide (22-30) mmol/L Anion Gap (5-15) MEQ/L BUN (9-20) mg/dL Creatinine (0.66-1.25) mg/dL Estimated GFR ML/MIN Glucose (74-106) mg/dL Lactic Acid 0.9 (0.4-2.0) Calcium (8.4-10.2) mg/dL Magnesium (1.6-2.3) mg/dL Total Bilirubin (0.2-1.3) mg/dL AST (17-59) U/L ALT (0-50) U/L Alkaline Phosphatase (38-126) U/L Troponin I (0.000-0.034) ng/mL NT-Pro-B Natriuret Pep (0-1800) pg/mL Serum Total Protein (6.3-8.2) g/dL Albumin (3.5-5.0) g/dL Urinalys Dipstick Clnc MAIN LAB Urine Color YELLOW (YELLOW) Urine Appearance CLEAR (CLEAR) Urine pH 7.5 (5-6) Ur Specific [place] 1.020 (1.005-1.025) POC Urine Protein Conf NEGATIVE (Negative) Urine Ketones NEGATIVE (NEGATIVE) Urine Nitrite NEGATIVE (NEGATIVE) Urine Bilirubin NEGATIVE (NEGATIVE) Urine Urobilinogen 0.2 (0-1) mg/dL Urine Leukocytes NEGATIVE (NEGATIVE) Urine WBC (Auto) NONE (0-5) /HPF Urine RBC (Auto) NONE (0-2) /HPF U Epithel Cells (Auto) NONE (FEW) /HPF Urine Bacteria (Auto) NONE (NEGATIVE) /HPF Urine RBC NEGATIVE (0-5) Johan/ul Urine Mucus (Auto) SLIGHT (NEGATIVE) /HPF Ur Culture Indicated? NO Urine Glucose NEGATIVE (NEGATIVE) mg/dL Influenza Type A Ag NEGATIVE (NEGATIVE) Influenza Type B Ag NEGATIVE (NEGATIVE) RSV (PCR) NEGATIVE (Negative) SARS-CoV-2 (PCR) NEGATIVE (NEGATIVE) 11/17/21 11/17/21 11/17/21 Range/Units 14:38 14:38 14:38 WBC 11.7 H (4.0-10.5) K/mm3 RBC 5.41 (4.1-5.6) M/mm3 Hgb 14.8 (12.5-18.0) gm/dl Hct 45.8 (42-50) % MCV 84.7 (78-100) fl MCH 27.4 (26-32) pg MCHC 32.3 (32-36) g/dl RDW 15.9 H (11.5-14.0) % Plt Count 325 (150-450) K/mm3 MPV 9.3 (7.5-11.0) fl Segmented Neutrophils 93 H (36.-66.) % Lymphocytes (Manual) 3 L (24-44) % Monocytes (Manual) 2 (0.0-12.0) % Metamyelocytes 2 % Platelet Estimate NORMAL (NORMAL) RBC Morphology NORMAL Sodium 135 L (137-145) mmol/L Potassium 4.4 (3.5-5.1) mmol/L Chloride 96 L (98-107) mmol/L Carbon Dioxide 34 H (22-30) mmol/L Anion Gap 8.7 (5-15) MEQ/L BUN 18 (9-20) mg/dL Creatinine 0.56 L (0.66-1.25) mg/dL Estimated GFR > 60.0 ML/MIN Glucose 148 H (74-106) mg/dL Lactic Acid (0.4-2.0) Calcium 9.3 (8.4-10.2) mg/dL Magnesium 2.4 H (1.6-2.3) mg/dL Total Bilirubin 1.30 (0.2-1.3) mg/dL AST 31 (17-59) U/L ALT 49 (0-50) U/L Alkaline Phosphatase 47 (38-126) U/L Troponin I < 0.012 (0.000-0.034) ng/mL NT-Pro-B Natriuret Pep 294 (0-1800) pg/mL Serum Total Protein 6.1 L (6.3-8.2) g/dL Albumin 3.6 (3.5-5.0) g/dL Urinalys Dipstick Clnc Urine Color (YELLOW) Urine Appearance (CLEAR) Urine pH (5-6) Ur Specific [place] (1.005-1.025) POC Urine Protein Conf (Negative) Urine Ketones (NEGATIVE) Urine Nitrite (NEGATIVE) Urine Bilirubin (NEGATIVE) Urine Urobilinogen (0-1) mg/dL Urine Leukocytes (NEGATIVE) Urine WBC (Auto) (0-5) /HPF Urine RBC (Auto) (0-2) /HPF U Epithel Cells (Auto) (FEW) /HPF Urine Bacteria (Auto) (NEGATIVE) /HPF Urine RBC (0-5) Johan/ul Urine Mucus (Auto) (NEGATIVE) /HPF Ur Culture Indicated? Urine Glucose (NEGATIVE) mg/dL Influenza Type A Ag (NEGATIVE) Influenza Type B Ag (NEGATIVE) RSV (PCR) (Negative) SARS-CoV-2 (PCR) (NEGATIVE) - Progress Progress: improved Air Movement: fair Progress Note: 11/17/21 18:37 given another neb treatment and is better on re evaluation. cxr no acute findings and not in CHF . 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 Blood Culture(s) Obtained: Yes Antibiotics given: No Discussed with : Aron Will see patient in: hospital (observation) Counseled pt/family regarding: lab results, diagnosis, rad results - Departure Departure Disposition: Observation Clinical Impression: COPD exacerbation Condition: Stable Critical Care Time: No
--- NOTE | 2021-11-17 16:47 | XRAY ---
Indication: Short of breath. Comparison: One day earlier. Portable chest remains unchanged again demonstrating COPD, minimal bibasilar subsegmental atelectasis/scarring, and left lung suture material. Heart not enlarged. No new/acute abnormalities.
[2021-11-17 16:55] LABS: Hematocrit 45.8 % (42-50); Hemoglobin 14.8 gm/dl (12.5-18.0); Mean Cell Volume 84.7 fl (78-100); Mean Corpuscular Hemoglobin 27.4 pg (26-32); Mean Corpuscular Hgb Concent. 32.3 g/dl (32-36); Mean Platelet Volume 9.3 fl (7.5-11.0); Platelet Count 325 K/mm3 (150-450); Red Blood Count 5.41 M/mm3 (4.1-5.6); Red Cell Distribution Width 15.9 % (11.5-14.0); White Blood Count 11.7 K/mm3 (4.0-10.5)
[2021-11-17 17:07] LABS: Appearance CLEAR (CLEAR); Bilirubin NEGATIVE (NEGATIVE); Dipstick done @ ? MAIN LAB; Glucose NEGATIVE (NEGATIVE); Ketones NEGATIVE (NEGATIVE); Nitrite NEGATIVE (NEGATIVE); Ph 7.5 (5-6); Protein,Urine Dip NEGATIVE (Negative); RBC NEGATIVE Ery/ul (0-5); Urobilinogen 0.2 mg/dL (0-1)
[2021-11-17 17:08] LABS: ALBUMIN 3.6 g/dL (3.5-5.0); ALKALINE PHOSPHATASE 47 U/L (38-126); ANION GAP 8.7 MEQ/L (5-15); BLOOD UREA NITROGEN 18 mg/dL (9-20); CHLORIDE 96 mmol/L (98-107); Calcium 9.3 mg/dL (8.4-10.2); Carbon Dioxide 34 mmol/L (22-30); Creatinine 1 0.56 mg/dL (0.66-1.25); EST GLOMERULAR FILTRATION RATE > 60.0 ML/MIN; Glucose 148 mg/dL (74-106); MAGNESIUM 2.4 mg/dL (1.6-2.3); NT PRO BNP 294 pg/mL (0-1800); Potassium 4.4 mmol/L (3.5-5.1); SGOT/AST 31 U/L (17-59); SGPT/ALT 49 U/L (0-50); SODIUM 135 mmol/L (137-145); Total Protein 6.1 g/dL (6.3-8.2)
[2021-11-17 17:09] LABS: Mucus SLIGHT /HPF (NEGATIVE)
[2021-11-17 17:15] LABS: Urine Cultured Indicated? NO
[2021-11-17 18:29] LABS: Lymphocytes 3 % (24-44); Metamyelocyte 2 %; Monocyte 2 % (0.0-12.0); Platelet Estimate NORMAL (NORMAL); Total Cells Counted 100
[2021-11-17 18:37] LABS: INFLUENZA A NEGATIVE (NEGATIVE); INFLUENZA B NEGATIVE (NEGATIVE); RESPIRATORY SYNCTIAL VIRUS NEGATIVE (Negative); SARS-CoV-2 Xpert Express NEGATIVE (NEGATIVE)
[2021-11-17] MEDS ORDERED: TYLENOL 325 MG PO PRN (19:50)
[2021-11-17] MEDS ORDERED: DUONEB 0.5-3 MG/3 ml Neb IH SCH (19:50)
[2021-11-17] MEDS ORDERED: THEOPHYLLINE ER 24HR PO SCH (22:00)
[2021-11-17] MEDS ORDERED: solu-MEDROL ONE (22:22)
[2021-11-17] MEDS: DUONEB 0.5-3 MG/3 ml Neb IH SCH (22:46)
[2021-11-17] MEDS: Artificial Tears 15 ML OP SCH (23:07)
[2021-11-17] MEDS: Xalatan OP SCH (23:08)
[2021-11-17] MEDS: XANAX 1 MG PO SCH (23:10)
[2021-11-17] MEDS: ZOCOR 20MG PO SCH (23:10)
[2021-11-17] MEDS: ENTRESTO 49 MG-51 MG TABLET PO SCH (23:10)
[2021-11-17] MEDS: Lopressor 25MG Tab PO SCH (23:10)
[2021-11-17] MEDS ORDERED: THEOPHYLLINE ER 24HR PO ONE (23:31)
[2021-11-18] MEDS ORDERED: solu-MEDROL 60 MG, Sterile H2O 10 ml 2 ML IV SCH ×2
[2021-11-18] MEDS ORDERED: Sterile H2O 10 ml IJ ONE (00:04)
[2021-11-18] MEDS: solu-MEDROL 80 MG, Sterile H2O 10 ml 2 ML IV SCH ×8 (00:08→18:14)
[2021-11-18] MEDS: DUONEB 0.5-3 MG/3 ml Neb IH SCH ×6 (03:30→23:17)
[2021-11-18 05:09] LABS: Hematocrit 43.4 % (42-50); Hemoglobin 14.1 gm/dl (12.5-18.0); Mean Cell Volume 84.8 fl (78-100); Mean Corpuscular Hemoglobin 27.5 pg (26-32); Mean Corpuscular Hgb Concent. 32.5 g/dl (32-36); Mean Platelet Volume 9.2 fl (7.5-11.0); Platelet Count 302 K/mm3 (150-450); Red Blood Count 5.12 M/mm3 (4.1-5.6); White Blood Count 11.2 K/mm3 (4.0-10.5)
[2021-11-18 05:46] LABS: ALBUMIN 3.2 g/dL (3.5-5.0); ALKALINE PHOSPHATASE 37 U/L (38-126); ANION GAP 8.5 MEQ/L (5-15); BLOOD UREA NITROGEN 20 mg/dL (9-20); CHLORIDE 96 mmol/L (98-107); Calcium 8.6 mg/dL (8.4-10.2); Carbon Dioxide 34 mmol/L (22-30); Creatinine 1 0.56 mg/dL (0.66-1.25); EST GLOMERULAR FILTRATION RATE > 60.0 ML/MIN; Glucose 138 mg/dL (74-106); Potassium 4.3 mmol/L (3.5-5.1); SGOT/AST 26 U/L (17-59); SGPT/ALT 40 U/L (0-50); SODIUM 134 mmol/L (137-145); Total Protein 5.6 g/dL (6.3-8.2)
[2021-11-18] MEDS ORDERED: solu-MEDROL ONE (06:05)
[2021-11-18 07:49] LABS: Lymphocytes 7 % (24-44); Total Cells Counted 100
[2021-11-18 07:56] LABS: Platelet Estimate NORMAL (NORMAL)
[2021-11-18] MEDS: ENTRESTO 49 MG-51 MG TABLET PO SCH ×2 (09:14→21:40)
[2021-11-18] MEDS: Lopressor 25MG Tab PO SCH ×2 (09:15→21:40)
[2021-11-18] MEDS: XANAX 1 MG PO SCH ×2 (09:16→21:41)
[2021-11-18] MEDS ORDERED: THEOPHYLLINE ER 24HR PO SCH (10:00)
[2021-11-18] MEDS ORDERED: PROTONIX 40 MG IV IV SCH (10:00)
[2021-11-18] MEDS: Advair Hfa 115/21 Common canister IH SCH ×2 (10:37→19:15)
--- NOTE | 2021-11-18 19:19 | PCM.HP ---
History of Present Illness - Chief Complaint Chief Complaint: COPD exacerbation History of Present Illness: is a 76 year old male with oxygen dependent COPD and CHF who presented to ER with shortness of breath. He was just discharged from [facility] for COPD exacerbation 2 days prior and states he has been very sob since discharge.He denies chest pain or productive cough. States constipated,denies fever or abd pain. - Review of Systems Constitutional: Fatigue Eyes: No Symptoms Ears, Nose, & Throat: No Symptoms Respiratory: Short Of Breath, Other (GUERRA) Cardiac: No Symptoms Abdominal/Gastrointestinal: Constipation, Appetite Changes (not feeling like a full mealjust having fruis) Genitourinary Symptoms: No Symptoms Musculoskeletal: No Symptoms Skin: No Symptoms Neurological: No Symptoms Medications & Allergies Home Medications: Home Medication List Albuterol 2.5 mg/3 ml Neb [Proventil 2.5 mg/3 ml Neb] 1 neb IH Q6H PRN 02/04/14 [History Confirmed 11/17/21] Aspirin 81 mg PO DAILY 02/04/14 [History Confirmed 11/17/21] Omeprazole 20 MG [Prilosec 20 mg] 20 mg PO BIDAC 02/04/14 [History Confirmed 11/17/21] Nitroglycerin 0.4 mg Tablet [Nitrostat 0.4 MG Tablet] 0.4 mg SL Q5MIN PRN MR X 3 PRN 08/01/16 [History Confirmed 11/17/21] ALPRAZolam 1 MG [Xanax 1 mg] 1 mg PO BID 10/14/18 [History Confirmed 11/17/21] Theophylline Anhydrous 300 mg PO BID 10/14/18 [History Confirmed 11/17/21] Isosorbide Mononitrate 60 mg [Imdur 60MG] 60 mg PO DAILY 06/01/20 [History Confirmed 11/17/21] Metoprolol Tartrate 25 mg [Lopressor 25MG Tab] 25 mg PO BID 06/01/20 [History Confirmed 11/17/21] Rosuvastatin Calcium 20 mg PO HS 06/01/20 [History Confirmed 11/17/21] Spironolactone 25 mg [Aldactone 25 MG] 12.5 mg PO DAILY 01/25/21 [History Confirmed 11/17/21] Albuterol Sulfate [Proair Digihaler] 2 puffs IH Q6H PRN 03/24/21 [History Confirmed 11/17/21] Budesonide/Glycopyr/Formoterol [Breztri Aerosphere Inhaler] 2 puffs IH BID 03/24/21 [History Confirmed 11/17/21] Amlodipine Besylate 2.5 mg PO DAILY 06/12/21 [History Confirmed 11/17/21] Furosemide 20 mg [Lasix 20 mg] 20 mg PO DAILY 06/12/21 [History Confirmed 11/17/21] Pramipexole Di-HCl [Mirapex] 0.25 mg PO DAILY 06/12/21 [History Confirmed 11/17/21] Sacubitril/Valsartan [Entresto 97 mg-103 mg Tablet] 1 each PO BID 06/12/21 [History Confirmed 11/17/21] Prednisone 5 mg [Deltasone 5 mg] 5 mg PO DAILY 07/12/21 [History Confirmed 11/17/21] Carboxymethylcellulose Sodium [Refresh Liquigel] 1 ml OP HS 09/25/21 [History Confirmed 11/17/21] Latanoprost [Xalatan] 1 ml OP HS 09/25/21 [History Confirmed 11/17/21] Propylene Glycol/Peg 400 [Lubricating Eye Drop] 15 ml OP QID 09/25/21 [History Confirmed 11/17/21] Sucralfate 1 gm [Carafate 1 GM] 1 g PO ACHS #30 tablet 09/27/21 [Rx C onfirmed 11/17/21] Amox Tr/Potass Clav. 875 mg [Augmentin 875-125 Tablet] 875 mg PO BID 10 Days #20 tablet 11/16/21 [Rx Confirmed 11/17/21] Azithromycin [Azithromycin 250 mg Pack] 250 mg PO UD #6 tablet 11/16/21 [Rx Confirmed 11/17/21] Prednisone 20 mg [Deltasone 20 mg] 80 mg PO DAILY 5 Days #20 tablet 11/16/21 [Rx Confirmed 11/17/21] Allergies/Adverse Reactions: Allergies Allergy/AdvReac Type Severity Reaction Status Date / Time nicotine [From Nicoderm CQ] Allergy Severe Rash Verified 11/10/21 21:52 - Past Medical History Past Medical History: Yes Neurological History: No Pertinent History ENT History: No Pertinent History Cardiac History: Aneurysm, Congestive Heart Failure, Hypertension Respiratory History: COPD, Sleep Apnea, Other (oxygen depenant) Endocrine Medical History: Diabetes Type II Musculoskelatal History: No Pertinent History GI Medical History: No Pertinent History, GERD History: No Pertinent History Pyscho-Social History: Anxiety Male Reproductive Disorders: No Pertinent History Comment: 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 Pt also states he had an increase of SOB and chest pain that he has seen Dr. Mallory for and he has been put on nitro. PT wears 4L O2 AT ALL TIMES - Past Surgical History Past Surgical History: Yes Neuro Surgical History: No Pertinent History Cardiac History: No Pertinent History Respiratory Surgery: Other GI Surgical History: Hernia Repair Genitourinary Surgical Hx: No Pertinent History Musculskeletal Surgical Hx: Orthopedic Surgery Male Surgical History: Vasectomy Other Surgical History: BACK SURGERY, and ear surgery and a left lung biopsy. 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, double hernia repair, - Social History Smoking Status: Former smoker How long have you smoked: 13 Exposure to second hand smoke: No Alcohol: None Drug Use: none - Physical Exam Vital Signs: Vital Signs - 24 hr Temp Pulse Resp BP Pulse Ox 11/18/21 16:00 97.5 F 80 28 H 129/79 90 L 11/18/21 14:14 88 24 94 L 11/18/21 12:00 97.5 F 87 26 H 123/77 98 11/18/21 11:05 88 22 97 11/18/21 08:00 97.5 F 81 27 H 134/71 91 L 11/18/21 07:25 73 18 88 L 11/18/21 03:32 98.2 F 80 26 H 133/79 95 11/18/21 03:30 81 21 94 L 11/18/21 00:00 57 L 20 98 11/17/21 22:50 96 H 24 89 L 11/17/21 20:19 95 11/17/21 20:18 98.2 F 92 H 22 136/96 93 L General Appearance: mild distress (conversational dyspnea,sitting straight up in bed) Neurologic Exam: alert, oriented x 3, cooperative Eye Exam: eyes nml inspection Ears, Nose, Throat Exam: normal ENT inspection Neck Exam: normal inspection Respiratory Exam: diminished breath sounds, prolonged expirations, wheezing (left base) Gastrointestinal/Abdomen Exam: distention (mild ,soft nontender) Extremity Exam: normal inspection Skin Exam: normal color, warm, dry Results - Labs Lab/Micro Results: Lab Results-Last 24 Hours 11/17/21 11/17/21 11/17/21 Range/Units 19:50 22:13 22:35 WBC (4.0-10.5) K/mm3 RBC (4.1-5.6) M/mm3 Hgb (12.5-18.0) gm/dl Hct (42-50) % MCV (78-100) fl MCH (26-32) pg MCHC (32-36) g/dl RDW (11.5-14.0) % Plt Count (150-450) K/mm3 MPV (7.5-11.0) fl Segmented Neutrophils (36.-66.) % Lymphocytes (Manual) (24-44) % Platelet Estimate (NORMAL) RBC Morphology Sodium (137-145) mmol/L Potassium (3.5-5.1) mmol/L Chloride (98-107) mmol/L Carbon Dioxide (22-30) mmol/L Anion Gap (5-15) MEQ/L BUN (9-20) mg/dL Creatinine (0.66-1.25) mg/dL Estimated GFR ML/MIN Glucose (74-106) mg/dL POC Glucometer 158 H (74 to 106) mg/dL Calcium (8.4-10.2) mg/dL Total Bilirubin (0.2-1.3) mg/dL AST (17-59) U/L ALT (0-50) U/L Alkaline Phosphatase (38-126) U/L Troponin I < 0.012 < 0.012 (0.000-0.034) ng/mL NT-Pro-B Natriuret Pep (0-1800) pg/mL Serum Total Protein (6.3-8.2) g/dL Albumin (3.5-5.0) g/dL Theophylline (10-20) ug/mL 11/17/21 11/18/21 11/18/21 Range/Units 22:35 01:27 04:30 WBC (4.0-10.5) K/mm3 RBC (4.1-5.6) M/mm3 Hgb (12.5-18.0) gm/dl Hct (42-50) % MCV (78-100) fl MCH (26-32) pg MCHC (32-36) g/dl RDW (11.5-14.0) % Plt Count (150-450) K/mm3 MPV (7.5-11.0) fl Segmented Neutrophils (36.-66.) % Lymphocytes (Manual) (24-44) % Platelet Estimate (NORMAL) RBC Morphology Sodium (137-145) mmol/L Potassium (3.5-5.1) mmol/L Chloride (98-107) mmol/L Carbon Dioxide (22-30) mmol/L Anion Gap (5-15) MEQ/L BUN (9-20) mg/dL Creatinine (0.66-1.25) mg/dL Estimated GFR ML/MIN Glucose (74-106) mg/dL POC Glucometer (74 to 106) mg/dL Calcium (8.4-10.2) mg/dL Total Bilirubin (0.2-1.3) mg/dL AST (17-59) U/L ALT (0-50) U/L Alkaline Phosphatase (38-126) U/L Troponin I < 0.012 < 0.012 (0.000-0.034) ng/mL NT-Pro-B Natriuret Pep (0-1800) pg/mL Serum Total Protein (6.3-8.2) g/dL Albumin (3.5-5.0) g/dL Theophylline 4.1 L (10-20) ug/mL 11/18/21 11/18/21 11/18/21 Range/Units 04:30 04:30 04:30 WBC 11.2 H (4.0-10.5) K/mm3 RBC 5.12 (4.1-5.6) M/mm3 Hgb 14.1 (12.5-18.0) gm/dl Hct 43.4 (42-50) % MCV 84.8 (78-100) fl MCH 27.5 (26-32) pg MCHC 32.5 (32-36) g/dl RDW 16.0 H (11.5-14.0) % Plt Count 302 (150-450) K/mm3 MPV 9.2 (7.5-11.0) fl Segmented Neutrophils 93 H (36.-66.) % Lymphocytes (Manual) 7 L (24-44) % Platelet Estimate NORMAL (NORMAL) RBC Morphology NORMAL Sodium 134 L (137-145) mmol/L Potassium 4.3 (3.5-5.1) mmol/L Chloride 96 L (98-107) mmol/L Carbon Dioxide 34 H (22-30) mmol/L Anion Gap 8.5 (5-15) MEQ/L BUN 20 (9-20) mg/dL Creatinine 0.56 L (0.66-1.25) mg/dL Estimated GFR > 60.0 ML/MIN Glucose 138 H (74-106) mg/dL POC Glucometer (74 to 106) mg/dL Calcium 8.6 (8.4-10.2) mg/dL Total Bilirubin 1.10 (0.2-1.3) mg/dL AST 26 (17-59) U/L ALT 40 (0-50) U/L Alkaline Phosphatase 37 L (38-126) U/L Troponin I (0.000-0.034) ng/mL NT-Pro-B Natriuret Pep 313 (0-1800) pg/mL Serum Total Protein 5.6 L (6.3-8.2) g/dL Albumin 3.2 L (3.5-5.0) g/dL Theophylline (10-20) ug/mL 11/18/21 11/18/21 11/18/21 Range/Units 07:19 11:15 16:12 WBC (4.0-10.5) K/mm3 RBC (4.1-5.6) M/mm3 Hgb (12.5-18.0) gm/dl Hct (42-50) % MCV (78-100) fl MCH (26-32) pg MCHC (32-36) g/dl RDW (11.5-14.0) % Plt Count (150-450) K/mm3 MPV (7.5-11.0) fl Segmented Neutrophils (36.-66.) % Lymphocytes (Manual) (24-44) % Platelet Estimate (NORMAL) RBC Morphology Sodium (137-145) mmol/L Potassium (3.5-5.1) mmol/L Chloride (98-107) mmol/L Carbon Dioxide (22-30) mmol/L Anion Gap (5-15) MEQ/L BUN (9-20) mg/dL Creatinine (0.66-1.25) mg/dL Estimated GFR ML/MIN Glucose (74-106) mg/dL POC Glucometer 144 H 180 H 136 H (74 to 106) mg/dL Calcium (8.4-10.2) mg/dL Total Bilirubin (0.2-1.3) mg/dL AST (17-59) U/L ALT (0-50) U/L Alkaline Phosphatase (38-126) U/L Troponin I (0.000-0.034) ng/mL NT-Pro-B Natriuret Pep (0-1800) pg/mL Serum Total Protein (6.3-8.2) g/dL Albumin (3.5-5.0) g/dL Theophylline (10-20) ug/mL Accuchecks Date 11/18/21 Date 11/18/21 Date 11/18/21 Date 11/17/21 Time 16:30 Time 11:30 Time 07:33 Time 22:00 - Radiology Impressions Radiology Exams & Impressions: Radiology Procedures Category Date Time Status CHEST 1 VIEW (PORTABLE) Stat Exams 11/17/21 16:33 Completed - Other Procedures and Tests Respiratory Therapy 11/17/21 19:50 Oxygen Nasal Cannula 5 lpm 11/17/21 21:53 BiPap/CPAP ROUTINE Assessment/Plan (1) COPD exacerbation Current Visit: Yes Status: Acute Assessment & Plan: recent discharge for same but was not at baseline and symptoms worsened,readmitted ,restart IV solumedrol . Resp tech to follow,BIPAP when needed. Theophyline dose increased from 300bid to 400 bid. 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
[2021-11-18] MEDS ORDERED: PROVENTIL 2.5 MG/3 ML NEB IH PRN (21:00)
[2021-11-18] MEDS: Xalatan OP SCH (21:39)
[2021-11-18] MEDS: ZOCOR 20MG PO SCH (21:39)
[2021-11-18] MEDS: LASIX 20 MG PO SCH (21:40)
[2021-11-18] MEDS: HUMALOG SQ PRN (21:41)
[2021-11-18] MEDS: Artificial Tears 15 ML OP SCH (21:43)
[2021-11-19] MEDS: solu-MEDROL 80 MG, Sterile H2O 10 ml 2 ML IV SCH ×6 (00:22→13:59)
[2021-11-19] MEDS: DUONEB 0.5-3 MG/3 ml Neb IH SCH ×6 (03:29→23:11)
[2021-11-19] MEDS: Advair Hfa 115/21 Common canister IH SCH ×2 (07:30→19:20)
--- NOTE | 2021-11-19 07:56 | XRAY ---
Indication: Abdomen distention. Comparison: None 2 view abdomen demonstrates nonspecific nonobstructive bowel gas pattern with mild diffuse scattered colonic fecal debris. Solid organs unremarkable. Scattered vascular calcifications. Osseous structures intact with osteopenia and lower lumbar degenerative spondylosis. Lung bases demonstrates left base calcified granuloma. Impression: Mild fecal stasis. Comment: Preliminary interpretation made by [facility]. No critical discrepancy.
[2021-11-19] MEDS ORDERED: Nitrostat 0.4 MG Tablet SL PRN (07:58)
[2021-11-19] MEDS ORDERED: NON-FORMULARY ITEM (Albuterol Sulfate [Proair Digihaler] 90 MCG Aer.Pw.Bas) IH PRN (07:58)
[2021-11-19] MEDS ORDERED: VENTOLIN COMMON CANISTER IH PRN (08:05)
[2021-11-19] MEDS: Protonix 40MG Tablet PO SCH ×2 (08:42→16:37)
[2021-11-19] MEDS: NORVASC 5 MG PO SCH (09:46)
[2021-11-19] MEDS: Aldactone 25 MG PO SCH (09:47)
[2021-11-19] MEDS: ECOTRIN 81 MG PO SCH (09:47)
[2021-11-19] MEDS: XANAX 1 MG PO SCH ×2 (09:47→21:48)
[2021-11-19] MEDS: Lopressor 25MG Tab PO SCH ×2 (09:48→21:47)
[2021-11-19] MEDS: LASIX 20 MG PO SCH ×2 (09:48→17:18)
[2021-11-19] MEDS: Imdur 60MG PO SCH (09:48)
[2021-11-19] MEDS: Mirapex 0.5 MG Tablet PO SCH (09:48)
[2021-11-19] MEDS: ENTRESTO 49 MG-51 MG TABLET PO SCH ×2 (09:48→21:47)
[2021-11-19] MEDS: THEOPHYLLINE ER 24HR PO SCH ×2 (09:49→21:48)
[2021-11-19] MEDS: Artificial Tears 15 ML OP SCH ×4 (09:49→21:56)
[2021-11-19] MEDS ORDERED: NON-FORMULARY ITEM (Aspirin [Aspirin] 81 MG Tablet) PO SCH (10:00)
[2021-11-19] MEDS ORDERED: NON-FORMULARY ITEM (Amlodipine Besylate [Amlodipine Besylate] 2.5 MG Tablet) PO SCH (10:00)
[2021-11-19] MEDS ORDERED: PRAMIPEXOLE DI HCL 0.25 MG PO SCH (10:00)
[2021-11-19] MEDS: Carafate 1 GM PO SCH ×3 (11:41→21:47)
--- NOTE | 2021-11-19 11:49 | PCM.NOTE ---
Date and Time: 11/19/21 1144 Subjective Assessment: Slight improvement ,patient states he is about 60% of baseline,still very sob when up to the bathroom,just eating light/fruit only but appetite is improving. Soft BM today.Denies chest pain. Objective Exam General Appearance: mild distress (conversational dyspnea,mild) Neurologic Exam: alert, oriented x 3, cooperative Skin Exam: normal color, warm, dry Neck Exam: normal inspection Respiratory Exam: diminished breath sounds (but slight improvement of aeration in general), wheezing (left basr) OBJECTIVE DATA Vital Signs: Vital Signs - 24 hr Temp Pulse Resp BP Pulse Ox 11/19/21 07:42 97.8 F 87 24 138/85 96 11/19/21 07:25 80 24 91 L 11/19/21 04:25 98.2 F 83 24 116/64 92 L 11/19/21 03:31 89 20 97 11/18/21 23:36 97.5 F 92 H 22 114/74 94 L 11/18/21 23:20 90 22 94 L 11/18/21 19:25 99 H 22 95 11/18/21 19:23 97.7 F 100 H 26 H 126/74 90 L 11/18/21 16:00 97.5 F 80 28 H 129/79 90 L 11/18/21 14:14 88 24 94 L 11/18/21 12:00 97.5 F 87 26 H 123/77 98 Pain Assessment - Last Documented Pain Intensity 0 Intake and Output: Intake & Output 11/16/21 11/17/21 11/18/21 11/19/21 11:59 11:59 11:59 11:59 Intake Total 660 1440 Output Total 900 1175 Balance -240 265 Weight 84 kg 84.2 kg Lab Results: Lab Results-Last 24 Hours 11/18/21 11/18/21 11/19/21 Range/Units 16:12 20:50 07:07 POC Glucometer 136 H 226 H 148 H (74 to 106) mg/dL 11/19/21 Range/Units 11:19 POC Glucometer 131 H (74 to 106) mg/dL Radiology Exams: Radiology Procedures Category Date Time Status ABDOMEN 2 VIEW Routine Exams 11/18/21 22:58 Completed CHEST 1 VIEW (PORTABLE) Stat Exams 11/17/21 16:33 Completed Assessment/Plan (1) COPD exacerbation Current Visit: Yes Status: Acute Assessment & Plan: improving ,will gradually reduce IV steroid Code(s): J44.1 - CHRONIC OBSTRUCTIVE PULMONARY DISEASE W (ACUTE) EXACERBATION (2) CHF (congestive heart failure) Current Visit: No Status: Chronic Qualifiers: Heart failure chronicity: chronic Code(s): I50.9 - HEART FAILURE, UNSPECIFIED (3) Constipation Current Visit: Yes Status: Acute Assessment & Plan: improved Code(s): K59.00 - CONSTIPATION, UNSPECIFIED (4) DM2 (diabetes mellitus, type 2) Current Visit: No Status: Chronic 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
[2021-11-19] MEDS ORDERED: Depo-Medrol 80 MG/ML IM SCH (12:00)
[2021-11-19] MEDS: solu-MEDROL 60 MG, Sterile H2O 10 ml 2 ML IV SCH ×4 (13:55→21:49)
[2021-11-19] MEDS ORDERED: NON-FORMULARY ITEM (Omeprazole 20 Mg [Prilosec 20 Mg] 20 MG Capsule.Dr) PO SCH (16:30)
[2021-11-19] MEDS: ZOCOR 20MG PO SCH (21:49)
[2021-11-19] MEDS: Xalatan OP SCH (21:50)
[2021-11-19] MEDS: HUMALOG SQ PRN (21:50)
[2021-11-19] MEDS ORDERED: CARBOXYMETHYLCELLULOSE SODIUM OP SCH (22:00)
[2021-11-20] MEDS: DUONEB 0.5-3 MG/3 ml Neb IH SCH ×3 (03:09→11:10)
[2021-11-20] MEDS: solu-MEDROL 60 MG, Sterile H2O 10 ml 2 ML IV SCH ×4 (05:41→13:51)
[2021-11-20] MEDS: Carafate 1 GM PO SCH ×2 (07:54→12:31)
[2021-11-20] MEDS: Protonix 40MG Tablet PO SCH (07:54)
[2021-11-20] MEDS: Advair Hfa 115/21 Common canister IH SCH (08:02)
[2021-11-20] MEDS: XANAX 1 MG PO SCH (10:28)
[2021-11-20] MEDS: ECOTRIN 81 MG PO SCH (10:28)
[2021-11-20] MEDS: Mirapex 0.5 MG Tablet PO SCH (10:28)
[2021-11-20] MEDS: ENTRESTO 49 MG-51 MG TABLET PO SCH (10:28)
[2021-11-20] MEDS: Aldactone 25 MG PO SCH (10:29)
[2021-11-20] MEDS: Artificial Tears 15 ML OP SCH ×2 (10:29→12:31)
[2021-11-20] MEDS: Imdur 60MG PO SCH (10:29)
[2021-11-20] MEDS: LASIX 20 MG PO SCH (10:29)
[2021-11-20] MEDS: Lopressor 25MG Tab PO SCH (10:29)
[2021-11-20] MEDS: NORVASC 5 MG PO SCH (10:29)
[2021-11-20] MEDS: THEOPHYLLINE ER 24HR PO SCH (10:30)
[2021-11-20 12:32] VITALS: O2SAT 92
--- NOTE | 2021-11-20 15:15 | PCM.DCORD ---
- Discharge Disposition: Home, Self-Care Condition: Stable Prescriptions: New Theophylline Anhydrous [Theophylline ER 24Hr] 400 mg PO BID #60 Prednisone 20 mg [Deltasone 20 mg] 20 mg PO BID #20 tablet Prednisone 20 mg [Deltasone 20 mg] 20 mg PO BID #30 tablet Continue Omeprazole 20 MG [Prilosec 20 mg] 20 mg PO BIDAC Albuterol 2.5 mg/3 ml Neb [Proventil 2.5 mg/3 ml Neb] 1 neb IH Q6H PRN PRN Reason: sob Aspirin 81 mg PO DAILY Nitroglycerin 0.4 mg Tablet [Nitrostat 0.4 MG Tablet] 0.4 mg SL Q5MIN PRN MR X 3 PRN PRN Reason: Chest Pain ALPRAZolam 1 MG [Xanax 1 mg] 1 mg PO BID Isosorbide Mononitrate 60 mg [Imdur 60MG] 60 mg PO DAILY Metoprolol Tartrate 25 mg [Lopressor 25MG Tab] 25 mg PO BID Rosuvastatin Calcium 20 mg PO HS Spironolactone 25 mg [Aldactone 25 MG] 12.5 mg PO DAILY Budesonide/Glycopyr/Formoterol [Breztri Aerosphere Inhaler] 2 puffs IH BID Albuterol Sulfate [Proair Digihaler] 2 puffs IH Q6H PRN PRN Reason: sob Pramipexole Di-HCl [Mirapex] 0.25 mg PO DAILY Sacubitril/Valsartan [Entresto 97 mg-103 mg Tablet] 1 each PO BID Furosemide 20 mg [Lasix 20 mg] 20 mg PO DAILY Amlodipine Besylate 2.5 mg PO DAILY Propylene Glycol/Peg 400 [Lubricating Eye Drop] 15 ml OP QID Latanoprost [Xalatan] 1 ml OP HS Carboxymethylcellulose Sodium [Refresh Liquigel] 1 ml OP HS Sucralfate 1 gm [Carafate 1 GM] 1 g PO ACHS #30 tablet Discontinued Theophylline Anhydrous 300 mg PO BID Prednisone 5 mg [Deltasone 5 mg] 5 mg PO DAILY Amox Tr/Potass Clav. 875 mg [Augmentin 875-125 Tablet] 875 mg PO BID 10 Days #20 tablet Azithromycin [Azithromycin 250 mg Pack] 250 mg PO UD #6 tablet Prednisone 20 mg [Deltasone 20 mg] 80 mg PO DAILY 5 Days #20 tablet Follow up with: DAV SEALS DO [Primary Care Provider] - ANGÉLICA STEIN [Family Provider] -
--- NOTE | 2021-11-20 15:56 | PCM.DS ---
Discharge Summary Date of Admission: 11/17/21 19:44 Date of Discharge: 11/20/21 Admitting Physician: DAV SEALS DO Primary Care Provider: DAV SEALS DO Allergies All[facility]ies [facility] Allergy (Severe, Verified 11/10/21 21:52) Rash Hospital Summary - Hospital Course Hospital Course: Patient was readmitted for COPD exacerbation just 2 days after discharge. States it was very hot in the house and he flared up wheezing/sob and could not catch his breath so he came to ER where IV steroids were restarted.Theophylin e dose was increased to 400mg bid from 300mg bid due to low blood level. IV Steroids were tapered and BiPap used as needed until back to near baseline (4-6L O2) patient has nebulizer and BIPAP at home and good support. He will follow with Pulmonolgist DR Moreno and myself 1-2 WEEKS, sooner if needed. - Vitals & Intake/Output Vital Signs: Vital Signs Temperature 97.7 F 11/20/21 12:00 Pulse Rate 104 H 11/20/21 12:00 Respiratory Rate 16 11/20/21 12:00 Blood Pressure 114/73 11/20/21 12:00 O2 Sat by Pulse Oximetry 92 L 11/20/21 12:00 Intake & Output: Intake & Output 11/18/21 11/19/21 11/20/21 11/21/21 11:59 11:59 11:59 11:59 Intake Total 660 1440 1640 120 Output Total 900 1175 2325 Balance -240 265 -685 120 Weight 84 kg 84.2 kg 85.7 kg - Lab Result Diagrams: 11/18/21 04:30 11/18/21 04:30 Lab Results-Last 24 Hrs: Lab Results-Last 24 Hours 11/19/21 11/19/21 11/20/21 Range/Units 16:03 21:05 07:33 POC Glucometer 144 H 256 H 112 H (74 to 106) mg/dL Theophylline (10-20) ug/mL 11/20/21 11/20/21 Range/Units 09:40 12:14 POC Glucometer 160 H (74 to 106) mg/dL Theophylline 9.9 L (10-20) ug/mL Micro Results-Entire Visit: Microbiology 11/17/21 14:43 Blood Culture - Preliminary Blood NO GROWTH TO DATE 11/17/21 14:38 Blood Culture - Preliminary Blood NO GROWTH TO DATE Accuchecks Date 11/19/21 Time 16:03 - Radiology Exams Ordered Rad Exams-Entire Visit: Radiology Procedures Category Date Time Status ABDOMEN 2 VIEW Routine Exams 11/18/21 22:58 Completed - Procedures and Test Procedures and Tests throughout Hospitalization: Therapy Orders & Screens 11/17/21 16:30 Respiratory Therapy Assessment DAILY Comment: 11/17/21 19:50 Oxygen Nasal Cannula 5 lpm Comment: 11/17/21 20:42 RT Screen per Nursing Assess ONCE Comment: Protocol Order Physician Instructions: Greater than 3 points order RT Admission Screen Reason For Exam: Triggered on Admission Diagnosis: COPD exacerbation Diagnosis: COPD exacerbation Pneumonia: No Home O2: Yes Asthma: No CHF: Yes Home CPAP/BIPAP: No Home Nebs/MDI: Yes Total Points: 13 11/17/21 21:53 BiPap/CPAP ROUTINE Comment: Diagnosis: COPD exacerbation Respiratory MDI BID Comment: Diagnosis: COPD exacerbation Discharge Exam General Appearance: no apparent distress Neurologic Exam: alert, oriented x 3, cooperative, normal mood/affect Neck Exam: normal inspection Respiratory Exam: diminished breath sounds (aeration has improved in all lung vergara) Cardiovascular Exam: regular rate/rhythm Gastrointestinal/Abdomen Exam: soft (nontender) Back Exam: normal inspection Extremity Exam: normal inspection Final Diagnosis/Problem List - Final Discharge Diagnosis/Problem (1) COPD exacerbation Current Visit: Yes Status: Acute Code(s): J44.1 - CHRONIC OBSTRUCTIVE PULMONARY DISEASE W (ACUTE) EXACERBATION (2) CHF (congestive heart failure) Current Visit: No Status: Chronic Code(s): I50.9 - HEART FAILURE, UNSPECIF IED (3) Constipation Current Visit: Yes Status: Ruled-out Code(s): K59.00 - CONSTIPATION, UNSPECIFIED (4) DM2 (diabetes mellitus, type 2) Current Visit: No Status: Chronic (5) Hiatal hernia with GERD and esophagitis Current Visit: Yes Status: Chronic Assessment & Plan: will stay on Carafate while on increased steroid dose Code(s): K44.9 - DIAPHRAGMATIC HERNIA WITHOUT OBSTRUCTION OR GANGRENE; K21.00 - GASTRO-ESOPHAGEAL REFLUX DIS WITH ESOPHAGITIS, WITHOUT BLEED - Discharge Disposition: Home, Self-Care Condition: Stable Prescriptions: New Theophylline Anhydrous [Theophylline ER 24Hr] 400 mg PO BID #60 Prednisone 20 mg [Deltasone 20 mg] 20 mg PO BID #20 tablet Prednisone 20 mg [Deltasone 20 mg] 20 mg PO BID #30 tablet Continue Omeprazole 20 MG [Prilosec 20 mg] 20 mg PO BIDAC Albuterol 2.5 mg/3 ml Neb [Proventil 2.5 mg/3 ml Neb] 1 neb IH Q6H PRN PRN Reason: sob Aspirin 81 mg PO DAILY Nitroglycerin 0.4 mg Tablet [Nitrostat 0.4 MG Tablet] 0.4 mg SL Q5MIN PRN MR X 3 PRN PRN Reason: Chest Pain ALPRAZolam 1 MG [Xanax 1 mg] 1 mg PO BID Isosorbide Mononitrate 60 mg [Imdur 60MG] 60 mg PO DAILY Metoprolol Tartrate 25 mg [Lopressor 25MG Tab] 25 mg PO BID Rosuvastatin Calcium 20 mg PO HS Spironolactone 25 mg [Aldactone 25 MG] 12.5 mg PO DAILY Budesonide/Glycopyr/Formoterol [Breztri Aerosphere Inhaler] 2 puffs IH BID Albuterol Sulfate [Proair Digihaler] 2 puffs IH Q6H PRN PRN Reason: sob Pramipexole Di-HCl [Mirapex] 0.25 mg PO DAILY Sacubitril/Valsartan [Entresto 97 mg-103 mg Tablet] 1 each PO BID Furosemide 20 mg [Lasix 20 mg] 20 mg PO DAILY Amlodipine Besylate 2.5 mg PO DAILY Propylene Glycol/Peg 400 [Lubricating Eye Drop] 15 ml OP QID Latanoprost [Xalatan] 1 ml OP HS Carboxymethylcellulose Sodium [Refresh Liquigel] 1 ml OP HS Sucralfate 1 gm [Carafate 1 GM] 1 g PO ACHS #30 tablet Discontinued Theophylline Anhydrous 300 mg PO BID Prednisone 5 mg [Deltasone 5 mg] 5 mg PO DAILY Amox Tr/Potass Clav. 875 mg [Augmentin 875-125 Tablet] 875 mg PO BID 10 Days #20 tablet Azithromycin [Azithromycin 250 mg Pack] 250 mg PO UD #6 tablet Prednisone 20 mg [Deltasone 20 mg] 80 mg PO DAILY 5 Days #20 tablet Instructions: Exacerbation of COPD (DC) Additional Instructions: Continue to wear oxygen at home 4-6L per N/C continuously. Referral for [facility] was sent prior to discharge - They will be contacting you. [phone] Follow up with: ANGÉLICA MORENO [Family Provider] - Call for Appointment DAV SEALS DO [Primary Care Provider] - Call for Appointment (Continue with your pre-existing appointment scheduled for 11/25/21) Forms: Discharge Instructions
[2021-11-20 17:04] VITALS: BP 117/69; PULSE 105
== END 2021-11-20 16:32 | disposition home health service (06) ==
LOC: ED 16:16 → MED SURG 19:44
PROVIDERS: ADMIT Family Medicine; ATTEND Family Medicine
DX: J44.1 Chronic obstructive pulmonary disease with (acute) exacerbation (principal); I11.0 Hypertensive heart disease with heart failure; I50.9 Heart failure, unspecified; K59.00 Constipation, unspecified; E11.9 Type 2 diabetes mellitus without complications; K44.9 Diaphragmatic hernia without obstruction or gangrene; K21.00 Gastro-esophageal reflux disease with esophagitis, without bleeding; Z79.899 Other long term (current) drug therapy; Z99.81 Dependence on supplemental oxygen
CPT/HCPCS: 0241U; 36000; 36415; 71045; 74021; 80053; 80198; 81015; 82947; 83605; 83735; 83880; 84484; 85025; 87040; 93005; 93041; 93268; 94002; 94003; 94640; 94762; 99285; G0378; 87070; J1817; J2930; A9270-GY

== ENCOUNTER 2021-12-12 10:50 | Emergency (ER) | payer MEDICARE ==
[2021-12-12] MEDS ORDERED: DUONEB 0.5-3 MG/3 ml Neb IH ONE ×2 (11:03→11:08)
--- NOTE | 2021-12-12 11:14 | ERPHSYRPT ---
- History of Present Illness Source: patient, family Exam Limitations: no limitations Patient Subjective Stated Complaint: Pt states "I have been having a hard time breathing and I am still coughing." Triage Nursing Assessment: Pt presented alert and oriented X 3, skin pwd. PT ambulates with a shakey gait, speak in three to four word sentences. tp tachypneic, tachycardic. Physician History: 76 yo wm who is 4L O2 NC dependent presents w increasing dyspnea x 3 days. Pt has a nonproductive cough/coryza/mild fever but denies CP/melena/hematochezia. He is not vaccinated against CV19. Pt quit smoking 15yrs ago. Family members w URI symptoms. Timing/Duration: other (3days) Activities at Onset: rest Severity of Dyspnea-Max: severe Severity of Dyspnea-Current: severe Possible Cause: frequent episodes Modifying Factors: Improves With: activity Associated Symptoms: cough, fever, No chest pain/discomfort, No edema, No insomnia, No loss of appetite, No lightheadedness, No wheezing, No weakness, No ankle swelling, No chills, No hemoptysis, No calf pain, No dizziness, No heart racing, No lightheadedness, No leg swelling, No muscle spasms hands, No painful breathing, No productive cough, No sweating, No tightness Allergies/Adverse Reactions: nicotine [From [employer]] Allergy (Severe, Verified 11/10/21 21:52) Rash Home Medications: Albuterol 2.5 mg/3 ml Neb [Proventil 2.5 mg/3 ml Neb] 1 neb IH Q6H PRN 02/04/14 [History] Aspirin 81 mg PO DAILY 02/04/14 [History] Omeprazole 20 MG [Prilosec 20 mg] 20 mg PO BIDAC 02/04/14 [History] Nitroglycerin 0.4 mg Tablet [Nitrostat 0.4 MG Tablet] 0.4 mg SL Q5MIN PRN MR X 3 PRN 08/01/16 [History] ALPRAZolam 1 MG [Xanax 1 mg] 1 mg PO BID 10/14/18 [History] Isosorbide Mononitrate 60 mg [Imdur 60MG] 60 mg PO DAILY 06/01/20 [History] Metoprolol Tartrate 25 mg [Lopressor 25MG Tab] 25 mg PO BID 06/01/20 [History] Rosuvastatin Calcium 20 mg PO HS 06/01/20 [History] Spironolactone 25 mg [Aldactone 25 MG] 12.5 mg PO DAILY 01/25/21 [History] Albuterol Sulfate [Proair Digihaler] 2 puffs IH Q6H PRN 03/24/21 [History] Budesonide/Glycopyr/Formoterol [Breztri Aerosphere Inhaler] 2 puffs IH BID 03/24/21 [History] Amlodipine Besylate 2.5 mg PO DAILY 06/12/21 [History] Furosemide 20 mg [Lasix 20 mg] 20 mg PO DAILY 06/12/21 [History] Pramipexole Di-HCl [Mirapex] 0.25 mg PO DAILY 06/12/21 [History] Sacubitril/Valsartan [Entresto 97 mg-103 mg Tablet] 1 each PO BID 06/12/21 [History] Carboxymethylcellulose Sodium [Refresh Liquigel] 1 ml OP HS 09/25/21 [History] Latanoprost [Xalatan] 1 ml OP HS 09/25/21 [History] Propylene Glycol/Peg 400 [Lubricating Eye Drop] 15 ml OP QID 09/25/21 [History] Hx Tetanus, Diphtheria Vaccination/Date Given: No Hx Influenza Vaccination/Date Given: Yes Hx Pneumococcal Vaccination/Date Given: Yes Immunizations Up to Date: Yes Travel Risk - International Travel Have you traveled outside of the country in past 3 weeks: No - Coronavirus Screening Are you exhibiting any of the following symptoms?: Yes Symptoms: Cough: New Onset, Shortness of Breath Close contact with a COVID-19 positive Pt in past 14-21 Days: No - Vaccine Status Have you recieved a Covid-19 vaccination: No - Review of Systems Constitutional: No Symptoms, Fever, Weakness Eyes: No Symptoms Ears, Nose, & Throat: No Symptoms Respiratory: No Symptoms, Cough, Dyspnea, Dyspnea on Exertion (GUERRA) Cardiac: No Symptoms Abdominal/Gastrointestinal: No Symptoms Genitourinary Symptoms: No Symptoms Musculoskeletal: No Symptoms Skin: No Symptoms Neurological: No Symptoms Psychological: No Symptoms Endocrine: No Symptoms Hematologic/Lymphatic: No Symptoms Immunological/Allergic: No Symptoms - Past Medical History Pertinent Past Medical History: Yes Neurological History: No Pertinent History ENT History: No Pertinent History Cardiac History: Aneurysm, Congestive Heart Failure, Hypertension Respiratory History: COPD, Sleep Apnea, Other Endocrine Medical History: Diabetes Type II Musculoskeletal History: No Pertinent History GI Medical History: No Pertinent History, GERD History: No Pertinent History Psycho-Social History: Anxiety Male Reproductive Disorders: No Pertinent History Other Medical History: 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 Pt also states he had an increase of SOB and chest pain that he has seen Dr. Mallory for and he has been put on nitro. PT wears 4L O2 AT ALL TIMES - Past Surgical History Past Surgical History: Yes Neuro Surgical History: No Pertinent History Cardiac: No Pertinent History Respiratory: Other Gastrointestinal: Hernia Repair Genitourinary: No Pertinent History Musculoskeletal: Orthopedic Surgery Male Surgical History: Vasectomy Other Surgical History: BACK SURGERY, and ear surgery and a left lung biopsy. 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, double hernia repair, - Social History Smoking Status: Former smoker How long have you smoked: 13 Exposure to second hand smoke: No Drug Use: none Patient Lives Alone: No Significant Family History: no pertinent family hx - Nursing Vital Signs Nursing Vital Signs: Initial Vital Signs Temperature 100.0 F 12/12/21 10:52 Pulse Rate 125 H 12/12/21 10:52 Respiratory Rate 36 H 12/12/21 10:52 Blood Pressure 116/80 12/12/21 10:52 O2 Sat by Pulse Oximetry 83 L 12/12/21 10:52 Pain Scale Pain Intensity 4 Hypoxic/Tachy - Physical Exam General Appearance: mild distress Eye Exam: PERRL/EOMI, eyes nml inspection Ears, Nose, Throat Exam: hearing grossly normal, normal ENT inspection, normal pharynx, No abnormal TM (R), No abnormal TM (L) Neck Exam: normal inspection, non-tender, supple, full range of motion, No Brudzinski, No Kernig's, No meningismus, No carotid bruit Respiratory Exam: airway intact, prolonged expirations, crackles/rales (Rales Bases B/Decreased at bases B) Cardiovascular/Chest Exam: tachycardia, No murmur Abdominal/Gastrointestinal Exam: soft, normal bowel sounds, No tenderness Extremity Exam: non-tender, normal range of motion, normal inspection, normal ca pillary refill Neurologic Exam: alert, oriented x 3, cooperative, 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 tested, normal mood/affect, sensation nml Skin Exam: pale Lymphatic Exam: No adenopathy SpO2 Interpretation: hypoxic (Sats 83% before 6L O2 oxymask) SpO2: 95 O2 Delivery: Oxymask - Course Nursing assessment & vital signs reviewed: Yes EKG Interpreted by Me: RATE (Sinus tach/R119/RBBB/ST-T wave changes-probably related to IVCD) - Radiology Exams Chest X-ray Interpretation: Discussed w/ radiologist (CXR COPD/Scarring/Nothing acute) Ordered Tests: Active Orders 24 hr Category Date Time Status EKG-ER Only STAT Care 12/12/21 11:01 Completed IV Insertion STAT Care 12/12/21 11:01 Completed CBC W DIFF Stat Lab 12/12/21 11:00 Completed CMP Stat Lab 12/12/21 11:00 Completed Lactic Acid Stat Lab 12/12/21 11:01 Completed Manual Differential NC Stat Lab 12/12/21 11:00 Completed NT PRO BNP Stat Lab 12/12/21 11:00 Completed PROTIME WITH INR Stat Lab 12/12/21 11:00 Completed PTT Stat Lab 12/12/21 11:00 Completed TROPONIN Q3H Lab 12/12/21 11:00 Completed TROPONIN Q3H Lab 12/12/21 14:30 Completed Respiratory Therapy Assessment DAILY RT 12/12/21 11:15 Completed Medication Summary Discontinued Medications Generic Name Dose Route Start Last Admin Trade Name Freq PRN Reason Stop Dose Admin Albuterol/Ipratropium 3 ml 12/12/21 11:03 12/12/21 11:11 Ipratropium/Albuterol Sulfate 3 Ml Ampul.Neb IH 12/12/21 11:04 3 ml STAT ONE Administration Albuterol/Ipratropium Confirm 12/12/21 11:08 Ipratropium/Albuterol Sulfate 3 Ml Ampul.Neb Administered 12/12/21 11:09 Dose 3 ml IH .STK-MED ONE Dexamethasone Sodium Phosphate 10 mg 12/12/21 12:21 12/12/21 12:26 Dexamethasone Sod Phosphate 10 Mg/Ml IV 12/12/21 12:22 10 mg STAT ONE Administration Dexamethasone Sodium Phosphate Confirm 12/12/21 12:26 Dexamethasone Sod Phosphate 10 Mg/Ml Administered 12/12/21 12:27 Dose 10 mg .ROUTE .STK-MED ONE Remdesivir 200 mg/ Sodium 250 mls @ 125 mls/hr 12/12/21 12:56 12/12/21 13:51 Chloride IV 12/12/21 14:55 125 mls/hr ONCE ONE Administration Lab/Rad Data: Laboratory Result Diagrams 12/12/21 11:00 12/12/21 11:00 Laboratory Results 12/12/21 12/12/21 12/12/21 Range/Units Unknown 14:30 11:01 WBC (4.0-10.5) K/mm3 RBC (4.1-5.6) M/mm3 Hgb (12.5-18.0) gm/dl Hct (42-50) % MCV (78-100) fl MCH (26-32) pg MCHC (32-36) g/dl RDW (11.5-14.0) % Plt Count (150-450) K/mm3 MPV (7.5-11.0) fl Segmented Neutrophils (36.-66.) % Band Neutrophils (0.0-2.0) % Lymphocytes (Manual) (24-44) % Monocytes (Manual) (0.0-12.0) % Platelet Estimate (NORMAL) RBC Morphology Polychromasia PT (9.4-12.5) SECONDS INR (0.8-3.0) APTT (25.1-36.5) SECONDS Sodium (137-145) mmol/L Potassium (3.5-5.1) mmol/L Chloride (98-107) mmol/L Carbon Dioxide (22-30) mmol/L Anion Gap (5-15) MEQ/L BUN (9-20) mg/dL Creatinine (0.66-1.25) mg/dL Estimated GFR ML/MIN Glucose (74-106) mg/dL Lactic Acid 1.4 (0.4-2.0) Calcium (8.4-10.2) mg/dL Total Bilirubin (0.2-1.3) mg/dL AST (17-59) U/L ALT (0-50) U/L Alkaline Phosphatase (38-126) U/L Troponin I < 0.012 (0.000-0.034) ng/mL NT-Pro-B Natriuret Pep (0-1800) pg/mL Serum Total Protein (6.3-8.2) g/dL Albumin (3.5-5.0) g/dL Influenza Type A Ag NEGATIVE (NEGATIVE) Influenza Type B Ag NEGATIVE (NEGATIVE) RSV (PCR) NEGATIVE (Negative) SARS-CoV-2 (PCR) POSITIVE A (NEGATIVE) 12/12/21 12/12/21 12/12/21 Range/Units 11:00 11:00 11:00 WBC (4.0-10.5) K/mm3 RBC (4.1-5.6) M/mm3 Hgb (12.5-18.0) gm/dl Hct (42-50) % MCV (78-100) fl MCH (26-32) pg MCHC (32-36) g/dl RDW (11.5-14.0) % Plt Count (150-450) K/mm3 MPV (7.5-11.0) fl Segmented Neutrophils (36.-66.) % Band Neutrophils (0.0-2.0) % Lymphocytes (Manual) (24-44) % Monocytes (Manual) (0.0-12.0) % Platelet Estimate (NORMAL) RBC Morphology Polychromasia PT 11.4 (9.4-12.5) SECONDS INR 1.08 (0.8-3.0) APTT 24.5 L (25.1-36.5) SECONDS Sodium (137-145) mmol/L Potassium (3.5-5.1) mmol/L Chloride (98-107) mmol/L Carbon Dioxide (22-30) mmol/L Anion Gap (5-15) MEQ/L BUN (9-20) mg/dL Creatinine (0.66-1.25) mg/dL Estimated GFR ML/MIN Glucose (74-106) mg/dL Lactic Acid (0.4-2.0) Calcium (8.4-10.2) mg/dL Total Bilirubin (0.2-1.3) mg/dL AST (17-59) U/L ALT (0-50) U/L Alkaline Phosphatase (38-126) U/L Troponin I < 0.012 (0.000-0.034) ng/mL NT-Pro-B Natriuret Pep 462 (0-1800) pg/mL Serum Total Protein (6.3-8.2) g/dL Albumin (3.5-5.0) g/dL Influenza Type A Ag (NEGATIVE) Influenza Type B Ag (NEGATIVE) RSV (PCR) (Negative) SARS-CoV-2 (PCR) (NEGATIVE) 12/12/21 12/12/21 Range/Units 11:00 11:00 WBC 6.2 (4.0-10.5) K/mm3 RBC 4.75 (4.1-5.6) M/mm3 Hgb 13.1 (12.5-18.0) gm/dl Hct 41.0 L (42-50) % MCV 86.3 (78-100) fl MCH 27.6 (26-32) pg MCHC 32.0 (32-36) g/dl RDW 17.1 H (11.5-14.0) % Plt Count 291 (150-450) K/mm3 MPV 9.1 (7.5-11.0) fl Segmented Neutrophils 82 H (36.-66.) % Band Neutrophils 2 (0.0-2.0) % Lymphocytes (Manual) 10 L (24-44) % Monocytes (Manual) 6 (0.0-12.0) % Platelet Estimate NORMAL (NORMAL) RBC Morphology NORMAL Polychromasia 1+ PT (9.4-12.5) SECONDS INR (0.8-3.0) APTT (25.1-36.5) SECONDS Sodium 135 L (137-145) mmol/L Potassium 3.7 (3.5-5.1) mmol/L Chloride 99 (98-107) mmol/L Carbon Dioxide 28 (22-30) mmol/L Anion Gap 11.8 (5-15) MEQ/L BUN 11 (9-20) mg/dL Creatinine 0.55 L (0.66-1.25) mg/dL Estimated GFR > 60.0 ML/MIN Glucose 99 (74-106) mg/dL Lactic Acid (0.4-2.0) Calcium 9.1 (8.4-10.2) mg/dL Total Bilirubin 1.00 (0.2-1.3) mg/dL AST 27 (17-59) U/L ALT 19 (0-50) U/L Alkaline Phosphatase 48 (38-126) U/L Troponin I (0.000-0.034) ng/mL NT-Pro-B Natriuret Pep (0-1800) pg/mL Serum Total Protein 7.1 (6.3-8.2) g/dL Albumin 4.1 (3.5-5.0) g/dL Influenza Type A Ag (NEGATIVE) Influenza Type B Ag (NEGATIVE) RSV (PCR) (Negative) SARS-CoV-2 (PCR) (NEGATIVE) - Progress Progress: improved Progress Note: 12/12/21 12:55 Duoneb x1 Decadron 10mg IV Spoke w Dr. 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 Dunn at [facility] 12/12/21 14:33 12/12/21 18:17 Pt sats increased to mid 90's w 6L O2 Oxymask 12/12/21 18:18 Remdisivir 200mg IV Pt w good sats and in no distress when EMS assumed care of Pt Counseled pt/family regarding: lab results, diagnosis, need for follow-up, rad results - Departure Departure Disposition: Transfer Clinical Impression: COVID-19 Condition: Stable Critical Care Time: Yes Critical Care Time(excluding separately billable procedures): Critical 30-74 mins Referrals: DAV BOWEN DO [Primary Care Provider] - Follow up/PCP as directed
[2021-12-12 11:15] LABS: Hemoglobin 13.1 gm/dl (12.5-18.0); Mean Cell Volume 86.3 fl (78-100); Mean Corpuscular Hemoglobin 27.6 pg (26-32); Mean Platelet Volume 9.1 fl (7.5-11.0); Platelet Count 291 K/mm3 (150-450); Red Blood Count 4.75 M/mm3 (4.1-5.6); Red Cell Distribution Width 17.1 % (11.5-14.0); White Blood Count 6.2 K/mm3 (4.0-10.5)
[2021-12-12 11:37] LABS: INR 1.08 (0.8-3.0); PROTIME 11.4 SECONDS (9.4-12.5); PTT 24.5 SECONDS (25.1-36.5)
[2021-12-12 11:40] LABS: ALBUMIN 4.1 g/dL (3.5-5.0); ALKALINE PHOSPHATASE 48 U/L (38-126); ANION GAP 11.8 MEQ/L (5-15); BLOOD UREA NITROGEN 11 mg/dL (9-20); CHLORIDE 99 mmol/L (98-107); Calcium 9.1 mg/dL (8.4-10.2); Carbon Dioxide 28 mmol/L (22-30); Creatinine 1 0.55 mg/dL (0.66-1.25); EST GLOMERULAR FILTRATION RATE > 60.0 ML/MIN; Glucose 99 mg/dL (74-106); Potassium 3.7 mmol/L (3.5-5.1); SGOT/AST 27 U/L (17-59); SGPT/ALT 19 U/L (0-50); SODIUM 135 mmol/L (137-145); Total Protein 7.1 g/dL (6.3-8.2)
[2021-12-12 12:11] LABS: INFLUENZA A NEGATIVE (NEGATIVE); INFLUENZA B NEGATIVE (NEGATIVE); RESPIRATORY SYNCTIAL VIRUS NEGATIVE (Negative)
[2021-12-12 12:17] LABS: SARS-CoV-2 Xpert Express POSITIVE (NEGATIVE)
[2021-12-12] MEDS ORDERED: DECADRON 10MG INJ. IV ONE (12:21)
[2021-12-12] MEDS ORDERED: DECADRON 10MG INJ. ONE (12:26)
[2021-12-12] MEDS ORDERED: REMDESIVIR 200 MG in Sodium Chloride 0.9% 250 ML 250 ML IV ONE (12:56)
[2021-12-12 14:17] LABS: BAND 2 % (0.0-2.0); Lymphocytes 10 % (24-44); Monocyte 6 % (0.0-12.0); Platelet Estimate NORMAL (NORMAL); Polychromasia 1+; Total Cells Counted 100
[2021-12-12 15:04] VITALS: BP 101/65; PULSE 109
[2021-12-12 18:20] VITALS: O2SAT 95
== END 2021-12-12 15:18 | disposition short-term general hospital (02) ==
LOC: ED 10:50
DX: U07.1 COVID-19 (principal); R06.00 Dyspnea, unspecified; R05.9 Cough, unspecified; R09.81 Nasal congestion; R50.9 Fever, unspecified; I11.0 Hypertensive heart disease with heart failure; I50.9 Heart failure, unspecified; J44.9 Chronic obstructive pulmonary disease, unspecified; E11.9 Type 2 diabetes mellitus without complications; Z99.81 Dependence on supplemental oxygen; Z79.899 Other long term (current) drug therapy
CPT/HCPCS: 0241U; 36000; 36415; 80053; 83605; 83880; 84484; 85025; 85610; 85730; 93005; 94640; 96365; 96374; 99285; 99291; 96375; J0248; J1100; A9270-GY

== ENCOUNTER 2022-05-19 19:26 | Observation (INO) | payer MEDICARE, SELFPAY ==
[2022-05-19] MEDS ORDERED: DUONEB 0.5-3 MG/3 ml Neb IH ONE ×2 (19:32)
--- NOTE | 2022-05-19 19:47 | ERPHSYRPT ---
- History of Present Illness Time Seen by Provider: 05/19/22 19:31 Source: patient, EMS Exam Limitations: no limitations Physician History: 76 years old male with history of congestive heart failure, hypertension, hyperlipidemia, chronic respiratory failure secondary to COPD on 4 L oxygen has been having cough congestion and shortness of breath worsening for the last c ouple of weeks, was evaluated outpatient and finished course of antibiotics and steroid but does not seem helping a whole lot. Patient report for the last 3 to 4 days has progressive worsening shortness of breath with activity and even at resting. Cough productive of yellow-green sputum with associated chest tightness. Patient oxygen saturation was 77% on 4 L oxygen normal on EMS arrival, was placed on nonrebreather and given Solu-Medrol along with DuoNeb and currently around 92%. Subjective feeling of fever and chills as well. Timing/Duration: day(s) (4), constant, gradual onset, worse Activities at Onset: activity Severity of Dyspnea-Max: moderate Severity of Dyspnea-Current: moderate Possible Cause: frequent episodes Modifying Factors: Improves With: albuterol nebulizer, oxygen. Worsens With: coughing, deep breath, exertion Associated Symptoms: cough, chest pain/discomfort, fever, wheezing, chills, heaviness, muscle spasms hands, productive cough, tightness [facility]ies[facility]Adverse [facility]actions: [facility] Allergy (Severe, Verified 05/19/22 19:45) Rash Home Medications: Albuterol 2.5 mg/3 ml Neb [Proventil 2.5 mg/3 ml Neb] 1 neb IH Q6H PRN 02/04/14 [History] Aspirin 81 mg PO HS 02/04/14 [History] Omeprazole 20 MG [Prilosec 20 mg] 20 mg PO BIDAC 02/04/14 [History] Nitroglycerin 0.4 mg Tablet [Nitrostat 0.4 MG Tablet] 0.4 mg SL Q5MIN PRN MR X 3 PRN 08/01/16 [History] ALPRAZolam 1 MG [Xanax 1 mg] 1 mg PO BID 10/14/18 [History] Isosorbide Mononitrate 60 mg [Imdur 60MG] 60 mg PO DAILY 06/01/20 [History] Metoprolol Tartrate 25 mg [Lopressor 25MG Tab] 25 mg PO BID 06/01/20 [History] Rosuvastatin Calcium 20 mg PO HS 06/01/20 [History] Spironolactone 25 mg [Aldactone 25 MG] 12.5 mg PO DAILY 01/25/21 [History] Albuterol Sulfate [Proair Digihaler] 2 puffs IH Q6H PRN 03/24/21 [History] Budesonide/Glycopyr/Formoterol [Breztri Aerosphere Inhaler] 2 puffs IH BID 03/24/21 [History] Amlodipine Besylate 2.5 mg PO DAILY 06/12/21 [History] Furosemide 20 mg [Lasix 20 mg] 20 mg PO DAILY 06/12/21 [History] Pramipexole Di-HCl [Mirapex] 0.25 mg PO HS 06/12/21 [History] Sacubitril/Valsartan [Entresto 97 mg-103 mg Tablet] 2 each PO DAILY 06/12/21 [History] Carboxymethylcellulose Sodium [Refresh Liquigel] 1 ml OP HS 09/25/21 [History] Latanoprost [Xalatan] 1 ml OP HS 09/25/21 [History] Propylene Glycol/Peg 400 [Lubricating Eye Drop] 15 ml OP QID 09/25/21 [History] Prednisone 20 mg [Deltasone 20 mg] 5 mg PO DAILY 05/19/22 [History] Hx Tetanus, Diphtheria Vaccination/Date Given: No Hx Influenza Vaccination/Date Given: Yes Hx Pneumococcal Vaccination/Date Given: Yes Travel Risk - Vaccine Status Have you recieved a Covid-19 vaccination: No - Review of Systems Constitutional: Fever, Chills, Fatigue, Weakness Eyes: No Symptoms Ears, Nose, & Throat: No Symptoms Respiratory: Cough, Dyspnea, Dyspnea on Exertion (GUERRA), Wheezing Cardiac: Chest Pain Abdominal/Gastrointestinal: No Symptoms Genitourinary Symptoms: No Symptoms Musculoskeletal: No Symptoms Skin: No Symptoms Neurological: No Symptoms Psychological: No Symptoms Endocrine: No Symptoms Hematologic/Lymphatic: No Symptoms Immunological/Allergic: No Symptoms - Past Medical History Pertinent Past Medical History: Yes Neurological History: No Pertinent History ENT History: No Pertinent History Cardiac History: Aneurysm, Congestive Heart Failure, Hypertension Respiratory History: COPD, Sleep Apnea, Other Endocrine Medical History: Diabetes Type II Musculoskeletal History: No Pertinent History GI Medical History: No Pertinent History, GERD History: No Pertinent History Psycho-Social History: Anxiety Male Reproductive Disorders: No Pertinent History Other Medical History: 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 Pt also states he had an increase of SOB and chest pain that he has seen Dr. Mallory for and he has been put on nitro. PT wears 4L O2 AT ALL TIMES - Past Surgical History Past Surgical History: Yes Neuro Surgical History: No Pertinent History Cardiac: No Pertinent History Respiratory: Other Gastrointestinal: Hernia Repair Genitourinary: No Pertinent History Musculoskeletal: Orthopedic Surgery Male Surgical History: Vasectomy Other Surgical History: BACK SURGERY, and ear surgery and a left lung biopsy. 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, double hernia repair, - Social History Smoking Status: Former smoker How long have you smoked: 13 Exposure to second hand smoke: No Drug Use: none Patient Lives Alone: No Significant Family History: no pertinent family hx - Nursing Vital Signs Nursing Vital Signs: Initial Vital Signs Temperature 98.7 F 05/19/22 19:27 Pulse Rate 102 H 05/19/22 19:27 Respiratory Rate 30 H 05/19/22 19:27 Blood Pressure 121/86 05/19/22 19:27 O2 Sat by Pulse Oximetry 96 05/19/22 19:27 Pain Scale Pain Intensity 0 - Physical Exam General Appearance: no apparent distress, alert Eye Exam: PERRL/EOMI Ears, Nose, Throat Exam: hearing grossly normal, normal pharynx, pharyngeal erythema Neck Exam: normal inspection, supple, full range of motion Respiratory Exam: respiratory distress, diminished breath sounds, rhonchi, wheezing Cardiovascular/Chest Exam: normal heart sounds, regular rate/rhythm Abdominal/Gastrointestinal Exam: soft, No tenderness Extremity Exam: non-tender, normal range of motion Neurologic Exam: alert, oriented x 3, cooperative Skin Exam: normal color SpO2 Interpretation: hypoxic, O2 applied SpO2: 96 O2 Delivery: Nasal Cannula - Course EKG Interpreted by Me: RATE (103), Sinus Tach, Right [place] Deviation, Right Bundle Branch Block Ordered Tests: Medication Summary Generic Name Dose Route Start Last Admin Trade Name Freq PRN Reason Stop Dose Admin Acetaminophen 650 mg 05/19/22 22:40 Acetaminophen 325 Mg Tablet PO 06/18/22 22:39 Q4H PRN PRN PAIN AND/OR FEVER Albuterol/Ipratropium 3 ml 05/20/22 01:00 05/21/22 07:13 Ipratropium/Albuterol Sulfate 3 Ml Ampul.Neb IH 06/19/22 00:59 3 ml Q6HRT FAHEEM Administration Alprazolam 1 mg 05/20/22 22:00 05/20/22 20:47 Alprazolam 1 Mg Tablet PO 06/19/22 21:59 1 mg BID FAHEEM Administration Amlodipine Besylate 2.5 mg 05/20/22 15:30 05/20/22 15:04 Amlodipine Besylate 5 Mg Tablet PO 06/19/22 15:29 2.5 mg DAILY FAHEEM Administration Aspirin 81 mg 05/20/22 22:00 05/20/22 20:50 Aspirin 81 Mg Tablet.Ec PO 06/19/22 21:59 81 mg HS FAHEEM Administration Methylprednisolone Sodium 0 mg 05/20/22 00:00 05/21/22 05:41 Succinate 60 mg/ Sterile Water IV 06/19/22 00:00 60 mg 2 ml Q6HT FAHEEM Administration Furosemide 20 mg 05/20/22 15:30 05/20/22 15:05 Furosemide 20 Mg Tablet PO 06/19/22 15:29 20 mg DAILY FAHEEM Administration Azithromycin 500 mg in 250 mls @ 250 mls/hr 05/20/22 22:00 05/20/22 20:51 Zithromax 500 Mg/ 250 Ml Nacl Premix IV 06/19/22 21:59 250 mls/hr Q24H22 FAHEEM Administration Ceftriaxone Sodium/Dextrose 1 g in 50 mls @ 100 mls/hr 05/20/22 10:00 05/20/22 21:08 Rocephin 1 Gm-D5w 50 Ml Bag IV 05/23/22 09:59 Not Given Q24H22 FAHEEM Insulin Human Lispro 0 unit 05/19/22 22:40 Insulin Lispro 1 Unit SQ 06/18/22 22:39 UD PRN HYPERGLYCEMIA Isosorbide Mononitrate 60 mg 05/20/22 15:30 05/20/22 15:03 Isosorbide Mononitrate 60 Mg Tab PO 06/19/22 15:29 60 mg DAILY FAHEEM Administration Latanoprost 1 ml 05/20/22 22:00 05/20/22 20:45 Latanoprost 2.5 Ml Bottle OP 06/19/22 21:59 1 ml HS FAHEEM Administration Metoprolol Tartrate 25 mg 05/20/22 15:30 05/20/22 20:47 Metoprolol Tartrate 25 Mg Tab PO 06/19/22 15:29 25 mg BID FAHEEM Administration Miscellaneous Information 1 each 05/20/22 14:45 Medication Intervention 1 Each Each 06/19/22 14:44 .RN TO CHECK FAHEEM Miscellaneous Information 1 each 05/20/22 14:45 Medication Intervention 1 Each Each 06/19/22 14:44 .RN TO CHECK FAHEEM Miscellaneous Information 1 each 05/20/22 15:00 Medication Intervention 1 Each Each 06/19/22 14:59 .RN TO CHECK FAHEEM Morphine Sulfate 2 mg 05/19/22 22:40 Morphine Sulfate 2 Mg/Ml Inj IV 05/24/22 22:39 Q4H PRN PRN PAIN Pantoprazole Sodium 40 mg 05/21/22 10:00 Protonix (Pantoprazole) 40 Mg Tablet PO 06/20/22 09:59 DAILY FAHEEM Pramipexole Dihydrochloride 0.25 mg 05/20/22 22:00 05/20/22 20:47 Pramipexole Di-Hcl 0.5 Mg Tab PO 06/19/22 21:59 0.25 mg HS FAHEEM Administration Sacubitril/Valsartan 2 tablet 05/20/22 15:30 05/20/22 20:50 Sacubitril/Valsartan 1 Tablet Tablet PO 06/19/22 15:29 2 tablet BID FAHEEM Administration Simvastatin 40 mg 05/20/22 22:00 05/20/22 20:49 Simvastatin 20 Mg Tablet PO 06/19/22 21:59 40 mg HS FAHEEM Administration Spironolactone 12.5 mg 05/20/22 15:30 05/20/22 15:05 Spironolactone 25 Mg Tablet PO 06/19/22 15:29 12.5 mg DAILY FAHEEM Administration Theophylline 400 mg 05/20/22 22:00 05/20/22 20:59 Theophylline Anhydrous 400 Mg Tab.Er.24hr Tablet PO 06/19/22 21:59 400 mg BID FAHEEM Administration Discontinued Medications Generic Name Dose Route Start Last Admin Trade Name Simón PRN Reason Stop Dose Admin Albuterol/Ipratropium 3 ml 05/19/22 19:32 05/19/22 19:40 Ipratropium/Albuterol Sulfate 3 Ml Ampul.Neb IH 05/19/22 19:33 3 ml STAT ONE Administration Albuterol/Ipratropium Confirm 05/19/22 19:32 Ipratropium/Albuterol Sulfate 3 Ml Ampul.Neb Administered 05/19/22 19:33 Dose 3 ml IH .STK-MED ONE Alprazolam 1 mg 05/20/22 00:19 05/20/22 01:16 Alprazolam 1 Mg Tablet PO 05/20/22 00:20 1 mg ONCE ONE Administration Aspirin 81 mg 05/20/22 00:19 05/20/22 01:16 Aspirin 81 Mg Tablet.Ec PO 05/20/22 00:20 81 mg ONCE ONE Administration Ceftriaxone Sodium/Dextrose 2 g in 50 mls @ 100 mls/hr 05/19/22 20:08 05/19/22 20:48 Rocephin 2 Gm-D5w 50ml Bag IV 05/19/22 20:37 Infused STAT STA Infusion Azithromycin 500 mg in 250 mls @ 250 mls/hr 05/19/22 20:08 05/19/22 21:45 Zithromax 500 Mg/ 250 Ml Nacl Premix IV 05/19/22 21:07 Infused STAT STA Infusion Ceftriaxone Sodium/Dextrose Confirm 05/19/22 20:12 Rocephin 2 Gm-D5w 50ml Bag Administered 05/19/22 20:13 Dose 2 g in 50 mls @ ud IV .STK-MED ONE Azithromycin Confirm 05/19/22 20:36 Zithromax 500 Mg/ 250 Ml Nacl Premix Administered 05/19/22 20:37 Dose 500 mg in 250 mls @ ud IV .STK-MED ONE Latanoprost 1 ml 05/20/22 00:20 05/20/22 01:22 Latanoprost 2.5 Ml Bottle OP 05/20/22 00:21 Not Given ONCE ONE Methylprednisolone Sodium Succinate Confirm 05/20/22 01:02 Methylprednis Sod Succ 125 Mg/2 Ml Vial Administered 05/20/22 01:03 Dose 125 mg .ROUTE .STK-MED ONE Methylprednisolone Sodium Succinate Confirm 05/20/22 05:24 Methylprednis Sod Succ 125 Mg/2 Ml Vial Administered 05/20/22 05:25 Dose 125 mg .ROUTE .STK-MED ONE Methylprednisolone Sodium Succinate Confirm 05/20/22 17:37 Methylprednis Sod Succ 125 Mg/2 Ml Vial Administered 05/20/22 17:38 Dose 125 mg .ROUTE .STK-MED ONE Metoprolol Tartrate 25 mg 05/20/22 00:21 05/20/22 01:17 Metoprolol Tartrate 25 Mg Tab PO 05/20/22 00:22 25 mg ONCE ONE Administration Non-Formulary Medication 20 mg 05/20/22 16:30 Omeprazole 20 Mg [Prilosec 20 Mg] PO 06/19/22 16:29 BIDAC FAHEEM Pantoprazole Sodium 40 mg 05/20/22 10:00 05/20/22 10:21 Pantoprazole 40 Mg Vial IV 06/19/22 09:59 40 mg Q24H10 FAHEEM Administration Pramipexole Dihydrochloride 0.25 mg 05/20/22 00:21 05/20/22 01:15 Pramipexole Di-Hcl 0.5 Mg Tab PO 05/20/22 00:22 0.25 mg ONCE ONE Administration Fluticasone/Salmeterol 2 puff 05/20/22 07:00 05/20/22 06:57 Fluticasone/Salmeterol /21 - 120 Puff Common Canister IH 06/19/22 06:59 2 puff BIDRT FAHEEM Administration Simvastatin 40 mg 05/20/22 00:23 05/20/22 01:17 Simvastatin 20 Mg Tablet PO 05/20/22 00:24 40 mg ONCE ONE Administration Sterile Water Confirm 05/20/22 05:25 Water For Injection,Sterile 10 Ml Vial Administered 05/20/22 05:26 Dose 10 ml IJ .STK-MED ONE Theophylline 400 mg 05/20/22 00:23 05/20/22 01:17 Theophylline Anhydrous 400 Mg Tab.Er.24hr Tablet PO 05/20/22 00:24 400 mg ONCE ONE Administration Lab/Rad Data: Laboratory Result Diagrams 05/19/22 19:45 05/19/22 19:45 Laboratory Results 05/19/22 05/19/22 05/19/22 Range/Units 22:00 19:48 19:45 WBC (4.0-10.5) x10^3/uL RBC (4.1-5.6) x10^6/uL Hgb (12.5-18.0) g/dL Hct (42-50) % MCV (78-100) fL MCH (26-32) pg MCHC (32-36) g/dL RDW (11.5-14.0) % Plt Count (150-450) x10^3/uL MPV (7.5-11.0) fL Gran % (36.0-66.0) % Immature Gran % (Auto) (0.00-0.4) % Nucleat RBC Rel Count (0.00-0.1) % Eos # (Auto) (0-0.5) x10^3/uL Immature Gran # (Auto) (0.00-0.03) x10^3u/L Absolute Lymphs (auto) (1.0-4.6) x10^3/uL Absolute Monos (auto) (0.0-1.3) x10^3/uL Absolute Nucleated RBC (0.00-0.01) x10^3u/L Lymphocytes % (24.0-44.0) % Monocytes % (0.0-12.0) % Eosinophils % (0.00-5.0) % Basophils % (0.0-0.4) % Absolute Granulocytes (1.4-6.9) x10^3/uL Basophils # (0-0.4) x10^3/uL Puncture Site RIGHT RADIAL pCO2 46 H (35-45) mmHg pO2 77 (75-100) mmHg Base Excess 7.0 H (-2.0-2.0) O2 Saturation 95.1 (94-100) g/dF ABG pH 7.45 (7.35-7.45) ABG HCO3 32.0 H* (22-28) ABG O2 Sat (Measured) 96.5 (95-100) % Gokul Test YES A-a Gradient 151 a/A Ratio 0.34 Hemoglobin 12.5 Carboxyhemoglobin 0.8 (0.0-6.9) % THgb Methemoglobin 0.5 L (1.4-1.5) % Potassium 4.2 (3.5-5.1) Temperature 37.0 C POC O2 Flow Rate 40 % Sodium (137-145) mmol/L Chloride (98-107) mmol/L Carbon Dioxide (22-30) mmol/L Anion Gap (5-15) MEQ/L BUN (9-20) mg/dL Creatinine (0.66-1.25) mg/dL Estimated GFR ML/MIN Glucose (74-106) mg/dL Lactic Acid (0.4-2.0) Calcium (8.4-10.2) mg/dL Magnesium (1.6-2.3) mg/dL Total Bilirubin (0.2-1.3) mg/dL AST (17-59) U/L ALT (0-50) U/L Alkaline Phosphatase (38-126) U/L Troponin I (0.000-0.034) ng/mL NT-Pro-B Natriuret Pep (0-1800) pg/mL Serum Total Protein (6.3-8.2) g/dL Albumin (3.5-5.0) g/dL Procalcitonin 0.055 (0.030-0.080) ng/mL Influenza Type A Ag NEGATIVE (NEGATIVE) Influenza Type B Ag NEGATIVE (NEGATIVE) RSV (PCR) NEGATIVE (Negative) SARS-CoV-2 (PCR) NEGATIVE (NEGATIVE) 05/19/22 05/19/22 05/19/22 Range/Units 19:45 19:45 19:45 WBC 8.6 (4.0-10.5) x10^3/uL RBC 4.63 (4.1-5.6) x10^6/uL Hgb 12.3 L (12.5-18.0) g/dL Hct 39.8 L (42-50) % MCV 86.0 (78-100) fL MCH 26.6 (26-32) pg MCHC 30.9 L (32-36) g/dL RDW 15.1 H (11.5-14.0) % Plt Count 219 (150-450) x10^3/uL MPV 9.4 (7.5-11.0) fL Gran % 70.0 H (36.0-66.0) % Immature Gran % (Auto) 0.7 H (0.00-0.4) % Nucleat RBC Rel Count 0.0 (0.00-0.1) % Eos # (Auto) 0.13 (0-0.5) x10^3/uL Immature Gran # (Auto) 0.06 H (0.00-0.03) x10^3u/L Absolute Lymphs (auto) 1.56 (1.0-4.6) x10^3/uL Absolute Monos (auto) 0.81 (0.0-1.3) x10^3/uL Absolute Nucleated RBC 0.00 (0.00-0.01) x10^3u/L Lymphocytes % 18.1 L (24.0-44.0) % Monocytes % 9.4 (0.0-12.0) % Eosinophils % 1.5 (0.00-5.0) % Basophils % 0.3 (0.0-0.4) % Absolute Granulocytes 6.04 (1.4-6.9) x10^3/uL Basophils # 0.03 (0-0.4) x10^3/uL Puncture Site pCO2 (35-45) mmHg pO2 (75-100) mmHg Base Excess (-2.0-2.0) O2 Saturation (94-100) g/dF ABG pH (7.35-7.45) ABG HCO3 (22-28) ABG O2 Sat (Measured) (95-100) % Gokul Test A-a Gradient a/A Ratio Hemoglobin Carboxyhemoglobin (0.0-6.9) % THgb Methemoglobin (1.4-1.5) % Potassium 4.3 (3.5-5.1) Temperature C POC O2 Flow Rate % Sodium 138 (137-145) mmol/L Chloride 101 (98-107) mmol/L Carbon Dioxide 32 H (22-30) mmol/L Anion Gap 8.7 (5-15) MEQ/L BUN 10 (9-20) mg/dL Creatinine 0.58 L (0.66-1.25) mg/dL Estimated GFR > 60.0 ML/MIN Glucose 138 H (74-106) mg/dL Lactic Acid (0.4-2.0) Calcium 8.8 (8.4-10.2) mg/dL Magnesium 2.0 (1.6-2.3) mg/dL Total Bilirubin 1.10 (0.2-1.3) mg/dL AST 19 (17-59) U/L ALT 15 (0-50) U/L Alkaline Phosphatase 49 (38-126) U/L Troponin I < 0.012 (0.000-0.034) ng/mL NT-Pro-B Natriuret Pep 149 (0-1800) pg/mL Serum Total Protein 6.7 (6.3-8.2) g/dL Albumin 4.0 (3.5-5.0) g/dL Procalcitonin (0.030-0.080) ng/mL Influenza Type A Ag (NEGATIVE) Influenza Type B Ag (NEGATIVE) RSV (PCR) (Negative) SARS-CoV-2 (PCR) (NEGATIVE) 05/19/22 Range/Units 19:32 WBC (4.0-10.5) x10^3/uL RBC (4.1-5.6) x10^6/uL Hgb (12.5-18.0) g/dL Hct (42-50) % MCV (78-100) fL MCH (26-32) pg MCHC (32-36) g/dL RDW (11.5-14.0) % Plt Count (150-450) x10^3/uL MPV (7.5-11.0) fL Gran % (36.0-66.0) % Immature Gran % (Auto) (0.00-0.4) % Nucleat RBC Rel Count (0.00-0.1) % Eos # (Auto) (0-0.5) x10^3/uL Immature Gran # (Auto) (0.00-0.03) x10^3u/L Absolute Lymphs (auto) (1.0-4.6) x10^3/uL Absolute Monos (auto) (0.0-1.3) x10^3/uL Absolute Nucleated RBC (0.00-0.01) x10^3u/L Lymphocytes % (24.0-44.0) % Monocytes % (0.0-12.0) % Eosinophils % (0.00-5.0) % Basophils % (0.0-0.4) % Absolute Granulocytes (1.4-6.9) x10^3/uL Basophils # (0-0.4) x10^3/uL Puncture Site LEFT RADIAL pCO2 55 H (35-45) mmHg pO2 67 L (75-100) mmHg Base Excess 9.3 H (-2.0-2.0) O2 Saturation 93.3 L (94-100) g/dF ABG pH 7.42 (7.35-7.45) ABG HCO3 35.7 H* (22-28) ABG O2 Sat (Measured) 94.2 L (95-100) % Ogkul Test YES A-a Gradient 121 a/A Ratio 0.36 Hemoglobin 13.1 Carboxyhemoglobin 1.0 (0.0-6.9) % THgb Methemoglobin 0.1 L (1.4-1.5) % Potassium 4.3 (3.5-5.1) Temperature 37.0 C POC O2 Flow Rate 36 % Sodium (137-145) mmol/L Chloride (98-107) mmol/L Carbon Dioxide (22-30) mmol/L Anion Gap (5-15) MEQ/L BUN (9-20) mg/dL Creatinine (0.66-1.25) mg/dL Estimated GFR ML/MIN Glucose (74-106) mg/dL Lactic Acid 1.4 (0.4-2.0) Calcium (8.4-10.2) mg/dL Magnesium (1.6-2.3) mg/dL Total Bilirubin (0.2-1.3) mg/dL AST (17-59) U/L ALT (0-50) U/L Alkaline Phosphatase (38-126) U/L Troponin I (0.000-0.034) ng/mL NT-Pro-B Natriuret Pep (0-1800) pg/mL Serum Total Protein (6.3-8.2) g/dL Albumin (3.5-5.0) g/dL Procalcitonin (0.030-0.080) ng/mL Influenza Type A Ag (NEGATIVE) Influenza Type B Ag (NEGATIVE) RSV (PCR) (Negative) SARS-CoV-2 (PCR) (NEGATIVE) - Progress Progress: improved Air Movement: good Progress Note: 05/19/22 20:53 76-year-old is evaluated for worsening shortness of breath. Patient is given another breathing treatment on presentation in the ER and switch back to nasal cannula and is feeling much better on reevaluation. X-rays reviewed by me show some element of pneumonic infiltrates/airspace disease on the right lower lobe. Given a dose of antibiotics. Has normal white count, grossly unremarkable chemistries and negative initial troponins. I believe patient has COPD exacerbation, need IV steroids and breathing treatments. Discussed with Dr. Harper patient is excepted for admission. Blood Culture(s) Obtained: Yes Antibiotics given: Yes Discussed with DrManuel: Jesse Will see patient in: hospital (observation) Counseled pt/family regarding: lab results, diagnosis, need for follow-up, rad results - Departure Departure Disposition: Observation Clinical Impression: Acute on chronic respiratory failure with hypoxia, COPD exacerbation Condition: Stable Critical Care Time: No
[2022-05-19 19:59] LABS: Absolute Neutrophil Ct (ANC) 6.04 x10^3/uL (1.4-6.9); Basophil (Absolute #) 0.03 x10^3/uL (0-0.4); Eosinophil % 1.5 % (0.00-5.0); Eosinophil (Absolute #) 0.13 x10^3/uL (0-0.5); Hematocrit 39.8 % (42-50); Hemoglobin 12.3 g/dL (12.5-18.0); Lymphocyte (Absolute #) 1.56 x10^3/uL (1.0-4.6); Lymphocytes % 18.1 % (24.0-44.0); Mean Corpuscular Hemoglobin 26.6 pg (26-32); Mean Corpuscular Hgb Concent. 30.9 g/dL (32-36); Mean Platelet Volume 9.4 fL (7.5-11.0); Monocyte (Absolute #) 0.81 x10^3/uL (0.0-1.3); Monocytes % 9.4 % (0.0-12.0); Platelet Count 219 x10^3/uL (150-450); Red Blood Count 4.63 x10^6/uL (4.1-5.6); Red Cell Distribution Width 15.1 % (11.5-14.0); White Blood Count 8.6 x10^3/uL (4.0-10.5)
[2022-05-19] MEDS ORDERED: ROCEPHIN 2 Gm-D5w 50ML BAG** 2 G/50 ML IVPB IV STA (20:08)
[2022-05-19] MEDS ORDERED: Zithromax 500 MG/ 250 ML NaCl Premix 500 MG/250 ML IVPB IV STA (20:08)
[2022-05-19] MEDS ORDERED: ROCEPHIN 2 Gm-D5w 50ML BAG** 2 G/50 ML IVPB IV ONE (20:12)
[2022-05-19 20:19] LABS: ALKALINE PHOSPHATASE 49 U/L (38-126); ANION GAP 8.7 MEQ/L (5-15); BLOOD UREA NITROGEN 10 mg/dL (9-20); CHLORIDE 101 mmol/L (98-107); Calcium 8.8 mg/dL (8.4-10.2); Carbon Dioxide 32 mmol/L (22-30); Creatinine 1 0.58 mg/dL (0.66-1.25); EST GLOMERULAR FILTRATION RATE > 60.0 ML/MIN; Glucose 138 mg/dL (74-106); NT PRO BNP 149 pg/mL (0-1800); Potassium 4.3 mmol/L (3.5-5.1); SGOT/AST 19 U/L (17-59); SGPT/ALT 15 U/L (0-50); SODIUM 138 mmol/L (137-145); Total Protein 6.7 g/dL (6.3-8.2)
[2022-05-19 20:27] LABS: INFLUENZA A NEGATIVE (NEGATIVE); INFLUENZA B NEGATIVE (NEGATIVE); RESPIRATORY SYNCTIAL VIRUS NEGATIVE (Negative); SARS-CoV-2 Xpert Express NEGATIVE (NEGATIVE)
[2022-05-19] MEDS ORDERED: Zithromax 500 MG/ 250 ML NaCl Premix 500 MG/250 ML IVPB IV ONE (20:36)
[2022-05-19 20:57] LABS: A-aADO2 121; ABG HEMOGLOBIN 13.1; ABG POTASSIUM 4.3 (3.5-5.1); ABG SITE LEFT RADIAL; ALLEN TEST OK? YES; ARTERIAL BLD GAS O2 SATURATION 94.2 % (95-100); ARTERIAL BLOOD GAS BASE EXCESS 9.3 (-2.0-2.0); ARTERIAL BLOOD GAS FIO2 36 %; ARTERIAL BLOOD GAS PCO2 55 mmHg (35-45); ARTERIAL BLOOD GAS PO2 67 mmHg (75-100); ARTERIAL BLOOD GAS pH 7.42 (7.35-7.45); HCO3- 35.7 (22-28); HGB O2 SAT 93.3 g/dF (94-100); Lactic Acid 1.4 (0.4-2.0); Methhemoglobin 0.1 % (1.4-1.5)
[2022-05-19 22:08] LABS: A-aADO2 151; ABG HEMOGLOBIN 12.5; ABG POTASSIUM 4.2 (3.5-5.1); ABG SITE RIGHT RADIAL; ALLEN TEST OK? YES; ARTERIAL BLD GAS O2 SATURATION 96.5 % (95-100); ARTERIAL BLOOD GAS FIO2 40 %; ARTERIAL BLOOD GAS PCO2 46 mmHg (35-45); ARTERIAL BLOOD GAS PO2 77 mmHg (75-100); ARTERIAL BLOOD GAS pH 7.45 (7.35-7.45); CARBOXYHEMOGLOBIN 0.8 % THgb (0.0-6.9); HGB O2 SAT 95.1 g/dF (94-100); Methhemoglobin 0.5 % (1.4-1.5)
[2022-05-19] MEDS ORDERED: MORPHINE SULFATE 2 MG INJ IV PRN (22:40)
[2022-05-19] MEDS ORDERED: TYLENOL 325 MG PO PRN (22:40)
[2022-05-19] MEDS ORDERED: HUMALOG SQ PRN (22:40)
[2022-05-20] MEDS ORDERED: XANAX 1 MG PO ONE (00:19)
[2022-05-20] MEDS ORDERED: ECOTRIN 81 MG PO ONE (00:19)
[2022-05-20] MEDS ORDERED: Xalatan OP ONE (00:20)
[2022-05-20] MEDS ORDERED: Mirapex 0.5 MG Tablet PO ONE (00:21)
[2022-05-20] MEDS ORDERED: Lopressor 25MG Tab PO ONE (00:21)
[2022-05-20] MEDS ORDERED: THEOPHYLLINE ER 24HR PO ONE (00:23)
[2022-05-20] MEDS ORDERED: ZOCOR 20MG PO ONE (00:23)
[2022-05-20] MEDS: DUONEB 0.5-3 MG/3 ml Neb IH SCH ×4 (00:27→19:10)
[2022-05-20] MEDS ORDERED: solu-MEDROL ONE ×3 (01:02→17:37)
[2022-05-20] MEDS: solu-MEDROL 60 MG, Sterile H2O 10 ml 2 ML IV SCH ×8 (01:19→17:53)
[2022-05-20 04:45] LABS: Absolute Neutrophil Ct (ANC) 6.25 x10^3/uL (1.4-6.9); Basophil (Absolute #) 0.01 x10^3/uL (0-0.4); Eosinophil % 0.1 % (0.00-5.0); Eosinophil (Absolute #) 0.01 x10^3/uL (0-0.5); Hematocrit 38.8 % (42-50); Lymphocyte (Absolute #) 0.38 x10^3/uL (1.0-4.6); Lymphocytes % 5.6 % (24.0-44.0); Mean Cell Volume 84.2 fL (78-100); Mean Corpuscular Hgb Concent. 30.9 g/dL (32-36); Mean Platelet Volume 9.6 fL (7.5-11.0); Monocyte (Absolute #) 0.06 x10^3/uL (0.0-1.3); Monocytes % 0.9 % (0.0-12.0); Neutrophil % 92.6 % (36.0-66.0); Platelet Count 231 x10^3/uL (150-450); Red Blood Count 4.61 x10^6/uL (4.1-5.6); Red Cell Distribution Width 14.9 % (11.5-14.0); White Blood Count 6.8 x10^3/uL (4.0-10.5)
[2022-05-20 05:00] LABS: ALBUMIN 3.8 g/dL (3.5-5.0); ALKALINE PHOSPHATASE 46 U/L (38-126); ANION GAP 8.6 MEQ/L (5-15); BLOOD UREA NITROGEN 10 mg/dL (9-20); CHLORIDE 101 mmol/L (98-107); Calcium 8.8 mg/dL (8.4-10.2); Carbon Dioxide 30 mmol/L (22-30); Creatinine 1 0.53 mg/dL (0.66-1.25); EST GLOMERULAR FILTRATION RATE > 60.0 ML/MIN; Glucose 148 mg/dL (74-106); Potassium 4.3 mmol/L (3.5-5.1); SGOT/AST 20 U/L (17-59); SGPT/ALT 17 U/L (0-50); SODIUM 135 mmol/L (137-145); Total Protein 6.5 g/dL (6.3-8.2)
[2022-05-20] MEDS ORDERED: Sterile H2O 10 ml IJ ONE (05:25)
[2022-05-20 05:34] LABS: Slide Review 1 YES
[2022-05-20 05:41] LABS: Appearance CLEAR (CLEAR); Bilirubin NEGATIVE (NEGATIVE); Dipstick done @ ? MAIN LAB; Glucose NEGATIVE (NEGATIVE); Ketones SMALL-15 (NEGATIVE); Nitrite NEGATIVE (NEGATIVE); Protein,Urine Dip 30 (Negative); RBC NEGATIVE Ery/ul (0-5); Urobilinogen 1 mg/dL (0-1)
[2022-05-20 05:42] LABS: Mucus SLIGHT /HPF (NEGATIVE); RBC 0-2 /HPF (0-2); Urine Cultured Indicated? NO
[2022-05-20] MEDS: Advair Hfa 115/21 Common canister IH SCH ×2 (06:57→19:10)
--- NOTE | 2022-05-20 07:36 | XRAY ---
Indication: Short of breath. Comparison: February 20, 2022 Portable chest remains hyperinflated again with COPD, left upper lung suture material, and bibasilar fibrosis/scarring. No focal infiltrate, consolidation, or large effusion. Heart not enlarged for AP portable technique. Bony thorax intact again with mild osteopenia and degenerative changes. Impression: Continued nonacute chest with chronic features.
[2022-05-20] MEDS ORDERED: PROTONIX 40 MG IV IV SCH (10:00)
[2022-05-20] MEDS ORDERED: FLUZONE HIGH-DOSE QUAD 2022-23 IM ONE (10:00)
[2022-05-20] MEDS: ROCEPHIN 1 Gm-D5w 50 ml Bag** 1 G/50 ML IVPB IV SCH ×2 (10:20→21:08)
--- NOTE | 2022-05-20 12:31 | PCM.HP ---
History of Present Illness - Chief Complaint Chief Complaint: Acute on chronic hypoxic respiratory failure History of Present Illness: is a 76 year old male who presented to the ER with cough and worsening shortness of breath, he was hypoxic on usual home oxygen flow when ems arrived. he is feeling better since admission. - Review of Systems Constitutional: No Fever, No Chills Respiratory: Cough, Short Of Breath, Wheezing Cardiac: No Chest Pain, No Edema, No Syncope Abdominal/Gastrointestinal: No Abdominal Pain, No Nausea, No Vomiting, No Diarrhea Skin: No Rash Neurological: No Dizziness, No Focal Weakness, No Sensory Changes All Other Systems: Reviewed and Negative Medications & Allergies Home Medications: Home Medication List Albuterol 2.5 mg/3 ml Neb [Proventil 2.5 mg/3 ml Neb] 1 neb IH Q6H PRN 02/04/14 [History Confirmed 05/19/22] Aspirin 81 mg PO HS 02/04/14 [History Confirmed 05/19/22] Omeprazole 20 MG [Prilosec 20 mg] 20 mg PO BIDAC 02/04/14 [History Confirmed 05/19/22] Nitroglycerin 0.4 mg Tablet [Nitrostat 0.4 MG Tablet] 0.4 mg SL Q5MIN PRN MR X 3 PRN 08/01/16 [History Confirmed 05/19/22] ALPRAZolam 1 MG [Xanax 1 mg] 1 mg PO BID 10/14/18 [History Confirmed 05/19/22] Isosorbide Mononitrate 60 mg [Imdur 60MG] 60 mg PO DAILY 06/01/20 [History Confirmed 05/19/22] Metoprolol Tartrate 25 mg [Lopressor 25MG Tab] 25 mg PO BID 06/01/20 [History Confirmed 05/19/22] Rosuvastatin Calcium 20 mg PO HS 06/01/20 [History Confirmed 05/19/22] Spironolactone 25 mg [Aldactone 25 MG] 12.5 mg PO DAILY 01/25/21 [History Confirmed 05/19/22] Albuterol Sulfate [Proair Digihaler] 2 puffs IH Q6H PRN 03/24/21 [History Confirmed 05/19/22] Budesonide/Glycopyr/Formoterol [Breztri Aerosphere Inhaler] 2 puffs IH BID 03/24/21 [History Confirmed 05/19/22] Amlodipine Besylate 2.5 mg PO DAILY 06/12/21 [History Confirmed 05/19/22] Furosemide 20 mg [Lasix 20 mg] 20 mg PO DAILY 06/12/21 [History Confirmed 05/19/22] Pramipexole Di-HCl [Mirapex] 0.25 mg PO HS 06/12/21 [History Confirmed 05/19/22] Sacubitril/Valsartan [Entresto 97 mg-103 mg Tablet] 2 each PO DAILY 06/12/21 [History Confirmed 05/19/22] Carboxymethylcellulose Sodium [Refresh Liquigel] 1 ml OP HS 09/25/21 [History Confirmed 05/19/22] Latanoprost [Xalatan] 1 ml OP HS 09/25/21 [History Confirmed 05/19/22] Propylene Glycol/Peg 400 [Lubricating Eye Drop] 15 ml OP QID 09/25/21 [History Confirmed 05/19/22] Theophylline Anhydrous [Theophylline ER 24Hr] 400 mg PO BID #60 11/20/21 [Rx Confirmed 05/19/22] Prednisone 20 mg [Deltasone 20 mg] 5 mg PO DAILY 05/19/22 [History Confirmed 05/19/22] Allergies/Adverse Reactions: Allergies Allergy/AdvReac Type Severity Reaction Status Date / Time [facility] Allergy Severe Rash Verified 05/19/22 19:45 - Past Medical History Past Medical History: Yes Neurological History: No Pertinent History ENT History: Cataracts Cardiac History: Aneurysm, Congestive Heart Failure, Hypertension Respiratory History: CHF, COPD, Sleep Apnea, Other Endocrine Medical History: No Pertinent History Musculoskelatal History: No Pertinent History GI Medical History: No Pertinent History, GERD History: No Pertinent History Pyscho-Social History: Anxiety Male Reproductive Disorders: No Pertinent History Comment: 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 Pt also states he had an increase of SOB and chest pain that he has seen Dr. Bautista for and he has been put on nitro. PT wears 4L O2 AT ALL TIMES - Past Surgical History Past Surgical History: Yes Neuro Surgical History: No Pertinent History Cardiac History: No Pertinent History Respiratory Surgery: Other GI Surgical History: Hernia Repair Genitourinary Surgical Hx: No Pertinent History Musculskeletal Surgical Hx: Orthopedic Surgery Male Surgical History: Vasectomy Other Surgical History: BACK SURGERY, and ear surgery and a left lung biopsy. 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, double hernia repair, - Social History Smoking Status: Former smoker How long have you smoked: 13 Exposure to second hand smoke: No Alcohol: None Drug Use: none Significant Family History: no pertinent family hx - Physical Exam Vital Signs: Vital Signs - 24 hr Temp Pulse Resp BP Pulse Ox 05/20/22 11:56 97 F 91 H 26 H 125/71 96 05/20/22 07:28 98.0 F 78 23 122/74 90 L 05/20/22 07:16 75 24 94 L 05/20/22 07:05 94 L 05/20/22 04:00 97.5 F 77 28 H 95/58 94 L 05/20/22 00:27 93 H 22 91 L 05/19/22 23:07 97.8 F 94 H 40 H 132/85 91 L 05/19/22 22:28 96 05/19/22 22:22 74 18 114/73 95 05/19/22 21:00 81 19 112/72 93 L 05/19/22 19:40 104 H 22 96 05/19/22 19:34 30 H 96 05/19/22 19:27 98.7 F 102 H 30 H 121/86 96 General Appearance: no apparent distress, alert Neurologic Exam: alert, oriented x 3, cooperative, normal mood/affect, nml cerebellar function, nml station & gait, sensation nml, No motor deficits Respiratory Exam: diminished breath sounds, prolonged expirations, wheezing Cardiovascular Exam: regular rate/rhythm, normal heart sounds, normal peripheral pulses Gastrointestinal/Abdomen Exam: soft, normal bowel sounds, No tenderness, No mass Extremity Exam: normal inspection, normal range of motion, pelvis stable Skin Exam: normal color, warm, dry, No rash Results - Labs Lab/Micro Results: Lab Results-Last 24 Hours 05/19/22 05/19/22 05/19/22 Range/Units 19:32 19:45 19:45 WBC 8.6 (4.0-10.5) x10^3/uL RBC 4.63 (4.1-5.6) x10^6/uL Hgb 12.3 L (12.5-18.0) g/dL Hct 39.8 L (42-50) % MCV 86.0 (78-100) fL MCH 26.6 (26-32) pg MCHC 30.9 L (32-36) g/dL RDW 15.1 H (11.5-14.0) % Plt Count 219 (150-450) x10^3/uL MPV 9.4 (7.5-11.0) fL Gran % 70.0 H (36.0-66.0) % Immature Gran % (Auto) 0.7 H (0.00-0.4) % Nucleat RBC Rel Count 0.0 (0.00-0.1) % Eos # (Auto) 0.13 (0-0.5) x10^3/uL Immature Gran # (Auto) 0.06 H (0.00-0.03) x10^3u/L Absolute Lymphs (auto) 1.56 (1.0-4.6) x10^3/uL Absolute Monos (auto) 0.81 (0.0-1.3) x10^3/uL Absolute Nucleated RBC 0.00 (0.00-0.01) x10^3u/L Lymphocytes % 18.1 L (24.0-44.0) % Monocytes % 9.4 (0.0-12.0) % Eosinophils % 1.5 (0.00-5.0) % Basophils % 0.3 (0.0-0.4) % Absolute Granulocytes 6.04 (1.4-6.9) x10^3/uL Basophils # 0.03 (0-0.4) x10^3/uL Puncture Site LEFT RADIAL pCO2 55 H (35-45) mmHg pO2 67 L (75-100) mmHg Base Excess 9.3 H (-2.0-2.0) O2 Saturation 93.3 L (94-100) g/dF ABG pH 7.42 (7.35-7.45) ABG HCO3 35.7 H* (22-28) ABG O2 Sat (Measured) 94.2 L (95-100) % Gokul Test YES A-a Gradient 121 a/A Ratio 0.36 Hemoglobin 13.1 Carboxyhemoglobin 1.0 (0.0-6.9) % THgb Methemoglobin 0.1 L (1.4-1.5) % Potassium 4.3 4.3 (3.5-5.1) Temperature 37.0 C POC O2 Flow Rate 36 % Sodium 138 (137-145) mmol/L Chloride 101 (98-107) mmol/L Carbon Dioxide 32 H (22-30) mmol/L Anion Gap 8.7 (5-15) MEQ/L BUN 10 (9-20) mg/dL Creatinine 0.58 L (0.66-1.25) mg/dL Estimated GFR > 60.0 ML/MIN Glucose 138 H (74-106) mg/dL POC Glucometer (74 to 106) mg/dL Lactic Acid 1.4 (0.4-2.0) Calcium 8.8 (8.4-10.2) mg/dL Magnesium 2.0 (1.6-2.3) mg/dL Total Bilirubin 1.10 (0.2-1.3) mg/dL AST 19 (17-59) U/L ALT 15 (0-50) U/L Alkaline Phosphatase 49 (38-126) U/L Troponin I (0.000-0.034) ng/mL NT-Pro-B Natriuret Pep 149 (0-1800) pg/mL Serum Total Protein 6.7 (6.3-8.2) g/dL Albumin 4.0 (3.5-5.0) g/dL Procalcitonin (0.030-0.080) ng/mL Urinalys Dipstick Clnc Urine Color (YELLOW) Urine Appearance (CLEAR) Urine pH (5-6) Ur Specific Leroy (1.005-1.025) POC Urine Protein Conf (Negative) Urine Ketones (NEGATIVE) Urine Nitrite (NEGATIVE) Urine Bilirubin (NEGATIVE) Urine Urobilinogen (0-1) mg/dL Urine Leukocytes (NEGATIVE) Urine WBC (Auto) (0-5) /HPF Urine RBC (Auto) (0-2) /HPF U Epithel Cells (Auto) (FEW) /HPF Urine Bacteria (Auto) (NEGATIVE) /HPF Urine RBC (0-5) Johan/ul Urine Mucus (Auto) (NEGATIVE) /HPF Ur Culture Indicated? Urine Glucose (NEGATIVE) mg/dL Influenza Type A Ag (NEGATIVE) Influenza Type B Ag (NEGATIVE) RSV (PCR) (Negative) SARS-CoV-2 (PCR) (NEGATIVE) Slides for Path Review 05/19/22 05/19/22 05/19/22 Range/Units 19:45 19:45 19:48 WBC (4.0-10.5) x10^3/uL RBC (4.1-5.6) x10^6/uL Hgb (12.5-18.0) g/dL Hct (42-50) % MCV (78-100) fL MCH (26-32) pg MCHC (32-36) g/dL RDW (11.5-14.0) % Plt Count (150-450) x10^3/uL MPV (7.5-11.0) fL Gran % (36.0-66.0) % Immature Gran % (Auto) (0.00-0.4) % Nucleat RBC Rel Count (0.00-0.1) % Eos # (Auto) (0-0.5) x10^3/uL Immature Gran # (Auto) (0.00-0.03) x10^3u/L Absolute Lymphs (auto) (1.0-4.6) x10^3/uL Absolute Monos (auto) (0.0-1.3) x10^3/uL Absolute Nucleated RBC (0.00-0.01) x10^3u/L Lymphocytes % (24.0-44.0) % Monocytes % (0.0-12.0) % Eosinophils % (0.00-5.0) % Basophils % (0.0-0.4) % Absolute Granulocytes (1.4-6.9) x10^3/uL Basophils # (0-0.4) x10^3/uL Puncture Site pCO2 (35-45) mmHg pO2 (75-100) mmHg Base Excess (-2.0-2.0) O2 Saturation (94-100) g/dF ABG pH (7.35-7.45) ABG HCO3 (22-28) ABG O2 Sat (Measured) (95-100) % Gokul Test A-a Gradient a/A Ratio Hemoglobin Carboxyhemoglobin (0.0-6.9) % THgb Methemoglobin (1.4-1.5) % Potassium (3.5-5.1) Temperature C POC O2 Flow Rate % Sodium (137-145) mmol/L Chloride (98-107) mmol/L Carbon Dioxide (22-30) mmol/L Anion Gap (5-15) MEQ/L BUN (9-20) mg/dL Creatinine (0.66-1.25) mg/dL Estimated GFR ML/MIN Glucose (74-106) mg/dL POC Glucometer (74 to 106) mg/dL Lactic Acid (0.4-2.0) Calcium (8.4-10.2) mg/dL Magnesium (1.6-2.3) mg/dL Total Bilirubin (0.2-1.3) mg/dL AST (17-59) U/L ALT (0-50) U/L Alkaline Phosphatase (38-126) U/L Troponin I < 0.012 (0.000-0.034) ng/mL NT-Pro-B Natriuret Pep (0-1800) pg/mL Serum Total Protein (6.3-8.2) g/dL Albumin (3.5-5.0) g/dL Procalcitonin 0.055 (0.030-0.080) ng/mL Urinalys Dipstick Clnc Urine Color (YELLOW) Urine Appearance (CLEAR) Urine pH (5-6) Ur Specific Leroy (1.005-1.025) POC Urine Protein Conf (Negative) Urine Ketones (NEGATIVE) Urine Nitrite (NEGATIVE) Urine Bilirubin (NEGATIVE) Urine Urobilinogen (0-1) mg/dL Urine Leukocytes (NEGATIVE) Urine WBC (Auto) (0-5) /HPF Urine RBC (Auto) (0-2) /HPF U Epithel Cells (Auto) (FEW) /HPF Urine Bacteria (Auto) (NEGATIVE) /HPF Urine RBC (0-5) Johan/ul Urine Mucus (Auto) (NEGATIVE) /HPF Ur Culture Indicated? Urine Glucose (NEGATIVE) mg/dL Influenza Type A Ag NEGATIVE (NEGATIVE) Influenza Type B Ag NEGATIVE (NEGATIVE) RSV (PCR) NEGATIVE (Negative) SARS-CoV-2 (PCR) NEGATIVE (NEGATIVE) Slides for Path Review 05/19/22 05/19/22 05/20/22 Range/Units 22:00 23:45 04:42 WBC (4.0-10.5) x10^3/uL RBC (4.1-5.6) x10^6/uL Hgb (12.5-18.0) g/dL Hct (42-50) % MCV (78-100) fL MCH (26-32) pg MCHC (32-36) g/dL RDW (11.5-14.0) % Plt Count (150-450) x10^3/uL MPV (7.5-11.0) fL Gran % (36.0-66.0) % Immature Gran % (Auto) (0.00-0.4) % Nucleat RBC Rel Count (0.00-0.1) % Eos # (Auto) (0-0.5) x10^3/uL Immature Gran # (Auto) (0.00-0.03) x10^3u/L Absolute Lymphs (auto) (1.0-4.6) x10^3/uL Absolute Monos (auto) (0.0-1.3) x10^3/uL Absolute Nucleated RBC (0.00-0.01) x10^3u/L Lymphocytes % (24.0-44.0) % Monocytes % (0.0-12.0) % Eosinophils % (0.00-5.0) % Basophils % (0.0-0.4) % Absolute Granulocytes (1.4-6.9) x10^3/uL Basophils # (0-0.4) x10^3/uL Puncture Site RIGHT RADIAL pCO2 46 H (35-45) mmHg pO2 77 (75-100) mmHg Base Excess 7.0 H (-2.0-2.0) O2 Saturation 95.1 (94-100) g/dF ABG pH 7.45 (7.35-7.45) ABG HCO3 32.0 H* (22-28) ABG O2 Sat (Measured) 96.5 (95-100) % Gokul Test YES A-a Gradient 151 a/A Ratio 0.34 Hemoglobin 12.5 Carboxyhemoglobin 0.8 (0.0-6.9) % THgb Methemoglobin 0.5 L (1.4-1.5) % Potassium 4.2 (3.5-5.1) Temperature 37.0 C POC O2 Flow Rate 40 % Sodium (137-145) mmol/L Chloride (98-107) mmol/L Carbon Dioxide (22-30) mmol/L Anion Gap (5-15) MEQ/L BUN (9-20) mg/dL Creatinine (0.66-1.25) mg/dL Estimated GFR ML/MIN Glucose (74-106) mg/dL POC Glucometer (74 to 106) mg/dL Lactic Acid (0.4-2.0) Calcium (8.4-10.2) mg/dL Magnesium (1.6-2.3) mg/dL Total Bilirubin (0.2-1.3) mg/dL AST (17-59) U/L ALT (0-50) U/L Alkaline Phosphatase (38-126) U/L Troponin I < 0.012 < 0.012 (0.000-0.034) ng/mL NT-Pro-B Natriuret Pep (0-1800) pg/mL Serum Total Protein (6.3-8.2) g/dL Albumin (3.5-5.0) g/dL Procalcitonin (0.030-0.080) ng/mL Urinalys Dipstick Clnc Urine Color (YELLOW) Urine Appearance (CLEAR) Urine pH (5-6) Ur Specific Leroy (1.005-1.025) POC Urine Protein Conf (Negative) Urine Ketones (NEGATIVE) Urine Nitrite (NEGATIVE) Urine Bilirubin (NEGATIVE) Urine Urobilinogen (0-1) mg/dL Urine Leukocytes (NEGATIVE) Urine WBC (Auto) (0-5) /HPF Urine RBC (Auto) (0-2) /HPF U Epithel Cells (Auto) (FEW) /HPF Urine Bacteria (Auto) (NEGATIVE) /HPF Urine RBC (0-5) Johan/ul Urine Mucus (Auto) (NEGATIVE) /HPF Ur Culture Indicated? Urine Glucose (NEGATIVE) mg/dL Influenza Type A Ag (NEGATIVE) Influenza Type B Ag (NEGATIVE) RSV (PCR) (Negative) SARS-CoV-2 (PCR) (NEGATIVE) Slides for Path Review 05/20/22 05/20/22 05/20/22 Range/Units 04:42 04:42 05:19 WBC 6.8 (4.0-10.5) x10^3/uL RBC 4.61 (4.1-5.6) x10^6/uL Hgb 12.0 L (12.5-18.0) g/dL Hct 38.8 L (42-50) % MCV 84.2 (78-100) fL MCH 26.0 (26-32) pg MCHC 30.9 L (32-36) g/dL RDW 14.9 H (11.5-14.0) % Plt Count 231 (150-450) x10^3/uL MPV 9.6 (7.5-11.0) fL Gran % 92.6 H (36.0-66.0) % Immature Gran % (Auto) 0.7 H (0.00-0.4) % Nucleat RBC Rel Count 0.0 (0.00-0.1) % Eos # (Auto) 0.01 (0-0.5) x10^3/uL Immature Gran # (Auto) 0.05 H (0.00-0.03) x10^3u/L Absolute Lymphs (auto) 0.38 L (1.0-4.6) x10^3/uL Absolute Monos (auto) 0.06 (0.0-1.3) x10^3/uL Absolute Nucleated RBC 0.00 (0.00-0.01) x10^3u/L Lymphocytes % 5.6 L (24.0-44.0) % Monocytes % 0.9 (0.0-12.0) % Eosinophils % 0.1 (0.00-5.0) % Basophils % 0.1 (0.0-0.4) % Absolute Granulocytes 6.25 (1.4-6.9) x10^3/uL Basophils # 0.01 (0-0.4) x10^3/uL Puncture Site pCO2 (35-45) mmHg pO2 (75-100) mmHg Base Excess (-2.0-2.0) O2 Saturation (94-100) g/dF ABG pH (7.35-7.45) ABG HCO3 (22-28) ABG O2 Sat (Measured) (95-100) % Gokul Test A-a Gradient a/A Ratio Hemoglobin Carboxyhemoglobin (0.0-6.9) % THgb Methemoglobin (1.4-1.5) % Potassium 4.3 (3.5-5.1) Temperature C POC O2 Flow Rate % Sodium 135 L (137-145) mmol/L Chloride 101 (98-107) mmol/L Carbon Dioxide 30 (22-30) mmol/L Anion Gap 8.6 (5-15) MEQ/L BUN 10 (9-20) mg/dL Creatinine 0.53 L (0.66-1.25) mg/dL Estimated GFR > 60.0 ML/MIN Glucose 148 H (74-106) mg/dL POC Glucometer (74 to 106) mg/dL Lactic Acid (0.4-2.0) Calcium 8.8 (8.4-10.2) mg/dL Magnesium (1.6-2.3) mg/dL Total Bilirubin 0.80 (0.2-1.3) mg/dL AST 20 (17-59) U/L ALT 17 (0-50) U/L Alkaline Phosphatase 46 (38-126) U/L Troponin I (0.000-0.034) ng/mL NT-Pro-B Natriuret Pep (0-1800) pg/mL Serum Total Protein 6.5 (6.3-8.2) g/dL Albumin 3.8 (3.5-5.0) g/dL Procalcitonin (0.030-0.080) ng/mL Urinalys Dipstick Clnc MAIN LAB Urine Color YELLOW (YELLOW) Urine Appearance CLEAR (CLEAR) Urine pH 7.0 (5-6) Ur Specific Leroy 1.020 (1.005-1.025) POC Urine Protein Conf 30 (Negative) Urine Ketones SMALL-15 (NEGATIVE) Urine Nitrite NEGATIVE (NEGATIVE) Urine Bilirubin NEGATIVE (NEGATIVE) Urine Urobilinogen 1 (0-1) mg/dL Urine Leukocytes NEGATIVE (NEGATIVE) Urine WBC (Auto) NONE (0-5) /HPF Urine RBC (Auto) 0-2 (0-2) /HPF U Epithel Cells (Auto) NONE (FEW) /HPF Urine Bacteria (Auto) NONE (NEGATIVE) /HPF Urine RBC NEGATIVE (0-5) Johan/ul Urine Mucus (Auto) SLIGHT (NEGATIVE) /HPF Ur Culture Indicated? NO Urine Glucose NEGATIVE (NEGATIVE) mg/dL Influenza Type A Ag (NEGATIVE) Influenza Type B Ag (NEGATIVE) RSV (PCR) (Negative) SARS-CoV-2 (PCR) (NEGATIVE) Slides for Path Review YES 05/20/22 05/20/22 Range/Units 06:49 11:15 WBC (4.0-10.5) x10^3/uL RBC (4.1-5.6) x10^6/uL Hgb (12.5-18.0) g/dL Hct (42-50) % MCV (78-100) fL MCH (26-32) pg MCHC (32-36) g/dL RDW (11.5-14.0) % Plt Count (150-450) x10^3/uL MPV (7.5-11.0) fL Gran % (36.0-66.0) % Immature Gran % (Auto) (0.00-0.4) % Nucleat RBC Rel Count (0.00-0.1) % Eos # (Auto) (0-0.5) x10^3/uL Immature Gran # (Auto) (0.00-0.03) x10^3u/L Absolute Lymphs (auto) (1.0-4.6) x10^3/uL Absolute Monos (auto) (0.0-1.3) x10^3/uL Absolute Nucleated RBC (0.00-0.01) x10^3u/L Lymphocytes % (24.0-44.0) % Monocytes % (0.0-12.0) % Eosinophils % (0.00-5.0) % Basophils % (0.0-0.4) % Absolute Granulocytes (1.4-6.9) x10^3/uL Basophils # (0-0.4) x10^3/uL Puncture Site pCO2 (35-45) mmHg pO2 (75-100) mmHg Base Excess (-2.0-2.0) O2 Saturation (94-100) g/dF ABG pH (7.35-7.45) ABG HCO3 (22-28) ABG O2 Sat (Measured) (95-100) % Gokul Test A-a Gradient a/A Ratio Hemoglobin Carboxyhemoglobin (0.0-6.9) % THgb Methemoglobin (1.4-1.5) % Potassium (3.5-5.1) Temperature C POC O2 Flow Rate % Sodium (137-145) mmol/L Chloride (98-107) mmol/L Carbon Dioxide (22-30) mmol/L Anion Gap (5-15) MEQ/L BUN (9-20) mg/dL Creatinine (0.66-1.25) mg/dL Estimated GFR ML/MIN Glucose (74-106) mg/dL POC Glucometer 126 H 147 H (74 to 106) mg/dL Lactic Acid (0.4-2.0) Calcium (8.4-10.2) mg/dL Magnesium (1.6-2.3) mg/dL Total Bilirubin (0.2-1.3) mg/dL AST (17-59) U/L ALT (0-50) U/L Alkaline Phosphatase (38-126) U/L Troponin I (0.000-0.034) ng/mL NT-Pro-B Natriuret Pep (0-1800) pg/mL Serum Total Protein (6.3-8.2) g/dL Albumin (3.5-5.0) g/dL Procalcitonin (0.030-0.080) ng/mL Urinalys Dipstick Clnc Urine Color (YELLOW) Urine Appearance (CLEAR) Urine pH (5-6) Ur Specific Leroy (1.005-1.025) POC Urine Protein Conf (Negative) Urine Ketones (NEGATIVE) Urine Nitrite (NEGATIVE) Urine Bilirubin (NEGATIVE) Urine Urobilinogen (0-1) mg/dL Urine Leukocytes (NEGATIVE) Urine WBC (Auto) (0-5) /HPF Urine RBC (Auto) (0-2) /HPF U Epithel Cells (Auto) (FEW) /HPF Urine Bacteria (Auto) (NEGATIVE) /HPF Urine RBC (0-5) Johan/ul Urine Mucus (Auto) (NEGATIVE) /HPF Ur Culture Indicated? Urine Glucose (NEGATIVE) mg/dL Influenza Type A Ag (NEGATIVE) Influenza Type B Ag (NEGATIVE) RSV (PCR) (Negative) SARS-CoV-2 (PCR) (NEGATIVE) Slides for Path Review Accuchecks Date 05/20/22 Date 05/20/22 Time 11:15 Time 06:49 - Radiology Impressions Radiology Exams & Impressions: Radiology Procedures Category Date Time Status CHEST 1 VIEW (PORTABLE) Stat Exams 05/19/22 19:32 Completed - Other Procedures and Tests Respiratory Therapy 05/19/22 20:06 Respiratory Therapy Assessment DAILY 05/19/22 22:40 Oxygen Nasal Cannula 5 lpm 05/20/22 01:37 BiPap/CPAP ROUTINE Assessment/Plan (1) Pneumonia Current Visit: Yes Status: Acute Assessment & Plan: continue rocephin/zithromax, nebs at this time Code(s): J18.9 - PNEUMONIA, UNSPECIFIED ORGANISM (2) COPD exacerbation Current Visit: No Status: Acute Assessment & Plan: continue rocephin/zithromax, IV solu medrol and nebs Code(s): J44.1 - CHRONIC OBSTRUCTIVE PULMONARY DISEASE W (ACUTE) EXACERBATION
[2022-05-20] MEDS ORDERED: MEDICATION INTERVENTION MC SCH ×3 (14:45→15:00)
[2022-05-20] MEDS: Imdur 60MG PO SCH (15:03)
[2022-05-20] MEDS: ENTRESTO 49 MG-51 MG TABLET PO SCH ×2 (15:03→20:50)
[2022-05-20] MEDS: NORVASC 5 MG PO SCH (15:04)
[2022-05-20] MEDS: Lopressor 25MG Tab PO SCH ×2 (15:04→20:47)
[2022-05-20] MEDS: LASIX 20 MG PO SCH (15:05)
[2022-05-20] MEDS: Aldactone 25 MG PO SCH (15:05)
[2022-05-20] MEDS ORDERED: NON-FORMULARY ITEM (Sacubitril/Valsartan [Entresto 97 Mg-103 Mg Tablet] 1 EACH Tablet) PO SCH (15:30)
[2022-05-20] MEDS ORDERED: NON-FORMULARY ITEM (Omeprazole 20 Mg [Prilosec 20 Mg] 20 MG Capsule.Dr) PO SCH (16:30)
[2022-05-20] MEDS ORDERED: PEG OP SCH (17:00)
[2022-05-20] MEDS ORDERED: PROPYLENE GLYCOL OP SCH (17:00)
[2022-05-20] MEDS: Xalatan OP SCH (20:45)
[2022-05-20] MEDS: XANAX 1 MG PO SCH (20:47)
[2022-05-20] MEDS: Mirapex 0.5 MG Tablet PO SCH (20:47)
[2022-05-20] MEDS: ZOCOR 20MG PO SCH (20:49)
[2022-05-20] MEDS: ECOTRIN 81 MG PO SCH (20:50)
[2022-05-20] MEDS: Zithromax 500 MG/ 250 ML NaCl Premix 500 MG/250 ML IVPB IV SCH (20:51)
[2022-05-20] MEDS: THEOPHYLLINE ER 24HR PO SCH (20:59)
[2022-05-20] MEDS ORDERED: PRAMIPEXOLE DI HCL 0.25 MG PO SCH (22:00)
[2022-05-20] MEDS ORDERED: NON-FORMULARY ITEM (Budesonide/Glycopyr/Formoterol [Breztri Aerosphere Inhaler] 10.7 GM Hf IH SCH (22:00)
[2022-05-20] MEDS ORDERED: NON-FORMULARY ITEM (Aspirin [Aspirin] 81 MG Tablet) PO SCH (22:00)
[2022-05-20] MEDS ORDERED: CARBOXYMETHYLCELLULOSE SODIUM OP SCH (22:00)
[2022-05-20] MEDS ORDERED: NON-FORMULARY ITEM (Rosuvastatin Calcium [Rosuvastatin Calcium] 20 MG Tablet) PO SCH (22:00)
[2022-05-21] MEDS: solu-MEDROL 60 MG, Sterile H2O 10 ml 2 ML IV SCH ×8 (00:04→17:58)
[2022-05-21] MEDS: DUONEB 0.5-3 MG/3 ml Neb IH SCH ×4 (00:48→19:01)
[2022-05-21 05:45] LABS: Absolute Neutrophil Ct (ANC) 9.65 x10^3/uL (1.4-6.9); Basophil (Absolute #) 0.02 x10^3/uL (0-0.4); Eosinophil (Absolute #) 0 x10^3/uL (0-0.5); Hematocrit 39.6 % (42-50); Hemoglobin 12.1 g/dL (12.5-18.0); Lymphocyte (Absolute #) 0.38 x10^3/uL (1.0-4.6); Lymphocytes % 3.6 % (24.0-44.0); Mean Cell Volume 86.5 fL (78-100); Mean Corpuscular Hemoglobin 26.4 pg (26-32); Mean Corpuscular Hgb Concent. 30.6 g/dL (32-36); Mean Platelet Volume 9.5 fL (7.5-11.0); Monocyte (Absolute #) 0.39 x10^3/uL (0.0-1.3); Monocytes % 3.7 % (0.0-12.0); Neutrophil % 92.1 % (36.0-66.0); Platelet Count 227 x10^3/uL (150-450); Red Blood Count 4.58 x10^6/uL (4.1-5.6); Red Cell Distribution Width 15.1 % (11.5-14.0); White Blood Count 10.5 x10^3/uL (4.0-10.5)
[2022-05-21 06:18] LABS: ANION GAP 7.7 MEQ/L (5-15); BLOOD UREA NITROGEN 13 mg/dL (9-20); CHLORIDE 100 mmol/L (98-107); Carbon Dioxide 33 mmol/L (22-30); EST GLOMERULAR FILTRATION RATE > 60.0 ML/MIN; Glucose 146 mg/dL (74-106); Potassium 4.2 mmol/L (3.5-5.1); SODIUM 136 mmol/L (137-145)
--- NOTE | 2022-05-21 09:06 | PCM.NOTE ---
Date and Time: 05/21/22904 Subjective Assessment: patient is improving, typically wears 4-5 L oxygen at home. he is concerned about going home too early but is encouarged with his progress Objective Exam General Appearance: no apparent distress Neurologic Exam: oriented x 3 Respiratory Exam: prolonged expirations, rhonchi Cardiovascular Exam: regular rate/rhythm, normal heart sounds Gastrointestinal/Abdomen Exam: soft, No tenderness, No mass OBJECTIVE DATA Vital Signs: Vital Signs - 24 hr Temp Pulse Resp BP Pulse Ox 05/21/22 08:31 96 05/21/22 07:32 97.5 F 67 20 145/70 92 L 05/21/22 07:17 76 20 96 05/21/22 03:56 97.6 F 74 21 133/77 96 05/21/22 01:14 75 22 93 L 05/20/22 23:33 97.9 F 75 24 105/57 95 05/20/22 19:21 97.5 F 87 28 H 133/65 92 L 05/20/22 19:10 94 H 26 H 87 L 05/20/22 16:00 98 F 92 H 26 H 140/78 91 L 05/20/22 13:01 106 H 24 96 05/20/22 11:56 97 F 91 H 26 H 125/71 96 Pain Assessment - Last Documented Pain Intensity 0 Intake and Output: Intake & Output 05/18/22 05/19/22 05/20/22 05/21/22 11:59 11:59 11:59 11:59 Intake Total 560 1402 Output Total 1750 Balance 560 -348 Weight 85.8 kg 86 kg Lab Results: Lab Results-Last 24 Hours 05/20/22 05/20/22 05/20/22 Range/Units 11:15 16:21 21:31 WBC (4.0-10.5) x10^3/uL RBC (4.1-5.6) x10^6/uL Hgb (12.5-18.0) g/dL Hct (42-50) % MCV (78-100) fL MCH (26-32) pg MCHC (32-36) g/dL RDW (11.5-14.0) % Plt Count (150-450) x10^3/uL MPV (7.5-11.0) fL Gran % (36.0-66.0) % Immature Gran % (Auto) (0.00-0.4) % Nucleat RBC Rel Count (0.00-0.1) % Eos # (Auto) (0-0.5) x10^3/uL Immature Gran # (Auto) (0.00-0.03) x10^3u/L Absolute Lymphs (auto) (1.0-4.6) x10^3/uL Absolute Monos (auto) (0.0-1.3) x10^3/uL Absolute Nucleated RBC (0.00-0.01) x10^3u/L Lymphocytes % (24.0-44.0) % Monocytes % (0.0-12.0) % Eosinophils % (0.00-5.0) % Basophils % (0.0-0.4) % Absolute Granulocytes (1.4-6.9) x10^3/uL Basophils # (0-0.4) x10^3/uL Sodium (137-145) mmol/L Potassium (3.5-5.1) mmol/L Chloride (98-107) mmol/L Carbon Dioxide (22-30) mmol/L Anion Gap (5-15) MEQ/L BUN (9-20) mg/dL Creatinine (0.66-1.25) mg/dL Estimated GFR ML/MIN Glucose (74-106) mg/dL POC Glucometer 147 H 162 H 177 H (74 to 106) mg/dL Calcium (8.4-10.2) mg/dL 05/21/22 05/21/22 05/21/22 Range/Units 05:02 05:02 07:00 WBC 10.5 (4.0-10.5) x10^3/uL RBC 4.58 (4.1-5.6) x10^6/uL Hgb 12.1 L (12.5-18.0) g/dL Hct 39.6 L (42-50) % MCV 86.5 (78-100) fL MCH 26.4 (26-32) pg MCHC 30.6 L (32-36) g/dL RDW 15.1 H (11.5-14.0) % Plt Count 227 (150-450) x10^3/uL MPV 9.5 (7.5-11.0) fL Gran % 92.1 H (36.0-66.0) % Immature Gran % (Auto) 0.4 (0.00-0.4) % Nucleat RBC Rel Count 0.0 (0.00-0.1) % Eos # (Auto) 0 (0-0.5) x10^3/uL Immature Gran # (Auto) 0.04 H (0.00-0.03) x10^3u/L Absolute Lymphs (auto) 0.38 L (1.0-4.6) x10^3/uL Absolute Monos (auto) 0.39 (0.0-1.3) x10^3/uL Absolute Nucleated RBC 0.00 (0.00-0.01) x10^3u/L Lymphocytes % 3.6 L (24.0-44.0) % Monocytes % 3.7 (0.0-12.0) % Eosinophils % 0.0 (0.00-5.0) % Basophils % 0.2 (0.0-0.4) % Absolute Granulocytes 9.65 H (1.4-6.9) x10^3/uL Basophils # 0.02 (0-0.4) x10^3/uL Sodium 136 L (137-145) mmol/L Potassium 4.2 (3.5-5.1) mmol/L Chloride 100 (98-107) mmol/L Carbon Dioxide 33 H (22-30) mmol/L Anion Gap 7.7 (5-15) MEQ/L BUN 13 (9-20) mg/dL Creatinine 0.60 L (0.66-1.25) mg/dL Estimated GFR > 60.0 ML/MIN Glucose 146 H (74-106) mg/dL POC Glucometer 128 H (74 to 106) mg/dL Calcium 9.0 (8.4-10.2) mg/dL Radiology Exams: Radiology Procedures Category Date Time Status CHEST 1 VIEW (PORTABLE) Stat Exams 05/19/22 19:32 Completed Assessment/Plan (1) Pneumonia Current Visit: Yes Status: Acute Assessment & Plan: continue rocephin/zithromax, clinical condition improving. Code(s): J18.9 - PNEUMONIA, UNSPECIFIED ORGANISM (2) COPD exacerbation Current Visit: Yes Status: Acute Assessment & Plan: continue nebs, IV solu medrol and abx as above. Code(s): J44.1 - CHRONIC OBSTRUCTIVE PULMONARY DISEASE W (ACUTE) EXACERBATION
[2022-05-21] MEDS ORDERED: NON-FORMULARY ITEM (Amlodipine Besylate [Amlodipine Besylate] 2.5 MG Tablet) PO SCH (10:00)
[2022-05-21] MEDS: Imdur 60MG PO SCH (10:05)
[2022-05-21] MEDS: XANAX 1 MG PO SCH ×2 (10:05→22:06)
[2022-05-21] MEDS: ENTRESTO 49 MG-51 MG TABLET PO SCH ×2 (10:05→22:07)
[2022-05-21] MEDS: Aldactone 25 MG PO SCH (10:05)
[2022-05-21] MEDS: Protonix 40MG Tablet PO SCH (10:06)
[2022-05-21] MEDS: LASIX 20 MG PO SCH (10:06)
[2022-05-21] MEDS: Lopressor 25MG Tab PO SCH ×2 (10:06→22:07)
[2022-05-21] MEDS: NORVASC 5 MG PO SCH (10:06)
[2022-05-21 10:45] LABS: Slide Review 1 YES
[2022-05-21] MEDS: THEOPHYLLINE ER 24HR PO SCH ×2 (11:24→22:07)
[2022-05-21] MEDS: PATIENT OWN MEDICATION IH SCH ×2 (13:50→19:01)
[2022-05-21] MEDS: Mirapex 0.5 MG Tablet PO SCH (22:05)
[2022-05-21] MEDS: ROCEPHIN 1 Gm-D5w 50 ml Bag** 1 G/50 ML IVPB IV SCH (22:05)
[2022-05-21] MEDS: Xalatan OP SCH (22:05)
[2022-05-21] MEDS: ZOCOR 20MG PO SCH (22:06)
[2022-05-21] MEDS: ECOTRIN 81 MG PO SCH (22:07)
[2022-05-21] MEDS: Zithromax 500 MG/ 250 ML NaCl Premix 500 MG/250 ML IVPB IV SCH (23:14)
[2022-05-22] MEDS: solu-MEDROL 60 MG, Sterile H2O 10 ml 2 ML IV SCH ×8 (00:18→17:48)
[2022-05-22] MEDS: DUONEB 0.5-3 MG/3 ml Neb IH SCH ×4 (00:26→18:10)
[2022-05-22] MEDS: PATIENT OWN MEDICATION IH SCH ×2 (05:20→21:45)
[2022-05-22 05:25] LABS: Absolute Neutrophil Ct (ANC) 12.33 x10^3/uL (1.4-6.9); Basophil (Absolute #) 0.01 x10^3/uL (0-0.4); Eosinophil (Absolute #) 0 x10^3/uL (0-0.5); Hematocrit 39.5 % (42-50); Lymphocyte (Absolute #) 0.43 x10^3/uL (1.0-4.6); Lymphocytes % 3.3 % (24.0-44.0); Mean Cell Volume 85.7 fL (78-100); Mean Corpuscular Hgb Concent. 30.4 g/dL (32-36); Mean Platelet Volume 9.4 fL (7.5-11.0); Monocytes % 1.5 % (0.0-12.0); Neutrophil % 94.3 % (36.0-66.0); Platelet Count 237 x10^3/uL (150-450); Red Blood Count 4.61 x10^6/uL (4.1-5.6); Red Cell Distribution Width 15.1 % (11.5-14.0); White Blood Count 13.1 x10^3/uL (4.0-10.5)
[2022-05-22 05:52] LABS: ANION GAP 7.2 MEQ/L (5-15); BLOOD UREA NITROGEN 15 mg/dL (9-20); CHLORIDE 99 mmol/L (98-107); Calcium 8.7 mg/dL (8.4-10.2); Carbon Dioxide 35 mmol/L (22-30); Creatinine 1 0.63 mg/dL (0.66-1.25); EST GLOMERULAR FILTRATION RATE > 60.0 ML/MIN; Glucose 133 mg/dL (74-106); Potassium 4.1 mmol/L (3.5-5.1); SODIUM 138 mmol/L (137-145)
[2022-05-22 07:26] LABS: Slide Review 1 YES
[2022-05-22] MEDS: LASIX 20 MG PO SCH (10:15)
[2022-05-22] MEDS: XANAX 1 MG PO SCH ×2 (10:15→21:07)
[2022-05-22] MEDS: Aldactone 25 MG PO SCH (10:16)
[2022-05-22] MEDS: Protonix 40MG Tablet PO SCH (10:16)
[2022-05-22] MEDS: ENTRESTO 49 MG-51 MG TABLET PO SCH ×2 (10:16→21:07)
[2022-05-22] MEDS: Lopressor 25MG Tab PO SCH ×2 (10:16→21:07)
[2022-05-22] MEDS: NORVASC 5 MG PO SCH (10:17)
[2022-05-22] MEDS: Imdur 60MG PO SCH (10:17)
--- NOTE | 2022-05-22 10:22 | PCM.NOTE ---
Date and Time: 05/22/22 1007 Subjective Assessment: Patient is sitting up in bed sleeping,awakens easily . States he did not sleep well last night. Still with conversatonal dyspnea states improved with treatment over the weekend but not at baseline. [place] typically has a COPD flare up this time of year. Objective Exam General Appearance: no apparent distress (on oximizer 6L) Neurologic Exam: alert, oriented x 3, cooperative, normal mood/affect Skin Exam: normal color, warm, dry Neck Exam: normal inspection Respiratory Exam: diminished breath sounds (no wheeze or ronchi or crackles) Cardiovascular Exam: regular rate/rhythm Gastrointestinal/Abdomen Exam: distention (mild,nontender BS present) OBJECTIVE DATA Vital Signs: Vital Signs - 24 hr Temp Pulse Resp BP Pulse Ox 05/22/22 07:59 98.1 F 90 22 135/65 95 05/22/22 05:21 93 H 24 93 L 05/22/22 04:00 98.2 F 61 22 119/56 95 05/22/22 00:30 81 24 93 L 05/21/22 23:50 98.1 F 85 22 137/76 96 05/21/22 23:45 98.0 F 110 H 19 127/58 92 L 05/21/22 19:40 98.0 F 110 H 19 127/58 92 L 05/21/22 19:04 104 H 20 96 05/21/22 16:00 97.5 F 106 H 20 146/79 92 L 05/21/22 13:52 80 24 95 05/21/22 11:27 97.7 F 76 25 H 121/68 96 Pain Assessment - Last Documented Pain Intensity 0 Intake and Output: Intake & Output 05/19/22 05/20/22 05/21/22 05/22/22 11:59 11:59 11:59 11:59 Intake Total 560 1702 2610 Output Total 1750 1575 Balance 560 -48 1035 Weight 85.8 kg 86 kg Lab Results: Lab Results-Last 24 Hours 05/21/22 05/21/22 05/21/22 Range/Units 05:02 05:30 11:35 WBC (4.0-10.5) x10^3/uL RBC (4.1-5.6) x10^6/uL Hgb (12.5-18.0) g/dL Hct (42-50) % MCV (78-100) fL MCH (26-32) pg MCHC (32-36) g/dL RDW (11.5-14.0) % Plt Count (150-450) x10^3/uL MPV (7.5-11.0) fL Gran % (36.0-66.0) % Immature Gran % (Auto) (0.00-0.4) % Nucleat RBC Rel Count (0.00-0.1) % Eos # (Auto) (0-0.5) x10^3/uL Immature Gran # (Auto) (0.00-0.03) x10^3u/L Absolute Lymphs (auto) (1.0-4.6) x10^3/uL Absolute Monos (auto) (0.0-1.3) x10^3/uL Absolute Nucleated RBC (0.00-0.01) x10^3u/L Lymphocytes % (24.0-44.0) % Monocytes % (0.0-12.0) % Eosinophils % (0.00-5.0) % Basophils % (0.0-0.4) % Absolute Granulocytes (1.4-6.9) x10^3/uL Basophils # (0-0.4) x10^3/uL Sodium (137-145) mmol/L Potassium (3.5-5.1) mmol/L Chloride (98-107) mmol/L Carbon Dioxide (22-30) mmol/L Anion Gap (5-15) MEQ/L BUN (9-20) mg/dL Creatinine (0.66-1.25) mg/dL Estimated GFR ML/MIN Glucose (74-106) mg/dL POC Glucometer 143 H (74 to 106) mg/dL Hemoglobin A1c 6.54 H (4.5-6.0) % Calcium (8.4-10.2) mg/dL Slides for Path Review YES 05/21/22 05/21/22 05/22/22 Range/Units 16:24 21:30 05:20 WBC 13.1 H (4.0-10.5) x10^3/uL RBC 4.61 (4.1-5.6) x10^6/uL Hgb 12.0 L (12.5-18.0) g/dL Hct 39.5 L (42-50) % MCV 85.7 (78-100) fL MCH 26.0 (26-32) pg MCHC 30.4 L (32-36) g/dL RDW 15.1 H (11.5-14.0) % Plt Count 237 (150-450) x10^3/uL MPV 9.4 (7.5-11.0) fL Gran % 94.3 H (36.0-66.0) % Immature Gran % (Auto) 0.8 H (0.00-0.4) % Nucleat RBC Rel Count 0.0 (0.00-0.1) % Eos # (Auto) 0 (0-0.5) x10^3/uL Immature Gran # (Auto) 0.10 H (0.00-0.03) x10^3u/L Absolute Lymphs (auto) 0.43 L (1.0-4.6) x10^3/uL Absolute Monos (auto) 0.20 (0.0-1.3) x10^3/uL Absolute Nucleated RBC 0.00 (0.00-0.01) x10^3u/L Lymphocytes % 3.3 L (24.0-44.0) % Monocytes % 1.5 (0.0-12.0) % Eosinophils % 0.0 (0.00-5.0) % Basophils % 0.1 (0.0-0.4) % Absolute Granulocytes 12.33 H (1.4-6.9) x10^3/uL Basophils # 0.01 (0-0.4) x10^3/uL Sodium (137-145) mmol/L Potassium (3.5-5.1) mmol/L Chloride (98-107) mmol/L Carbon Dioxide (22-30) mmol/L Anion Gap (5-15) MEQ/L BUN (9-20) mg/dL Creatinine (0.66-1.25) mg/dL Estimated GFR ML/MIN Glucose (74-106) mg/dL POC Glucometer 231 H 242 H (74 to 106) mg/dL Hemoglobin A1c (4.5-6.0) % Calcium (8.4-10.2) mg/dL Slides for Path Review YES 05/22/22 05/22/22 Range/Units 05:20 07:25 WBC (4.0-10.5) x10^3/uL RBC (4.1-5.6) x10^6/uL Hgb (12.5-18.0) g/dL Hct (42-50) % MCV (78-100) fL MCH (26-32) pg MCHC (32-36) g/dL RDW (11.5-14.0) % Plt Count (150-450) x10^3/uL MPV (7.5-11.0) fL Gran % (36.0-66.0) % Immature Gran % (Auto) (0.00-0.4) % Nucleat RBC Rel Count (0.00-0.1) % Eos # (Auto) (0-0.5) x10^3/uL Immature Gran # (Auto) (0.00-0.03) x10^3u/L Absolute Lymphs (auto) (1.0-4.6) x10^3/uL Absolute Monos (auto) (0.0-1.3) x10^3/uL Absolute Nucleated RBC (0.00-0.01) x10^3u/L Lymphocytes % (24.0-44.0) % Monocytes % (0.0-12.0) % Eosinophils % (0.00-5.0) % Basophils % (0.0-0.4) % Absolute Granulocytes (1.4-6.9) x10^3/uL Basophils # (0-0.4) x10^3/uL Sodium 138 (137-145) mmol/L Potassium 4.1 (3.5-5.1) mmol/L Chloride 99 (98-107) mmol/L Carbon Dioxide 35 H (22-30) mmol/L Anion Gap 7.2 (5-15) MEQ/L BUN 15 (9-20) mg/dL Creatinine 0.63 L (0.66-1.25) mg/dL Estimated GFR > 60.0 ML/MIN Glucose 133 H (74-106) mg/dL POC Glucometer 125 H (74 to 106) mg/dL Hemoglobin A1c (4.5-6.0) % Calcium 8.7 (8.4-10.2) mg/dL Slides for Path Review Multi-Disciplinary Progress Notes: Multi-Disciplinary Progress Notes 05/22/22 09:12 Case Management Note by Lida Rocha PATIENT HAS [facility]. PLEASE FAX D/C SUMMARY AND D/C MED LIST TO [phone] Initialized on 05/22/22 09:12 - END OF NOTE Assessment/Plan (1) COPD exacerbation Current Visit: Yes Status: Acute Assessment & Plan: improving but not at baseline-continue IV steroids Code(s): J44.1 - CHRONIC OBSTRUCTIVE PULMONARY DISEASE W (ACUTE) EXACERBATION (2) Pneumonia Current Visit: Yes Status: Acute Assessment & Plan: improving,continu IV Rocephin and Zithromax Code(s): J18.9 - PNEUMONIA, UNSPECIFIED ORGANISM
[2022-05-22] MEDS: THEOPHYLLINE ER 24HR PO SCH ×2 (10:37→21:09)
[2022-05-22] MEDS ORDERED: solu-MEDROL ONE (17:39)
[2022-05-22] MEDS: Artificial Tears 15 ML OP SCH ×2 (21:06→21:32)
[2022-05-22] MEDS: ECOTRIN 81 MG PO SCH (21:06)
[2022-05-22] MEDS: Mirapex 0.5 MG Tablet PO SCH (21:07)
[2022-05-22] MEDS: ZOCOR 20MG PO SCH (21:07)
[2022-05-22] MEDS: ROCEPHIN 1 Gm-D5w 50 ml Bag** 1 G/50 ML IVPB IV SCH (21:08)
[2022-05-22] MEDS: Xalatan OP SCH (21:09)
[2022-05-22] MEDS: Zithromax 500 MG/ 250 ML NaCl Premix 500 MG/250 ML IVPB IV SCH (21:41)
[2022-05-23] MEDS ORDERED: solu-MEDROL ONE ×2 (00:11→05:58)
[2022-05-23] MEDS: solu-MEDROL 60 MG, Sterile H2O 10 ml 2 ML IV SCH ×6 (00:12→12:24)
[2022-05-23] MEDS: DUONEB 0.5-3 MG/3 ml Neb IH SCH ×3 (00:34→13:11)
[2022-05-23] MEDS: PATIENT OWN MEDICATION IH SCH (06:44)
[2022-05-23 08:49] LABS: Absolute Neutrophil Ct (ANC) 9.64 x10^3/uL (1.4-6.9); Basophil (Absolute #) 0.01 x10^3/uL (0-0.4); Eosinophil (Absolute #) 0 x10^3/uL (0-0.5); Hemoglobin 12.5 g/dL (12.5-18.0); Lymphocyte (Absolute #) 0.49 x10^3/uL (1.0-4.6); Lymphocytes % 4.7 % (24.0-44.0); Mean Cell Volume 86.7 fL (78-100); Mean Corpuscular Hemoglobin 26.4 pg (26-32); Mean Corpuscular Hgb Concent. 30.5 g/dL (32-36); Mean Platelet Volume 9.3 fL (7.5-11.0); Monocyte (Absolute #) 0.29 x10^3/uL (0.0-1.3); Monocytes % 2.8 % (0.0-12.0); Neutrophil % 91.5 % (36.0-66.0); Platelet Count 209 x10^3/uL (150-450); Red Blood Count 4.73 x10^6/uL (4.1-5.6); Red Cell Distribution Width 15.1 % (11.5-14.0); White Blood Count 10.5 x10^3/uL (4.0-10.5)
[2022-05-23 09:11] LABS: ANION GAP 5.8 MEQ/L (5-15); BLOOD UREA NITROGEN 13 mg/dL (9-20); CHLORIDE 102 mmol/L (98-107); Calcium 8.7 mg/dL (8.4-10.2); Carbon Dioxide 32 mmol/L (22-30); Creatinine 1 0.49 mg/dL (0.66-1.25); EST GLOMERULAR FILTRATION RATE > 60.0 ML/MIN; Glucose 141 mg/dL (74-106); Potassium 4.2 mmol/L (3.5-5.1); SODIUM 135 mmol/L (137-145)
[2022-05-23] MEDS: XANAX 1 MG PO SCH (09:45)
[2022-05-23] MEDS: NORVASC 5 MG PO SCH (09:45)
[2022-05-23] MEDS: ENTRESTO 49 MG-51 MG TABLET PO SCH (09:45)
[2022-05-23] MEDS: Protonix 40MG Tablet PO SCH (09:45)
[2022-05-23] MEDS: Imdur 60MG PO SCH (09:45)
[2022-05-23] MEDS: Aldactone 25 MG PO SCH (09:46)
[2022-05-23] MEDS: LASIX 20 MG PO SCH (09:46)
[2022-05-23] MEDS: Lopressor 25MG Tab PO SCH (09:46)
[2022-05-23] MEDS: THEOPHYLLINE ER 24HR PO SCH (09:47)
[2022-05-23] MEDS: Artificial Tears 15 ML OP SCH ×2 (09:47→12:26)
[2022-05-23 11:01] LABS: Slide Review 1 YES
--- NOTE | 2022-05-23 15:37 | PCM.DCORD ---
- Discharge Disposition: HOME HEALTH SERVICE Condition: Stable Prescriptions: New Prednisone 10 mg [Deltasone 10 mg] 10 mg PO TID #30 tablet Azithromycin [Zithromax Tri-Joseph] 500 mg PO DAILY #3 tablet Continue Omeprazole 20 MG [Prilosec 20 mg] 20 mg PO BIDAC Albuterol 2.5 mg/3 ml Neb [Proventil 2.5 mg/3 ml Neb] 1 neb IH Q6H PRN PRN Reason: sob Aspirin 81 mg PO HS Nitroglycerin 0.4 mg Tablet [Nitrostat 0.4 MG Tablet] 0.4 mg SL Q5MIN PRN MR X 3 PRN PRN Reason: Chest Pain ALPRAZolam 1 MG [Xanax 1 mg] 1 mg PO BID Isosorbide Mononitrate 60 mg [Imdur 60MG] 60 mg PO DAILY Metoprolol Tartrate 25 mg [Lopressor 25MG Tab] 25 mg PO BID Rosuvastatin Calcium 20 mg PO HS Spironolactone 25 mg [Aldactone 25 MG] 12.5 mg PO DAILY Budesonide/Glycopyr/Formoterol [Breztri Aerosphere Inhaler] 2 puffs IH BID Albuterol Sulfate [Proair Digihaler] 2 puffs IH Q6H PRN PRN Reason: sob Pramipexole Di-HCl [Mirapex] 0.25 mg PO HS Sacubitril/Valsartan [Entresto 97 mg-103 mg Tablet] 2 each PO DAILY Furosemide 20 mg [Lasix 20 mg] 20 mg PO DAILY Amlodipine Besylate 2.5 mg PO DAILY Propylene Glycol/Peg 400 [Lubricating Eye Drop] 15 ml OP QID Latanoprost [Xalatan] 1 ml OP HS Carboxymethylcellulose Sodium [Refresh Liquigel] 1 ml OP HS Theophylline Anhydrous [Theophylline ER 24Hr] 400 mg PO BID #60 Prednisone 20 mg [Deltasone 20 mg] 5 mg PO DAILY Additional Instructions: Keep appt with DR Moreno ,[employer] Follow up with: DAV SEALS, [Primary Care Provider] -
[2022-05-23 16:20] VITALS: BP 105/71; PULSE 101; O2SAT 93
--- NOTE | 2022-06-01 20:38 | PCM.DS ---
Discharge Summary Date of Admission: 05/19/22 22:37 Date of Discharge: 05/23/22 late entry Admitting Physician: DIANELYS KING Primary Care Provider: DAV SEALS DO Allergies Allergies nicotine [From [facility]] Allergy (Severe, Verified 05/19/22 19:45) [facility] Hospital Summary - Hospital Course Hospital Course: Nas is a 76 yr old gentleman with chronic respiratory failure who failed outpatient treatment for COPD exacerbation .Upon presentation to ER ,O2 sat was 77% on 4L O2. 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 Patient was treated with IV Zithromax ,Rocephin and solumedrol and had a slow recovery back to baseline. He will be discharged home to the care of his family and Home health. - Vitals & Intake/Output Vital Signs: Vital Signs Temperature 98.0 F 05/23/22 16:00 Pulse Rate 101 H 05/23/22 16:00 Respiratory Rate 16 05/23/22 16:00 Blood Pressure 105/71 05/23/22 16:00 O2 Sat by Pulse Oximetry 93 L 05/23/22 16:00 - Lab Result Diagrams: 05/23/22 08:43 05/23/22 08:43 Micro Results-Entire Visit: Microbiology 05/19/22 19:50 Blood Culture Gram Stain - Final Blood Not Reportable Blood Culture - Final NO GROWTH 05/19/22 19:45 Blood Culture Gram Stain - Final Blood Not Reportable Blood Culture - Final NO GROWTH - Procedures and Test Procedures and Tests throughout Hospitalization: Therapy Orders & Screens 05/19/22 20:06 Respiratory Therapy Assessment DAILY Comment: 05/19/22 22:40 Oxygen Nasal Cannula 5 lpm Comment: 05/20/22 01:35 Respiratory MDI BID Comment: Diagnosis: Acute on chronic hypoxic respiratory failure 05/20/22 01:37 BiPap/CPAP ROUTINE Comment: Diagnosis: Acute on chronic hypoxic respiratory failure 05/20/22 10:00 ST Screen per Nursing Assess ONCE Comment: Protocol Order Physician Instructions: Greater than [address] Admission Screening Reason For Exam: Triggered on Admission Diagnosis: Acute on chronic hypoxic respiratory failure CVA/Dyshpagia/Aphasia: No Cognitive Deficits: No Dehydration/Nutrition Deficit: No Reflux: Yes Oral-Motor Difficulties: No Pneumonia: Yes Group Home Resident: No Total Points: 8 05/21/22 19:00 Respiratory MDI Q12H Comment: Advair 115/21 2 puffs BID Diagnosis: Acute on chronic hypoxic respiratory failure Discharge Exam General Appearance: no apparent distress Neurologic Exam: alert, oriented x 3, cooperative, normal mood/affect Eye Exam: eyes nml inspection Ears, Nose, Throat Exam: normal ENT inspection Neck Exam: normal inspection Respiratory Exam: diminished breath sounds (no wheeze or ronchi or rales) Cardiovascular Exam: regular rate/rhythm Extremity Exam: other (no edema) Skin Exam: normal color, warm, dry Final Diagnosis/Problem List - Final Discharge Diagnosis/Problem (1) COPD exacerbation Status: Chronic Code(s): J44.1 - CHRONIC OBSTRUCTIVE PULMONARY DISEASE W (ACUTE) EXACERBATION (2) Pneumonia Status: Suspected Code(s): J18.9 - PNEUMONIA, UNSPECIFIED ORGANISM (3) DM2 (diabetes mellitus, type 2) Status: Chronic Assessment & Plan: controlled - Discharge Disposition: HOME HEALTH SERVICE Condition: Stable Prescriptions: New Prednisone 10 mg [Deltasone 10 mg] 10 mg PO TID #30 tablet Azithromycin [Zithromax Tri-Joseph] 500 mg PO DAILY #3 tablet Continue Omeprazole 20 MG [Prilosec 20 mg] 20 mg PO BIDAC Albuterol 2.5 mg/3 ml Neb [Proventil 2.5 mg/3 ml Neb] 1 neb IH Q6H PRN PRN Reason: sob Aspirin 81 mg PO HS Nitroglycerin 0.4 mg Tablet [Nitrostat 0.4 MG Tablet] 0.4 mg SL Q5MIN PRN MR X 3 PRN PRN Reason: Chest Pain ALPRAZolam 1 MG [Xanax 1 mg] 1 mg PO BID Isosorbide Mononitrate 60 mg [Imdur 60MG] 60 mg PO DAILY Metoprolol Tartrate 25 mg [Lopressor 25MG Tab] 25 mg PO BID Rosuvastatin Calcium 20 mg PO HS Spironolactone 25 mg [Aldactone 25 MG] 12.5 mg PO DAILY Budesonide/Glycopyr/Formoterol [Breztri Aerosphere Inhaler] 2 puffs IH BID Albuterol Sulfate [Proair Digihaler] 2 puffs IH Q6H PRN PRN Reason: sob Pramipexole Di-HCl [Mirapex] 0.25 mg PO HS Sacubitril/Valsartan [Entresto 97 mg-103 mg Tablet] 2 each PO DAILY Furosemide 20 mg [Lasix 20 mg] 20 mg PO DAILY Amlodipine Besylate 2.5 mg PO DAILY Propylene Glycol/Peg 400 [Lubricating Eye Drop] 15 ml OP QID Latanoprost [Xalatan] 1 ml OP HS Carboxymethylcellulose Sodium [Refresh Liquigel] 1 ml OP HS Theophylline Anhydrous [Theophylline ER 24Hr] 400 mg PO BID #60 Prednisone 20 mg [Deltasone 20 mg] 5 mg PO DAILY Instructions: Exacerbation of COPD (DC) Additional Instructions: Keep appt with DR Moreno ,[employer] Administrator Follow up with: DAV SEALS DO [Primary Care Provider] - 06/02/22 9:00 am
== END 2022-05-23 16:22 | disposition home health service (06) ==
LOC: ED 19:26 → MED SURG 22:37
PROVIDERS: ADMIT Family Medicine; ATTEND Family Medicine
DX: J44.1 Chronic obstructive pulmonary disease with (acute) exacerbation (principal); J18.9 Pneumonia, unspecified organism; J96.01 Acute respiratory failure with hypoxia; E11.9 Type 2 diabetes mellitus without complications; I11.0 Hypertensive heart disease with heart failure; I50.9 Heart failure, unspecified; Z79.899 Other long term (current) drug therapy; Z20.828 Contact with and (suspected) exposure to other viral communicable diseases; Z99.81 Dependence on supplemental oxygen; Z85.828 Personal history of other malignant neoplasm of skin
CPT/HCPCS: 0241U; 36000; 36415; 36600; 71045; 80048; 80053; 80198; 81015; 82375; 82803; 82947; 83036; 83605; 83735; 83880; 84145; 84484; 85025; 87040; 93005; 93041; 93268; 94002; 94003; 94640; 94760; 94762; 96365; 96367; 99284; G0008; G0378; 90662; J0456; J0696; J1817; J2930; A9270-GY

== ENCOUNTER 2022-06-24 13:45 | Emergency (ER) | payer MEDICARE ==
--- NOTE | 2022-06-24 14:24 | ERPHSYRPT ---
- History of Present Illness Time Seen by Provider: 06/24/22 13:51 Source: patient Exam Limitations: no limitations Patient Subjective Stated Complaint: Pt noticed approx 1 hour ago that his right elbow and the area around it is red and swollen and has some pain Triage Nursing Assessment: Pt brought to the ER by his daughter, hypertensive, rates pain in his elbow as 2/10, wears 4L NC at all times, denies injury to his right elbow, the elbow is warm/red/swollen and the area around it, pt denies having gout or arthritis, no other complaints at this time Physician History: 76-year-old male with history of chronic respiratory failure secondary to COPD on 4 L oxygen, hypertension, hyperlipidemia presented in the ER with chief complaint of right elbow pain and swelling noticed almost an hour prior to arrival. Patient reports no fall or known trauma to the elbow. Since he noticed the swelling is improving on its own. No limitation range of motion but has some dull aching soreness. No fever or chills reported. Occurred: this morning, hours ago (1) Method of Injury: unknown Quality: aching Severity of Pain-Max: moderate Severity of Pain-Current: mild Extremities Pain Location: elbow: right Modifying Factors: Improves With: immobilization. Worsens With: movement Associated Symptoms: short of breath, No fever All[facility]ies/Adverse [facility]actions[facility] Allergy (Severe, Verified 06/24/22 14:02) Rash Home Medications: Albuterol 2.5 mg/3 ml Neb [Proventil 2.5 mg/3 ml Neb] 1 neb IH Q6H PRN 02/04/14 [History] Aspirin 81 mg PO HS 02/04/14 [History] Omeprazole 20 MG [Prilosec 20 mg] 20 mg PO BIDAC 02/04/14 [History] Nitroglycerin 0.4 mg Tablet [Nitrostat 0.4 MG Tablet] 0.4 mg SL Q5MIN PRN MR X 3 PRN 08/01/16 [History] ALPRAZolam 1 MG [Xanax 1 mg] 1 mg PO BID 10/14/18 [History] Isosorbide Mononitrate 60 mg [Imdur 60MG] 60 mg PO DAILY 06/01/20 [History] Metoprolol Tartrate 25 mg [Lopressor 25MG Tab] 25 mg PO BID 06/01/20 [History] Rosuvastatin Calcium 20 mg PO HS 06/01/20 [History] Spironolactone 25 mg [Aldactone 25 MG] 12.5 mg PO DAILY 01/25/21 [History] Albuterol Sulfate [Proair Digihaler] 2 puffs IH Q6H PRN 03/24/21 [History] Budesonide/Glycopyr/Formoterol [Breztri Aerosphere Inhaler] 2 puffs IH BID 03/24/21 [History] Amlodipine Besylate 2.5 mg PO DAILY 06/12/21 [History] Furosemide 20 mg [Lasix 20 mg] 20 mg PO DAILY 06/12/21 [History] Pramipexole Di-HCl [Mirapex] 0.25 mg PO HS 06/12/21 [History] Sacubitril/Valsartan [Entresto 97 mg-103 mg Tablet] 2 each PO DAILY 06/12/21 [History] Carboxymethylcellulose Sodium [Refresh Liquigel] 1 ml OP HS 09/25/21 [History] Latanoprost [Xalatan] 1 ml OP HS 09/25/21 [History] Propylene Glycol/Peg 400 [Lubricating Eye Drop] 15 ml OP QID 09/25/21 [History] Prednisone 20 mg [Deltasone 20 mg] 5 mg PO DAILY 05/19/22 [History] Hx Tetanus, Diphtheria Vaccination/Date Given: No Hx Influenza Vaccination/Date Given: Yes Hx Pneumococcal Vaccination/Date Given: Yes Travel Risk - International Travel Have you traveled outside of the country in past 3 weeks: No - Coronavirus Screening Are you exhibiting any of the following symptoms?: No - Vaccine Status Have you recieved a Covid-19 vaccination: No - Review of Systems Constitutional: No Symptoms Eyes: No Symptoms Ears, Nose, & Throat: No Symptoms Respiratory: Dyspnea Cardiac: No Symptoms Abdominal/Gastrointestinal: No Symptoms Genitourinary Symptoms: No Symptoms Musculoskeletal: Joint Redness, Joint Pain Skin: Cellulitis Neurological: No Symptoms Psychological: No Symptoms Hematologic/Lymphatic: No Symptoms Immunological/Allergic: No Symptoms - Past Medical History Pertinent Past Medical History: Yes Neurological History: No Pertinent History ENT History: No Pertinent History Cardiac History: Aneurysm, Congestive Heart Failure, Hypertension Respiratory History: COPD, Sleep Apnea, Other Endocrine Medical History: Diabetes Type II Musculoskeletal History: No Pertinent History GI Medical History: No Pertinent History, GERD History: No Pertinent History Psycho-Social History: Anxiety Male Reproductive Disorders: No Pertinent History Other Medical History: 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 PT wears 4L O2 AT ALL TIMES - Past Surgical History Past Surgical History: Yes Neuro Surgical History: No Pertinent History Cardiac: No Pertinent History Respiratory: Other Gastrointestinal: Hernia Repair Genitourinary: No Pertinent History Musculoskeletal: Orthopedic Surgery Male Surgical History: Vasectomy Other Surgical History: BACK SURGERY, and ear surgery and a left lung biopsy. 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, double hernia repair, - Social History Smoking Status: Former smoker How long have you smoked: 13 Exposure to second hand smoke: No Drug Use: none Patient Lives Alone: No Significant Family History: no pertinent family hx - Nursing Vital Signs Nursing Vital Signs: Initial Vital Signs Temperature 98.5 F 06/24/22 13:54 Pulse Rate 98 H 06/24/22 13:54 Blood Pressure 141/82 06/24/22 13:54 O2 Sat by Pulse Oximetry 96 06/24/22 13:54 Pain Scale Pain Intensity 2 - Physical Exam General Appearance: no apparent distress, alert Eyes, Ears, Nose, Throat Exam: normal ENT inspection Neck Exam: normal inspection, supple, full range of motion Cardiovascular/Respiratory Exam: chest non-tender, regular rate/rhythm, rhonchi Shoulder Exam: normal inspection, non-tender, no evidence of injury, normal ROM Elbow/Forearm Exam: normal ROM, pain, soft tissue tenderness (Right elbow swelling with mild increased temperature. Minimal tenderness. No bony tenderness.), swelling Wrist Exam: normal inspection, non-tender, no evidence of injury, normal ROM Hand Exam: normal inspection, non-tender Neuro/Tendon Exam: normal sensation, normal motor functions, normal tendon functions Mental Status Exam: alert, oriented x 3, cooperative Skin Exam: normal color SpO2 Interpretation: O2 applied SpO2: 96 O2 Delivery: Nasal Cannula (4 L) Ordered Tests: Active Orders 24 hr Category Date Time Status ELBOW (MINIMUM 3 VIEWS) Stat Exams 06/24/22 14:22 Completed BLOOD CULTURE Stat Lab 06/24/22 14:51 Received CBC W DIFF Stat Lab 06/24/22 14:30 Completed CMP Stat Lab 06/24/22 14:30 Completed Lactic Acid Stat Lab 06/24/22 14:30 Completed PROCALCITONIN Stat Lab 06/24/22 14:30 Completed Uric Acid Stat Lab 06/24/22 14:39 Completed Medication Summary Discontinued Medications Generic Name Dose Route Start Last Admin Trade Name Simón PRN Reason Stop Dose Admin Triamcinolone Acetonide 60 mg 06/24/22 16:24 06/24/22 16:32 Triamcinolone Acetonide 40 Mg/Ml Ml IM 06/24/22 16:25 60 mg 1XONLY ONE Administration Triamcinolone Acetonide Confirm 06/24/22 16:31 Triamcinolone Acetonide 40 Mg/Ml Ml Administered 06/24/22 16:32 Dose 80 mg .ROUTE .STK-MED ONE Lab/Rad Data: Laboratory Result Diagrams 06/24/22 14:30 06/24/22 14:30 Laboratory Results 06/24/22 06/24/22 06/24/22 Range/Units 14:39 14:30 14:30 WBC (4.0-10.5) x10^3/uL RBC (4.1-5.6) x10^6/uL Hgb (12.5-18.0) g/dL Hct (42-50) % MCV (78-100) fL MCH (26-32) pg MCHC (32-36) g/dL RDW (11.5-14.0) % Plt Count (150-450) x10^3/uL MPV (7.5-11.0) fL Gran % (36.0-66.0) % Immature Gran % (Auto) (0.00-0.4) % Nucleat RBC Rel Count (0.00-0.1) % Eos # (Auto) (0-0.5) x10^3/uL Immature Gran # (Auto) (0.00-0.03) x10^3u/L Absolute Lymphs (auto) (1.0-4.6) x10^3/uL Absolute Monos (auto) (0.0-1.3) x10^3/uL Absolute Nucleated RBC (0.00-0.01) x10^3u/L Lymphocytes % (24.0-44.0) % Monocytes % (0.0-12.0) % Eosinophils % (0.00-5.0) % Basophils % (0.0-0.4) % Absolute Granulocytes (1.4-6.9) x10^3/uL Basophils # (0-0.4) x10^3/uL Sodium 137 (137-145) mmol/L Potassium 3.9 (3.5-5.1) mmol/L Chloride 102 (98-107) mmol/L Carbon Dioxide 29 (22-30) mmol/L Anion Gap 9.6 (5-15) MEQ/L BUN 10 (9-20) mg/dL Creatinine 0.71 (0.66-1.25) mg/dL Estimated GFR > 60.0 ML/MIN Glucose 137 H (74-106) mg/dL Lactic Acid (0.4-2.0) Uric Acid 3.9 (3.5-7.2) mg/dL Calcium 8.8 (8.4-10.2) mg/dL Total Bilirubin 0.90 (0.2-1.3) mg/dL AST 19 (17-59) U/L ALT 17 (0-50) U/L Alkaline Phosphatase 49 (38-126) U/L Serum Total Protein 6.7 (6.3-8.2) g/dL Albumin 4.0 (3.5-5.0) g/dL Procalcitonin 0.050 (0.030-0.080) ng/mL 06/24/22 06/24/22 Range/Units 14:30 14:30 WBC 7.1 (4.0-10.5) x10^3/uL RBC 4.73 (4.1-5.6) x10^6/uL Hgb 12.8 (12.5-18.0) g/dL Hct 41.7 L (42-50) % MCV 88.2 (78-100) fL MCH 27.1 (26-32) pg MCHC 30.7 L (32-36) g/dL RDW 16.4 H (11.5-14.0) % Plt Count 265 (150-450) x10^3/uL MPV 9.4 (7.5-11.0) fL Gran % 68.3 H (36.0-66.0) % Immature Gran % (Auto) 1.4 H (0.00-0.4) % Nucleat RBC Rel Count 0.0 (0.00-0.1) % Eos # (Auto) 0.16 (0-0.5) x10^3/uL Immature Gran # (Auto) 0.10 H (0.00-0.03) x10^3u/L Absolute Lymphs (auto) 1.34 (1.0-4.6) x10^3/uL Absolute Monos (auto) 0.62 (0.0-1.3) x10^3/uL Absolute Nucleated RBC 0.00 (0.00-0.01) x10^3u/L Lymphocytes % 18.8 L (24.0-44.0) % Monocytes % 8.7 (0.0-12.0) % Eosinophils % 2.2 (0.00-5.0) % Basophils % 0.6 (0.0-0.4) % Absolute Granulocytes 4.86 (1.4-6.9) x10^3/uL Basophils # 0.04 (0-0.4) x10^3/uL Sodium (137-145) mmol/L Potassium (3.5-5.1) mmol/L Chloride (98-107) mmol/L Carbon Dioxide (22-30) mmol/L Anion Gap (5-15) MEQ/L BUN (9-20) mg/dL Creatinine (0.66-1.25) mg/dL Estimated GFR ML/MIN Glucose (74-106) mg/dL Lactic Acid 1.0 (0.4-2.0) Uric Acid (3.5-7.2) mg/dL Calcium (8.4-10.2) mg/dL Total Bilirubin (0.2-1.3) mg/dL AST (17-59) U/L ALT (0-50) U/L Alkaline Phosphatase (38-126) U/L Serum Total Protein (6.3-8.2) g/dL Albumin (3.5-5.0) g/dL Procalcitonin (0.030-0.080) ng/mL - Progress Progress: improved, re-examined Progress Note: 06/24/22 16:26 76-year-old is evaluated for right elbow swelling without any trauma. Swelling is improving already. Patient does not have any bony tenderness and x-rays reviewed by me negative for any acute fracture, does have some soft tissue swelling. Has normal white count, grossly unremarkable chemistries. Normal lactate and procalcitonin. Blood cultures are obtained. Given steroid shot, I believe patient has olecranon bursitis, recommended Saud wrap, sling, avoid exertional activity and Tylenol as needed for pain. Recommended outpatient follow-up with Ortho. 06/24/22 16:29 Counseled pt/family regarding: lab results, diagnosis, need for follow-up, rad gurinder esults - Departure Departure Disposition: Home Clinical Impression: Olecranon bursitis of right elbow Condition: Stable Critical Care Time: No Referrals: DAV SEALS DO [Primary Care Provider] - Follow up/PCP as directed (In 2 days for review) ORTHO - ASHKAN [employer]IVERA [employer]OGRAPHICAL ENGINEER [NON-STAFF PHY W/O PRIVILEGES] - Follow up/PCP as directed (In 2 days for reevaluation) Instructions: Olecranon Bursitis (DC) Additional Instructions: Take Tylenol as needed. Intermittent ice application. Avoid exertional act ivities. Follow-up with orthopedic surgery for reevaluation. Return to ER immediately if having increasing pain swelling redness, fever chills or difficulty movements.
[2022-06-24 14:40] LABS: Absolute Neutrophil Ct (ANC) 4.86 x10^3/uL (1.4-6.9); Basophil (Absolute #) 0.04 x10^3/uL (0-0.4); Eosinophil % 2.2 % (0.00-5.0); Eosinophil (Absolute #) 0.16 x10^3/uL (0-0.5); Hematocrit 41.7 % (42-50); Hemoglobin 12.8 g/dL (12.5-18.0); Lymphocyte (Absolute #) 1.34 x10^3/uL (1.0-4.6); Lymphocytes % 18.8 % (24.0-44.0); Mean Cell Volume 88.2 fL (78-100); Mean Corpuscular Hemoglobin 27.1 pg (26-32); Mean Corpuscular Hgb Concent. 30.7 g/dL (32-36); Mean Platelet Volume 9.4 fL (7.5-11.0); Monocyte (Absolute #) 0.62 x10^3/uL (0.0-1.3); Monocytes % 8.7 % (0.0-12.0); Neutrophil % 68.3 % (36.0-66.0); Platelet Count 265 x10^3/uL (150-450); Red Blood Count 4.73 x10^6/uL (4.1-5.6); Red Cell Distribution Width 16.4 % (11.5-14.0); White Blood Count 7.1 x10^3/uL (4.0-10.5)
[2022-06-24 14:53] LABS: ALKALINE PHOSPHATASE 49 U/L (38-126); ANION GAP 9.6 MEQ/L (5-15); BLOOD UREA NITROGEN 10 mg/dL (9-20); CHLORIDE 102 mmol/L (98-107); Calcium 8.8 mg/dL (8.4-10.2); Carbon Dioxide 29 mmol/L (22-30); Creatinine 1 0.71 mg/dL (0.66-1.25); EST GLOMERULAR FILTRATION RATE > 60.0 ML/MIN; Glucose 137 mg/dL (74-106); Potassium 3.9 mmol/L (3.5-5.1); SGOT/AST 19 U/L (17-59); SGPT/ALT 17 U/L (0-50); SODIUM 137 mmol/L (137-145); Total Protein 6.7 g/dL (6.3-8.2)
[2022-06-24] MEDS ORDERED: Kenalog-40 IM ONE (16:24)
[2022-06-24 16:26] VITALS: BP 106/63; PULSE 80
[2022-06-24 16:30] VITALS: O2SAT 96
[2022-06-24] MEDS ORDERED: Kenalog-40 ONE (16:31)
--- NOTE | 2022-06-24 18:00 | XRAY ---
Indication: Swelling. No known injury. Comparison: None 3 view right elbow demonstrates posterior soft tissue swelling/bursitis and tiny spurring medial epicondyle/olecranon process. No other bony, articular, or soft tissue abnormalities.
== END 2022-06-24 16:53 | disposition home or self-care (01) ==
LOC: ED 13:45
DX: M70.21 Olecranon bursitis, right elbow (principal); M25.521 Pain in right elbow; E78.5 Hyperlipidemia, unspecified; I11.0 Hypertensive heart disease with heart failure; E11.9 Type 2 diabetes mellitus without complications; Z79.899 Other long term (current) drug therapy; Z79.52 Long term (current) use of systemic steroids; Z28.310 Unvaccinated for COVID-19
CPT/HCPCS: 36415; 73080; 80053; 83605; 84145; 84550; 85025; 87040; 96372; 99283; J3301

== ENCOUNTER 2022-08-29 12:03 | Emergency (ER) | payer MEDICARE ==
--- NOTE | 2022-08-29 12:11 | ERPHSYRPT ---
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 Patient denies chest pain. He denies abdominal pain. He has had no fevers. He has no nausea vomiting or diarrhea. Patient also has a history of hypertension, CHF, coronary disease and hyperlipidemia as well as diabetes. Patient has known thoracic and intra-abdominal aneurysms. 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 Moreno and manager delivery Dr. Booth. Additional history was obtained from the patient's old records. Timing/Duration: today Activities at Onset: activity Severity of Dyspnea-Max: moderate Severity of Dyspnea-Current: moderate Possible Cause: frequent episodes, chronic episodes Modifying Factors: Improves With: activity, albuterol nebulizer Associated Symptoms: anxiety, wheezing, No chest pain/discomfort Allergies/Adverse Reactions: nicotine [From [employer] ] Allergy (Severe, Verified 06/24/22 14:02) Rash Home Medications: Albuterol 2.5 mg/3 ml Neb [Proventil 2.5 mg/3 ml Neb] 1 neb IH Q6H PRN 02/04/14 [History] Aspirin 81 mg PO HS 02/04/14 [History] Omeprazole 20 MG [Prilosec 20 mg] 20 mg PO BIDAC 02/04/14 [History] Nitroglycerin 0.4 mg Tablet [Nitrostat 0.4 MG Tablet] 0.4 mg SL Q5MIN PRN MR X 3 PRN 08/01/16 [History] ALPRAZolam 1 MG [Xanax 1 mg] 1 mg PO BID 10/14/18 [History] Isosorbide Mononitrate 60 mg [Imdur 60MG] 60 mg PO DAILY 06/01/20 [History] Metoprolol Tartrate 25 mg [Lopressor 25MG Tab] 25 mg PO BID 06/01/20 [History] Rosuvastatin Calcium 20 mg PO HS 06/01/20 [History] Spironolactone 25 mg [Aldactone 25 MG] 12.5 mg PO DAILY 01/25/21 [History] Albuterol Sulfate [Proair Digihaler] 2 puffs IH Q6H PRN 03/24/21 [History] Budesonide/Glycopyr/Formoterol [Breztri Aerosphere Inhaler] 2 puffs IH BID 03/24/21 [History] Amlodipine Besylate 2.5 mg PO DAILY 06/12/21 [History] Furosemide 20 mg [Lasix 20 mg] 20 mg PO DAILY 06/12/21 [History] Pramipexole Di-HCl [Mirapex] 0.25 mg PO HS 06/12/21 [History] Sacubitril/Valsartan [Entresto 97 mg-103 mg Tablet] 2 each PO DAILY 06/12/21 [History] Carboxymethylcellulose Sodium [Refresh Liquigel] 1 ml OP HS 09/25/21 [History] Latanoprost [Xalatan] 1 ml OP HS 09/25/21 [History] Propylene Glycol/Peg 400 [Lubricating Eye Drop] 15 ml OP QID 09/25/21 [History] Prednisone 20 mg [Deltasone 20 mg] 5 mg PO DAILY 05/19/22 [History] Hx Tetanus, Diphtheria Vaccination/Date Given: No Hx Influenza Vaccination/Date Given: Yes Hx Pneumococcal Vaccination/Date Given: Yes Travel Risk - International Travel Have you traveled outside of the country in past 3 weeks: No - Coronavirus Screening Are you exhibiting any of the following symptoms?: Yes Symptoms: Shortness of Breath Close contact with a COVID-19 positive Pt in past 14-21 Days: No - Vaccine Status Have you recieved a Covid-19 vaccination: No - Review of Systems Constitutional: No Symptoms Eyes: No Symptoms Ears, Nose, & Throat: No Symptoms Respiratory: Dyspnea, Wheezing Cardiac: No Symptoms Abdominal/Gastrointestinal: No Symptoms Genitourinary Symptoms: No Symptoms Musculoskeletal: No Symptoms Skin: No Symptoms Neurological: No Symptoms Psychological: No Symptoms Endocrine: No Symptoms Hematologic/Lymphatic: No Symptoms Immunological/Allergic: No Symptoms All Other Systems: Reviewed and Negative - Past Medical History Pertinent Past Medical History: Yes Neurological History: No Pertinent History ENT History: No Pertinent History Cardiac History: Aneurysm, Congestive Heart Failure, Hypertension Respiratory History: COPD, Sleep Apnea, Other Endocrine Medical History: Diabetes Type II Musculoskeletal History: No Pertinent History GI Medical History: No Pertinent History, GERD History: No Pertinent History Psycho-Social History: Anxiety Male Reproductive Disorders: No Pertinent History Other Medical History: 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 PT wears 4L O2 AT ALL TIMES - Past Surgical History Past Surgical History: Yes Neuro Surgical History: No Pertinent History Cardiac: No Pertinent History Respiratory: Other Gastrointestinal: Hernia Repair Genitourinary: No Pertinent History Musculoskeletal: Orthopedic Surgery Male Surgical History: Vasectomy Other Surgical History: BACK SURGERY, and ear surgery and a left lung biopsy. 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, double hernia repair, - Social History Smoking Status: Former smoker How long have you smoked: 13 Exposure to second hand smoke: No Drug Use: none Patient Lives Alone: No Significant Family History: no pertinent family hx - Nursing Vital Signs Nursing Vital Signs: Initial Vital Signs Temperature 98.9 F 08/29/22 12:06 Pulse Rate 98 H 08/29/22 12:06 Respiratory Rate 28 H 08/29/22 12:06 Blood Pressure 119/71 08/29/22 12:06 O2 Sat by Pulse Oximetry 98 08/29/22 12:06 Pain Scale Pain Intensity 0 - Physical Exam General Appearance: mild distress, alert, anxiety Eye Exam: PERRL/EOMI, eyes nml inspection Ears, Nose, Throat Exam: hearing grossly normal, normal ENT inspection, normal pharynx Neck Exam: normal inspection, non-tender, supple, full range of motion Respiratory Exam: normal breath sounds, lungs clear, airway intact, No chest tenderness, No respiratory distress Cardiovascular/Chest Exam: normal heart sounds, regular rate/rhythm Abdominal/Gastrointestinal Exam: soft, normal bowel sounds, No tenderness Rectal Exam: not done Extremity Exam: non-tender, normal range of motion, normal inspection, normal capillary refill, no calf tenderness, no pedal edema, pelvis stable Neurologic Exam: alert, oriented x 3, cooperative, operations supervisor chemical cleaning II-XII nml as tested, normal mood/affect, nml cerebellar function, nml station & gait, sensation nml Skin Exam: normal color, warm, dry Lymphatic Exam: No adenopathy SpO2 Interpretation: normal O2 Delivery: Room Air - Course Nursing assessment & vital signs reviewed: Yes EKG Interpreted by Me: RATE (97), Sinus Rhythm, NORMAL AXIS, NORMAL INTERVALS, Right Bundle Branch Block, NORMAL ST-T, Other (No acute ischemic changes on today's twelve-lead EKG. This EKG was interpreted by me) Ordered Tests: Active Orders 24 hr Category Date Time Status EKG-ER Only STAT Care 08/29/22 12:27 Active IV Insertion STAT Care 08/29/22 12:27 Active Pulse Oximetry (ED) STAT Care 08/29/22 12:27 Active CHEST 1 VIEW (PORTABLE) Stat Exams 08/29/22 12:28 Completed CHEST WITH CONTRAST [CT] Stat Exams 08/29/22 13:51 Completed BLOOD CULTURE Stat Lab 08/29/22 12:46 Received CBC W DIFF Stat Lab 08/29/22 12:15 Completed CMP Stat Lab 08/29/22 12:15 Completed CULTURE,SPUTUM Stat Lab 08/29/22 12:40 Ordered D-DIMER QUANTITATIVE Stat Lab 08/29/22 12:15 Completed Lactic Acid Stat Lab 08/29/22 12:25 Completed NT PRO BNP Stat Lab 08/29/22 12:15 Completed TROPONIN Q4H Lab 08/29/22 12:15 Completed TROPONIN Q4H Lab 08/29/22 16:30 Ordered TROPONIN Q4H Lab 08/29/22 20:30 Ordered Medication Summary Discontinued Medications Generic Name Dose Route Start Last Admin Trade Name Freq PRN Reason Stop Dose Admin Albuterol Sulfate Confirm 08/29/22 12:21 Albuterol Sulfate 2.5 Mg/3 Ml Neb Administered 08/29/22 12:22 Dose 2.5 mg IH .STK-MED ONE Albuterol Sulfate 2.5 mg 08/29/22 12:24 08/29/22 12:25 Albuterol Sulfate 2.5 Mg/3 Ml Neb IH 08/29/22 12:25 2.5 mg STAT ONE Administration Methylprednisolone Sodium 0 mg 08/29/22 12:27 08/29/22 12:32 Succinate 125 mg/ Sterile IV 08/29/22 12:28 125 mg Water 2 ml STAT ONE Administration Sodium Chloride 500 mls @ 500 mls/hr 08/29/22 14:10 08/29/22 15:21 Sodium Chloride 0.9% 500 Ml IV 08/29/22 15:09 Infused .Q1H ONE Infusion Sodium Chloride Confirm 08/29/22 14:12 Sodium Chloride 0.9% 500 Ml Administered 08/29/22 14:13 Dose 500 mls @ ud IV .STK-MED ONE Methylprednisolone Sodium Succinate Confirm 08/29/22 12:31 Methylprednis Sod Succ 125 Mg/2 Ml Vial Administered 08/29/22 12:32 Dose 125 mg .ROUTE .STK-MED ONE Sterile Water Confirm 08/29/22 12:31 Water For Injection,Sterile 10 Ml Vial Administered 08/29/22 12:32 Dose 10 ml IJ .STK-MED ONE Lab/Rad Data: Laboratory Result Diagrams 08/29/22 12:15 08/29/22 12:15 Laboratory Results 08/29/22 08/29/22 08/29/22 Range/Units 12:40 12:25 12:15 WBC (4.0-10.5) x10^3/uL RBC (4.1-5.6) x10^6/uL Hgb (12.5-18.0) g/dL Hct (42-50) % MCV (78-100) fL MCH (26-32) pg MCHC (32-36) g/dL RDW (11.5-14.0) % Plt Count (150-450) x10^3/uL MPV (7.5-11.0) fL Gran % (36.0-66.0) % Immature Gran % (Auto) (0.00-0.4) % Nucleat RBC Rel Count (0.00-0.1) % Eos # (Auto) (0-0.5) x10^3/uL Immature Gran # (Auto) (0.00-0.03) x10^3u/L Absolute Lymphs (auto) (1.0-4.6) x10^3/uL Absolute Monos (auto) (0.0-1.3) x10^3/uL Absolute Nucleated RBC (0.00-0.01) x10^3u/L Lymphocytes % (24.0-44.0) % Monocytes % (0.0-12.0) % Eosinophils % (0.00-5.0) % Basophils % (0.0-0.4) % Absolute Granulocytes (1.4-6.9) x10^3/uL Basophils # (0-0.4) x10^3/uL D-Dimer (0.0-0.50) mg/L Sodium (137-145) mmol/L Potassium (3.5-5.1) mmol/L Chloride (98-107) mmol/L Carbon Dioxide (22-30) mmol/L Anion Gap (5-15) MEQ/L BUN (9-20) mg/dL Creatinine (0.66-1.25) mg/dL Estimated GFR ML/MIN Glucose (74-106) mg/dL Lactic Acid 1.1 (0.4-2.0) Calcium (8.4-10.2) mg/dL Total Bilirubin (0.2-1.3) mg/dL AST (17-59) U/L ALT (0-50) U/L Alkaline Phosphatase (38-126) U/L Troponin I < 0.012 (0.000-0.034) ng/mL NT-Pro-B Natriuret Pep (0-1800) pg/mL Serum Total Protein (6.3-8.2) g/dL Albumin (3.5-5.0) g/dL Influenza Type A Ag NEGATIVE (NEGATIVE) Influenza Type B Ag NEGATIVE (NEGATIVE) RSV (PCR) NEGATIVE (Negative) SARS-CoV-2 (PCR) NEGATIVE (NEGATIVE) 08/29/22 08/29/22 08/29/22 Range/Units 12:15 12:15 12:15 WBC 13.6 H (4.0-10.5) x10^3/uL RBC 4.58 (4.1-5.6) x10^6/uL Hgb 12.6 (12.5-18.0) g/dL Hct 39.7 L (42-50) % MCV 86.7 (78-100) fL MCH 27.5 (26-32) pg MCHC 31.7 L (32-36) g/dL RDW 15.2 H (11.5-14.0) % Plt Count 223 (150-450) x10^3/uL MPV 9.7 (7.5-11.0) fL Gran % 80.4 H (36.0-66.0) % Immature Gran % (Auto) 0.5 H (0.00-0.4) % Nucleat RBC Rel Count 0.0 (0.00-0.1) % Eos # (Auto) 0.03 (0-0.5) x10^3/uL Immature Gran # (Auto) 0.07 H (0.00-0.03) x10^3u/L Absolute Lymphs (auto) 1.34 (1.0-4.6) x10^3/uL Absolute Monos (auto) 1.21 (0.0-1.3) x10^3/uL Absolute Nucleated RBC 0.00 (0.00-0.01) x10^3u/L Lymphocytes % 9.8 L (24.0-44.0) % Monocytes % 8.9 (0.0-12.0) % Eosinophils % 0.2 (0.00-5.0) % Basophils % 0.2 (0.0-0.4) % Absolute Granulocytes 10.96 H (1.4-6.9) x10^3/uL Basophils # 0.03 (0-0.4) x10^3/uL D-Dimer 1.37 H* (0.0-0.50) mg/L Sodium 135 L (137-145) mmol/L Potassium 4.2 (3.5-5.1) mmol/L Chloride 100 (98-107) mmol/L Carbon Dioxide 31 H (22-30) mmol/L Anion Gap 8.1 (5-15) MEQ/L BUN 12 (9-20) mg/dL Creatinine 0.54 L (0.66-1.25) mg/dL Estimated GFR > 60.0 ML/MIN Glucose 91 (74-106) mg/dL Lactic Acid (0.4-2.0) Calcium 9.1 (8.4-10.2) mg/dL Total Bilirubin 1.50 H (0.2-1.3) mg/dL AST 30 (17-59) U/L ALT 19 (0-50) U/L Alkaline Phosphatase 43 (38-126) U/L Troponin I (0.000-0.034) ng/mL NT-Pro-B Natriuret Pep 289 (0-1800) pg/mL Serum Total Protein 7.2 (6.3-8.2) g/dL Albumin 4.2 (3.5-5.0) g/dL Influenza Type A Ag (NEGATIVE) Influenza Type B Ag (NEGATIVE) RSV (PCR) (Negative) SARS-CoV-2 (PCR) (NEGATIVE) - Progress Progress: improved, re-examined Air Movement: fair Progress Note: 08/29/22 13:00 Chest x-ray shows new hazy bibasilar interstitial alveolar opacities without consolidation or large effusion. I reviewed the report provided by the radiol ogist. 08/29/22 16:43 CTA of the chest shows no pulmonary embolus and no evidence of any acute cardi opulmonary process. No evidence of pneumonia on the CT a of the chest. Medical decision making: This patient has medical issue of moderate complexity. Patient has multiple medical problems that are of at least moderate complexity. Today, the patient had increasing shortness of breath despite his current medication list at home. I reviewed this medication list. I reviewed the patient's allergies as well. I reviewed the old records from this hospital regarding this patient's list of medical problems. Based on the patient history, review of old hospital records, patient complaint and symptoms as well as physical findings, I ordered lab work, twelve-lead EKG, chest x-ray. I reviewed the results of the studies and compared them to prior lab, EKG and chest x-ray results. A CTA of the chest was performed because of elevated D- dimer. There was no evidence of any pulmonary embolus or acute cardiopulmonary process. However, the patient has multiple medical problems of the lung and he art and I spoke with his primary care physician, Dr. Dixon. I reviewed the above complaint, physical exam results, and the results of labs, EKG and chest x-ray as well as CTA of the chest. Patient likely has exacerbation of his COPD. In addition he has leukocytosis. This could be an early pulmonary source of infection or possibly side effect of chronic prednisone use. Because of his symptoms of worsening shortness of breath, Dr. Dixon and I feel that the patient would benefit from an intravenous dose of antibiotics followed by outpatient antibiotics and prednisone taper. Based on the above I formulated the plan with Dr. Dixon for outpatient management. I discussed this in det ail with the patient. Blood Culture(s) Obtained: Yes Antibiotics given: Yes Counseled pt/family regarding: lab results, diagnosis, need for follow-up, rad results - Departure Departure Disposition: Home Clinical Impression: Upper respiratory infection, COPD exacerbation Condition: Stable Critical Care Time: No Referrals: DAV BOWEN, DO [Primary Care Provider] - Follow up/PCP as directed Instructions: Chronic Obstructive Pulmonary Disease Additional Instructions: Take your medications as prescribed. Pay attention to the new prednisone dosing schedule and tapering dosing. Follow-up with Dr. Bowen in her office by ph one tomorrow to make arrangements for follow-up appointment and further management Prescriptions: Prednisone 5 mg [Deltasone 5 mg] See Rx Instructions .ROUTE .COMPLEX #20 tablet Azithromycin 250 mg [Zithromax 250 MG TABLET] 250 mg PO ZPACK #6 tablet
[2022-08-29] MEDS ORDERED: PROVENTIL 2.5 MG/3 ML NEB IH ONE ×2 (12:21→12:24)
[2022-08-29] MEDS ORDERED: solu-MEDROL 125 MG, Sterile H2O 10 ml 2 ML IV ONE ×2 (12:27)
[2022-08-29] MEDS ORDERED: Sterile H2O 10 ml IJ ONE (12:31)
[2022-08-29] MEDS ORDERED: solu-MEDROL ONE (12:31)
--- NOTE | 2022-08-29 12:47 | XRAY ---
Indication: Short of breath. Comparison: August 13, 2022 Portable chest again demonstrates COPD and left lung suture material. New hazy bibasilar interstitial alveolar opacities without consolidation/large effusion. Heart not enlarged.
[2022-08-29 13:00] LABS: Absolute Neutrophil Ct (ANC) 10.96 x10^3/uL (1.4-6.9); BASOPHIL % 0.2 % (0.0-0.4); Basophil (Absolute #) 0.03 x10^3/uL (0-0.4); Eosinophil % 0.2 % (0.00-5.0); Eosinophil (Absolute #) 0.03 x10^3/uL (0-0.5); Hematocrit 39.7 % (42-50); Hemoglobin 12.6 g/dL (12.5-18.0); IMMATURE GRAN # 0.07 x10^3u/L (0.00-0.03); IMMATURE GRAN % 0.5 % (0.00-0.4); Lymphocyte (Absolute #) 1.34 x10^3/uL (1.0-4.6); Lymphocytes % 9.8 % (24.0-44.0); Mean Cell Volume 86.7 fL (78-100); Mean Corpuscular Hemoglobin 27.5 pg (26-32); Mean Corpuscular Hgb Concent. 31.7 g/dL (32-36); Mean Platelet Volume 9.7 fL (7.5-11.0); Monocyte (Absolute #) 1.21 x10^3/uL (0.0-1.3); Monocytes % 8.9 % (0.0-12.0); Neutrophil % 80.4 % (36.0-66.0); Platelet Count 223 x10^3/uL (150-450); Red Blood Count 4.58 x10^6/uL (4.1-5.6); Red Cell Distribution Width 15.2 % (11.5-14.0); White Blood Count 13.6 x10^3/uL (4.0-10.5)
[2022-08-29 13:18] LABS: ALBUMIN 4.2 g/dL (3.5-5.0); ALKALINE PHOSPHATASE 43 U/L (38-126); ANION GAP 8.1 MEQ/L (5-15); BLOOD UREA NITROGEN 12 mg/dL (9-20); CHLORIDE 100 mmol/L (98-107); Calcium 9.1 mg/dL (8.4-10.2); Carbon Dioxide 31 mmol/L (22-30); Creatinine 1 0.54 mg/dL (0.66-1.25); EST GLOMERULAR FILTRATION RATE > 60.0 ML/MIN; Glucose 91 mg/dL (74-106); NT PRO BNP 289 pg/mL (0-1800); Potassium 4.2 mmol/L (3.5-5.1); SGOT/AST 30 U/L (17-59); SGPT/ALT 19 U/L (0-50); SODIUM 135 mmol/L (137-145); Total Protein 7.2 g/dL (6.3-8.2)
[2022-08-29 13:30] LABS: INFLUENZA A NEGATIVE (NEGATIVE); INFLUENZA B NEGATIVE (NEGATIVE); RESPIRATORY SYNCTIAL VIRUS NEGATIVE (Negative); SARS-CoV-2 Xpert Express NEGATIVE (NEGATIVE)
[2022-08-29] MEDS ORDERED: Sodium Chloride 0.9% 500 ML 500 ML IV ONE ×2 (14:10→14:12)
[2022-08-29 16:19] VITALS: O2SAT 97
--- NOTE | 2022-08-29 16:27 | XRAY ---
Indication: Short of breath. Elevated d-dimer. Pulmonary embolus. Multiple contiguous axial images obtained through the chest using 80 cc Isovue-370 contrast and PE protocol. Comparison: August 30, 2021 Good opacification of the pulmonary arteries to include the lobar and segmental branches. Study slightly degraded by respiration artifact. No obvious pulmonary embolus. Heart not enlarged. Aorta again mildly arteriosclerotic without aneurysm/dissection. No pathologic mediastinal/hilar lymphadenopathy. Lungs again demonstrates diffuse centrilobular pulmonary emphysema with scattered fibrosis/scarring and left upper lung suture material. No suspicious pulmonary mass, infiltrate, or effusion. Bony thorax intact. Limited upper abdomen including adrenal glands are unremarkable. Impression: 1. Minimal respiration artifact. No obvious pulmonary embolus. 2. Again chronic findings including pulmonary emphysema, scattered fibrosis/scarring, and left lung postsurgical changes. 3. No new or acute cardiopulmonary abnormalities.
[2022-08-29] MEDS ORDERED: ROCEPHIN 1 Gm-D5w 50 ml Bag** 1 G/50 ML IVPB IV STA (16:49)
[2022-08-29] MEDS ORDERED: ROCEPHIN 1 Gm-D5w 50 ml Bag** 1 G/50 ML IVPB IV ONE (17:32)
[2022-08-29 18:26] VITALS: BP 114/66; PULSE 88
== END 2022-08-29 18:26 | disposition home or self-care (01) ==
LOC: ED 12:03
DX: J06.9 Acute upper respiratory infection, unspecified (principal); J44.1 Chronic obstructive pulmonary disease with (acute) exacerbation; R06.02 Shortness of breath; I11.0 Hypertensive heart disease with heart failure; E78.5 Hyperlipidemia, unspecified; E11.9 Type 2 diabetes mellitus without complications; Z79.52 Long term (current) use of systemic steroids; Z79.899 Other long term (current) drug therapy; Z99.81 Dependence on supplemental oxygen; Z28.310 Unvaccinated for COVID-19; Z20.828 Contact with and (suspected) exposure to other viral communicable diseases
CPT/HCPCS: 0241U; 36000; 36415; 71045; 71260; 80053; 83605; 83880; 84484; 85025; 85379; 87040; 87070; 87077; 87186; 93005; 94640; 94760; 96360; 96365; 96374; 99284; J0696; J2930; J7609; A9270-GY

== ENCOUNTER 2022-12-16 08:17 | Observation (INO) | payer MEDICARE ==
[2022-12-16] MEDS ORDERED: solu-MEDROL 125 MG, Sterile H2O 10 ml 2 ML IV ONE ×2 (08:36)
[2022-12-16] MEDS ORDERED: DUONEB 0.5-3 MG/3 ml Neb IH ONE ×3 (08:36→14:04)
[2022-12-16] MEDS ORDERED: SOLU MEDROL IV STA ×2 (08:42)
[2022-12-16] MEDS ORDERED: STERILE H2O IV STA ×2 (08:42)
--- NOTE | 2022-12-16 08:43 | ERPHSYRPT ---
- History of Present Illness Time Seen by Provider: 12/16/22 08:36 Source: patient Exam Limitations: no limitations Patient Subjective Stated Complaint: PT states "I have been short of breath for about three weeks and have been on antibiotics but I am done with those and It has gotten allot worse." Triage Nursing Assessment: Pt presented alert and oriented X 3, skin pwd. pt head bobbing and tripod position tachypneic. PT on 5 lpm O2 suppimental O2 via nc. PT voice is raspy and in three to four word sentences. Physician History: 77 years old male with history of hypertension, hyperlipidemia, GERD, COPD with chronic respiratory failure on 4 L oxygen presented in the ER with chief complaint of worsening cough and congestion for the last few days. Patient has been dealing with cough congestion for almost 3 weeks and has taken antibiotics in the past with improvement in symptoms but getting worse for the last 3 days again. Cough productive of yellow-green sputum moderate in amount and despite being on 4 L oxygen gets short of breath. Has increased his oxygen to 5 L with no significant improvement in work of breathing. No fever or chills reported. No chest tightness or pressure reported. Timing/Duration: day(s) (32), gradual onset, worse Activities at Onset: rest Severity of Dyspnea-Max: severe Severity of Dyspnea-Current: severe Possible Cause: frequent episodes Modifying Factors: Improves With: rest. Worsens With: coughing, exertion Associated Symptoms: cough, wheezing, productive cough, tightness Allergies/Adverse Reactions: nicotine [From Nicoderm CQ] Allergy (Severe, Verified 06/24/22 14:02) Rash Home Medications: Albuterol 2.5 mg/3 ml Neb [Proventil 2.5 mg/3 ml Neb] 1 neb IH Q6H PRN 02/04/14 [History] Aspirin 81 mg PO HS 02/04/14 [History] Omeprazole 20 MG [Prilosec 20 mg] 20 mg PO BIDAC 02/04/14 [History] Nitroglycerin 0.4 mg Tablet [Nitrostat 0.4 MG Tablet] 0.4 mg SL Q5MIN PRN MR X 3 PRN 08/01/16 [History] ALPRAZolam 1 MG [Xanax 1 mg] 1 mg PO BID 10/14/18 [History] Isosorbide Mononitrate 60 mg [Imdur 60MG] 60 mg PO DAILY 06/01/20 [History] Metoprolol Tartrate 25 mg [Lopressor 25MG Tab] 25 mg PO BID 06/01/20 [History] Rosuvastatin Calcium 20 mg PO HS 06/01/20 [History] Spironolactone 25 mg [Aldactone 25 MG] 12.5 mg PO DAILY 01/25/21 [History] Albuterol Sulfate [Proair Digihaler] 2 puffs IH Q6H PRN 03/24/21 [History] Budesonide/Glycopyr/Formoterol [Breztri Aerosphere Inhaler] 2 puffs IH BID 03/24/21 [History] Amlodipine Besylate 2.5 mg PO DAILY 06/12/21 [History] Furosemide 20 mg [Lasix 20 mg] 20 mg PO DAILY 06/12/21 [History] Pramipexole Di-HCl [Mirapex] 0.25 mg PO HS 06/12/21 [History] Sacubitril/Valsartan [Entresto 97 mg-103 mg Tablet] 2 each PO DAILY 06/12/21 [History] Carboxymethylcellulose Sodium [Refresh Liquigel] 1 ml OP HS 09/25/21 [History] Latanoprost [Xalatan] 1 ml OP HS 09/25/21 [History] Propylene Glycol/Peg 400 [Lubricating Eye Drop] 15 ml OP QID 09/25/21 [History] Prednisone 20 mg [Deltasone 20 mg] 5 mg PO DAILY 05/19/22 [History] Hx Tetanus, Diphtheria Vaccination/Date Given: No Hx Influenza Vaccination/Date Given: Yes Hx Pneumococcal Vaccination/Date Given: Yes Immunizations Up to Date: Yes Travel Risk - International Travel Have you traveled outside of the country in past 3 weeks: No - Coronavirus Screening Are you exhibiting any of the following symptoms?: No - Vaccine Status Have you recieved a Covid-19 vaccination: No - Review of Systems Constitutional: Fatigue, Weakness Ears, Nose, & Throat: No Symptoms Respiratory: Cough, Dyspnea, Dyspnea on Exertion (GUERRA), Wheezing Cardiac: No Symptoms Abdominal/Gastrointestinal: No Symptoms Genitourinary Symptoms: No Symptoms Musculoskeletal: Arthralgias Skin: No Symptoms Psychological: No Symptoms Endocrine: No Symptoms Hematologic/Lymphatic: No Symptoms - Past Medical History Pertinent Past Medical History: Yes Neurological History: No Pertinent History ENT History: No Pertinent History Cardiac History: Aneurysm, Congestive Heart Failure, Hypertension Respiratory History: COPD, Sleep Apnea, Other Endocrine Medical History: Diabetes Type II Musculoskeletal History: No Pertinent History GI Medical History: No Pertinent History, GERD History: No Pertinent History Psycho-Social History: Anxiety Male Reproductive Disorders: No Pertinent History Other Medical History: 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 PT wears 4L O2 AT ALL TIMES - Past Surgical History Past Surgical History: Yes Neuro Surgical History: No Pertinent History Cardiac: No Pertinent History Respiratory: Other Gastrointestinal: Hernia Repair Genitourinary: No Pertinent History Musculoskeletal: Orthopedic Surgery Male Surgical History: Vasectomy Other Surgical History: BACK SURGERY, and ear surgery and a left lung biopsy. 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, double hernia repair, - Social History Smoking Status: Former smoker How long have you smoked: 13 Exposure to second hand smoke: No Drug Use: none Patient Lives Alone: No Significant Family History: no pertinent family hx - Nursing Vital Signs Nursing Vital Signs: Initial Vital Signs Temperature 98.9 F 12/16/22 08:18 Pulse Rate 137 H 12/16/22 08:18 Respiratory Rate 32 H 12/16/22 08:18 Blood Pressure 149/86 12/16/22 08:18 O2 Sat by Pulse Oximetry 89 L 12/16/22 08:18 Pain Scale Pain Intensity 0 - Physical Exam General Appearance: mild distress, alert Eye Exam: PERRL/EOMI Ears, Nose, Throat Exam: hearing grossly normal, normal ENT inspection, normal pharynx Neck Exam: normal inspection, non-tender, supple, full range of motion Respiratory Exam: respiratory distress, diminished breath sounds, accessory muscle use, rhonchi, wheezing Cardiovascular/Chest Exam: normal heart sounds, tachycardia Abdominal/Gastrointestinal Exam: soft, normal bowel sounds Extremity Exam: non-tender Neurologic Exam: alert, oriented x 3, cooperative Skin Exam: normal color SpO2 Interpretation: normal SpO2: 91 O2 Delivery: Room Air - Course EKG Interpreted by Me: RATE (122), Sinus Tach, Right [employer] Deviation, NORMAL INTERVALS, Right Bundle Branch Block, Non-specific ST Changes, Other (PVC) Ordered Tests: Active Orders 24 hr Category Date Time Status Demand Equipment Repairer STAT Care 12/16/22 08:37 Active EKG-ER Only STAT Care 12/16/22 08:36 Active IV Insertion STAT Care 12/16/22 08:36 Active Oxygen-ED Only Nasal Cannula 5 lpm Care 12/16/22 08:36 Active CHEST 1 VIEW (PORTABLE) Stat Exams 12/16/22 08:37 Taken BLOOD CULTURE Stat Lab 12/16/22 09:10 Received CBC W DIFF Stat Lab 12/16/22 09:00 Completed CMP Stat Lab 12/16/22 09:00 Completed Lactic Acid Stat Lab 12/16/22 08:53 Completed MAGNESIUM Stat Lab 12/16/22 09:00 Completed NT PRO BNPII Stat Lab 12/16/22 09:00 Completed TROPONIN Q4H Lab 12/16/22 09:00 Completed TROPONIN Q4H Lab 12/16/22 12:45 Ordered TROPONIN Q4H Lab 12/16/22 16:45 Ordered Transfer Order Routine Transfer 12/16/22 Ordered Medication Summary Discontinued Medications Generic Name Dose Route Start Last Admin Trade Name Freq PRN Reason Stop Dose Admin Albuterol/Ipratropium 3 ml 12/16/22 08:36 12/16/22 08:49 Ipratropium/Albuterol Sulfate 3 Ml Ampul.Neb IH 12/16/22 08:37 3 ml STAT ONE Administration Albuterol/Ipratropium Confirm 12/16/22 08:45 Ipratropium/Albuterol Sulfate 3 Ml Ampul.Neb Administered 12/16/22 08:46 Dose 3 ml IH .STK-MED ONE Methylprednisolone Sodium 0 mg 12/16/22 08:36 12/16/22 08:44 Succinate 125 mg/ Sterile IV 12/16/22 08:37 1 mg Water 2 ml STAT ONE Administration Methylprednisolone Sodium 0 mg 12/16/22 08:42 12/16/22 08:49 Succinate 120 mg/ Sterile IV 12/16/22 08:43 120 mg Water 3 ml STAT STA Administration Ceftriaxone Sodium/Dextrose 2 g in 50 mls @ 100 mls/hr 12/16/22 08:52 12/16/22 09:46 Rocephin 2 Gm-D5w 50ml Bag IV 12/16/22 09:21 Infused STAT STA Infusion Azithromycin 500 mg in 250 mls @ 250 mls/hr 12/16/22 08:52 12/16/22 10:57 Zithromax 500 Mg/ 250 Ml Nacl Premix IV 12/16/22 09:51 Infused STAT STA Infusion Ceftriaxone Sodium/Dextrose Confirm 12/16/22 09:12 Rocephin 2 Gm-D5w 50ml Bag Administered 12/16/22 09:13 Dose 2 g in 50 mls @ ud IV .STK-MED ONE Azithromycin Confirm 12/16/22 09:48 Zithromax 500 Mg/ 250 Ml Nacl Premix Administered 12/16/22 09:49 Dose 500 mg in 250 mls @ ud IV .STK-MED ONE Methylprednisolone Sodium Succinate Confirm 12/16/22 08:46 Methylprednisolone Sod Suc 40m 40 Mg/Ml Vial Administered 12/16/22 08:47 Dose 40 mg .ROUTE .STK-MED ONE Methylprednisolone Sodium Succinate Confirm 12/16/22 08:47 Methylprednisolone Sod Suc 40m 40 Mg/Ml Vial Administered 12/16/22 08:48 Dose 40 mg .ROUTE .STK-MED ONE Methylprednisolone Sodium Succinate Confirm 12/16/22 08:47 Methylprednisolone Sod Suc 40m 40 Mg/Ml Vial Administered 12/16/22 08:48 Dose 40 mg .ROUTE .STK-MED ONE Sterile Water Confirm 12/16/22 08:46 Water For Injection,Sterile 10 Ml Vial Administered 12/16/22 08:47 Dose 10 ml IJ .STK-MED ONE Sterile Water Confirm 12/16/22 08:47 Water For Injection,Sterile 10 Ml Vial Administered 12/16/22 08:48 Dose 10 ml IJ .STK-MED ONE Sterile Water Confirm 12/16/22 08:47 Water For Injection,Sterile 10 Ml Vial Administered 12/16/22 08:48 Dose 10 ml IJ .STK-MED ONE Lab/Rad Data: Laboratory Result Diagrams 12/16/22 09:00 12/16/22 09:00 Laboratory Results 12/16/22 12/16/22 12/16/22 Range/Units 09:00 09:00 09:00 WBC 14.9 H (4.0-10.5) x10^3/uL RBC 4.83 (4.1-5.6) x10^6/uL Hgb 13.0 (12.5-18.0) g/dL Hct 42.3 (42-50) % MCV 87.6 (78-100) fL MCH 26.9 (26-32) pg MCHC 30.7 L (32-36) g/dL RDW 16.1 H (11.5-14.0) % Plt Count 220 (150-450) x10^3/uL MPV 9.8 (7.5-11.0) fL Gran % 82.5 H (36.0-66.0) % Immature Gran % (Auto) 0.6 H (0.00-0.4) % Nucleat RBC Rel Count 0.0 (0.00-0.1) % Eos # (Auto) 0.05 (0-0.5) x10^3/uL Immature Gran # (Auto) 0.09 H (0.00-0.03) x10^3u/L Absolute Lymphs (auto) 1.30 (1.0-4.6) x10^3/uL Absolute Monos (auto) 1.14 (0.0-1.3) x10^3/uL Absolute Nucleated RBC 0.00 (0.00-0.01) x10^3u/L Lymphocytes % 8.7 L (24.0-44.0) % Monocytes % 7.6 (0.0-12.0) % Eosinophils % 0.3 (0.00-5.0) % Basophils % 0.3 (0.0-0.4) % Absolute Granulocytes 12.32 H (1.4-6.9) x10^3/uL Basophils # 0.04 (0-0.4) x10^3/uL Sodium 139 (137-145) mmol/L Potassium 4.2 (3.5-5.1) mmol/L Chloride 100 (98-107) mmol/L Carbon Dioxide 29 (22-30) mmol/L Anion Gap 14.3 (5-15) MEQ/L BUN 10 (9-20) mg/dL Creatinine 0.61 L (0.66-1.25) mg/dL Estimated GFR > 60.0 ML/MIN Glucose 116 H (74-106) mg/dL Lactic Acid (0.4-2.0) Calcium 9.0 (8.4-10.2) mg/dL Magnesium 2.0 (1.6-2.3) mg/dL Total Bilirubin 1.60 H (0.2-1.3) mg/dL AST 27 (17-59) U/L ALT 25 (0-50) U/L Alkaline Phosphatase 53 (38-126) U/L Troponin I < 0.012 (0.000-0.034) ng/mL NT-Pro-B Natriuret Pep 318 (<300) pg/mL Serum Total Protein 7.4 (6.3-8.2) g/dL Albumin 4.3 (3.5-5.0) g/dL 12/16/22 Range/Units 08:53 WBC (4.0-10.5) x10^3/uL RBC (4.1-5.6) x10^6/uL Hgb (12.5-18.0) g/dL Hct (42-50) % MCV (78-100) fL MCH (26-32) pg MCHC (32-36) g/dL RDW (11.5-14.0) % Plt Count (150-450) x10^3/uL MPV (7.5-11.0) fL Gran % (36.0-66.0) % Immature Gran % (Auto) (0.00-0.4) % Nucleat RBC Rel Count (0.00-0.1) % Eos # (Auto) (0-0.5) x10^3/uL Immature Gran # (Auto) (0.00-0.03) x10^3u/L Absolute Lymphs (auto) (1.0-4.6) x10^3/uL Absolute Monos (auto) (0.0-1.3) x10^3/uL Absolute Nucleated RBC (0.00-0.01) x10^3u/L Lymphocytes % (24.0-44.0) % Monocytes % (0.0-12.0) % Eosinophils % (0.00-5.0) % Basophils % (0.0-0.4) % Absolute Granulocytes (1.4-6.9) x10^3/uL Basophils # (0-0.4) x10^3/uL Sodium (137-145) mmol/L Potassium (3.5-5.1) mmol/L Chloride (98-107) mmol/L Carbon Dioxide (22-30) mmol/L Anion Gap (5-15) MEQ/L BUN (9-20) mg/dL Creatinine (0.66-1.25) mg/dL Estimated GFR ML/MIN Glucose (74-106) mg/dL Lactic Acid 1.1 (0.4-2.0) Calcium (8.4-10.2) mg/dL Magnesium (1.6-2.3) mg/dL Total Bilirubin (0.2-1.3) mg/dL AST (17-59) U/L ALT (0-50) U/L Alkaline Phosphatase (38-126) U/L Troponin I (0.000-0.034) ng/mL NT-Pro-B Natriuret Pep (<300) pg/mL Serum Total Protein (6.3-8.2) g/dL Albumin (3.5-5.0) g/dL - Progress Progress: improved, re-examined Air Movement: fair Progress Note: 12/16/22 11:51 77 years old male with multiple medical problems including hypertension, hyp erlipidemia, GERD, chronic respiratory failure secondary to COPD on 4 L oxygen with chronic dyspnea presented with worsening shortness of breath and cough productive of yellow-green sputum for the last few days and getting hypoxic despite increasing his oxygen to 5 L. Denies any chest pain/pressure/tightness. Differentials include but not limited to pneumonia, pneumothorax, COPD exacerbation/bronchitis, COVID-19, coronary artery disease, less likely PE based on presentation. Patient oxygen dropped to 89% on presentation at resting, placed on 5 L oxygen mask, given DuoNeb and Solu-Medrol, on reevaluation feeling much better. Patient has not much air movements on exam and chest x-ray did not show any focal consolidation but old changes reviewed by me, official report is pending. Has a white count of almost 15, stable renal functions, normal lactate. Blood cultures are obtained and I believe patient has COPD exacerbation and given a dose of antibiotics Rocephin/Zithromax. Discussed with hospitalist , reviewed history, work-up, agreed with admission. I have discussed lab work, x- rays, current management and plan of admission with patient and family in detail who understand and agree with it. 6 Blood Culture(s) Obtained: Yes Antibiotics given: Yes Discussed with .: Edwin Will see patient in: hospital (observation) Counseled pt/family regarding: lab results, diagnosis, need for follow-up, rad results Medical Desision Making - Independent Historian Additional History obtained from: Relative/friend - Discussion of managment Care discussed with:: on-call "doc" () Reviewed:: Test results Agreed on:: Treatment plan, place in obs Will see patient: in hospital - Diagnostic Testing Diagnostic test were ordered, analyzed, and reviewed by me: Yes Radiological Interpretation: Interpreted by me, Reviewed by me - Risk of complications The pt has a high risk of morbidity or mortality based on: Decision regarding hospitilization or escalation of hosp level of care - Departure Departure Disposition: Observation Clinical Impression: COPD exacerbation, Chronic hypoxemic respiratory failure Condition: Stable Critical Care Time: No Referrals: DAV SEALS DO [Primary Care Provider] - Follow up/PCP as directed Instructions: Chronic Obstructive Pulmonary Disease
[2022-12-16] MEDS ORDERED: solu-MEDROL ONE ×3 (08:46→08:47)
[2022-12-16] MEDS ORDERED: Sterile H2O 10 ml IJ ONE ×3 (08:46→08:47)
[2022-12-16] MEDS ORDERED: ROCEPHIN 2 Gm-D5w 50ML BAG** 2 G/50 ML IVPB IV STA (08:52)
[2022-12-16] MEDS ORDERED: Zithromax 500 MG/ 250 ML NaCl Premix 500 MG/250 ML IVPB IV STA (08:52)
[2022-12-16 09:12] LABS: Absolute Neutrophil Ct (ANC) 12.32 x10^3/uL (1.4-6.9); BASOPHIL % 0.3 % (0.0-0.4); Basophil (Absolute #) 0.04 x10^3/uL (0-0.4); Eosinophil % 0.3 % (0.00-5.0); Eosinophil (Absolute #) 0.05 x10^3/uL (0-0.5); Hematocrit 42.3 % (42-50); IMMATURE GRAN # 0.09 x10^3u/L (0.00-0.03); IMMATURE GRAN % 0.6 % (0.00-0.4); Lymphocytes % 8.7 % (24.0-44.0); Mean Cell Volume 87.6 fL (78-100); Mean Corpuscular Hemoglobin 26.9 pg (26-32); Mean Corpuscular Hgb Concent. 30.7 g/dL (32-36); Mean Platelet Volume 9.8 fL (7.5-11.0); Monocyte (Absolute #) 1.14 x10^3/uL (0.0-1.3); Monocytes % 7.6 % (0.0-12.0); Neutrophil % 82.5 % (36.0-66.0); Platelet Count 220 x10^3/uL (150-450); Red Blood Count 4.83 x10^6/uL (4.1-5.6); Red Cell Distribution Width 16.1 % (11.5-14.0); White Blood Count 14.9 x10^3/uL (4.0-10.5)
[2022-12-16] MEDS ORDERED: ROCEPHIN 2 Gm-D5w 50ML BAG** 2 G/50 ML IVPB IV ONE (09:12)
[2022-12-16 09:31] LABS: ALBUMIN 4.3 g/dL (3.5-5.0); ALKALINE PHOSPHATASE 53 U/L (38-126); ANION GAP 14.3 MEQ/L (5-15); BLOOD UREA NITROGEN 10 mg/dL (9-20); CHLORIDE 100 mmol/L (98-107); Carbon Dioxide 29 mmol/L (22-30); Creatinine 1 0.61 mg/dL (0.66-1.25); EST GLOMERULAR FILTRATION RATE > 60.0 ML/MIN; Glucose 116 mg/dL (74-106); Potassium 4.2 mmol/L (3.5-5.1); SGOT/AST 27 U/L (17-59); SGPT/ALT 25 U/L (0-50); SODIUM 139 mmol/L (137-145); Total Protein 7.4 g/dL (6.3-8.2)
[2022-12-16 09:42] LABS: NT PRO BNPII 318 pg/mL (<300); TROPONIN < 0.012 ng/mL (0.000-0.034)
[2022-12-16] MEDS ORDERED: Zithromax 500 MG/ 250 ML NaCl Premix 500 MG/250 ML IVPB IV ONE (09:48)
[2022-12-16 12:45] LABS: INFLUENZA A NEGATIVE (NEGATIVE); INFLUENZA B NEGATIVE (NEGATIVE); RESPIRATORY SYNCTIAL VIRUS NEGATIVE (NEGATIVE); SARS-CoV-2 Xpert Express NEGATIVE (NEGATIVE)
[2022-12-16 13:26] LABS: Appearance Clear (Clear); Bacteria None Seen /HPF (None Seen); Bilirubin Negative (Negative); Blood Negative (Negative); Epithelial Cells None Seen /HPF (None Seen); Glucose, Urine Negative (Negative); Hyaline Casts NONE SEEN /LPF (0-2); Ketones 40 (Negative); Leukocyte Esterase Negative (Negative); Nitrite Negative (Negative); Protein,Urine Dip 30 (Negative); RBC 0-2 /HPF (0-5); WBC 0-2 /HPF (0-5)
[2022-12-16 13:27] LABS: ADD URINE CULTURE? NO (NO)
[2022-12-16] MEDS ORDERED: Zofran 4 MG/2 ML VIAL IV PRN (13:27)
[2022-12-16] MEDS ORDERED: MORPHINE SULFATE 2 MG INJ IV PRN (13:27)
[2022-12-16] MEDS: DUONEB 0.5-3 MG/3 ml Neb IH SCH ×3 (14:09→23:50)
[2022-12-16] MEDS ORDERED: Nitrostat 0.4 MG Tablet SL PRN (14:28)
[2022-12-16] MEDS ORDERED: PROVENTIL 2.5 MG/3 ML NEB IH PRN (14:28)
[2022-12-16] MEDS ORDERED: NON-FORMULARY ITEM (Albuterol Sulfate [Proair Digihaler] 90 MCG Aer.Pw.Bas) IH PRN (14:28)
[2022-12-16] MEDS ORDERED: VENTOLIN COMMON CANISTER IH PRN (14:46)
[2022-12-16] MEDS ORDERED: MEDICATION INTERVENTION MC SCH ×3 (15:00)
[2022-12-16] MEDS: Aldactone 25 MG PO SCH (16:05)
[2022-12-16] MEDS: Imdur 60MG PO SCH (16:05)
[2022-12-16] MEDS: Protonix 40MG Tablet PO SCH (16:06)
[2022-12-16] MEDS: DELTASONE 5 MG PO SCH (16:06)
[2022-12-16] MEDS: NORVASC 5 MG PO SCH (16:06)
[2022-12-16] MEDS: LASIX 20 MG PO SCH (16:06)
[2022-12-16] MEDS ORDERED: NON-FORMULARY ITEM (Omeprazole 20 Mg [Prilosec 20 Mg] 20 MG Capsule.Dr) PO SCH (16:30)
[2022-12-16] MEDS ORDERED: PEG OP SCH (17:00)
[2022-12-16] MEDS ORDERED: PROPYLENE GLYCOL OP SCH (17:00)
[2022-12-16] MEDS: Advair Hfa 115/21 Common canister IH SCH (20:01)
--- NOTE | 2022-12-16 20:29 | XRAY ---
Indication: Short of breath. Comparison: October 14, 2022 Portable chest unchanged again demonstrating COPD, CIPD, and left midlung suture material. Heart not enlarged. Bony thorax intact again with osteopenia and degenerative changes. No new/acute findings.
[2022-12-16] MEDS: ECOTRIN 81 MG PO SCH (21:57)
[2022-12-16] MEDS: Zocor 10MG PO SCH (21:57)
[2022-12-16] MEDS: Mirapex 0.5 MG Tablet PO SCH (21:58)
[2022-12-16] MEDS ORDERED: NON-FORMULARY ITEM (Aspirin [Aspirin] 81 MG Tablet) PO SCH (22:00)
[2022-12-16] MEDS ORDERED: PRAMIPEXOLE DI HCL 0.25 MG PO SCH (22:00)
[2022-12-16] MEDS: XANAX 1 MG PO SCH (22:00)
[2022-12-16] MEDS ORDERED: NON-FORMULARY ITEM (Sacubitril/Valsartan [Entresto 97 Mg-103 Mg Tablet] 1 EACH Tablet) PO SCH (22:00)
[2022-12-16] MEDS ORDERED: CARBOXYMETHYLCELLULOSE SODIUM OP SCH (22:00)
[2022-12-16] MEDS ORDERED: NON-FORMULARY ITEM (Rosuvastatin Calcium [Rosuvastatin Calcium] 20 MG Tablet) PO SCH (22:00)
[2022-12-16] MEDS ORDERED: NON-FORMULARY ITEM (Budesonide/Glycopyr/Formoterol [Breztri Aerosphere Inhaler] 10.7 GM Hf IH SCH (22:00)
[2022-12-16] MEDS: Lopressor 25MG Tab PO SCH (22:00)
[2022-12-16] MEDS: ENTRESTO 49 MG-51 MG TABLET PO SCH (22:01)
[2022-12-16] MEDS: THEOPHYLLINE ER 24HR PO SCH (22:01)
[2022-12-16] MEDS: Xalatan OP SCH (22:01)
[2022-12-17] MEDS: DUONEB 0.5-3 MG/3 ml Neb IH SCH ×6 (03:54→23:15)
[2022-12-17 05:53] LABS: Absolute Neutrophil Ct (ANC) 9.32 x10^3/uL (1.4-6.9); BASOPHIL % 0.1 % (0.0-0.4); Basophil (Absolute #) 0.01 x10^3/uL (0-0.4); Eosinophil (Absolute #) 0 x10^3/uL (0-0.5); Hematocrit 38.2 % (42-50); Hemoglobin 12.1 g/dL (12.5-18.0); IMMATURE GRAN # 0.07 x10^3u/L (0.00-0.03); IMMATURE GRAN % 0.7 % (0.00-0.4); Lymphocyte (Absolute #) 0.79 x10^3/uL (1.0-4.6); Lymphocytes % 7.4 % (24.0-44.0); Mean Cell Volume 87.4 fL (78-100); Mean Corpuscular Hemoglobin 27.7 pg (26-32); Mean Corpuscular Hgb Concent. 31.7 g/dL (32-36); Mean Platelet Volume 9.9 fL (7.5-11.0); Monocyte (Absolute #) 0.45 x10^3/uL (0.0-1.3); Monocytes % 4.2 % (0.0-12.0); Neutrophil % 87.6 % (36.0-66.0); Platelet Count 208 x10^3/uL (150-450); Red Blood Count 4.37 x10^6/uL (4.1-5.6); Red Cell Distribution Width 16.1 % (11.5-14.0); White Blood Count 10.6 x10^3/uL (4.0-10.5)
[2022-12-17 06:08] LABS: ALBUMIN 3.8 g/dL (3.5-5.0); ALKALINE PHOSPHATASE 42 U/L (38-126); ANION GAP 9.6 MEQ/L (5-15); BLOOD UREA NITROGEN 15 mg/dL (9-20); CHLORIDE 97 mmol/L (98-107); Calcium 9.2 mg/dL (8.4-10.2); Carbon Dioxide 33 mmol/L (22-30); EST GLOMERULAR FILTRATION RATE > 60.0 ML/MIN; Glucose 172 mg/dL (74-106); Potassium 4.2 mmol/L (3.5-5.1); SGOT/AST 25 U/L (17-59); SGPT/ALT 23 U/L (0-50); SODIUM 136 mmol/L (137-145); Total Protein 6.6 g/dL (6.3-8.2)
[2022-12-17] MEDS: Advair Hfa 115/21 Common canister IH SCH ×2 (07:26→19:36)
[2022-12-17] MEDS: Protonix 40MG Tablet PO SCH ×2 (07:57→16:42)
--- NOTE | 2022-12-17 08:27 | PCM.HP ---
History of Present Illness - Chief Complaint Chief Complaint: COPD exacerbation History of Present Illness: is a 77 year old male.with history of hypertension, hyperlipidemia, GERD, COPD with chronic respiratory failure on 4 L oxygen presented in the ER with chief complaint of worsening cough and congestion for the last few days. Patient has been dealing with cough congestion for almost 3 weeks and has taken antibiotics in the past with improvement in symptoms but getting worse for the last 3 days again. Cough productive of yellow-green sputum moderate in amount and despite being on 4 L oxygen gets short of breath. Has increased his oxygen to 5 L with no significant improvement in work of breathing. No fever or chills reported. No chest tightness or pressure reported. Timing/Duration: day(s) (32), gradual onset, worse Activities at Onset: rest Severity of Dyspnea-Max: severe Severity of Dyspnea-Current: severe Possible Cause: frequent episodes Modifying Factors: Improves With: rest. Worsens With: coughing, exertion Associated Symptoms: cough, wheezing, productive cough, tightness - Review of Systems Constitutional: No Fever, No Chills Eyes: No Symptoms Ears, Nose, & Throat: No Symptoms Respiratory: Cough, Orthopnea, Short Of Breath, Wheezing Cardiac: No Chest Pain, No Edema, No Syncope Abdominal/Gastrointestinal: No Abdominal Pain, No Nausea, No Vomiting, No Diarrhea Genitourinary Symptoms: No Dysuria Musculoskeletal: No Back Pain, No Neck Pain Skin: No Rash Neurological: No Dizziness, No Focal Weakness, No Sensory Changes Psychological: No Symptoms Endocrine: No Symptoms Hematologic/Lymphatic: No Symptoms Immunological/Allergic: No Symptoms Medications & Allergies Home Medications: Home Medication List Albuterol 2.5 mg/3 ml Neb [Proventil 2.5 mg/3 ml Neb] 1 neb IH Q6H PRN 02/04/14 [History Confirmed 12/16/22] Aspirin 81 mg PO HS 02/04/14 [History Confirmed 12/16/22] Omeprazole 20 MG [Prilosec 20 mg] 20 mg PO BIDAC 02/04/14 [History Confirmed 12/16/22] Nitroglycerin 0.4 mg Tablet [Nitrostat 0.4 MG Tablet] 0.4 mg SL Q5MIN PRN MR X 3 PRN 08/01/16 [History Confirmed 12/16/22] ALPRAZolam 1 MG [Xanax 1 mg] 1 mg PO BID 10/14/18 [History Confirmed 12/16/22] Isosorbide Mononitrate 60 mg [Imdur 60MG] 60 mg PO DAILY 06/01/20 [History Confirmed 12/16/22] Metoprolol Tartrate 25 mg [Lopressor 25MG Tab] 25 mg PO BID 06/01/20 [History Confirmed 12/16/22] Rosuvastatin Calcium 20 mg PO HS 06/01/20 [History Confirmed 12/16/22] Spironolactone 25 mg [Aldactone 25 MG] 12.5 mg PO DAILY 01/25/21 [History Confirmed 12/16/22] Albuterol Sulfate [Proair Digihaler] 2 puffs IH Q6H PRN 03/24/21 [History Confirmed 12/16/22] Budesonide/Glycopyr/Formoterol [Breztri Aerosphere Inhaler] 2 puffs IH BID 03/24/21 [History Confirmed 12/16/22] Amlodipine Besylate 2.5 mg PO DAILY 06/12/21 [History Confirmed 12/16/22] Furosemide 20 mg [Lasix 20 mg] 20 mg PO DAILY 06/12/21 [History Confirmed 12/16/22] Pramipexole Di-HCl [Mirapex] 0.25 mg PO HS 06/12/21 [History Confirmed 12/16/22] Sacubitril/Valsartan [Entresto 97 mg-103 mg Tablet] 1 tab PO BID 06/12/21 [History Confirmed 12/16/22] Carboxymethylcellulose Sodium [Refresh Liquigel] 1 ml OP HS 09/25/21 [History Confirmed 12/16/22] Latanoprost [Xalatan] 1 ml OP HS 09/25/21 [History Confirmed 12/16/22] Propylene Glycol/Peg 400 [Lubricating Eye Drop] 15 ml OP QID 09/25/21 [History Confirmed 12/16/22] Theophylline Anhydrous [Theophylline ER 24Hr] 400 mg PO BID #60 11/20/21 [Rx Confirmed 12/16/22] Prednisone 20 mg [Deltasone 20 mg] 5 mg PO DAILY 05/19/22 [History Confirmed 12/16/22] Allergies/Adverse Reactions: Allergies Allergy/AdvReac Type Severity Reaction Status Date / Time nicotine [From [facility]] Allergy Severe Rash Verified 06/24/22 14:02 - Past Medical History Past Medical History: Yes Neurological History: No Pertinent History ENT History: No Pertinent History Cardiac History: Aneurysm, Congestive Heart Failure, Hypertension Respiratory History: COPD, Sleep Apnea, Other Endocrine Medical History: Diabetes Type II Musculoskelatal History: No Pertinent History GI Medical History: No Pertinent History, GERD History: No Pertinent History Pyscho-Social History: Anxiety Male Reproductive Disorders: No Pertinent History Comment: 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 PT wears 4L O2 AT ALL TIMES - Past Surgical History Past Surgical History: Yes Neuro Surgical History: No Pertinent History Cardiac History: No Pertinent History Respiratory Surgery: Other GI Surgical History: Hernia Repair Genitourinary Surgical Hx: No Pertinent History Musculskeletal Surgical Hx: Orthopedic Surgery Male Surgical History: Vasectomy Other Surgical History: BACK SURGERY, and ear surgery and a left lung biopsy. 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, double hernia repair, - Social History Smoking Status: Former smoker How long have you smoked: 13 Exposure to second hand smoke: No Alcohol: None Drug Use: none Significant Family History: no pertinent family hx - Physical Exam Vital Signs: Vital Signs - 24 hr Temp Pulse Resp BP BP Pulse Ox 12/17/22 07:24 77 20 96 12/17/22 07:13 97.9 F 79 23 124/65 79 L 12/17/22 03:55 70 16 93 L 12/17/22 03:53 97.1 F 71 21 108/54 94 L 12/17/22 00:00 97.0 F 68 24 108/59 95 12/16/22 23:51 81 16 92 L 12/16/22 20:01 88 16 98 12/16/22 20:00 97.1 F 100 H 24 131/69 96 12/16/22 16:00 98.7 F 120 H 28 H 140/85 93 L 12/16/22 14:09 120 H 28 H 93 L 12/16/22 13:23 32 H 148/92 12/16/22 12:09 91 L 12/16/22 12:00 110 H 36 H 119/77 95 12/16/22 11:30 108 H 32 H 121/77 93 L 12/16/22 11:00 114 H 18 98/70 94 L 12/16/22 10:30 112 H 13 98/67 95 12/16/22 10:23 134/91 12/16/22 10:00 131 H 29 H 106/76 92 L 12/16/22 09:52 112 H 30 H 101/68 93 L 12/16/22 09:50 114 H 41 H 93 L 12/16/22 09:40 120 H 25 H 94 L 12/16/22 09:32 118 H 13 94 L 12/16/22 09:00 117 H 21 111/71 94 L 12/16/22 08:54 118 H 23 110/71 96 12/16/22 08:53 117 H 28 H 95 General Appearance: no apparent distress, alert Neurologic Exam: alert, oriented x 3, cooperative, normal mood/affect, nml cerebellar function, nml station & gait, sensation nml, No motor deficits Eye Exam: PERRL/EOMI, eyes nml inspection Ears, Nose, Throat Exam: normal ENT inspection, TMs normal, pharynx normal, moist mucous membranes Neck Exam: normal inspection, non-tender, supple, full range of motion Respiratory Exam: diminished breath sounds, crackles/rales, rhonchi, wheezing, No respiratory distress Cardiovascular Exam: regular rate/rhythm, normal heart sounds, normal peripheral pulses Gastrointestinal/Abdomen Exam: soft, normal bowel sounds, No tenderness, No mass Back Exam: normal inspection, normal range of motion, No CVA tenderness, No vertebral tenderness Extremity Exam: normal inspection, normal range of motion, pelvis stable Skin Exam: normal color, warm, dry, No rash Lymphatic Exam: No adenopathy Results - Labs Lab/Micro Results: Lab Results-Last 24 Hours 12/16/22 12/16/22 12/16/22 Range/Units 08:53 09:00 09:00 WBC 14.9 H (4.0-10.5) x10^3/uL RBC 4.83 (4.1-5.6) x10^6/uL Hgb 13.0 (12.5-18.0) g/dL Hct 42.3 (42-50) % MCV 87.6 (78-100) fL MCH 26.9 (26-32) pg MCHC 30.7 L (32-36) g/dL RDW 16.1 H (11.5-14.0) % Plt Count 220 (150-450) x10^3/uL MPV 9.8 (7.5-11.0) fL Gran % 82.5 H (36.0-66.0) % Immature Gran % (Auto) 0.6 H (0.00-0.4) % Nucleat RBC Rel Count 0.0 (0.00-0.1) % Eos # (Auto) 0.05 (0-0.5) x10^3/uL Immature Gran # (Auto) 0.09 H (0.00-0.03) x10^3u/L Absolute Lymphs (auto) 1.30 (1.0-4.6) x10^3/uL Absolute Monos (auto) 1.14 (0.0-1.3) x10^3/uL Absolute Nucleated RBC 0.00 (0.00-0.01) x10^3u/L Lymphocytes % 8.7 L (24.0-44.0) % Monocytes % 7.6 (0.0-12.0) % Eosinophils % 0.3 (0.00-5.0) % Basophils % 0.3 (0.0-0.4) % Absolute Granulocytes 12.32 H (1.4-6.9) x10^3/uL Basophils # 0.04 (0-0.4) x10^3/uL Sodium 139 (137-145) mmol/L Potassium 4.2 (3.5-5.1) mmol/L Chloride 100 (98-107) mmol/L Carbon Dioxide 29 (22-30) mmol/L Anion Gap 14.3 (5-15) MEQ/L BUN 10 (9-20) mg/dL Creatinine 0.61 L (0.66-1.25) mg/dL Estimated GFR > 60.0 ML/MIN Glucose 116 H (74-106) mg/dL Lactic Acid 1.1 (0.4-2.0) Calcium 9.0 (8.4-10.2) mg/dL Magnesium 2.0 (1.6-2.3) mg/dL Total Bilirubin 1.60 H (0.2-1.3) mg/dL AST 27 (17-59) U/L ALT 25 (0-50) U/L Alkaline Phosphatase 53 (38-126) U/L Troponin I (0.000-0.034) ng/mL NT-Pro-B Natriuret Pep (<300) pg/mL Serum Total Protein 7.4 (6.3-8.2) g/dL Albumin 4.3 (3.5-5.0) g/dL Urine Color (Yellow) Urine Appearance (Clear) Urine pH (4.6-8.0) Ur Specific [place] (1.005-1.030) Urine Protein (Negative) Urine Glucose (UA) (Negative) mg/dL Urine Ketones (Negative) Urine Blood (Negative) Urine Nitrite (Negative) Urine Bilirubin (Negative) Urine Urobilinogen (0.2) mg/dL Ur Leukocyte Esterase (Negative) U Hyaline Cast (Auto) (0-2) /LPF Urine Microscopic RBC (0-5) /HPF Urine Microscopic WBC (0-5) /HPF Ur Epithelial Cells (None Seen) /HPF Urine Bacteria (None Seen) /HPF Urine Culture Reflexed (NO) Influenza Type A Ag (NEGATIVE) Influenza Type B Ag (NEGATIVE) RSV (PCR) (NEGATIVE) SARS-CoV-2 (PCR) (NEGATIVE) 12/16/22 12/16/22 12/16/22 Range/Units 09:00 12:02 12:02 WBC (4.0-10.5) x10^3/uL RBC (4.1-5.6) x10^6/uL Hgb (12.5-18.0) g/dL Hct (42-50) % MCV (78-100) fL MCH (26-32) pg MCHC (32-36) g/dL RDW (11.5-14.0) % Plt Count (150-450) x10^3/uL MPV (7.5-11.0) fL Gran % (36.0-66.0) % Immature Gran % (Auto) (0.00-0.4) % Nucleat RBC Rel Count (0.00-0.1) % Eos # (Auto) (0-0.5) x10^3/uL Immature Gran # (Auto) (0.00-0.03) x10^3u/L Absolute Lymphs (auto) (1.0-4.6) x10^3/uL Absolute Monos (auto) (0.0-1.3) x10^3/uL Absolute Nucleated RBC (0.00-0.01) x10^3u/L Lymphocytes % (24.0-44.0) % Monocytes % (0.0-12.0) % Eosinophils % (0.00-5.0) % Basophils % (0.0-0.4) % Absolute Granulocytes (1.4-6.9) x10^3/uL Basophils # (0-0.4) x10^3/uL Sodium (137-145) mmol/L Potassium (3.5-5.1) mmol/L Chloride (98-107) mmol/L Carbon Dioxide (22-30) mmol/L Anion Gap (5-15) MEQ/L BUN (9-20) mg/dL Creatinine (0.66-1.25) mg/dL Estimated GFR ML/MIN Glucose (74-106) mg/dL Lactic Acid (0.4-2.0) Calcium (8.4-10.2) mg/dL Magnesium (1.6-2.3) mg/dL Total Bilirubin (0.2-1.3) mg/dL AST (17-59) U/L ALT (0-50) U/L Alkaline Phosphatase (38-126) U/L Troponin I < 0.012 < 0.012 (0.000-0.034) ng/mL NT-Pro-B Natriuret Pep 318 (<300) pg/mL Serum Total Protein (6.3-8.2) g/dL Albumin (3.5-5.0) g/dL Urine Color (Yellow) Urine Appearance (Clear) Urine pH (4.6-8.0) Ur Specific [place] (1.005-1.030) Urine Protein (Negative) Urine Glucose (UA) (Negative) mg/dL Urine Ketones (Negative) Urine Blood (Negative) Urine Nitrite (Negative) Urine Bilirubin (Negative) Urine Urobilinogen (0.2) mg/dL Ur Leukocyte Esterase (Negative) U Hyaline Cast (Auto) (0-2) /LPF Urine Microscopic RBC (0-5) /HPF Urine Microscopic WBC (0-5) /HPF Ur Epithelial Cells (None Seen) /HPF Urine Bacteria (None Seen) /HPF Urine Culture Reflexed (NO) Influenza Type A Ag NEGATIVE (NEGATIVE) Influenza Type B Ag NEGATIVE (NEGATIVE) RSV (PCR) NEGATIVE (NEGATIVE) SARS-CoV-2 (PCR) NEGATIVE (NEGATIVE) 12/16/22 12/16/22 12/17/22 Range/Units 12:48 15:32 05:13 WBC 10.6 H (4.0-10.5) x10^3/uL RBC 4.37 (4.1-5.6) x10^6/uL Hgb 12.1 L (12.5-18.0) g/dL Hct 38.2 L (42-50) % MCV 87.4 (78-100) fL MCH 27.7 (26-32) pg MCHC 31.7 L (32-36) g/dL RDW 16.1 H (11.5-14.0) % Plt Count 208 (150-450) x10^3/uL MPV 9.9 (7.5-11.0) fL Gran % 87.6 H (36.0-66.0) % Immature Gran % (Auto) 0.7 H (0.00-0.4) % Nucleat RBC Rel Count 0.0 (0.00-0.1) % Eos # (Auto) 0 (0-0.5) x10^3/uL Immature Gran # (Auto) 0.07 H (0.00-0.03) x10^3u/L Absolute Lymphs (auto) 0.79 L (1.0-4.6) x10^3/uL Absolute Monos (auto) 0.45 (0.0-1.3) x10^3/uL Absolute Nucleated RBC 0.00 (0.00-0.01) x10^3u/L Lymphocytes % 7.4 L (24.0-44.0) % Monocytes % 4.2 (0.0-12.0) % Eosinophils % 0.0 (0.00-5.0) % Basophils % 0.1 (0.0-0.4) % Absolute Granulocytes 9.32 H (1.4-6.9) x10^3/uL Basophils # 0.01 (0-0.4) x10^3/uL Sodium (137-145) mmol/L Potassium (3.5-5.1) mmol/L Chloride (98-107) mmol/L Carbon Dioxide (22-30) mmol/L Anion Gap (5-15) MEQ/L BUN (9-20) mg/dL Creatinine (0.66-1.25) mg/dL Estimated GFR ML/MIN Glucose (74-106) mg/dL Lactic Acid (0.4-2.0) Calcium (8.4-10.2) mg/dL Magnesium (1.6-2.3) mg/dL Total Bilirubin (0.2-1.3) mg/dL AST (17-59) U/L ALT (0-50) U/L Alkaline Phosphatase (38-126) U/L Troponin I < 0.012 (0.000-0.034) ng/mL NT-Pro-B Natriuret Pep (<300) pg/mL Serum Total Protein (6.3-8.2) g/dL Albumin (3.5-5.0) g/dL Urine Color Yellow (Yellow) Urine Appearance Clear (Clear) Urine pH 6.0 (4.6-8.0) Ur Specific [place] 1.020 (1.005-1.030) Urine Protein 30 (Negative) Urine Glucose (UA) Negative (Negative) mg/dL Urine Ketones 40 A (Negative) Urine Blood Negative (Negative) Urine Nitrite Negative (Negative) Urine Bilirubin Negative (Negative) Urine Urobilinogen 1.0 A (0.2) mg/dL Ur Leukocyte Esterase Negative (Negative) U Hyaline Cast (Auto) NONE SEEN (0-2) /LPF Urine Microscopic RBC 0-2 (0-5) /HPF Urine Microscopic WBC 0-2 (0-5) /HPF Ur Epithelial Cells None Seen (None Seen) /HPF Urine Bacteria None Seen (None Seen) /HPF Urine Culture Reflexed NO (NO) Influenza Type A Ag (NEGATIVE) Influenza Type B Ag (NEGATIVE) RSV (PCR) (NEGATIVE) SARS-CoV-2 (PCR) (NEGATIVE) 12/17/22 Range/Units 05:13 WBC (4.0-10.5) x10^3/uL RBC (4.1-5.6) x10^6/uL Hgb (12.5-18.0) g/dL Hct (42-50) % MCV (78-100) fL MCH (26-32) pg MCHC (32-36) g/dL RDW (11.5-14.0) % Plt Count (150-450) x10^3/uL MPV (7.5-11.0) fL Gran % (36.0-66.0) % Immature Gran % (Auto) (0.00-0.4) % Nucleat RBC Rel Count (0.00-0.1) % Eos # (Auto) (0-0.5) x10^3/uL Immature Gran # (Auto) (0.00-0.03) x10^3u/L Absolute Lymphs (auto) (1.0-4.6) x10^3/uL Absolute Monos (auto) (0.0-1.3) x10^3/uL Absolute Nucleated RBC (0.00-0.01) x10^3u/L Lymphocytes % (24.0-44.0) % Monocytes % (0.0-12.0) % Eosinophils % (0.00-5.0) % Basophils % (0.0-0.4) % Absolute Granulocytes (1.4-6.9) x10^3/uL Basophils # (0-0.4) x10^3/uL Sodium 136 L (137-145) mmol/L Potassium 4.2 (3.5-5.1) mmol/L Chloride 97 L (98-107) mmol/L Carbon Dioxide 33 H (22-30) mmol/L Anion Gap 9.6 (5-15) MEQ/L BUN 15 (9-20) mg/dL Creatinine 0.70 (0.66-1.25) mg/dL Estimated GFR > 60.0 ML/MIN Glucose 172 H (74-106) mg/dL Lactic Acid (0.4-2.0) Calcium 9.2 (8.4-10.2) mg/dL Magnesium (1.6-2.3) mg/dL Total Bilirubin 1.00 (0.2-1.3) mg/dL AST 25 (17-59) U/L ALT 23 (0-50) U/L Alkaline Phosphatase 42 (38-126) U/L Troponin I (0.000-0.034) ng/mL NT-Pro-B Natriuret Pep (<300) pg/mL Serum Total Protein 6.6 (6.3-8.2) g/dL Albumin 3.8 (3.5-5.0) g/dL Urine Color (Yellow) Urine Appearance (Clear) Urine pH (4.6-8.0) Ur Specific [place] (1.005-1.030) Urine Protein (Negative) Urine Glucose (UA) (Negative) mg/dL Urine Ketones (Negative) Urine Blood (Negative) Urine Nitrite (Negative) Urine Bilirubin (Negative) Urine Urobilinogen (0.2) mg/dL Ur Leukocyte Esterase (Negative) U Hyaline Cast (Auto) (0-2) /LPF Urine Microscopic RBC (0-5) /HPF Urine Microscopic WBC (0-5) /HPF Ur Epithelial Cells (None Seen) /HPF Urine Bacteria (None Seen) /HPF Urine Culture Reflexed (NO) Influenza Type A Ag (NEGATIVE) Influenza Type B Ag (NEGATIVE) RSV (PCR) (NEGATIVE) SARS-CoV-2 (PCR) (NEGATIVE) - Radiology Impressions Radiology Exams & Impressions: Radiology Procedures Category Date Time Status CHEST 1 VIEW (PORTABLE) Stat Exams 12/16/22 08:37 Completed - Other Procedures and Tests Respiratory Therapy 12/16/22 14:07 Oxygen Oxymask LPM 5 lpm Assessment/Plan (1) COPD exacerbation Current Visit: Yes Status: Chronic Assessment & Plan: Chief Complaint Diagnosis COPD exacerbation Allergies Allergy/AdvReac Type Severity Reaction Status Date / Time nicotine [From [facility]] Allergy Severe Rash Verified 06/24/22 14:02 Vital Signs (Last 24 hours) Temp Pulse Resp BP BP Pulse Ox 12/17/22 07:24 77 20 96 12/17/22 07:13 97.9 F 79 23 124/65 79 L 12/17/22 03:55 70 16 93 L 12/17/22 03:53 97.1 F 71 21 108/54 94 L 12/17/22 00:00 97.0 F 68 24 108/59 95 12/16/22 23:51 81 16 92 L 12/16/22 20:01 88 16 98 12/16/22 20:00 97.1 F 100 H 24 131/69 96 12/16/22 16:00 98.7 F 120 H 28 H 140/85 93 L 12/16/22 14:09 120 H 28 H 93 L 12/16/22 13:23 32 H 148/92 12/16/22 12:09 91 L 12/16/22 12:00 110 H 36 H 119/77 95 12/16/22 11:30 108 H 32 H 121/77 93 L 12/16/22 11:00 114 H 18 98/70 94 L 12/16/22 10:30 112 H 13 98/67 95 12/16/22 10:23 134/91 12/16/22 10:00 131 H 29 H 106/76 92 L 12/16/22 09:52 112 H 30 H 101/68 93 L 12/16/22 09:50 114 H 41 H 93 L 12/16/22 09:40 120 H 25 H 94 L 12/16/22 09:32 118 H 13 94 L 12/16/22 09:00 117 H 21 111/71 94 L 12/16/22 08:54 118 H 23 110/71 96 12/16/22 08:53 117 H 28 H 95 Current Medications Generic Name Dose Route Start Last Admin Trade Name Freq PRN Reason Stop Dose Admin Albuterol Sulfate 2.5 mg 12/16/22 14:28 Albuterol Sulfate 2.5 Mg/3 Ml [facility] 01/15/23 14:27 Q6HPRN PRN sob Albuterol Sulfate 2 puff 12/16/22 14:46 Albuterol Common Canister Inhaler 01/15/23 14:45 Q6HPRN PRN sob Albuterol/Ipratropium 3 ml 12/16/22 15:00 12/17/22 07:21 Ipratropium/Albuterol Sulfate 3 Ml Ampul.[facility] 01/15/23 14:59 3 ml Q4HRT FAHEEM Administration Alprazolam 1 mg 12/16/22 22:00 12/16/22 22:00 Alprazolam 1 Mg Tablet PO 01/15/23 21:59 1 mg BID FAHEEM Administration Amlodipine Besylate 2.5 mg 12/16/22 16:00 12/16/22 16:06 Amlodipine Besylate 5 Mg Tablet PO 01/15/23 15:59 2.5 mg DAILY FAHEEM Administration Aspirin 81 mg 12/16/22 22:00 12/16/22 21:57 Aspirin 81 Mg Tablet.Ec PO 01/15/23 21:59 81 mg HS FAHEEM Administration Furosemide 20 mg 12/16/22 16:00 12/16/22 16:06 Furosemide 20 Mg Tablet PO 01/15/23 15:59 20 mg DAILY FAHEEM Administration Azithromycin 500 mg in 250 mls @ 250 mls/hr 12/17/22 10:00 Zithromax 500 Mg/ 250 Ml Nacl Premix IV 01/16/23 09:59 Q24H10 FAHEEM Ceftriaxone Sodium/Dextrose 1 g in 50 mls @ 100 mls/hr 12/17/22 10:00 Rocephin 1 Gm-D5w 50 Ml Bag IV 12/20/22 09:59 Q24H10 FAHEEM Isosorbide Mononitrate 60 mg 12/16/22 16:00 12/16/22 16:05 Isosorbide Mononitrate 60 Mg Tab PO 01/15/23 15:59 60 mg DAILY FAHEEM Administration Latanoprost 0 ml 12/16/22 22:00 12/16/22 22:01 Latanoprost 2.5 Ml Bottle OP 01/15/23 21:59 2.5 ml HS FAHEEM Administration Metoprolol Tartrate 25 mg 12/16/22 22:00 12/16/22 22:00 Metoprolol Tartrate 25 Mg Tab PO 01/15/23 21:59 25 mg BID FAHEEM Administration Miscellaneous Information 1 each 12/16/22 15:00 Medication Intervention 1 Each Each 01/15/23 14:59 .RN TO CHECK FAHEEM Miscellaneous Information 1 each 12/16/22 15:00 Medication Intervention 1 Each Each 01/15/23 14:59 .RN TO CHECK FAHEEM Miscellaneous Information 1 each 12/16/22 15:00 Medication Intervention 1 Each Each 01/15/23 14:59 .RN TO CHECK FAHEEM Morphine Sulfate 2 mg 12/16/22 13:27 Morphine Sulfate 2 Mg/Ml Inj IV 12/21/22 13:26 Q4H PRN PRN PAIN Nitroglycerin 0.4 mg 12/16/22 14:28 Nitroglycerin 0.4 Mg Tablet Bottle SL 01/15/23 14:27 Q5MIN PRN MR X 3 PRN CHEST PAIN Ondansetron HCl 4 mg 12/16/22 13:27 Ondansetron Hcl 4 Mg/2 Ml Vial IV 01/15/23 13:26 Q6H PRN PRN NAUSEA/VOMITING Pantoprazole Sodium 40 mg 12/16/22 16:30 12/17/22 07:57 Protonix (Pantoprazole) 40 Mg Tablet PO 01/15/23 16:29 40 mg BIDAC FAHEEM Administration Pramipexole Dihydrochloride 0.25 mg 12/16/22 22:00 12/16/22 21:58 Pramipexole Di-Hcl 0.5 Mg Tab PO 01/15/23 21:59 0.25 mg HS FAHEEM Administration Prednisone 5 mg 12/16/22 16:00 12/16/22 16:06 Prednisone 5 Mg Tablet PO 01/15/23 15:59 5 mg DAILY FAHEEM Administration Sacubitril/Valsartan 2 tablet 12/16/22 22:00 12/16/22 22:01 Sacubitril/Valsartan 1 Tablet Tablet PO 01/15/23 21:59 2 tablet BID FAHEEM Administration Fluticasone/Salmeterol 2 puff 12/16/22 19:00 12/17/22 07:26 Fluticasone/Salmeterol 115/21 - 120 Puff Common Canister 01/15/23 18:59 2 puff BIDRT FAHEEM Administration Simvastatin 10 mg 12/16/22 22:00 12/16/22 21:57 Simvastatin 10 Mg Tablet PO 01/15/23 21:59 10 mg HS FAHEEM Administration Spironolactone 12.5 mg 12/16/22 16:00 12/16/22 16:05 Spironolactone 25 Mg Tablet PO 01/15/23 15:59 12.5 mg DAILY FAHEEM Administration Theophylline 400 mg 12/16/22 22:00 12/16/22 22:01 Theophylline Anhydrous 400 Mg Tab.Er.24hr Tablet PO 01/15/23 21:59 400 mg BID FAHEEM Administration Discontinued Medications Generic Name Dose Route Start Last Admin Trade Name Freq PRN Reason Stop Dose Admin Albuterol/Ipratropium 3 ml 12/16/22 08:36 12/16/22 08:49 Ipratropium/Albuterol Sulfate 3 Ml Ampul.Neb IH 12/16/22 08:37 3 ml STAT ONE Administration Albuterol/Ipratropium Confirm 12/16/22 08:45 Ipratropium/Albuterol Sulfate 3 Ml Ampul.Neb Administered 12/16/22 08:46 Dose 3 ml IH .STK-MED ONE Albuterol/Ipratropium Confirm 12/16/22 14:04 Ipratropium/Albuterol Sulfate 3 Ml Ampul.Neb Administered 12/16/22 14:05 Dose 3 ml IH .STK-MED ONE Methylprednisolone Sodium 0 mg 12/16/22 08:36 12/16/22 08:44 Succinate 125 mg/ Sterile IV 12/16/22 08:37 1 mg Water 2 ml STAT ONE Administration Methylprednisolone Sodium 0 mg 12/16/22 08:42 12/16/22 08:49 Succinate 120 mg/ Sterile IV 12/16/22 08:43 120 mg Water 3 ml STAT STA Administration Ceftriaxone Sodium/Dextrose 2 g in 50 mls @ 100 mls/hr 12/16/22 08:52 12/16/22 09:46 Rocephin 2 Gm-D5w 50ml Bag IV 12/16/22 09:21 Infused STAT STA Infusion Azithromycin 500 mg in 250 mls @ 250 mls/hr 12/16/22 08:52 12/16/22 10:57 Zithromax 500 Mg/ 250 Ml Nacl Premix IV 12/16/22 09:51 Infused STAT STA Infusion Ceftriaxone Sodium/Dextrose Confirm 12/16/22 09:12 Rocephin 2 Gm-D5w 50ml Bag Administered 12/16/22 09:13 Dose 2 g in 50 mls @ ud IV .STK-MED ONE Azithromycin Confirm 12/16/22 09:48 Zithromax 500 Mg/ 250 Ml Nacl Premix Administered 12/16/22 09:49 Dose 500 mg in 250 mls @ ud IV .STK-MED ONE Methylprednisolone Sodium Succinate Confirm 12/16/22 08:46 Methylprednisolone Sod Suc 40m 40 Mg/Ml Vial Administered 12/16/22 08:47 Dose 40 mg .ROUTE .STK-MED ONE Methylprednisolone Sodium Succinate Confirm 12/16/22 08:47 Methylprednisolone Sod Suc 40m 40 Mg/Ml Vial Administered 12/16/22 08:48 Dose 40 mg .ROUTE .STK-MED ONE Methylprednisolone Sodium Succinate Confirm 12/16/22 08:47 Methylprednisolone Sod Suc 40m 40 Mg/Ml Vial Administered 12/16/22 08:48 Dose 40 mg .ROUTE .STK-MED ONE Sterile Water Confirm 12/16/22 08:46 Water For Injection,Sterile 10 Ml Vial Administered 12/16/22 08:47 Dose 10 ml IJ .STK-MED ONE Sterile Water Confirm 12/16/22 08:47 Water For Injection,Sterile 10 Ml Vial Administered 12/16/22 08:48 Dose 10 ml IJ .STK-MED ONE Sterile Water Confirm 12/16/22 08:47 Water For Injection,Sterile 10 Ml Vial Administered 12/16/22 08:48 Dose 10 ml IJ .STK-MED ONE Intake & Output (Last 24 hours) 12/14/22 12/15/22 12/16/22 12/17/22 11:59 11:59 11:59 11:59 Intake Total 1320 Output Total 700 Balance 620 Weight 82.3 kg 81.4 kg Microbiology Results (Last 24 hours) 12/16/22 09:10 Blood Blood Culture - Pending 12/16/22 09:00 Blood Blood Culture - Pending Laboratory Results (Last 24 hours) 12/17/22 12/17/22 12/16/22 05:13 05:13 15:32 WBC 10.6 H RBC 4.37 Hgb 12.1 L Hct 38.2 L MCV 87.4 MCH 27.7 MCHC 31.7 L RDW 16.1 H Plt Count 208 MPV 9.9 Gran % 87.6 H Immature Gran % (Auto) 0.7 H Nucleat RBC Rel Count 0.0 Eos # (Auto) 0 Immature Gran # (Auto) 0.07 H Absolute Lymphs (auto) 0.79 L Absolute Monos (auto) 0.45 Absolute Nucleated RBC 0.00 Lymphocytes % 7.4 L Monocytes % 4.2 Eosinophils % 0.0 Basophils % 0.1 Absolute Granulocytes 9.32 H Basophils # 0.01 Sodium 136 L Potassium 4.2 Chloride 97 L Carbon Dioxide 33 H Anion Gap 9.6 BUN 15 Creatinine 0.70 Estimated GFR > 60.0 Glucose 172 H Lactic Acid Calcium 9.2 Magnesium Total Bilirubin 1.00 AST 25 ALT 23 Alkaline Phosphatase 42 Troponin I < 0.012 NT-Pro-B Natriuret Pep Serum Total Protein 6.6 Albumin 3.8 Urine Color Urine Appearance Urine pH Ur Specific [place] Urine Protein Urine Glucose (UA) Urine Ketones Urine Blood Urine Nitrite Urine Bilirubin Urine Urobilinogen Ur Leukocyte Esterase U Hyaline Cast (Auto) Urine Microscopic RBC Urine Microscopic WBC Ur Epithelial Cells Urine Bacteria Urine Culture Reflexed Influenza Type A Ag Influenza Type B Ag RSV (PCR) SARS-CoV-2 (PCR) 12/16/22 12/16/22 12/16/22 12:48 12:02 12:02 WBC RBC Hgb Hct MCV MCH MCHC RDW Plt Count MPV Gran % Immature Gran % (Auto) Nucleat RBC Rel Count Eos # (Auto) Immature Gran # (Auto) Absolute Lymphs (auto) Absolute Monos (auto) Absolute Nucleated RBC Lymphocytes % Monocytes % Eosinophils % Basophils % Absolute Granulocytes Basophils # Sodium Potassium Chloride Carbon Dioxide Anion Gap BUN Creatinine Estimated GFR Glucose Lactic Acid Calcium Magnesium Total Bilirubin AST ALT Alkaline Phosphatase Troponin I < 0.012 NT-Pro-B Natriuret Pep Serum Total Protein Albumin Urine Color Yellow Urine Appearance Clear Urine pH 6.0 Ur Specific [place] 1.020 Urine Protein 30 Urine Glucose (UA) Negative Urine Ketones 40 A Urine Blood Negative Urine Nitrite Negative Urine Bilirubin Negative Urine Urobilinogen 1.0 A Ur Leukocyte Esterase Negative U Hyaline Cast (Auto) NONE SEEN Urine Microscopic RBC 0-2 Urine Microscopic WBC 0-2 Ur Epithelial Cells None Seen Urine Bacteria None Seen Urine Culture Reflexed NO Influenza Type A Ag NEGATIVE Influenza Type B Ag NEGATIVE RSV (PCR) NEGATIVE SARS-CoV-2 (PCR) NEGATIVE 12/16/22 12/16/22 12/16/22 09:00 09:00 09:00 WBC 14.9 H RBC 4.83 Hgb 13.0 Hct 42.3 MCV 87.6 MCH 26.9 MCHC 30.7 L RDW 16.1 H Plt Count 220 MPV 9.8 Gran % 82.5 H Immature Gran % (Auto) 0.6 H Nucleat RBC Rel Count 0.0 Eos # (Auto) 0.05 Immature Gran # (Auto) 0.09 H Absolute Lymphs (auto) 1.30 Absolute Monos (auto) 1.14 Absolute Nucleated RBC 0.00 Lymphocytes % 8.7 L Monocytes % 7.6 Eosinophils % 0.3 Basophils % 0.3 Absolute Granulocytes 12.32 H Basophils # 0.04 Sodium 139 Potassium 4.2 Chloride 100 Carbon Dioxide 29 Anion Gap 14.3 BUN 10 Creatinine 0.61 L Estimated GFR > 60.0 Glucose 116 H Lactic Acid Calcium 9.0 Magnesium 2.0 Total Bilirubin 1.60 H AST 27 ALT 25 Alkaline Phosphatase 53 Troponin I < 0.012 NT-Pro-B Natriuret Pep 318 Serum Total Protein 7.4 Albumin 4.3 Urine Color Urine Appearance Urine pH Ur Specific [place] Urine Protein Urine Glucose (UA) Urine Ketones Urine Blood Urine Nitrite Urine Bilirubin Urine Urobilinogen Ur Leukocyte Esterase U Hyaline Cast (Auto) Urine Microscopic RBC Urine Microscopic WBC Ur Epithelial Cells Urine Bacteria Urine Culture Reflexed Influenza Type A Ag Influenza Type B Ag RSV (PCR) SARS-CoV-2 (PCR) 12/16/22 08:53 WBC RBC Hgb Hct MCV MCH MCHC RDW Plt Count MPV Gran % Immature Gran % (Auto) Nucleat RBC Rel Count Eos # (Auto) Immature Gran # (Auto) Absolute Lymphs (auto) Absolute Monos (auto) Absolute Nucleated RBC Lymphocytes % Monocytes % Eosinophils % Basophils % Absolute Granulocytes Basophils # Sodium Potassium Chloride Carbon Dioxide Anion Gap BUN Creatinine Estimated GFR Glucose Lactic Acid 1.1 Calcium Magnesium Total Bilirubin AST ALT Alkaline Phosphatase Troponin I NT-Pro-B Natriuret Pep Serum Total Protein Albumin Urine Color Urine Appearance Urine pH Ur Specific [place] Urine Protein Urine Glucose (UA) Urine Ketones Urine Blood Urine Nitrite Urine Bilirubin Urine Urobilinogen Ur Leukocyte Esterase U Hyaline Cast (Auto) Urine Microscopic RBC Urine Microscopic WBC Ur Epithelial Cells Urine Bacteria Urine Culture Reflexed Influenza Type A Ag Influenza Type B Ag RSV (PCR) SARS-CoV-2 (PCR) Orders (Last 24 hours) Category Date Time Status Bedrest ROUTINE Activity 12/16/22 13:27 Active Up With Assistance ROUTINE Activity 12/16/22 13:27 Active Call Admit Doctor for Orders ON ADMISSION Care 12/16/22 13:27 Active Quality Assurance Supervisor Trim STAT Care 12/16/22 08:37 Completed Code Status Order ROUTINE Care 12/16/22 13:27 Active EKG-ER Only STAT Care 12/16/22 08:36 Completed Fall Protocol Q1H Care 12/16/22 13:27 Active IV Care Q6H Care 12/16/22 13:27 Active IV Insertion STAT Care 12/16/22 08:36 Completed Oxygen-ED Only Nasal Cannula 5 lpm Care 12/16/22 08:[address] in Observation ROUTINE Care 12/16/22 13:27 Active Bari Jenkins ROUTINE Care 12/16/22 13:27 Active Telemetry q6h Care 12/16/22 13:18 Active Heart-Healthy Diet Diet 12/16/22 Dinner Active CHEST 1 VIEW (PORTABLE) Stat Exams 12/16/22 08:37 Completed BLOOD CULTURE Stat Lab 12/16/22 09:10 Received CBC W DIFF AM.LAB Lab 12/17/22 05:13 Completed CBC W DIFF Stat Lab 12/16/22 09:00 Completed CMP AM.LAB Lab 12/17/22 05:13 Completed CMP Stat Lab 12/16/22 09:00 Completed COVID/FLU/RSV Panel Stat Lab 12/16/22 12:02 Completed Lactic Acid Stat Lab 12/16/22 08:53 Completed MAGNESIUM Stat Lab 12/16/22 09:00 Completed NT PRO BNPII Stat Lab 12/16/22 09:00 Completed TROPONIN Q4H Lab 12/16/22 09:00 Completed TROPONIN Q4H Lab 12/16/22 12:02 Completed TROPONIN Q4H Lab 12/16/22 15:32 Completed UA W/RFX UR CULTURE Stat Lab 12/16/22 12:48 Completed ALPRAZolam 1 MG [Xanax 1 mg] Med 12/16/22 22:00 Active 1 mg PO BID Albuterol 2.5 mg/3 ml Neb [Proventil 2.5 mg/3 ml Neb Med 12/16/22 14:28 Active ] 2.5 mg IH Q6HPRN PRN Albuterol Common Canister [Ventolin Common Canister* Med 12/16/22 14:46 Active ] 2 puff IH Q6HPRN PRN Albuterol/Ipratropium 3ml Neb* [DUONEB 0.5-3 MG/3 ml Med 12/16/22 08:45 Discontinued Neb] 3 ml IH .STK-MED ONE Albuterol/Ipratropium 3ml Neb* [DUONEB 0.5-3 MG/3 ml Med 12/16/22 14:04 Discontinued Neb] 3 ml IH .STK-MED ONE Albuterol/Ipratropium 3ml Neb* [DUONEB 0.5-3 MG/3 ml Med 12/16/22 15:00 Active Neb] 3 ml IH Q4HRT Albuterol/Ipratropium 3ml Neb* [DUONEB 0.5-3 MG/3 ml Med 12/16/22 08:36 Discontinued Neb] 3 ml IH STAT ONE Amlodipine Besylate 5 mg [Norvasc 5 mg] Med 12/16/22 16:00 Active 2.5 mg PO DAILY Aspirin EC 81 mg [Ecotrin 81 mg] Med 12/16/22 22:00 Active 81 mg PO HS Azithromycin 500 mg/250 ml [Zithromax 500 MG/ 250 ML Med 12/17/22 10:00 Active NaCl Premix] 500 mg in 250 ml IV Q24H10 Azithromycin 500 mg/250 ml [Zithromax 500 MG/ 250 ML Med 12/16/22 08:52 Discontinued NaCl Premix] 500 mg in 250 ml IV STAT Azithromycin 500 mg/250 ml [Zithromax 500 MG/ 250 ML Med 12/16/22 09:48 Discontinued NaCl Premix] 500 mg in 250 ml IV UD Ceftriaxone 1 GM/50 ML PREMIX* [ROCEPHIN 1 Gm-D5w 50 ml Med 12/17/22 10:00 Active Bag] 1 g in 50 ml IV Q24H10 Ceftriaxone 2 GM/50 ML PREMIX* [ROCEPHIN 2 Gm-D5w 50ML Med 12/16/22 08:52 Discontinued BAG] 2 g in 50 ml IV STAT Ceftriaxone 2 GM/50 ML PREMIX* [ROCEPHIN 2 Gm-D5w 50ML Med 12/16/22 09:12 Discontinued BAG] 2 g in 50 ml IV UD Fluticasone/Salmeterol 115/21 [Advair Hfa 115/21 Common Med 12/16/22 19:00 Active canister*] 2 puff IH BIDRT Furosemide 20 mg [Lasix 20 mg] Med 12/16/22 16:00 Active 20 mg PO DAILY Isosorbide Mononitrate 60 mg [Imdur 60MG] Med 12/16/22 16:00 Active 60 mg PO DAILY Latanoprost [Xalatan] Med 12/16/22 22:00 Active 0 ml OP HS Medication Intervention Med 12/16/22 15:00 Active 1 each MC .RN TO CHECK Medication Intervention Med 12/16/22 15:00 Active 1 each MC .RN TO CHECK Medication Intervention Med 12/16/22 15:00 Active 1 each MC .RN TO CHECK Methylprednis Sod Succ 125 mg* [solu-MEDROL] 125 mg Med 12/16/22 08:36 Discont inued Water For Injection,Sterile [Sterile H2O 10 ml] 2 ml IV STAT Methylprednisolone Sod Suc 40M [solu-MEDROL] Med 12/16/22 08:46 Discontinued 40 mg .ROUTE .STK-MED ONE Methylprednisolone Sod Suc 40M [solu-MEDROL] Med 12/16/22 08:47 Discontinued 40 mg .ROUTE .STK-MED ONE Methylprednisolone Sod Suc 40M [solu-MEDROL] Med 12/16/22 08:47 Discontinued 40 mg .ROUTE .STK-MED ONE Methylprednisolone Sod Suc 40M [solu-MEDROL] 120 mg Med 12/16/22 08:42 Discontinued Water For Injection,Sterile [Sterile H2O 10 ml] 3 ml IV STAT Metoprolol Tartrate 25 mg [Lopressor 25MG Tab] Med 12/16/22 22:00 Active 25 mg PO BID Morphine Sulfate 2 mg Inj Med 12/16/22 13:27 Active 2 mg IV Q4H PRN PRN Nitroglycerin 0.4 mg Tablet [Nitrostat 0.4 MG Tablet Med 12/16/22 14:28 Active ] 0.4 mg SL Q5MIN PRN MR X 3 PRN Ondansetron HCl 4 mg/2 ml [Zofran 4 MG/2 ML VIAL] Med 12/16/22 13:27 Active 4 mg IV Q6H PRN PRN PANTOPRAZOLE 40 mg Tablet [Protonix 40MG Tablet] Med 12/16/22 16:30 Active 40 mg PO BIDAC Pramipexole Di-HCl 0.5 mg [Mirapex 0.5 MG Tablet] Med 12/16/22 22:00 Active 0.25 mg PO HS Prednisone 5 mg [Deltasone 5 mg] Med 12/16/22 16:00 Active 5 mg PO DAILY Sacubitril/Valsartan [Entresto 49 mg-51 mg Tablet] Med 12/16/22 22:00 Active 2 tablet PO BID Simvastatin 10 mg [Zocor 10MG] Med 12/16/22 22:00 Active 10 mg PO HS Spironolactone 25 mg [Aldactone 25 MG] Med 12/16/22 16:00 Active 12.5 mg PO DAILY Theophylline Anhydrous [Theophylline ER 24Hr] Med 12/16/22 22:00 Active 400 mg PO BID Water For Injection,Sterile [Sterile H2O 10 ml] Med 12/16/22 08:46 Discontinued 10 ml IJ .STK-MED ONE Water For Injection,Sterile [Sterile H2O 10 ml] Med 12/16/22 08:47 Discontinued 10 ml IJ .STK-MED ONE Water For Injection,Sterile [Sterile H2O 10 ml] Med 12/16/22 08:47 Discontinued 10 ml IJ .STK-MED ONE Oxygen Oxymask LPM 5 lpm RT 12/16/22 14:07 Active Pulse Oximetry .continuos RT 12/16/22 14:07 Active Code(s): J44.1 - CHRONIC OBSTRUCTIVE PULMONARY DISEASE W (ACUTE) EXACERBATION (2) Chronic hypoxemic respiratory failure Current Visit: Yes Status: Chronic
[2022-12-17] MEDS: Imdur 60MG PO SCH (09:44)
[2022-12-17] MEDS: DELTASONE 5 MG PO SCH (09:44)
[2022-12-17] MEDS: Aldactone 25 MG PO SCH (09:44)
[2022-12-17] MEDS: ENTRESTO 49 MG-51 MG TABLET PO SCH ×2 (09:44→20:48)
[2022-12-17] MEDS: Lopressor 25MG Tab PO SCH ×2 (09:45→20:49)
[2022-12-17] MEDS: THEOPHYLLINE ER 24HR PO SCH ×2 (09:45→20:49)
[2022-12-17] MEDS: XANAX 1 MG PO SCH ×2 (09:45→20:50)
[2022-12-17] MEDS: NORVASC 5 MG PO SCH (09:45)
[2022-12-17] MEDS: LASIX 20 MG PO SCH (09:45)
[2022-12-17] MEDS: ROCEPHIN 1 Gm-D5w 50 ml Bag** 1 G/50 ML IVPB IV SCH (09:45)
[2022-12-17] MEDS ORDERED: DELTASONE 20 MG PO SCH (10:00)
[2022-12-17] MEDS ORDERED: NON-FORMULARY ITEM (Amlodipine Besylate [Amlodipine Besylate] 2.5 MG Tablet) PO SCH (10:00)
[2022-12-17] MEDS: Zithromax 500 MG/ 250 ML NaCl Premix 500 MG/250 ML IVPB IV SCH (10:22)
[2022-12-17] MEDS: Artificial Tears 15 ML OP SCH ×2 (16:47→20:48)
[2022-12-17] MEDS: ECOTRIN 81 MG PO SCH (20:48)
[2022-12-17] MEDS: Mirapex 0.5 MG Tablet PO SCH (20:49)
[2022-12-17] MEDS: Xalatan OP SCH ×2 (20:49→23:32)
[2022-12-17] MEDS: Zocor 10MG PO SCH (20:50)
[2022-12-18] MEDS: DUONEB 0.5-3 MG/3 ml Neb IH SCH ×3 (03:44→11:04)
[2022-12-18] MEDS: Advair Hfa 115/21 Common canister IH SCH (07:02)
[2022-12-18] MEDS: Protonix 40MG Tablet PO SCH (08:43)
[2022-12-18] MEDS: DELTASONE 5 MG PO SCH (08:44)
[2022-12-18] MEDS: XANAX 1 MG PO SCH (08:44)
[2022-12-18] MEDS: ENTRESTO 49 MG-51 MG TABLET PO SCH (08:44)
[2022-12-18] MEDS: Imdur 60MG PO SCH (08:45)
[2022-12-18] MEDS: Lopressor 25MG Tab PO SCH (08:45)
[2022-12-18] MEDS: LASIX 20 MG PO SCH (08:46)
[2022-12-18] MEDS: Aldactone 25 MG PO SCH (08:46)
[2022-12-18] MEDS: THEOPHYLLINE ER 24HR PO SCH (08:48)
[2022-12-18] MEDS: NORVASC 5 MG PO SCH (08:48)
[2022-12-18] MEDS: Artificial Tears 15 ML OP SCH ×2 (08:50→13:22)
[2022-12-18] MEDS: ROCEPHIN 1 Gm-D5w 50 ml Bag** 1 G/50 ML IVPB IV SCH (09:09)
[2022-12-18] MEDS: Zithromax 500 MG/ 250 ML NaCl Premix 500 MG/250 ML IVPB IV SCH (09:44)
[2022-12-18 12:01] VITALS: BP 100/59; PULSE 84; O2SAT 93
--- NOTE | 2022-12-18 13:51 | PCM.DCORD ---
- Discharge Disposition: DC TO [facility] Condition: Stable Prescriptions: New Prednisone 5 mg [Deltasone 5 mg] 5 mg PO DAILY #33 tablet Discontinued Prednisone 20 mg [Deltasone 20 mg] 5 mg PO DAILY No Action Omeprazole 20 MG [Prilosec 20 mg] 20 mg PO BIDAC Albuterol 2.5 mg/3 ml Neb [Proventil 2.5 mg/3 ml Neb] 1 neb IH Q6H PRN PRN Reason: sob Aspirin 81 mg PO HS Nitroglycerin 0.4 mg Tablet [Nitrostat 0.4 MG Tablet] 0.4 mg SL Q5MIN PRN MR X 3 PRN PRN Reason: Chest Pain ALPRAZolam 1 MG [Xanax 1 mg] 1 mg PO BID Isosorbide Mononitrate 60 mg [Imdur 60MG] 60 mg PO DAILY Metoprolol Tartrate 25 mg [Lopressor 25MG Tab] 25 mg PO BID Rosuvastatin Calcium 20 mg PO HS Spironolactone 25 mg [Aldactone 25 MG] 12.5 mg PO DAILY Budesonide/Glycopyr/Formoterol [Breztri Aerosphere Inhaler] 2 puffs IH BID Albuterol Sulfate [Proair Digihaler] 2 puffs IH Q6H PRN PRN Reason: sob Pramipexole Di-HCl [Mirapex] 0.25 mg PO HS Sacubitril/Valsartan [Entresto 97 mg-103 mg Tablet] 1 tab PO BID Furosemide 20 mg [Lasix 20 mg] 20 mg PO DAILY Amlodipine Besylate 2.5 mg PO DAILY Propylene Glycol/Peg 400 [Lubricating Eye Drop] 15 ml OP QID Latanoprost [Xalatan] 1 ml OP HS Carboxymethylcellulose Sodium [Refresh Liquigel] 1 ml OP HS Theophylline Anhydrous [Theophylline ER 24Hr] 400 mg PO BID #60 Additional Instructions: Pathology Manager Dr Moreno - keep current appt Follow up with: DAV SEALS DO [Primary Care Provider] -
== END 2022-12-18 14:28 ==
LOC: ED 08:17 → MED SURG 13:18
PROVIDERS: ADMIT General Practice; ATTEND Family Medicine
DX: J44.1 Chronic obstructive pulmonary disease with (acute) exacerbation (principal); J96.11 Chronic respiratory failure with hypoxia; I11.0 Hypertensive heart disease with heart failure; I50.9 Heart failure, unspecified; E11.9 Type 2 diabetes mellitus without complications; E78.5 Hyperlipidemia, unspecified; Z99.81 Dependence on supplemental oxygen; Z79.899 Other long term (current) drug therapy; Z20.828 Contact with and (suspected) exposure to other viral communicable diseases; Z85.828 Personal history of other malignant neoplasm of skin
CPT/HCPCS: 0241U; 36000; 36415; 71045; 80053; 81001; 83605; 83735; 83880; 84484; 85025; 87040; 93005; 93041; 93268; 94640; 94762; 96365; 96367; 96374; 96376; 99285; G0378; J0456; J0696; J2920; J2930; A9270-GY

== ENCOUNTER 2023-06-26 10:36 | Inpatient (IN) | payer MEDICARE, SELFPAY ==
[2023-06-26] MEDS ORDERED: DUONEB 0.5-3 MG/3 ml Neb IH ONE ×2 (10:44→10:45)
[2023-06-26] MEDS ORDERED: Zithromax 500 MG/ 250 ML NaCl Premix 500 MG/250 ML IVPB IV STA (10:47)
[2023-06-26] MEDS ORDERED: ROCEPHIN 2 Gm-D5w 50ML BAG** 2 G/50 ML IVPB IV STA (10:47)
[2023-06-26] MEDS ORDERED: solu-MEDROL 125 MG, Sterile H2O 10 ml 2 ML IV ONE ×2 (10:48)
--- NOTE | 2023-06-26 10:51 | ERPHSYRPT ---
- History of Present Illness Time Seen by Provider: 06/26/23 10:45 Source: patient Exam Limitations: no limitations Patient Subjective Stated Complaint: Pt states "I have been short of breath for a couple of days. I am having a flair up. I have COPD." Triage Nursing Assessment: Pt presented alert and oriented X 3, skin pwd. Pt ambulates with an upright staedy gait, ableto speak in clear sentences two to three words. PT resting comfortably on the bed with a NRB on at this time with SpO2 at 99% Physician History: Patient is a 77-year-old male history of COPD presents to our ED for evaluation of a 2-day history of progressive shortness of breath. Patient states his symptoms are similar to his previous COPD exacerbations. No associated chest pain. No nausea vomiting or diaphoresis. Upon arrival to our ED patient was hypoxic at 70% on room air. Patient requires 4 L nasal cannula daily. No nausea vomiting or diaphoresis no fevers. Symptoms are currently moderate in intensity. Activity worsens symptoms. Symptoms improved with rest. Patient otherwise feels well and voices no other complaints. Portions of this note were created with voice recognition technology. There may be grammatical, spelling, punctuation or sound alike errors Timing/Duration: day(s) (2 days) Activities at Onset: none Severity of Dyspnea-Max: moderate Severity of Dyspnea-Current: moderate Possible Cause: occasional episodes (COPD exacerbation) Modifying Factors: Improves With: activity Associated Symptoms: denies symptoms Allergies/Adverse Reactions: nicotine [From Nicoderm CQ] Allergy (Severe, Verified 06/24/22 14:02) Rash Home Medications: Albuterol 2.5 mg/3 ml Neb [Proventil 2.5 mg/3 ml Neb] 1 neb IH Q6H PRN 02/04/14 [History] Aspirin 81 mg PO HS 02/04/14 [History] Omeprazole 20 MG [Prilosec 20 mg] 20 mg PO BIDAC 02/04/14 [History] Nitroglycerin 0.4 mg Tablet [Nitrostat 0.4 MG Tablet] 0.4 mg SL Q5MIN PRN MR X 3 PRN 08/01/16 [History] ALPRAZolam 1 MG [Xanax 1 mg] 1 mg PO BID 10/14/18 [History] Isosorbide Mononitrate 60 mg [Imdur 60MG] 60 mg PO DAILY 06/01/20 [History] Metoprolol Tartrate 25 mg [Lopressor 25MG Tab] 25 mg PO BID 06/01/20 [Hi story] Rosuvastatin Calcium 20 mg PO HS 06/01/20 [History] Spironolactone 25 mg [Aldactone 25 MG] 12.5 mg PO DAILY 01/25/21 [History] Albuterol Sulfate [Proair Digihaler] 2 puffs IH Q6H PRN 03/24/21 [History] Budesonide/Glycopyr/Formoterol [Breztri Aerosphere Inhaler] 2 puffs IH BID 03/24/21 [History] Amlodipine Besylate 2.5 mg PO DAILY 06/12/21 [History] Furosemide 20 mg [Lasix 20 mg] 20 mg PO DAILY 06/12/21 [History] Pramipexole Di-HCl [Mirapex] 0.25 mg PO HS 06/12/21 [History] Sacubitril/Valsartan [Entresto 97 mg-103 mg Tablet] 1 tab PO BID 06/12/21 [History] Carboxymethylcellulose Sodium [Refresh Liquigel] 1 ml OP HS 09/25/21 [History] Latanoprost [Xalatan] 1 ml OP HS 09/25/21 [History] Propylene Glycol/Peg 400 [Lubricating Eye Drop] 15 ml OP QID 09/25/21 [History] Hx Tetanus, Diphtheria Vaccination/Date Given: No Hx Influenza Vaccination/Date Given: Yes Hx Pneumococcal Vaccination/Date Given: No Immunizations Up to Date: No Travel Risk - International Travel Have you traveled outside of the country in past 3 weeks: No - Coronavirus Screening Are you exhibiting any of the following symptoms?: Yes Symptoms: Cough: New Onset, Shortness of Breath - Vaccine Status Have you recieved a Covid-19 vaccination: No - Review of Systems Constitutional: No Symptoms, No Fever, No Chills Eyes: No Symptoms Ears, Nose, & Throat: No Symptoms Respiratory: No Symptoms, No Cough, No Dyspnea Cardiac: No Symptoms, No Chest Pain, No Edema, No Syncope Abdominal/Gastrointestinal: No Symptoms, No Abdominal Pain, No Nausea, No Vomiting, No Diarrhea Genitourinary Symptoms: No Symptoms, No Dysuria Musculoskeletal: No Symptoms, No Back Pain, No Neck Pain Skin: No Symptoms, No Rash Neurological: No Symptoms, No Dizziness, No Focal Weakness, No Sensory Changes Psychological: No Symptoms Endocrine: No Symptoms Hematologic/Lymphatic: No Symptoms Immunological/Allergic: No Symptoms All Other Systems: Reviewed and Negative - Past Medical History Pertinent Past Medical History: Yes Neurological History: No Pertinent History ENT History: No Pertinent History Cardiac History: Aneurysm, Congestive Heart Failure, Hypertension Respiratory History: COPD, Sleep Apnea, Other Endocrine Medical History: Diabetes Type II Musculoskeletal History: No Pertinent History GI Medical History: No Pertinent History, GERD History: No Pertinent History Psycho-Social History: Anxiety Male Reproductive Disorders: No Pertinent History Other Medical History: 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 PT wears 4L O2 AT ALL TIMES - Past Surgical History Past Surgical History: Yes Neuro Surgical History: No Pertinent History Cardiac: No Pertinent History Respiratory: Other Gastrointestinal: Hernia Repair Genitourinary: No Pertinent History Musculoskeletal: Orthopedic Surgery Male Surgical History: Vasectomy Other Surgical History: BACK SURGERY, and ear surgery and a left lung biopsy. 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, double hernia repair, - Social History Smoking Status: Former smoker How long have you smoked: 13 Exposure to second hand smoke: No Drug Use: none Patient Lives Alone: No Significant Family History: no pertinent family hx - Nursing Vital Signs Nursing Vital Signs: Initial Vital Signs Pulse Rate 111 H 06/26/23 10:35 Respiratory Rate 24 06/26/23 10:35 Blood Pressure 91/60 06/26/23 10:35 O2 Sat by Pulse Oximetry 88 L 06/26/23 10:35 Pain Scale Pain Intensity 0 - Physical Exam General Appearance: no apparent distress, alert Eye Exam: PERRL/EOMI, eyes nml inspection Ears, Nose, Throat Exam: hearing grossly normal, normal ENT inspection, normal pharynx Neck Exam: normal inspection, supple, full range of motion Respiratory Exam: diminished breath sounds, rhonchi, wheezing Cardiovascular/Chest Exam: normal heart sounds, regular rate/rhythm Abdominal/Gastrointestinal Exam: soft, No tenderness, No distention, No mass Extremity Exam: non-tender, normal range of motion, normal inspection, no calf tenderness, no pedal edema Neurologic Exam: alert, oriented x 3, 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, 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, sensation nml, No motor deficits Skin Exam: normal color, warm, No dry Lymphatic Exam: No adenopathy SpO2 Interpretation: normal SpO2: 99 O2 Delivery: Room Air - Course Nursing assessment & vital signs reviewed: Yes EKG Interpreted by Me: RATE ([id number]), Sinus Tach, NORMAL AXIS, NORMAL INTERVALS, Ri ght Bundle Branch Block - Radiology Exams Chest X-ray Interpretation: Teleradiologist Report (Increased bronchial markings otherwise chronic findings) Ordered Tests: Active Orders 24 hr Category Date Time Status Pediatrician STAT Care 06/26/23 10:46 Active EKG-ER Only STAT Care 06/26/23 10:46 Active IV Insertion STAT Care 06/26/23 10:46 Active Pulse Oximetry (ED) STAT Care 06/26/23 10:46 Active CHEST 1 VIEW (PORTABLE) Stat Exams 06/26/23 11:59 Completed BLOOD CULTURE Stat Lab 06/26/23 10:45 Received CBC W DIFF Stat Lab 06/26/23 10:45 Completed CMP Stat Lab 06/26/23 10:45 Completed D-DIMER QUANTITATIVE Stat Lab 06/26/23 10:45 Completed TROPONIN Q4H Lab 06/26/23 10:45 Completed TROPONIN Q4H Lab 06/26/23 15:00 Ordered TROPONIN Q4H Lab 06/26/23 19:00 Ordered Respiratory Therapy Assessment DAILY RT 06/26/23 10:44 Completed Transfer Order Routine Transfer 06/26/23 Ordered Medication Summary Generic Name Dose Route Start Last Admin Trade Name Freq PRN Reason Stop Dose Admin Sodium Chloride 500 mls @ 50 mls/hr 06/26/23 12:15 06/26/23 12:02 Sodium Chloride 0.9% 500 Ml IV 07/26/23 12:14 50 mls/hr .Q10H FAHEEM Administration Discontinued Medications Generic Name Dose Route Start Last Admin Trade Name Freq PRN Reason Stop Dose Admin Albuterol/Ipratropium 3 ml 06/26/23 10:44 06/26/23 10:49 Ipratropium/Albuterol Sulfate 3 Ml Ampul.Neb IH 06/26/23 10:45 3 ml STAT ONE Administration Albuterol/Ipratropium Confirm 06/26/23 10:45 Ipratropium/Albuterol Sulfate 3 Ml Ampul.Neb Administered 06/26/23 10:46 Dose 3 ml IH .STK-MED ONE Methylprednisolone Sodium 0 mg 06/26/23 10:48 06/26/23 11:59 Succinate 125 mg/ Sterile IV 06/26/23 10:49 125 mg Water 2 ml STAT ONE Administration Ceftriaxone Sodium/Dextrose 2 g in 50 mls @ 100 mls/hr 06/26/23 10:47 06/26/23 13:21 Rocephin 2 Gm-D5w 50ml Bag IV 06/26/23 11:16 Infused STAT STA Infusion Azithromycin 500 mg in 250 mls @ 250 mls/hr 06/26/23 10:47 06/26/23 12:47 Zithromax 500 Mg/ 250 Ml Nacl Premix IV 06/26/23 11:46 250 ml/hr STAT STA 250 mls/hr Administration Ceftriaxone Sodium/Dextrose Confirm 06/26/23 11:56 Rocephin 2 Gm-D5w 50ml Bag Administered 06/26/23 11:57 Dose 2 g in 50 mls @ ud IV .STK-MED ONE Sodium Chloride Confirm 06/26/23 11:56 Sodium Chloride 0.9% 500 Ml Administered 06/26/23 11:57 Dose 500 mls @ ud IV .STK-MED ONE Azithromycin Confirm 06/26/23 12:46 Zithromax 500 Mg/ 250 Ml Nacl Premix Administered 06/26/23 12:47 Dose 500 mg in 250 mls @ ud IV .STK-MED ONE Methylprednisolone Sodium Succinate Confirm 06/26/23 11:56 Methylprednis Sod Succ 125 Mg/2 Ml Vial Administered 06/26/23 11:57 Dose 125 mg .ROUTE .STK-MED ONE Sterile Water Confirm 06/26/23 11:55 Water For Injection,Sterile 10 Ml Vial Administered 06/26/23 11:56 Dose 10 ml IJ .STK-MED ONE Lab/Rad Data: Laboratory Result Diagrams 06/26/23 10:45 06/26/23 10:45 Laboratory Results 06/26/23 06/26/23 06/26/23 Range/Units 10:55 10:45 10:45 WBC (4.0-10.5) x10^3/uL RBC (4.1-5.6) x10^6/uL Hgb (12.5-18.0) g/dL Hct (42-50) % MCV (78-100) fL MCH (26-32) pg MCHC (32-36) g/dL RDW (11.5-14.0) % Plt Count (150-450) x10^3/uL MPV (7.5-11.0) fL Gran % (36.0-66.0) % Immature Gran % (Auto) (0.00-0.4) % Nucleat RBC Rel Count (0.00-0.1) % Eos # (Auto) (0-0.5) x10^3/uL Immature Gran # (Auto) (0.00-0.03) x10^3u/L Absolute Lymphs (auto) (1.0-4.6) x10^3/uL Absolute Monos (auto) (0.0-1.3) x10^3/uL Absolute Nucleated RBC (0.00-0.01) x10^3u/L Lymphocytes % (24.0-44.0) % Monocytes % (0.0-12.0) % Eosinophils % (0.00-5.0) % Basophils % (0.0-0.4) % Absolute Granulocytes (1.4-6.9) x10^3/uL Basophils # (0-0.4) x10^3/uL D-Dimer 0.46 (0.0-0.50) mg/L Sodium (137-145) mmol/L Potassium (3.5-5.1) mmol/L Chloride (98-107) mmol/L Carbon Dioxide (22-30) mmol/L Anion Gap (5-15) MEQ/L BUN (9-20) mg/dL Creatinine (0.66-1.25) mg/dL Estimated GFR ML/MIN Glucose (74-106) mg/dL Calcium (8.4-10.2) mg/dL Total Bilirubin (0.2-1.3) mg/dL AST (17-59) U/L ALT (0-50) U/L Alkaline Phosphatase (38-126) U/L Troponin I 0.020 (0.000-0.034) ng/mL Serum Total Protein (6.3-8.2) g/dL Albumin (3.5-5.0) g/dL Influenza Type A Ag NEGATIVE (NEGATIVE) Influenza Type B Ag NEGATIVE (NEGATIVE) RSV (PCR) NEGATIVE (NEGATIVE) SARS-CoV-2 (PCR) NEGATIVE (NEGATIVE) 06/26/23 06/26/23 Range/Units 10:45 10:45 WBC 15.0 H (4.0-10.5) x10^3/uL RBC 4.78 (4.1-5.6) x10^6/uL Hgb 12.8 (12.5-18.0) g/dL Hct 42.1 (42-50) % MCV 88.1 (78-100) fL MCH 26.8 (26-32) pg MCHC 30.4 L (32-36) g/dL RDW 14.5 H (11.5-14.0) % Plt Count 239 (150-450) x10^3/uL MPV 10.0 (7.5-11.0) fL Gran % 86.5 H (36.0-66.0) % Immature Gran % (Auto) 0.5 H (0.00-0.4) % Nucleat RBC Rel Count 0.0 (0.00-0.1) % Eos # (Auto) 0.02 (0-0.5) x10^3/uL Immature Gran # (Auto) 0.08 H (0.00-0.03) x10^3u/L Absolute Lymphs (auto) 0.92 L (1.0-4.6) x10^3/uL Absolute Monos (auto) 0.96 (0.0-1.3) x10^3/uL Absolute Nucleated RBC 0.00 (0.00-0.01) x10^3u/L Lymphocytes % 6.2 L (24.0-44.0) % Monocytes % 6.4 (0.0-12.0) % Eosinophils % 0.1 (0.00-5.0) % Basophils % 0.3 (0.0-0.4) % Absolute Granulocytes 12.93 H (1.4-6.9) x10^3/uL Basophils # 0.04 (0-0.4) x10^3/uL D-Dimer (0.0-0.50) mg/L Sodium 136 L (137-145) mmol/L Potassium 4.0 (3.5-5.1) mmol/L Chloride 97 L (98-107) mmol/L Carbon Dioxide 29 (22-30) mmol/L Anion Gap 13.0 (5-15) MEQ/L BUN 12 (9-20) mg/dL Creatinine 0.59 L (0.66-1.25) mg/dL Estimated GFR 100.6 ML/MIN Glucose 144 H (74-106) mg/dL Calcium 9.1 (8.4-10.2) mg/dL Total Bilirubin 1.80 H (0.2-1.3) mg/dL AST 45 (17-59) U/L ALT 34 (0-50) U/L Alkaline Phosphatase 69 (38-126) U/L Troponin I (0.000-0.034) ng/mL Serum Total Protein 7.1 (6.3-8.2) g/dL Albumin 4.0 (3.5-5.0) g/dL Influenza Type A Ag (NEGATIVE) Influenza Type B Ag (NEGATIVE) RSV (PCR) (NEGATIVE) SARS-CoV-2 (PCR) (NEGATIVE) - Progress Progress: improved Air Movement: fair Progress Note: Blood pressure is 94/52 with a MAP of 66 Patient is a 77-year-old male presents to our ED for evaluation of shortness of breath. Patient states his symptoms are similar to his previous COPD exacerbation. No associated chest pain or abdominal pain. No nausea vomiting or diaphoresis. Upon arrival to our ED patient was hypoxic. Patient received Solu-Medrol albuterol nebulized treatments and supplemental oxygen in the form of a facemask. Oxygen saturation at rest on 5 L via facemask is 95%. Patient states he feels significantly better. D-dimer negative. CBC essentially nonremarkable. Chemistry essentially nonremarkable. Chest x-ray reveals increased bronchial markings. There is a possibility that patient is experiencing a superimposed bronchitis over his COPD exacerbation. However the management is essentially the same. Influenza, RSV, COVID are all negative. Patient significantly improved clinically however he will require hospi talization for further evaluation and treatment. Case discussed with hospitalist Dr. Ivory at 1:[address] Ivory accepts admission to observation. Plan of care discussed with patient. He agrees to admission at [facility] for further evaluation and treatment. Portions of this note were created with voice recognition technology. There may be grammatical, spelling, punctuation or sound alike errors Complexity of problems addressed is high, severe exacerbation COPD with significant hypoxia. Patient's oxygenation upon arrival was in the 70s. Patient required immediate action to prevent further deterioration. Critical care time is 1 hour Complexity of data reviewed and analyzed is extensive. Test ordered test reviewed. Results analyzed and correlated clinically with history physical exam. Management discussed with hospitalist at 1:58 PM. Hospital accept admission to observation. Risk of complication and or risk of morbidity/mortality of patient management is moderate. Patient requires hospitalization for further evaluation and treatment. Blood pressure improving after administration of 250 mL aliquot boluses. Patient denies chest pain or shortness of breath. Time spent to admit patient approximately 15 minutes. Plan of care established for shared decision making. Portions of this note were created with voice recognition technology. There may be grammatical, spelling, punctuation or sound alike errors 06/26/23 14:16 Blood Culture(s) Obtained: Yes Antibiotics given: Yes Discussed with Dr.: Other (Dianelys, 1:58) Counseled pt/family regarding: lab results, diagnosis, rad results - Departure Departure Disposition: Release to OR/NEC Clinical Impression: COPD exacerbation, Hypoxia, Leukocytosis, Hypotension Condition: Stable Critical Care Time: Yes Critical Care Time(excluding separately billable procedures): Critical 30-74 mins Referrals: [facility], [NON-STAFF PHY W/O PRIVILEGES] - Follow up/PCP as directed Instructions: Chronic Obstructive Pulmonary Disease
[2023-06-26 11:22] LABS: Absolute Neutrophil Ct (ANC) 12.93 x10^3/uL (1.4-6.9); BASOPHIL % 0.3 % (0.0-0.4); Basophil (Absolute #) 0.04 x10^3/uL (0-0.4); Eosinophil % 0.1 % (0.00-5.0); Eosinophil (Absolute #) 0.02 x10^3/uL (0-0.5); Hematocrit 42.1 % (42-50); Hemoglobin 12.8 g/dL (12.5-18.0); IMMATURE GRAN # 0.08 x10^3u/L (0.00-0.03); IMMATURE GRAN % 0.5 % (0.00-0.4); Lymphocyte (Absolute #) 0.92 x10^3/uL (1.0-4.6); Lymphocytes % 6.2 % (24.0-44.0); Mean Cell Volume 88.1 fL (78-100); Mean Corpuscular Hemoglobin 26.8 pg (26-32); Mean Corpuscular Hgb Concent. 30.4 g/dL (32-36); Monocyte (Absolute #) 0.96 x10^3/uL (0.0-1.3); Monocytes % 6.4 % (0.0-12.0); Neutrophil % 86.5 % (36.0-66.0); Platelet Count 239 x10^3/uL (150-450); Red Blood Count 4.78 x10^6/uL (4.1-5.6); Red Cell Distribution Width 14.5 % (11.5-14.0)
[2023-06-26 11:36] LABS: BILIRUBIN,TOTAL 1.8 mg/dL (0.2-1.3); Calcium 9.1 mg/dL (8.4-10.2); Creatinine 1 0.59 mg/dL (0.66-1.25); EST GLOMERULAR FILTRATION RATE 100.6 ML/MIN; Total Protein 7.1 g/dL (6.3-8.2)
[2023-06-26] MEDS ORDERED: Sterile H2O 10 ml IJ ONE (11:55)
[2023-06-26] MEDS ORDERED: ROCEPHIN 2 Gm-D5w 50ML BAG** 2 G/50 ML IVPB IV ONE (11:56)
[2023-06-26] MEDS ORDERED: solu-MEDROL ONE (11:56)
[2023-06-26] MEDS ORDERED: Sodium Chloride 0.9% 500 ML 500 ML IV ONE (11:56)
[2023-06-26 11:59] LABS: INFLUENZA A NEGATIVE (NEGATIVE); INFLUENZA B NEGATIVE (NEGATIVE); RESPIRATORY SYNCTIAL VIRUS NEGATIVE (NEGATIVE); SARS-CoV-2 Xpert Express NEGATIVE (NEGATIVE)
[2023-06-26] MEDS ORDERED: Sodium Chloride 0.9% 500 ML 500 ML IV SCH (12:15)
[2023-06-26] MEDS ORDERED: Zithromax 500 MG/ 250 ML NaCl Premix 500 MG/250 ML IVPB IV ONE (12:46)
--- NOTE | 2023-06-26 12:54 | XRAY ---
CLINICAL HISTORY:sob COMPARISON:None TECHNIQUE:X-ray of the chest, PA view. FINDINGS: Bilateral mainly lower zone coarsened pulmonary interstitium more on the left. Bilateral diffuse prominent bronchial markings. No masses. Normal configuration of the mediastinum. The michelle are normal in size and position. The cardiac size is normal. Prominent aortic knuckle with curvilinear atheromatous calcifications. The bony thorax is unremarkable. The costophrenic and cardiophrenic angles are clear. IMPRESSION: Bilateral mainly lower zone coarsened pulmonary interstitium with diffuse prominent bronchial markings. Further assessment by CT scan may be considered. Prominent aortic knuckle with curvilinear atheromatous calcifications. Electronically Signed by: Macy Molina MD. (06/26/2023 12:48:57 EST)
--- NOTE | 2023-06-26 15:07 | PCM.HP ---
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 Patient states that he has had a productive cough with dark green sputum for about 2 months and over the past 2 days he has had progressively worsening shortness of breath. He endorses he has several COPD exacerbations and this is similar to previous episodes. Patient states he has been unable to perform his normal ADL's. In ED patient was tachycardic, tachypneic, afebrile, and hypotensive on arrival with spo2 @ 78% on his baseline 4L oxygen. CXR demonstrates bilateral mainly lower zone coarsened pulmonary interstitium with diffuse prominent bronchial markings. Lab findings significant for WBC at 15, Tbili at 1.8, sodium at 136 and chloride at 97. DDimer and respiratory panel negative. Patient was given fluid bolus due to hypotension, ceftriaxone/azithromycin, duonebs, and solumedrol with noted improvement. - Review of Systems Constitutional: Fatigue, Weakness Eyes: No Symptoms Ears, Nose, & Throat: No Symptoms Respiratory: Cough, Short Of Breath Cardiac: Edema Abdominal/Gastrointestinal: No Symptoms Genitourinary Symptoms: No Symptoms Musculoskeletal: No Symptoms Skin: No Symptoms Neurological: No Symptoms Psychological: No Symptoms Endocrine: No Symptoms Hematologic/Lymphatic: No Symptoms Immunological/Allergic: No Symptoms Medications & Allergies Home Medications: Home Medication List Albuterol 2.5 mg/3 ml Neb [Proventil 2.5 mg/3 ml Neb] 1 neb IH Q6H PRN 02/04/14 [History Confirmed 06/26/23] Aspirin 81 mg PO HS 02/04/14 [History Confirmed 06/26/23] Omeprazole 20 MG [Prilosec 20 mg] 20 mg PO BIDAC 02/04/14 [History Confirmed 06/26/23] Nitroglycerin 0.4 mg Tablet [Nitrostat 0.4 MG Tablet] 0.4 mg SL Q5MIN PRN MR X 3 PRN 08/01/16 [History Confirmed 06/26/23] ALPRAZolam 1 MG [Xanax 1 mg] 1 mg PO BID 10/14/18 [History Confirmed 06/26/23] Isosorbide Mononitrate 60 mg [Imdur 60MG] 60 mg PO DAILY 06/01/20 [History Confirmed 06/26/23] Metoprolol Tartrate 25 mg [Lopressor 25MG Tab] 25 mg PO BID 06/01/20 [History Confirmed 06/26/23] Rosuvastatin Calcium 20 mg PO HS 06/01/20 [History Confirmed 06/26/23] Spironolactone 25 mg [Aldactone 25 MG] 12.5 mg PO DAILY 01/25/21 [History Confirmed 06/26/23] Albuterol Sulfate [Proair Digihaler] 2 puffs IH Q6H PRN 03/24/21 [History Confirmed 06/26/23] Budesonide/Glycopyr/Formoterol [Breztri Aerosphere Inhaler] 2 puffs IH BID 03/24/21 [History Confirmed 06/26/23] Amlodipine Besylate 2.5 mg PO DAILY 06/12/21 [History Confirmed 06/26/23] Furosemide 20 mg [Lasix 20 mg] 20 mg PO DAILY 06/12/21 [History Confirmed 06/26/23] Pramipexole Di-HCl [Mirapex] 0.25 mg PO HS 06/12/21 [History Confirmed 06/26/23] Sacubitril/Valsartan [Entresto 97 mg-103 mg Tablet] 1 tab PO BID 06/12/21 [History Confirmed 06/26/23] Carboxymethylcellulose Sodium [Refresh Liquigel] 1 ml OP HS 09/25/21 [History Confirmed 06/26/23] Latanoprost [Xalatan] 1 ml OP HS 09/25/21 [History Confirmed 06/26/23] Propylene Glycol/Peg 400 [Lubricating Eye Drop] 15 ml OP QID 09/25/21 [History Confirmed 06/26/23] Theophylline Anhydrous [Theophylline ER 24Hr] 400 mg PO BID #60 11/20/21 [Rx Confirmed 06/26/23] Prednisone 5 mg [Deltasone 5 mg] 5 mg PO DAILY #33 tablet 12/18/22 [Rx Confirmed 06/26/23] Allergies/Adverse Reactions: Allergies Allergy/AdvReac Type Severity Reaction Status Date / Time nicotine [From Nicoderm CQ] Allergy Severe Rash Verified 06/26/23 14:52 - Past Medical History Past Medical History: Yes Neurological History: No Pertinent History ENT History: No Pertinent History Cardiac History: Aneurysm, Congestive Heart Failure, Hypertension Respiratory History: COPD, Sleep Apnea, Other Endocrine Medical History: Diabetes Type II Musculoskelatal History: No Pertinent History GI Medical History: No Pertinent History, GERD History: No Pertinent History Pyscho-Social History: Anxiety Male Reproductive Disorders: No Pertinent History Comment: 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 PT wears 4L O2 AT ALL TIMES - Past Surgical History Past Surgical History: Yes Neuro Surgical History: No Pertinent History Cardiac History: No Pertinent History Respiratory Surgery: Other GI Surgical History: Hernia Repair Genitourinary Surgical Hx: No Pertinent History Musculskeletal Surgical Hx: Orthopedic Surgery Male Surgical History: Vasectomy Other Surgical History: BACK SURGERY, and ear surgery and a left lung biopsy. 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, double hernia repair, - Social History Smoking Status: Former smoker How long have you smoked: 13 Exposure to second hand smoke: No Alcohol: None Drug Use: none Significant Family History: no pertinent family hx - Physical Exam Vital Signs: Vital Signs - 24 hr Temp Pulse Resp BP BP Pulse Ox 06/26/23 14:36 96 06/26/23 14:25 99 06/26/23 14:16 84 22 94/52 95 06/26/23 14:00 82 29 H 95 06/26/23 13:50 85 34 H 96 06/26/23 13:40 80 33 H 95 06/26/23 13:32 81 30 H 94 L 06/26/23 13:15 91 H 21 92/42 86 L 06/26/23 13:00 87 30 H 90/38 89 L 06/26/23 12:45 97 H 20 82/47 94 L 06/26/23 12:30 90 31 H 82/55 95 06/26/23 12:16 91 H 32 H 78/47 93 L 06/26/23 12:00 96 H 23 74/47 93 L 06/26/23 11:45 103 H 29 H 80/50 90 L 06/26/23 11:34 104 H 18 78/54 88 L 06/26/23 11:33 27 H 81/48 91 L 06/26/23 11:30 97 H 27 H 69/52 90 L 06/26/23 11:24 91 L 06/26/23 11:19 102 H 9 L 89/43 92 L 06/26/23 11:15 100 H 0 L 84/44 90 L 06/26/23 11:00 106 H 15 76/56 91 L 06/26/23 10:52 110 H 27 H 90/60 96 06/26/23 10:50 114 H 20 100 06/26/23 10:36 97.9 F 113 H 28 H 91/60 99 06/26/23 10:35 111 H 24 91/60 88 L General Appearance: no apparent distress Neurologic Exam: alert, oriented x 3, cooperative Eye Exam: PERRL/EOMI Ears, Nose, Throat Exam: normal ENT inspection Neck Exam: normal inspection Respiratory Exam: diminished breath sounds Cardiovascular Exam: regular rate/rhythm, normal heart sounds Gastrointestinal/Abdomen Exam: soft, normal bowel sounds Rectal Exam: deferred Back Exam: normal inspection Extremity Exam: pedal edema (+2) Results - Labs Lab/Micro Results: Lab Results-Last 24 Hours 06/26/23 06/26/23 06/26/23 Range/Units 10:45 10:45 10:45 WBC 15.0 H (4.0-10.5) x10^3/uL RBC 4.78 (4.1-5.6) x10^6/uL Hgb 12.8 (12.5-18.0) g/dL Hct 42.1 (42-50) % MCV 88.1 (78-100) fL MCH 26.8 (26-32) pg MCHC 30.4 L (32-36) g/dL RDW 14.5 H (11.5-14.0) % Plt Count 239 (150-450) x10^3/uL MPV 10.0 (7.5-11.0) fL Gran % 86.5 H (36.0-66.0) % Immature Gran % (Auto) 0.5 H (0.00-0.4) % Nucleat RBC Rel Count 0.0 (0.00-0.1) % Eos # (Auto) 0.02 (0-0.5) x10^3/uL Immature Gran # (Auto) 0.08 H (0.00-0.03) x10^3u/L Absolute Lymphs (auto) 0.92 L (1.0-4.6) x10^3/uL Absolute Monos (auto) 0.96 (0.0-1.3) x10^3/uL Absolute Nucleated RBC 0.00 (0.00-0.01) x10^3u/L Lymphocytes % 6.2 L (24.0-44.0) % Monocytes % 6.4 (0.0-12.0) % Eosinophils % 0.1 (0.00-5.0) % Basophils % 0.3 (0.0-0.4) % Absolute Granulocytes 12.93 H (1.4-6.9) x10^3/uL Basophils # 0.04 (0-0.4) x10^3/uL D-Dimer 0.46 (0.0-0.50) mg/L Sodium 136 L (137-145) mmol/L Potassium 4.0 (3.5-5.1) mmol/L Chloride 97 L (98-107) mmol/L Carbon Dioxide 29 (22-30) mmol/L Anion Gap 13.0 (5-15) MEQ/L BUN 12 (9-20) mg/dL Creatinine 0.59 L (0.66-1.25) mg/dL Estimated GFR 100.6 ML/MIN Glucose 144 H (74-106) mg/dL Calcium 9.1 (8.4-10.2) mg/dL Total Bilirubin 1.80 H (0.2-1.3) mg/dL AST 45 (17-59) U/L ALT 34 (0-50) U/L Alkaline Phosphatase 69 (38-126) U/L Troponin I (0.000-0.034) ng/mL Serum Total Protein 7.1 (6.3-8.2) g/dL Albumin 4.0 (3.5-5.0) g/dL Influenza Type A Ag (NEGATIVE) Influenza Type B Ag (NEGATIVE) RSV (PCR) (NEGATIVE) SARS-CoV-2 (PCR) (NEGATIVE) 06/26/23 06/26/23 Range/Units 10:45 10:55 WBC (4.0-10.5) x10^3/uL RBC (4.1-5.6) x10^6/uL Hgb (12.5-18.0) g/dL Hct (42-50) % MCV (78-100) fL MCH (26-32) pg MCHC (32-36) g/dL RDW (11.5-14.0) % Plt Count (150-450) x10^3/uL MPV (7.5-11.0) fL Gran % (36.0-66.0) % Immature Gran % (Auto) (0.00-0.4) % Nucleat RBC Rel Count (0.00-0.1) % Eos # (Auto) (0-0.5) x10^3/uL Immature Gran # (Auto) (0.00-0.03) x10^3u/L Absolute Lymphs (auto) (1.0-4.6) x10^3/uL Absolute Monos (auto) (0.0-1.3) x10^3/uL Absolute Nucleated RBC (0.00-0.01) x10^3u/L Lymphocytes % (24.0-44.0) % Monocytes % (0.0-12.0) % Eosinophils % (0.00-5.0) % Basophils % (0.0-0.4) % Absolute Granulocytes (1.4-6.9) x10^3/uL Basophils # (0-0.4) x10^3/uL D-Dimer (0.0-0.50) mg/L Sodium (137-145) mmol/L Potassium (3.5-5.1) mmol/L Chloride (98-107) mmol/L Carbon Dioxide (22-30) mmol/L Anion Gap (5-15) MEQ/L BUN (9-20) mg/dL Creatinine (0.66-1.25) mg/dL Estimated GFR ML/MIN Glucose (74-106) mg/dL Calcium (8.4-10.2) mg/dL Total Bilirubin (0.2-1.3) mg/dL AST (17-59) U/L ALT (0-50) U/L Alkaline Phosphatase (38-126) U/L Troponin I 0.020 (0.000-0.034) ng/mL Serum Total Protein (6.3-8.2) g/dL Albumin (3.5-5.0) g/dL Influenza Type A Ag NEGATIVE (NEGATIVE) Influenza Type B Ag NEGATIVE (NEGATIVE) RSV (PCR) NEGATIVE (NEGATIVE) SARS-CoV-2 (PCR) NEGATIVE (NEGATIVE) - Radiology Impressions Radiology Exams & Impressions: Radiology Procedures Category Date Time Status CHEST 1 VIEW (PORTABLE) Stat Exams 06/26/23 11:59 Completed Assessment/Plan (1) COPD exacerbation Current Visit: Yes Status: Chronic Assessment & Plan: -Patient on non-invasive ventilator at home, he does not wish to bring in, baseline 4L, currently on venit-mask -RT evaluation -Supplemental oxygen for goal of 88-92%, Bipap as needed/ABG as needed -Resp panel negative -CT with Bilateral mainly lower zone coarsened pulmonary interstitium with diffuse prominent bronchial markings. -Rocepin/azithromycin started in ED, will continue -Solumedrol 40 BID -Consider pulm consult if no improvement Code(s): J44.1 - CHRONIC OBSTRUCTIVE PULMONARY DISEASE W (ACUTE) EXACERBATION (2) Hypotension Current Visit: Yes Status: Acute Assessment & Plan: -Continue to monitor, received bolus in ED, monitor for fluid overload Code(s): I95.9 - HYPOTENSION, UNSPECIFIED (3) Leukocytosis Current Visit: Yes Status: Acute Qualifiers: Assessment & Plan: -Ceftriaxone/azithromycin, will continue to monitor Code(s): D72.829 - ELEVATED WHITE BLOOD CELL COUNT, UNSPECIFIED (4) CAD (coronary artery disease) Current Visit: No Status: Chronic Qualifiers: Coronary Disease-Associated Artery/Lesion type: [place] artery [place] vs. transplanted heart: [place] heart Associated angina: without angina Qualified Code(s): I25.10 - Atherosclerotic heart disease of [place] coronary artery without angina pectoris Assessment & Plan: -noted, continue home meds Code(s): I25.10 - ATHSCL HEART DISEASE OF [place] CORONARY ARTERY W/O ANG PCTRS (5) CHF (congestive heart failure) Current Visit: No Status: Chronic Qualifiers: Heart failure chronicity: chronic Assessment & Plan: -Pedal edema +2 pitting -Lasix 40mg BID Code(s): I50.9 - HEART FAILURE, UNSPECIFIED (6) DM2 (diabetes mellitus, type 2) Current Visit: No Status: Chronic Qualifiers: Diabetes mellitus intermediate teacher insulin use: without intermediate teacher use Diabetes mellitus complication status: without complication Qualified Code(s): E11.9 - Type 2 diabetes mellitus without complications Assessment & Plan: -Patient states he is no longer on diabetic medications per PCP, will start ADA diet, add A1c, and SSI, may need coverage due to steroids (7) GERD (gastroesophageal reflux disease) Current Visit: No Status: Chronic Qualifiers: Esophagitis presence: without esophagitis Assessment & Plan: -continue home meds Code(s): K21.9 - GASTRO-ESOPHAGEAL REFLUX DISEASE WITHOUT ESOPHAGITIS
[2023-06-26] MEDS ORDERED: DUONEB 0.5-3 MG/3 ml Neb IH PRN (15:17)
[2023-06-26] MEDS ORDERED: HUMALOG SQ PRN (15:17)
[2023-06-26] MEDS ORDERED: TYLENOL 325 MG PO PRN (15:17)
[2023-06-26] MEDS ORDERED: Zofran 4 MG/2 ML VIAL IV PRN (15:17)
[2023-06-26 15:36] LABS: MAGNESIUM 1.8 mg/dL (1.6-2.3)
[2023-06-26] MEDS ORDERED: PROVENTIL 2.5 MG/3 ML NEB IH ONE (15:45)
[2023-06-26] MEDS: PROVENTIL 2.5 MG/3 ML NEB IH SCH ×3 (15:49→22:19)
[2023-06-26 20:11] LABS: Appearance Clear (Clear); Bacteria None Seen /HPF (None Seen); Bilirubin Moderate (Negative); Blood Negative (Negative); Epithelial Cells None Seen /HPF (None Seen); Glucose, Urine Negative (Negative); Hyaline Casts NONE SEEN /LPF (0-2); Ketones 15 (Negative); Leukocyte Esterase Negative (Negative); Nitrite Negative (Negative); Protein,Urine Dip 100 (Negative); Specific Gravity >=1.030 (1.005-1.030); WBC 0-2 /HPF (0-5)
[2023-06-26 20:30] LABS: ADD URINE CULTURE? NO (NO)
[2023-06-26] MEDS: solu-MEDROL 40 MG, Sterile H2O 10 ml 1 ML IV SCH ×2 (21:50)
[2023-06-27] MEDS: PROVENTIL 2.5 MG/3 ML NEB IH SCH ×6 (02:25→22:57)
--- NOTE | 2023-06-27 05:08 | PCM.NOTE ---
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 Patient states that he has had a productive cough with dark green sputum for about 2 months and over the past 2 days he has had progressively worsening shortness of breath. He endorses he has several COPD exacerbations and this is similar to previous episodes. Patient states he has been unable to perform his normal ADL's.CXR demonstrates bilateral mainly lower zone coarsened pulmonary interstitium with diffuse prominent bronchial markings. Lab findings significant for WBC at 15, Tbili at 1.8, sodium at 136 and chloride at 97. DDimer and respiratory panel negative. Patient was given fluid bolus due to hypotension, ceftriaxone/azithromycin, duonebs, and solumedrol with noted improvement. 06/27: Met with patient bedside. Endorses continued increase in shortness of breath, especially with exertion. States cough is somewhat better. BLE peda edema improved with R>L, will change lasix dosing to once daily. 95% on oxymizer. Pulmonolgy consulted. Denies fever, cp, abdominal pain, GONSALES, dizziness, N/V/D. - Review of Systems Constitutional: No Symptoms Eyes: No Symptoms Ears, Nose, & Throat: No Symptoms Respiratory: Cough, Short Of Breath Cardiac: Edema Abdominal/Gastrointestinal: No Symptoms Genitourinary Symptoms: No Symptoms Musculoskeletal: No Symptoms Skin: No Symptoms Neurological: No Symptoms Psychological: No Symptoms Endocrine: No Symptoms Hematologic/Lymphatic: No Symptoms Immunological/Allergic: No Symptoms Objective Exam General Appearance: no apparent distress Neurologic Exam: alert, oriented x 3, cooperative Skin Exam: normal color Eye Exam: PERRL Ears, Nose, Throat Exam: moist mucous membranes Neck Exam: normal inspection Respiratory Exam: diminished breath sounds Cardiovascular Exam: regular rate/rhythm, normal heart sounds, edema (BLE R pedal edema 2+, L trace) Gastrointestinal/Abdomen Exam: soft, normal bowel sounds Extremity Exam: normal inspection Back Exam: normal inspection Male Genitalia Exam: deferred Rectal Exam: deferred OBJECTIVE DATA Vital Signs: Vital Signs - 24 hr Temp Pulse Resp BP BP Pulse Ox 06/27/23 04:00 97.5 F 101 H 23 102/64 95 06/26/23 23:41 98.0 F 92 H 28 H 94/56 98 06/26/23 22:22 89 22 93 L 06/26/23 19:29 98.6 F 93 H 24 88/59 94 L 06/26/23 18:43 91 H 20 97 06/26/23 16:06 93 L 06/26/23 16:00 97.7 F 90 18 105/62 92 L 06/26/23 15:14 86 22 92 L 06/26/23 14:57 98.0 F 85 23 97/59 93 L 06/26/23 14:36 96 06/26/23 14:25 99 06/26/23 14:16 84 22 94/52 95 06/26/23 14:00 82 29 H 95 06/26/23 13:50 85 34 H 96 06/26/23 13:40 80 33 H 95 06/26/23 13:32 81 30 H 94 L 06/26/23 13:15 91 H 21 92/42 86 L 06/26/23 13:00 87 30 H 90/38 89 L 06/26/23 12:45 97 H 20 82/47 94 L 06/26/23 12:30 90 31 H 82/55 95 06/26/23 12:16 91 H 32 H 78/47 93 L 06/26/23 12:00 96 H 23 74/47 93 L 06/26/23 11:45 103 H 29 H 80/50 90 L 06/26/23 11:34 104 H 18 78/54 88 L 06/26/23 11:33 27 H 81/48 91 L 06/26/23 11:30 97 H 27 H 69/52 90 L 06/26/23 11:24 91 L 06/26/23 11:19 102 H 9 L 89/43 92 L 06/26/23 11:15 100 H 0 L 84/44 90 L 06/26/23 11:00 106 H 15 76/56 91 L 06/26/23 10:52 110 H 27 H 90/60 96 06/26/23 10:50 114 H 20 100 06/26/23 10:36 97.9 F 113 H 28 H 91/60 99 06/26/23 10:35 111 H 24 91/60 88 L Pain Assessment - Last Documented Pain Intensity 0 Intake and Output: Intake & Output 06/24/23 06/25/23 06/26/23 06/27/23 11:59 11:59 11:59 11:59 Intake Total 1860 Output Total 326 Balance 1534 Weight 80.739 kg 82.1 kg Lab Results: Lab Results-Last 24 Hours 06/26/23 06/26/23 06/26/23 Range/Units 10:45 10:45 10:45 WBC 15.0 H (4.0-10.5) x10^3/uL RBC 4.78 (4.1-5.6) x10^6/uL Hgb 12.8 (12.5-18.0) g/dL Hct 42.1 (42-50) % MCV 88.1 (78-100) fL MCH 26.8 (26-32) pg MCHC 30.4 L (32-36) g/dL RDW 14.5 H (11.5-14.0) % Plt Count 239 (150-450) x10^3/uL MPV 10.0 (7.5-11.0) fL Gran % 86.5 H (36.0-66.0) % Immature Gran % (Auto) 0.5 H (0.00-0.4) % Nucleat RBC Rel Count 0.0 (0.00-0.1) % Eos # (Auto) 0.02 (0-0.5) x10^3/uL Immature Gran # (Auto) 0.08 H (0.00-0.03) x10^3u/L Absolute Lymphs (auto) 0.92 L (1.0-4.6) x10^3/uL Absolute Monos (auto) 0.96 (0.0-1.3) x10^3/uL Absolute Nucleated RBC 0.00 (0.00-0.01) x10^3u/L Lymphocytes % 6.2 L (24.0-44.0) % Monocytes % 6.4 (0.0-12.0) % Eosinophils % 0.1 (0.00-5.0) % Basophils % 0.3 (0.0-0.4) % Absolute Granulocytes 12.93 H (1.4-6.9) x10^3/uL Basophils # 0.04 (0-0.4) x10^3/uL D-Dimer 0.46 (0.0-0.50) mg/L Sodium 136 L (137-145) mmol/L Potassium 4.0 (3.5-5.1) mmol/L Chloride 97 L (98-107) mmol/L Carbon Dioxide 29 (22-30) mmol/L Anion Gap 13.0 (5-15) MEQ/L BUN 12 (9-20) mg/dL Creatinine 0.59 L (0.66-1.25) mg/dL Estimated GFR 100.6 ML/MIN Glucose 144 H (74-106) mg/dL POC Glucometer (74 to 106) mg/dL Hemoglobin A1c (4.5-6.0) % Calcium 9.1 (8.4-10.2) mg/dL Magnesium (1.6-2.3) mg/dL Total Bilirubin 1.80 H (0.2-1.3) mg/dL AST 45 (17-59) U/L ALT 34 (0-50) U/L Alkaline Phosphatase 69 (38-126) U/L Troponin I (0.000-0.034) ng/mL NT-Pro-B Natriuret Pep (<300) pg/mL Serum Total Protein 7.1 (6.3-8.2) g/dL Albumin 4.0 (3.5-5.0) g/dL Urine Color (Yellow) Urine Appearance (Clear) Urine pH (4.6-8.0) Ur Specific [place] (1.005-1.030) Urine Protein (Negative) Urine Glucose (UA) (Negative) mg/dL Urine Ketones (Negative) Urine Blood (Negative) Urine Nitrite (Negative) Urine Bilirubin (Negative) Urine Urobilinogen (0.2) mg/dL Ur Leukocyte Esterase (Negative) U Hyaline Cast (Auto) (0-2) /LPF Urine Microscopic RBC (0-5) /HPF Urine Microscopic WBC (0-5) /HPF Ur Epithelial Cells (None Seen) /HPF Urine Bacteria (None Seen) /HPF Urine Culture Reflexed (NO) Influenza Type A Ag (NEGATIVE) Influenza Type B Ag (NEGATIVE) RSV (PCR) (NEGATIVE) SARS-CoV-2 (PCR) (NEGATIVE) 06/26/23 06/26/23 06/26/23 Range/Units 10:45 10:45 10:55 WBC (4.0-10.5) x10^3/uL RBC (4.1-5.6) x10^6/uL Hgb (12.5-18.0) g/dL Hct (42-50) % MCV (78-100) fL MCH (26-32) pg MCHC (32-36) g/dL RDW (11.5-14.0) % Plt Count (150-450) x10^3/uL MPV (7.5-11.0) fL Gran % (36.0-66.0) % Immature Gran % (Auto) (0.00-0.4) % Nucleat RBC Rel Count (0.00-0.1) % Eos # (Auto) (0-0.5) x10^3/uL Immature Gran # (Auto) (0.00-0.03) x10^3u/L Absolute Lymphs (auto) (1.0-4.6) x10^3/uL Absolute Monos (auto) (0.0-1.3) x10^3/uL Absolute Nucleated RBC (0.00-0.01) x10^3u/L Lymphocytes % (24.0-44.0) % Monocytes % (0.0-12.0) % Eosinophils % (0.00-5.0) % Basophils % (0.0-0.4) % Absolute Granulocytes (1.4-6.9) x10^3/uL Basophils # (0-0.4) x10^3/uL D-Dimer (0.0-0.50) mg/L Sodium (137-145) mmol/L Potassium (3.5-5.1) mmol/L Chloride (98-107) mmol/L Carbon Dioxide (22-30) mmol/L Anion Gap (5-15) MEQ/L BUN (9-20) mg/dL Creatinine (0.66-1.25) mg/dL Estimated GFR ML/MIN Glucose (74-106) mg/dL POC Glucometer (74 to 106) mg/dL Hemoglobin A1c 6.19 H (4.5-6.0) % Calcium (8.4-10.2) mg/dL Magnesium (1.6-2.3) mg/dL Total Bilirubin (0.2-1.3) mg/dL AST (17-59) U/L ALT (0-50) U/L Alkaline Phosphatase (38-126) U/L Troponin I 0.020 (0.000-0.034) ng/mL NT-Pro-B Natriuret Pep (<300) pg/mL Serum Total Protein (6.3-8.2) g/dL Albumin (3.5-5.0) g/dL Urine Color (Yellow) Urine Appearance (Clear) Urine pH (4.6-8.0) Ur Specific [place] (1.005-1.030) Urine Protein (Negative) Urine Glucose (UA) (Negative) mg/dL Urine Ketones (Negative) Urine Blood (Negative) Urine Nitrite (Negative) Urine Bilirubin (Negative) Urine Urobilinogen (0.2) mg/dL Ur Leukocyte Esterase (Negative) U Hyaline Cast (Auto) (0-2) /LPF Urine Microscopic RBC (0-5) /HPF Urine Microscopic WBC (0-5) /HPF Ur Epithelial Cells (None Seen) /HPF Urine Bacteria (None Seen) /HPF Urine Culture Reflexed (NO) Influenza Type A Ag NEGATIVE (NEGATIVE) Influenza Type B Ag NEGATIVE (NEGATIVE) RSV (PCR) NEGATIVE (NEGATIVE) SARS-CoV-2 (PCR) NEGATIVE (NEGATIVE) 06/26/23 06/26/23 06/26/23 Range/Units 14:56 15:00 16:39 WBC (4.0-10.5) x10^3/uL RBC (4.1-5.6) x10^6/uL Hgb (12.5-18.0) g/dL Hct (42-50) % MCV (78-100) fL MCH (26-32) pg MCHC (32-36) g/dL RDW (11.5-14.0) % Plt Count (150-450) x10^3/uL MPV (7.5-11.0) fL Gran % (36.0-66.0) % Immature Gran % (Auto) (0.00-0.4) % Nucleat RBC Rel Count (0.00-0.1) % Eos # (Auto) (0-0.5) x10^3/uL Immature Gran # (Auto) (0.00-0.03) x10^3u/L Absolute Lymphs (auto) (1.0-4.6) x10^3/uL Absolute Monos (auto) (0.0-1.3) x10^3/uL Absolute Nucleated RBC (0.00-0.01) x10^3u/L Lymphocytes % (24.0-44.0) % Monocytes % (0.0-12.0) % Eosinophils % (0.00-5.0) % Basophils % (0.0-0.4) % Absolute Granulocytes (1.4-6.9) x10^3/uL Basophils # (0-0.4) x10^3/uL D-Dimer (0.0-0.50) mg/L Sodium (137-145) mmol/L Potassium (3.5-5.1) mmol/L Chloride (98-107) mmol/L Carbon Dioxide (22-30) mmol/L Anion Gap (5-15) MEQ/L BUN (9-20) mg/dL Creatinine (0.66-1.25) mg/dL Estimated GFR ML/MIN Glucose (74-106) mg/dL POC Glucometer 137 H (74 to 106) mg/dL Hemoglobin A1c (4.5-6.0) % Calcium (8.4-10.2) mg/dL Magnesium 1.8 (1.6-2.3) mg/dL Total Bilirubin (0.2-1.3) mg/dL AST (17-59) U/L ALT (0-50) U/L Alkaline Phosphatase (38-126) U/L Troponin I 0.030 (0.000-0.034) ng/mL NT-Pro-B Natriuret Pep 1880 (<300) pg/mL Serum Total Protein (6.3-8.2) g/dL Albumin (3.5-5.0) g/dL Urine Color (Yellow) Urine Appearance (Clear) Urine pH (4.6-8.0) Ur Specific [place] (1.005-1.030) Urine Protein (Negative) Urine Glucose (UA) (Negative) mg/dL Urine Ketones (Negative) Urine Blood (Negative) Urine Nitrite (Negative) Urine Bilirubin (Negative) Urine Urobilinogen (0.2) mg/dL Ur Leukocyte Esterase (Negative) U Hyaline Cast (Auto) (0-2) /LPF Urine Microscopic RBC (0-5) /HPF Urine Microscopic WBC (0-5) /HPF Ur Epithelial Cells (None Seen) /HPF Urine Bacteria (None Seen) /HPF Urine Culture Reflexed (NO) Influenza Type A Ag (NEGATIVE) Influenza Type B Ag (NEGATIVE) RSV (PCR) (NEGATIVE) SARS-CoV-2 (PCR) (NEGATIVE) 06/26/23 06/26/23 06/26/23 Range/Units 19:05 20:00 20:45 WBC (4.0-10.5) x10^3/uL RBC (4.1-5.6) x10^6/uL Hgb (12.5-18.0) g/dL Hct (42-50) % MCV (78-100) fL MCH (26-32) pg MCHC (32-36) g/dL RDW (11.5-14.0) % Plt Count (150-450) x10^3/uL MPV (7.5-11.0) fL Gran % (36.0-66.0) % Immature Gran % (Auto) (0.00-0.4) % Nucleat RBC Rel Count (0.00-0.1) % Eos # (Auto) (0-0.5) x10^3/uL Immature Gran # (Auto) (0.00-0.03) x10^3u/L Absolute Lymphs (auto) (1.0-4.6) x10^3/uL Absolute Monos (auto) (0.0-1.3) x10^3/uL Absolute Nucleated RBC (0.00-0.01) x10^3u/L Lymphocytes % (24.0-44.0) % Monocytes % (0.0-12.0) % Eosinophils % (0.00-5.0) % Basophils % (0.0-0.4) % Absolute Granulocytes (1.4-6.9) x10^3/uL Basophils # (0-0.4) x10^3/uL D-Dimer (0.0-0.50) mg/L Sodium (137-145) mmol/L Potassium (3.5-5.1) mmol/L Chloride (98-107) mmol/L Carbon Dioxide (22-30) mmol/L Anion Gap (5-15) MEQ/L BUN (9-20) mg/dL Creatinine (0.66-1.25) mg/dL Estimated GFR ML/MIN Glucose (74-106) mg/dL POC Glucometer 227 H (74 to 106) mg/dL Hemoglobin A1c (4.5-6.0) % Calcium (8.4-10.2) mg/dL Magnesium (1.6-2.3) mg/dL Total Bilirubin (0.2-1.3) mg/dL AST (17-59) U/L ALT (0-50) U/L Alkaline Phosphatase (38-126) U/L Troponin I 0.015 (0.000-0.034) ng/mL NT-Pro-B Natriuret Pep (<300) pg/mL Serum Total Protein (6.3-8.2) g/dL Albumin (3.5-5.0) g/dL Urine Color Dark Yellow (Yellow) Urine Appearance Clear (Clear) Urine pH 6.0 (4.6-8.0) Ur Specific [place] >=1.030 A (1.005-1.030) Urine Protein 100 A (Negative) Urine Glucose (UA) Negative (Negative) mg/dL Urine Ketones 15 A (Negative) Urine Blood Negative (Negative) Urine Nitrite Negative (Negative) Urine Bilirubin Moderate A (Negative) Urine Urobilinogen 1.0 A (0.2) mg/dL Ur Leukocyte Esterase Negative (Negative) U Hyaline Cast (Auto) NONE SEEN (0-2) /LPF Urine Microscopic RBC 3-5 (0-5) /HPF Urine Microscopic WBC 0-2 (0-5) /HPF Ur Epithelial Cells None Seen (None Seen) /HPF Urine Bacteria None Seen (None Seen) /HPF Urine Culture Reflexed NO (NO) Influenza Type A Ag (NEGATIVE) Influenza Type B Ag (NEGATIVE) RSV (PCR) (NEGATIVE) SARS-CoV-2 (PCR) (NEGATIVE) Radiology Exams: Radiology Procedures Category Date Time Status CHEST 1 VIEW (PORTABLE) Stat Exams 06/26/23 11:59 Completed Multi-Disciplinary Progress Notes: Multi-Disciplinary Progress Notes 06/26/23 13:58 Respiratory Note by Lizzie Calhoun 1310 INC TO 12LPM OXYMASK. SPO2 86-88% Initialized on 06/26/23 13:58 - END OF NOTE 06/26/23 11:07 Respiratory Note by Lizzie Calhoun PT ON 100%NRB PRIOR TO TX. DURING TX VIA MASK SPO2 STAYED 95-98%. POST TX PLACED ON 5LPM OXYMASK SPO2 93%. WILL LEAVE ON OXYMASK AT THIS TIME Initialized on 06/26/23 11:07 - END OF NOTE Assessment/Plan (1) COPD exacerbation Current Visit: Yes Status: Chronic Assessment & Plan: -Patient on non-invasive ventilator at home, he does not wish to bring in, baseline 4L, currently on venit-mask -RT evaluation -Supplemental oxygen for goal of 88-92%, Bipap as needed/ABG as needed -Resp panel negative -CT with Bilateral mainly lower zone coarsened pulmonary interstitium with diffuse prominent bronchial markings. -Rocepin/azithromycin started in ED, will continue -Solumedrol 40 BID -Consider pulm consult if no improvement 06/27/23: -Consult pulm, appreciate recs -Continue IV abx steroids/inh/nebs Code(s): J44.1 - CHRONIC OBSTRUCTIVE PULMONARY DISEASE W (ACUTE) EXACERBATION (2) Hypotension Current Visit: Yes Status: Acute Assessment & Plan: -Continue to monitor, received bolus in ED, monitor for fluid overload 06/27: -Stable Code(s): I95.9 - HYPOTENSION, UNSPECIFIED (3) Leukocytosis Current Visit: Yes Status: Acute Qualifiers: Assessment & Plan: -Ceftriaxone/azithromycin, will continue to monitor 06/27: -Resolved Code(s): D72.829 - ELEVATED WHITE BLOOD CELL COUNT, UNSPECIFIED (4) CAD (coronary artery disease) Current Visit: No Status: Chronic Qualifiers: Coronary Disease-Associated Artery/Lesion type: [place] artery [place] vs. transplanted heart: [place] heart Associated angina: without angina Qualified Code(s): I25.10 - Atherosclerotic heart disease of [place] coronary artery without angina pectoris Assessment & Plan: -noted, continue home meds Code(s): I25.10 - ATHSCL HEART DISEASE OF [place] CORONARY ARTERY W/O ANG PCTRS (5) CHF (congestive heart failure) Current Visit: No Status: Chronic Qualifiers: Heart failure chronicity: chronic Assessment & Plan: -Pedal edema +2 pitting -Lasix 40mg BID Code(s): I50.9 - HEART FAILURE, UNSPECIFIED (6) DM2 (diabetes mellitus, type 2) Current Visit: No Status: Chronic Qualifiers: Diabetes mellitus adjunct faculty for medical terminology insulin use: without adjunct faculty for medical terminology use Diabetes mellitus complication status: without complication Qualified Code(s): E11.9 - Type 2 diabetes mellitus without complications Assessment & Plan: -Patient states he is no longer on diabetic medications per PCP, will start ADA diet, add A1c, and SSI, may need coverage due to steroids (7) GERD (gastroesophageal reflux disease) Current Visit: No Status: Chronic Qualifiers: Esophagitis presence: without esophagitis Assessment & Plan: -continue home meds Code(s): K21.9 - GASTRO-ESOPHAGEAL REFLUX DISEASE WITHOUT ESOPHAGITIS Code(s): J44.1 - CHRONIC OBSTRUCTIVE PULMONARY DISEASE W (ACUTE) EXACERBATION (2) Hypotension Current Visit: Yes Status: Acute Code(s): I95.9 - HYPOTENSION, UNSPECIFIED (3) Leukocytosis Current Visit: Yes Status: Acute Qualifiers: Code(s): D72.829 - ELEVATED WHITE BLOOD CELL COUNT, UNSPECIFIED (4) CAD (coronary artery disease) Current Visit: No Status: Chronic Qualifiers: Coronary Disease-Associated Artery/Lesion type: [place] artery [place] vs. transplanted heart: [place] heart Associated angina: without angina Qualified Code(s): I25.10 - Atherosclerotic heart disease of [place] coronary artery without angina pectoris Code(s): I25.10 - ATHSCL HEART DISEASE OF [place] CORONARY ARTERY W/O ANG PCTRS (5) CHF (congestive heart failure) Current Visit: No Status: Chronic Qualifiers: Heart failure chronicity: chronic Code(s): I50.9 - HEART FAILURE, UNSPECIFIED (6) DM2 (diabetes mellitus, type 2) Current Visit: No Status: Chronic Qualifiers: Diabetes mellitus adjunct faculty for medical terminology insulin use: without prison use Diabetes mellitus complication status: without complication Qualified Code(s): E11.9 - Type 2 diabetes mellitus without complications (7) GERD (gastroesophageal reflux disease) Current Visit: No Status: Chronic Qualifiers: Esophagitis presence: without esophagitis Qualified Code(s): K21.9 - Gastro-esophageal reflux disease without esophagitis Code(s): K21.9 - GASTRO-ESOPHAGEAL REFLUX DISEASE WITHOUT ESOPHAGITIS
[2023-06-27 05:30] LABS: Absolute Neutrophil Ct (ANC) 8.42 x10^3/uL (1.4-6.9); BASOPHIL % 0.1 % (0.0-0.4); Basophil (Absolute #) 0.01 x10^3/uL (0-0.4); Eosinophil (Absolute #) 0 x10^3/uL (0-0.5); Hematocrit 41.3 % (42-50); Hemoglobin 12.5 g/dL (12.5-18.0); IMMATURE GRAN # 0.05 x10^3u/L (0.00-0.03); IMMATURE GRAN % 0.5 % (0.00-0.4); Lymphocyte (Absolute #) 0.34 x10^3/uL (1.0-4.6); Lymphocytes % 3.7 % (24.0-44.0); Mean Cell Volume 87.7 fL (78-100); Mean Corpuscular Hemoglobin 26.5 pg (26-32); Mean Corpuscular Hgb Concent. 30.3 g/dL (32-36); Mean Platelet Volume 9.8 fL (7.5-11.0); Monocyte (Absolute #) 0.28 x10^3/uL (0.0-1.3); Monocytes % 3.1 % (0.0-12.0); Neutrophil % 92.6 % (36.0-66.0); Platelet Count 247 x10^3/uL (150-450); Red Blood Count 4.71 x10^6/uL (4.1-5.6); Red Cell Distribution Width 14.5 % (11.5-14.0); White Blood Count 9.1 x10^3/uL (4.0-10.5)
[2023-06-27 06:03] LABS: ALBUMIN 3.8 g/dL (3.5-5.0); ANION GAP 9.9 MEQ/L (5-15); BILIRUBIN,TOTAL 0.7 mg/dL (0.2-1.3); Calcium 9.3 mg/dL (8.4-10.2); Creatinine 1 0.69 mg/dL (0.66-1.25); EST GLOMERULAR FILTRATION RATE 95.9 ML/MIN; Potassium 4.4 mmol/L (3.5-5.1); Total Protein 6.8 g/dL (6.3-8.2)
[2023-06-27] MEDS: PATIENT OWN MEDICATION IH SCH ×2 (06:42→20:09)
[2023-06-27 07:16] LABS: Slide Review 1 YES
[2023-06-27] MEDS: solu-MEDROL 40 MG, Sterile H2O 10 ml 1 ML IV SCH ×4 (09:17→21:53)
[2023-06-27] MEDS: ROCEPHIN 1 Gm-D5w 50 ml Bag** 1 G/50 ML IVPB IV SCH (09:18)
[2023-06-27] MEDS: ENOXAPARIN SODIUM SQ SCH (09:18)
[2023-06-27] MEDS: Zithromax 500 MG/ 250 ML NaCl Premix 500 MG/250 ML IVPB IV SCH (09:56)
[2023-06-27] MEDS ORDERED: Protonix 40MG Tablet PO SCH (10:00)
[2023-06-27] MEDS ORDERED: Lasix 40 MG/4 ML IV SCH (10:00)
[2023-06-27] MEDS ORDERED: Nitrostat 0.4 MG Tablet SL PRN (11:11)
[2023-06-27] MEDS ORDERED: MEDICATION INTERVENTION MC SCH ×2 (12:15)
[2023-06-27] MEDS ORDERED: NON-FORMULARY ITEM (Amlodipine Besylate [Amlodipine Besylate] 2.5 MG Tablet) PO SCH (13:00)
[2023-06-27] MEDS ORDERED: PEG OP SCH (13:00)
[2023-06-27] MEDS ORDERED: PROPYLENE GLYCOL OP SCH (13:00)
[2023-06-27] MEDS: ENTRESTO 49 MG-51 MG TABLET PO SCH ×2 (13:14→21:53)
[2023-06-27] MEDS: Aldactone 25 MG PO SCH (13:14)
[2023-06-27] MEDS: THEOPHYLLINE ER 24HR PO SCH ×2 (13:15→21:55)
[2023-06-27] MEDS: NORVASC 5 MG PO SCH (13:15)
[2023-06-27] MEDS: Imdur 60MG PO SCH (13:15)
[2023-06-27] MEDS: Lopressor 25MG Tab PO SCH ×2 (13:15→22:00)
[2023-06-27] MEDS ORDERED: LASIX 20 MG PO ONE (14:30)
[2023-06-27] MEDS: AFRIN NASAL SPRAY NS SCH ×2 (14:31→22:05)
--- NOTE | 2023-06-27 14:39 | CONS ---
CONSULT DATE: 06/27/2023 REASON FOR CONSULT: Evaluation of chronic obstructive pulmonary disease, shortness of breath. HISTORY: Nas Vance is a 77-year-old male with history of chronic obstructive pulmonary disease who has been admitted to [facility] with worsening shortness of breath. The patient reportedly had increased cough with thick expectoration green in color. He presented to the emergency room where he was noted to have increased oxygen requirement. He usually runs 2 to 3 liters but has been requiring high flow rates. He has been started on IV antibiotics, steroids and does report clinical improvement. At the time of my evaluation, the patient appears comfortable. He is able to carry out a conversation. He does report feeling better. PAST MEDICAL HISTORY: Positive for chronic obstructive pulmonary disease, chronic hypoxic respiratory failure, history of coronary artery disease, hypertension, diabetes and back pain. PAST SURGICAL HISTORY: Back surgery. Question of lung biopsy. PERSONAL AND SOCIAL HISTORY: He is a former smoker. He quit smoking 14 years ago. MEDICATIONS: Home and current medications are reviewed. ALLERGIES: NICOTINE FROM M2G. PHYSICAL EXAMINATION: An elderly male able to carry out a conversation. Vital signs noted. HEENT: Normocephalic. Oral exam limited. CVS: First and second heart sounds are normal, regular, rhythmic. RESPIRATORY: Shows increase in AP diameter, diminished breath sounds, bilateral rhonchi heard. ABDOMEN: Soft. EXTREMITIES: Trace edema is noted. LABORATORY DATA AND TESTS: Labs, x-rays reviewed. ASSESSMENT: This is a 77-year old male admitted with: 1) Acute on chronic hypoxic respiratory failure. 2) Chronic obstructive pulmonary disease with exacerbation. 3) Acute bronchitis, question left lower lobe pneumonia. 4) Prior history of nicotine addiction and comorbidities as listed above. RECOMMENDATIONS: 1) I agree with current treatment. 2) Would benefit from increased dose of steroids. 3) Continue bronchodilator. 4) Continue to wean supplemental oxygen once pulmonary gas exchange improves. 5) Will obtain CT chest as recommended by radiologist. 6) Advised to follow up with his own senior telecommunications specialist upon discharge.
[2023-06-27] MEDS ORDERED: NON-FORMULARY ITEM (Omeprazole 20 Mg [Prilosec 20 Mg] 20 MG Capsule.Dr) PO SCH (16:30)
[2023-06-27] MEDS: Protonix 40MG Tablet PO SCH (16:42)
[2023-06-27] MEDS: Flonase NASAL NS SCH (21:50)
[2023-06-27] MEDS: ECOTRIN 81 MG PO SCH (21:51)
[2023-06-27] MEDS: Mirapex 0.5 MG Tablet PO SCH (21:51)
[2023-06-27] MEDS: ZOCOR 20MG PO SCH (21:52)
[2023-06-27] MEDS: Xalatan OP SCH (21:55)
[2023-06-27] MEDS ORDERED: PRAMIPEXOLE DI HCL 0.25 MG PO SCH (22:00)
[2023-06-27] MEDS ORDERED: NON-FORMULARY ITEM (Aspirin [Aspirin] 81 MG Tablet) PO SCH (22:00)
[2023-06-27] MEDS ORDERED: NON-FORMULARY ITEM (Rosuvastatin Calcium [Rosuvastatin Calcium] 20 MG Tablet) PO SCH (22:00)
[2023-06-27] MEDS ORDERED: NON-FORMULARY ITEM (Budesonide/Glycopyr/Formoterol [Breztri Aerosphere Inhaler] 10.7 GM Hf IH SCH (22:00)
[2023-06-27] MEDS ORDERED: NON-FORMULARY ITEM (Sacubitril/Valsartan [Entresto 97 Mg-103 Mg Tablet] 1 EACH Tablet) PO SCH (22:00)
[2023-06-27] MEDS ORDERED: CARBOXYMETHYLCELLULOSE SODIUM OP SCH (22:00)
--- NOTE | 2023-06-28 00:12 | XRAY ---
CLINICAL HISTORY:EXAC COPD,HYPOXIA,,SOB COMPARISON:CR chest was reviewed, dated: 06/26/2023. TECHNIQUE:Contiguous 3.[address] images of the chest were acquired with contrast. Coronal and sagittal reconstructions were obtained. FINDINGS: Extensive centrilobular emphysematous changes were noted in bilateral lung vergara. Mild fibrocalcific changes were noted in the left upper lobe. Mild basal atelectatic changes were noted on the right side. No free or encysted pleural effusion. The thoracic aorta shows atherosclerotic changes with calcified plaques. Heart size is normal, and there is no pericardial effusion. No pathologically enlarged mediastinal, hilar, or axillary lymph node was identified. The thoracic spine shows degenerative changes. There is no definite mass lesion in the chest wall. The scanned upper abdomen is unremarkable. IMPRESSION: 1. Advanced chronic obstructive pulmonary disease COPD. 2. Mild fibrocalcific changes in the left upper lobe, sequelae to the previous infection. Electronically Signed by: Macy Molina MD. (06/28/2023 00:07:37 EST)
[2023-06-28] MEDS: PROVENTIL 2.5 MG/3 ML NEB IH SCH ×6 (02:22→22:34)
[2023-06-28 05:07] LABS: Absolute Neutrophil Ct (ANC) 13.33 x10^3/uL (1.4-6.9); BASOPHIL % 0.1 % (0.0-0.4); Basophil (Absolute #) 0.02 x10^3/uL (0-0.4); Eosinophil % 0.1 % (0.00-5.0); Eosinophil (Absolute #) 0.02 x10^3/uL (0-0.5); Hematocrit 42.4 % (42-50); IMMATURE GRAN # 0.09 x10^3u/L (0.00-0.03); IMMATURE GRAN % 0.6 % (0.00-0.4); Lymphocyte (Absolute #) 0.62 x10^3/uL (1.0-4.6); Lymphocytes % 4.3 % (24.0-44.0); Mean Cell Volume 85.7 fL (78-100); Mean Corpuscular Hemoglobin 26.3 pg (26-32); Mean Corpuscular Hgb Concent. 30.7 g/dL (32-36); Mean Platelet Volume 10.2 fL (7.5-11.0); Monocyte (Absolute #) 0.41 x10^3/uL (0.0-1.3); Monocytes % 2.8 % (0.0-12.0); Neutrophil % 92.1 % (36.0-66.0); Platelet Count 345 x10^3/uL (150-450); Red Blood Count 4.95 x10^6/uL (4.1-5.6); Red Cell Distribution Width 14.6 % (11.5-14.0); White Blood Count 14.5 x10^3/uL (4.0-10.5)
--- NOTE | 2023-06-28 05:15 | PCM.NOTE ---
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 Patient states that he has had a productive cough with dark green sputum for about 2 months and over the past 2 days he has had progressively worsening shortness of breath. He endorses he has several COPD exacerbations and this is similar to previous episodes. Patient states he has been unable to perform his normal ADL's.CXR demonstrates bilateral mainly lower zone coarsened pulmonary interstitium with diffuse prominent bronchial markings. Lab findings significant for WBC at 15, Tbili at 1.8, sodium at 136 and chloride at 97. DDimer and respiratory panel negative. Patient was given fluid bolus due to hypotension, ceftriaxone/azithromycin, duonebs, and solumedrol with noted improvement. 06/27: Met with patient bedside. Endorses continued increase in shortness of breath, especially with exertion. States cough is somewhat better. BLE peda edema improved with R>L, will change lasix dosing to once daily. 95% on oxymizer. Pulmonolgy consulted. Denies fever, cp, abdominal pain, GONSALES, dizziness, N/V/D. 06/28: Met with patient bedside. Endorses improvement overall of shortness of breath and cough but not at baseline. Has c/o PND and loose, and loose watery stools greater than three times a day. Discussed CT results with patient demonstrating known COPD and mild fibrocalcific changes in his [place]. Patient requesting Flonase, will add claritin. Stool studies ordered. - Review of Systems Constitutional: Fatigue Eyes: No Symptoms Ears, Nose, & Throat: Sinus Drainage Respiratory: Cough, Short Of Breath Cardiac: Edema Abdominal/Gastrointestinal: Diarrhea Genitourinary Symptoms: No Symptoms Musculoskeletal: No Symptoms Skin: No Symptoms Neurological: No Symptoms Psychological: No Symptoms Endocrine: No Symptoms Hematologic/Lymphatic: No Symptoms Objective Exam General Appearance: no apparent distress Neurologic Exam: alert, oriented x 3, cooperative Skin Exam: pale Eye Exam: PERRL Ears, Nose, Throat Exam: moist mucous membranes Neck Exam: normal inspection Respiratory Exam: diminished breath sounds Cardiovascular Exam: regular rate/rhythm, normal heart sounds Gastrointestinal/Abdomen Exam: soft, normal bowel sounds Extremity Exam: normal inspection Back Exam: normal inspection OBJECTIVE DATA Vital Signs: Vital Signs - 24 hr Temp Pulse Resp BP Pulse Ox 06/28/23 04:00 97.8 F 103 H 25 H 115/63 95 06/28/23 02:24 101 H 22 91 L 06/27/23 23:54 98.2 F 78 23 112/60 91 L 06/27/23 22:58 81 22 91 L 06/27/23 20:09 88 22 92 L 06/27/23 20:00 98.4 F 60 24 100/58 92 L 06/27/23 15:43 93 L 06/27/23 15:28 97.7 F 110 H 25 H 145/72 92 L 06/27/23 14:30 70 22 100 06/27/23 11:42 97.6 F 102 H 23 122/59 95 06/27/23 10:41 99 H 20 95 06/27/23 07:10 97.6 F 112 H 24 117/73 90 L 06/27/23 06:31 56 L 22 99 Pain Assessment - Last Documented Pain Intensity 0 Intake and Output: Intake & Output 06/25/23 06/26/23 06/27/23 06/28/23 11:59 11:59 11:59 11:59 Intake Total 2440 1920 Output Total 326 2000 Balance 2114 -80 Weight 80.739 kg 82.1 kg Lab Results: Lab Results-Last 24 Hours 06/27/23 06/27/23 06/27/23 Range/Units 05:05 05:05 07:21 WBC 9.1 (4.0-10.5) x10^3/uL RBC 4.71 (4.1-5.6) x10^6/uL Hgb 12.5 (12.5-18.0) g/dL Hct 41.3 L (42-50) % MCV 87.7 (78-100) fL MCH 26.5 (26-32) pg MCHC 30.3 L (32-36) g/dL RDW 14.5 H (11.5-14.0) % Plt Count 247 (150-450) x10^3/uL MPV 9.8 (7.5-11.0) fL Gran % 92.6 H (36.0-66.0) % Immature Gran % (Auto) 0.5 H (0.00-0.4) % Nucleat RBC Rel Count 0.0 (0.00-0.1) % Eos # (Auto) 0 (0-0.5) x10^3/uL Immature Gran # (Auto) 0.05 H (0.00-0.03) x10^3u/L Absolute Lymphs (auto) 0.34 L (1.0-4.6) x10^3/uL Absolute Monos (auto) 0.28 (0.0-1.3) x10^3/uL Absolute Nucleated RBC 0.00 (0.00-0.01) x10^3u/L Lymphocytes % 3.7 L (24.0-44.0) % Monocytes % 3.1 (0.0-12.0) % Eosinophils % 0.0 (0.00-5.0) % Basophils % 0.1 (0.0-0.4) % Absolute Granulocytes 8.42 H (1.4-6.9) x10^3/uL Basophils # 0.01 (0-0.4) x10^3/uL Sodium 133 L (137-145) mmol/L Potassium 4.4 (3.5-5.1) mmol/L Chloride 95 L (98-107) mmol/L Carbon Dioxide 32 H (22-30) mmol/L Anion Gap 9.9 (5-15) MEQ/L BUN 15 (9-20) mg/dL Creatinine 0.69 (0.66-1.25) mg/dL Estimated GFR 95.9 ML/MIN Glucose 197 H (74-106) mg/dL POC Glucometer 163 H (74 to 106) mg/dL Calcium 9.3 (8.4-10.2) mg/dL Total Bilirubin 0.70 (0.2-1.3) mg/dL AST 27 (17-59) U/L ALT 31 (0-50) U/L Alkaline Phosphatase 66 (38-126) U/L Serum Total Protein 6.8 (6.3-8.2) g/dL Albumin 3.8 (3.5-5.0) g/dL Slides for Path Review YES 06/27/23 06/27/23 06/27/23 Range/Units 11:31 16:05 20:47 WBC (4.0-10.5) x10^3/uL RBC (4.1-5.6) x10^6/uL Hgb (12.5-18.0) g/dL Hct (42-50) % MCV (78-100) fL MCH (26-32) pg MCHC (32-36) g/dL RDW (11.5-14.0) % Plt Count (150-450) x10^3/uL MPV (7.5-11.0) fL Gran % (36.0-66.0) % Immature Gran % (Auto) (0.00-0.4) % Nucleat RBC Rel Count (0.00-0.1) % Eos # (Auto) (0-0.5) x10^3/uL Immature Gran # (Auto) (0.00-0.03) x10^3u/L Absolute Lymphs (auto) (1.0-4.6) x10^3/uL Absolute Monos (auto) (0.0-1.3) x10^3/uL Absolute Nucleated RBC (0.00-0.01) x10^3u/L Lymphocytes % (24.0-44.0) % Monocytes % (0.0-12.0) % Eosinophils % (0.00-5.0) % Basophils % (0.0-0.4) % Absolute Granulocytes (1.4-6.9) x10^3/uL Basophils # (0-0.4) x10^3/uL Sodium (137-145) mmol/L Potassium (3.5-5.1) mmol/L Chloride (98-107) mmol/L Carbon Dioxide (22-30) mmol/L Anion Gap (5-15) MEQ/L BUN (9-20) mg/dL Creatinine (0.66-1.25) mg/dL Estimated GFR ML/MIN Glucose (74-106) mg/dL POC Glucometer 150 H 151 H 108 H (74 to 106) mg/dL Calcium (8.4-10.2) mg/dL Total Bilirubin (0.2-1.3) mg/dL AST (17-59) U/L ALT (0-50) U/L Alkaline Phosphatase (38-126) U/L Serum Total Protein (6.3-8.2) g/dL Albumin (3.5-5.0) g/dL Slides for Path Review Radiology Exams: Radiology Procedures Category Date Time Status CHEST 1 VIEW (PORTABLE) Stat Exams 06/26/23 11:59 Completed CHEST WITHOUT CONTRAST [CT] Routine Exams 06/27/23 14:14 Completed Multi-Disciplinary Progress Notes: Multi-Disciplinary Progress Notes 06/27/23 16:07 Occupational Therapy Note by Stephanie Lee Chart review completed, OT will hold evaluation at this time as patient continu es with O2 desat upon exertion. OT will follow up on next date pending patient appropriateness. Initialized on 06/27/23 16:07 - END OF NOTE 06/27/23 10:37 Case Management Note by Gloria Friend REFERRAL FAXED TO [facility] PER REQUEST. THEY WILL NEED NOTIFIED AT TIME OF DC AT [phone]. THEY WILL NEED FAXED THE DC INSTRUCTIONS, DC MED LIST AND DC SUMMARY TO [phone] Initialized on 06/27/23 10:37 - END OF NOTE 06/27/23 07:00 Respiratory Note by Alis Lanier PT'S O2 SAT ON 6LPM VIA OXYMIZER WHILE UP TO THE BATHROOM DROPPED TO 78%. OXYGEN WAS INCREASED BACK TO 10LPM VIA OXYMIZER AND O2 SAT INCREASED TO 87%. OXYGEN WAS THEN INCREASED TO 12LPM VIA OXYMIZER AND O2 SAT INCREASED TO 94%. Initialized on 06/27/23 07:00 - END OF NOTE Assessment/Plan (1) COPD exacerbation Current Visit: Yes Status: Chronic Assessment & Plan: -Patient on non-invasive ventilator at home, he does not wish to bring in, baseline 4L, currently on venit-mask -RT evaluation -Supplemental oxygen for goal of 88-92%, Bipap as needed/ABG as needed -Resp panel negative -Cxr with Bilateral mainly lower zone coarsened pulmonary interstitium with diffuse prominent bronchial markings. -Rocepin/azithromycin started in ED, will continue -Solumedrol 40 BID -Consider pulm consult if no improvement 06/27/23: -Consult pulm, appreciate recs -Continue IV abx steroids/inh/nebs 06/28: -Pulm with recs to increase steroids to TID -CT showing Advanced chronic obstructive pulmonary disease COPD. 2. Mild fibrocalcific changes in the left upper lobe, sequelae to the previous infection -Continue abx/steroids/inh/nebs Code(s): J44.1 - CHRONIC OBSTRUCTIVE PULMONARY DISEASE W (ACUTE) EXACERBATION (2) Hypotension Current Visit: Yes Status: Acute Assessment & Plan: -Continue to monitor, received bolus in ED, monitor for fluid overload 06/27: -Stable Code(s): I95.9 - HYPOTENSION, UNSPECIFIED (3) Leukocytosis Current Visit: Yes Status: Acute Qualifiers: Assessment & Plan: -Ceftriaxone/azithromycin, will continue to monitor 06/27: -Resolved Code(s): D72.829 - ELEVATED WHITE BLOOD CELL COUNT, UNSPECIFIED (4) CAD (coronary artery disease) Current Visit: No Status: Chronic Qualifiers: Coronary Disease-Associated Artery/Lesion type: [place] artery [place] vs. transplanted heart: [place] heart Associated angina: without angina Qualified Code(s): I25.10 - Atherosclerotic heart disease of [place] coronary artery without angina pectoris Assessment & Plan: -noted, continue home meds Code(s): I25.10 - ATHSCL HEART DISEASE OF [place] CORONARY ARTERY W/O ANG PCTRS (5) CHF (congestive heart failure) Current Visit: No Status: Chronic Qualifiers: Heart failure chronicity: chronic Assessment & Plan: -Pedal edema +2 pitting -Lasix 40mg BID 06/28: -Patient euvolemic, will continue with home dose of diurectics Code(s): I50.9 - HEART FAILURE, UNSPECIFIED (6) DM2 (diabetes mellitus, type 2) Current Visit: No Status: Chronic Qualifiers: Diabetes mellitus residential insulin use: without residential use Diabetes mellitus complication status: without complication Qualified Code(s): E11.9 - Type 2 diabetes mellitus without complications Assessment & Plan: -Patient states he is no longer on diabetic medications per PCP, will start ADA diet, add A1c, and SSI, may need coverage due to steroids (7) GERD (gastroesophageal reflux disease) Current Visit: No Status: Chronic Qualifiers: Esophagitis presence: without esophagitis Assessment & Plan: -continue home meds Code(s): K21.9 - GASTRO-ESOPHAGEAL REFLUX DISEASE WITHOUT ESOPHAGITIS Code(s): J44.1 - CHRONIC OBSTRUCTIVE PULMONARY DISEASE W (ACUT Code(s): J44.1 - CHRONIC OBSTRUCTIVE PULMONARY DISEASE W (ACUTE) EXACERBATION (2) Hypotension Current Visit: Yes Status: Acute Code(s): I95.9 - HYPOTENSION, UNSPECIFIED (3) Leukocytosis Current Visit: Yes Status: Acute Qualifiers: Code(s): D72.829 - ELEVATED WHITE BLOOD CELL COUNT, UNSPECIFIED (4) CAD (coronary artery disease) Current Visit: No Status: Chronic Qualifiers: Coronary Disease-Associated Artery/Lesion type: [place] artery [place] vs. transplanted heart: [place] heart Associated angina: without angina Qualified Code(s): I25.10 - Atherosclerotic heart disease of [place] coronary artery without angina pectoris Code(s): I25.10 - ATHSCL HEART DISEASE OF [place] CORONARY ARTERY W/O ANG PCTRS (5) CHF (congestive heart failure) Current Visit: No Status: Chronic Qualifiers: Heart failure chronicity: chronic Code(s): I50.9 - HEART FAILURE, UNSPECIFIED (6) DM2 (diabetes mellitus, type 2) Current Visit: No Status: Chronic Qualifiers: Diabetes mellitus terminal worker insulin use: without residential use Diabetes mellitus complication status: without complication Qualified Code(s): E11.9 - Type 2 diabetes mellitus without complications (7) GERD (gastroesophageal reflux disease) Current Visit: No Status: Chronic Qualifiers: Esophagitis presence: without esophagitis Qualified Code(s): K21.9 - [place]iel ro-esophageal reflux disease without esophagitis Code(s): K21.9 - GASTRO-ESOPHAGEAL REFLUX DISEASE WITHOUT ESOPHAGITIS
[2023-06-28 05:27] LABS: ALBUMIN 4.2 g/dL (3.5-5.0); BILIRUBIN,TOTAL 0.7 mg/dL (0.2-1.3); Calcium 9.7 mg/dL (8.4-10.2); Creatinine 1 0.65 mg/dL (0.66-1.25); EST GLOMERULAR FILTRATION RATE 97.7 ML/MIN; Potassium 3.9 mmol/L (3.5-5.1); Total Protein 7.3 g/dL (6.3-8.2)
[2023-06-28] MEDS ORDERED: solu-MEDROL ONE (05:56)
[2023-06-28] MEDS: solu-MEDROL 40 MG, Sterile H2O 10 ml 1 ML IV SCH ×6 (06:08→22:13)
[2023-06-28] MEDS: PATIENT OWN MEDICATION IH SCH ×2 (06:44→19:09)
[2023-06-28] MEDS: Protonix 40MG Tablet PO SCH ×2 (08:10→16:29)
[2023-06-28] MEDS: ROCEPHIN 1 Gm-D5w 50 ml Bag** 1 G/50 ML IVPB IV SCH (09:53)
[2023-06-28] MEDS: Lopressor 25MG Tab PO SCH ×2 (09:54→22:13)
[2023-06-28] MEDS: Aldactone 25 MG PO SCH (09:54)
[2023-06-28] MEDS: LASIX 20 MG PO SCH (09:54)
[2023-06-28] MEDS: NORVASC 5 MG PO SCH (09:54)
[2023-06-28] MEDS: ENOXAPARIN SODIUM SQ SCH (09:54)
[2023-06-28] MEDS: CLARITIN 10 MG PO SCH (09:54)
[2023-06-28] MEDS: Imdur 60MG PO SCH (09:54)
[2023-06-28] MEDS: THEOPHYLLINE ER 24HR PO SCH ×2 (09:55→22:14)
[2023-06-28] MEDS ORDERED: LASIX 20 MG PO SCH (10:00)
[2023-06-28] MEDS: ENTRESTO 49 MG-51 MG TABLET PO SCH ×2 (10:37→22:13)
[2023-06-28] MEDS: Zithromax 500 MG/ 250 ML NaCl Premix 500 MG/250 ML IVPB IV SCH (10:37)
[2023-06-28 12:42] LABS: 027 TOX PROD PRESUMPTIVE NEGATIVE (NEGATIVE); TOXIGENIC C. DIFF ORG NEGATIVE (NEGATIVE)
[2023-06-28] MEDS: ECOTRIN 81 MG PO SCH (22:12)
[2023-06-28] MEDS: Mirapex 0.5 MG Tablet PO SCH (22:12)
[2023-06-28] MEDS: ZOCOR 20MG PO SCH (22:13)
[2023-06-28] MEDS: Flonase NASAL NS SCH (22:13)
[2023-06-28] MEDS: Xalatan OP SCH (22:14)
[2023-06-29] MEDS: PROVENTIL 2.5 MG/3 ML NEB IH SCH ×6 (03:12→22:35)
[2023-06-29 04:52] LABS: Absolute Neutrophil Ct (ANC) 5.78 x10^3/uL (1.4-6.9); BASOPHIL % 0.2 % (0.0-0.4); Basophil (Absolute #) 0.01 x10^3/uL (0-0.4); Eosinophil (Absolute #) 0 x10^3/uL (0-0.5); Hematocrit 38.2 % (42-50); IMMATURE GRAN # 0.04 x10^3u/L (0.00-0.03); IMMATURE GRAN % 0.6 % (0.00-0.4); Lymphocyte (Absolute #) 0.47 x10^3/uL (1.0-4.6); Lymphocytes % 7.2 % (24.0-44.0); Mean Cell Volume 86.2 fL (78-100); Mean Corpuscular Hemoglobin 27.1 pg (26-32); Mean Corpuscular Hgb Concent. 31.4 g/dL (32-36); Mean Platelet Volume 9.5 fL (7.5-11.0); Monocyte (Absolute #) 0.27 x10^3/uL (0.0-1.3); Monocytes % 4.1 % (0.0-12.0); Neutrophil % 87.9 % (36.0-66.0); Platelet Count 260 x10^3/uL (150-450); Red Blood Count 4.43 x10^6/uL (4.1-5.6); Red Cell Distribution Width 14.5 % (11.5-14.0); White Blood Count 6.6 x10^3/uL (4.0-10.5)
--- NOTE | 2023-06-29 05:01 | PCM.NOTE ---
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 Patient states that he has had a productive cough with dark green sputum for about 2 months and over the past 2 days he has had progressively worsening shortness of breath. He endorses he has several COPD exacerbations and this is similar to previous episodes. Patient states he has been unable to perform his normal ADL's.CXR demonstrates bilateral mainly lower zone coarsened pulmonary interstitium with diffuse prominent bronchial markings. Lab findings significant for WBC at 15, Tbili at 1.8, sodium at 136 and chloride at 97. DDimer and respiratory panel negative. Patient was given fluid bolus due to hypotension, ceftriaxone/azithromycin, duonebs, and solumedrol with noted improvement. 06/27: Met with patient bedside. Endorses continued increase in shortness of breath, especially with exertion. States cough is somewhat better. BLE peda edema improved with R>L, will change lasix dosing to once daily. 95% on oxymizer. Pulmonolgy consulted. Denies fever, cp, abdominal pain, GONSALES, dizziness, N/V/D. 06/28: Met with patient bedside. Endorses improvement overall of shortness of breath and cough but not at baseline. Has c/o PND and loose, and loose watery stools greater than three times a day. Discussed CT results with patient demonstrating known COPD and mild fibrocalcific changes in his LAUREEN. Patient requesting Flonase, will add claritin. Stool studies ordered. 06/29: No overnight events noted. Patient endorses improvement overnight with shortness of breath, cough, and diarrhea. Lung with improved aeration on auscultation. Plan is to continue current management, possible discharge tomorrow if he continues to improve. - Review of Systems Constitutional: No Symptoms Eyes: No Symptoms Ears, Nose, & Throat: No Symptoms Respiratory: Cough, Short Of Breath Cardiac: Edema (BLE R>L) Abdominal/Gastrointestinal: Diarrhea (improved) Genitourinary Symptoms: No Symptoms Musculoskeletal: No Symptoms Skin: No Symptoms Neurological: No Symptoms Psychological: No Symptoms Endocrine: No Symptoms Hematologic/Lymphatic: No Symptoms Objective Exam General Appearance: no apparent distress Neurologic Exam: alert, oriented x 3, cooperative Skin Exam: normal color Eye Exam: PERRL Ears, Nose, Throat Exam: normal ENT inspection Neck Exam: normal inspection Respiratory Exam: diminished breath sounds Cardiovascular Exam: regular rate/rhythm, normal heart sounds Gastrointestinal/Abdomen Exam: soft, normal bowel sounds Extremity Exam: pedal edema (R>L) Back Exam: normal inspection OBJECTIVE DATA Vital Signs: Vital Signs - 24 hr Temp Pulse Resp BP Pulse Ox 06/29/23 04:00 98.3 F 96 H 22 122/75 92 L 06/29/23 03:13 92 H 18 92 L 06/28/23 23:45 98.1 F 97 H 22 111/63 92 L 06/28/23 22:34 99 H 20 92 L 06/28/23 19:55 98.4 F 91 H 22 112/64 95 06/28/23 19:10 92 H 20 93 L 06/28/23 16:00 97.7 F 101 H 20 105/63 95 06/28/23 14:50 88 20 93 L 06/28/23 11:46 97.3 F 84 19 92/56 93 L 06/28/23 10:42 93 H 20 93 L 06/28/23 09:55 96 06/28/23 08:55 98 06/28/23 07:53 93 L 06/28/23 06:49 98.4 F 112 H 20 113/62 91 L 06/28/23 06:38 87 L Pain Assessment - Last Documented Pain Intensity 0 Intake and Output: Intake & Output 06/26/23 06/27/23 06/28/23 06/29/23 11:59 11:59 11:59 11:59 Intake Total 2440 2160 1560 Output Total 326 2000 Balance 2114 160 1560 Weight 80.739 kg 82.1 kg Lab Results: Lab Results-Last 24 Hours 06/28/23 06/28/23 06/28/23 Range/Units 04:24 04:24 06:32 WBC 14.5 H (4.0-10.5) x10^3/uL RBC 4.95 (4.1-5.6) x10^6/uL Hgb 13.0 (12.5-18.0) g/dL Hct 42.4 (42-50) % MCV 85.7 (78-100) fL MCH 26.3 (26-32) pg MCHC 30.7 L (32-36) g/dL RDW 14.6 H (11.5-14.0) % Plt Count 345 D (150-450) x10^3/uL MPV 10.2 (7.5-11.0) fL Gran % 92.1 H (36.0-66.0) % Immature Gran % (Auto) 0.6 H (0.00-0.4) % Nucleat RBC Rel Count 0.0 (0.00-0.1) % Eos # (Auto) 0.02 (0-0.5) x10^3/uL Immature Gran # (Auto) 0.09 H (0.00-0.03) x10^3u/L Absolute Lymphs (auto) 0.62 L (1.0-4.6) x10^3/uL Absolute Monos (auto) 0.41 (0.0-1.3) x10^3/uL Absolute Nucleated RBC 0.00 (0.00-0.01) x10^3u/L Lymphocytes % 4.3 L (24.0-44.0) % Monocytes % 2.8 (0.0-12.0) % Eosinophils % 0.1 (0.00-5.0) % Basophils % 0.1 (0.0-0.4) % Absolute Granulocytes 13.33 H (1.4-6.9) x10^3/uL Basophils # 0.02 (0-0.4) x10^3/uL Sodium 137 (137-145) mmol/L Potassium 3.9 (3.5-5.1) mmol/L Chloride 96 L (98-107) mmol/L Carbon Dioxide 30 (22-30) mmol/L Anion Gap 15.0 (5-15) MEQ/L BUN 11 (9-20) mg/dL Creatinine 0.65 L (0.66-1.25) mg/dL Estimated GFR 97.7 ML/MIN Glucose 145 H (74-106) mg/dL POC Glucometer 110 H (74 to 106) mg/dL Calcium 9.7 (8.4-10.2) mg/dL Total Bilirubin 0.70 (0.2-1.3) mg/dL AST 35 (17-59) U/L ALT 39 (0-50) U/L Alkaline Phosphatase 68 (38-126) U/L Serum Total Protein 7.3 (6.3-8.2) g/dL Albumin 4.2 (3.5-5.0) g/dL C. difficile Screen (NEGATIVE) C.difficile 027-NAP1-B1 (NEGATIVE) 06/28/23 06/28/23 06/28/23 Range/Units 11:36 11:55 16:20 WBC (4.0-10.5) x10^3/uL RBC (4.1-5.6) x10^6/uL Hgb (12.5-18.0) g/dL Hct (42-50) % MCV (78-100) fL MCH (26-32) pg MCHC (32-36) g/dL RDW (11.5-14.0) % Plt Count (150-450) x10^3/uL MPV (7.5-11.0) fL Gran % (36.0-66.0) % Immature Gran % (Auto) (0.00-0.4) % Nucleat RBC Rel Count (0.00-0.1) % Eos # (Auto) (0-0.5) x10^3/uL Immature Gran # (Auto) (0.00-0.03) x10^3u/L Absolute Lymphs (auto) (1.0-4.6) x10^3/uL Absolute Monos (auto) (0.0-1.3) x10^3/uL Absolute Nucleated RBC (0.00-0.01) x10^3u/L Lymphocytes % (24.0-44.0) % Monocytes % (0.0-12.0) % Eosinophils % (0.00-5.0) % Basophils % (0.0-0.4) % Absolute Granulocytes (1.4-6.9) x10^3/uL Basophils # (0-0.4) x10^3/uL Sodium (137-145) mmol/L Potassium (3.5-5.1) mmol/L Chloride (98-107) mmol/L Carbon Dioxide (22-30) mmol/L Anion Gap (5-15) MEQ/L BUN (9-20) mg/dL Creatinine (0.66-1.25) mg/dL Estimated GFR ML/MIN Glucose (74-106) mg/dL POC Glucometer 112 H 124 H (74 to 106) mg/dL Calcium (8.4-10.2) mg/dL Total Bilirubin (0.2-1.3) mg/dL AST (17-59) U/L ALT (0-50) U/L Alkaline Phosphatase (38-126) U/L Serum Total Protein (6.3-8.2) g/dL Albumin (3.5-5.0) g/dL C. difficile Screen NEGATIVE (NEGATIVE) C.difficile 027-NAP1-B1 PRESUMPTIVE NEGATIVE (NEGATIVE) 06/28/23 06/29/23 Range/Units 20:49 04:40 WBC 6.6 (4.0-10.5) x10^3/uL RBC 4.43 (4.1-5.6) x10^6/uL Hgb 12.0 L (12.5-18.0) g/dL Hct 38.2 L (42-50) % MCV 86.2 (78-100) fL MCH 27.1 (26-32) pg MCHC 31.4 L (32-36) g/dL RDW 14.5 H (11.5-14.0) % Plt Count 260 (150-450) x10^3/uL MPV 9.5 (7.5-11.0) fL Gran % 87.9 H (36.0-66.0) % Immature Gran % (Auto) 0.6 H (0.00-0.4) % Nucleat RBC Rel Count 0.0 (0.00-0.1) % Eos # (Auto) 0 (0-0.5) x10^3/uL Immature Gran # (Auto) 0.04 H (0.00-0.03) x10^3u/L Absolute Lymphs (auto) 0.47 L (1.0-4.6) x10^3/uL Absolute Monos (auto) 0.27 (0.0-1.3) x10^3/uL Absolute Nucleated RBC 0.00 (0.00-0.01) x10^3u/L Lymphocytes % 7.2 L (24.0-44.0) % Monocytes % 4.1 (0.0-12.0) % Eosinophils % 0.0 (0.00-5.0) % Basophils % 0.2 (0.0-0.4) % Absolute Granulocytes 5.78 (1.4-6.9) x10^3/uL Basophils # 0.01 (0-0.4) x10^3/uL Sodium (137-145) mmol/L Potassium (3.5-5.1) mmol/L Chloride (98-107) mmol/L Carbon Dioxide (22-30) mmol/L Anion Gap (5-15) MEQ/L BUN (9-20) mg/dL Creatinine (0.66-1.25) mg/dL Estimated GFR ML/MIN Glucose (74-106) mg/dL POC Glucometer 135 H (74 to 106) mg/dL Calcium (8.4-10.2) mg/dL Total Bilirubin (0.2-1.3) mg/dL AST (17-59) U/L ALT (0-50) U/L Alkaline Phosphatase (38-126) U/L Serum Total Protein (6.3-8.2) g/dL Albumin (3.5-5.0) g/dL C. difficile Screen (NEGATIVE) C.difficile 027-NAP1-B1 (NEGATIVE) Radiology Exams: Radiology Procedures Category Date Time Status CHEST WITHOUT CONTRAST [CT] Routine Exams 06/27/23 14:14 Completed Multi-Disciplinary Progress Notes: Multi-Disciplinary Progress Notes 06/28/23 16:57 Occupational Therapy Note by Jnony([id number])Shasha OTR coordinated with nursing re: patient status. Per nursing patient is still on high flow oxygen and calm, but continues to desat with exertion and transfers. OT Evaluation held this date and OT will continue to monitor patient throughout duration of stay to attempt evaluation. Initialized on 06/28/23 16:57 - END OF NOTE 06/28/23 13:31 Physical Therapy Note by Elenita(L#[id number])Candi PT. HELD TODAY PT. ON HIGH FLOW O2. OT TO ATTEMPT THIS P.M. Initialized on 06/28/23 13:31 - END OF NOTE 06/28/23 12:59 Case Management Note by Gloria Friend S/Laureano PATIENT- HE CONTINUES TO PLAN TO DC AT TIME OF DC. HHC HAS BEEN SETUP. HE ALREADY HAS HOME OXYGEN. Initialized on 06/28/23 12:59 - END OF NOTE 06/28/23 12:57 Case Management Note by Gloria Friend/Laureano [facility]- THEY HAVE ACCEPTED PATIENT AND WILL NEED NOTIFIED AT DC Initialized on 06/28/23 12:57 - END OF NOTE 06/28/23 11:41 Occupational Therapy Note by Stephanie Lee 11:30 am- OT completed chart review and discussion held with RNErinn; OT will hold treatment session this morning as patient continues on high flow oxygen and recently calmed down/able to relax. Goal is to transition patient off the high flow oxygen; however, he desat upon exertion (transfers specifically). OT will follow up in afternoon as appropriate. Initialized on 06/28/23 11:41 - END OF NOTE Assessment/Plan (1) COPD exacerbation Current Visit: Yes Status: Chronic Assessment & Plan: -Patient on non-invasive ventilator at home, he does not wish to bring in, baseline 4L, currently on venit-mask -RT evaluation -Supplemental oxygen for goal of 88-92%, Bipap as needed/ABG as needed -Resp panel negative -Cxr with Bilateral mainly lower zone coarsened pulmonary interstitium with diffuse prominent bronchial markings. -Rocepin/azithromycin started in ED, will continue -Solumedrol 40 BID -Consider pulm consult if no improvement 06/27/23: -Consult pulm, appreciate recs -Continue IV abx steroids/inh/nebs 06/28: -Pulm with recs to increase steroids to TID -CT showing Advanced chronic obstructive pulmonary disease COPD. 2. Mild fibrocalcific changes in the left upper lobe, sequelae to the previous infection -Continue abx/steroids/inh/nebs 06/29: -Improving, consider discharge tomorrow, may need requalified for oxygen if requiring > baseline of 4L Code(s): J44.1 - CHRONIC OBSTRUCTIVE PULMONARY DISEASE W (ACUTE) EXACERBATION (2) Hypotension Current Visit: Yes Status: Acute Assessment & Plan: -Continue to monitor, received bolus in ED, monitor for fluid overload 06/27: -Stable Code(s): I95.9 - HYPOTENSION, UNSPECIFIED (3) Leukocytosis Current Visit: Yes Status: Acute Qualifiers: Assessment & Plan: -Ceftriaxone/azithromycin, will continue to monitor 06/27: -Resolved Code(s): D72.829 - ELEVATED WHITE BLOOD CELL COUNT, UNSPECIFIED (4) CAD (coronary artery disease) Current Visit: No Status: Chronic Qualifiers: Coronary Disease-Associated Artery/Lesion type: [place] artery [place] vs. transplanted heart: [place] heart Associated angina: without angina Qualified Code(s): I25.10 - Atherosclerotic heart disease of [place] coronary artery without angina pectoris Assessment & Plan: -noted, continue home meds Code(s): I25.10 - ATHSCL HEART DISEASE OF [place] CORONARY ARTERY W/O ANG PCTRS (5) CHF (congestive heart failure) Current Visit: No Status: Chronic Qualifiers: Heart failure chronicity: chronic Assessment & Plan: -Pedal edema +2 pitting -Lasix 40mg BID 06/28: -Patient euvolemic, will continue with home dose of diurectics Code(s): I50.9 - HEART FAILURE, UNSPECIFIED (6) DM2 (diabetes mellitus, type 2) Current Visit: No Status: Chronic Qualifiers: Diabetes mellitus terminal carman insulin use: without senior care use Diabetes mellitus complication status: without complication Qualified Code(s): E11.9 - Type 2 diabetes mellitus without complications Assessment & Plan: -Patient states he is no longer on diabetic medications per PCP, will start ADA diet, add A1c, and SSI, may need coverage due to steroids (7) GERD (gastroesophageal reflux disease) Current Visit: No Status: Chronic Qualifiers: Esophagitis presence: without esophagitis Assessment & Plan: -continue home meds Code(s): K21.9 - GASTRO-ESOPHAGEAL REFLUX DISEASE WITHOUT ESOPHAGITIS Code(s): J44.1 - CHRONIC OBSTRUCTIVE PULMONARY DISEASE W (ACUT Code(s): J44.1 - CHRONIC OBSTRUCTIVE PULMONARY DISEASE W (ACUTE) EXACERBATION Code(s): J44.1 - CHRONIC OBSTRUCTIVE PULMONARY DISEASE W (ACUTE) EXACERBATION (2) Hypotension Current Visit: Yes Status: Acute Code(s): I95.9 - HYPOTENSION, UNSPECIFIED (3) Leukocytosis Current Visit: Yes Status: Acute Qualifiers: Code(s): D72.829 - ELEVATED WHITE BLOOD CELL COUNT, UNSPECIFIED (4) CAD (coronary artery disease) Current Visit: No Status: Chronic Qualifiers: Coronary Disease-Associated Artery/Lesion type: [place] artery [place] vs. transplanted heart: [place] heart Associated angina: without angina Qualified Code(s): I25.10 - Atherosclerotic heart disease of [place] coronary artery without angina pectoris Code(s): I25.10 - ATHSCL HEART DISEASE OF [place] CORONARY ARTERY W/O ANG PCTRS (5) CHF (congestive heart failure) Current Visit: No Status: Chronic Qualifiers: Heart failure chronicity: chronic Code(s): I50.9 - HEART FAILURE, UNSPECIFIED (6) DM2 (diabetes mellitus, type 2) Current Visit: No Status: Chronic Qualifiers: Diabetes mellitus senior care insulin use: without senior care use Diabetes mellitus complication status: without complication Qualified Code(s): E11.9 - Type 2 diabetes mellitus without complications (7) GERD (gastroesophageal reflux disease) Current Visit: No Status: Chronic Qualifiers: Esophagitis presence: without esophagitis Qualified Code(s): K21.9 - Gastro-esophageal reflux disease without esophagitis Code(s): K21.9 - GASTRO-ESOPHAGEAL REFLUX DISEASE WITHOUT ESOPHAGITIS
[2023-06-29 05:03] LABS: ALBUMIN 3.5 g/dL (3.5-5.0); BILIRUBIN,TOTAL 0.7 mg/dL (0.2-1.3); Calcium 9.2 mg/dL (8.4-10.2); Creatinine 1 0.64 mg/dL (0.66-1.25); EST GLOMERULAR FILTRATION RATE 98.1 ML/MIN; Total Protein 6.2 g/dL (6.3-8.2)
[2023-06-29 05:31] LABS: Slide Review 1 YES
[2023-06-29] MEDS: PATIENT OWN MEDICATION IH SCH ×2 (07:19→18:41)
[2023-06-29] MEDS ORDERED: solu-MEDROL ONE (07:40)
[2023-06-29] MEDS: solu-MEDROL 40 MG, Sterile H2O 10 ml 1 ML IV SCH ×6 (07:42→21:45)
[2023-06-29] MEDS: Protonix 40MG Tablet PO SCH ×2 (08:50→16:56)
[2023-06-29] MEDS: ENTRESTO 49 MG-51 MG TABLET PO SCH ×2 (09:49→21:43)
[2023-06-29] MEDS: ENOXAPARIN SODIUM SQ SCH (09:49)
[2023-06-29] MEDS: Aldactone 25 MG PO SCH (09:50)
[2023-06-29] MEDS: NORVASC 5 MG PO SCH (09:50)
[2023-06-29] MEDS: Lopressor 25MG Tab PO SCH ×2 (09:51→21:48)
[2023-06-29] MEDS: Imdur 60MG PO SCH (09:51)
[2023-06-29] MEDS: CLARITIN 10 MG PO SCH (09:51)
[2023-06-29] MEDS: THEOPHYLLINE ER 24HR PO SCH ×2 (09:52→21:47)
[2023-06-29] MEDS: LASIX 20 MG PO SCH (09:52)
[2023-06-29] MEDS: ROCEPHIN 1 Gm-D5w 50 ml Bag** 1 G/50 ML IVPB IV SCH (09:54)
[2023-06-29] MEDS: Zithromax 500 MG/ 250 ML NaCl Premix 500 MG/250 ML IVPB IV SCH (10:47)
[2023-06-29] MEDS: Mirapex 0.5 MG Tablet PO SCH (21:41)
[2023-06-29] MEDS: ECOTRIN 81 MG PO SCH (21:43)
[2023-06-29] MEDS: ZOCOR 20MG PO SCH (21:44)
[2023-06-29] MEDS: Xalatan OP SCH (21:46)
[2023-06-29] MEDS: Flonase NASAL NS SCH (21:49)
[2023-06-30] MEDS: PROVENTIL 2.5 MG/3 ML NEB IH SCH ×6 (02:29→23:58)
--- NOTE | 2023-06-30 05:21 | PCM.NOTE ---
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 Patient states that he has had a productive cough with dark green sputum for about 2 months and over the past 2 days he has had progressively worsening shortness of breath. He endorses he has several COPD exacerbations and this is similar to previous episodes. Patient states he has been unable to perform his normal ADL's.CXR demonstrates bilateral mainly lower zone coarsened pulmonary interstitium with diffuse prominent bronchial markings. Lab findings significant for WBC at 15, Tbili at 1.8, sodium at 136 and chloride at 97. DDimer and respiratory panel negative. Patient was given fluid bolus due to hypotension, ceftriaxone/azithromycin, duonebs, and solumedrol with noted improvement. 06/27: Met with patient bedside. Endorses continued increase in shortness of breath, especially with exertion. States cough is somewhat better. BLE peda edema improved with R>L, will change lasix dosing to once daily. 95% on oxymizer. Pulmonolgy consulted. Denies fever, cp, abdominal pain, GONSALES, dizziness, N/V/D. 06/28: Met with patient bedside. Endorses improvement overall of shortness of breath and cough but not at baseline. Has c/o PND and loose, and loose watery stools greater than three times a day. Discussed CT results with patient demonstrating known COPD and mild fibrocalcific changes in his [place]. Patient requesting Flonase, will add claritin. Stool studies ordered. 06/29: No overnight events noted. Patient endorses improvement overnight with shortness of breath, cough, and diarrhea. Lung with improved aeration on auscultation. Plan is to continue current management, possible discharge tomorrow if he continues to improve. 06/30: Patient examined bedside. Continues on HF oxygen, trying to wean. Endorses improved appetite. Continues with sob, cough (improved), and states diarrhea is almost resolved. Lungs are still diminished on auscultation. Denies fever, cp, abdominal pain, GONSALES, dizziness, N/V/D. - Review of Systems Constitutional: No Symptoms Eyes: No Symptoms Ears, Nose, & Throat: Sinus Drainage Respiratory: Cough, Short Of Breath Cardiac: No Symptoms Abdominal/Gastrointestinal: No Symptoms Genitourinary Symptoms: No Symptoms Musculoskeletal: No Symptoms Skin: No Symptoms Neurological: No Symptoms Psychological: No Symptoms Endocrine: No Symptoms Hematologic/Lymphatic: No Symptoms Immunological/Allergic: No Symptoms Objective Exam General Appearance: no apparent distress Neurologic Exam: alert, oriented x 3 Skin Exam: normal color Eye Exam: PERRL Ears, Nose, Throat Exam: moist mucous membranes Neck Exam: normal inspection Respiratory Exam: diminished breath sounds, wheezing Cardiovascular Exam: regular rate/rhythm, normal heart sounds Gastrointestinal/Abdomen Exam: soft, normal bowel sounds Extremity Exam: normal inspection Back Exam: normal inspection Male Genitalia Exam: deferred OBJECTIVE DATA Vital Signs: Vital Signs - 24 hr Temp Pulse Resp BP Pulse Ox 06/30/23 05:00 98.3 F 104 H 20 136/80 94 L 06/30/23 04:20 92 L 06/30/23 02:30 98 H 24 91 L 06/30/23 00:30 94 L 06/29/23 23:54 98.5 F 104 H 24 108/58 90 L 06/29/23 22:37 96 H 18 96 06/29/23 21:00 98.2 F 111 H 22 127/85 91 L 06/29/23 20:42 91 L 06/29/23 18:48 79 22 85 L 06/29/23 16:50 97.7 F 94 H 20 107/62 89 L 06/29/23 15:04 108 H 18 94 L 06/29/23 12:48 97.9 F 106 H 24 111/65 88 L 06/29/23 10:48 96 H 18 95 06/29/23 09:48 105 H 140/77 06/29/23 07:20 97.8 F 93 H 21 141/69 96 Pain Assessment - Last Documented Pain Intensity 0 Intake and Output: Intake & Output 06/27/23 06/28/23 06/29/23 06/30/23 11:59 11:59 11:59 11:59 Intake Total 2440 2160 1800 920 Output Total 326 2000 550 Balance 2114 160 1800 370 Weight 82.1 kg 82.1 kg Lab Results: Lab Results-Last 24 Hours 06/29/23 06/29/23 06/29/23 Range/Units 04:40 06:38 12:04 POC Glucometer 113 H 124 H (74 to 106) mg/dL Slides for Path Review YES 06/29/23 06/29/23 Range/Units 16:22 22:25 POC Glucometer 98 129 H (74 to 106) mg/dL Slides for Path Review Multi-Disciplinary Progress Notes: Multi-Disciplinary Progress Notes 06/29/23 19:17 Respiratory Note by Alis Lanier PT FLOW WAS INCREASED TO 30L AND 30% FIO2 VIA HIGH FLOW POST TX BUT O2 SAT ONLY INCREASED TO 86-88%. FIO2 WAS THEN INCREASED TO 40% AND FLOW KEPT AT 30L. O2 SAT INCREASED TO 94%. NURSE AWARE. Initialized on 06/29/23 19:17 - END OF NOTE 06/29/23 15:39 Occupational Therapy Note by Stephanie Lee Occupational Therapy will hold evaluation for patient at this time due to hypoxia and desat with transfers while on high flow O2. OT will follow up as appropriate and as cardiopulmonary function improves. Initialized on 06/29/23 15:39 - END OF NOTE 06/29/23 13:53 Physical Therapy Note by Elenita([id number])Candi P.T. CONT. TO BE HELD D/T HYPOXIA. NSG REPORTED PT. DESATURATED TO <80% ON HIGH FLOW TO W/ TRANSFER TO BEDSIDE COMMODE. WILL MONITOR FOR APPROPRIATENESS OF P.T. INTERVENTION IF CARDIOPULMONARY STATUS IMPROVES. Initialized on 06/29/23 13:53 - END OF NOTE 06/29/23 11:31 Case Management Note by Gloria Friend PATIENT CONTINUES TO DENY ANY NEW NEEDS AT TIME OF DC. HE REPORTS HIS FIANCE WILL BE ABLE TO HELP HIM AT HOME. HHC HAS BEEN SET UP THRU [facility]. PATIENT REPORTS HE HAS ALL HIS OXYGEN EQUIPMENT NEEDED AND OTHER DME HE NEEDS. HE PLANS TO RETURN HOME TO HIS [facility] AT TIME OF DC. PATIENT USES [facility] FOR OXYGEN. HIS NORMAL SETTING IS 4L. IF PATIENT DCS HOME OVER THE WEEKEND AND NEEDS >4L PATIENT WILL NEED QUALIFIED AND NEW O2 ORDER SENT TO [facility] THIS WILL LIKELY REQUIRE A NEW CONCENTRATOR. O2 ORDER FORM PLACED ON CHART Initialized on 06/29/23 11:31 - END OF NOTE Assessment/Plan (1) COPD exacerbation Current Visit: Yes Status: Chronic Assessment & Plan: -Patient on non-invasive ventilator at home, he does not wish to bring in, baseline 4L, currently on venit-mask -RT evaluation -Supplemental oxygen for goal of 88-92%, Bipap as needed/ABG as needed -Resp panel negative -Cxr with Bilateral mainly lower zone coarsened pulmonary interstitium with diffuse prominent bronchial markings. -Rocepin/azithromycin started in ED, will continue -Solumedrol 40 BID -Consider pulm consult if no improvement 06/27/23: -Consult pulm, appreciate recs -Continue IV abx steroids/inh/nebs 06/28: -Pulm with recs to increase steroids to TID -CT showing Advanced chronic obstructive pulmonary disease COPD. 2. Mild fibrocalcific changes in the left upper lobe, sequelae to the previous infection -Continue abx/steroids/inh/nebs 06/29: -Improving, consider discharge tomorrow, may need requalified for oxygen if requiring > baseline of 4L 06/30: -Attempting to wean off HF -Continue current management, has had 3 doses of azithromycin, so will dc this Code(s): J44.1 - CHRONIC OBSTRUCTIVE PULMONARY DISEASE W (ACUTE) EXACERBATION (2) Hypotension Current Visit: Yes Status: Acute Assessment & Plan: -Continue to monitor, received bolus in ED, monitor for fluid overload 06/27: -Stable Code(s): I95.9 - HYPOTENSION, UNSPECIFIED (3) Leukocytosis Current Visit: Yes Status: Acute Qualifiers: Assessment & Plan: -Ceftriaxone/azithromycin, will continue to monitor 06/27: -Resolved Code(s): D72.829 - ELEVATED WHITE BLOOD CELL COUNT, UNSPECIFIED (4) CAD (coronary artery disease) Current Visit: No Status: Chronic Qualifiers: Coronary Disease-Associated Artery/Lesion type: [place] artery [place] vs. transplanted heart: [place] heart Associated angina: without angina Qualified Code(s): I25.10 - Atherosclerotic heart disease of [place] coronary artery without angina pectoris Assessment & Plan: -noted, continue home meds Code(s): I25.10 - ATHSCL HEART DISEASE OF [place] CORONARY ARTERY W/O ANG PCTRS (5) CHF (congestive heart failure) Current Visit: No Status: Chronic Qualifiers: Heart failure chronicity: chronic Assessment & Plan: -Pedal edema +2 pitting -Lasix 40mg BID 06/28: -Patient euvolemic, will continue with home dose of diurectics Code(s): I50.9 - HEART FAILURE, UNSPECIFIED (6) DM2 (diabetes mellitus, type 2) Current Visit: No Status: Chronic Qualifiers: Diabetes mellitus retirement insulin use: without retirement use Diabetes mellitus complication status: without complication Qualified Code(s): E11.9 - Type 2 diabetes mellitus without complications Assessment & Plan: -Patient states he is no longer on diabetic medications per PCP, will start ADA diet, add A1c, and SSI, may need coverage due to steroids (7) GERD (gastroesophageal reflux disease) Current Visit: No Status: Chronic Qualifiers: Esophagitis presence: without esophagitis Assessment & Plan: -continue home meds Code(s): K21.9 - GASTRO-ESOPHAGEAL REFLUX DISEASE WITHOUT ESOPHAGITIS Code(s): J44.1 - CHRONIC OBSTRUCTIVE PULMONARY DISEASE W (ACUTE) EXACERBATION (2) Hypotension Current Visit: Yes Status: Acute Code(s): I95.9 - HYPOTENSION, UNSPECIFIED (3) Leukocytosis Current Visit: Yes Status: Acute Qualifiers: Code(s): D72.829 - ELEVATED WHITE BLOOD CELL COUNT, UNSPECIFIED (4) CAD (coronary artery disease) Current Visit: No Status: Chronic Qualifiers: Coronary Disease-Associated Artery/Lesion type: [place] artery [place] vs. 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
[2023-06-30 05:55] LABS: Absolute Neutrophil Ct (ANC) 6.28 x10^3/uL (1.4-6.9); BASOPHIL % 0.1 % (0.0-0.4); Basophil (Absolute #) 0.01 x10^3/uL (0-0.4); Eosinophil (Absolute #) 0 x10^3/uL (0-0.5); Hematocrit 38.9 % (42-50); IMMATURE GRAN # 0.07 x10^3u/L (0.00-0.03); IMMATURE GRAN % 0.9 % (0.00-0.4); Lymphocytes % 7.9 % (24.0-44.0); Mean Cell Volume 84.7 fL (78-100); Mean Corpuscular Hemoglobin 26.1 pg (26-32); Mean Corpuscular Hgb Concent. 30.8 g/dL (32-36); Mean Platelet Volume 9.7 fL (7.5-11.0); Monocyte (Absolute #) 0.63 x10^3/uL (0.0-1.3); Monocytes % 8.3 % (0.0-12.0); Neutrophil % 82.8 % (36.0-66.0); Platelet Count 297 x10^3/uL (150-450); Red Blood Count 4.59 x10^6/uL (4.1-5.6); Red Cell Distribution Width 14.6 % (11.5-14.0); White Blood Count 7.6 x10^3/uL (4.0-10.5)
[2023-06-30 06:26] LABS: ALBUMIN 3.5 g/dL (3.5-5.0); ANION GAP 8.4 MEQ/L (5-15); BILIRUBIN,TOTAL 0.7 mg/dL (0.2-1.3); Calcium 9.1 mg/dL (8.4-10.2); Creatinine 1 0.66 mg/dL (0.66-1.25); EST GLOMERULAR FILTRATION RATE 97.2 ML/MIN; Potassium 3.8 mmol/L (3.5-5.1); Total Protein 6.3 g/dL (6.3-8.2)
[2023-06-30] MEDS: solu-MEDROL 40 MG, Sterile H2O 10 ml 1 ML IV SCH ×6 (06:39→21:22)
[2023-06-30] MEDS: PATIENT OWN MEDICATION IH SCH ×2 (07:19→20:25)
[2023-06-30] MEDS: Protonix 40MG Tablet PO SCH ×2 (08:18→16:35)
[2023-06-30] MEDS: Aldactone 25 MG PO SCH (10:34)
[2023-06-30] MEDS: ENOXAPARIN SODIUM SQ SCH (10:37)
[2023-06-30] MEDS: CLARITIN 10 MG PO SCH (10:37)
[2023-06-30] MEDS: ENTRESTO 49 MG-51 MG TABLET PO SCH ×2 (10:38→21:22)
[2023-06-30] MEDS: LASIX 20 MG PO SCH (10:39)
[2023-06-30] MEDS: Imdur 60MG PO SCH (10:39)
[2023-06-30] MEDS: NORVASC 5 MG PO SCH (10:40)
[2023-06-30] MEDS: Lopressor 25MG Tab PO SCH ×2 (10:40→21:23)
[2023-06-30] MEDS: ROCEPHIN 1 Gm-D5w 50 ml Bag** 1 G/50 ML IVPB IV SCH (10:40)
[2023-06-30] MEDS: THEOPHYLLINE ER 24HR PO SCH ×2 (10:42→21:23)
[2023-06-30] MEDS: Zithromax 500 MG/ 250 ML NaCl Premix 500 MG/250 ML IVPB IV SCH (12:15)
[2023-06-30] MEDS: ECOTRIN 81 MG PO SCH (21:22)
[2023-06-30] MEDS: ZOCOR 20MG PO SCH (21:22)
[2023-06-30] MEDS: Flonase NASAL NS SCH (21:23)
[2023-06-30] MEDS: Mirapex 0.5 MG Tablet PO SCH (21:23)
[2023-06-30] MEDS: Xalatan OP SCH (21:24)
[2023-07-01] MEDS: PROVENTIL 2.5 MG/3 ML NEB IH SCH ×6 (04:15→23:52)
--- NOTE | 2023-07-01 05:26 | PCM.NOTE ---
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 Patient states that he has had a productive cough with dark green sputum for about 2 months and over the past 2 days he has had progressively worsening shortness of breath. He endorses he has several COPD exacerbations and this is similar to previous episodes. Patient states he has been unable to perform his normal ADL's.CXR demonstrates bilateral mainly lower zone coarsened pulmonary interstitium with diffuse prominent bronchial markings. Lab findings significant for WBC at 15, Tbili at 1.8, sodium at 136 and chloride at 97. DDimer and respiratory panel negative. Patient was given fluid bolus due to hypotension, ceftriaxone/azithromycin, duonebs, and solumedrol with noted improvement. 06/27: Met with patient bedside. Endorses continued increase in shortness of breath, especially with exertion. States cough is somewhat better. BLE peda edema improved with R>L, will change lasix dosing to once daily. 95% on oxymizer. Pulmonolgy consulted. Denies fever, cp, abdominal pain, GONSALES, dizziness, N/V/D. 06/28: Met with patient bedside. Endorses improvement overall of shortness of breath and cough but not at baseline. Has c/o PND and loose, and loose watery stools greater than three times a day. Discussed CT results with patient demonstrating known COPD and mild fibrocalcific changes in his [place]. Patient requesting Flonase, will add claritin. Stool studies ordered. 06/29: No overnight events noted. Patient endorses improvement overnight with shortness of breath, cough, and diarrhea. Lung with improved aeration on auscultation. Plan is to continue current management, possible discharge tomorrow if he continues to improve. 06/30: Patient examined bedside. Continues on HF oxygen, trying to wean. Endorses improved appetite. Continues with sob, cough (improved), and states diarrhea is almost resolved. Lungs are still diminished on auscultation. Denies fever, cp, abdominal pain, GONSALES, dizziness, N/V/D. 07/01: Patient up in chair, doing better. Respiratory to titrate oxygen today. Endorses improved aeration, cough less productive, sputum is now light green. No further complaints of diarrhea. Plan is to attempt titration today, discharge in the morning if he is able to tolerate titration. - Review of Systems Constitutional: No Symptoms Eyes: No Symptoms Ears, Nose, & Throat: No Symptoms Respiratory: Cough, Short Of Breath Cardiac: No Symptoms Abdominal/Gastrointestinal: No Symptoms Genitourinary Symptoms: No Symptoms Musculoskeletal: No Symptoms Skin: No Symptoms Neurological: No Symptoms Psychological: No Symptoms Objective Exam General Appearance: no apparent distress Neurologic Exam: alert, oriented x 3, cooperative Skin Exam: normal color Eye Exam: PERRL Ears, Nose, Throat Exam: normal ENT inspection Neck Exam: normal inspection Respiratory Exam: diminished breath sounds Cardiovascular Exam: regular rate/rhythm, normal heart sounds Gastrointestinal/Abdomen Exam: soft, normal bowel sounds Extremity Exam: normal inspection Back Exam: normal inspection OBJECTIVE DATA Vital Signs: Vital Signs - 24 hr Temp Pulse Resp BP Pulse Ox 07/01/23 04:34 97.8 F 84 20 124/80 89 L 07/01/23 04:15 98 H 18 97 06/30/23 23:58 86 28 H 90 L 06/30/23 23:37 97.7 F 77 20 116/70 90 L 06/30/23 20:25 89 23 90 L 06/30/23 20:03 97.9 F 81 20 122/63 94 L 06/30/23 16:50 97.7 F 76 22 115/56 96 06/30/23 15:05 98 H 22 95 06/30/23 11:53 97.7 F 84 19 109/58 94 L 06/30/23 10:53 98 H 24 91 L 06/30/23 08:09 98.1 F 91 H 19 118/62 94 L 06/30/23 07:21 96 H 26 H 93 L Pain Assessment - Last Documented Pain Intensity 0 Intake and Output: Intake & Output 06/28/23 06/29/23 06/30/23 07/01/23 11:59 11:59 11:59 11:59 Intake Total 2160 1800 980 340 Output Total 2000 550 Balance 160 1800 430 340 Weight 82.1 kg Lab Results: Lab Results-Last 24 Hours 06/30/23 06/30/23 06/30/23 Range/Units 05:23 05:23 11:38 WBC 7.6 (4.0-10.5) x10^3/uL RBC 4.59 (4.1-5.6) x10^6/uL Hgb 12.0 L (12.5-18.0) g/dL Hct 38.9 L (42-50) % MCV 84.7 (78-100) fL MCH 26.1 (26-32) pg MCHC 30.8 L (32-36) g/dL RDW 14.6 H (11.5-14.0) % Plt Count 297 (150-450) x10^3/uL MPV 9.7 (7.5-11.0) fL Gran % 82.8 H (36.0-66.0) % Immature Gran % (Auto) 0.9 H (0.00-0.4) % Nucleat RBC Rel Count 0.0 (0.00-0.1) % Eos # (Auto) 0 (0-0.5) x10^3/uL Immature Gran # (Auto) 0.07 H (0.00-0.03) x10^3u/L Absolute Lymphs (auto) 0.60 L (1.0-4.6) x10^3/uL Absolute Monos (auto) 0.63 (0.0-1.3) x10^3/uL Absolute Nucleated RBC 0.00 (0.00-0.01) x10^3u/L Lymphocytes % 7.9 L (24.0-44.0) % Monocytes % 8.3 (0.0-12.0) % Eosinophils % 0.0 (0.00-5.0) % Basophils % 0.1 (0.0-0.4) % Absolute Granulocytes 6.28 (1.4-6.9) x10^3/uL Basophils # 0.01 (0-0.4) x10^3/uL Sodium 136 L (137-145) mmol/L Potassium 3.8 (3.5-5.1) mmol/L Chloride 97 L (98-107) mmol/L Carbon Dioxide 34 H (22-30) mmol/L Anion Gap 8.4 (5-15) MEQ/L BUN 15 (9-20) mg/dL Creatinine 0.66 (0.66-1.25) mg/dL Estimated GFR 97.2 ML/MIN Glucose 123 H (74-106) mg/dL POC Glucometer 131 H (74 to 106) mg/dL Calcium 9.1 (8.4-10.2) mg/dL Total Bilirubin 0.70 (0.2-1.3) mg/dL AST 28 (17-59) U/L ALT 25 (0-50) U/L Alkaline Phosphatase 49 (38-126) U/L Serum Total Protein 6.3 (6.3-8.2) g/dL Albumin 3.5 (3.5-5.0) g/dL 06/30/23 06/30/23 Range/Units 16:39 20:44 WBC (4.0-10.5) x10^3/uL RBC (4.1-5.6) x10^6/uL Hgb (12.5-18.0) g/dL Hct (42-50) % MCV (78-100) fL MCH (26-32) pg MCHC (32-36) g/dL RDW (11.5-14.0) % Plt Count (150-450) x10^3/uL MPV (7.5-11.0) fL Gran % (36.0-66.0) % Immature Gran % (Auto) (0.00-0.4) % Nucleat RBC Rel Count (0.00-0.1) % Eos # (Auto) (0-0.5) x10^3/uL Immature Gran # (Auto) (0.00-0.03) x10^3u/L Absolute Lymphs (auto) (1.0-4.6) x10^3/uL Absolute Monos (auto) (0.0-1.3) x10^3/uL Absolute Nucleated RBC (0.00-0.01) x10^3u/L Lymphocytes % (24.0-44.0) % Monocytes % (0.0-12.0) % Eosinophils % (0.00-5.0) % Basophils % (0.0-0.4) % Absolute Granulocytes (1.4-6.9) x10^3/uL Basophils # (0-0.4) x10^3/uL Sodium (137-145) mmol/L Potassium (3.5-5.1) mmol/L Chloride (98-107) mmol/L Carbon Dioxide (22-30) mmol/L Anion Gap (5-15) MEQ/L BUN (9-20) mg/dL Creatinine (0.66-1.25) mg/dL Estimated GFR ML/MIN Glucose (74-106) mg/dL POC Glucometer 112 H 134 H (74 to 106) mg/dL Calcium (8.4-10.2) mg/dL Total Bilirubin (0.2-1.3) mg/dL AST (17-59) U/L ALT (0-50) U/L Alkaline Phosphatase (38-126) U/L Serum Total Protein (6.3-8.2) g/dL Albumin (3.5-5.0) g/dL Assessment/Plan (1) COPD exacerbation Current Visit: Yes Status: Chronic Assessment & Plan: -Patient on non-invasive ventilator at home, he does not wish to bring in, baseline 4L, currently on venit-mask -RT evaluation -Supplemental oxygen for goal of 88-92%, Bipap as needed/ABG as needed -Resp panel negative -Cxr with Bilateral mainly lower zone coarsened pulmonary interstitium with diffuse prominent bronchial markings. -Rocepin/azithromycin started in ED, will continue -Solumedrol 40 BID -Consider pulm consult if no improvement 06/27/23: -Consult pulm, appreciate recs -Continue IV abx steroids/inh/nebs 06/28: -Pulm with recs to increase steroids to TID -CT showing Advanced chronic obstructive pulmonary disease COPD. 2. Mild fibrocalcific changes in the left upper lobe, sequelae to the previous infection -Continue abx/steroids/inh/nebs 06/29: -Improving, consider discharge tomorrow, may need requalified for oxygen if requiring > baseline of 4L 06/30: -Attempting to wean off HF -Continue current management, has had 3 doses of azithromycin, so will dc this 07/01: -Attempt to wean to baseline oxygen, possible d/c in the morning Code(s): J44.1 - CHRONIC OBSTRUCTIVE PULMONARY DISEASE W (ACUTE) EXACERBATION (2) Hypotension Current Visit: Yes Status: Acute Assessment & Plan: -Continue to monitor, received bolus in ED, monitor for fluid overload 06/27: -Stable Code(s): I95.9 - HYPOTENSION, UNSPECIFIED (3) Leukocytosis Current Visit: Yes Status: Acute Qualifiers: Assessment & Plan: -Ceftriaxone/azithromycin, will continue to monitor 06/27: -Resolved Code(s): D72.829 - ELEVATED WHITE BLOOD CELL COUNT, UNSPECIFIED (4) CAD (coronary artery disease) Current Visit: No Status: Chronic Qualifiers: Coronary Disease-Associated Artery/Lesion type: [place] artery [place] vs. transplanted heart: [place] heart Associated angina: without angina Qualified Code(s): I25.10 - Atherosclerotic heart disease of [place] coronary artery without angina pectoris Assessment & Plan: -noted, continue home meds Code(s): I25.10 - ATHSCL HEART DISEASE OF [place] CORONARY ARTERY W/O ANG PCTRS (5) CHF (congestive heart failure) Current Visit: No Status: Chronic Qualifiers: Heart failure chronicity: chronic Assessment & Plan: -Pedal edema +2 pitting -Lasix 40mg BID 06/28: -Patient euvolemic, will continue with home dose of diurectics Code(s): I50.9 - HEART FAILURE, UNSPECIFIED (6) DM2 (diabetes mellitus, type 2) Current Visit: No Status: Chronic Qualifiers: 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 insulin use: without manager long term care use Diabetes mellitus complication status: without complication Qualified Code(s): E11.9 - Type 2 diabetes mellitus without complications Assessment & Plan: -Patient states he is no longer on diabetic medications per PCP, will start ADA diet, add A1c, and SSI, may need coverage due to steroids (7) GERD (gastroesophageal reflux disease) Current Visit: No Status: Chronic Qualifiers: Esophagitis presence: without esophagitis Assessment & Plan: -continue home meds Code(s): K21.9 - GASTRO-ESOPHAGEAL REFLUX DISEASE WITHOUT ESOPHAGITIS Code(s): J44.1 - CHRONIC OBSTRUCTIVE PULMONARY DISEASE W (ACUTE) EXACERBATION (2) Hypotension Current Visit: Yes Status: Acute Code(s): I95.9 - HYPOTENSION, UNSPECIFIED (3) Leukocytosis Current Visit: Yes Status: Acute Qualifiers: Code(s): D72.829 - ELEVATED [place] BLOOD CELL COUNT, UNSPECIFIED (4) CAD (coronary artery disease) Current Visit: No Status: Chronic Qualifiers: Coronary Disease-Associated Artery/Lesion type: [place] artery [place] vs. transplanted heart: [place] heart Associated angina: without angina Qualified Code(s): I25.10 - Atherosclerotic heart disease of [place] coronary artery without angina pectoris Code(s): I25.10 - ATHSCL HEART DISEASE OF [place] CORONARY ARTERY W/O ANG PCTRS (5) CHF (congestive heart failure) Current Visit: No Status: Chronic Qualifiers: Heart failure chronicity: chronic Code(s): I50.9 - HEART FAILURE, UNSPECIFIED (6) DM2 (diabetes mellitus, type 2) Current Visit: No Status: Chronic Qualifiers: 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 insulin use: without manager long term care use Diabetes mellitus complication status: without complication Qualified Code(s): E11.9 - Type 2 diabetes mellitus without complications (7) GERD (gastroesophageal reflux disease) Current Visit: No Status: Chronic Qualifiers: Esophagitis presence: without esophagitis Qualified Code(s): K21.9 - Gastro-esophageal reflux disease without esophagitis Code(s): K21.9 - GASTRO-ESOPHAGEAL REFLUX DISEASE WITHOUT ESOPHAGITIS
[2023-07-01 06:14] LABS: Absolute Neutrophil Ct (ANC) 5.83 x10^3/uL (1.4-6.9); BASOPHIL % 0.1 % (0.0-0.4); Basophil (Absolute #) 0.01 x10^3/uL (0-0.4); Eosinophil (Absolute #) 0 x10^3/uL (0-0.5); Hematocrit 38.9 % (42-50); Hemoglobin 11.9 g/dL (12.5-18.0); IMMATURE GRAN % 1.4 % (0.00-0.4); Lymphocyte (Absolute #) 0.64 x10^3/uL (1.0-4.6); Mean Corpuscular Hemoglobin 26.6 pg (26-32); Mean Corpuscular Hgb Concent. 30.6 g/dL (32-36); Mean Platelet Volume 9.4 fL (7.5-11.0); Monocyte (Absolute #) 0.54 x10^3/uL (0.0-1.3); Monocytes % 7.6 % (0.0-12.0); Neutrophil % 81.9 % (36.0-66.0); Platelet Count 288 x10^3/uL (150-450); Red Blood Count 4.47 x10^6/uL (4.1-5.6); Red Cell Distribution Width 14.5 % (11.5-14.0); White Blood Count 7.1 x10^3/uL (4.0-10.5)
[2023-07-01 06:50] LABS: ALBUMIN 3.3 g/dL (3.5-5.0); ANION GAP 9.1 MEQ/L (5-15); BILIRUBIN,TOTAL 0.8 mg/dL (0.2-1.3); Creatinine 1 0.64 mg/dL (0.66-1.25); EST GLOMERULAR FILTRATION RATE 98.1 ML/MIN; Potassium 3.9 mmol/L (3.5-5.1); Total Protein 5.9 g/dL (6.3-8.2)
[2023-07-01] MEDS: PATIENT OWN MEDICATION IH SCH ×2 (07:23→19:43)
[2023-07-01] MEDS: solu-MEDROL 40 MG, Sterile H2O 10 ml 1 ML IV SCH ×6 (07:58→21:04)
[2023-07-01] MEDS: Protonix 40MG Tablet PO SCH ×2 (08:01→15:59)
[2023-07-01] MEDS ORDERED: solu-MEDROL ONE (08:16)
[2023-07-01] MEDS: Aldactone 25 MG PO SCH (10:33)
[2023-07-01] MEDS: ENOXAPARIN SODIUM SQ SCH (10:36)
[2023-07-01] MEDS: CLARITIN 10 MG PO SCH (10:36)
[2023-07-01] MEDS: Imdur 60MG PO SCH (10:37)
[2023-07-01] MEDS: ENTRESTO 49 MG-51 MG TABLET PO SCH ×2 (10:37→21:04)
[2023-07-01] MEDS: LASIX 20 MG PO SCH (10:38)
[2023-07-01] MEDS: Lopressor 25MG Tab PO SCH ×2 (10:38→21:04)
[2023-07-01] MEDS: NORVASC 5 MG PO SCH (10:39)
[2023-07-01] MEDS: THEOPHYLLINE ER 24HR PO SCH ×2 (10:40→21:04)
[2023-07-01] MEDS: ROCEPHIN 1 Gm-D5w 50 ml Bag** 1 G/50 ML IVPB IV SCH (10:45)
[2023-07-01] MEDS: ZOCOR 20MG PO SCH (21:05)
[2023-07-01] MEDS: ECOTRIN 81 MG PO SCH (21:05)
[2023-07-01] MEDS: Mirapex 0.5 MG Tablet PO SCH (21:05)
[2023-07-01] MEDS: Flonase NASAL NS SCH (21:11)
[2023-07-01] MEDS: Xalatan OP SCH (21:11)
[2023-07-02] MEDS: PROVENTIL 2.5 MG/3 ML NEB IH SCH ×3 (03:33→10:51)
[2023-07-02 04:57] LABS: Absolute Neutrophil Ct (ANC) 7.08 x10^3/uL (1.4-6.9); BASOPHIL % 0.1 % (0.0-0.4); Basophil (Absolute #) 0.01 x10^3/uL (0-0.4); Eosinophil (Absolute #) 0 x10^3/uL (0-0.5); Hematocrit 39.5 % (42-50); Hemoglobin 12.2 g/dL (12.5-18.0); IMMATURE GRAN # 0.15 x10^3u/L (0.00-0.03); IMMATURE GRAN % 1.8 % (0.00-0.4); Lymphocyte (Absolute #) 0.64 x10^3/uL (1.0-4.6); Lymphocytes % 7.6 % (24.0-44.0); Mean Cell Volume 86.6 fL (78-100); Mean Corpuscular Hemoglobin 26.8 pg (26-32); Mean Corpuscular Hgb Concent. 30.9 g/dL (32-36); Mean Platelet Volume 9.3 fL (7.5-11.0); Monocyte (Absolute #) 0.49 x10^3/uL (0.0-1.3); Monocytes % 5.9 % (0.0-12.0); Neutrophil % 84.6 % (36.0-66.0); Platelet Count 278 x10^3/uL (150-450); Red Blood Count 4.56 x10^6/uL (4.1-5.6); Red Cell Distribution Width 14.5 % (11.5-14.0); White Blood Count 8.4 x10^3/uL (4.0-10.5)
[2023-07-02 05:26] LABS: ALBUMIN 3.4 g/dL (3.5-5.0); ANION GAP 9.7 MEQ/L (5-15); BILIRUBIN,TOTAL 0.8 mg/dL (0.2-1.3); Calcium 8.9 mg/dL (8.4-10.2); Creatinine 1 0.59 mg/dL (0.66-1.25); EST GLOMERULAR FILTRATION RATE 100.6 ML/MIN; Potassium 4.2 mmol/L (3.5-5.1); Total Protein 6.1 g/dL (6.3-8.2)
[2023-07-02] MEDS: solu-MEDROL 40 MG, Sterile H2O 10 ml 1 ML IV SCH ×2 (05:55)
[2023-07-02] MEDS: PATIENT OWN MEDICATION IH SCH (07:11)
[2023-07-02] MEDS: ROCEPHIN 1 Gm-D5w 50 ml Bag** 1 G/50 ML IVPB IV SCH (09:42)
[2023-07-02] MEDS: ENOXAPARIN SODIUM SQ SCH (09:44)
[2023-07-02] MEDS: ENTRESTO 49 MG-51 MG TABLET PO SCH (09:44)
[2023-07-02] MEDS: Lopressor 25MG Tab PO SCH (09:44)
[2023-07-02] MEDS: NORVASC 5 MG PO SCH (09:44)
[2023-07-02] MEDS: Protonix 40MG Tablet PO SCH (09:45)
[2023-07-02] MEDS: Aldactone 25 MG PO SCH (09:45)
[2023-07-02] MEDS: LASIX 20 MG PO SCH (09:45)
[2023-07-02] MEDS: Imdur 60MG PO SCH (09:45)
[2023-07-02] MEDS: CLARITIN 10 MG PO SCH (09:46)
[2023-07-02] MEDS: THEOPHYLLINE ER 24HR PO SCH (09:46)
--- NOTE | 2023-07-02 10:55 | PCM.DS ---
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 Patient states that he has had a productive cough with dark green sputum for about 2 months. 2 days prior to admission he has had progressively worsening shortness of breath. He endorses he has several COPD exacerbations and this is similar to previous episodes. Patient states he has been unable to perform his normal ADL's.CXR demonstrates bilateral mainly lower zone coarsened pulmonary interstitium with diffuse prominent bronchial markings. DDimer and respiratory panel negative. Patient was given fluid bolus due to hypotension, ceftriaxone/azithromycin, duonebs, and solumedrol with noted improvement. He is now on baseline oxygen of 4LNC. He is requesting to go home. Pulm did evaluate pt during admission. He has an upcoming appointment with Pulmonology scheduled. - Vitals & Intake/Output Vital Signs: Vital Signs Temperature 97.7 F 07/02/23 07:11 Pulse Rate 89 07/02/23 07:13 Respiratory Rate 20 07/02/23 07:13 Blood Pressure 120/64 07/02/23 07:11 O2 Sat by Pulse Oximetry 93 L 07/02/23 08:35 Intake & Output: Intake & Output 06/29/23 06/30/23 07/01/23 07/02/23 11:59 11:59 11:59 11:59 Intake Total 1800 980 580 755 Output Total 550 300 Balance 1800 430 580 455 Weight 82.1 kg - Lab Result Diagrams: 07/02/23 04:30 07/02/23 04:30 Lab Results-Last 24 Hrs: Lab Results-Last 24 Hours 07/01/23 07/01/23 07/01/23 Range/Units 11:37 16:43 21:49 WBC (4.0-10.5) x10^3/uL RBC (4.1-5.6) x10^6/uL Hgb (12.5-18.0) g/dL Hct (42-50) % MCV (78-100) fL MCH (26-32) pg MCHC (32-36) g/dL RDW (11.5-14.0) % Plt Count (150-450) x10^3/uL MPV (7.5-11.0) fL Gran % (36.0-66.0) % Immature Gran % (Auto) (0.00-0.4) % Nucleat RBC Rel Count (0.00-0.1) % Eos # (Auto) (0-0.5) x10^3/uL Immature Gran # (Auto) (0.00-0.03) x10^3u/L Absolute Lymphs (auto) (1.0-4.6) x10^3/uL Absolute Monos (auto) (0.0-1.3) x10^3/uL Absolute Nucleated RBC (0.00-0.01) x10^3u/L Lymphocytes % (24.0-44.0) % Monocytes % (0.0-12.0) % Eosinophils % (0.00-5.0) % Basophils % (0.0-0.4) % Absolute Granulocytes (1.4-6.9) x10^3/uL Basophils # (0-0.4) x10^3/uL Sodium (137-145) mmol/L Potassium (3.5-5.1) mmol/L Chloride (98-107) mmol/L Carbon Dioxide (22-30) mmol/L Anion Gap (5-15) MEQ/L BUN (9-20) mg/dL Creatinine (0.66-1.25) mg/dL Estimated GFR ML/MIN Glucose (74-106) mg/dL POC Glucometer 115 H 144 H 120 H (74 to 106) mg/dL Calcium (8.4-10.2) mg/dL Total Bilirubin (0.2-1.3) mg/dL AST (17-59) U/L ALT (0-50) U/L Alkaline Phosphatase (38-126) U/L Serum Total Protein (6.3-8.2) g/dL Albumin (3.5-5.0) g/dL 07/02/23 07/02/23 07/02/23 Range/Units 04:30 04:30 06:55 WBC 8.4 (4.0-10.5) x10^3/uL RBC 4.56 (4.1-5.6) x10^6/uL Hgb 12.2 L (12.5-18.0) g/dL Hct 39.5 L (42-50) % MCV 86.6 (78-100) fL MCH 26.8 (26-32) pg MCHC 30.9 L (32-36) g/dL RDW 14.5 H (11.5-14.0) % Plt Count 278 (150-450) x10^3/uL MPV 9.3 (7.5-11.0) fL Gran % 84.6 H (36.0-66.0) % Immature Gran % (Auto) 1.8 H (0.00-0.4) % Nucleat RBC Rel Count 0.0 (0.00-0.1) % Eos # (Auto) 0 (0-0.5) x10^3/uL Immature Gran # (Auto) 0.15 H (0.00-0.03) x10^3u/L Absolute Lymphs (auto) 0.64 L (1.0-4.6) x10^3/uL Absolute Monos (auto) 0.49 (0.0-1.3) x10^3/uL Absolute Nucleated RBC 0.00 (0.00-0.01) x10^3u/L Lymphocytes % 7.6 L (24.0-44.0) % Monocytes % 5.9 (0.0-12.0) % Eosinophils % 0.0 (0.00-5.0) % Basophils % 0.1 (0.0-0.4) % Absolute Granulocytes 7.08 H (1.4-6.9) x10^3/uL Basophils # 0.01 (0-0.4) x10^3/uL Sodium 133 L (137-145) mmol/L Potassium 4.2 (3.5-5.1) mmol/L Chloride 97 L (98-107) mmol/L Carbon Dioxide 31 H (22-30) mmol/L Anion Gap 9.7 (5-15) MEQ/L BUN 17 (9-20) mg/dL Creatinine 0.59 L (0.66-1.25) mg/dL Estimated GFR 100.6 ML/MIN Glucose 128 H (74-106) mg/dL POC Glucometer 168 H (74 to 106) mg/dL Calcium 8.9 (8.4-10.2) mg/dL Total Bilirubin 0.80 (0.2-1.3) mg/dL AST 22 (17-59) U/L ALT 23 (0-50) U/L Alkaline Phosphatase 41 (38-126) U/L Serum Total Protein 6.1 L (6.3-8.2) g/dL Albumin 3.4 L (3.5-5.0) g/dL Micro Results-Entire Visit: Microbiology 06/28/23 11:55 Salmonella/Shigella Screen - Final Stool Stool Culture Result 1 - Final Escherichia coli Shiga Toxins EIA - Final Giardia lamblia (PCR) - Final Cryptosporidium Antigen - Final 06/26/23 10:45 Blood Culture - Final Blood 06/26/23 10:45 Blood Culture - Final Blood Accuchecks Date 07/02/23 Date 07/01/23 Date 07/01/23 Time 07:11 Time 12:17 - Procedures and Test Procedures and Tests throughout Hospitalization: Therapy Orders & Screens 06/26/23 10:44 Respiratory Therapy Assessment DAILY Comment: 06/26/23 15:12 Oxygen Oxymizer LPM 12 lpm Comment: Diagnosis: COPD exacerbation, hypoxia Respiratory Therapy Assessment DAILY Comment: Diagnosis: COPD exacerbation, hypoxia 06/26/23 15:13 Respiratory MDI BID Comment: Diagnosis: COPD exacerbation, hypoxia 06/26/23 15:17 PT Eval & Treat (MD Order) ONCE Reason for Eval:: weakness Diagnosis: COPD exacerbation, hypoxia Respiratory Therapy Consult ONCE Comment: Reason For Exam: Diagnosis: COPD exacerbation, hypoxia OT Eval and Treat (MD Order) ONCE Comment: Physician Instructions: Reason For Exam: Diagnosis: COPD exacerbation, hypoxia 06/28/23 05:37 BiPap/CPAP ROUTINE Comment: Diagnosis: COPD exacerbation, hypoxia 06/28/23 07:52 Oxygen High Flow per RT 50% Comment: Diagnosis: COPD exacerbation, hypoxia Discharge Exam General Appearance: no apparent distress, alert Neurologic Exam: alert, oriented x 3, cooperative, normal mood/affect, nml cerebellar function, sensation nml, No motor deficits Eye Exam: PERRL, EOMI, eyes nml inspection Ears, Nose, Throat Exam: normal ENT inspection, pharynx normal, moist mucous membranes Neck Exam: normal inspection, non-tender, supple, full range of motion Respiratory Exam: normal breath sounds, lungs clear, No respiratory distress Cardiovascular Exam: regular rate/rhythm, normal heart sounds Gastrointestinal/Abdomen Exam: soft, No tenderness, No mass Male Genitalia Exam: deferred Rectal Exam: deferred Back Exam: normal inspection, normal range of motion, No CVA tenderness, No vertebral tenderness Extremity Exam: normal inspection, normal range of motion Skin Exam: normal color, warm, dry Final Diagnosis/Problem List - Final Discharge Diagnosis/Problem (1) COPD exacerbation Current Visit: Yes Status: Chronic Assessment & Plan: Assessment & Plan: -Patient on non-invasive ventilator at home, he does not wish to bring in, basel ine 4L, currently on venit-mask -RT evaluation -Supplemental oxygen for goal of 88-92%, Bipap as needed/ABG as needed -Resp panel negative -Cxr with Bilateral mainly lower zone coarsened pulmonary interstitium with diffuse prominent bronchial markings. -Rocepin/azithromycin started in ED, will continue -Solumedrol 40 BID -Consider pulm consult if no improvement 06/27/23: -Consult pulm, appreciate recs -Continue IV abx steroids/inh/nebs 06/28: -Pulm with recs to increase steroids to TID -CT showing Advanced chronic obstructive pulmonary disease COPD. 2. Mild fibrocalcific changes in the left upper lobe, sequelae to the previous infection -Continue abx/steroids/inh/nebs 06/29: -Improving, consider discharge tomorrow, may need requalified for oxygen if requiring > baseline of 4L 06/30: -Attempting to wean off HF -Continue current management, has had 3 doses of azithromycin, so will dc this 07/01: -Attempt to wean to baseline oxygen, possible d/c in the morning 07/02 - On baseline O2 of 4LNC Code(s): J44.1 - CHRONIC OBSTRUCTIVE PULMONARY DISEASE W (ACUTE) EXACERBATION (2) Hypotension Current Visit: Yes Status: Acute Assessment & Plan: - stable, resolved Code(s): I95.9 - HYPOTENSION, UNSPECIFIED (3) Leukocytosis Current Visit: Yes Status: Acute Assessment & Plan: -Resolved Code(s): D72.829 - ELEVATED WHITE BLOOD CELL COUNT, UNSPECIFIED (4) CAD (coronary artery disease) Current Visit: No Status: Chronic Assessment & Plan: -noted, continue home meds Code(s): I25.10 - ATHSCL HEART DISEASE OF [place] CORONARY ARTERY W/O ANG PCTRS (5) CHF (congestive heart failure) Current Visit: No Status: Chronic Assessment & Plan: -Patient euvolemic, will continue with home dose of diurectics Code(s): I50.9 - HEART FAILURE, UNSPECIFIED (6) DM2 (diabetes mellitus, type 2) Current Visit: No Status: Chronic Assessment & Plan: -Patient states he is no longer on diabetic medications per PCP, will start ADA diet, add A1c, and SSI, may need coverage due to steroids 07/02 - A1C 06/26/23 6.19 (7) GERD (gastroesophageal reflux disease) Current Visit: No Status: Chronic Assessment & Plan: -continue home meds Code(s): K21.9 - GASTRO-ESOPHAGEAL REFLUX DISEASE WITHOUT ESOPHAGITIS (8) Hyponatremia Current Visit: Yes Status: Acute Assessment & Plan: - Na+ 133- Mild Code(s): E87.1 - HYPO-OSMOLALITY AND HYPONATREMIA - Discharge Discharge Date: 07/02/23 Disposition: Home, Self-Care Condition: Stable Prescriptions: Continue Omeprazole 20 MG [Prilosec 20 mg] 20 mg PO BIDAC Albuterol 2.5 mg/3 ml Neb [Proventil 2.5 mg/3 ml Neb] 1 neb IH Q6H PRN PRN Reason: sob Aspirin 81 mg PO HS Nitroglycerin 0.4 mg Tablet [Nitrostat 0.4 MG Tablet] 0.4 mg SL Q5MIN P RN MR X 3 PRN PRN Reason: Chest Pain ALPRAZolam 1 MG [Xanax 1 mg] 1 mg PO BID Isosorbide Mononitrate 60 mg [Imdur 60MG] 60 mg PO DAILY Metoprolol Tartrate 25 mg [Lopressor 25MG Tab] 25 mg PO BID Rosuvastatin Calcium 20 mg PO HS Spironolactone 25 mg [Aldactone 25 MG] 12.5 mg PO DAILY Budesonide/Glycopyr/Formoterol [Breztri Aerosphere Inhaler] 2 puffs IH BID Albuterol Sulfate [Proair Digihaler] 2 puffs IH Q6H PRN PRN Reason: sob Pramipexole Di-HCl [Mirapex] 0.25 mg PO HS Sacubitril/Valsartan [Entresto 97 mg-103 mg Tablet] 1 tab PO BID Furosemide 20 mg [Lasix 20 mg] 20 mg PO DAILY Amlodipine Besylate 2.5 mg PO DAILY Propylene Glycol/Peg 400 [Lubricating Eye Drop] 15 ml OP QID Latanoprost [Xalatan] 1 ml OP HS Carboxymethylcellulose Sodium [Refresh Liquigel] 1 ml OP HS Theophylline Anhydrous [Theophylline ER 24Hr] 400 mg PO BID #60 Prednisone 5 mg [Deltasone 5 mg] 5 mg PO DAILY #33 tablet Additional Instructions: [facility] HAS BEEN SET UP. THEY WILL CONTACT YOU TO ARRANGE A TIME TO COME SEE YOU. THEIR PHONE NUMBER IS [phone] IF YOU NEED ANYTHING PRIOR TO THEIR FIRST VISIT Hold home dose of prednisone and start the higher dose for 5 days. After that can resume if pulmonology is ok with this. Please follow up for scheduled appointment. Follow up with: ANGÉLICA STEIN [CONSULTING PHYSICIAN] - 07/17/23 2:15 pm FARHAT SEGURA DO [Primary Care Provider] - 07/10/23 3:15 pm
[2023-07-02 11:33] VITALS: BP 103/56; PULSE 59; RESP 19; TEMP 98.1; O2SAT 95
== END 2023-07-02 12:51 | disposition home health service (06) | DRG 191 ==
LOC: ED 10:36 → MED SURG 14:23 → OBSVTOIN 06-27 09:23
PROVIDERS: ADMIT Internal Medicine; ATTEND Internal Medicine
DX: J44.1 Chronic obstructive pulmonary disease with (acute) exacerbation (principal); E87.1 Hypo-osmolality and hyponatremia; I95.9 Hypotension, unspecified; D72.829 Elevated white blood cell count, unspecified; I25.10 Atherosclerotic heart disease of native coronary artery without angina pectoris; I11.0 Hypertensive heart disease with heart failure; I50.9 Heart failure, unspecified; E11.9 Type 2 diabetes mellitus without complications; K21.9 Gastro-esophageal reflux disease without esophagitis; E78.5 Hyperlipidemia, unspecified; R60.0 Localized edema; Z79.899 Other long term (current) drug therapy; Z20.828 Contact with and (suspected) exposure to other viral communicable diseases; Z99.81 Dependence on supplemental oxygen
CPT/HCPCS: 0241U; 36000; 36415; 71045; 71250; 80053; 81001; 82947; 83036; 83735; 83880; 84484; 85025; 85379; 87040; 87045; 87046; 87177; 87209; 87328; 87329; 87427; 87493; 93005; 93041; 93268; 94640; 94760; 94762; 96365; 96374; 97110; 97162; 99285; 99291; G0378; Q3014; J0456; J0696; J1650; J1817; J2920; J2930; J7609; A9270-GY

== ENCOUNTER 2023-08-16 15:10 | Observation (INO) | payer MEDICARE ==
[2023-08-16] MEDS ORDERED: DUONEB 0.5-3 MG/3 ml Neb IH ONE ×2 (15:15→15:19)
[2023-08-16] MEDS ORDERED: solu-MEDROL 125 MG, Sterile H2O 10 ml 2 ML IV ONE ×2 (15:39)
[2023-08-16 15:40] LABS: A-aADO2 128; ABG HEMOGLOBIN 12.7; ABG POTASSIUM 4.3 (3.5-5.1); ARTERIAL BLOOD GAS BASE EXCESS 5.1 (-2.0-2.0); ARTERIAL BLOOD GAS FIO2 36 %; ARTERIAL BLOOD GAS PCO2 50 mmHg (35-45); ARTERIAL BLOOD GAS PO2 66 mmHg (75-100); CARBOXYHEMOGLOBIN 1.6 % THgb (0.0-6.9); Lactic Acid 0.5 (0.4-2.0); Methhemoglobin 0.6 % (1.4-1.5); paO2 pAO1 0.34
[2023-08-16 15:41] LABS: ABG SITE LEFT BRACHIAL
--- NOTE | 2023-08-16 15:43 | ERPHSYRPT ---
- History of Present Illness Time Seen by Provider: 08/16/23 15:18 Source: patient, family, EMS Exam Limitations: no limitations Patient Subjective Stated Complaint: pt states that his stats was 85% and would not come up Triage Nursing Assessment: pt came into the er via ambulance; pt was transferred to cot per EMS staff; pt is axo x4; c/o SOB; dry hacking cough present; course crackle to LLL; use of accessory muscles; skin PDW; Physician History: 77 years old male with multiple medical problems including chronic respiratory failure secondary to COPD on 4 L oxygen, coronary artery disease, congestive heart failure, hypertension presented in the ER with chief complaint of increasing shortness of breath for the last few days which got really worse since last night and today his oxygen saturation was 85% despite using 4 L oxygen. Patient reports increased dyspnea on exertion and now having dyspnea even resting with oxygen on. Reports coughing up yellow-green sputum moderate in amount. Using neb treatments as recommended with no significant relief. No fever or chills reported. Denies off-and-on chest tightness and pressure but no pain. Allergies/Adverse Reactions: nicotine [From [employer]] Allergy (Severe, Verified 08/16/23 15:17) Rash Home Medications: Albuterol 2.5 mg/3 ml Neb [Proventil 2.5 mg/3 ml Neb] 1 neb IH Q6H PRN 02/04/14 [History] Aspirin 81 mg PO HS 02/04/14 [History] Omeprazole 20 MG [Prilosec 20 mg] 20 mg PO BIDAC 02/04/14 [History] Nitroglycerin 0.4 mg Tablet [Nitrostat 0.4 MG Tablet] 0.4 mg SL Q5MIN PRN MR X 3 PRN 08/01/16 [History] ALPRAZolam 1 MG [Xanax 1 mg] 1 mg PO BID 10/14/18 [History] Isosorbide Mononitrate 60 mg [Imdur 60MG] 60 mg PO DAILY 06/01/20 [History] Metoprolol Tartrate 25 mg [Lopressor 25MG Tab] 25 mg PO BID 06/01/20 [History] Rosuvastatin Calcium 20 mg PO HS 06/01/20 [History] Spironolactone 25 mg [Aldactone 25 MG] 12.5 mg PO DAILY 01/25/21 [History] Albuterol Sulfate [Proair Digihaler] 2 puffs IH Q6H PRN 03/24/21 [History] Budesonide/Glycopyr/Formoterol [Breztri Aerosphere Inhaler] 2 puffs IH BID 03/24/21 [History] Amlodipine Besylate 2.5 mg PO DAILY 06/12/21 [History] Furosemide 20 mg [Lasix 20 mg] 20 mg PO DAILY 06/12/21 [History] Pramipexole Di-HCl [Mirapex] 0.25 mg PO HS 06/12/21 [History] Sacubitril/Valsartan [Entresto 97 mg-103 mg Tablet] 1 tab PO BID 06/12/21 [History] Carboxymethylcellulose Sodium [Refresh Liquigel] 1 ml OP HS 09/25/21 [History] Latanoprost [Xalatan] 1 ml OP HS 09/25/21 [History] Propylene Glycol/Peg 400 [Lubricating Eye Drop] 15 ml OP QID 09/25/21 [History] Hx Tetanus, Diphtheria Vaccination/Date Given: Yes Hx Influenza Vaccination/Date Given: No Hx Pneumococcal Vaccination/Date Given: No Travel Risk - International Travel Have you traveled outside of the country in past 3 weeks: No - Coronavirus Screening Are you exhibiting any of the following symptoms?: Yes Symptoms: Shortness of Breath Close contact with a COVID-19 positive Pt in past 14-21 Days: No - Vaccine Status Have you recieved a Covid-19 vaccination: No - Review of Systems Constitutional: No Symptoms Eyes: No Symptoms Ears, Nose, & Throat: No Symptoms Respiratory: Cough, Dyspnea, Dyspnea on Exertion (GUERRA), Wheezing Cardiac: Chest Pain Abdominal/Gastrointestinal: No Symptoms Genitourinary Symptoms: No Symptoms Musculoskeletal: No Symptoms Skin: No Symptoms Neurological: No Symptoms Endocrine: No Symptoms Hematologic/Lymphatic: No Symptoms Immunological/Allergic: No Symptoms - Past Medical History Pertinent Past Medical History: Yes Neurological History: No Pertinent History ENT History: No Pertinent History Cardiac History: Aneurysm, Congestive Heart Failure, Hypertension Respiratory History: COPD, Sleep Apnea, Other Endocrine Medical History: Diabetes Type II Musculoskeletal History: No Pertinent History GI Medical History: No Pertinent History, GERD History: No Pertinent History Psycho-Social History: Anxiety Male Reproductive Disorders: No Pertinent History Other Medical History: 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 PT wears 4L O2 AT ALL TIMES - Past Surgical History Past Surgical History: Yes Neuro Surgical History: No Pertinent History Cardiac: No Pertinent History Respiratory: Other Gastrointestinal: Hernia Repair Genitourinary: No Pertinent History Musculoskeletal: Orthopedic Surgery Male Surgical History: Vasectomy Other Surgical History: BACK SURGERY, and ear surgery and a left lung biopsy. 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, double hernia repair, - Social History Smoking Status: Former smoker How long have you smoked: 13 Exposure to second hand smoke: No Drug Use: none Patient Lives Alone: No Significant Family History: no pertinent family hx - Nursing Vital Signs Nursing Vital Signs: Initial Vital Signs Temperature 98.8 F 08/16/23 15:20 Pulse Rate 88 08/16/23 15:20 Respiratory Rate 24 08/16/23 15:20 Blood Pressure 140/85 08/16/23 15:20 O2 Sat by Pulse Oximetry 90 L 08/16/23 15:20 Pain Scale Pain Intensity 0 - Physical Exam General Appearance: no apparent distress, alert Eye Exam: PERRL/EOMI Ears, Nose, Throat Exam: hearing grossly normal Neck Exam: normal inspection, full range of motion Respiratory Exam: diminished breath sounds, rhonchi, wheezing Cardiovascular/Chest Exam: normal heart sounds, regular rate/rhythm Abdominal/Gastrointestinal Exam: soft, normal bowel sounds, No tenderness Extremity Exam: non-tender, normal range of motion Neurologic Exam: alert, oriented x 3, cooperative Skin Exam: normal color SpO2 Interpretation: O2 applied SpO2: 91 O2 Delivery: Nasal Cannula (5 L) - Course EKG Interpreted by Me: RATE (85), Sinus Rhythm, Right Maurice Deviation, Right Bundle Branch Block, Non-specific ST Changes Ordered Tests: Active Orders 24 hr Category Date Time Status Video Network Engineer STAT Care 08/16/23 15:39 Active EKG-ER Only STAT Care 08/16/23 15:39 Active IV Insertion STAT Care 08/16/23 15:39 Active Oxygen-ED Only Nasal Cannula 5 lpm Care 08/16/23 15:39 Active CHEST 1 VIEW (PORTABLE) Stat Exams 08/16/23 15:39 Completed ARTERIAL BLOOD GASES Stat Lab 08/16/23 15:39 Completed BLOOD CULTURE Stat Lab 08/16/23 16:22 Received CBC W DIFF Stat Lab 08/16/23 15:39 Completed CMP Stat Lab 08/16/23 16:10 Completed Lactic Acid Stat Lab 08/16/23 15:39 Completed MAGNESIUM Stat Lab 08/16/23 16:10 Completed NT PRO BNPII Stat Lab 08/16/23 16:10 Completed TROPONIN Q4H Lab 08/16/23 16:10 Completed TROPONIN Q4H Lab 08/16/23 19:45 Ordered TROPONIN Q4H Lab 08/16/23 23:45 Ordered Respiratory Therapy Assessment DAILY RT 08/16/23 15:21 Active Transfer Order Routine Transfer 08/16/23 Ordered Medication Summary Generic Name Dose Route Start Last Admin Trade Name Freq PRN Reason Stop Dose Admin Azithromycin 500 mg in 250 mls @ 250 mls/hr 08/16/23 17:14 Zithromax 500 Mg/ 250 Ml Nacl Premix IV 08/16/23 18:13 STAT STA Ceftriaxone Sodium/Dextrose 2 g in 50 mls @ 100 mls/hr 08/16/23 17:14 Rocephin 2 Gm-D5w 50ml Bag IV 08/16/23 17:43 STAT STA Discontinued Medications Generic Name Dose Route Start Last Admin Trade Name Freq PRN Reason Stop Dose Admin Albuterol/Ipratropium Confirm 08/16/23 15:15 Ipratropium/Albuterol Sulfate 3 Ml Ampul.Neb Administered 08/16/23 15:16 Dose 3 ml IH .STK-MED ONE Albuterol/Ipratropium 3 ml 08/16/23 15:19 08/16/23 15:20 Ipratropium/Albuterol Sulfate 3 Ml Ampul.Neb IH 08/16/23 15:20 3 ml STAT ONE Administration Methylprednisolone Sodium 0 mg 08/16/23 15:39 08/16/23 15:55 Succinate 125 mg/ Sterile IV 08/16/23 15:40 Not Given Water 2 ml STAT ONE Lab/Rad Data: Laboratory Result Diagrams 08/16/23 15:39 08/16/23 16:10 Laboratory Results 08/16/23 08/16/23 08/16/23 Range/Units Unknown 16:10 16:10 WBC (4.0-10.5) x10^3/uL RBC (4.1-5.6) x10^6/uL Hgb (12.5-18.0) g/dL Hct (42-50) % MCV (78-100) fL MCH (26-32) pg MCHC (32-36) g/dL RDW (11.5-14.0) % Plt Count (150-450) x10^3/uL MPV (7.5-11.0) fL Gran % (36.0-66.0) % Immature Gran % (Auto) (0.00-0.4) % Nucleat RBC Rel Count (0.00-0.1) % Eos # (Auto) (0-0.5) x10^3/uL Immature Gran # (Auto) (0.00-0.03) x10^3u/L Absolute Lymphs (auto) (1.0-4.6) x10^3/uL Absolute Monos (auto) (0.0-1.3) x10^3/uL Absolute Nucleated RBC (0.00-0.01) x10^3u/L Lymphocytes % (24.0-44.0) % Monocytes % (0.0-12.0) % Eosinophils % (0.00-5.0) % Basophils % (0.0-0.4) % Absolute Granulocytes (1.4-6.9) x10^3/uL Basophils # (0-0.4) x10^3/uL Puncture Site pCO2 (35-45) mmHg pO2 (75-100) mmHg Base Excess (-2.0-2.0) O2 Saturation (94-100) g/dF ABG pH (7.35-7.45) ABG HCO3 (22-28) ABG O2 Sat (Measured) (95-100) % Gokul Test A-a Gradient a/A Ratio Hemoglobin Carboxyhemoglobin (0.0-6.9) % THgb Methemoglobin (1.4-1.5) % Potassium 4.3 (3.5-5.1) Temperature C POC O2 Flow Rate % Sodium 138 (137-145) mmol/L Chloride 99 (98-107) mmol/L Carbon Dioxide 32 H (22-30) mmol/L Anion Gap 10.5 (5-15) MEQ/L BUN 12 (9-20) mg/dL Creatinine 0.69 (0.66-1.25) mg/dL Estimated GFR 95.9 ML/MIN Glucose 116 H (74-106) mg/dL Lactic Acid (0.4-2.0) Calcium 9.9 (8.4-10.2) mg/dL Magnesium 1.9 (1.6-2.3) mg/dL Total Bilirubin 1.20 (0.2-1.3) mg/dL AST 30 (17-59) U/L ALT 20 (0-50) U/L Alkaline Phosphatase 58 (38-126) U/L Troponin I < 0.012 (0.000-0.034) ng/mL NT-Pro-B Natriuret Pep 1150 (<300) pg/mL Serum Total Protein 7.1 (6.3-8.2) g/dL Albumin 4.4 (3.5-5.0) g/dL Influenza Type A Ag NEGATIVE (NEGATIVE) Influenza Type B Ag NEGATIVE (NEGATIVE) RSV (PCR) NEGATIVE (NEGATIVE) SARS-CoV-2 (PCR) NEGATIVE (NEGATIVE) 08/16/23 08/16/23 Range/Units 15:39 15:39 WBC 7.9 (4.0-10.5) x10^3/uL RBC 4.86 (4.1-5.6) x10^6/uL Hgb 12.7 (12.5-18.0) g/dL Hct 41.8 L (42-50) % MCV 86.0 (78-100) fL MCH 26.1 (26-32) pg MCHC 30.4 L (32-36) g/dL RDW 14.8 H (11.5-14.0) % Plt Count 230 (150-450) x10^3/uL MPV 9.9 (7.5-11.0) fL Gran % 84.0 H (36.0-66.0) % Immature Gran % (Auto) 0.4 (0.00-0.4) % Nucleat RBC Rel Count 0.0 (0.00-0.1) % Eos # (Auto) 0.07 (0-0.5) x10^3/uL Immature Gran # (Auto) 0.03 (0.00-0.03) x10^3u/L Absolute Lymphs (auto) 0.78 L (1.0-4.6) x10^3/uL Absolute Monos (auto) 0.33 (0.0-1.3) x10^3/uL Absolute Nucleated RBC 0.00 (0.00-0.01) x10^3u/L Lymphocytes % 9.9 L (24.0-44.0) % Monocytes % 4.2 (0.0-12.0) % Eosinophils % 0.9 (0.00-5.0) % Basophils % 0.6 (0.0-0.4) % Absolute Granulocytes 6.62 (1.4-6.9) x10^3/uL Basophils # 0.05 (0-0.4) x10^3/uL Puncture Site LEFT BRACHIAL pCO2 50 H (35-45) mmHg pO2 66 L (75-100) mmHg Base Excess 5.1 H (-2.0-2.0) O2 Saturation 91.0 L (94-100) g/dF ABG pH 7.40 (7.35-7.45) ABG HCO3 31.0 H* (22-28) ABG O2 Sat (Measured) 93.0 L (95-100) % Gokul Test NOT APPLICABLE A-a Gradient 128 a/A Ratio 0.34 Hemoglobin 12.7 Carboxyhemoglobin 1.6 (0.0-6.9) % THgb Methemoglobin 0.6 L (1.4-1.5) % Potassium 4.3 (3.5-5.1) Temperature 37.0 C POC O2 Flow Rate 36 % Sodium (137-145) mmol/L Chloride (98-107) mmol/L Carbon Dioxide (22-30) mmol/L Anion Gap (5-15) MEQ/L BUN (9-20) mg/dL Creatinine (0.66-1.25) mg/dL Estimated GFR ML/MIN Glucose (74-106) mg/dL Lactic Acid 0.5 (0.4-2.0) Calcium (8.4-10.2) mg/dL Magnesium (1.6-2.3) mg/dL Total Bilirubin (0.2-1.3) mg/dL AST (17-59) U/L ALT (0-50) U/L Alkaline Phosphatase (38-126) U/L Troponin I (0.000-0.034) ng/mL NT-Pro-B Natriuret Pep (<300) pg/mL Serum Total Protein (6.3-8.2) g/dL Albumin (3.5-5.0) g/dL Influenza Type A Ag (NEGATIVE) Influenza Type B Ag (NEGATIVE) RSV (PCR) (NEGATIVE) SARS-CoV-2 (PCR) (NEGATIVE) - Progress Progress: improved, re-examined Air Movement: fair Progress Note: 08/16/23 17:29 77 years old is evaluated for increasing shortness of breath and cough productive of yellow-green sputum. Patient is getting hypoxic despite being on oxygen at home to 85% checked by home health nurse. Patient is given DuoNeb and Solu-Medrol in route to ER and received another DuoNeb on presentation in the ER, on reevaluation feeling much better. Initially he was on 6 L and now is on 5 L with sats around 92 to 94%. Chest x-ray negative for any acute cardiopulmonary findings. Normal white count, fairly unremarkable chemistries and negative troponins. I believe patient has COPD exacerbation and given a dose of Rocephin and Zithromax. Discussed with Dr. Shin, reviewed history, workup and agreed with admission. I have reviewed the results of workup with patient and family and plan of admission which they understand and agree with it. Blood Culture(s) Obtained: Yes Antibiotics given: Yes Discussed with : Frank Will see patient in: hospital (observation) Counseled pt/family regarding: lab results, diagnosis, rad results Medical Desision Making - Independent Historian Additional History obtained from: Spouse, Crisis Mental Health Therapist/EMT - Discussion of managment Care discussed with:: hospitalist Reviewed:: Test results Agreed on:: Treatment plan Will see patient: in hospital - Diagnostic Testing Diagnostic test were ordered, analyzed, and reviewed by me: Yes Radiological Interpretation: Reviewed by me - Risk of complications The pt has a high risk of morbidity or mortality based on: Decision regarding hospitilization or escalation of hosp level of care - Departure Departure Disposition: Observation Clinical Impression: COPD exacerbation Condition: Stable Critical Care Time: No Referrals: FARHAT SEGURA DO [Primary Care Provider] - Follow up/PCP as directed Instructions: Chronic Obstructive Pulmonary Disease
--- NOTE | 2023-08-16 16:21 | XRAY ---
Indication: Short of breath. COPD. Comparison: June 18, 2023 Portable chest unchanged again demonstrating COPD, bibasilar fibrosis/scarring, and left upper lung suture material. No focal infiltrate, consolidation, or large effusion. Heart not enlarged. Bony thorax intact again with osteopenia. Impression: Continued nonacute chest with chronic features.
[2023-08-16 16:31] LABS: Absolute Neutrophil Ct (ANC) 6.62 x10^3/uL (1.4-6.9); BASOPHIL % 0.6 % (0.0-0.4); Basophil (Absolute #) 0.05 x10^3/uL (0-0.4); Eosinophil % 0.9 % (0.00-5.0); Eosinophil (Absolute #) 0.07 x10^3/uL (0-0.5); Hematocrit 41.8 % (42-50); Hemoglobin 12.7 g/dL (12.5-18.0); IMMATURE GRAN # 0.03 x10^3u/L (0.00-0.03); IMMATURE GRAN % 0.4 % (0.00-0.4); Lymphocyte (Absolute #) 0.78 x10^3/uL (1.0-4.6); Lymphocytes % 9.9 % (24.0-44.0); Mean Corpuscular Hemoglobin 26.1 pg (26-32); Mean Corpuscular Hgb Concent. 30.4 g/dL (32-36); Mean Platelet Volume 9.9 fL (7.5-11.0); Monocyte (Absolute #) 0.33 x10^3/uL (0.0-1.3); Monocytes % 4.2 % (0.0-12.0); Platelet Count 230 x10^3/uL (150-450); Red Blood Count 4.86 x10^6/uL (4.1-5.6); Red Cell Distribution Width 14.8 % (11.5-14.0); White Blood Count 7.9 x10^3/uL (4.0-10.5)
[2023-08-16 16:56] LABS: ALBUMIN 4.4 g/dL (3.5-5.0); ANION GAP 10.5 MEQ/L (5-15); BILIRUBIN,TOTAL 1.2 mg/dL (0.2-1.3); Calcium 9.9 mg/dL (8.4-10.2); Creatinine 1 0.69 mg/dL (0.66-1.25); EST GLOMERULAR FILTRATION RATE 95.9 ML/MIN; MAGNESIUM 1.9 mg/dL (1.6-2.3); Potassium 4.3 mmol/L (3.5-5.1); Total Protein 7.1 g/dL (6.3-8.2)
[2023-08-16 17:07] LABS: INFLUENZA A NEGATIVE (NEGATIVE); INFLUENZA B NEGATIVE (NEGATIVE); RESPIRATORY SYNCTIAL VIRUS NEGATIVE (NEGATIVE); SARS-CoV-2 Xpert Express NEGATIVE (NEGATIVE)
[2023-08-16] MEDS ORDERED: Zithromax 500 MG/ 250 ML NaCl Premix 500 MG/250 ML IVPB IV STA (17:14)
[2023-08-16] MEDS ORDERED: ROCEPHIN 2 Gm-D5w 50ML BAG** 2 G/50 ML IVPB IV STA (17:14)
[2023-08-16] MEDS ORDERED: Zithromax 500 MG/ 250 ML NaCl Premix 500 MG/250 ML IVPB IV ONE (17:37)
[2023-08-16] MEDS ORDERED: ROCEPHIN 2 Gm-D5w 50ML BAG** 2 G/50 ML IVPB IV ONE (17:37)
[2023-08-16] MEDS ORDERED: TYLENOL 325 MG PO PRN (18:37)
[2023-08-16] MEDS ORDERED: Compazine 10 MG/2 ML IM PRN (18:38)
--- NOTE | 2023-08-16 19:03 | PCM.HP ---
History of Present Illness - Chief Complaint Chief Complaint: COPD exacerbation Date: 08/16/23 History of Present Illness: is a 77 year old male with PMHX of chronic respiratory failure secondary to COPD on 4 L oxygen, coronary artery disease, congestive heart failure, hypertension. He presented in the ER with chief complaint of increasing shortness of breath for the last few days which got really worse since last night and today his oxygen saturation was 85% despite using 4 L oxygen. Patient reports increased dyspnea on exertion and now having dyspnea even resting with oxygen on. Reports coughing up yellow-green sputum moderate in amount. Using neb treatments as recommended with no significant relief. No fever or chills reported. Denies off-and-on chest tightness and pressure but no pain. Chest XR negative for acute process. Will continue to treat for COPD exacerbation. Pt received duonebs, steriods, antibiotics in ER. Will continue same plan of care. He reports he does wear an AVAPS machine at night. Will continue. Will change O2 to oxymizer since on 7L @ 93%. - Review of Systems Constitutional: No Fever, No Chills Eyes: No Symptoms Ears, Nose, & Throat: No Symptoms Respiratory: Cough, Short Of Breath Cardiac: No Chest Pain, No Edema, No Syncope Abdominal/Gastrointestinal: No Abdominal Pain, No Nausea, No Vomiting, No Diarrhea Genitourinary Symptoms: No Dysuria Musculoskeletal: No Back Pain, No Neck Pain Skin: No Rash Neurological: No Dizziness, No Focal Weakness, No Sensory Changes Psychological: No Symptoms Endocrine: No Symptoms Hematologic/Lymphatic: No Symptoms Immunological/Allergic: No Symptoms Medications & Allergies Home Medications: Home Medication List Albuterol 2.5 mg/3 ml Neb [Proventil 2.5 mg/3 ml Neb] 1 neb IH Q6H PRN 02/04/14 [History Confirmed 08/16/23] Aspirin 81 mg PO HS 02/04/14 [History Confirmed 08/16/23] Omeprazole 20 MG [Prilosec 20 mg] 20 mg PO BIDAC 02/04/14 [History Confirmed 08/16/23] Nitroglycerin 0.4 mg Tablet [Nitrostat 0.4 MG Tablet] 0.4 mg SL Q5MIN PRN MR X 3 PRN 08/01/16 [History Confirmed 08/16/23] ALPRAZolam 1 MG [Xanax 1 mg] 1 mg PO BID 10/14/18 [History Confirmed 08/16/23] Isosorbide Mononitrate 60 mg [Imdur 60MG] 60 mg PO DAILY 06/01/20 [History Confirmed 08/16/23] Metoprolol Tartrate 25 mg [Lopressor 25MG Tab] 25 mg PO BID 06/01/20 [History Confirmed 08/16/23] Rosuvastatin Calcium 20 mg PO HS 06/01/20 [History Confirmed 08/16/23] Spironolactone 25 mg [Aldactone 25 MG] 12.5 mg PO DAILY 01/25/21 [History Confirmed 08/16/23] Albuterol Sulfate [Proair Digihaler] 2 puffs IH Q6H PRN 03/24/21 [History Confirmed 08/16/23] Budesonide/Glycopyr/Formoterol [Breztri Aerosphere Inhaler] 2 puffs IH BID 03/24/21 [History Confirmed 08/16/23] Amlodipine Besylate 2.5 mg PO DAILY 06/12/21 [History Confirmed 08/16/23] Furosemide 20 mg [Lasix 20 mg] 20 mg PO DAILY 06/12/21 [History Confirmed 08/16/23] Pramipexole Di-HCl [Mirapex] 0.25 mg PO HS 06/12/21 [History Confirmed 08/16/23] Sacubitril/Valsartan [Entresto 97 mg-103 mg Tablet] 1 tab PO BID 06/12/21 [History Confirmed 08/16/23] Carboxymethylcellulose Sodium [Refresh Liquigel] 1 ml OP HS 09/25/21 [History Confirmed 08/16/23] Latanoprost [Xalatan] 1 ml OP HS 09/25/21 [History Confirmed 08/16/23] Propylene Glycol/Peg 400 [Lubricating Eye Drop] 15 ml OP QID 09/25/21 [History Confirmed 08/16/23] Theophylline Anhydrous [Theophylline ER 24Hr] 400 mg PO BID #60 11/20/21 [Rx Confirmed 08/16/23] Prednisone 5 mg [Deltasone 5 mg] 5 mg PO DAILY #33 tablet 12/18/22 [Rx Confirmed 08/16/23] Allergies/Adverse Reactions: Allergies Allergy/AdvReac Type Severity Reaction Status Date / Time nicotine [From Nicoderm CQ] Allergy Severe Rash Verified 08/16/23 15:17 - Past Medical History Past Medical History: Yes Neurological History: No Pertinent History ENT History: No Pertinent History Cardiac History: Aneurysm, Congestive Heart Failure, Hypertension Respiratory History: COPD, Sleep Apnea, Other Endocrine Medical History: Diabetes Type II Musculoskelatal History: No Pertinent History GI Medical History: No Pertinent History, GERD History: No Pertinent History Pyscho-Social History: Anxiety Male Reproductive Disorders: No Pertinent History Comment: 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 PT wears 4L O2 AT ALL TIMES - Past Surgical History Past Surgical History: Yes Neuro Surgical History: No Pertinent History Cardiac History: No Pertinent History Respiratory Surgery: Other GI Surgical History: Hernia Repair Genitourinary Surgical Hx: No Pertinent History Musculskeletal Surgical Hx: Orthopedic Surgery Male Surgical History: Vasectomy Other Surgical History: BACK SURGERY, and ear surgery and a left lung biopsy. 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, double hernia repair, - Social History Smoking Status: Former smoker How long have you smoked: 13 Exposure to second hand smoke: No Alcohol: None Drug Use: none Significant Family History: no pertinent family hx - Physical Exam Vital Signs: Vital Signs - 24 hr Temp Pulse Resp BP BP Pulse Ox 08/16/23 18:28 88 L 08/16/23 18:06 97.1 F 92 H 24 142/80 93 L 08/16/23 17:30 91 L 08/16/23 17:30 124/73 08/16/23 17:00 86 21 129/75 94 L 08/16/23 16:30 88 21 138/82 90 L 08/16/23 16:00 81 20 133/80 92 L 08/16/23 15:21 85 22 91 L 08/16/23 15:20 98.8 F 88 22 140/85 90 L General Appearance: no apparent distress, alert Neurologic Exam: alert, oriented x 3, cooperative, normal mood/affect, nml cerebellar function, nml station & gait, sensation nml, No motor deficits Eye Exam: PERRL/EOMI, eyes nml inspection Ears, Nose, Throat Exam: normal ENT inspection, TMs normal, pharynx normal, moist mucous membranes Neck Exam: normal inspection, non-tender, supple, full range of motion Respiratory Exam: diminished breath sounds, No respiratory distress Cardiovascular Exam: regular rate/rhythm, normal heart sounds, normal peripheral pulses Gastrointestinal/Abdomen Exam: soft, normal bowel sounds, No tenderness, No mass Back Exam: normal inspection, normal range of motion, No CVA tenderness, No vertebral tenderness Extremity Exam: normal inspection, normal range of motion, pelvis stable Skin Exam: normal color, warm, dry, No rash Lymphatic Exam: No adenopathy Results - Labs Lab/Micro Results: Lab Results-Last 24 Hours 08/16/23 08/16/23 08/16/23 Range/Units 15:39 15:39 16:10 WBC 7.9 (4.0-10.5) x10^3/uL RBC 4.86 (4.1-5.6) x10^6/uL Hgb 12.7 (12.5-18.0) g/dL Hct 41.8 L (42-50) % MCV 86.0 (78-100) fL MCH 26.1 (26-32) pg MCHC 30.4 L (32-36) g/dL RDW 14.8 H (11.5-14.0) % Plt Count 230 (150-450) x10^3/uL MPV 9.9 (7.5-11.0) fL Gran % 84.0 H (36.0-66.0) % Immature Gran % (Auto) 0.4 (0.00-0.4) % Nucleat RBC Rel Count 0.0 (0.00-0.1) % Eos # (Auto) 0.07 (0-0.5) x10^3/uL Immature Gran # (Auto) 0.03 (0.00-0.03) x10^3u/L Absolute Lymphs (auto) 0.78 L (1.0-4.6) x10^3/uL Absolute Monos (auto) 0.33 (0.0-1.3) x10^3/uL Absolute Nucleated RBC 0.00 (0.00-0.01) x10^3u/L Lymphocytes % 9.9 L (24.0-44.0) % Monocytes % 4.2 (0.0-12.0) % Eosinophils % 0.9 (0.00-5.0) % Basophils % 0.6 (0.0-0.4) % Absolute Granulocytes 6.62 (1.4-6.9) x10^3/uL Basophils # 0.05 (0-0.4) x10^3/uL Puncture Site LEFT BRACHIAL pCO2 50 H (35-45) mmHg pO2 66 L (75-100) mmHg Base Excess 5.1 H (-2.0-2.0) O2 Saturation 91.0 L (94-100) g/dF ABG pH 7.40 (7.35-7.45) ABG HCO3 31.0 H* (22-28) ABG O2 Sat (Measured) 93.0 L (95-100) % Gokul Test NOT APPLICABLE A-a Gradient 128 a/A Ratio 0.34 Hemoglobin 12.7 Carboxyhemoglobin 1.6 (0.0-6.9) % THgb Methemoglobin 0.6 L (1.4-1.5) % Potassium 4.3 4.3 (3.5-5.1) Temperature 37.0 C POC O2 Flow Rate 36 % Sodium 138 (137-145) mmol/L Chloride 99 (98-107) mmol/L Carbon Dioxide 32 H (22-30) mmol/L Anion Gap 10.5 (5-15) MEQ/L BUN 12 (9-20) mg/dL Creatinine 0.69 (0.66-1.25) mg/dL Estimated GFR 95.9 ML/MIN Glucose 116 H (74-106) mg/dL Lactic Acid 0.5 (0.4-2.0) Calcium 9.9 (8.4-10.2) mg/dL Magnesium 1.9 (1.6-2.3) mg/dL Total Bilirubin 1.20 (0.2-1.3) mg/dL AST 30 (17-59) U/L ALT 20 (0-50) U/L Alkaline Phosphatase 58 (38-126) U/L Troponin I (0.000-0.034) ng/mL NT-Pro-B Natriuret Pep 1150 (<300) pg/mL Serum Total Protein 7.1 (6.3-8.2) g/dL Albumin 4.4 (3.5-5.0) g/dL Influenza Type A Ag (NEGATIVE) Influenza Type B Ag (NEGATIVE) RSV (PCR) (NEGATIVE) SARS-CoV-2 (PCR) (NEGATIVE) 08/16/23 08/16/23 Range/Units 16:10 Unknown WBC (4.0-10.5) x10^3/uL RBC (4.1-5.6) x10^6/uL Hgb (12.5-18.0) g/dL Hct (42-50) % MCV (78-100) fL MCH (26-32) pg MCHC (32-36) g/dL RDW (11.5-14.0) % Plt Count (150-450) x10^3/uL MPV (7.5-11.0) fL Gran % (36.0-66.0) % Immature Gran % (Auto) (0.00-0.4) % Nucleat RBC Rel Count (0.00-0.1) % Eos # (Auto) (0-0.5) x10^3/uL Immature Gran # (Auto) (0.00-0.03) x10^3u/L Absolute Lymphs (auto) (1.0-4.6) x10^3/uL Absolute Monos (auto) (0.0-1.3) x10^3/uL Absolute Nucleated RBC (0.00-0.01) x10^3u/L Lymphocytes % (24.0-44.0) % Monocytes % (0.0-12.0) % Eosinophils % (0.00-5.0) % Basophils % (0.0-0.4) % Absolute Granulocytes (1.4-6.9) x10^3/uL Basophils # (0-0.4) x10^3/uL Puncture Site pCO2 (35-45) mmHg pO2 (75-100) mmHg Base Excess (-2.0-2.0) O2 Saturation (94-100) g/dF ABG pH (7.35-7.45) ABG HCO3 (22-28) ABG O2 Sat (Measured) (95-100) % Gokul Test A-a Gradient a/A Ratio Hemoglobin Carboxyhemoglobin (0.0-6.9) % THgb Methemoglobin (1.4-1.5) % Potassium (3.5-5.1) Temperature C POC O2 Flow Rate % Sodium (137-145) mmol/L Chloride (98-107) mmol/L Carbon Dioxide (22-30) mmol/L Anion Gap (5-15) MEQ/L BUN (9-20) mg/dL Creatinine (0.66-1.25) mg/dL Estimated GFR ML/MIN Glucose (74-106) mg/dL Lactic Acid (0.4-2.0) Calcium (8.4-10.2) mg/dL Magnesium (1.6-2.3) mg/dL Total Bilirubin (0.2-1.3) mg/dL AST (17-59) U/L ALT (0-50) U/L Alkaline Phosphatase (38-126) U/L Troponin I < 0.012 (0.000-0.034) ng/mL NT-Pro-B Natriuret Pep (<300) pg/mL Serum Total Protein (6.3-8.2) g/dL Albumin (3.5-5.0) g/dL Influenza Type A Ag NEGATIVE (NEGATIVE) Influenza Type B Ag NEGATIVE (NEGATIVE) RSV (PCR) NEGATIVE (NEGATIVE) SARS-CoV-2 (PCR) NEGATIVE (NEGATIVE) - Radiology Impressions Radiology Exams & Impressions: Radiology Procedures Category Date Time Status CHEST 1 VIEW (PORTABLE) Stat Exams 08/16/23 15:39 Completed - Other Procedures and Tests Respiratory Therapy 08/16/23 17:57 Oxygen Nasal Cannula 5 lpm Respiratory Therapy Consult ONCE Assessment/Plan (1) COPD exacerbation Current Visit: Yes Status: Chronic Assessment & Plan: - Continue AVAPS at night- RT aware - mucinex, antibiotics, steroids, duonebs - 7 L oxymizer 92%- Baseline home O2 4LNC - Chest XR negative - TELE Code(s): J44.1 - CHRONIC OBSTRUCTIVE PULMONARY DISEASE W (ACUTE) EXACERBATION (2) Anxiety Current Visit: Yes Status: Acute Assessment & Plan: - Continue home med Code(s): F41.9 - ANXIETY DISORDER, UNSPECIFIED (3) Productive cough Current Visit: No Status: Acute Assessment & Plan: - Mucinex Code(s): R05.8 - OTHER SPECIFIED COUGH (4) HTN (hypertension) Current Visit: Yes Status: Chronic Assessment & Plan: - continue home meds - BP stable VTE: Lovenox PPI: Prilosec Next of Kin: sister- Daija Zaragoza [phone] D/C plan: 1-2 days Code status: Full Code(s): I10 - ESSENTIAL (PRIMARY) HYPERTENSION
[2023-08-16] MEDS: DUONEB 0.5-3 MG/3 ml Neb IH SCH (19:19)
[2023-08-16] MEDS ORDERED: ECOTRIN 81 MG PO ONE (21:45)
[2023-08-16] MEDS ORDERED: NON-FORMULARY ITEM (Aspirin [Aspirin] 81 MG Tablet) PO SCH (22:00)
[2023-08-16] MEDS ORDERED: CARBOXYMETHYLCELLULOSE SODIUM OP SCH (22:00)
[2023-08-16] MEDS ORDERED: PROPYLENE GLYCOL OP SCH (22:00)
[2023-08-16] MEDS ORDERED: Xalatan OP SCH (22:00)
[2023-08-16] MEDS ORDERED: NON-FORMULARY ITEM (Rosuvastatin Calcium [Rosuvastatin Calcium] 20 MG Tablet) PO SCH (22:00)
[2023-08-16] MEDS ORDERED: PEG OP SCH (22:00)
[2023-08-16] MEDS ORDERED: NON-FORMULARY ITEM (Sacubitril/Valsartan [Entresto 97 Mg-103 Mg Tablet] 1 EACH Tablet) PO SCH (22:00)
[2023-08-16] MEDS ORDERED: PRAMIPEXOLE DI HCL 0.25 MG PO SCH (22:00)
[2023-08-16] MEDS: Lopressor 25MG Tab PO SCH (22:17)
[2023-08-16] MEDS: Mucinex 600MG ER Tabs PO SCH (22:17)
[2023-08-16] MEDS: XANAX 1 MG PO SCH (22:17)
[2023-08-16] MEDS: DELTASONE 20 MG PO SCH (22:17)
[2023-08-16] MEDS: THEOPHYLLINE ER 24HR PO SCH (23:20)
[2023-08-17] MEDS: DUONEB 0.5-3 MG/3 ml Neb IH SCH ×4 (01:05→19:05)
[2023-08-17 05:04] LABS: Hematocrit 41.1 % (42-50); Hemoglobin 12.5 g/dL (12.5-18.0); Mean Cell Volume 84.6 fL (78-100); Mean Corpuscular Hemoglobin 25.7 pg (26-32); Mean Corpuscular Hgb Concent. 30.4 g/dL (32-36); Mean Platelet Volume 9.9 fL (7.5-11.0); Platelet Count 194 x10^3/uL (150-450); Red Blood Count 4.86 x10^6/uL (4.1-5.6); Red Cell Distribution Width 14.6 % (11.5-14.0); White Blood Count 5.7 x10^3/uL (4.0-10.5)
[2023-08-17 05:39] LABS: ALBUMIN 3.6 g/dL (3.5-5.0); ANION GAP 7.2 MEQ/L (5-15); BILIRUBIN,TOTAL 0.7 mg/dL (0.2-1.3); Calcium 9.2 mg/dL (8.4-10.2); Creatinine 1 0.5 mg/dL (0.66-1.25); EST GLOMERULAR FILTRATION RATE 105.7 ML/MIN; Potassium 4.4 mmol/L (3.5-5.1); Total Protein 6.1 g/dL (6.3-8.2)
[2023-08-17] MEDS: Advair Hfa 115/21 Common canister IH SCH ×2 (06:30→19:06)
[2023-08-17] MEDS ORDERED: ADVAIR 500-50 DISKUS IH SCH (07:00)
[2023-08-17] MEDS: Protonix 40MG Tablet PO SCH ×2 (07:23→16:37)
[2023-08-17] MEDS ORDERED: NON-FORMULARY ITEM (Omeprazole 20 Mg [Prilosec 20 Mg] 20 MG Capsule.Dr) PO SCH (07:30)
[2023-08-17] MEDS ORDERED: MEDICATION INTERVENTION MC SCH (07:45)
[2023-08-17] MEDS: ENOXAPARIN SODIUM SQ SCH (09:27)
[2023-08-17] MEDS: DELTASONE 20 MG PO SCH ×2 (09:28→21:33)
[2023-08-17] MEDS: Imdur 60MG PO SCH (09:28)
[2023-08-17] MEDS: Aldactone 25 MG PO SCH (09:28)
[2023-08-17] MEDS: LASIX 20 MG PO SCH (09:28)
[2023-08-17] MEDS: Mucinex 600MG ER Tabs PO SCH ×2 (09:28→21:32)
[2023-08-17] MEDS: ENTRESTO 49 MG-51 MG TABLET PO SCH ×2 (09:29→21:33)
[2023-08-17] MEDS: NORVASC 5 MG PO SCH (09:29)
[2023-08-17] MEDS: XANAX 1 MG PO SCH ×2 (09:29→21:33)
[2023-08-17] MEDS: Lopressor 25MG Tab PO SCH ×2 (09:29→21:33)
[2023-08-17] MEDS: THEOPHYLLINE ER 24HR PO SCH ×2 (09:29→21:52)
[2023-08-17] MEDS: Artificial Tears 15 ML OP SCH ×4 (09:36→21:51)
[2023-08-17] MEDS: ROCEPHIN 1 Gm-D5w 50 ml Bag** 1 G/50 ML IVPB IV SCH (09:40)
[2023-08-17] MEDS ORDERED: NON-FORMULARY ITEM (Amlodipine Besylate [Amlodipine Besylate] 2.5 MG Tablet) PO SCH (10:00)
--- NOTE | 2023-08-17 12:34 | PCM.NOTE ---
Date and Time: 08/17/23 1227 Subjective Assessment: 08/16/23 is a 77 year old male with PMHX of chronic respiratory failure secondary to COPD on 4 L oxygen, coronary artery disease, congestive heart failure, hypertension. He presented in the ER with chief complaint of increasing shortness of breath for the last few days which got really worse sinc e last night and today his oxygen saturation was 85% despite using 4 L oxygen. Patient reports increased dyspnea on exertion and now having dyspnea even resting with oxygen on. Reports coughing up yellow-green sputum moderate in amount. Using neb treatments as recommended with no significant relief. No fever or chills reported. Denies off-and-on chest tightness and pressure but no pain. Chest XR negative for acute process. Will continue to treat for COPD exacerbation. Pt received duonebs, steriods, antibiotics in ER. Will continue same plan of care. He reports he does wear an AVAPS machine at night. Will continue. Will change O2 to oxymizer since on 7L @ 93%. 08/17/23 Pt resting in bed. SOB has improved. He explained he still feels a bit SOB and would like to stay 1 more day. He refused to wear our AVAPS machine last night and only likes his home machine. Family was unable to bring in his home machine due to weather. He is at baseline oxygen 4-5 L. Lung sounds clear today. He [place] es CP, Abd. pain, N/V/D. - Review of Systems Constitutional: No Fever, No Chills Eyes: No Symptoms Ears, Nose, & Throat: No Symptoms Respiratory: No Cough, No Short Of Breath Cardiac: No Chest Pain, No Edema, No Syncope Abdominal/Gastrointestinal: No Abdominal Pain, No Nausea, No Vomiting, No Diarrhea Genitourinary Symptoms: No Dysuria Musculoskeletal: No Back Pain, No Neck Pain Skin: No Rash Neurological: No Dizziness, No Focal Weakness, No Sensory Changes Psychological: No Symptoms Endocrine: No Symptoms Hematologic/Lymphatic: No Symptoms Immunological/Allergic: No Symptoms Objective Exam General Appearance: no apparent distress, alert Neurologic Exam: alert, oriented x 3, cooperative, normal mood/affect, nml cerebellar function, sensation nml, No motor deficits Skin Exam: normal color, warm, dry Eye Exam: PERRL, EOMI, eyes nml inspection Ears, Nose, Throat Exam: normal ENT inspection, pharynx normal, moist mucous membranes Neck Exam: normal inspection, non-tender, supple, full range of motion Respiratory Exam: normal breath sounds, lungs clear, No respiratory distress Cardiovascular Exam: regular rate/rhythm, normal heart sounds Gastrointestinal/Abdomen Exam: soft, No tenderness, No mass Extremity Exam: normal inspection, normal range of motion Back Exam: normal inspection, normal range of motion, No CVA tenderness, No vertebral tenderness Male Genitalia Exam: deferred Rectal Exam: deferred OBJECTIVE DATA Vital Signs: Vital Signs - 24 hr Temp Pulse Resp BP BP Pulse Ox 08/17/23 12:23 97 F 78 17 93/56 98 08/17/23 09:30 80 111/59 08/17/23 08:00 96.9 F 72 16 103/61 95 08/17/23 06:32 61 20 93 L 08/17/23 04:00 97.8 F 87 26 H 117/73 98 08/17/23 01:05 94 L 08/16/23 23:17 97.5 F 91 H 28 H 118/70 93 L 08/16/23 20:42 94 H 24 94 L 08/16/23 19:58 97.7 F 118 H 40 H 177/105 93 L 08/16/23 18:28 88 L 08/16/23 18:06 97.1 F 92 H 24 142/80 93 L 08/16/23 17:30 91 L 08/16/23 17:30 124/73 08/16/23 17:00 86 21 129/75 94 L 08/16/23 16:30 88 21 138/82 90 L 08/16/23 16:00 81 20 133/80 92 L 08/16/23 15:21 85 22 91 L 08/16/23 15:20 98.8 F 88 22 140/85 90 L Pain Assessment - Last Documented Pain Intensity 0 Intake and Output: Intake & Output 08/15/23 08/16/23 08/17/23 08/18/23 11:59 11:59 11:59 11:59 Intake Total 1200 Output Total 600 Balance 600 Weight 83.3 kg Lab Results: Lab Results-Last 24 Hours 08/16/23 08/16/23 08/16/23 Range/Units 15:39 15:39 16:10 WBC 7.9 (4.0-10.5) x10^3/uL RBC 4.86 (4.1-5.6) x10^6/uL Hgb 12.7 (12.5-18.0) g/dL Hct 41.8 L (42-50) % MCV 86.0 (78-100) fL MCH 26.1 (26-32) pg MCHC 30.4 L (32-36) g/dL RDW 14.8 H (11.5-14.0) % Plt Count 230 (150-450) x10^3/uL MPV 9.9 (7.5-11.0) fL Gran % 84.0 H (36.0-66.0) % Immature Gran % (Auto) 0.4 (0.00-0.4) % Nucleat RBC Rel Count 0.0 (0.00-0.1) % Eos # (Auto) 0.07 (0-0.5) x10^3/uL Immature Gran # (Auto) 0.03 (0.00-0.03) x10^3u/L Absolute Lymphs (auto) 0.78 L (1.0-4.6) x10^3/uL Absolute Monos (auto) 0.33 (0.0-1.3) x10^3/uL Absolute Nucleated RBC 0.00 (0.00-0.01) x10^3u/L Lymphocytes % 9.9 L (24.0-44.0) % Monocytes % 4.2 (0.0-12.0) % Eosinophils % 0.9 (0.00-5.0) % Basophils % 0.6 (0.0-0.4) % Absolute Granulocytes 6.62 (1.4-6.9) x10^3/uL Basophils # 0.05 (0-0.4) x10^3/uL Puncture Site LEFT BRACHIAL pCO2 50 H (35-45) mmHg pO2 66 L (75-100) mmHg Base Excess 5.1 H (-2.0-2.0) O2 Saturation 91.0 L (94-100) g/dF ABG pH 7.40 (7.35-7.45) ABG HCO3 31.0 H* (22-28) ABG O2 Sat (Measured) 93.0 L (95-100) % Gokul Test NOT APPLICABLE A-a Gradient 128 a/A Ratio 0.34 Hemoglobin 12.7 Carboxyhemoglobin 1.6 (0.0-6.9) % THgb Methemoglobin 0.6 L (1.4-1.5) % Potassium 4.3 4.3 (3.5-5.1) Temperature 37.0 C POC O2 Flow Rate 36 % Sodium 138 (137-145) mmol/L Chloride 99 (98-107) mmol/L Carbon Dioxide 32 H (22-30) mmol/L Anion Gap 10.5 (5-15) MEQ/L BUN 12 (9-20) mg/dL Creatinine 0.69 (0.66-1.25) mg/dL Estimated GFR 95.9 ML/MIN Glucose 116 H (74-106) mg/dL Lactic Acid 0.5 (0.4-2.0) Calcium 9.9 (8.4-10.2) mg/dL Magnesium 1.9 (1.6-2.3) mg/dL Total Bilirubin 1.20 (0.2-1.3) mg/dL AST 30 (17-59) U/L ALT 20 (0-50) U/L Alkaline Phosphatase 58 (38-126) U/L Troponin I (0.000-0.034) ng/mL NT-Pro-B Natriuret Pep 1150 (<300) pg/mL Serum Total Protein 7.1 (6.3-8.2) g/dL Albumin 4.4 (3.5-5.0) g/dL Influenza Type A Ag (NEGATIVE) Influenza Type B Ag (NEGATIVE) RSV (PCR) (NEGATIVE) SARS-CoV-2 (PCR) (NEGATIVE) 08/16/23 08/16/23 08/16/23 Range/Units 16:10 19:45 23:35 WBC (4.0-10.5) x10^3/uL RBC (4.1-5.6) x10^6/uL Hgb (12.5-18.0) g/dL Hct (42-50) % MCV (78-100) fL MCH (26-32) pg MCHC (32-36) g/dL RDW (11.5-14.0) % Plt Count (150-450) x10^3/uL MPV (7.5-11.0) fL Gran % (36.0-66.0) % Immature Gran % (Auto) (0.00-0.4) % Nucleat RBC Rel Count (0.00-0.1) % Eos # (Auto) (0-0.5) x10^3/uL Immature Gran # (Auto) (0.00-0.03) x10^3u/L Absolute Lymphs (auto) (1.0-4.6) x10^3/uL Absolute Monos (auto) (0.0-1.3) x10^3/uL Absolute Nucleated RBC (0.00-0.01) x10^3u/L Lymphocytes % (24.0-44.0) % Monocytes % (0.0-12.0) % Eosinophils % (0.00-5.0) % Basophils % (0.0-0.4) % Absolute Granulocytes (1.4-6.9) x10^3/uL Basophils # (0-0.4) x10^3/uL Puncture Site pCO2 (35-45) mmHg pO2 (75-100) mmHg Base Excess (-2.0-2.0) O2 Saturation (94-100) g/dF ABG pH (7.35-7.45) ABG HCO3 (22-28) ABG O2 Sat (Measured) (95-100) % Gokul Test A-a Gradient a/A Ratio Hemoglobin Carboxyhemoglobin (0.0-6.9) % THgb Methemoglobin (1.4-1.5) % Potassium (3.5-5.1) Temperature C POC O2 Flow Rate % Sodium (137-145) mmol/L Chloride (98-107) mmol/L Carbon Dioxide (22-30) mmol/L Anion Gap (5-15) MEQ/L BUN (9-20) mg/dL Creatinine (0.66-1.25) mg/dL Estimated GFR ML/MIN Glucose (74-106) mg/dL Lactic Acid (0.4-2.0) Calcium (8.4-10.2) mg/dL Magnesium (1.6-2.3) mg/dL Total Bilirubin (0.2-1.3) mg/dL AST (17-59) U/L ALT (0-50) U/L Alkaline Phosphatase (38-126) U/L Troponin I < 0.012 0.014 < 0.012 (0.000-0.034) ng/mL NT-Pro-B Natriuret Pep (<300) pg/mL Serum Total Protein (6.3-8.2) g/dL Albumin (3.5-5.0) g/dL Influenza Type A Ag (NEGATIVE) Influenza Type B Ag (NEGATIVE) RSV (PCR) (NEGATIVE) SARS-CoV-2 (PCR) (NEGATIVE) 08/16/23 08/17/23 08/17/23 Range/Units Unknown 04:25 04:25 WBC 5.7 (4.0-10.5) x10^3/uL RBC 4.86 (4.1-5.6) x10^6/uL Hgb 12.5 (12.5-18.0) g/dL Hct 41.1 L (42-50) % MCV 84.6 (78-100) fL MCH 25.7 L (26-32) pg MCHC 30.4 L (32-36) g/dL RDW 14.6 H (11.5-14.0) % Plt Count 194 (150-450) x10^3/uL MPV 9.9 (7.5-11.0) fL Gran % (36.0-66.0) % Immature Gran % (Auto) (0.00-0.4) % Nucleat RBC Rel Count (0.00-0.1) % Eos # (Auto) (0-0.5) x10^3/uL Immature Gran # (Auto) (0.00-0.03) x10^3u/L Absolute Lymphs (auto) (1.0-4.6) x10^3/uL Absolute Monos (auto) (0.0-1.3) x10^3/uL Absolute Nucleated RBC (0.00-0.01) x10^3u/L Lymphocytes % (24.0-44.0) % Monocytes % (0.0-12.0) % Eosinophils % (0.00-5.0) % Basophils % (0.0-0.4) % Absolute Granulocytes (1.4-6.9) x10^3/uL Basophils # (0-0.4) x10^3/uL Puncture Site pCO2 (35-45) mmHg pO2 (75-100) mmHg Base Excess (-2.0-2.0) O2 Saturation (94-100) g/dF ABG pH (7.35-7.45) ABG HCO3 (22-28) ABG O2 Sat (Measured) (95-100) % Gokul Test A-a Gradient a/A Ratio Hemoglobin Carboxyhemoglobin (0.0-6.9) % THgb Methemoglobin (1.4-1.5) % Potassium 4.4 (3.5-5.1) Temperature C POC O2 Flow Rate % Sodium 134 L (137-145) mmol/L Chloride 99 (98-107) mmol/L Carbon Dioxide 32 H (22-30) mmol/L Anion Gap 7.2 (5-15) MEQ/L BUN 11 (9-20) mg/dL Creatinine 0.50 L (0.66-1.25) mg/dL Estimated GFR 105.7 ML/MIN Glucose 173 H (74-106) mg/dL Lactic Acid (0.4-2.0) Calcium 9.2 (8.4-10.2) mg/dL Magnesium (1.6-2.3) mg/dL Total Bilirubin 0.70 (0.2-1.3) mg/dL AST 21 (17-59) U/L ALT 17 (0-50) U/L Alkaline Phosphatase 50 (38-126) U/L Troponin I (0.000-0.034) ng/mL NT-Pro-B Natriuret Pep (<300) pg/mL Serum Total Protein 6.1 L (6.3-8.2) g/dL Albumin 3.6 (3.5-5.0) g/dL Influenza Type A Ag NEGATIVE (NEGATIVE) Influenza Type B Ag NEGATIVE (NEGATIVE) RSV (PCR) NEGATIVE (NEGATIVE) SARS-CoV-2 (PCR) NEGATIVE (NEGATIVE) Radiology Exams: Radiology Procedures Category Date Time Status CHEST 1 VIEW (PORTABLE) Stat Exams 08/16/23 15:39 Completed Assessment/Plan (1) COPD exacerbation Current Visit: Yes Status: Chronic Code(s): J44.1 - CHRONIC OBSTRUCTIVE PULMONARY DISEASE W (ACUTE) EXACERBATION (2) Anxiety Current Visit: Yes Status: Acute Code(s): F41.9 - ANXIETY DISORDER, UNSPECIFIED (3) Productive cough Current Visit: No Status: Acute Code(s): R05.8 - OTHER SPECIFIED COUGH (4) HTN (hypertension) Current Visit: Yes Status: Chronic Assessment & Plan: (1) COPD exacerbation Current Visit: Yes Status: Chronic Assessment & Plan: - Continue AVAPS at night- RT aware - mucinex, antibiotics, steroids, duonebs - 7 L oxymizer 92%- Baseline home O2 4-5LNC - Chest XR negative - TELE 08/17 - sxs improved - at baseline home O2 4-5 L - refused AVAPS machine at night. Code(s): J44.1 - CHRONIC OBSTRUCTIVE PULMONARY DISEASE W (ACUTE) EXACERBATION (2) Anxiety Current Visit: Yes Status: Acute Assessment & Plan: - Continue home med Code(s): F41.9 - ANXIETY DISORDER, UNSPECIFIED (3) Productive cough Current Visit: No Status: Acute Assessment & Plan: - Mucinex Code(s): R05.8 - OTHER SPECIFIED COUGH (4) HTN (hypertension) Current Visit: Yes Status: Chronic Assessment & Plan: - continue home meds - BP stable VTE: Lovenox PPI: Prilosec Next of Kin: sister- Daija Zaragoza [phone] D/C plan: 1-2 days Code status: Full Code(s): I10 - ESSENTIAL (PRIMARY) HYPERTENSION
[2023-08-17] MEDS ORDERED: Zithromax 500 MG/ 250 ML NaCl Premix 500 MG/250 ML IVPB IV SCH (22:00)
[2023-08-17] MEDS ORDERED: Xalatan OP SCH (22:00)
[2023-08-17] MEDS ORDERED: Mirapex 0.5 MG Tablet PO SCH (22:00)
[2023-08-17] MEDS ORDERED: ECOTRIN 81 MG PO SCH (22:00)
[2023-08-17] MEDS ORDERED: ZOCOR 20MG PO SCH (22:00)
[2023-08-18] MEDS: DUONEB 0.5-3 MG/3 ml Neb IH SCH ×2 (01:15→06:37)
[2023-08-18 04:26] VITALS: TEMP 97.9
[2023-08-18 05:58] LABS: Hematocrit 38.2 % (42-50); Hemoglobin 11.5 g/dL (12.5-18.0); Mean Cell Volume 86.2 fL (78-100); Mean Corpuscular Hgb Concent. 30.1 g/dL (32-36); Mean Platelet Volume 10.3 fL (7.5-11.0); Platelet Count 221 x10^3/uL (150-450); Red Blood Count 4.43 x10^6/uL (4.1-5.6); Red Cell Distribution Width 14.9 % (11.5-14.0); White Blood Count 8.5 x10^3/uL (4.0-10.5)
[2023-08-18 06:06] LABS: ALBUMIN 3.5 g/dL (3.5-5.0); ANION GAP 3.9 MEQ/L (5-15); BILIRUBIN,TOTAL 0.6 mg/dL (0.2-1.3); Calcium 8.9 mg/dL (8.4-10.2); Creatinine 1 0.64 mg/dL (0.66-1.25); EST GLOMERULAR FILTRATION RATE 98.1 ML/MIN; Potassium 4.6 mmol/L (3.5-5.1); Total Protein 5.8 g/dL (6.3-8.2)
[2023-08-18] MEDS: Advair Hfa 115/21 Common canister IH SCH (06:37)
[2023-08-18 06:59] VITALS: RESP 18
[2023-08-18] MEDS: Protonix 40MG Tablet PO SCH (07:28)
--- NOTE | 2023-08-18 09:37 | PCM.DS ---
Discharge Summary Date of Admission: 08/16/23 17:50 Date of Discharge: 08/18/23 Admitting Physician: GHULAM SIBLEY MD Primary Care Provider: FARHAT SEGURA DO Allergies Allergies nicotine [From [facility]] Allergy (Severe, Verified 08/16/23 15:17) [facility] Summary - Hospital Course Hospital Course: 08/16/23 is a 77 year old male with PMHX of chronic respiratory failure secondary to COPD on 4 L oxygen, coronary artery disease, congestive heart failure, hypertension. He presented in the ER with chief complaint of increasing shortness of breath for the last few days which got really worse since last night and today his oxygen saturation was 85% despite using 4 L oxygen. Patient reports increased dyspnea on exertion and now having dyspnea even resting with oxygen on. Reports coughing up yellow-green sputum moderate in amount. Using neb treatments as recommended with no significant relief. No fever or chills reported. Denies off-and-on chest tightness and pressure but no pain. Chest XR negative for acute process. Will continue to treat for COPD exacerbation. Pt received duonebs, steriods, antibiotics in ER. Will continue same plan of care. He reports he does wear an AVAPS machine at night. Will continue. Will change O2 to oxymizer since on 7L @ 93%. 08/17/23 Pt resting in bed. SOB has improved. He explained he still feels a bit SOB and would like to stay 1 more day. He refused to wear our AVAPS machine last night and only likes his home machine. Family was unable to bring in his home machine due to weather. He is at baseline oxygen 4-5 L. Lung sounds clear today. He denies CP, Abd. pain, N/V/D. 08/18/23 Pt resting in bed. Dyspnea has improved. He would like to go home today.He is on baseline O2 4-5 LNC. Will continue antibiotics and steroids OP. He will need to f/u with PCP next week. BCx2 pending will continue to monitor for results. He denies any further concerns at this time. - Vitals & Intake/Output Vital Signs: Vital Signs Temperature 97.9 F 08/18/23 06:58 Pulse Rate 63 08/18/23 06:58 Respiratory Rate 18 08/18/23 06:58 Blood Pressure 101/59 08/18/23 06:58 O2 Sat by Pulse Oximetry 93 L 08/18/23 07:06 Intake & Output: Intake & Output 08/15/23 08/16/23 08/17/23 08/18/23 11:59 11:59 11:59 11:59 Intake Total 1200 1540 Output Total 600 2700 Balance 600 -1160 Weight 83.3 kg - Lab Result Diagrams: 08/18/23 05:20 08/18/23 05:20 Lab Results-Last 24 Hrs: Lab Results-Last 24 Hours 08/18/23 08/18/23 Range/Units 05:20 05:20 WBC 8.5 (4.0-10.5) x10^3/uL RBC 4.43 (4.1-5.6) x10^6/uL Hgb 11.5 L (12.5-18.0) g/dL Hct 38.2 L (42-50) % MCV 86.2 (78-100) fL MCH 26.0 (26-32) pg MCHC 30.1 L (32-36) g/dL RDW 14.9 H (11.5-14.0) % Plt Count 221 (150-450) x10^3/uL MPV 10.3 (7.5-11.0) fL Sodium 133 L (137-145) mmol/L Potassium 4.6 (3.5-5.1) mmol/L Chloride 99 (98-107) mmol/L Carbon Dioxide 36 H (22-30) mmol/L Anion Gap 3.9 L (5-15) MEQ/L BUN 12 (9-20) mg/dL Creatinine 0.64 L (0.66-1.25) mg/dL Estimated GFR 98.1 ML/MIN Glucose 132 H (74-106) mg/dL Calcium 8.9 (8.4-10.2) mg/dL Total Bilirubin 0.60 (0.2-1.3) mg/dL AST 18 (17-59) U/L ALT 14 (0-50) U/L Alkaline Phosphatase 44 (38-126) U/L Serum Total Protein 5.8 L (6.3-8.2) g/dL Albumin 3.5 (3.5-5.0) g/dL Micro Results-Entire Visit: Microbiology 08/16/23 16:10 Blood Culture - Preliminary Blood 08/16/23 16:22 Blood Culture - Preliminary Blood - Radiology Exams Ordered Rad Exams-Entire Visit: Radiology Procedures Category Date Time Status CHEST 1 VIEW (PORTABLE) Stat Exams 08/16/23 15:39 Completed - Procedures and Test Procedures and Tests throughout Hospitalization: Therapy Orders & Screens 08/16/23 15:21 Respiratory Therapy Assessment DAILY Comment: 08/16/23 17:57 Oxygen Nasal Cannula 5 lpm Comment: Respiratory Therapy Consult ONCE Comment: Reason For Exam: 08/16/23 19:08 RT Miscellaneous Order ROUTINE Comment: Continue while IP. Physician Instructions: Pt reports he wears AVAPS machine at noc. Reason For Exam: Diagnosis: COPD exacerbation 08/16/23 19:26 Respiratory Therapy Assessment DAILY Comment: Diagnosis: COPD exacerbation 08/16/23 19:34 Respiratory MDI BID Comment: Diagnosis: COPD exacerbation Discharge Exam General Appearance: no apparent distress, alert Neurologic Exam: alert, oriented x 3, cooperative, normal mood/affect, nml cerebellar function, sensation nml, No motor deficits Eye Exam: PERRL, EOMI, eyes nml inspection Ears, Nose, Throat Exam: normal ENT inspection, pharynx normal, moist mucous membranes Neck Exam: normal inspection, non-tender, supple, full range of motion Respiratory Exam: normal breath sounds, lungs clear, No respiratory distress Cardiovascular Exam: regular rate/rhythm, normal heart sounds Gastrointestinal/Abdomen Exam: soft, No tenderness, No mass Male Genitalia Exam: deferred Rectal Exam: deferred Back Exam: normal inspection, normal range of motion, No CVA tenderness, No vertebral tenderness Extremity Exam: normal inspection, normal range of motion Skin Exam: normal color, warm, dry Final Diagnosis/Problem List - Final Discharge Diagnosis/Problem (1) COPD exacerbation Current Visit: Yes Status: Chronic Code(s): J44.1 - CHRONIC OBSTRUCTIVE PULMONARY DISEASE W (ACUTE) EXACERBATION (2) Anxiety Current Visit: Yes Status: Acute Code(s): F41.9 - ANXIETY DISORDER, UNSPECIFIED (3) Productive cough Current Visit: No Status: Acute Code(s): R05.8 - OTHER SPECIFIED COUGH (4) HTN (hypertension) Current Visit: Yes Status: Chronic Assessment & Plan: (1) COPD exacerbation Current Visit: Yes Status: Chronic Assessment & Plan: - Continue AVAPS at night- RT aware - mucinex, antibiotics, steroids, duonebs - 7 L oxymizer 92%- Baseline home O2 4-5LNC - Chest XR negative - TELE 08/17 - sxs improved - at baseline home O2 4-5 L - refused AVAPS machine at night. 08/18 - at baseline O2 - Continue steroids and antibiotics OP -will continue to follow BC x2 Code(s): J44.1 - CHRONIC OBSTRUCTIVE PULMONARY DISEASE W (ACUTE) EXACERBATION (2) Anxiety Current Visit: Yes Status: Acute Assessment & Plan: - Continue home med Code(s): F41.9 - ANXIETY DISORDER, UNSPECIFIED (3) Productive cough Current Visit: No Status: Acute Assessment & Plan: - Mucinex Code(s): R05.8 - OTHER SPECIFIED COUGH (4) HTN (hypertension) Current Visit: Yes Status: Chronic Assessment & Plan: - continue home meds - BP stable Code(s): I10 - ESSENTIAL (PRIMARY) HYPERTENSION - Discharge Discharge Date: 08/18/23 Disposition: Home, Self-Care Condition: Stable Prescriptions: New Prednisone 20 mg [Deltasone 20 mg] 20 mg PO BID 5 Days #10 tablet Guaifenesin 600 mg ER [Mucinex 600MG ER Tabs] 600 mg PO BID 10 Days #20 tablet Doxycycline Hyclate 100 mg [Vibramycin 100 MG] 100 mg PO BID 5 Days #10 tab Continue Omeprazole 20 MG [Prilosec 20 mg] 20 mg PO BIDAC Albuterol 2.5 mg/3 ml Neb [Proventil 2.5 mg/3 ml Neb] 1 neb IH Q6H PRN PRN Reason: sob Aspirin 81 mg PO HS Nitroglycerin 0.4 mg Tablet [Nitrostat 0.4 MG Tablet] 0.4 mg SL Q5MIN PRN MR X 3 PRN PRN Reason: Chest Pain ALPRAZolam 1 MG [Xanax 1 mg] 1 mg PO BID Isosorbide Mononitrate 60 mg [Imdur 60MG] 60 mg PO DAILY Metoprolol Tartrate 25 mg [Lopressor 25MG Tab] 25 mg PO BID Rosuvastatin Calcium 20 mg PO HS Spironolactone 25 mg [Aldactone 25 MG] 12.5 mg PO DAILY Budesonide/Glycopyr/Formoterol [Breztri Aerosphere Inhaler] 2 puffs IH BID Albuterol Sulfate [Proair Digihaler] 2 puffs IH Q6H PRN PRN Reason: sob Pramipexole Di-HCl [Mirapex] 0.25 mg PO HS Sacubitril/Valsartan [Entresto 97 mg-103 mg Tablet] 1 tab PO BID Furosemide 20 mg [Lasix 20 mg] 20 mg PO DAILY Amlodipine Besylate 2.5 mg PO DAILY Propylene Glycol/Peg 400 [Lubricating Eye Drop] 15 ml OP QID Latanoprost [Xalatan] 1 ml OP HS Carboxymethylcellulose Sodium [Refresh Liquigel] 1 ml OP HS Theophylline Anhydrous [Theophylline ER 24Hr] 400 mg PO BID #60 Prednisone 5 mg [Deltasone 5 mg] 5 mg PO DAILY #33 tablet Instructions: Exacerbation of COPD (DC) Additional Instructions: Hold prednisone 5mg daily until done with higher new prednisone prescription. Hold lasix today and tomorrow. Hold amlodipine today. Follow up with: FARHAT SEGURA DO [Primary Care Provider] - 08/28/23 11:00 am
[2023-08-18] MEDS: Lopressor 25MG Tab PO SCH (09:40)
[2023-08-18] MEDS: DELTASONE 20 MG PO SCH (09:40)
[2023-08-18] MEDS: XANAX 1 MG PO SCH (09:40)
[2023-08-18] MEDS: Mucinex 600MG ER Tabs PO SCH (09:40)
[2023-08-18] MEDS: Aldactone 25 MG PO SCH (09:40)
[2023-08-18] MEDS: Imdur 60MG PO SCH (09:41)
[2023-08-18] MEDS: ROCEPHIN 1 Gm-D5w 50 ml Bag** 1 G/50 ML IVPB IV SCH (09:41)
[2023-08-18] MEDS: Artificial Tears 15 ML OP SCH (09:41)
[2023-08-18] MEDS: THEOPHYLLINE ER 24HR PO SCH (09:41)
[2023-08-18] MEDS: ENTRESTO 49 MG-51 MG TABLET PO SCH (09:41)
[2023-08-18] MEDS: ENOXAPARIN SODIUM SQ SCH (09:49)
[2023-08-18] MEDS: LASIX 20 MG PO SCH (09:53)
[2023-08-18] MEDS: NORVASC 5 MG PO SCH (09:53)
[2023-08-18 11:45] VITALS: BP 96/57; PULSE 81; O2SAT 98
== END 2023-08-18 12:05 | disposition home health service (06) ==
LOC: ED 15:10 → MED SURG 17:50
PROVIDERS: ADMIT Internal Medicine; ATTEND Internal Medicine
DX: J44.1 Chronic obstructive pulmonary disease with (acute) exacerbation (principal); J96.10 Chronic respiratory failure, unspecified whether with hypoxia or hypercapnia; F41.9 Anxiety disorder, unspecified; R05.8 Other specified cough; I11.0 Hypertensive heart disease with heart failure; I50.9 Heart failure, unspecified; I25.10 Atherosclerotic heart disease of native coronary artery without angina pectoris; E11.9 Type 2 diabetes mellitus without complications; Z79.899 Other long term (current) drug therapy; Z20.828 Contact with and (suspected) exposure to other viral communicable diseases; Z99.81 Dependence on supplemental oxygen
CPT/HCPCS: 0241U; 36000; 36415; 36600; 71045; 80053; 82375; 82803; 83605; 83735; 83880; 84484; 85025; 85027; 87040; 93005; 93041; 93268; 94640; 94762; 99285; G0378; Q3014; J0456; J0696; J1650; A9270-GY

== ENCOUNTER 2023-10-06 10:35 | Observation (INO) | payer MEDICARE ==
[2023-10-06 10:56] LABS: BASOPHIL % 0.6 % (0.0-0.4); Basophil (Absolute #) 0.05 x10^3/uL (0-0.4); Eosinophil % 1.5 % (0.00-5.0); Eosinophil (Absolute #) 0.12 x10^3/uL (0-0.5); Hematocrit 43.3 % (42-50); IMMATURE GRAN # 0.05 x10^3u/L (0.00-0.03); IMMATURE GRAN % 0.6 % (0.00-0.4); Lymphocyte (Absolute #) 1.08 x10^3/uL (1.0-4.6); Lymphocytes % 13.6 % (24.0-44.0); Mean Cell Volume 84.2 fL (78-100); Mean Corpuscular Hemoglobin 25.3 pg (26-32); Mean Platelet Volume 9.2 fL (7.5-11.0); Monocyte (Absolute #) 0.66 x10^3/uL (0.0-1.3); Monocytes % 8.3 % (0.0-12.0); Neutrophil % 75.4 % (36.0-66.0); Platelet Count 246 x10^3/uL (150-450); Red Blood Count 5.14 x10^6/uL (4.1-5.6); Red Cell Distribution Width 15.6 % (11.5-14.0)
[2023-10-06] MEDS ORDERED: Sodium Chloride 3 ML UD NEBULES IH ONE (11:01)
[2023-10-06] MEDS ORDERED: Xopenex 1.25 MG/0.5 ML UD NEBULE IH ONE (11:01)
[2023-10-06] MEDS: Xopenex 1.25 MG/0.5 ML UD NEBULE IH ONE (11:04)
[2023-10-06 11:09] LABS: ALBUMIN 4.2 g/dL (3.5-5.0); ANION GAP 9.5 MEQ/L (5-15); BILIRUBIN,TOTAL 1.5 mg/dL (0.2-1.3); Calcium 9.4 mg/dL (8.4-10.2); Creatinine 1 0.73 mg/dL (0.66-1.25); EST GLOMERULAR FILTRATION RATE 93.7 ML/MIN; Potassium 4.1 mmol/L (3.5-5.1); Total Protein 6.6 g/dL (6.3-8.2)
--- NOTE | 2023-10-06 11:45 | ERPHSYRPT ---
- History of Present Illness Time Seen by Provider: 10/06/23 11:42 Historian: patient, EMS Exam Limitations: no limitations Patient Subjective Stated Complaint: Pt states "I take laxatives to have a bowel movment and this morning my belly started to swell up and hurt." Triage Nursing Assessment: PT presented alert and oriented X 3, skin pwt able to speak in clear full sentences. Pt tachypneic and tachycardic Physician History: Pt states "I take laxatives to have a bowel movment and this morning my belly started to swell up and hurt." Patient is 78-year-old male with significant past medical history of end-stage COPD with pulmonary fibrosis pulmonary hypertension coronary artery disease has problem with constipation off and on for few months. He did not have a bowel movement for 3 to 4 days so he took a laxative and now he has developed some loose bowel movements followed by gaseous distention of the abdomen. So he came to the emergency room. Timing/Duration: today Quality: fullness Abdominal Pain Onset Location: generalized abdomen Severity of Pain-Max: none Severity of Pain-Current: none Modifying Factors: Improves With: nothing Associated Symptoms: denies symptoms Allergies/Adverse Reactions: nicotine [From [facility]] Allergy (Severe, Verified 08/16/23 15:17) Rash Home Medications: Albuterol 2.5 mg/3 ml Neb [Proventil 2.5 mg/3 ml Neb] 1 neb IH Q6H PRN [History] Aspirin 81 mg PO HS 02/04/14 [History] Omeprazole 20 MG [Prilosec 20 mg] 20 mg PO BIDAC 02/04/14 [History] Nitroglycerin 0.4 mg Tablet [Nitrostat 0.4 MG Tablet] 0.4 mg SL Q5MIN PRN MR X 3 PRN 08/01/16 [History] ALPRAZolam 1 MG [Xanax 1 mg] 1 mg PO BID 10/14/18 [History] Isosorbide Mononitrate 60 mg [Imdur 60MG] 60 mg PO DAILY 06/01/20 [History] Metoprolol Tartrate 25 mg [Lopressor 25MG Tab] 25 mg PO BID 06/01/20 [History] Rosuvastatin Calcium 20 mg PO HS 06/01/20 [History] Spironolactone 25 mg [Aldactone 25 MG] 12.5 mg PO DAILY 01/25/21 [History] Albuterol Sulfate [Proair Digihaler] 2 puffs IH Q6H PRN 03/24/21 [History] Budesonide/Glycopyr/Formoterol [Breztri Aerosphere Inhaler] 2 puffs IH BID 03/24/21 [History] Amlodipine Besylate 2.5 mg PO DAILY 06/12/21 [History] Furosemide 20 mg [Lasix 20 mg] 20 mg PO DAILY 06/12/21 [History] Pramipexole Di-HCl [Mirapex] 0.25 mg PO HS 06/12/21 [History] Carboxymethylcellulose Sodium [Refresh Liquigel] 1 ml OP HS 09/25/21 [History] Latanoprost [Xalatan] 1 ml OP HS 09/25/21 [History] Propylene Glycol/Peg 400 [Lubricating Eye Drop] 15 ml OP QID 09/25/21 [History] Losartan Potassium 50 mg [Cozaar 50 MG] 50 mg PO DAILY 10/06/23 [History] Roflumilast [Daliresp] 250 mcg PO DAILY 10/06/23 [History] Hx Tetanus, Diphtheria Vaccination/Date Given: No Hx Influenza Vaccination/Date Given: Yes Hx Pneumococcal Vaccination/Date Given: Yes Immunizations Up to Date: No Travel Risk - International Travel Have you traveled outside of the country in past 3 weeks: No - Coronavirus Screening Are you exhibiting any of the following symptoms?: No Close contact with a COVID-19 positive Pt in past 14-21 Days: No - Vaccine Status Have you recieved a Covid-19 vaccination: No - Review of Systems Constitutional: No Fever, No Chills Eyes: No Symptoms Ears, Nose, & Throat: No Symptoms Respiratory: No Cough, No Dyspnea Cardiac: No Chest Pain, No Edema, No Syncope Abdominal/Gastrointestinal: Other (abdominal distension), No Abdominal Pain, No Nausea, No Vomiting, No Diarrhea Genitourinary Symptoms: No Dysuria Musculoskeletal: No Back Pain, No Neck Pain Skin: No Rash Neurological: No Dizziness, No Focal Weakness, No Sensory Changes Psychological: No Symptoms Endocrine: No Symptoms All Other Systems: Reviewed and Negative - Past Medical History Pertinent Past Medical History: Yes Neurological History: No Pertinent History ENT History: No Pertinent History Cardiac History: Aneurysm, Congestive Heart Failure, Hypertension Respiratory History: COPD, Sleep Apnea, Other Endocrine Medical History: Diabetes Type II Musculoskeletal History: No Pertinent History GI Medical History: No Pertinent History, GERD History: No Pertinent History Psycho-Social History: Anxiety Male Reproductive Disorders: No Pertinent History Other Medical History: 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 PT wears 4L O2 AT ALL TIMES - Past Surgical History Past Surgical History: Yes Neuro Surgical History: No Pertinent History Cardiac: No Pertinent History Respiratory: Other Gastrointestinal: Hernia Repair Genitourinary: No Pertinent History Musculoskeletal: Orthopedic Surgery Male Surgical History: Vasectomy Other Surgical History: BACK SURGERY, and ear surgery and a left lung biopsy. 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, double hernia repair, - Social History Smoking Status: Former smoker How long have you smoked: 13 Exposure to second hand smoke: No Drug Use: none Patient Lives Alone: No Significant Family History: no pertinent family hx - Nursing Vital Signs Nursing Vital Signs: Initial Vital Signs Temperature 98.0 F 10/06/23 10:36 Pulse Rate 111 H 10/06/23 10:36 Respiratory Rate 24 10/06/23 10:36 Blood Pressure 120/70 10/06/23 10:36 O2 Sat by Pulse Oximetry 93 L 10/06/23 10:36 Pain Scale Pain Intensity 0 - Physical Exam General Appearance: no apparent distress, alert Eye Exam: PERRL/EOMI, eyes nml inspection Ears, Nose, Throat Exam: normal ENT inspection, pharynx normal, moist mucous membranes Neck Exam: normal inspection, non-tender, supple, full range of motion Respiratory Exam: respiratory distress, accessory muscle use, crackles/rales, rhonchi, wheezing Cardiovascular Exam: regular rate/rhythm, normal heart sounds Gastrointestinal/Abdomen Exam: soft, No tenderness, No mass Back Exam: normal inspection, normal range of motion, No CVA tenderness, No vertebral tenderness Extremity Exam: normal inspection, normal range of motion, pelvis stable Neurologic Exam: alert, oriented x 3, cooperative, normal mood/affect, nml cere bellar function, sensation nml, No motor deficits Skin Exam: normal color, warm, dry SpO2: 97 - Course Nursing assessment & vital signs reviewed: Yes - CT Exams Abdomen/Pelvis CT Interpretation: Tele-radiologist Report Ordered Tests: Active Orders 24 hr Category Date Time Status ABDOMEN AND PELVIS W/0 CONTRAS [CT] Stat Exams 10/06/23 10:40 Ordered AMYLASE Stat Lab 10/06/23 10:52 Completed CBC W DIFF Stat Lab 10/06/23 10:52 Completed CMP Stat Lab 10/06/23 10:52 Completed LIPASE Stat Lab 10/06/23 10:52 Completed Medication Summary Generic Name Dose Route Start Last Admin Trade Name Freq PRN Reason Stop Dose Admin Sodium Chloride 1,000 mls @ 100 mls/hr 10/06/23 10:45 Sodium Chloride 0.9% 1000 Ml IV 11/05/23 10:44 .Q10H FAHEEM Discontinued Medications Generic Name Dose Route Start Last Admin Trade Name Freq PRN Reason Stop Dose Admin Levalbuterol HCl 1.25 mg 10/06/23 10:39 10/06/23 11:04 Levalbuterol Hcl 1.25 Mg/0.5 Ml Neb IH 10/06/23 10:40 1.25 mg STAT ONE Administration Levalbuterol HCl Confirm 10/06/23 11:01 Levalbuterol Hcl 1.25 Mg/0.5 Ml Neb Administered 10/06/23 11:02 Dose 1.25 mg IH .STK-MED ONE Sodium Chloride Confirm 10/06/23 11:01 Sodium Cl For Inhalation 3 Ml Ud Nebule Administered 10/06/23 11:02 Dose 3 ml IH .STK-MED ONE Lab/Rad Data: Laboratory Result Diagrams 10/06/23 10:52 10/06/23 10:52 Laboratory Results 10/06/23 10/06/23 Range/Units 10:52 10:52 WBC 8.0 (4.0-10.5) x10^3/uL RBC 5.14 (4.1-5.6) x10^6/uL Hgb 13.0 (12.5-18.0) g/dL Hct 43.3 (42-50) % MCV 84.2 (78-100) fL MCH 25.3 L (26-32) pg MCHC 30.0 L (32-36) g/dL RDW 15.6 H (11.5-14.0) % Plt Count 246 (150-450) x10^3/uL MPV 9.2 (7.5-11.0) fL Gran % 75.4 H (36.0-66.0) % Immature Gran % (Auto) 0.6 H (0.00-0.4) % Nucleat RBC Rel Count 0.0 (0.00-0.1) % Eos # (Auto) 0.12 (0-0.5) x10^3/uL Immature Gran # (Auto) 0.05 H (0.00-0.03) x10^3u/L Absolute Lymphs (auto) 1.08 (1.0-4.6) x10^3/uL Absolute Monos (auto) 0.66 (0.0-1.3) x10^3/uL Absolute Nucleated RBC 0.00 (0.00-0.01) x10^3u/L Lymphocytes % 13.6 L (24.0-44.0) % Monocytes % 8.3 (0.0-12.0) % Eosinophils % 1.5 (0.00-5.0) % Basophils % 0.6 (0.0-0.4) % Absolute Granulocytes 6.00 (1.4-6.9) x10^3/uL Basophils # 0.05 (0-0.4) x10^3/uL Sodium 139 (135-145) mmol/L Potassium 4.1 (3.5-5.1) mmol/L Chloride 100 (98-107) mmol/L Carbon Dioxide 34 H (22-30) mmol/L Anion Gap 9.5 (5-15) MEQ/L BUN 12 (9-20) mg/dL Creatinine 0.73 (0.66-1.25) mg/dL Estimated GFR 93.7 ML/MIN Glucose 91 (74-106) mg/dL Calcium 9.4 (8.4-10.2) mg/dL Total Bilirubin 1.50 H (0.2-1.3) mg/dL AST 24 (17-59) U/L ALT 19 (0-50) U/L Alkaline Phosphatase 48 (38-126) U/L Serum Total Protein 6.6 (6.3-8.2) g/dL Albumin 4.2 (3.5-5.0) g/dL Amylase 123 H (30-110) U/L Lipase 447 H (23-300) U/L IMPRESSION: 1. Narrowing identified in one of the small bowel loops in the left upper quadrant of abdomen showing proximal mottling lucency and proximal dilatation of small bowel loop measuring 5.5 cm in diameter. 2. Findings are likely due to early acute small bowel obstruction, would recommend clinical correlation and further work up. 3. No evidence of bowel perforation or pneumoperitoneum in the current examination. 4. Air-distended stomach seen. Mild diffuse thickening of the gastric wall seen, would recommend endoscopy if clinically indicated. - Progress Progress: improved Will see patient in: hospital (observation) Counseled pt/family regarding: lab results, diagnosis, need for follow-up, rad results Medical Desision Making - Independent Historian Additional History obtained from: Spouse - Discussion of managment Care discussed with:: hospitalist Reviewed:: Test results, Need for additional workup Agreed on:: Treatment plan, decision to admit, place in obs - Diagnostic Testing Diagnostic test were ordered, analyzed, and reviewed by me: Yes Radiological Interpretation: Reviewed by me - Risk of complications The pt has a mod risk of morbidity or mortality based on: Need for minor surgical intervention in patient with know risk factors - Departure Departure Disposition: Home Clinical Impression: Small bowel obstruction, Chronic hypoxemic respiratory failure Condition: Fair Critical Care Time: Yes Critical Care Time(excluding separately billable procedures): Critical 30-74 mins Referrals: FARHAT SEGURA DO [Primary Care Provider] - Follow up/PCP as directed
[2023-10-06] MEDS: Sodium Chloride 0.9% 1000 ML 1,000 ML IV SCH (12:36)
--- NOTE | 2023-10-06 14:10 | XRAY ---
CLINICAL HISTORY: NG TUBE PLACEMENT TECHNIQUE: X-ray chest- AP portable views. COMPARISON: Prior CT chest dated 06/27/2023 and CR dated 06/26/2023 was reviewed FINDINGS: A nasogastric tube noted with a distal tip Seen in the distal esophagus, needs another 10 to 15 cm pushing into the stomach. Cardiac size is within normal limits. Redemonstration of emphysematous lungs consistent with COPD changes. Haziness seen in the left lower zone suggesting postinflammatory changes. Small nodular opacities seen in the right lower lobe Crowding of vascular markings mainly in the right lower zone. No major collapse or consolidation. Curvilinear aortic arch calcification seen. Both costophrenic angles appear clear. Soft tissues and visualized bony rib cage appear normal IMPRESSION: 1. The nasogastric tube noted with distal tip Seen in the distal esophagus, needs another 10 to 15 cm pushing into the stomach. 2. Redemonstration of emphysematous lungs consistent with COPD changes. 3. Haziness seen in the left lower zone suggesting postinflammatory changes. 4. Small nodular opacities seen in the right lower lobe. 5. Clinical and lab correlation is advised. Electronically Signed by: Macy Molina MD. (10/06/2023 14:07:10 EST)
--- NOTE | 2023-10-06 14:44 | PCM.HP ---
History of Present Illness - Chief Complaint Chief Complaint: small bowel obstruction Date: 10/06/23 History of Present Illness: Mr. Vance is a 78 year old male with a pmhx of chronic respiratory failure secondary to COPD on 4 L oxygen, coronary artery disease, congestive heart failure, hypertension who presented to ED 10/06/23 with complaints of crampy abdominal pain, bloating, and distention. Patient endorses a 3-4 week history of constipation for which he has been taking miralax and stool softeners at home. He report that he has had a partial bowel movement with a small amount of formed stool today but over the past several weeks it has been mostly loose with mucus. He denies associated nausea or vomiting. In ED, patient tachycardic, tachypneic, and hypotensive. Spo2 @ 98% on 5L. CT imaging showing narrowing identified in one of the small bowel loops in the left upper quadrant of abdomen showing proximal mottling lucency and proximal dilatation of small bowel loop measuring 5.5 cm in diameter. Consistent with early acute small bowel obstruction. Lab findings significant for Tbili at 1.50, amylase at 123, and lipase at 447. Patient admitted with small bowel obstruction. Plan for surgical consult. - Review of Systems Constitutional: No Symptoms Eyes: No Symptoms Ears, Nose, & Throat: No Symptoms Respiratory: Cough, Short Of Breath Cardiac: No Symptoms Abdominal/Gastrointestinal: Abdominal Pain, Constipation, Appetite Changes Genitourinary Symptoms: Dysuria, Urinary Retention Musculoskeletal: No Symptoms Skin: No Symptoms Neurological: No Symptoms Psychological: No Symptoms Endocrine: No Symptoms Hematologic/Lymphatic: No Symptoms Immunological/Allergic: No Symptoms Medications & Allergies Home Medications: Home Medication List Albuterol 2.5 mg/3 ml Neb [Proventil 2.5 mg/3 ml Neb] 1 neb IH Q6H PRN 02/04/14 [History Confirmed 10/06/23] Aspirin 81 mg PO HS 02/04/14 [History Confirmed 10/06/23] Omeprazole 20 MG [Prilosec 20 mg] 20 mg PO BIDAC 02/04/14 [History Confirmed 10/06/23] Nitroglycerin 0.4 mg Tablet [Nitrostat 0.4 MG Tablet] 0.4 mg SL Q5MIN PRN MR X 3 PRN 01/03/17 [History Confirmed 10/06/23] ALPRAZolam 1 MG [Xanax 1 mg] 1 mg PO BID 10/14/18 [History Confirmed 10/06/23] Isosorbide Mononitrate 60 mg [Imdur 60MG] 60 mg PO DAILY 06/01/20 [History Confirmed 10/06/23] Metoprolol Tartrate 25 mg [Lopressor 25MG Tab] 25 mg PO BID 06/01/20 [History Confirmed 10/06/23] Rosuvastatin Calcium 20 mg PO HS 06/01/20 [History Confirmed 10/06/23] Spironolactone 25 mg [Aldactone 25 MG] 12.5 mg PO DAILY 01/25/21 [History Confirmed 10/06/23] Albuterol Sulfate [Proair Digihaler] 2 puffs IH Q6H PRN 03/24/21 [History Confirmed 10/06/23] Budesonide/Glycopyr/Formoterol [Breztri Aerosphere Inhaler] 2 puffs IH BID 03/24/21 [History Confirmed 10/06/23] Amlodipine Besylate 2.5 mg PO DAILY 06/12/21 [History Confirmed 10/06/23] Furosemide 20 mg [Lasix 20 mg] 20 mg PO DAILY 06/12/21 [History Confirmed 10/06/23] Pramipexole Di-HCl [Mirapex] 0.25 mg PO HS 06/12/21 [History Confirmed 10/06/23] Carboxymethylcellulose Sodium [Refresh Liquigel] 1 ml OP HS 09/25/21 [History Confirmed 10/06/23] Latanoprost [Xalatan] 1 ml OP HS 09/25/21 [History Confirmed 10/06/23] Propylene Glycol/Peg 400 [Lubricating Eye Drop] 1 drop OP QID 09/25/21 [History Confirmed 10/06/23] Theophylline Anhydrous [Theophylline ER 24Hr] 400 mg PO BID #60 11/20/21 [Rx Confirmed 10/06/23] Losartan Potassium 50 mg [Cozaar 50 MG] 50 mg PO DAILY 10/06/23 [History Confirmed 10/06/23] Prednisone 10 mg [Deltasone 10 mg] 10 mg PO DAILY 10/06/23 [History Confirmed 10/06/23] Roflumilast [Daliresp] 250 mcg PO DAILY 10/06/23 [History Confirmed 10/06/23] Allergies/Adverse Reactions: Allergies Allergy/AdvReac Type Severity Reaction Status Date / Time nicotine [From Nicoderm CQ] Allergy Severe Rash Verified 08/16/23 15:17 - Past Medical History Past Medical History: Yes Neurological History: No Pertinent History ENT History: No Pertinent History Cardiac History: Aneurysm, Congestive Heart Failure, Hypertension Respiratory History: COPD, Sleep Apnea, Other Endocrine Medical History: Diabetes Type II Musculoskelatal History: No Pertinent History GI Medical History: No Pertinent History, GERD History: No Pertinent History Pyscho-Social History: Anxiety Male Reproductive Disorders: No Pertinent History Comment: 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 PT wears 4L O2 AT ALL TIMES - Past Surgical History Past Surgical History: Yes Neuro Surgical History: No Pertinent History Cardiac History: No Pertinent History Respiratory Surgery: Other GI Surgical History: Hernia Repair Genitourinary Surgical Hx: No Pertinent History Musculskeletal Surgical Hx: Orthopedic Surgery Male Surgical History: Vasectomy Other Surgical History: BACK SURGERY, and ear surgery and a left lung biopsy. 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, double hernia repair, Significant Family History: no pertinent family hx - Social History Smoking Status: Former smoker How long have you smoked: 13 Exposure to second hand smoke: No Alcohol: None Drug Use: none - Social Determinants of Health Will the patient participate in the screening: Yes Do you worry about a steady place to live?: No In the past 12 months,have you had to go without utilities?: No Have you or anyone in your house had to go without enough: No Transportation Issues: No Has anyone in your support network made you feel unsafe?: No Does the patient want assistance with any of the above?: No - Physical Exam Vital Signs: Vital Signs - 24 hr Temp Pulse Resp BP BP Pulse Ox 10/06/23 13:30 88 30 H 137/85 88 L 10/06/23 13:15 87 33 H 139/85 93 L 10/06/23 13:00 83 33 H 140/92 96 10/06/23 12:39 97 10/06/23 12:30 90 28 H 138/81 87 L 10/06/23 12:15 89 34 H 123/75 98 10/06/23 12:00 110 H 29 H 137/84 95 10/06/23 11:45 100 H 24 117/72 96 10/06/23 11:30 96 H 29 H 152/95 97 10/06/23 11:29 110 H 39 H 96 10/06/23 11:20 99 H 25 H 99 10/06/23 11:10 90 26 H 100 10/06/23 11:07 96 H 24 96 10/06/23 11:05 106 H 28 H 86 L 10/06/23 10:45 123/81 10/06/23 10:36 98.0 F 111 H 24 120/70 93 L General Appearance: no apparent distress Neurologic Exam: alert, oriented x 3, cooperative Eye Exam: PERRL/EOMI Ears, Nose, Throat Exam: normal ENT inspection Neck Exam: normal inspection Respiratory Exam: diminished breath sounds Cardiovascular Exam: regular rate/rhythm, normal heart sounds Gastrointestinal/Abdomen Exam: distention, other (BS x 4 quads) Rectal Exam: deferred Back Exam: normal inspection Extremity Exam: normal inspection Skin Exam: normal color Results - Labs Lab/Micro Results: Lab Results-Last 24 Hours 10/06/23 10/06/23 Range/Units 10:52 10:52 WBC 8.0 (4.0-10.5) x10^3/uL RBC 5.14 (4.1-5.6) x10^6/uL Hgb 13.0 (12.5-18.0) g/dL Hct 43.3 (42-50) % MCV 84.2 (78-100) fL MCH 25.3 L (26-32) pg MCHC 30.0 L (32-36) g/dL RDW 15.6 H (11.5-14.0) % Plt Count 246 (150-450) x10^3/uL MPV 9.2 (7.5-11.0) fL Gran % 75.4 H (36.0-66.0) % Immature Gran % (Auto) 0.6 H (0.00-0.4) % Nucleat RBC Rel Count 0.0 (0.00-0.1) % Eos # (Auto) 0.12 (0-0.5) x10^3/uL Immature Gran # (Auto) 0.05 H (0.00-0.03) x10^3u/L Absolute Lymphs (auto) 1.08 (1.0-4.6) x10^3/uL Absolute Monos (auto) 0.66 (0.0-1.3) x10^3/uL Absolute Nucleated RBC 0.00 (0.00-0.01) x10^3u/L Lymphocytes % 13.6 L (24.0-44.0) % Monocytes % 8.3 (0.0-12.0) % Eosinophils % 1.5 (0.00-5.0) % Basophils % 0.6 (0.0-0.4) % Absolute Granulocytes 6.00 (1.4-6.9) x10^3/uL Basophils # 0.05 (0-0.4) x10^3/uL Sodium 139 (135-145) mmol/L Potassium 4.1 (3.5-5.1) mmol/L Chloride 100 (98-107) mmol/L Carbon Dioxide 34 H (22-30) mmol/L Anion Gap 9.5 (5-15) MEQ/L BUN 12 (9-20) mg/dL Creatinine 0.73 (0.66-1.25) mg/dL Estimated GFR 93.7 ML/MIN Glucose 91 (74-106) mg/dL Calcium 9.4 (8.4-10.2) mg/dL Total Bilirubin 1.50 H (0.2-1.3) mg/dL AST 24 (17-59) U/L ALT 19 (0-50) U/L Alkaline Phosphatase 48 (38-126) U/L Serum Total Protein 6.6 (6.3-8.2) g/dL Albumin 4.2 (3.5-5.0) g/dL Amylase 123 H (30-110) U/L Lipase 447 H (23-300) U/L - Radiology Impressions Radiology Exams & Impressions: Radiology Procedures Category Date Time Status ABDOMEN AND PELVIS W/0 CONTRAS [CT] Stat Exams 10/06/23 10:40 Taken CHEST 1 VIEW (PORTABLE) Stat Exams 10/06/23 12:57 Completed - Other Procedures and Tests Respiratory Therapy 10/06/23 12:39 Oxygen Nasal Cannula 2 lpm Respiratory Therapy Consult ONCE Assessment/Plan (1) Small bowel obstruction Current Visit: Yes Status: Acute Assessment & Plan: -CT abdomen/pelvis demonstrates narrowing identified in one of the small bowel loops in the left upper quadrant of abdomen showing proximal mottling lucency and proximal dilatation of small bowel loop measuring 5.5 cm in diameter. Consistent with early acute small bowel obstruction. -Bowel rest - NPO, gentle hydration -NG decompression on LIS if recurrent vomiting or significant abdominal distention -Surgical consult Code(s): K56.609 - UNSP INTESTNL OBST, UNSP TO PARTIAL VERSUS COMPLETE OBST (2) Abdominal pain Current Visit: Yes Status: Acute Assessment & Plan: -Candi/lipase elevation -CT abdomen and pelvis demonstrating IMPRESSION: 1. Narrowing identified in one of the small bowel loops in the left upper quadrant of abdomen showing proximal mottling lucency and proximal dilatation of small bowel loop measuring 5.5 cm in diameter. Findings are likely due to early acute small bowel obstruction, would recommend clinical correlation and further work up.3. No evidence of bowel perforation or pneumoperitoneum in the current examination. Air-distended stomach seen. Mild diffuse thickening of the gastric wall seen, with recs for endoscopy. -Surgery consult -Bowel rest with NPO, gentle hydration Code(s): R10.9 - UNSPECIFIED ABDOMINAL PAIN (3) COPD (chronic obstructive pulmonary disease) Current Visit: Yes Status: Acute Assessment & Plan: -Supplemental oxygen for spo2 goal 88-92% -RT consult - Nebs/INH (4) HTN (hypertension) Current Visit: Yes Status: Acute Assessment & Plan: -stable, continue home meds when able to tolerate PO, Hydralazine prn Code(s): I10 - ESSENTIAL (PRIMARY) HYPERTENSION (5) CHF (congestive heart failure) Current Visit: No Status: Chronic Qualifiers: Heart failure chronicity: chronic Assessment & Plan: -Does not appear to be in exacerbation -Recent echo performed 01/01/23: EF 60% IMPRESSION: 1) MILD TO MODERATE CONCENTRIC LEFT VENTRICULAR HYPERTROPHY. 2) NORMAL LEFT VENTRICULAR SYSTOLIC FUNCTION. 3) CALCIFIC AORTIC SCLEROSIS WITHOUT EVIDENCE OF ANY STENOSIS. 4) DIASTOLIC DYSFUNCTION PRESENTED WITH REVERSE MITRAL INFLOW E:A RATIO. 5) TRACE MITRAL REGURGITATION. 6) TRACE TRICUSPID REGURGITATION. 7) MILD PULMONIC INSUFFICIENCY. -Daily weight -Monitor for fluid overload VTE: bilateral SCD PPI: protonix Dispo:2-3 days Code(s): I50.9 - HEART FAILURE, UNSPECIFIED
[2023-10-06] MEDS ORDERED: APRESOLINE 20 MG/ML INJ IV PRN (14:51)
[2023-10-06] MEDS ORDERED: Zofran 4 MG/2 ML VIAL IV PRN (14:51)
[2023-10-06 15:15] LABS: Appearance Clear (Clear); Bacteria None Seen /HPF (None Seen); Bilirubin Negative (Negative); Blood Negative (Negative); Epithelial Cells None Seen /HPF (None Seen); Glucose, Urine Negative (Negative); Hyaline Casts NONE SEEN /LPF (0-2); Ketones Negative (Negative); Leukocyte Esterase Negative (Negative); Nitrite Negative (Negative); Protein,Urine Dip Negative (Negative); RBC 0-2 /HPF (0-5); WBC 0-2 /HPF (0-5)
[2023-10-06 15:40] LABS: ADD URINE CULTURE? NO (NO)
[2023-10-06] MEDS ORDERED: PROVENTIL 2.5 MG/3 ML NEB IH ONE (15:49)
[2023-10-06] MEDS ORDERED: Spiriva 18 Mcg/Cap Inhaler IH ONE (15:50)
--- NOTE | 2023-10-06 15:50 | XRAY ---
CLINICAL HISTORY: NG PLACEMENT TECHNIQUE: Portable X-ray of the chest frontal view COMPARISON: 10/06/2023 FINDINGS: The NG tube with a distal end now noted probably at the gastroesophageal junction, needs to advance slightly further into the stomach for another 5-6 cm. Cardiac size is within normal limits. Redemonstration of emphysematous lungs consistent with COPD changes. Haziness seen in the bilateral lower zone suggesting postinflammatory changes. Small reticular opacities seen in the right lower lobe Crowding of vascular markings mainly in the right lower zone. No major collapse or consolidation. Curvilinear aortic arch calcification seen. Left costophrenic angles appear clear. Shallow right costophrenic angle, further assessment with ultrasound chest advised. Soft tissues and visualized bony rib cage appear normal IMPRESSION: 1. The NG tube with distal tip now noted probably at the gastroesophageal junction, needs to advance slightly further into the stomach for another 5-6 cm. 2. The Rest of the findings remains unchanged. Electronically Signed by: Macy Molina MD. (10/06/2023 15:46:00 EST)
[2023-10-06] MEDS: PROVENTIL 2.5 MG/3 ML NEB IH SCH (15:54)
--- NOTE | 2023-10-06 17:51 | XRAY ---
CLINICAL HISTORY: NG PLACEMENT TECHNIQUE: Portable X-ray of the chest frontal view. COMPARISON: x-ray dated 10/06/2023. FINDINGS: The NG tube has been advanced with the distal end noted probably at the gastric fundus. Cardiac size is within normal limits. Redemonstration of emphysematous lungs consistent with COPD changes. Haziness seen in the bilateral lower zone suggesting postinflammatory changes. Small reticular opacities were seen in the right lower lobe Crowding of vascular markings mainly in the right lower zone. No major collapse or consolidation. Curvilinear aortic arch calcification seen. Left costophrenic angles appear clear. The right costophrenic angle was not included in these views. Soft tissues and visualized bony rib cage appear normal. IMPRESSION: 1. The NG tube has been advanced with the distal end noted probably at the gastric fundus. 2. The Rest of the findings remain unchanged. Electronically Signed by: Macy Molina MD. (10/06/2023 17:46:52 EST)
--- NOTE | 2023-10-06 18:59 | PCM.CONS ---
History of Present Illness - Reason for Consult Chief Complaint: small bowel obstruction Requesting Provider: PAIGE BENÍTEZ MD Consulting Provider: FREDA VERDE MD History of Present Illness: is a 78 year old male. hx per chart reivew and d/w pt. pt states that over the last few months he has been struggling with some constipation. has been intermittently taking laxaive as need. will get bloated, then bm then feel better. he had worsening distension so went to ed. admitted for possible sbo on ct scan. he had a large bm today. he is passing flatus. no abd pain today. no n/v. no real complaints. last c scope probably 5 years ago steph deluna had polyps. inguinal hernia surgery no other abd surgeries. "- History of Present Illness Time Seen by Provider: 10/06/23 11:42 Historian: patient, EMS Exam Limitations: no limitations Patient Subjective Stated Complaint: Pt states "I take laxatives to have a bowel movment and this morning my belly started to swell up and hurt." Triage Nursing Assessment: PT presented alert and oriented X 3, skin pwt able to speak in clear full sentences. Pt tachypneic and tachycardic Physician History: Pt states "I take laxatives to have a bowel movment and this morning my belly started to swell up and hurt." Patient is 78-year-old male with significant past medical history of end-stage COPD with pulmonary fibrosis pulmonary hypertension coronary artery disease has problem with constipation off and on for few months. He did not have a bowel movement for 3 to 4 days so he took a laxative and now he has developed some loose bowel movements followed by gaseous distention of the abdomen. So he came to the emergency room. Timing/Duration: today Quality: fullness Abdominal Pain Onset Location: generalized abdomen Severity of Pain-Max: none Severity of Pain-Current: none Modifying Factors: Improves With: nothing Associated Symptoms: denies symptoms Allergies/Adverse Reactions: nicotine [From Nicoderm CQ] Allergy (Severe, Verified 08/16/23 15:17) Rash Home Medications: Albuterol 2.5 mg/3 ml Neb [Proventil 2.5 mg/3 ml Neb] 1 neb IH Q6H PRN 02/04/14 [History] Aspirin 81 mg PO HS 02/04/14 [History] Omeprazole 20 MG [Prilosec 20 mg] 20 mg PO BIDAC 02/04/14 [History] Nitroglycerin 0.4 mg Tablet [Nitrostat 0.4 MG Tablet] 0.4 mg SL Q5MIN PRN MR X 3 PRN 08/01/16 [History] ALPRAZolam 1 MG [Xanax 1 mg] 1 mg PO BID 10/14/18 [History] Isosorbide Mononitrate 60 mg [Imdur 60MG] 60 mg PO DAILY 06/01/20 [History] Metoprolol Tartrate 25 mg [Lopressor 25MG Tab] 25 mg PO BID 06/01/20 [History] Rosuvastatin Calcium 20 mg PO HS 06/01/20 [History] Spironolactone 25 mg [Aldactone 25 MG] 12.5 mg PO DAILY 01/25/21 [History] Albuterol Sulfate [Proair Digihaler] 2 puffs IH Q6H PRN 03/24/21 [History] Budesonide/Glycopyr/Formoterol [Breztri Aerosphere Inhaler] 2 puffs IH BID 03/24/21 [History] Amlodipine Besylate 2.5 mg PO DAILY 06/12/21 [History] Furosemide 20 mg [Lasix 20 mg] 20 mg PO DAILY 06/12/21 [History] Pramipexole Di-HCl [Mirapex] 0.25 mg PO HS 06/12/21 [History] Carboxymethylcellulose Sodium [Refresh Liquigel] 1 ml OP HS 09/25/21 [History] Latanoprost [Xalatan] 1 ml OP HS 09/25/21 [History] Propylene Glycol/Peg 400 [Lubricating Eye Drop] 15 ml OP QID 09/25/21 [History] Losartan Potassium 50 mg [Cozaar 50 MG] 50 mg PO DAILY 10/06/23 [History] Roflumilast [Daliresp] 250 mcg PO DAILY 10/06/23 [History] Hx Tetanus, Diphtheria Vaccination/Date Given: No Hx Influenza Vaccination/Date Given: Yes Hx Pneumococcal Vaccination/Date Given: Yes Immunizations Up to Date: No Travel Risk - International Travel Have you traveled outside of the country in past 3 weeks: No - Coronavirus Screening Are you exhibiting any of the following symptoms?: No Close contact with a COVID-19 positive Pt in past 14-21 Days: No - Vaccine Status Have you recieved a Covid-19 vaccination: No - Review of Systems Constitutional: No Fever, No Chills Eyes: No Symptoms Ears, Nose, & Throat: No Symptoms Respiratory: No Cough, No Dyspnea Cardiac: No Chest Pain, No Edema, No Syncope Abdominal/Gastrointestinal: Other (abdominal distension), No Abdominal Pain, No Nausea, No Vomiting, No Diarrhea Genitourinary Symptoms: No Dysuria Musculoskeletal: No Back Pain, No Neck Pain Skin: No Rash Neurological: No Dizziness, No Focal Weakness, No Sensory Changes Psychological: No Symptoms Endocrine: No Symptoms All Other Systems: Reviewed and Negative - Past Medical History Pertinent Past Medical History: Yes Neurological History: No Pertinent History ENT History: No Pertinent History Cardiac History: Aneurysm, Congestive Heart Failure, Hypertension Respiratory History: COPD, Sleep Apnea, Other Endocrine Medical History: Diabetes Type II Musculoskeletal History: No Pertinent History GI Medical History: No Pertinent History, GERD History: No Pertinent History Psycho-Social History: Anxiety Male Reproductive Disorders: No Pertinent History Other Medical History: 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 PT wears 4L O2 AT ALL TIMES - Past Surgical History Past Surgical History: Yes Neuro Surgical History: No Pertinent History Cardiac: No Pertinent History Respiratory: Other Gastrointestinal: Hernia Repair Genitourinary: No Pertinent History Musculoskeletal: Orthopedic Surgery Male Surgical History: Vasectomy Other Surgical History: BACK SURGERY, and ear surgery and a left lung biopsy. 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, double hernia repair, - Social History Smoking Status: Former smoker How long have you smoked: 13 Exposure to second hand smoke: No Drug Use: none Patient Lives Alone: No Significant Family History: no pertinent family hx" Medications & Allergies Home Medications: Home Medication List Albuterol 2.5 mg/3 ml Neb [Proventil 2.5 mg/3 ml Neb] 1 neb IH Q6H PRN 02/04/14 [History Confirmed 10/06/23] Aspirin 81 mg PO HS 02/04/14 [History Confirmed 10/06/23] Omeprazole 20 MG [Prilosec 20 mg] 20 mg PO BIDAC 02/04/14 [History Confirmed 10/06/23] Nitroglycerin 0.4 mg Tablet [Nitrostat 0.4 MG Tablet] 0.4 mg SL Q5MIN PRN MR X 3 PRN 08/01/16 [History Confirmed 10/06/23] ALPRAZolam 1 MG [Xanax 1 mg] 1 mg PO BID 10/14/18 [History Confirmed 10/06/23] Isosorbide Mononitrate 60 mg [Imdur 60MG] 60 mg PO DAILY 06/01/20 [History Confirmed 10/06/23] Metoprolol Tartrate 25 mg [Lopressor 25MG Tab] 25 mg PO BID 06/01/20 [History Confirmed 10/06/23] Rosuvastatin Calcium 20 mg PO HS 06/01/20 [History Confirmed 10/06/23] Spironolactone 25 mg [Aldactone 25 MG] 12.5 mg PO DAILY 01/25/21 [History Confirmed 10/06/23] Albuterol Sulfate [Proair Digihaler] 2 puffs IH Q6H PRN 03/24/21 [History Confi rmed 10/06/23] Budesonide/Glycopyr/Formoterol [Breztri Aerosphere Inhaler] 2 puffs IH BID 03/24/21 [History Confirmed 10/06/23] Amlodipine Besylate 2.5 mg PO DAILY 06/12/21 [History Confirmed 10/06/23] Furosemide 20 mg [Lasix 20 mg] 20 mg PO DAILY 06/12/21 [History Confirmed 10/06/23] Pramipexole Di-HCl [Mirapex] 0.25 mg PO HS 06/12/21 [History Confirmed 10/06/23] Carboxymethylcellulose Sodium [Refresh Liquigel] 1 ml OP HS 09/25/21 [History Confirmed 10/06/23] Latanoprost [Xalatan] 1 ml OP HS 09/25/21 [History Confirmed 10/06/23] Propylene Glycol/Peg 400 [Lubricating Eye Drop] 1 drop OP QID 09/25/21 [History Confirmed 10/06/23] Theophylline Anhydrous [Theophylline ER 24Hr] 400 mg PO BID #60 11/20/21 [Rx Confirmed 10/06/23] Losartan Potassium 50 mg [Cozaar 50 MG] 50 mg PO DAILY 10/06/23 [History Confirmed 10/06/23] Prednisone 10 mg [Deltasone 10 mg] 10 mg PO DAILY 10/06/23 [History Confirmed 10/06/23] Roflumilast [Daliresp] 250 mcg PO DAILY 10/06/23 [History Confirmed 10/06/23] Allergies/Adverse Reactions: Allergies Allergy/AdvReac Type Severity Reaction Status Date / Time [facility] Allergy Severe Rash Verified 08/16/23 15:17 - Past Medical History Past Medical History: Yes Neurological History: No Pertinent History ENT History: No Pertinent History Cardiac History: Aneurysm, Congestive Heart Failure, Hypertension Respiratory History: COPD, Sleep Apnea, Other Endocrine Medical History: Diabetes Type II Musculoskelatal History: No Pertinent History GI Medical History: No Pertinent History, GERD History: No Pertinent History Pyscho-Social History: Anxiety Male Reproductive Disorders: No Pertinent History Comment: 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 PT wears 4L O2 AT ALL TIMES - Past Surgical History Past Surgical History: Yes Neuro Surgical History: No Pertinent History Cardiac History: No Pertinent History Respiratory Surgery: Other GI Surgical History: Hernia Repair Genitourinary Surgical Hx: No Pertinent History Musculskeletal Surgical Hx: Orthopedic Surgery Male Surgical History: Vasectomy Other Surgical History: BACK SURGERY, and ear surgery and a left lung biopsy. 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, double hernia repair, Significant Family History: no pertinent family hx - Social History Smoking Status: Former smoker How long have you smoked: 13 Exposure to second hand smoke: No Alcohol: None Drug Use: none - Social Determinants of Health Will the patient participate in the screening: Yes Do you worry about a steady place to live?: No Do you have any problems with any of the following?: No known problems In the past 12 months,have you had to go without utilities?: No Have you or anyone in your house had to go without enough: No Transportation Issues: No Has anyone in your support network made you feel unsafe?: No Does the patient want assistance with any of the above?: No - Physical Exam Vital Signs: Vital Signs - 24 hr Temp Pulse Resp BP BP Pulse Ox 10/06/23 16:02 93 L 10/06/23 14:55 88 28 H 93 L 10/06/23 14:15 97.7 F 85 141/80 99 10/06/23 13:30 88 30 H 137/85 88 L 10/06/23 13:15 87 33 H 139/85 93 L 10/06/23 13:00 83 33 H 140/92 96 10/06/23 12:39 97 10/06/23 12:30 90 28 H 138/81 87 L 10/06/23 12:15 89 34 H 123/75 98 10/06/23 12:00 110 H 29 H 137/84 95 10/06/23 11:45 100 H 24 117/72 96 10/06/23 11:30 96 H 29 H 152/95 97 10/06/23 11:29 110 H 39 H 96 10/06/23 11:20 99 H 25 H 99 10/06/23 11:10 90 26 H 100 10/06/23 11:07 96 H 24 96 10/06/23 11:05 106 H 28 H 86 L 10/06/23 10:45 123/81 10/06/23 10:36 98.0 F 111 H 24 120/70 93 L Additional Findings: 10/06/23 19:08 nad no scleral icterus on O2, pursed lip breathing. reg rate mild dist, totally soft nontender. mild edema Results - Labs Lab/Micro Results: Lab Results-Last 24 Hours 10/06/23 10/06/23 10/06/23 Range/Units 10:30 10:52 10:52 WBC 8.0 (4.0-10.5) x10^3/uL RBC 5.14 (4.1-5.6) x10^6/uL Hgb 13.0 (12.5-18.0) g/dL Hct 43.3 (42-50) % MCV 84.2 (78-100) fL MCH 25.3 L (26-32) pg MCHC 30.0 L (32-36) g/dL RDW 15.6 H (11.5-14.0) % Plt Count 246 (150-450) x10^3/uL MPV 9.2 (7.5-11.0) fL Gran % 75.4 H (36.0-66.0) % Immature Gran % (Auto) 0.6 H (0.00-0.4) % Nucleat RBC Rel Count 0.0 (0.00-0.1) % Eos # (Auto) 0.12 (0-0.5) x10^3/uL Immature Gran # (Auto) 0.05 H (0.00-0.03) x10^3u/L Absolute Lymphs (auto) 1.08 (1.0-4.6) x10^3/uL Absolute Monos (auto) 0.66 (0.0-1.3) x10^3/uL Absolute Nucleated RBC 0.00 (0.00-0.01) x10^3u/L Lymphocytes % 13.6 L (24.0-44.0) % Monocytes % 8.3 (0.0-12.0) % Eosinophils % 1.5 (0.00-5.0) % Basophils % 0.6 (0.0-0.4) % Absolute Granulocytes 6.00 (1.4-6.9) x10^3/uL Basophils # 0.05 (0-0.4) x10^3/uL Sodium 139 (135-145) mmol/L Potassium 4.1 (3.5-5.1) mmol/L Chloride 100 (98-107) mmol/L Carbon Dioxide 34 H (22-30) mmol/L Anion Gap 9.5 (5-15) MEQ/L BUN 12 (9-20) mg/dL Creatinine 0.73 (0.66-1.25) mg/dL Estimated GFR 93.7 ML/MIN Glucose 91 (74-106) mg/dL POC Glucometer (74 to 106) mg/dL Hemoglobin A1c 6.10 H (4.5-6.0) % Calcium 9.4 (8.4-10.2) mg/dL Total Bilirubin 1.50 H (0.2-1.3) mg/dL AST 24 (17-59) U/L ALT 19 (0-50) U/L Alkaline Phosphatase 48 (38-126) U/L Serum Total Protein 6.6 (6.3-8.2) g/dL Albumin 4.2 (3.5-5.0) g/dL Amylase 123 H (30-110) U/L Lipase 447 H (23-300) U/L Urine Color (Yellow) Urine Appearance (Clear) Urine pH (4.6-8.0) Ur Specific [place] (1.005-1.030) Urine Protein (Negative) Urine Glucose (UA) (Negative) mg/dL Urine Ketones (Negative) Urine Blood (Negative) Urine Nitrite (Negative) Urine Bilirubin (Negative) Urine Urobilinogen (0.2) mg/dL Ur Leukocyte Esterase (Negative) U Hyaline Cast (Auto) (0-2) /LPF Urine Microscopic RBC (0-5) /HPF Urine Microscopic WBC (0-5) /HPF Ur Epithelial Cells (None Seen) /HPF Urine Bacteria (None Seen) /HPF Urine Culture Reflexed (NO) 10/06/23 10/06/23 Range/Units 11:45 16:42 WBC (4.0-10.5) x10^3/uL RBC (4.1-5.6) x10^6/uL Hgb (12.5-18.0) g/dL Hct (42-50) % MCV (78-100) fL MCH (26-32) pg MCHC (32-36) g/dL RDW (11.5-14.0) % Plt Count (150-450) x10^3/uL MPV (7.5-11.0) fL Gran % (36.0-66.0) % Immature Gran % (Auto) (0.00-0.4) % Nucleat RBC Rel Count (0.00-0.1) % Eos # (Auto) (0-0.5) x10^3/uL Immature Gran # (Auto) (0.00-0.03) x10^3u/L Absolute Lymphs (auto) (1.0-4.6) x10^3/uL Absolute Monos (auto) (0.0-1.3) x10^3/uL Absolute Nucleated RBC (0.00-0.01) x10^3u/L Lymphocytes % (24.0-44.0) % Monocytes % (0.0-12.0) % Eosinophils % (0.00-5.0) % Basophils % (0.0-0.4) % Absolute Granulocytes (1.4-6.9) x10^3/uL Basophils # (0-0.4) x10^3/uL Sodium (135-145) mmol/L Potassium (3.5-5.1) mmol/L Chloride (98-107) mmol/L Carbon Dioxide (22-30) mmol/L Anion Gap (5-15) MEQ/L BUN (9-20) mg/dL Creatinine (0.66-1.25) mg/dL Estimated GFR ML/MIN Glucose (74-106) mg/dL POC Glucometer 86 (74 to 106) mg/dL Hemoglobin A1c (4.5-6.0) % Calcium (8.4-10.2) mg/dL Total Bilirubin (0.2-1.3) mg/dL AST (17-59) U/L ALT (0-50) U/L Alkaline Phosphatase (38-126) U/L Serum Total Protein (6.3-8.2) g/dL Albumin (3.5-5.0) g/dL Amylase (30-110) U/L Lipase (23-300) U/L Urine Color Yellow (Yellow) Urine Appearance Clear (Clear) Urine pH 7.0 (4.6-8.0) Ur Specific [place] 1.010 (1.005-1.030) Urine Protein Negative (Negative) Urine Glucose (UA) Negative (Negative) mg/dL Urine Ketones Negative (Negative) Urine Blood Negative (Negative) Urine Nitrite Negative (Negative) Urine Bilirubin Negative (Negative) Urine Urobilinogen 1.0 A (0.2) mg/dL Ur Leukocyte Esterase Negative (Negative) U Hyaline Cast (Auto) NONE SEEN (0-2) /LPF Urine Microscopic RBC 0-2 (0-5) /HPF Urine Microscopic WBC 0-2 (0-5) /HPF Ur Epithelial Cells None Seen (None Seen) /HPF Urine Bacteria None Seen (None Seen) /HPF Urine Culture Reflexed NO (NO) Accuchecks Date 10/06/23 Time 17:15 - Radiology Impressions Radiology Exams & Impressions: Radiology Procedures Category Date Time Status ABDOMEN AND PELVIS W/0 CONTRAS [CT] Stat Exams 10/06/23 10:40 Taken CHEST 1 VIEW (PORTABLE) Stat Exams 10/06/23 12:57 Completed CHEST 1 VIEW (PORTABLE) Stat Exams 10/06/23 14:41 Completed CHEST 1 VIEW (PORTABLE) Stat Exams 10/06/23 16:19 Completed - Other Procedures and Tests Respiratory Therapy 10/06/23 12:39 Oxygen Nasal Cannula 2 lpm Assessment/Plan (1) Abdominal pain Current Visit: Yes Status: Acute Assessment & Plan: 78yo with constipation, there is no bowel obstruction. he has had multiple bms. yesterday and a large bm today. + flatus. nontender on exam totally benign. there was benign distension on the ct scan. he is 5 years out from c scope with polyps. discussed with patient we could dc ng and trial clears or just clamp it and see how he does. they had to reposition 3 times so he just wants to leave it in tonight. -clamp ng, dc tmrw if doing well. adat. nothing surgical at this point. -bowel regimen softener daily and laxative as needed. -will need outpt follow up would consider colonoscopy and possible sbft vs ct with oral contrast if cont sx. Code(s): R10.9 - UNSPECIFIED ABDOMINAL PAIN
[2023-10-06] MEDS: Advair Hfa 115/21 Common canister IH SCH (19:10)
[2023-10-06] MEDS ORDERED: DUONEB 0.5-3 MG/3 ml Neb IH ONE (23:24)
[2023-10-07] MEDS ORDERED: PROVENTIL 2.5 MG/3 ML NEB IH PRN (00:10)
[2023-10-07] MEDS ORDERED: Nitrostat 0.4 MG Tablet SL PRN (00:10)
[2023-10-07] MEDS ORDERED: NON-FORMULARY ITEM (Albuterol Sulfate [Proair Digihaler] 90 MCG Aer.Pw.Bas) IH PRN (00:10)
[2023-10-07] MEDS: XANAX 1 MG PO ONE (00:19)
[2023-10-07 06:18] LABS: Absolute Neutrophil Ct (ANC) 4.88 x10^3/uL (1.4-6.9); BASOPHIL % 0.4 % (0.0-0.4); Basophil (Absolute #) 0.03 x10^3/uL (0-0.4); Eosinophil % 2.4 % (0.00-5.0); Eosinophil (Absolute #) 0.16 x10^3/uL (0-0.5); Hematocrit 42.3 % (42-50); Hemoglobin 12.6 g/dL (12.5-18.0); IMMATURE GRAN # 0.03 x10^3u/L (0.00-0.03); IMMATURE GRAN % 0.4 % (0.00-0.4); Mean Cell Volume 85.1 fL (78-100); Mean Corpuscular Hemoglobin 25.4 pg (26-32); Mean Corpuscular Hgb Concent. 29.8 g/dL (32-36); Mean Platelet Volume 9.9 fL (7.5-11.0); Monocyte (Absolute #) 0.57 x10^3/uL (0.0-1.3); Monocytes % 8.5 % (0.0-12.0); Neutrophil % 73.3 % (36.0-66.0); Platelet Count 222 x10^3/uL (150-450); Red Blood Count 4.97 x10^6/uL (4.1-5.6); Red Cell Distribution Width 15.3 % (11.5-14.0); White Blood Count 6.7 x10^3/uL (4.0-10.5)
--- NOTE | 2023-10-07 06:27 | PCM.NOTE ---
Date and Time: 10/07/23625 Subjective Assessment: HPI:Mr. Vance is a 78 year old male with a pmhx of chronic respiratory failure secondary to COPD on 4 L oxygen, coronary artery disease, congestive heart failure, hypertension who presented to ED 10/06/23 with complaints of crampy abdominal pain, bloating, and distention. Patient endorses a 3-4 week history of constipation for which he has been taking miralax and stool softeners at home. He report that he has had a partial bowel movement with a small amount of formed stool today but over the past several weeks it has been mostly loose with mucus. He denies associated nausea or vomiting. In ED, patient tachycardic, tachypneic, and hypotensive. Spo2 @ 98% on 5L. CT imaging showing narrowing identified in one of the small bowel loops in the left upper quadrant of abdomen showing proximal mottling lucency and proximal dilatation of small bowel loop measuring 5.5 cm in diameter. Consistent with early acute small bowel obstruction. Lab findings significant for Tbili at 1.50, amylase at 123, and lipase at 447. Patient admitted with small bowel obstruction. Plan for surgical consult. Objective Data Vital Signs: Vital Signs - 24 hr Temp Pulse Resp BP BP Pulse Ox 10/07/23 04:30 97.6 F 88 24 133/72 94 L 10/07/23 03:58 93 H 28 H 95 10/06/23 23:57 98.2 F 93 H 28 H 138/72 94 L 10/06/23 23:33 93 H 28 H 93 L 10/06/23 20:00 97.8 F 98 H 26 H 174/92 94 L 10/06/23 19:13 85 20 93 L 10/06/23 16:02 93 L 10/06/23 14:55 88 28 H 93 L 10/06/23 14:15 97.7 F 85 141/80 99 10/06/23 13:30 88 30 H 137/85 88 L 10/06/23 13:15 87 33 H 139/85 93 L 10/06/23 13:00 83 33 H 140/92 96 10/06/23 12:39 97 10/06/23 12:30 90 28 H 138/81 87 L 10/06/23 12:15 89 34 H 123/75 98 10/06/23 12:00 110 H 29 H 137/84 95 10/06/23 11:45 100 H 24 117/72 96 10/06/23 11:30 96 H 29 H 152/95 97 10/06/23 11:29 110 H 39 H 96 10/06/23 11:20 99 H 25 H 99 10/06/23 11:10 90 26 H 100 10/06/23 11:07 96 H 24 96 10/06/23 11:05 106 H 28 H 86 L 10/06/23 10:45 123/81 10/06/23 10:36 98.0 F 111 H 24 120/70 93 L Pain Assessment - Last Documented Pain Intensity 6 Intake and Output: Intake & Output 10/04/23 10/05/23 10/06/23 10/07/23 11:59 11:59 11:59 12:59 Intake Total 1661 Output Total 385 400 Balance -385 1261 Weight 85.4 kg 75.6 kg Lab Results: Lab Results-Last 24 Hours 10/06/23 10/06/23 10/06/23 Range/Units 10:30 10:52 10:52 WBC 8.0 (4.0-10.5) x10^3/uL RBC 5.14 (4.1-5.6) x10^6/uL Hgb 13.0 (12.5-18.0) g/dL Hct 43.3 (42-50) % MCV 84.2 (78-100) fL MCH 25.3 L (26-32) pg MCHC 30.0 L (32-36) g/dL RDW 15.6 H (11.5-14.0) % Plt Count 246 (150-450) x10^3/uL MPV 9.2 (7.5-11.0) fL Gran % 75.4 H (36.0-66.0) % Immature Gran % (Auto) 0.6 H (0.00-0.4) % Nucleat RBC Rel Count 0.0 (0.00-0.1) % Eos # (Auto) 0.12 (0-0.5) x10^3/uL Immature Gran # (Auto) 0.05 H (0.00-0.03) x10^3u/L Absolute Lymphs (auto) 1.08 (1.0-4.6) x10^3/uL Absolute Monos (auto) 0.66 (0.0-1.3) x10^3/uL Absolute Nucleated RBC 0.00 (0.00-0.01) x10^3u/L Lymphocytes % 13.6 L (24.0-44.0) % Monocytes % 8.3 (0.0-12.0) % Eosinophils % 1.5 (0.00-5.0) % Basophils % 0.6 (0.0-0.4) % Absolute Granulocytes 6.00 (1.4-6.9) x10^3/uL Basophils # 0.05 (0-0.4) x10^3/uL Sodium 139 (135-145) mmol/L Potassium 4.1 (3.5-5.1) mmol/L Chloride 100 (98-107) mmol/L Carbon Dioxide 34 H (22-30) mmol/L Anion Gap 9.5 (5-15) MEQ/L BUN 12 (9-20) mg/dL Creatinine 0.73 (0.66-1.25) mg/dL Estimated GFR 93.7 ML/MIN Glucose 91 (74-106) mg/dL POC Glucometer (74 to 106) mg/dL Hemoglobin A1c 6.10 H (4.5-6.0) % Calcium 9.4 (8.4-10.2) mg/dL Total Bilirubin 1.50 H (0.2-1.3) mg/dL AST 24 (17-59) U/L ALT 19 (0-50) U/L Alkaline Phosphatase 48 (38-126) U/L Serum Total Protein 6.6 (6.3-8.2) g/dL Albumin 4.2 (3.5-5.0) g/dL Amylase 123 H (30-110) U/L Lipase 447 H (23-300) U/L Urine Color (Yellow) Urine Appearance (Clear) Urine pH (4.6-8.0) Ur Specific [place] (1.005-1.030) Urine Protein (Negative) Urine Glucose (UA) (Negative) mg/dL Urine Ketones (Negative) Urine Blood (Negative) Urine Nitrite (Negative) Urine Bilirubin (Negative) Urine Urobilinogen (0.2) mg/dL Ur Leukocyte Esterase (Negative) U Hyaline Cast (Auto) (0-2) /LPF Urine Microscopic RBC (0-5) /HPF Urine Microscopic WBC (0-5) /HPF Ur Epithelial Cells (None Seen) /HPF Urine Bacteria (None Seen) /HPF Urine Culture Reflexed (NO) 10/06/23 10/06/23 10/06/23 Range/Units 11:45 16:42 20:18 WBC (4.0-10.5) x10^3/uL RBC (4.1-5.6) x10^6/uL Hgb (12.5-18.0) g/dL Hct (42-50) % MCV (78-100) fL MCH (26-32) pg MCHC (32-36) g/dL RDW (11.5-14.0) % Plt Count (150-450) x10^3/uL MPV (7.5-11.0) fL Gran % (36.0-66.0) % Immature Gran % (Auto) (0.00-0.4) % Nucleat RBC Rel Count (0.00-0.1) % Eos # (Auto) (0-0.5) x10^3/uL Immature Gran # (Auto) (0.00-0.03) x10^3u/L Absolute Lymphs (auto) (1.0-4.6) x10^3/uL Absolute Monos (auto) (0.0-1.3) x10^3/uL Absolute Nucleated RBC (0.00-0.01) x10^3u/L Lymphocytes % (24.0-44.0) % Monocytes % (0.0-12.0) % Eosinophils % (0.00-5.0) % Basophils % (0.0-0.4) % Absolute Granulocytes (1.4-6.9) x10^3/uL Basophils # (0-0.4) x10^3/uL Sodium (135-145) mmol/L Potassium (3.5-5.1) mmol/L Chloride (98-107) mmol/L Carbon Dioxide (22-30) mmol/L Anion Gap (5-15) MEQ/L BUN (9-20) mg/dL Creatinine (0.66-1.25) mg/dL Estimated GFR ML/MIN Glucose (74-106) mg/dL POC Glucometer 86 73 L (74 to 106) mg/dL Hemoglobin A1c (4.5-6.0) % Calcium (8.4-10.2) mg/dL Total Bilirubin (0.2-1.3) mg/dL AST (17-59) U/L ALT (0-50) U/L Alkaline Phosphatase (38-126) U/L Serum Total Protein (6.3-8.2) g/dL Albumin (3.5-5.0) g/dL Amylase (30-110) U/L Lipase (23-300) U/L Urine Color Yellow (Yellow) Urine Appearance Clear (Clear) Urine pH 7.0 (4.6-8.0) Ur Specific [place] 1.010 (1.005-1.030) Urine Protein Negative (Negative) Urine Glucose (UA) Negative (Negative) mg/dL Urine Ketones Negative (Negative) Urine Blood Negative (Negative) Urine Nitrite Negative (Negative) Urine Bilirubin Negative (Negative) Urine Urobilinogen 1.0 A (0.2) mg/dL Ur Leukocyte Esterase Negative (Negative) U Hyaline Cast (Auto) NONE SEEN (0-2) /LPF Urine Microscopic RBC 0-2 (0-5) /HPF Urine Microscopic WBC 0-2 (0-5) /HPF Ur Epithelial Cells None Seen (None Seen) /HPF Urine Bacteria None Seen (None Seen) /HPF Urine Culture Reflexed NO (NO) 10/07/23 10/07/23 10/07/23 Range/Units 00:03 04:07 05:32 WBC 6.7 (4.0-10.5) x10^3/uL RBC 4.97 (4.1-5.6) x10^6/uL Hgb 12.6 (12.5-18.0) g/dL Hct 42.3 (42-50) % MCV 85.1 (78-100) fL MCH 25.4 L (26-32) pg MCHC 29.8 L (32-36) g/dL RDW 15.3 H (11.5-14.0) % Plt Count 222 (150-450) x10^3/uL MPV 9.9 (7.5-11.0) fL Gran % 73.3 H (36.0-66.0) % Immature Gran % (Auto) 0.4 (0.00-0.4) % Nucleat RBC Rel Count 0.0 (0.00-0.1) % Eos # (Auto) 0.16 (0-0.5) x10^3/uL Immature Gran # (Auto) 0.03 (0.00-0.03) x10^3u/L Absolute Lymphs (auto) 1.00 (1.0-4.6) x10^3/uL Absolute Monos (auto) 0.57 (0.0-1.3) x10^3/uL Absolute Nucleated RBC 0.00 (0.00-0.01) x10^3u/L Lymphocytes % 15.0 L (24.0-44.0) % Monocytes % 8.5 (0.0-12.0) % Eosinophils % 2.4 (0.00-5.0) % Basophils % 0.4 (0.0-0.4) % Absolute Granulocytes 4.88 (1.4-6.9) x10^3/uL Basophils # 0.03 (0-0.4) x10^3/uL Sodium (135-145) mmol/L Potassium (3.5-5.1) mmol/L Chloride (98-107) mmol/L Carbon Dioxide (22-30) mmol/L Anion Gap (5-15) MEQ/L BUN (9-20) mg/dL Creatinine (0.66-1.25) mg/dL Estimated GFR ML/MIN Glucose (74-106) mg/dL POC Glucometer 124 H 95 (74 to 106) mg/dL Hemoglobin A1c (4.5-6.0) % Calcium (8.4-10.2) mg/dL Total Bilirubin (0.2-1.3) mg/dL AST (17-59) U/L ALT (0-50) U/L Alkaline Phosphatase (38-126) U/L Serum Total Protein (6.3-8.2) g/dL Albumin (3.5-5.0) g/dL Amylase (30-110) U/L Lipase (23-300) U/L Urine Color (Yellow) Urine Appearance (Clear) Urine pH (4.6-8.0) Ur Specific [place] (1.005-1.030) Urine Protein (Negative) Urine Glucose (UA) (Negative) mg/dL Urine Ketones (Negative) Urine Blood (Negative) Urine Nitrite (Negative) Urine Bilirubin (Negative) Urine Urobilinogen (0.2) mg/dL Ur Leukocyte Esterase (Negative) U Hyaline Cast (Auto) (0-2) /LPF Urine Microscopic RBC (0-5) /HPF Urine Microscopic WBC (0-5) /HPF Ur Epithelial Cells (None Seen) /HPF Urine Bacteria (None Seen) /HPF Urine Culture Reflexed (NO) Radiology Exams: Radiology Procedures Category Date Time Status ABDOMEN AND PELVIS W/0 CONTRAS [CT] Stat Exams 10/06/23 10:40 Taken CHEST 1 VIEW (PORTABLE) Stat Exams 10/06/23 12:57 Completed CHEST 1 VIEW (PORTABLE) Stat Exams 10/06/23 14:41 Completed CHEST 1 VIEW (PORTABLE) Stat Exams 10/06/23 16:19 Completed Multi-Disciplinary Progress Notes: Multi-Disciplinary Progress Notes 10/06/23 16:14 Respiratory Note by Tyra Monroe Patient states he does not want to wear BiPap at this time while he has NG in Initialized on 10/06/23 16:14 - END OF NOTE Assessment/Plan (1) Small bowel obstruction Current Visit: Yes Status: Acute Assessment & Plan: -CT abdomen/pelvis demonstrates narrowing identified in one of the small bowel loops in the left upper quadrant of abdomen showing proximal mottling lucency and proximal dilatation of small bowel loop measuring 5.5 cm in diameter. Consistent with early acute small bowel obstruction. -Bowel rest - NPO, gentle hydration -NG decompression on LIS if recurrent vomiting or significant abdominal distention -Surgical consult Code(s): K56.609 - UNSP INTESTNL OBST, UNSP TO PARTIAL VERSUS COMPLETE OBST (2) Abdominal pain Current Visit: Yes Status: Acute Assessment & Plan: -Candi/lipase elevation -CT abdomen and pelvis demonstrating IMPRESSION: 1. Narrowing identified in one of the small bowel loops in the left upper quadrant of abdomen showing proximal mottling lucency and proximal dilatation of small bowel loop measuring 5.5 cm in diameter. Findings are likely due to early acute small bowel obstruction, would recommend clinical correlation and further work up.3. No evidence of bowel perforation or pneumoperitoneum in the current examination. Air-distended stomach seen. Mild diffuse thickening of the gastric wall seen, with recs for endoscopy. -Surgery consult -Bowel rest with NPO, gentle hydration Code(s): R10.9 - UNSPECIFIED ABDOMINAL PAIN (3) COPD (chronic obstructive pulmonary disease) Current Visit: Yes Status: Acute Assessment & Plan: -Supplemental oxygen for spo2 goal 88-92% -RT consult - Nebs/INH (4) HTN (hypertension) Current Visit: Yes Status: Acute Assessment & Plan: -stable, continue home meds when able to tolerate PO, Hydralazine prn Code(s): I10 - ESSENTIAL (PRIMARY) HYPERTENSION (5) CHF (congestive heart failure) Current Visit: No Status: Chronic Qualifiers: Heart failure chronicity: chronic Assessment & Plan: -Does not appear to be in exacerbation -Recent echo performed 01/01/23: EF 60% IMPRESSION: 1) MILD TO MODERATE CONCENTRIC LEFT VENTRICULAR HYPERTROPHY. 2) NORMAL LEFT VENTRICULAR SYSTOLIC FUNCTION. 3) CALCIFIC AORTIC SCLEROSIS WITHOUT EVIDENCE OF ANY STENOSIS. 4) DIASTOLIC DYSFUNCTION PRESENTED WITH REVERSE MITRAL INFLOW E:A RATIO. 5) TRACE MITRAL REGURGITATION. 6) TRACE TRICUSPID REGURGITATION. 7) MILD PULMONIC INSUFFICIENCY. -Daily weight -Monitor for fluid overload VTE: bilateral SCD PPI: protonix Dispo:2-3 days Code(s): K56.609 - UNSP INTESTNL OBST, UNSP TO PARTIAL VERSUS COMPLETE OBST (2) Abdominal pain Current Visit: Yes Status: Acute Code(s): R10.9 - UNSPECIFIED ABDOMINAL PAIN (3) COPD (chronic obstructive pulmonary disease) Current Visit: Yes Status: Acute (4) HTN (hypertension) Current Visit: Yes Status: Acute Code(s): I10 - ESSENTIAL (PRIMARY) HYPERTENSION (5) CHF (congestive heart failure) Current Visit: No Status: Chronic Qualifiers: Heart failure chronicity: chronic Code(s): I50.9 - HEART FAILURE, UNSPECIFIED
[2023-10-07 06:37] LABS: ALBUMIN 3.7 g/dL (3.5-5.0); ANION GAP 9.9 MEQ/L (5-15); BILIRUBIN,TOTAL 1.5 mg/dL (0.2-1.3); Creatinine 1 0.69 mg/dL (0.66-1.25); EST GLOMERULAR FILTRATION RATE 95.3 ML/MIN; Potassium 4.1 mmol/L (3.5-5.1)
[2023-10-07] MEDS ORDERED: NON-FORMULARY ITEM (Omeprazole 20 Mg [Prilosec 20 Mg] 20 MG Capsule.Dr) PO SCH (07:30)
[2023-10-07] MEDS: Spiriva 18 Mcg/Cap Inhaler IH SCH (07:53)
[2023-10-07] MEDS: LASIX 20 MG PO SCH (09:03)
[2023-10-07] MEDS: XANAX 1 MG PO SCH (09:03)
[2023-10-07] MEDS: Lopressor 25MG Tab PO SCH (09:03)
[2023-10-07] MEDS: Cozaar 50 MG PO SCH (09:03)
[2023-10-07] MEDS: DELTASONE 10 MG PO SCH (09:04)
[2023-10-07] MEDS: NORVASC 5 MG PO SCH (09:04)
[2023-10-07] MEDS: Aldactone 25 MG PO SCH (09:04)
[2023-10-07] MEDS: Protonix 40MG Tablet PO SCH (09:04)
[2023-10-07] MEDS: Imdur 60MG PO SCH (09:04)
[2023-10-07] MEDS: THEOPHYLLINE ER 24HR PO SCH (09:06)
[2023-10-07] MEDS ORDERED: MEDICATION INTERVENTION MC SCH ×4 (09:30→09:45)
[2023-10-07] MEDS ORDERED: PEG OP SCH (10:00)
[2023-10-07] MEDS ORDERED: NON-FORMULARY ITEM (Amlodipine Besylate [Amlodipine Besylate] 2.5 MG Tablet) PO SCH (10:00)
[2023-10-07] MEDS ORDERED: PROPYLENE GLYCOL OP SCH (10:00)
[2023-10-07] MEDS ORDERED: NON-FORMULARY ITEM (Budesonide/Glycopyr/Formoterol [Breztri Aerosphere Inhaler] 10.7 GM Hf IH SCH (10:00)
[2023-10-07] MEDS ORDERED: ROFLUMILAST 250 MCG PO SCH (10:00)
--- NOTE | 2023-10-07 10:53 | PCM.DS ---
Discharge Summary Date of Admission: 10/06/23 14:02 Date of Discharge: 10/07/23 Admitting Physician: PAIGE BENÍTEZ MD Consults: Consults on Case 10/06/23 14:12 Consult Surgery ROUTINE Primary Care Provider: FARHAT SEGURA DO Allergies Allergies nicotine [From Nicoderm CQ] Allergy (Severe, Verified 08/16/23 15:17) [facility] Summary - Hospital Course Hospital Course: HPI: Mr. Vance is a 78 year old male with a pmhx of chronic respiratory failure secondary to COPD on 4 L oxygen, coronary artery disease, congestive heart failure, hypertension who presented to ED 10/06/23 with complaints of crampy abdominal pain, bloating, and distention. Patient endorses a 3-4 week history of constipation for which he has been taking miralax and stool softeners at home. He report that he has had a partial bowel movement with a small amount of formed stool today but over the past several weeks it has been mostly loose with mucus. He denies associated nausea or vomiting. In ED, patient tachycardic, tachypneic, and hypotensive. Spo2 @ 98% on 5L. CT imaging showing narrowing identified in one of the small bowel loops in the left upper quadrant of abdomen showing proximal mottling lucency and proximal dilatation of small bowel loop measuring 5.5 cm in diameter. Consistent with early acute small bowel obstruction. Lab findings significant for Tbili at 1.50, amylase at 123, and lipase at 447. Patient admitted with small bowel obstruction. Surgery consulted, patient had large bowel movement last night, no bowel obstruction, NG discontinued, patient tolerating diet. Will discharge today, no surgical intervention needed. Recommendations for bowel regimen with stool softner/laxative PRN, surgery to follow as OP for colonoscopy and possible SBFT if symptoms persist. Discharge Note New Diagnosis: SBO New Medications: none - bowel regimen with softner/laxative prn Follow Up: surgery/PCP Latest Assessment & Plan (1) Small bowel obstruction Current Visit: Yes Status: Acute Assessment & Plan: -CT abdomen/pelvis demonstrates narrowing identified in one of the small bowel loops in the left upper quadrant of abdomen showing proximal mottling lucency and proximal dilatation of small bowel loop measuring 5.5 cm in diameter. Consistent with early acute small bowel obstruction. -Bowel rest - NPO, gentle hydration -NG decompression on LIS if recurrent vomiting or significant abdominal distention -Surgical consult Code(s): K56.609 - UNSP INTESTNL OBST, UNSP TO PARTIAL VERSUS COMPLETE OBST (2) Abdominal pain Current Visit: Yes Status: Acute Assessment & Plan: -Candi/lipase elevation -CT abdomen and pelvis demonstrating IMPRESSION: 1. Narrowing identified in one of the small bowel loops in the left upper quadrant of abdomen showing proximal mottling lucency and proximal dilatation of small bowel loop measuring 5.5 cm in diameter. Findings are likely due to early acute small bowel obstruction, would recommend clinical correlation and further work up.3. No evidence of bowel perforation or pneumoperitoneum in the current examination. Air-distended stomach seen. Mild diffuse thickening of the gastric wall seen, with recs for endoscopy. -Surgery consult -Bowel rest with NPO, gentle hydration Code(s): R10.9 - UNSPECIFIED ABDOMINAL PAIN (3) COPD (chronic obstructive pulmonary disease) Current Visit: Yes Status: Acute Assessment & Plan: -Supplemental oxygen for spo2 goal 88-92% -RT consult - Nebs/INH (4) HTN (hypertension) Current Visit: Yes Status: Acute Assessment & Plan: -stable, continue home meds when able to tolerate PO, Hydralazine prn Code(s): I10 - ESSENTIAL (PRIMARY) HYPERTENSION (5) CHF (congestive heart failure) Current Visit: No Status: Chronic Qualifiers: Heart failure chronicity: chronic Assessment & Plan: -Does not appear to be in exacerbation -Recent echo performed 01/01/23: EF 60% IMPRESSION: 1) MILD TO MODERATE CONCENTRIC LEFT VENTRICULAR HYPERTROPHY. 2) NORMAL LEFT VENTRICULAR SYSTOLIC FUNCTION. 3) CALCIFIC AORTIC SCLEROSIS WITHOUT EVIDENCE OF ANY STENOSIS. 4) DIASTOLIC DYSFUNCTION PRESENTED WITH REVERSE MITRAL INFLOW E:A RATIO. 5) TRACE MITRAL REGURGITATION. 6) TRACE TRICUSPID REGURGITATION. 7) MILD PULMONIC INSUFFICIENCY. -Daily weight -Monitor for fluid overload I spent 35 minutes [id number] with the patient on the day of discharge performing discharge exam, discussing hospital stay and discharge instructions with patient and caregivers, preparation of discharge records, prescriptions & referral forms and addressing any questions/concerns the patient had as documented above. - Vitals & Intake/Output Vital Signs: Vital Signs Temperature 97.7 F 10/07/23 08:10 Pulse Rate 90 10/07/23 08:10 Respiratory Rate 20 10/07/23 08:10 Blood Pressure 138/76 10/07/23 08:10 O2 Sat by Pulse Oximetry 99 10/07/23 08:10 Intake & Output: Intake & Output 10/04/23 10/05/23 10/06/23 10/07/23 11:59 11:59 11:59 12:59 Intake Total 1781 Output Total 385 400 Balance -385 1381 Weight 85.4 kg 75.6 kg - Lab Result Diagrams: 10/07/23 05:32 10/07/23 05:32 Lab Results-Last 24 Hrs: Lab Results-Last 24 Hours 10/06/23 10/06/23 10/06/23 Range/Units 10:30 10:52 10:52 WBC 8.0 (4.0-10.5) x10^3/uL RBC 5.14 (4.1-5.6) x10^6/uL Hgb 13.0 (12.5-18.0) g/dL Hct 43.3 (42-50) % MCV 84.2 (78-100) fL MCH 25.3 L (26-32) pg MCHC 30.0 L (32-36) g/dL RDW 15.6 H (11.5-14.0) % Plt Count 246 (150-450) x10^3/uL MPV 9.2 (7.5-11.0) fL Gran % 75.4 H (36.0-66.0) % Immature Gran % (Auto) 0.6 H (0.00-0.4) % Nucleat RBC Rel Count 0.0 (0.00-0.1) % Eos # (Auto) 0.12 (0-0.5) x10^3/uL Immature Gran # (Auto) 0.05 H (0.00-0.03) x10^3u/L Absolute Lymphs (auto) 1.08 (1.0-4.6) x10^3/uL Absolute Monos (auto) 0.66 (0.0-1.3) x10^3/uL Absolute Nucleated RBC 0.00 (0.00-0.01) x10^3u/L Lymphocytes % 13.6 L (24.0-44.0) % Monocytes % 8.3 (0.0-12.0) % Eosinophils % 1.5 (0.00-5.0) % Basophils % 0.6 (0.0-0.4) % Absolute Granulocytes 6.00 (1.4-6.9) x10^3/uL Basophils # 0.05 (0-0.4) x10^3/uL Sodium 139 (135-145) mmol/L Potassium 4.1 (3.5-5.1) mmol/L Chloride 100 (98-107) mmol/L Carbon Dioxide 34 H (22-30) mmol/L Anion Gap 9.5 (5-15) MEQ/L BUN 12 (9-20) mg/dL Creatinine 0.73 (0.66-1.25) mg/dL Estimated GFR 93.7 ML/MIN Glucose 91 (74-106) mg/dL POC Glucometer (74 to 106) mg/dL Hemoglobin A1c 6.10 H (4.5-6.0) % Calcium 9.4 (8.4-10.2) mg/dL Total Bilirubin 1.50 H (0.2-1.3) mg/dL AST 24 (17-59) U/L ALT 19 (0-50) U/L Alkaline Phosphatase 48 (38-126) U/L Serum Total Protein 6.6 (6.3-8.2) g/dL Albumin 4.2 (3.5-5.0) g/dL Amylase 123 H (30-110) U/L Lipase 447 H (23-300) U/L Urine Color (Yellow) Urine Appearance (Clear) Urine pH (4.6-8.0) Ur Specific Cascade (1.005-1.030) Urine Protein (Negative) Urine Glucose (UA) (Negative) mg/dL Urine Ketones (Negative) Urine Blood (Negative) Urine Nitrite (Negative) Urine Bilirubin (Negative) Urine Urobilinogen (0.2) mg/dL Ur Leukocyte Esterase (Negative) U Hyaline Cast (Auto) (0-2) /LPF Urine Microscopic RBC (0-5) /HPF Urine Microscopic WBC (0-5) /HPF Ur Epithelial Cells (None Seen) /HPF Urine Bacteria (None Seen) /HPF Urine Culture Reflexed (NO) 10/06/23 10/06/23 10/06/23 Range/Units 11:45 16:42 20:18 WBC (4.0-10.5) x10^3/uL RBC (4.1-5.6) x10^6/uL Hgb (12.5-18.0) g/dL Hct (42-50) % MCV (78-100) fL MCH (26-32) pg MCHC (32-36) g/dL RDW (11.5-14.0) % Plt Count (150-450) x10^3/uL MPV (7.5-11.0) fL Gran % (36.0-66.0) % Immature Gran % (Auto) (0.00-0.4) % Nucleat RBC Rel Count (0.00-0.1) % Eos # (Auto) (0-0.5) x10^3/uL Immature Gran # (Auto) (0.00-0.03) x10^3u/L Absolute Lymphs (auto) (1.0-4.6) x10^3/uL Absolute Monos (auto) (0.0-1.3) x10^3/uL Absolute Nucleated RBC (0.00-0.01) x10^3u/L Lymphocytes % (24.0-44.0) % Monocytes % (0.0-12.0) % Eosinophils % (0.00-5.0) % Basophils % (0.0-0.4) % Absolute Granulocytes (1.4-6.9) x10^3/uL Basophils # (0-0.4) x10^3/uL Sodium (135-145) mmol/L Potassium (3.5-5.1) mmol/L Chloride (98-107) mmol/L Carbon Dioxide (22-30) mmol/L Anion Gap (5-15) MEQ/L BUN (9-20) mg/dL Creatinine (0.66-1.25) mg/dL Estimated GFR ML/MIN Glucose (74-106) mg/dL POC Glucometer 86 73 L (74 to 106) mg/dL Hemoglobin A1c (4.5-6.0) % Calcium (8.4-10.2) mg/dL Total Bilirubin (0.2-1.3) mg/dL AST (17-59) U/L ALT (0-50) U/L Alkaline Phosphatase (38-126) U/L Serum Total Protein (6.3-8.2) g/dL Albumin (3.5-5.0) g/dL Amylase (30-110) U/L Lipase (23-300) U/L Urine Color Yellow (Yellow) Urine Appearance Clear (Clear) Urine pH 7.0 (4.6-8.0) Ur Specific Cascade 1.010 (1.005-1.030) Urine Protein Negative (Negative) Urine Glucose (UA) Negative (Negative) mg/dL Urine Ketones Negative (Negative) Urine Blood Negative (Negative) Urine Nitrite Negative (Negative) Urine Bilirubin Negative (Negative) Urine Urobilinogen 1.0 A (0.2) mg/dL Ur Leukocyte Esterase Negative (Negative) U Hyaline Cast (Auto) NONE SEEN (0-2) /LPF Urine Microscopic RBC 0-2 (0-5) /HPF Urine Microscopic WBC 0-2 (0-5) /HPF Ur Epithelial Cells None Seen (None Seen) /HPF Urine Bacteria None Seen (None Seen) /HPF Urine Culture Reflexed NO (NO) 10/07/23 10/07/23 10/07/23 Range/Units 00:03 04:07 05:32 WBC 6.7 (4.0-10.5) x10^3/uL RBC 4.97 (4.1-5.6) x10^6/uL Hgb 12.6 (12.5-18.0) g/dL Hct 42.3 (42-50) % MCV 85.1 (78-100) fL MCH 25.4 L (26-32) pg MCHC 29.8 L (32-36) g/dL RDW 15.3 H (11.5-14.0) % Plt Count 222 (150-450) x10^3/uL MPV 9.9 (7.5-11.0) fL Gran % 73.3 H (36.0-66.0) % Immature Gran % (Auto) 0.4 (0.00-0.4) % Nucleat RBC Rel Count 0.0 (0.00-0.1) % Eos # (Auto) 0.16 (0-0.5) x10^3/uL Immature Gran # (Auto) 0.03 (0.00-0.03) x10^3u/L Absolute Lymphs (auto) 1.00 (1.0-4.6) x10^3/uL Absolute Monos (auto) 0.57 (0.0-1.3) x10^3/uL Absolute Nucleated RBC 0.00 (0.00-0.01) x10^3u/L Lymphocytes % 15.0 L (24.0-44.0) % Monocytes % 8.5 (0.0-12.0) % Eosinophils % 2.4 (0.00-5.0) % Basophils % 0.4 (0.0-0.4) % Absolute Granulocytes 4.88 (1.4-6.9) x10^3/uL Basophils # 0.03 (0-0.4) x10^3/uL Sodium (135-145) mmol/L Potassium (3.5-5.1) mmol/L Chloride (98-107) mmol/L Carbon Dioxide (22-30) mmol/L Anion Gap (5-15) MEQ/L BUN (9-20) mg/dL Creatinine (0.66-1.25) mg/dL Estimated GFR ML/MIN Glucose (74-106) mg/dL POC Glucometer 124 H 95 (74 to 106) mg/dL Hemoglobin A1c (4.5-6.0) % Calcium (8.4-10.2) mg/dL Total Bilirubin (0.2-1.3) mg/dL AST (17-59) U/L ALT (0-50) U/L Alkaline Phosphatase (38-126) U/L Serum Total Protein (6.3-8.2) g/dL Albumin (3.5-5.0) g/dL Amylase (30-110) U/L Lipase (23-300) U/L Urine Color (Yellow) Urine Appearance (Clear) Urine pH (4.6-8.0) Ur Specific Cascade (1.005-1.030) Urine Protein (Negative) Urine Glucose (UA) (Negative) mg/dL Urine Ketones (Negative) Urine Blood (Negative) Urine Nitrite (Negative) Urine Bilirubin (Negative) Urine Urobilinogen (0.2) mg/dL Ur Leukocyte Esterase (Negative) U Hyaline Cast (Auto) (0-2) /LPF Urine Microscopic RBC (0-5) /HPF Urine Microscopic WBC (0-5) /HPF Ur Epithelial Cells (None Seen) /HPF Urine Bacteria (None Seen) /HPF Urine Culture Reflexed (NO) 10/07/23 10/07/23 Range/Units 05:32 08:40 WBC (4.0-10.5) x10^3/uL RBC (4.1-5.6) x10^6/uL Hgb (12.5-18.0) g/dL Hct (42-50) % MCV (78-100) fL MCH (26-32) pg MCHC (32-36) g/dL RDW (11.5-14.0) % Plt Count (150-450) x10^3/uL MPV (7.5-11.0) fL Gran % (36.0-66.0) % Immature Gran % (Auto) (0.00-0.4) % Nucleat RBC Rel Count (0.00-0.1) % Eos # (Auto) (0-0.5) x10^3/uL Immature Gran # (Auto) (0.00-0.03) x10^3u/L Absolute Lymphs (auto) (1.0-4.6) x10^3/uL Absolute Monos (auto) (0.0-1.3) x10^3/uL Absolute Nucleated RBC (0.00-0.01) x10^3u/L Lymphocytes % (24.0-44.0) % Monocytes % (0.0-12.0) % Eosinophils % (0.00-5.0) % Basophils % (0.0-0.4) % Absolute Granulocytes (1.4-6.9) x10^3/uL Basophils # (0-0.4) x10^3/uL Sodium 138 (135-145) mmol/L Potassium 4.1 (3.5-5.1) mmol/L Chloride 102 (98-107) mmol/L Carbon Dioxide 31 H (22-30) mmol/L Anion Gap 9.9 (5-15) MEQ/L BUN 8 L (9-20) mg/dL Creatinine 0.69 (0.66-1.25) mg/dL Estimated GFR 95.3 ML/MIN Glucose 111 H (74-106) mg/dL POC Glucometer 83 (74 to 106) mg/dL Hemoglobin A1c (4.5-6.0) % Calcium 9.0 (8.4-10.2) mg/dL Total Bilirubin 1.50 H (0.2-1.3) mg/dL AST 22 (17-59) U/L ALT 16 (0-50) U/L Alkaline Phosphatase 48 (38-126) U/L Serum Total Protein 6.0 L (6.3-8.2) g/dL Albumin 3.7 (3.5-5.0) g/dL Amylase (30-110) U/L Lipase (23-300) U/L Urine Color (Yellow) Urine Appearance (Clear) Urine pH (4.6-8.0) Ur Specific Cascade (1.005-1.030) Urine Protein (Negative) Urine Glucose (UA) (Negative) mg/dL Urine Ketones (Negative) Urine Blood (Negative) Urine Nitrite (Negative) Urine Bilirubin (Negative) Urine Urobilinogen (0.2) mg/dL Ur Leukocyte Esterase (Negative) U Hyaline Cast (Auto) (0-2) /LPF Urine Microscopic RBC (0-5) /HPF Urine Microscopic WBC (0-5) /HPF Ur Epithelial Cells (None Seen) /HPF Urine Bacteria (None Seen) /HPF Urine Culture Reflexed (NO) Micro Results-Entire Visit: Accuchecks Date 10/07/23 Date 10/06/23 Time 08:43 Time 17:15 - Radiology Exams Ordered Rad Exams-Entire Visit: Radiology Procedures Category Date Time Status ABDOMEN AND PELVIS W/0 CONTRAS [CT] Stat Exams 10/06/23 10:40 Taken CHEST 1 VIEW (PORTABLE) Stat Exams 10/06/23 12:57 Completed CHEST 1 VIEW (PORTABLE) Stat Exams 10/06/23 14:41 Completed CHEST 1 VIEW (PORTABLE) Stat Exams 10/06/23 16:19 Completed - Procedures and Test Procedures and Tests throughout Hospitalization: Therapy Orders & Screens 10/06/23 12:39 Oxygen Nasal Cannula 2 lpm Comment: Respiratory Therapy Consult ONCE Comment: Reason For Exam: 10/06/23 14:55 RT Screen per Nursing Assess ONCE Comment: Protocol Order Physician Instructions: Greater than 3 points order RT Admission Screen Reason For Exam: Triggered on Admission Diagnosis: small bowel obstruction Diagnosis: small bowel obstruction Pneumonia: No Home O2: Yes Asthma: No CHF: Yes Home CPAP/BIPAP: Yes Home Nebs/MDI: Yes Total Points: 18 Discharge Exam General Appearance: no apparent distress Neurologic Exam: alert, oriented x 3, cooperative Eye Exam: PERRL Ears, Nose, Throat Exam: normal ENT inspection Neck Exam: normal inspection Respiratory Exam: normal breath sounds, lungs clear Cardiovascular Exam: regular rate/rhythm, normal heart sounds Gastrointestinal/Abdomen Exam: soft, normal bowel sounds Male Genitalia Exam: deferred Rectal Exam: deferred Extremity Exam: normal inspection Skin Exam: normal color Final Diagnosis/Problem List - Final Discharge Diagnosis/Problem (1) Small bowel obstruction Current Visit: Yes Status: Acute Code(s): K56.609 - UNSP INTESTNL OBST, UNSP TO PARTIAL VERSUS COMPLETE OBST (2) Abdominal pain Current Visit: Yes Status: Acute Code(s): R10.9 - UNSPECIFIED ABDOMINAL PAIN (3) COPD (chronic obstructive pulmonary disease) Current Visit: Yes Status: Acute (4) HTN (hypertension) Current Visit: Yes Status: Acute Code(s): I10 - ESSENTIAL (PRIMARY) HYPERTENSION (5) CHF (congestive heart failure) Current Visit: No Status: Chronic Code(s): I50.9 - HEART FAILURE, UNSPECIFIED - Discharge Disposition: Home, Self-Care Condition: Stable Prescriptions: Continue Omeprazole 20 MG [Prilosec 20 mg] 20 mg PO BIDAC Albuterol 2.5 mg/3 ml Neb [Proventil 2.5 mg/3 ml Neb] 1 neb IH Q6H PRN PRN Reason: sob Aspirin 81 mg PO HS Nitroglycerin 0.4 mg Tablet [Nitrostat 0.4 MG Tablet] 0.4 mg SL Q5MIN PRN MR X 3 PRN PRN Reason: Chest Pain ALPRAZolam 1 MG [Xanax 1 mg] 1 mg PO BID Isosorbide Mononitrate 60 mg [Imdur 60MG] 60 mg PO DAILY Metoprolol Tartrate 25 mg [Lopressor 25MG Tab] 25 mg PO BID Rosuvastatin Calcium 20 mg PO HS Spironolactone 25 mg [Aldactone 25 MG] 12.5 mg PO DAILY Budesonide/Glycopyr/Formoterol [Breztri Aerosphere Inhaler] 2 puffs IH BID Albuterol Sulfate [Proair Digihaler] 2 puffs IH Q6H PRN PRN Reason: sob Pramipexole Di-HCl [Mirapex] 0.25 mg PO HS Furosemide 20 mg [Lasix 20 mg] 20 mg PO DAILY Amlodipine Besylate 2.5 mg PO DAILY Propylene Glycol/Peg 400 [Lubricating Eye Drop] 1 drop OP QID Latanoprost [Xalatan] 1 ml OP HS Carboxymethylcellulose Sodium [Refresh Liquigel] 1 ml OP HS Theophylline Anhydrous [Theophylline ER 24Hr] 400 mg PO BID #60 Roflumilast [Daliresp] 250 mcg PO DAILY Losartan Potassium 50 mg [Cozaar 50 MG] 50 mg PO DAILY Prednisone 10 mg [Deltasone 10 mg] 10 mg PO DAILY Follow up with: FARHAT SEGURA DO [Primary Care Provider] - SIVAKUMAR CAPONE FNP [Family Provider] -
[2023-10-07 11:35] VITALS: O2SAT 98
[2023-10-07 13:28] VITALS: BP 107/64; PULSE 73; RESP 20; TEMP 97.6
[2023-10-07] MEDS ORDERED: Xalatan OP SCH (22:00)
[2023-10-07] MEDS ORDERED: ZOCOR 20MG PO SCH (22:00)
[2023-10-07] MEDS ORDERED: NON-FORMULARY ITEM (Aspirin [Aspirin] 81 MG Tablet) PO SCH (22:00)
[2023-10-07] MEDS ORDERED: ECOTRIN 81 MG PO SCH (22:00)
[2023-10-07] MEDS ORDERED: Mirapex 0.5 MG Tablet PO SCH (22:00)
[2023-10-07] MEDS ORDERED: PRAMIPEXOLE DI HCL 0.25 MG PO SCH (22:00)
[2023-10-07] MEDS ORDERED: NON-FORMULARY ITEM (Rosuvastatin Calcium [Rosuvastatin Calcium] 20 MG Tablet) PO SCH (22:00)
[2023-10-07] MEDS ORDERED: CARBOXYMETHYLCELLULOSE SODIUM OP SCH (22:00)
--- NOTE | 2023-10-08 08:41 | XRAY ---
CLINICAL HISTORY: abdominal distension TECHNIQUE: A CT scan of the abdomen and pelvis was performed without IV contrast. Coronal and sagittal reconstructive images were also obtained. COMPARISON: None. FINDINGS: There is a narrowing identified in one of the small bowel loops in the left upper quadrant of the abdomen showing mottling lucency and proximal dilatation of small bowel loop measuring 5.5 cm in diameter. Findings are likely due to early small bowel obstruction. No evidence of bowel perforation or pneumoperitoneum in the current examination. Air-distended stomach seen. Mild diffuse thickening of the gastric wall seen. Fecal matter containing non-dilated large bowel loops seen. The liver is normal in size. No focal or diffuse parenchymal abnormality. The portal vein, intrahepatic biliary radicals and the bile ducts are normal. The spleen, pancreas, and adrenal glands are unremarkable. The kidneys are unremarkable. They are normal in size and shape. No calculi or hydronephrosis. The gallbladder is normal. No pericholecystic collection or radio-dense calculi in the gall bladder. The appendix is visualized and appears normal. There is no evidence of significant enlargement of the mesenteric or retroperitoneal lymph nodes. The prostate is mildly enlarged indenting the base of urinary bladder. It shows calcific foci. Vascular calcification seen. Osteopenia. Minimal scoliosis of the lumbar spine seen with convexity towards right side. Moderate lumbar spondylotic changes seen as evident by osteophytosis and reduced intervertebral disc spaces at L4-L5 and L5-S1 level with vacuum phenomenon. Extensive centrilobular emphysematous changes were noted in the visualized bilateral lung vergara. Mild basal atelectatic changes were noted on the right side. IMPRESSION: 1. Narrowing identified in one of the small bowel loops in the left upper quadrant of abdomen showing proximal mottling lucency and proximal dilatation of small bowel loop measuring 5.5 cm in diameter. 2. Findings are likely due to early acute small bowel obstruction, would recommend clinical correlation and further work up. 3. No evidence of bowel perforation or pneumoperitoneum in the current examination. 4. Air-distended stomach seen. Mild diffuse thickening of the gastric wall seen, would recommend endoscopy if clinically indicated. ER was called at at 11:04 AM [employer], and the results were communicated with Dr. Lane Frausto. Electronically Signed by: Macy Molina MD. (10/06/2023 12:07:26 EST)
== END 2023-10-07 15:00 | disposition home or self-care (01) ==
LOC: ED 10:35 → MED SURG 14:02
PROVIDERS: ADMIT Internal Medicine; ATTEND Internal Medicine
DX: K56.609 Unspecified intestinal obstruction, unspecified as to partial versus complete obstruction (principal); R10.9 Unspecified abdominal pain; J44.9 Chronic obstructive pulmonary disease, unspecified; I11.0 Hypertensive heart disease with heart failure; I50.9 Heart failure, unspecified; I25.10 Atherosclerotic heart disease of native coronary artery without angina pectoris; R33.9 Retention of urine, unspecified; Z99.81 Dependence on supplemental oxygen; Z79.899 Other long term (current) drug therapy; Z20.828 Contact with and (suspected) exposure to other viral communicable diseases
CPT/HCPCS: 36415; 71045; 74176; 80053; 81001; 82150; 82947; 83036; 83690; 85025; 93005; 94640; 94760; 99285; 99291; Q3014; J7609; A9270-GY

== ENCOUNTER 2023-11-13 15:14 | Observation (INO) | payer MEDICARE ==
[2023-11-13] MEDS ORDERED: DUONEB 0.5-3 MG/3 ml Neb IH ONE (15:25)
--- NOTE | 2023-11-13 15:30 | ERPHSYRPT ---
- History of Present Illness Time Seen by Provider: 11/13/23 15:26 Source: patient Exam Limitations: no limitations Patient Subjective Stated Complaint: shortness of breath Triage Nursing Assessment: Pt brought to the ER by his son, tachypnic, rates chest tightness as 5/10, pulses normal, skin n/w/d, states that the weather has been making it harder for him to breath, diminished lower lobes, upper left lobes wheezy, denies N&V, came into the ER with a wheelchair Physician History: 78-year-old male history of COPD uses 4 L of oxygen via nasal cannula 24 hours/day presents to our ED for evaluation of worsening shortness of breath that he describes as a chest tightness sensation. Symptoms are similar to his previous COPD exacerbations. No chest pain no fever. Symptoms are progressive. Symptoms are moderate in intensity. Activity worsens symptoms. No associated nausea vomiting or diaphoresis. Patient also complains of ear drainage out of the right ear. Patient feels his abdomen is bloated as a bowel movements and not as frequent as normal. Patient otherwise feels well. Son at bedside. They voiced no other complaints or concerns at this time. Portions of this note were created with voice recognition technology. There may be grammatical, spelling, punctuation or sound alike errors Timing/Duration: yesterday Severity: moderate Modifying Factors: Improves With: nothing Associated Symptoms: denies symptoms Allergies/Adverse Reactions: nicotine [From Nicoderm CQ] Allergy (Severe, Verified 11/13/23 15:24) Rash Home Medications: Albuterol 2.5 mg/3 ml Neb [Proventil 2.5 mg/3 ml Neb] 1 neb IH Q6H PRN 02/04/14 [History] Aspirin 81 mg PO HS 02/04/14 [History] Omeprazole 20 MG [Prilosec 20 mg] 20 mg PO BIDAC 02/04/14 [History] Nitroglycerin 0.4 mg Tablet [Nitrostat 0.4 MG Tablet] 0.4 mg SL Q5MIN PRN MR X 3 PRN 08/01/16 [History] ALPRAZolam 1 MG [Xanax 1 mg] 1 mg PO BID 10/14/18 [History] Isosorbide Mononitrate 60 mg [Imdur 60MG] 60 mg PO DAILY 06/01/20 [History] Metoprolol Tartrate 25 mg [Lopressor 25MG Tab] 25 mg PO BID 06/01/20 [History] Rosuvastatin Calcium 20 mg PO HS 06/01/20 [History] Spironolactone 25 mg [Aldactone 25 MG] 12.5 mg PO DAILY 01/25/21 [History] Albuterol Sulfate [Proair Digihaler] 2 puffs IH Q6H PRN 03/24/21 [History] Budesonide/Glycopyr/Formoterol [Breztri Aerosphere Inhaler] 2 puffs IH BID 03/24/21 [History] Furosemide 20 mg [Lasix 20 mg] 20 mg PO DAILY 06/12/21 [History] Pramipexole Di-HCl [Mirapex] 0.25 mg PO HS 06/12/21 [History] Carboxymethylcellulose Sodium [Refresh Liquigel] 1 ml OP HS 09/25/21 [History] Latanoprost [Xalatan] 1 ml OP HS 09/25/21 [History] Propylene Glycol/Peg 400 [Lubricating Eye Drop] 1 drop OP QID 09/25/21 [History] Losartan Potassium 50 mg [Cozaar 50 MG] 50 mg PO DAILY 10/06/23 [History] Prednisone 10 mg [Deltasone 10 mg] 10 mg PO DAILY 10/06/23 [History] Roflumilast [Daliresp] 250 mcg PO DAILY 10/06/23 [History] Sacubitril/Valsartan [Entresto 24 mg-26 mg Tablet] 1 tab PO BID 11/13/23 [History] Hx Tetanus, Diphtheria Vaccination/Date Given: No Hx Influenza Vaccination/Date Given: Yes Hx Pneumococcal Vaccination/Date Given: Yes Travel Risk - International Travel Have you traveled outside of the country in past 3 weeks: No - Emerging Infectious Disease Are you exhibiting symptoms associated with any current EIDs: No - Review of Systems Constitutional: No Symptoms, No Fever, No Chills Eyes: No Symptoms Ears, Nose, & Throat: No Symptoms Respiratory: No Symptoms, No Cough, No Dyspnea Cardiac: No Symptoms, No Chest Pain, No Edema, No Syncope Abdominal/Gastrointestinal: No Symptoms, No Abdominal Pain, No Nausea, No Vomiting, No Diarrhea Genitourinary Symptoms: No Symptoms, No Dysuria Musculoskeletal: No Symptoms, No Back Pain, No Neck Pain Skin: No Symptoms, No Rash Neurological: No Symptoms, No Dizziness, No Focal Weakness, No Sensory Changes Psychological: No Symptoms Endocrine: No Symptoms Hematologic/Lymphatic: No Symptoms Immunological/Allergic: No Symptoms All Other Systems: Reviewed and Negative - Past Medical History Pertinent Past Medical History: Yes Neurological History: No Pertinent History ENT History: No Pertinent History Cardiac History: Aneurysm, Congestive Heart Failure, Hypertension Respiratory History: COPD, Sleep Apnea, Other Endocrine Medical History: Diabetes Type II Musculoskeletal History: No Pertinent History GI Medical History: No Pertinent History, GERD History: No Pertinent History Psycho-Social History: Anxiety Male Reproductive Disorders: No Pertinent History Other Medical History: 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 PT wears 4L O2 AT ALL TIMES - Past Surgical History Past Surgical History: Yes Neuro Surgical History: No Pertinent History Cardiac: No Pertinent History Respiratory: Other Gastrointestinal: Hernia Repair Genitourinary: No Pertinent History Musculoskeletal: Orthopedic Surgery Male Surgical History: Vasectomy Other Surgical History: BACK SURGERY, and ear surgery and a left lung biopsy. 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, double hernia repair, Significant Family History: no pertinent family hx - Social History Smoking Status: Former smoker How long have you smoked: 13 Exposure to second hand smoke: No Drug Use: none Patient Lives Alone: No - Nursing Vital Signs Nursing Vital Signs: Initial Vital Signs Temperature 98.9 F 11/13/23 15:15 Pulse Rate 97 H 11/13/23 15:15 Respiratory Rate 35 H 11/13/23 15:15 Blood Pressure 121/76 11/13/23 15:15 O2 Sat by Pulse Oximetry 96 11/13/23 15:15 Pain Scale Pain Intensity 5 - Physical Exam General Appearance: no apparent distress, alert Eye Exam: PERRL/EOMI, eyes nml inspection Ears, Nose, Throat Exam: normal ENT inspection, TMs normal, pharynx normal, moist mucous membranes Neck Exam: normal inspection, non-tender, supple, full range of motion Respiratory Exam: normal breath sounds, lungs clear, diminished breath sounds, other (Diminished breath sounds), No respiratory distress Cardiovascular Exam: regular rate/rhythm, normal heart sounds, normal peripheral pulses Gastrointestinal/Abdomen Exam: soft, normal bowel sounds, No tenderness, No mass Back Exam: normal inspection, normal range of motion, No CVA tenderness, No vertebral tenderness Extremity Exam: normal inspection, normal range of motion, pelvis stable Neurologic Exam: alert, oriented x 3, cooperative, normal mood/affect, nml cerebellar function, nml station & gait, sensation nml, No motor deficits Skin Exam: normal color, warm, dry, No rash Lymphatic Exam: No adenopathy SpO2 Interpretation: normal SpO2: 97 O2 Delivery: Room Air - Course Nursing assessment & vital signs reviewed: Yes EKG Interpreted by Me: RATE ([id number]), Sinus Rhythm, NORMAL AXIS, NORMAL INTERVALS (ST elevation secondary to IVCD), 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) Ordered Tests: Active Orders 24 hr Category Date Time Status Slide Attendant STAT Care 11/13/23 15:19 Active EKG-ER Only STAT Care 11/13/23 15:19 Active IV Insertion STAT Care 11/13/23 15:19 Active Pulse Oximetry (ED) STAT Care 11/13/23 15:19 Active CHEST 1 VIEW (PORTABLE) Stat Exams 11/13/23 15:19 Completed BLOOD CULTURE Stat Lab 11/13/23 15:40 Received CBC W DIFF Stat Lab 11/13/23 15:32 Completed CMP Stat Lab 11/13/23 15:32 Completed TROPONIN Q4H Lab 11/13/23 15:32 Completed TROPONIN Q4H Lab 11/13/23 19:30 Ordered TROPONIN Q4H Lab 11/13/23 23:30 Ordered Respiratory Therapy Assessment DAILY RT 11/13/23 15:32 Active Medication Summary Discontinued Medications Generic Name Dose Route Start Last Admin Trade Name Freq PRN Reason Stop Dose Admin Albuterol/Ipratropium 3 ml 11/13/23 15:19 11/13/23 15:31 Ipratropium/Albuterol Sulfate 3 Ml Ampul.Neb IH 11/13/23 15:20 3 ml STAT ONE Administration Albuterol/Ipratropium Confirm 11/13/23 15:25 Ipratropium/Albuterol Sulfate 3 Ml Ampul.Neb Administered 11/13/23 15:26 Dose 3 ml IH .STK-MED ONE Methylprednisolone Sodium 0 mg 11/13/23 15:19 11/13/23 15:35 Succinate 125 mg/ Sterile IV 11/13/23 15:20 125 mg Water 2 ml STAT ONE Administration Ceftriaxone Sodium 2 gm in 100 mls @ 200 mls/hr 11/13/23 15:19 11/13/23 16:09 Rocephin 2 Gm/100 Ml Nacl IV 11/13/23 15:48 Infused STAT ONE Infusion Azithromycin 500 mg in 250 mls @ 250 mls/hr 11/13/23 15:19 11/13/23 16:09 Zithromax 500 Mg/ 250 Ml Nacl Premix IV 11/13/23 16:18 250 mls/hr STAT STA 250 mls/hr Administration Ceftriaxone Sodium Confirm 11/13/23 15:32 Rocephin 2 Gm/100 Ml Nacl Administered 11/13/23 15:33 Dose 2 gm in 100 mls @ ud IV .STK-MED ONE Azithromycin Confirm 11/13/23 16:08 Zithromax 500 Mg/ 250 Ml Nacl Premix Administered 11/13/23 16:09 Dose 500 mg in 250 mls @ ud IV .STK-MED ONE Methylprednisolone Sodium Succinate Confirm 11/13/23 15:32 Methylprednis Sod Succ 125 Mg/2 Ml Vial Administered 11/13/23 15:33 Dose 125 mg .ROUTE .STK-MED ONE Sterile Water Confirm 11/13/23 15:32 Water For Injection,Sterile 10 Ml Vial Administered 11/13/23 15:33 Dose 10 ml IJ .STK-MED ONE Lab/Rad Data: Laboratory Result Diagrams 11/13/23 15:32 11/13/23 15:32 Laboratory Results 11/13/23 11/13/23 11/13/23 Range/Units 15:32 15:32 15:32 WBC 8.2 (4.0-10.5) x10^3/uL RBC 4.96 (4.1-5.6) x10^6/uL Hgb 12.7 (12.5-18.0) g/dL Hct 41.1 L (42-50) % MCV 82.9 (78-100) fL MCH 25.6 L (26-32) pg MCHC 30.9 L (32-36) g/dL RDW 16.8 H (11.5-14.0) % Plt Count 301 (150-450) x10^3/uL MPV 9.6 (7.5-11.0) fL Gran % 77.9 H (36.0-66.0) % Immature Gran % (Auto) 0.6 H (0.00-0.4) % Nucleat RBC Rel Count 0.0 (0.00-0.1) % Eos # (Auto) 0.11 (0-0.5) x10^3/uL Immature Gran # (Auto) 0.05 H (0.00-0.03) x10^3u/L Absolute Lymphs (auto) 0.90 L (1.0-4.6) x10^3/uL Absolute Monos (auto) 0.71 (0.0-1.3) x10^3/uL Absolute Nucleated RBC 0.00 (0.00-0.01) x10^3u/L Lymphocytes % 11.0 L (24.0-44.0) % Monocytes % 8.7 (0.0-12.0) % Eosinophils % 1.3 (0.00-5.0) % Basophils % 0.5 (0.0-0.4) % Absolute Granulocytes 6.37 (1.4-6.9) x10^3/uL Basophils # 0.04 (0-0.4) x10^3/uL Sodium 138 (135-145) mmol/L Potassium 4.1 (3.5-5.1) mmol/L Chloride 101 (98-107) mmol/L Carbon Dioxide 32 H (22-30) mmol/L Anion Gap 9.2 (5-15) MEQ/L BUN 14 (9-20) mg/dL Creatinine 0.76 (0.66-1.25) mg/dL Estimated GFR 92.6 ML/MIN Glucose 111 H (74-106) mg/dL Calcium 9.2 (8.4-10.2) mg/dL Total Bilirubin 0.60 (0.2-1.3) mg/dL AST 17 (17-59) U/L ALT 12 (0-50) U/L Alkaline Phosphatase 54 (38-126) U/L Troponin I < 0.012 (0.000-0.033) ng/mL Serum Total Protein 6.5 (6.3-8.2) g/dL Albumin 3.8 (3.5-5.0) g/dL Influenza Type A Ag (NEGATIVE) Influenza Type B Ag (NEGATIVE) RSV (PCR) (NEGATIVE) SARS-CoV-2 (PCR) (NEGATIVE) 11/13/23 Range/Units 15:28 WBC (4.0-10.5) x10^3/uL RBC (4.1-5.6) x10^6/uL Hgb (12.5-18.0) g/dL Hct (42-50) % MCV (78-100) fL MCH (26-32) pg MCHC (32-36) g/dL RDW (11.5-14.0) % Plt Count (150-450) x10^3/uL MPV (7.5-11.0) fL Gran % (36.0-66.0) % Immature Gran % (Auto) (0.00-0.4) % Nucleat RBC Rel Count (0.00-0.1) % Eos # (Auto) (0-0.5) x10^3/uL Immature Gran # (Auto) (0.00-0.03) x10^3u/L Absolute Lymphs (auto) (1.0-4.6) x10^3/uL Absolute Monos (auto) (0.0-1.3) x10^3/uL Absolute Nucleated RBC (0.00-0.01) x10^3u/L Lymphocytes % (24.0-44.0) % Monocytes % (0.0-12.0) % Eosinophils % (0.00-5.0) % Basophils % (0.0-0.4) % Absolute Granulocytes (1.4-6.9) x10^3/uL Basophils # (0-0.4) x10^3/uL Sodium (135-145) mmol/L Potassium (3.5-5.1) mmol/L Chloride (98-107) mmol/L Carbon Dioxide (22-30) mmol/L Anion Gap (5-15) MEQ/L BUN (9-20) mg/dL Creatinine (0.66-1.25) mg/dL Estimated GFR ML/MIN Glucose (74-106) mg/dL Calcium (8.4-10.2) mg/dL Total Bilirubin (0.2-1.3) mg/dL AST (17-59) U/L ALT (0-50) U/L Alkaline Phosphatase (38-126) U/L Troponin I (0.000-0.033) ng/mL Serum Total Protein (6.3-8.2) g/dL Albumin (3.5-5.0) g/dL Influenza Type A Ag NEGATIVE (NEGATIVE) Influenza Type B Ag NEGATIVE (NEGATIVE) RSV (PCR) NEGATIVE (NEGATIVE) SARS-CoV-2 (PCR) NEGATIVE (NEGATIVE) - Progress Progress: improved Progress Note: 78-year-old male presents to our ED for evaluation of progressive shortness of breath over the past day. Patient states symptoms are typical of his usual COPD exacerbation. No associated chest pain. Physical exam reveals diminished breath sounds. Patient received a DuoNeb treatment Solu-Medrol. Patient states he feels much better. Chest x-ray similar to previous. No obvious acute findings. Formal read pending. Patient currently on 4 L nasal cannula as per his baseline. Flu COVID RSV negative. EKG shows no acute ischemic findings. No evidence of heart strain. Patient will require hospitalization for further evaluation and treatment. Antibiotics infused. Vital stable. Plan of care discussed with patient. Patient agrees to admission to [facility] for further evaluation and treatment. Case discussed with hospitalist Dr. Ivory at approximately 4:45 PM. Portions of this note were created with voice recognition technology. There may be grammatical, spelling, punctuation or sound alike errors Complexity problem addressed is moderate acute complicated. No critical care time. Complex of data reviewed and analyzed is extensive. Test ordered test reviewed results analyzed and correlated clinically with history and physical examination. Management discussed with hospitalist who accepts admission to observation. Risk of complication and or risk of morbidity/mortality of patient management is high. Patient requires hospitalization for further evaluation and treatment. Vital stable. Time spent to admit patient is approximately 20 minutes. Plan of care established for shared decision making. No social determinants of health present impede follow-up. Portions of this note were created with voice recognition technology. There may be grammatical, spelling, punctuation or sound alike errors 11/13/23 17:12 Counseled pt/family regarding: lab results, diagnosis, rad results - Departure Departure Disposition: Observation Clinical Impression: Otitis externa, COPD exacerbation Condition: Stable Critical Care Time: No Referrals: FARHAT SEGURA DO [Primary Care Provider] - Follow up/PCP as directed Instructions: Chronic Obstructive Pulmonary Disease
[2023-11-13] MEDS: DUONEB 0.5-3 MG/3 ml Neb IH ONE (15:31)
[2023-11-13] MEDS ORDERED: Sterile H2O 10 ml IJ ONE (15:32)
[2023-11-13] MEDS ORDERED: solu-MEDROL ONE (15:32)
[2023-11-13] MEDS ORDERED: ROCEPHIN 2 GM/100 ML NACL 2 GM/100 ML IVPB IV ONE (15:32)
[2023-11-13] MEDS: solu-MEDROL 125 MG, Sterile H2O 10 ml 2 ML IV ONE (15:35)
[2023-11-13] MEDS: ROCEPHIN 2 GM/100 ML NACL 2 GM/100 ML IVPB IV ONE (15:36)
[2023-11-13 15:49] LABS: Absolute Neutrophil Ct (ANC) 6.37 x10^3/uL (1.4-6.9); BASOPHIL % 0.5 % (0.0-0.4); Basophil (Absolute #) 0.04 x10^3/uL (0-0.4); Eosinophil % 1.3 % (0.00-5.0); Eosinophil (Absolute #) 0.11 x10^3/uL (0-0.5); Hematocrit 41.1 % (42-50); Hemoglobin 12.7 g/dL (12.5-18.0); IMMATURE GRAN # 0.05 x10^3u/L (0.00-0.03); IMMATURE GRAN % 0.6 % (0.00-0.4); Mean Cell Volume 82.9 fL (78-100); Mean Corpuscular Hemoglobin 25.6 pg (26-32); Mean Corpuscular Hgb Concent. 30.9 g/dL (32-36); Mean Platelet Volume 9.6 fL (7.5-11.0); Monocyte (Absolute #) 0.71 x10^3/uL (0.0-1.3); Monocytes % 8.7 % (0.0-12.0); Neutrophil % 77.9 % (36.0-66.0); Platelet Count 301 x10^3/uL (150-450); Red Blood Count 4.96 x10^6/uL (4.1-5.6); Red Cell Distribution Width 16.8 % (11.5-14.0); White Blood Count 8.2 x10^3/uL (4.0-10.5)
[2023-11-13 16:02] LABS: ALBUMIN 3.8 g/dL (3.5-5.0); ANION GAP 9.2 MEQ/L (5-15); BILIRUBIN,TOTAL 0.6 mg/dL (0.2-1.3); Calcium 9.2 mg/dL (8.4-10.2); Creatinine 1 0.76 mg/dL (0.66-1.25); EST GLOMERULAR FILTRATION RATE 92.6 ML/MIN; Potassium 4.1 mmol/L (3.5-5.1); Total Protein 6.5 g/dL (6.3-8.2)
[2023-11-13] MEDS ORDERED: Zithromax 500 MG/ 250 ML NaCl Premix 500 MG/250 ML IVPB IV ONE (16:08)
[2023-11-13] MEDS: Zithromax 500 MG/ 250 ML NaCl Premix 500 MG/250 ML IVPB IV STA (16:09)
[2023-11-13 16:25] LABS: INFLUENZA A NEGATIVE (NEGATIVE); INFLUENZA B NEGATIVE (NEGATIVE); RESPIRATORY SYNCTIAL VIRUS NEGATIVE (NEGATIVE); SARS-CoV-2 Xpert Express NEGATIVE (NEGATIVE)
--- NOTE | 2023-11-13 16:31 | XRAY ---
Indication: Short of breath. COPD. Comparison: October 06, 2023 Portable chest again demonstrates COPD with minimal bibasilar subsegmental atelectasis/scarring and left mid lung suture material. No focal infiltrate, consolidation, or large effusion. Heart not enlarged. Bony thorax intact again with osteopenia. Impression: Nonacute chest with chronic features.
[2023-11-13] MEDS ORDERED: Nitrostat 0.4 MG Tablet SL PRN (19:47)
[2023-11-13] MEDS ORDERED: NON-FORMULARY ITEM (Albuterol Sulfate [Proair Digihaler] 90 MCG Aer.Pw.Bas) IH PRN (19:47)
[2023-11-13] MEDS ORDERED: PROVENTIL 2.5 MG/3 ML NEB IH PRN (19:47)
--- NOTE | 2023-11-13 20:01 | PCM.HP ---
History of Present Illness - Chief Complaint Chief Complaint: COPD exacerbation, otitis externa Left ear History of Present Illness: is a 78 year old male with hx of CHF, COPD on home O2 at 4Ls, HTN, HUONG, DMII came in for SOB, GUERRA and admitted for COPD exacerbation. He was last admitted for same a little over 1 month ago. He denies fever or chills, but has light green sputum. He has mucus stools, but no pain, melena or hematochezia. Appetite has been fine. No chest pain - but he sometimes gets a pain across the lower part of his chest - comes and goes. No pain now. I saw him via telemedicine. He is resting, on his baseline O2 at 4Ls NC. - Review of Systems Constitutional: No Symptoms Eyes: No Symptoms Ears, Nose, & Throat: No Symptoms Respiratory: Cough, Short Of Breath, Wheezing Cardiac: No Symptoms Abdominal/Gastrointestinal: Other (mucus stools) Genitourinary Symptoms: No Symptoms Musculoskeletal: No Symptoms Skin: No Symptoms Neurological: No Symptoms Psychological: No Symptoms Endocrine: No Symptoms Hematologic/Lymphatic: No Symptoms Immunological/Allergic: No Symptoms Medications & Allergies Home Medications: Home Medication List Albuterol 2.5 mg/3 ml Neb [Proventil 2.5 mg/3 ml Neb] 1 neb IH Q6H PRN 02/04/14 [History Confirmed 11/13/23] Aspirin 81 mg PO HS 02/04/14 [History Confirmed 11/13/23] Omeprazole 20 MG [Prilosec 20 mg] 20 mg PO BIDAC 02/04/14 [History Confirmed 11/13/23] Nitroglycerin 0.4 mg Tablet [Nitrostat 0.4 MG Tablet] 0.4 mg SL Q5MIN PRN MR X 3 PRN 08/01/16 [History Confirmed 11/13/23] ALPRAZolam 1 MG [Xanax 1 mg] 1 mg PO BID 10/14/18 [History Confirmed 11/13/23] Isosorbide Mononitrate 60 mg [Imdur 60MG] 60 mg PO DAILY 06/01/20 [History Confirmed 11/13/23] Metoprolol Tartrate 25 mg [Lopressor 25MG Tab] 25 mg PO BID 06/01/20 [History Confirmed 11/13/23] Rosuvastatin Calcium 20 mg PO HS 06/01/20 [History Confirmed 11/13/23] Spironolactone 25 mg [Aldactone 25 MG] 12.5 mg PO DAILY 01/25/21 [History Confirmed 11/13/23] Albuterol Sulfate [Proair Digihaler] 2 puffs IH Q6H PRN 03/24/21 [History Confirmed 11/13/23] Budesonide/Glycopyr/Formoterol [Breztri Aerosphere Inhaler] 2 puffs IH BID 03/24/21 [History Confirmed 11/13/23] Furosemide 20 mg [Lasix 20 mg] 20 mg PO DAILY 06/12/21 [History Confirmed 11/13/23] Pramipexole Di-HCl [Mirapex] 0.25 mg PO HS 06/12/21 [History Confirmed 11/13/23] Carboxymethylcellulose Sodium [Refresh Liquigel] 1 ml OP HS 09/25/21 [History Confirmed 11/13/23] Latanoprost [Xalatan] 1 ml OP HS 09/25/21 [History Confirmed 11/13/23] Propylene Glycol/Peg 400 [Lubricating Eye Drop] 1 drop OP QID 09/25/21 [History Confirmed 11/13/23] Theophylline Anhydrous [Theophylline ER 24Hr] 400 mg PO BID #60 11/20/21 [Rx Confirmed 11/13/23] Losartan Potassium 50 mg [Cozaar 50 MG] 50 mg PO DAILY 10/06/23 [History Confirmed 11/13/23] Prednisone 10 mg [Deltasone 10 mg] 10 mg PO DAILY 10/06/23 [History Confirmed 11/13/23] Roflumilast [Daliresp] 250 mcg PO DAILY 10/06/23 [History Confirmed 11/13/23] Sacubitril/Valsartan [Entresto 24 mg-26 mg Tablet] 1 tab PO BID 11/13/23 [History Confirmed 11/13/23] Allergies/Adverse Reactions: Allergies Allergy/AdvReac Type Severity Reaction Status Date / Time nicotine [From Nicoderm CQ] Allergy Severe Rash Verified 11/13/23 15:24 - Past Medical History Past Medical History: Yes Neurological History: No Pertinent History ENT History: No Pertinent History Cardiac History: Aneurysm, Congestive Heart Failure, Hypertension Respiratory History: COPD, Sleep Apnea, Other Endocrine Medical History: Diabetes Type II Musculoskelatal History: No Pertinent History GI Medical History: No Pertinent History, GERD History: No Pertinent History Pyscho-Social History: Anxiety Male Reproductive Disorders: No Pertinent History Comment: 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 PT wears 4L O2 AT ALL TIMES - Past Surgical History Past Surgical History: Yes Neuro Surgical History: No Pertinent History Cardiac History: No Pertinent History Respiratory Surgery: Other GI Surgical History: Hernia Repair Genitourinary Surgical Hx: No Pertinent History Musculskeletal Surgical Hx: Orthopedic Surgery Male Surgical History: Vasectomy Other Surgical History: BACK SURGERY, and ear surgery and a left lung biopsy. 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, double hernia repair, Significant Family History: no pertinent family hx - Social History Smoking Status: Former smoker How long have you smoked: 13 Exposure to second hand smoke: No Alcohol: None Drug Use: none - Social Determinants of Health Will the patient participate in the screening: Yes Do you worry about a steady place to live?: No Do you have any problems with any of the following?: No known problems In the past 12 months,have you had to go without utilities?: No Have you or anyone in your house had to go without enough: No Transportation Issues: No Has anyone in your support network made you feel unsafe?: No Does the patient want assistance with any of the above?: No - Physical Exam Vital Signs: Vital Signs - 24 hr Temp Pulse Resp BP BP Pulse Ox 11/13/23 19:00 90 20 142/83 96 11/13/23 18:30 122/80 96 11/13/23 18:00 125/78 96 11/13/23 17:30 133/85 96 11/13/23 17:19 97 11/13/23 17:00 93 H 28 H 119/77 94 L 11/13/23 16:30 91 H 21 124/83 95 11/13/23 16:00 85 40 H 135/82 97 11/13/23 15:32 92 H 25 H 96 11/13/23 15:30 95 H 27 H 126/78 98 11/13/23 15:23 97 11/13/23 15:16 95 H 24 121/76 98 11/13/23 15:15 98.9 F 97 H 38 H 121/76 96 General Appearance: no apparent distress, alert Neurologic Exam: alert, oriented x 3, cooperative, normal mood/affect Eye Exam: PERRL/EOMI Ears, Nose, Throat Exam: normal ENT inspection Neck Exam: normal inspection Respiratory Exam: diminished breath sounds, wheezing Cardiovascular Exam: regular rate/rhythm, normal heart sounds Gastrointestinal/Abdomen Exam: soft, normal bowel sounds Rectal Exam: deferred Back Exam: normal inspection Extremity Exam: normal inspection Skin Exam: normal color Results - Labs Lab/Micro Results: Lab Results-Last 24 Hours 11/13/23 11/13/23 11/13/23 Range/Units 15:28 15:32 15:32 WBC 8.2 (4.0-10.5) x10^3/uL RBC 4.96 (4.1-5.6) x10^6/uL Hgb 12.7 (12.5-18.0) g/dL Hct 41.1 L (42-50) % MCV 82.9 (78-100) fL MCH 25.6 L (26-32) pg MCHC 30.9 L (32-36) g/dL RDW 16.8 H (11.5-14.0) % Plt Count 301 (150-450) x10^3/uL MPV 9.6 (7.5-11.0) fL Gran % 77.9 H (36.0-66.0) % Immature Gran % (Auto) 0.6 H (0.00-0.4) % Nucleat RBC Rel Count 0.0 (0.00-0.1) % Eos # (Auto) 0.11 (0-0.5) x10^3/uL Immature Gran # (Auto) 0.05 H (0.00-0.03) x10^3u/L Absolute Lymphs (auto) 0.90 L (1.0-4.6) x10^3/uL Absolute Monos (auto) 0.71 (0.0-1.3) x10^3/uL Absolute Nucleated RBC 0.00 (0.00-0.01) x10^3u/L Lymphocytes % 11.0 L (24.0-44.0) % Monocytes % 8.7 (0.0-12.0) % Eosinophils % 1.3 (0.00-5.0) % Basophils % 0.5 (0.0-0.4) % Absolute Granulocytes 6.37 (1.4-6.9) x10^3/uL Basophils # 0.04 (0-0.4) x10^3/uL Sodium 138 (135-145) mmol/L Potassium 4.1 (3.5-5.1) mmol/L Chloride 101 (98-107) mmol/L Carbon Dioxide 32 H (22-30) mmol/L Anion Gap 9.2 (5-15) MEQ/L BUN 14 (9-20) mg/dL Creatinine 0.76 (0.66-1.25) mg/dL Estimated GFR 92.6 ML/MIN Glucose 111 H (74-106) mg/dL Calcium 9.2 (8.4-10.2) mg/dL Total Bilirubin 0.60 (0.2-1.3) mg/dL AST 17 (17-59) U/L ALT 12 (0-50) U/L Alkaline Phosphatase 54 (38-126) U/L Troponin I (0.000-0.033) ng/mL Serum Total Protein 6.5 (6.3-8.2) g/dL Albumin 3.8 (3.5-5.0) g/dL Influenza Type A Ag NEGATIVE (NEGATIVE) Influenza Type B Ag NEGATIVE (NEGATIVE) RSV (PCR) NEGATIVE (NEGATIVE) SARS-CoV-2 (PCR) NEGATIVE (NEGATIVE) 11/13/23 11/13/23 Range/Units 15:32 18:35 WBC (4.0-10.5) x10^3/uL RBC (4.1-5.6) x10^6/uL Hgb (12.5-18.0) g/dL Hct (42-50) % MCV (78-100) fL MCH (26-32) pg MCHC (32-36) g/dL RDW (11.5-14.0) % Plt Count (150-450) x10^3/uL MPV (7.5-11.0) fL Gran % (36.0-66.0) % Immature Gran % (Auto) (0.00-0.4) % Nucleat RBC Rel Count (0.00-0.1) % Eos # (Auto) (0-0.5) x10^3/uL Immature Gran # (Auto) (0.00-0.03) x10^3u/L Absolute Lymphs (auto) (1.0-4.6) x10^3/uL Absolute Monos (auto) (0.0-1.3) x10^3/uL Absolute Nucleated RBC (0.00-0.01) x10^3u/L Lymphocytes % (24.0-44.0) % Monocytes % (0.0-12.0) % Eosinophils % (0.00-5.0) % Basophils % (0.0-0.4) % Absolute Granulocytes (1.4-6.9) x10^3/uL Basophils # (0-0.4) x10^3/uL Sodium (135-145) mmol/L Potassium (3.5-5.1) mmol/L Chloride (98-107) mmol/L Carbon Dioxide (22-30) mmol/L Anion Gap (5-15) MEQ/L BUN (9-20) mg/dL Creatinine (0.66-1.25) mg/dL Estimated GFR ML/MIN Glucose (74-106) mg/dL Calcium (8.4-10.2) mg/dL Total Bilirubin (0.2-1.3) mg/dL AST (17-59) U/L ALT (0-50) U/L Alkaline Phosphatase (38-126) U/L Troponin I < 0.012 < 0.012 (0.000-0.033) ng/mL Serum Total Protein (6.3-8.2) g/dL Albumin (3.5-5.0) g/dL Influenza Type A Ag (NEGATIVE) Influenza Type B Ag (NEGATIVE) RSV (PCR) (NEGATIVE) SARS-CoV-2 (PCR) (NEGATIVE) - Radiology Impressions Radiology Exams & Impressions: Radiology Procedures Category Date Time Status CHEST 1 VIEW (PORTABLE) Stat Exams 11/13/23 15:19 Completed Assessment/Plan (1) Chronic respiratory failure Current Visit: Yes Status: Acute Assessment & Plan: Due to COPD exacerbation. On baseline home O2 at 4Ls NC. Covid, fluid, RSV all negative. CXR clear Code(s): J96.10 - CHRONIC RESPIRATORY FAILURE, UNSP W HYPOXIA OR HYPERCAPNIA (2) COPD exacerbation Current Visit: Yes Status: Chronic Assessment & Plan: Solumedrol, rocephin/azithromycin, updrafts/INH. he is on his baseline O2 requirement at 4Ls. Code(s): J44.1 - CHRONIC OBSTRUCTIVE PULMONARY DISEASE W (ACUTE) EXACERBATION (3) Otitis externa Current Visit: Yes Status: Acute Assessment & Plan: I think rocephin should help this as well. Code(s): H60.90 - UNSPECIFIED OTITIS EXTERNA, UNSPECIFIED EAR (4) Anxiety Current Visit: No Status: Acute Assessment & Plan: Resume home Alprazolam Code(s): F41.9 - ANXIETY DISORDER, UNSPECIFIED (5) HTN (hypertension) Current Visit: No Status: Acute Assessment & Plan: Resume entresto, Metoprolol, and monitor BP trend Code(s): I10 - ESSENTIAL (PRIMARY) HYPERTENSION (6) CHF (congestive heart failure) Current Visit: No Status: Chronic Assessment & Plan: I think this is more COPD than CHF. Continue entresto, BB and Lasix from home. Trops negative x 2 Code(s): I50.9 - HEART FAILURE, UNSPECIFIED Telemedicine Encounter - Telemedicine Encounter Telemedicine Encounter: The entirety of this encounter was performed via Telemedicine" Pt gave me verbal consent to have this telemedicine visit
[2023-11-13] MEDS ORDERED: HUMALOG SQ PRN (20:04)
[2023-11-13] MEDS ORDERED: Zofran 4 MG/2 ML VIAL IV PRN (20:04)
[2023-11-13] MEDS ORDERED: TYLENOL 325 MG PO PRN (20:04)
[2023-11-13] MEDS ORDERED: ROCEPHIN 1 GM / 100 ML NaCl 1 GM/100 ML IVPB IV SCH (20:15)
[2023-11-13] MEDS: PROVENTIL 2.5 MG/3 ML NEB IH SCH (20:42)
[2023-11-13] MEDS ORDERED: ECOTRIN 81 MG PO ONE (21:43)
[2023-11-13] MEDS: XANAX 1 MG PO SCH (21:45)
[2023-11-13] MEDS: CORTISPORIN EAR DROPS Solution 1OML OT ONE (21:45)
[2023-11-13] MEDS: Lopressor 25MG Tab PO SCH (21:45)
[2023-11-13] MEDS: NON-FORMULARY ITEM (Aspirin [Aspirin] 81 MG Tablet) PO SCH (21:45)
[2023-11-13] MEDS ORDERED: NON-FORMULARY ITEM (Budesonide/Glycopyr/Formoterol [Breztri Aerosphere Inhaler] 10.7 GM Hf IH SCH (22:00)
[2023-11-13] MEDS: CARBOXYMETHYLCELLULOSE SODIUM OP SCH (23:41)
[2023-11-13] MEDS: NON-FORMULARY ITEM (Rosuvastatin Calcium [Rosuvastatin Calcium] 20 MG Tablet) PO SCH (23:42)
[2023-11-13] MEDS: PROPYLENE GLYCOL OP SCH (23:42)
[2023-11-13] MEDS: PRAMIPEXOLE DI HCL 0.25 MG PO SCH (23:42)
[2023-11-13] MEDS: NON-FORMULARY ITEM (Sacubitril/Valsartan [Entresto 24 Mg-26 Mg Tablet] 1 EACH Tablet) PO SCH (23:42)
[2023-11-13] MEDS: PEG OP SCH (23:42)
[2023-11-13] MEDS: THEOPHYLLINE ER 24HR PO SCH (23:50)
[2023-11-13] MEDS: Xalatan OP SCH (23:51)
[2023-11-14 05:00] LABS: Hematocrit 41.2 % (42-50); Hemoglobin 12.8 g/dL (12.5-18.0); Mean Cell Volume 81.3 fL (78-100); Mean Corpuscular Hemoglobin 25.2 pg (26-32); Mean Corpuscular Hgb Concent. 31.1 g/dL (32-36); Mean Platelet Volume 9.3 fL (7.5-11.0); Platelet Count 289 x10^3/uL (150-450); Red Blood Count 5.07 x10^6/uL (4.1-5.6); Red Cell Distribution Width 16.8 % (11.5-14.0); White Blood Count 6.6 x10^3/uL (4.0-10.5)
[2023-11-14 05:23] LABS: ALBUMIN 3.6 g/dL (3.5-5.0); ANION GAP 10.4 MEQ/L (5-15); BILIRUBIN,TOTAL 0.5 mg/dL (0.2-1.3); Calcium 9.3 mg/dL (8.4-10.2); Creatinine 1 0.63 mg/dL (0.66-1.25); Potassium 4.5 mmol/L (3.5-5.1); Total Protein 6.3 g/dL (6.3-8.2)
[2023-11-14] MEDS: Spiriva 18 Mcg/Cap Inhaler IH SCH (05:44)
[2023-11-14] MEDS: Advair Hfa 230/21 Mcg COMMON CANISTER IH SCH (05:44)
[2023-11-14] MEDS ORDERED: VENTOLIN COMMON CANISTER IH PRN (07:14)
[2023-11-14] MEDS ORDERED: NON-FORMULARY ITEM (Omeprazole 20 Mg [Prilosec 20 Mg] 20 MG Capsule.Dr) PO SCH (07:30)
[2023-11-14] MEDS ORDERED: MEDICATION INTERVENTION MC SCH (08:30)
[2023-11-14] MEDS: Protonix 40MG Tablet PO SCH (09:10)
[2023-11-14] MEDS ORDERED: ROFLUMILAST 250 MCG PO SCH (10:00)
[2023-11-14] MEDS: ROCEPHIN 1 GM / 100 ML NaCl 1 GM/100 ML IVPB IV SCH (10:39)
[2023-11-14] MEDS: Artificial Tears 15 ML OP SCH (10:40)
[2023-11-14] MEDS: Aldactone 25 MG PO SCH (10:40)
[2023-11-14] MEDS: Imdur 60MG PO SCH (10:41)
[2023-11-14] MEDS: LASIX 20 MG PO SCH (10:41)
[2023-11-14] MEDS: ENTRESTO 49 MG-51 MG TABLET PO SCH (10:41)
[2023-11-14] MEDS: DALIRESP PO SCH (10:42)
[2023-11-14] MEDS: CORTISPORIN EAR DROPS 10 ML SUSPENSION OT SCH (10:43)
[2023-11-14] MEDS: Zithromax 500 MG/ 250 ML NaCl Premix 500 MG/250 ML IVPB IV SCH (11:31)
--- NOTE | 2023-11-14 12:14 | PCM.NOTE ---
Date and Time: 11/14/23 1200 Subjective Assessment: is a 78 year old male with hx of CHF, COPD on home O2 at 4Ls, HTN, HUONG, DMII who presented to ED 11/13/23 experiencing SOB, GUERRA and admitted for COPD exacerbation and external otitis media. Current treatment with Azithromycin, elin/baci/poly ear drops, solumedrol, nebs/inh. 11/13: Dyspnea improved. Lung auscultation with diminished lung sounds and exp wheezing. Endorses productive cough with green sputum. Plan for continued treatment with steroids/azithromycin/abx ear drops. Remains on baseline oxygen at 4L. Most likely can discharge tomorrow. - Review of Systems Constitutional: No Symptoms Eyes: No Symptoms Ears, Nose, & Throat: No Symptoms Respiratory: Cough, Short Of Breath, Wheezing Cardiac: No Symptoms Abdominal/Gastrointestinal: No Symptoms Genitourinary Symptoms: No Symptoms Musculoskeletal: No Symptoms Skin: No Symptoms Neurological: No Symptoms Psychological: No Symptoms Endocrine: No Symptoms Hematologic/Lymphatic: No Symptoms Immunological/Allergic: No Symptoms Objective Exam General Appearance: no apparent distress Neurologic Exam: alert, oriented x 3, cooperative Skin Exam: normal color Eye Exam: PERRL Ears, Nose, Throat Exam: moist mucous membranes Neck Exam: normal inspection Respiratory Exam: diminished breath sounds, wheezing Cardiovascular Exam: regular rate/rhythm, normal heart sounds Gastrointestinal/Abdomen Exam: soft, normal bowel sounds Extremity Exam: normal inspection Back Exam: normal inspection Male Genitalia Exam: deferred Rectal Exam: deferred Objective Data Vital Signs: Vital Signs - 24 hr Temp Pulse Resp BP BP Pulse Ox 11/14/23 11:46 96.8 F 83 16 96/51 94 L 11/14/23 10:21 80 18 98 11/14/23 07:09 97.5 F 89 18 115/66 98 11/14/23 05:45 80 22 95 11/14/23 04:00 97.8 F 75 20 93/50 95 11/13/23 23:45 97.8 F 97 H 20 123/70 93 L 11/13/23 20:30 113 H 26 H 91 L 11/13/23 19:43 98.1 F 110 H 20 165/94 91 L 11/13/23 19:00 90 20 142/83 96 11/13/23 18:30 122/80 96 11/13/23 18:00 125/78 96 11/13/23 17:30 133/85 96 11/13/23 17:19 97 11/13/23 17:00 93 H 28 H 119/77 94 L 11/13/23 16:30 91 H 21 124/83 95 11/13/23 16:00 85 40 H 135/82 97 11/13/23 15:32 92 H 25 H 96 11/13/23 15:30 95 H 27 H 126/78 98 11/13/23 15:23 97 11/13/23 15:16 95 H 24 121/76 98 11/13/23 15:15 98.9 F 97 H 38 H 121/76 96 Pain Assessment - Last Documented Pain Intensity 0 Intake and Output: Intake & Output 11/12/23 11/13/23 11/14/23 11/15/23 11:59 11:59 11:59 11:59 Intake Total 1780 Output Total 150 Balance 1630 Weight 75.1 kg Lab Results: Lab Results-Last 24 Hours 11/13/23 11/13/23 11/13/23 Range/Units 15:28 15:32 15:32 WBC 8.2 (4.0-10.5) x10^3/uL RBC 4.96 (4.1-5.6) x10^6/uL Hgb 12.7 (12.5-18.0) g/dL Hct 41.1 L (42-50) % MCV 82.9 (78-100) fL MCH 25.6 L (26-32) pg MCHC 30.9 L (32-36) g/dL RDW 16.8 H (11.5-14.0) % Plt Count 301 (150-450) x10^3/uL MPV 9.6 (7.5-11.0) fL Gran % 77.9 H (36.0-66.0) % Immature Gran % (Auto) 0.6 H (0.00-0.4) % Nucleat RBC Rel Count 0.0 (0.00-0.1) % Eos # (Auto) 0.11 (0-0.5) x10^3/uL Immature Gran # (Auto) 0.05 H (0.00-0.03) x10^3u/L Absolute Lymphs (auto) 0.90 L (1.0-4.6) x10^3/uL Absolute Monos (auto) 0.71 (0.0-1.3) x10^3/uL Absolute Nucleated RBC 0.00 (0.00-0.01) x10^3u/L Lymphocytes % 11.0 L (24.0-44.0) % Monocytes % 8.7 (0.0-12.0) % Eosinophils % 1.3 (0.00-5.0) % Basophils % 0.5 (0.0-0.4) % Absolute Granulocytes 6.37 (1.4-6.9) x10^3/uL Basophils # 0.04 (0-0.4) x10^3/uL Sodium 138 (135-145) mmol/L Potassium 4.1 (3.5-5.1) mmol/L Chloride 101 (98-107) mmol/L Carbon Dioxide 32 H (22-30) mmol/L Anion Gap 9.2 (5-15) MEQ/L BUN 14 (9-20) mg/dL Creatinine 0.76 (0.66-1.25) mg/dL Estimated GFR 92.6 ML/MIN Glucose 111 H (74-106) mg/dL POC Glucometer (74 to 106) mg/dL Calcium 9.2 (8.4-10.2) mg/dL Total Bilirubin 0.60 (0.2-1.3) mg/dL AST 17 (17-59) U/L ALT 12 (0-50) U/L Alkaline Phosphatase 54 (38-126) U/L Troponin I (0.000-0.033) ng/mL Serum Total Protein 6.5 (6.3-8.2) g/dL Albumin 3.8 (3.5-5.0) g/dL Influenza Type A Ag NEGATIVE (NEGATIVE) Influenza Type B Ag NEGATIVE (NEGATIVE) RSV (PCR) NEGATIVE (NEGATIVE) SARS-CoV-2 (PCR) NEGATIVE (NEGATIVE) 11/13/23 11/13/23 11/13/23 Range/Units 15:32 18:35 20:51 WBC (4.0-10.5) x10^3/uL RBC (4.1-5.6) x10^6/uL Hgb (12.5-18.0) g/dL Hct (42-50) % MCV (78-100) fL MCH (26-32) pg MCHC (32-36) g/dL RDW (11.5-14.0) % Plt Count (150-450) x10^3/uL MPV (7.5-11.0) fL Gran % (36.0-66.0) % Immature Gran % (Auto) (0.00-0.4) % Nucleat RBC Rel Count (0.00-0.1) % Eos # (Auto) (0-0.5) x10^3/uL Immature Gran # (Auto) (0.00-0.03) x10^3u/L Absolute Lymphs (auto) (1.0-4.6) x10^3/uL Absolute Monos (auto) (0.0-1.3) x10^3/uL Absolute Nucleated RBC (0.00-0.01) x10^3u/L Lymphocytes % (24.0-44.0) % Monocytes % (0.0-12.0) % Eosinophils % (0.00-5.0) % Basophils % (0.0-0.4) % Absolute Granulocytes (1.4-6.9) x10^3/uL Basophils # (0-0.4) x10^3/uL Sodium (135-145) mmol/L Potassium (3.5-5.1) mmol/L Chloride (98-107) mmol/L Carbon Dioxide (22-30) mmol/L Anion Gap (5-15) MEQ/L BUN (9-20) mg/dL Creatinine (0.66-1.25) mg/dL Estimated GFR ML/MIN Glucose (74-106) mg/dL POC Glucometer 136 H (74 to 106) mg/dL Calcium (8.4-10.2) mg/dL Total Bilirubin (0.2-1.3) mg/dL AST (17-59) U/L ALT (0-50) U/L Alkaline Phosphatase (38-126) U/L Troponin I < 0.012 < 0.012 (0.000-0.033) ng/mL Serum Total Protein (6.3-8.2) g/dL Albumin (3.5-5.0) g/dL Influenza Type A Ag (NEGATIVE) Influenza Type B Ag (NEGATIVE) RSV (PCR) (NEGATIVE) SARS-CoV-2 (PCR) (NEGATIVE) 11/13/23 11/14/23 11/14/23 Range/Units 23:27 04:50 04:50 WBC 6.6 (4.0-10.5) x10^3/uL RBC 5.07 (4.1-5.6) x10^6/uL Hgb 12.8 (12.5-18.0) g/dL Hct 41.2 L (42-50) % MCV 81.3 (78-100) fL MCH 25.2 L (26-32) pg MCHC 31.1 L (32-36) g/dL RDW 16.8 H (11.5-14.0) % Plt Count 289 (150-450) x10^3/uL MPV 9.3 (7.5-11.0) fL Gran % (36.0-66.0) % Immature Gran % (Auto) (0.00-0.4) % Nucleat RBC Rel Count (0.00-0.1) % Eos # (Auto) (0-0.5) x10^3/uL Immature Gran # (Auto) (0.00-0.03) x10^3u/L Absolute Lymphs (auto) (1.0-4.6) x10^3/uL Absolute Monos (auto) (0.0-1.3) x10^3/uL Absolute Nucleated RBC (0.00-0.01) x10^3u/L Lymphocytes % (24.0-44.0) % Monocytes % (0.0-12.0) % Eosinophils % (0.00-5.0) % Basophils % (0.0-0.4) % Absolute Granulocytes (1.4-6.9) x10^3/uL Basophils # (0-0.4) x10^3/uL Sodium 135 (135-145) mmol/L Potassium 4.5 (3.5-5.1) mmol/L Chloride 99 (98-107) mmol/L Carbon Dioxide 30 (22-30) mmol/L Anion Gap 10.4 (5-15) MEQ/L BUN 12 (9-20) mg/dL Creatinine 0.63 L (0.66-1.25) mg/dL Estimated GFR 98.0 ML/MIN Glucose 200 H (74-106) mg/dL POC Glucometer (74 to 106) mg/dL Calcium 9.3 (8.4-10.2) mg/dL Total Bilirubin 0.50 (0.2-1.3) mg/dL AST 16 L (17-59) U/L ALT 15 (0-50) U/L Alkaline Phosphatase 52 (38-126) U/L Troponin I < 0.012 (0.000-0.033) ng/mL Serum Total Protein 6.3 (6.3-8.2) g/dL Albumin 3.6 (3.5-5.0) g/dL Influenza Type A Ag (NEGATIVE) Influenza Type B Ag (NEGATIVE) RSV (PCR) (NEGATIVE) SARS-CoV-2 (PCR) (NEGATIVE) 11/14/23 11/14/23 Range/Units 06:55 11:41 WBC (4.0-10.5) x10^3/uL RBC (4.1-5.6) x10^6/uL Hgb (12.5-18.0) g/dL Hct (42-50) % MCV (78-100) fL MCH (26-32) pg MCHC (32-36) g/dL RDW (11.5-14.0) % Plt Count (150-450) x10^3/uL MPV (7.5-11.0) fL Gran % (36.0-66.0) % Immature Gran % (Auto) (0.00-0.4) % Nucleat RBC Rel Count (0.00-0.1) % Eos # (Auto) (0-0.5) x10^3/uL Immature Gran # (Auto) (0.00-0.03) x10^3u/L Absolute Lymphs (auto) (1.0-4.6) x10^3/uL Absolute Monos (auto) (0.0-1.3) x10^3/uL Absolute Nucleated RBC (0.00-0.01) x10^3u/L Lymphocytes % (24.0-44.0) % Monocytes % (0.0-12.0) % Eosinophils % (0.00-5.0) % Basophils % (0.0-0.4) % Absolute Granulocytes (1.4-6.9) x10^3/uL Basophils # (0-0.4) x10^3/uL Sodium (135-145) mmol/L Potassium (3.5-5.1) mmol/L Chloride (98-107) mmol/L Carbon Dioxide (22-30) mmol/L Anion Gap (5-15) MEQ/L BUN (9-20) mg/dL Creatinine (0.66-1.25) mg/dL Estimated GFR ML/MIN Glucose (74-106) mg/dL POC Glucometer 146 H 94 (74 to 106) mg/dL Calcium (8.4-10.2) mg/dL Total Bilirubin (0.2-1.3) mg/dL AST (17-59) U/L ALT (0-50) U/L Alkaline Phosphatase (38-126) U/L Troponin I (0.000-0.033) ng/mL Serum Total Protein (6.3-8.2) g/dL Albumin (3.5-5.0) g/dL Influenza Type A Ag (NEGATIVE) Influenza Type B Ag (NEGATIVE) RSV (PCR) (NEGATIVE) SARS-CoV-2 (PCR) (NEGATIVE) Radiology Exams: Radiology Procedures Category Date Time Status CHEST 1 VIEW (PORTABLE) Stat Exams 11/13/23 15:19 Completed Assessment/Plan (1) Chronic respiratory failure Current Visit: Yes Status: Acute Assessment & Plan: Due to COPD exacerbation. On baseline home O2 at 4Ls NC. Covid, fluid, RSV all negative. CXR clear Code(s): J96.10 - CHRONIC RESPIRATORY FAILURE, UNSP W HYPOXIA OR HYPERCAPNIA (2) COPD exacerbation Current Visit: Yes Status: Chronic Assessment & Plan: Solumedrol, rocephin/azithromycin, updrafts/INH. he is on his baseline O2 requirement at 4Ls. 11/13: -Dyspnea improved, continue azithromycin/nebs/inh/solumedrol -At baseline 4L - supplemental oxygen with spo2 goal 88-92% -d/c rocephin Code(s): J44.1 - CHRONIC OBSTRUCTIVE PULMONARY DISEASE W (ACUTE) EXACERBATION (3) Otitis externa Current Visit: Yes Status: Acute Assessment & Plan: I think rocephin should help this as well. 11/13: -continue elin/polymyxin/hydrocortisone drops Code(s): H60.90 - UNSPECIFIED OTITIS EXTERNA, UNSPECIFIED EAR (4) Anxiety Current Visit: No Status: Acute Assessment & Plan: Resume home Alprazolam Code(s): F41.9 - ANXIETY DISORDER, UNSPECIFIED (5) HTN (hypertension) Current Visit: No Status: Acute Assessment & Plan: Resume entresto, Metoprolol, and monitor BP trend Code(s): I10 - ESSENTIAL (PRIMARY) HYPERTENSION (6) CHF (congestive heart failure) Current Visit: No Status: Chronic Assessment & Plan: I think this is more COPD than CHF. Continue entresto, BB and Lasix from home. Trops negative x 2 11/13: -Does not appear to be in exacerbation, continue appropriate home medications Code(s): I50.9 - HEART FAILURE, UNSPECIFIED Code(s): J96.10 - CHRONIC RESPIRATORY FAILURE, UNSP W HYPOXIA OR HYPERCAPNIA (2) Otitis externa Current Visit: Yes Status: Acute Code(s): H60.90 - UNSPECIFIED OTITIS EXTERNA, UNSPECIFIED EAR (3) COPD exacerbation Current Visit: Yes Status: Chronic Code(s): J44.1 - CHRONIC OBSTRUCTIVE PULMONARY DISEASE W (ACUTE) EXACERBATION (4) Anxiety Current Visit: No Status: Acute Code(s): F41.9 - ANXIETY DISORDER, UNSPECIFIED (5) HTN (hypertension) Current Visit: No Status: Acute Code(s): I10 - ESSENTIAL (PRIMARY) HYPERTENSION (6) CHF (congestive heart failure) Current Visit: No Status: Chronic Code(s): I50.9 - HEART FAILURE, UNSPECIFIED
[2023-11-14] MEDS ORDERED: Artificial Tears 15 ML OP SCH (22:00)
[2023-11-14] MEDS: ZOCOR 20MG PO SCH (22:53)
[2023-11-14] MEDS: ECOTRIN 81 MG PO SCH (22:53)
[2023-11-14] MEDS: Mirapex 0.5 MG Tablet PO SCH (22:55)
[2023-11-14] MEDS: solu-MEDROL 40 MG, Sterile H2O 10 ml 1 ML IV SCH (22:56)
[2023-11-14] MEDS: Xalatan OP SCH (22:58)
[2023-11-15 05:20] LABS: Absolute Neutrophil Ct (ANC) 9.05 x10^3/uL (1.4-6.9); BASOPHIL % 0.2 % (0.0-0.4); Basophil (Absolute #) 0.02 x10^3/uL (0-0.4); Eosinophil % 0.2 % (0.00-5.0); Eosinophil (Absolute #) 0.02 x10^3/uL (0-0.5); Hematocrit 40.3 % (42-50); Hemoglobin 12.6 g/dL (12.5-18.0); IMMATURE GRAN # 0.04 x10^3u/L (0.00-0.03); IMMATURE GRAN % 0.4 % (0.00-0.4); Lymphocytes % 5.1 % (24.0-44.0); Mean Cell Volume 82.2 fL (78-100); Mean Corpuscular Hemoglobin 25.7 pg (26-32); Mean Corpuscular Hgb Concent. 31.3 g/dL (32-36); Monocyte (Absolute #) 0.08 x10^3/uL (0.0-1.3); Monocytes % 0.8 % (0.0-12.0); Neutrophil % 93.3 % (36.0-66.0); Platelet Count 347 x10^3/uL (150-450); Red Cell Distribution Width 17.2 % (11.5-14.0); White Blood Count 9.7 x10^3/uL (4.0-10.5)
[2023-11-15 07:11] LABS: Slide Review 1 YES
[2023-11-15 08:08] LABS: ALBUMIN 3.8 g/dL (3.5-5.0); ANION GAP 10.9 MEQ/L (5-15); BILIRUBIN,TOTAL 0.5 mg/dL (0.2-1.3); Calcium 9.3 mg/dL (8.4-10.2); Creatinine 1 0.7 mg/dL (0.66-1.25); EST GLOMERULAR FILTRATION RATE 94.9 ML/MIN; Potassium 4.3 mmol/L (3.5-5.1); Total Protein 6.6 g/dL (6.3-8.2)
[2023-11-15] MEDS: ENOXAPARIN SODIUM SQ SCH (08:51)
[2023-11-15] MEDS: DELTASONE 20 MG PO SCH (08:53)
--- NOTE | 2023-11-15 10:31 | PCM.DS ---
Discharge Summary Date of Admission: 11/13/23 19:22 Date of Discharge: 11/15/23 Admitting Physician: PAIGE BENÍTEZ MD Primary Care Provider: FARHAT SEGURA DO Allergies Allergies nicotine [From [facility]] Allergy (Severe, Verified 11/13/23 15:24) [facility] Summary - Hospital Course Hospital Course: is a 78 year old male with hx of CHF, COPD on home O2 at 4Ls, HTN, HUONG, DMII who presented to ED 11/13/23 experiencing SOB, GUERRA and admitted for COPD exacerbation and external otitis media. CXR non-acute with chronic features. IP treatment with Azithromycin, roland/baci/poly ear drops, solumedrol, nebs/inh. Patient has finished course of azithromycin. He is at his baseline oxygen of 4L. Dyspnea has improved. Will discharge on prednisone burst/ ear drops for external otitis media for a total of 10 days. Discharge Note New Diagnosis:copd exacerbation/otitis externa New Medications: prednisone/roland/baci/poly ear drops Follow Up: pcp/pulm Latest Assessment & Plan (1) Chronic respiratory failure Current Visit: Yes Status: Acute Assessment & Plan: Due to COPD exacerbation. On baseline home O2 at 4Ls NC. Covid, fluid, RSV all negative. CXR clear Code(s): J96.10 - CHRONIC RESPIRATORY FAILURE, UNSP W HYPOXIA OR HYPERCAPNIA (2) COPD exacerbation Current Visit: Yes Status: Chronic Assessment & Plan: Solumedrol, rocephin/azithromycin, updrafts/INH. he is on his baseline O2 requirement at 4Ls. 11/13: -Dyspnea improved, continue azithromycin/nebs/inh/solumedrol -At baseline 4L - supplemental oxygen with spo2 goal 88-92% -d/c rocephin Code(s): J44.1 - CHRONIC OBSTRUCTIVE PULMONARY DISEASE W (ACUTE) EXACERBATION (3) Otitis externa Current Visit: Yes Status: Acute Assessment & Plan: I think rocephin should help this as well. 11/13: -continue roland/polymyxin/hydrocortisone drops Code(s): H60.90 - UNSPECIFIED OTITIS EXTERNA, UNSPECIFIED EAR (4) Anxiety Current Visit: No Status: Acute Assessment & Plan: Resume home Alprazolam Code(s): F41.9 - ANXIETY DISORDER, UNSPECIFIED (5) HTN (hypertension) Current Visit: No Status: Acute Assessment & Plan: Resume entresto, Metoprolol, and monitor BP trend Code(s): I10 - ESSENTIAL (PRIMARY) HYPERTENSION (6) CHF (congestive heart failure) Current Visit: No Status: Chronic Assessment & Plan: I think this is more COPD than CHF. Continue entresto, BB and Lasix from home. Trops negative x 2 11/13: -Does not appear to be in exacerbation, continue appropriate home medications Code(s): I50.9 - HEART FAILURE, UNSPECIFIED Code(s): J96.10 - CHRONIC RESPIRATORY FAILURE, UNSP W HYPOXIA OR HYPERCAPNIA I spent 35 minutes [id number] with the patient on the day of discharge performing discharge exam, discussing hospital stay and discharge instructions with patient and caregivers, preparation of discharge records, prescriptions & referral forms and addressing any questions/concerns the patient had as documented above. - Vitals & Intake/Output Vital Signs: Vital Signs Temperature 96.3 F 11/15/23 07:00 Pulse Rate 86 11/15/23 07:00 Respiratory Rate 19 11/15/23 07:00 Blood Pressure 100/59 11/15/23 07:00 O2 Sat by Pulse Oximetry 99 11/15/23 07:00 Intake & Output: Intake & Output 11/12/23 11/13/23 11/14/23 11/15/23 11:59 11:59 11:59 11:59 Intake Total 1780 2477 Output Total 150 1450 Balance 1630 1027 Weight 75.1 kg - Lab Result Diagrams: 11/15/23 04:35 11/15/23 04:35 Lab Results-Last 24 Hrs: Lab Results-Last 24 Hours 11/14/23 11/14/23 11/14/23 Range/Units 11:41 15:58 21:08 WBC (4.0-10.5) x10^3/uL RBC (4.1-5.6) x10^6/uL Hgb (12.5-18.0) g/dL Hct (42-50) % MCV (78-100) fL MCH (26-32) pg MCHC (32-36) g/dL RDW (11.5-14.0) % Plt Count (150-450) x10^3/uL MPV (7.5-11.0) fL Gran % (36.0-66.0) % Immature Gran % (Auto) (0.00-0.4) % Nucleat RBC Rel Count (0.00-0.1) % Eos # (Auto) (0-0.5) x10^3/uL Immature Gran # (Auto) (0.00-0.03) x10^3u/L Absolute Lymphs (auto) (1.0-4.6) x10^3/uL Absolute Monos (auto) (0.0-1.3) x10^3/uL Absolute Nucleated RBC (0.00-0.01) x10^3u/L Lymphocytes % (24.0-44.0) % Monocytes % (0.0-12.0) % Eosinophils % (0.00-5.0) % Basophils % (0.0-0.4) % Absolute Granulocytes (1.4-6.9) x10^3/uL Basophils # (0-0.4) x10^3/uL Sodium (135-145) mmol/L Potassium (3.5-5.1) mmol/L Chloride (98-107) mmol/L Carbon Dioxide (22-30) mmol/L Anion Gap (5-15) MEQ/L BUN (9-20) mg/dL Creatinine (0.66-1.25) mg/dL Estimated GFR ML/MIN Glucose (74-106) mg/dL POC Glucometer 94 128 H 126 H (74 to 106) mg/dL Calcium (8.4-10.2) mg/dL Total Bilirubin (0.2-1.3) mg/dL AST (17-59) U/L ALT (0-50) U/L Alkaline Phosphatase (38-126) U/L Serum Total Protein (6.3-8.2) g/dL Albumin (3.5-5.0) g/dL Slides for Path Review 11/15/23 11/15/23 11/15/23 Range/Units 04:35 04:35 06:34 WBC 9.7 (4.0-10.5) x10^3/uL RBC 4.90 (4.1-5.6) x10^6/uL Hgb 12.6 (12.5-18.0) g/dL Hct 40.3 L (42-50) % MCV 82.2 (78-100) fL MCH 25.7 L (26-32) pg MCHC 31.3 L (32-36) g/dL RDW 17.2 H (11.5-14.0) % Plt Count 347 (150-450) x10^3/uL MPV 10.0 (7.5-11.0) fL Gran % 93.3 H (36.0-66.0) % Immature Gran % (Auto) 0.4 (0.00-0.4) % Nucleat RBC Rel Count 0.0 (0.00-0.1) % Eos # (Auto) 0.02 (0-0.5) x10^3/uL Immature Gran # (Auto) 0.04 H (0.00-0.03) x10^3u/L Absolute Lymphs (auto) 0.50 L (1.0-4.6) x10^3/uL Absolute Monos (auto) 0.08 (0.0-1.3) x10^3/uL Absolute Nucleated RBC 0.00 (0.00-0.01) x10^3u/L Lymphocytes % 5.1 L (24.0-44.0) % Monocytes % 0.8 (0.0-12.0) % Eosinophils % 0.2 (0.00-5.0) % Basophils % 0.2 (0.0-0.4) % Absolute Granulocytes 9.05 H (1.4-6.9) x10^3/uL Basophils # 0.02 (0-0.4) x10^3/uL Sodium 137 (135-145) mmol/L Potassium 4.3 (3.5-5.1) mmol/L Chloride 97 L (98-107) mmol/L Carbon Dioxide 33 H (22-30) mmol/L Anion Gap 10.9 (5-15) MEQ/L BUN 10 (9-20) mg/dL Creatinine 0.70 (0.66-1.25) mg/dL Estimated GFR 94.9 ML/MIN Glucose 178 H (74-106) mg/dL POC Glucometer 146 H (74 to 106) mg/dL Calcium 9.3 (8.4-10.2) mg/dL Total Bilirubin 0.50 (0.2-1.3) mg/dL AST 18 (17-59) U/L ALT 13 (0-50) U/L Alkaline Phosphatase 55 (38-126) U/L Serum Total Protein 6.6 (6.3-8.2) g/dL Albumin 3.8 (3.5-5.0) g/dL Slides for Path Review YES Micro Results-Entire Visit: Microbiology 11/13/23 15:40 Blood Culture - Preliminary Blood 11/13/23 15:32 Blood Culture - Preliminary Blood Accuchecks Date 11/15/23 Date 11/14/23 Date 11/14/23 Date 11/14/23 Time 07:14 Time 21:00 - Radiology Exams Ordered Rad Exams-Entire Visit: Radiology Procedures Category Date Time Status CHEST 1 VIEW (PORTABLE) Stat Exams 11/13/23 15:19 Completed - Procedures and Test Procedures and Tests throughout Hospitalization: Therapy Orders & Screens 11/13/23 15:32 Respiratory Therapy Assessment DAILY Comment: 11/13/23 20:56 Oxygen Nasal Cannula 4 lpm Comment: Diagnosis: COPD exacerbation, otitis externa Left ear Respiratory Therapy Assessment DAILY Comment: Diagnosis: COPD exacerbation, otitis externa Left ear 11/13/23 20:57 Respiratory MDI DAILY Comment: Diagnosis: COPD exacerbation, otitis externa Left ear 11/14/23 09:07 Incentive Spirometry UD Comment: Diagnosis: COPD exacerbation, otitis externa Left ear Discharge Exam General Appearance: no apparent distress Neurologic Exam: alert, oriented x 3, cooperative Eye Exam: PERRL Ears, Nose, Throat Exam: normal ENT inspection Neck Exam: normal inspection Respiratory Exam: diminished breath sounds Cardiovascular Exam: regular rate/rhythm, normal heart sounds Gastrointestinal/Abdomen Exam: soft, normal bowel sounds Male Genitalia Exam: deferred Rectal Exam: deferred Back Exam: normal inspection Extremity Exam: normal inspection Final Diagnosis/Problem List - Final Discharge Diagnosis/Problem (1) Chronic respiratory failure Current Visit: Yes Status: Acute Code(s): J96.10 - CHRONIC RESPIRATORY FAILURE, UNSP W HYPOXIA OR HYPERCAPNIA (2) Otitis externa Current Visit: Yes Status: Acute Code(s): H60.90 - UNSPECIFIED OTITIS EXTERNA, UNSPECIFIED EAR (3) COPD exacerbation Current Visit: Yes Status: Chronic Code(s): J44.1 - CHRONIC OBSTRUCTIVE PULMONARY DISEASE W (ACUTE) EXACERBATION (4) Anxiety Current Visit: No Status: Acute Code(s): F41.9 - ANXIETY DISORDER, UNSPECIFIED (5) HTN (hypertension) Current Visit: No Status: Acute Code(s): I10 - ESSENTIAL (PRIMARY) HYPERTENSION (6) CHF (congestive heart failure) Current Visit: No Status: Chronic Code(s): I50.9 - HEART FAILURE, UNSPECIFIED - Discharge Disposition: Home, Self-Care Condition: Stable Prescriptions: New Roland/Baci/Poly/Hc Ear Susp [Cortisporin Ear Drops 10 ml Suspension] 4 drops OT TID 8 Days #1 unit Prednisone 20 mg [Deltasone 20 mg] 20 mg PO BID 5 Days #10 tablet Continue Omeprazole 20 MG [Prilosec 20 mg] 20 mg PO BIDAC Albuterol 2.5 mg/3 ml Neb [Proventil 2.5 mg/3 ml Neb] 1 neb IH Q6H PRN PRN Reason: sob Aspirin 81 mg PO HS Nitroglycerin 0.4 mg Tablet [Nitrostat 0.4 MG Tablet] 0.4 mg SL Q5MIN PRN MR X 3 PRN PRN Reason: Chest Pain ALPRAZolam 1 MG [Xanax 1 mg] 1 mg PO BID Isosorbide Mononitrate 60 mg [Imdur 60MG] 60 mg PO DAILY Metoprolol Tartrate 25 mg [Lopressor 25MG Tab] 25 mg PO BID Rosuvastatin Calcium 20 mg PO HS Spironolactone 25 mg [Aldactone 25 MG] 12.5 mg PO DAILY Budesonide/Glycopyr/Formoterol [Breztri Aerosphere Inhaler] 2 puffs IH BID Albuterol Sulfate [Proair Digihaler] 2 puffs IH Q6H PRN PRN Reason: sob Pramipexole Di-HCl [Mirapex] 0.25 mg PO HS Furosemide 20 mg [Lasix 20 mg] 20 mg PO DAILY Propylene Glycol/Peg 400 [Lubricating Eye Drop] 1 drop OP QID Latanoprost [Xalatan] 1 ml OP HS Carboxymethylcellulose Sodium [Refresh Liquigel] 1 ml OP HS Theophylline Anhydrous [Theophylline ER 24Hr] 400 mg PO BID #60 Roflumilast [Daliresp] 250 mcg PO DAILY Losartan Potassium 50 mg [Cozaar 50 MG] 50 mg PO DAILY Prednisone 10 mg [Deltasone 10 mg] 10 mg PO DAILY Sacubitril/Valsartan [Entresto 24 mg-26 mg Tablet] 1 tab PO BID Instructions: Exacerbation of COPD (DC) Follow up with: GUILLERMINA WONG FNP [[employer]AFF] - 11/22/23 10:00 am
[2023-11-15 11:17] VITALS: BP 102/56; PULSE 97; RESP 18; TEMP 97.7; O2SAT 90
== END 2023-11-15 13:32 | disposition home or self-care (01) ==
LOC: ED 15:14 → MED SURG 19:22
PROVIDERS: ADMIT Internal Medicine; ATTEND Internal Medicine
DX: J96.10 Chronic respiratory failure, unspecified whether with hypoxia or hypercapnia (principal); J44.1 Chronic obstructive pulmonary disease with (acute) exacerbation; H60.90 Unspecified otitis externa, unspecified ear; I11.0 Hypertensive heart disease with heart failure; I50.9 Heart failure, unspecified; Z99.81 Dependence on supplemental oxygen; F41.9 Anxiety disorder, unspecified; Z79.899 Other long term (current) drug therapy; Z20.828 Contact with and (suspected) exposure to other viral communicable diseases
CPT/HCPCS: 0241U; 36415; 71045; 80053; 82947; 84484; 85025; 85027; 87040; 93005; 93041; 93268; 94640; 94760; 94762; 96365; 96367; 96374; 99285; G0378; Q3014; J0456; J0696; J1650; J2919; J7609; A9270-GY

== ENCOUNTER 2024-01-25 10:10 | Inpatient (IN) | payer MEDICARE, SELFPAY ==
[2024-01-25] MEDS ORDERED: PROVENTIL 2.5 MG/3 ML NEB IH ONE ×2 (10:48→14:48)
[2024-01-25] MEDS: PROVENTIL 2.5 MG/3 ML NEB IH ONE (10:50)
--- NOTE | 2024-01-25 11:02 | XRAY ---
Indication: Productive cough. Comparison: November 13, 2023 Portable chest demonstrates new patchy left lung base interstitial alveolar opacity. Remaining chest unchanged again with COPD, minimal bibasilar subsegmental atelectasis/scarring, and left mid lung suture material. Heart not enlarged. Bony thorax intact with osteopenia.
[2024-01-25 11:04] LABS: Absolute Neutrophil Ct (ANC) 9.34 x10^3/uL (1.78-5.38); BASOPHIL % 0.4 % (0.2-1.2); Basophil (Absolute #) 0.04 x10^3/uL (0.01-0.08); Eosinophil % 0.5 % (0.8-7.0); Eosinophil (Absolute #) 0.05 x10^3/uL (0.04-0.54); Hematocrit 41.8 % (40.1-51.0); Hemoglobin 12.9 g/dL (13.7-17.5); IMMATURE GRAN # 0.03 x10^3u/L (0.001-0.031); IMMATURE GRAN % 0.3 % (0.001-0.429); Lymphocyte (Absolute #) 0.55 x10^3/uL (1.32-3.57); Lymphocytes % 5.2 % (21.8-53.1); Mean Cell Volume 84.1 fL (79.0-92.2); Mean Corpuscular Hgb Concent. 30.9 g/dL (32.3-36.5); Mean Platelet Volume 9.3 fL (9.4-12.4); Monocyte (Absolute #) 0.65 x10^3/uL (0.30-0.82); Monocytes % 6.1 % (5.3-12.2); Neutrophil % 87.5 % (34.0-67.9); Platelet Count 228 x10^3/uL (163-337); Red Blood Count 4.97 x10^6/uL (4.63-6.08); Red Cell Distribution Width 16.2 % (11.6-14.4); White Blood Count 10.7 x10^3/uL (4.23-9.07)
--- NOTE | 2024-01-25 11:08 | ERPHSYRPT ---
- History of Present Illness Time Seen by Provider: 01/25/24 10:25 Source: patient Exam Limitations: no limitations Patient Subjective Stated Complaint: Pt states "I have been having a hard time breathing for the past couple of days. I am also coughing up thick green stuf f." Triage Nursing Assessment: PT presented alert and oriented x 3, skin pwd. Pt ambulates with an upright steady gait, able to speka in clear full seentences. PT tachypneic and has intermittant productive cough. Physician History: This is a 78-year-old white male patient of Dr. Segura who presents to the emergency department by private vehicle with a complaint of worsening shortness of breath and productive cough of green sputum the last couple days. Patient denies chest pain. He does have a registration representative (Dr. 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 Moreno). Patient has frequent episodes of pneumonia and COPD exacerbation. He also has a history of COPD and is oxygen dependent with 4 L nasal cannula at all times, hypertension, CHF, coronary disease and hyperlipidemia. I reviewed the patient's most recent stay in the hospital (11/13/2023 to 11/15/2023). Timing/Duration: day(s) (2) Severity of Dyspnea-Max: moderate Severity of Dyspnea-Current: moderate Possible Cause: frequent episodes, chronic episodes Modifying Factors: Improves With: activity, coughing Associated Symptoms: cough, productive cough (Greenish sputum), No chest pain/discomfort Allergies/Adverse Reactions: nicotine [From Nicoderm CQ] Allergy (Severe, Verified 11/13/23 15:24) Rash Home Medications: Albuterol 2.5 mg/3 ml Neb [Proventil 2.5 mg/3 ml Neb] 1 neb IH Q6H PRN 02/04/14 [History] Aspirin 81 mg PO HS 02/04/14 [History] Omeprazole 20 MG [Prilosec 20 mg] 20 mg PO BIDAC 02/04/14 [History] Nitroglycerin 0.4 mg Tablet [Nitrostat 0.4 MG Tablet] 0.4 mg SL Q5MIN PRN MR X 3 PRN 08/01/16 [History] ALPRAZolam 1 MG [Xanax 1 mg] 1 mg PO BID 10/14/18 [History] Isosorbide Mononitrate 60 mg [Imdur 60MG] 60 mg PO DAILY 06/01/20 [History] Metoprolol Tartrate 25 mg [Lopressor 25MG Tab] 25 mg PO BID 06/01/20 [History] Rosuvastatin Calcium 20 mg PO HS 06/01/20 [History] Spironolactone 25 mg [Aldactone 25 MG] 12.5 mg PO DAILY 01/25/21 [History] Albuterol Sulfate [Proair Digihaler] 2 puffs IH Q6H PRN 03/24/21 [History] Budesonide/Glycopyr/Formoterol [Breztri Aerosphere Inhaler] 2 puffs IH BID 03/24/21 [History] Furosemide 20 mg [Lasix 20 mg] 20 mg PO DAILY 06/12/21 [History] Pramipexole Di-HCl [Mirapex] 0.25 mg PO HS 06/12/21 [History] Carboxymethylcellulose Sodium [Refresh Liquigel] 1 ml OP HS 09/25/21 [History] Latanoprost [Xalatan] 1 ml OP HS 09/25/21 [History] Propylene Glycol/Peg 400 [Lubricating Eye Drop] 1 drop OP QID 09/25/21 [History] Losartan Potassium 50 mg [Cozaar 50 MG] 50 mg PO DAILY 10/06/23 [History] Prednisone 10 mg [Deltasone 10 mg] 10 mg PO DAILY 10/06/23 [History] Roflumilast [Daliresp] 250 mcg PO DAILY 10/06/23 [History] Sacubitril/Valsartan [Entresto 24 mg-26 mg Tablet] 1 tab PO BID 11/13/23 [History] Hx Tetanus, Diphtheria Vaccination/Date Given: No Hx Influenza Vaccination/Date Given: Yes Hx Pneumococcal Vaccination/Date Given: Yes Immunizations Up to Date: No Travel Risk - International Travel Have you traveled outside of the country in past 3 weeks: No - Emerging Infectious Disease Are you exhibiting symptoms associated with any current EIDs: Yes Symptoms: Cough: New Onset, Fever, Shortness of Breath - Review of Systems Constitutional: Fever Eyes: No Symptoms Ears, Nose, & Throat: No Symptoms Respiratory: Cough, Dyspnea Cardiac: No Symptoms Abdominal/Gastrointestinal: No Symptoms Genitourinary Symptoms: No Symptoms Musculoskeletal: No Symptoms Skin: No Symptoms Neurological: No Symptoms Psychological: No Symptoms Endocrine: No Symptoms Hematologic/Lymphatic: No Symptoms Immunological/Allergic: No Symptoms All Other Systems: Reviewed and Negative - Past Medical History Pertinent Past Medical History: Yes Neurological History: No Pertinent History ENT History: No Pertinent History Cardiac History: Aneurysm, Congestive Heart Failure, Hypertension Respiratory History: COPD, Sleep Apnea, Other Endocrine Medical History: Diabetes Type II Musculoskeletal History: No Pertinent History GI Medical History: GERD History: No Pertinent History Psycho-Social History: Anxiety Male Reproductive Disorders: No Pertinent History Other Medical History: 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 PT wears 4L O2 AT ALL TIMES - Past Surgical History Past Surgical History: Yes Neuro Surgical History: No Pertinent History Cardiac: No Pertinent History Respiratory: Other Gastrointestinal: Hernia Repair Genitourinary: No Pertinent History Musculoskeletal: Orthopedic Surgery Male Surgical History: Vasectomy Other Surgical History: BACK SURGERY, and ear surgery and a left lung biopsy. 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, double hernia repair, Significant Family History: no pertinent family hx - Social History Smoking Status: Former smoker How long have you smoked: 13 Exposure to second hand smoke: Yes Drug Use: none Patient Lives Alone: No - Social Determinants of Health Will the patient participate in the screening: Yes Do you worry about a steady place to live?: No Do you have any problems with any of the following?: No known problems In the past 12 months,have you had to go without utilities?: No Transportation Issues: No Has anyone in your support network made you feel unsafe?: No Have you or anyone in your house had to go without enough: No - Nursing Vital Signs Nursing Vital Signs: Initial Vital Signs Temperature 99.8 F 01/25/24 10:11 Pulse Rate 93 H 01/25/24 10:11 Respiratory Rate 28 H 01/25/24 10:11 Blood Pressure 109/67 01/25/24 10:11 O2 Sat by Pulse Oximetry 97 01/25/24 10:11 Pain Scale Pain Intensity 0 - Physical Exam General Appearance: mild distress, alert, anxiety Eye Exam: PERRL/EOMI, eyes nml inspection Ears, Nose, Throat Exam: hearing grossly normal, normal ENT inspection, normal pharynx Neck Exam: normal inspection, non-tender, supple, full range of motion Respiratory Exam: airway intact, rhonchi (Mild bilateral diffuse), No chest tenderness, No respiratory distress Cardiovascular/Chest Exam: normal heart sounds, regular rate/rhythm Abdominal/Gastrointestinal Exam: soft, normal bowel sounds, No tenderness Rectal Exam: not done Extremity Exam: non-tender, normal range of motion, normal inspection, normal capillary refill, no calf tenderness, swelling (Mild bilateral feet and ankle) Neurologic Exam: alert, oriented x 3, cooperative, marine 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 II-XII nml as tested, nml cerebellar function, nml station & gait, sensation nml Skin Exam: normal color, warm, dry Lymphatic Exam: No adenopathy SpO2 Interpretation: borderline oxygenation SpO2: 93 O2 Delivery: Nasal Cannula - Course Nursing assessment & vital signs reviewed: Yes EKG Interpreted by Me: RATE (90), Sinus Rhythm, NORMAL AXIS, NORMAL INTERVALS, Right Bundle Branch Block, Other (No acute ischemic changes on today's twelve- lead EKG.) Ordered Tests: Active Orders 24 hr Category Date Time Status Portrait Photographer STAT Care 01/25/24 10:32 Active EKG-ER Only STAT Care 01/25/24 10:32 Active IV Insertion STAT Care 01/25/24 10:51 Active Pulse Oximetry (ED) STAT Care 01/25/24 10:32 Active CHEST 1 VIEW (PORTABLE) Stat Exams 01/25/24 10:32 Completed BLOOD CULTURE Stat Lab 01/25/24 10:55 Received CBC W DIFF Stat Lab 01/25/24 10:55 Completed CMP Stat Lab 01/25/24 10:55 Completed CULTURE,SPUTUM Stat Lab 01/25/24 10:32 Ordered Lactic Acid Stat Lab 01/25/24 10:56 Completed MAGNESIUM Stat Lab 01/25/24 10:55 Completed NT PRO BNPII Stat Lab 01/25/24 10:55 Completed TROPONIN Q4H Lab 01/25/24 10:55 Completed TROPONIN Q4H Lab 01/25/24 14:45 Ordered TROPONIN Q4H Lab 01/25/24 18:45 Ordered Respiratory Therapy Assessment DAILY RT 01/25/24 10:52 Active Medication Summary Discontinued Medications Generic Name Dose Route Start Last Admin Trade Name Freq PRN Reason Stop Dose Admin Albuterol Sulfate 2.5 mg 01/25/24 10:32 01/25/24 10:50 Albuterol Sulfate 2.5 Mg/3 Ml Neb IH 01/25/24 10:33 2.5 mg STAT ONE Administration Albuterol Sulfate Confirm 01/25/24 10:48 Albuterol Sulfate 2.5 Mg/3 Ml Neb Administered 01/25/24 10:49 Dose 2.5 mg IH .STK-MED ONE Methylprednisolone Sodium 0 mg 01/25/24 11:23 01/25/24 11:44 Succinate 125 mg/ Sterile IV 01/25/24 11:24 125 mg Water 2 ml STAT ONE Administration Ceftriaxone Sodium 1 gm in 100 mls @ 200 mls/hr 01/25/24 11:23 01/25/24 12:33 Rocephin 1 Gm / 100 Ml Nacl IV 01/25/24 11:52 Infused STAT ONE Infusion Ceftriaxone Sodium Confirm 01/25/24 11:43 Rocephin 1 Gm / 100 Ml Nacl Administered 01/25/24 11:44 Dose 1 gm in 100 mls @ ud IV .STK-MED ONE Methylprednisolone Sodium Succinate Confirm 01/25/24 11:43 Methylprednis Sod Succ 125 Mg/2 Ml Vial Administered 01/25/24 11:44 Dose 125 mg .ROUTE .STK-MED ONE Sterile Water Confirm 01/25/24 11:43 Water For Injection,Sterile 10 Ml Vial Administered 01/25/24 11:44 Dose 10 ml IJ .STK-MED ONE Lab/Rad Data: Laboratory Result Diagrams 01/25/24 10:55 01/25/24 10:55 Laboratory Results 01/25/24 01/25/24 01/25/24 Range/Units 11:00 10:56 10:55 WBC (4.23-9.07) x10^3/uL RBC (4.63-6.08) x10^6/uL Hgb (13.7-17.5) g/dL Hct (40.1-51.0) % MCV (79.0-92.2) fL MCH (25.7-32.2) pg MCHC (32.3-36.5) g/dL RDW (11.6-14.4) % Plt Count (163-337) x10^3/uL MPV (9.4-12.4) fL Gran % (34.0-67.9) % Immature Gran % (Auto) (0.001-0.429) % Nucleat RBC Rel Count (0.00-0.2) % Eos # (Auto) (0.04-0.54) x10^3/uL Immature Gran # (Auto) (0.001-0.031) x10^3u/L Absolute Lymphs (auto) (1.32-3.57) x10^3/uL Absolute Monos (auto) (0.30-0.82) x10^3/uL Absolute Nucleated RBC (0.00-0.012) x10^3u/L Lymphocytes % (21.8-53.1) % Monocytes % (5.3-12.2) % Eosinophils % (0.8-7.0) % Basophils % (0.2-1.2) % Absolute Granulocytes (1.78-5.38) x10^3/uL Basophils # (0.01-0.08) x10^3/uL Sodium (135-145) mmol/L Potassium (3.5-5.1) mmol/L Chloride (98-107) mmol/L Carbon Dioxide (22-30) mmol/L Anion Gap (5-15) MEQ/L BUN (9-20) mg/dL Creatinine (0.66-1.25) mg/dL Estimated GFR ML/MIN Glucose (74-106) mg/dL Lactic Acid 1.2 (0.4-2.0) Calcium (8.4-10.2) mg/dL Magnesium (1.6-2.3) mg/dL Total Bilirubin (0.2-1.3) mg/dL AST (17-59) U/L ALT (0-50) U/L Alkaline Phosphatase (38-126) U/L Troponin I < 0.012 (0.000-0.033) ng/mL NT-Pro-B Natriuret Pep (<300) pg/mL Serum Total Protein (6.3-8.2) g/dL Albumin (3.5-5.0) g/dL Influenza Type A Ag NEGATIVE (NEGATIVE) Influenza Type B Ag NEGATIVE (NEGATIVE) RSV (PCR) NEGATIVE (NEGATIVE) SARS-CoV-2 (PCR) NEGATIVE (NEGATIVE) Slides for Path Review 01/25/24 01/25/24 Range/Units 10:55 10:55 WBC 10.7 H (4.23-9.07) x10^3/uL RBC 4.97 (4.63-6.08) x10^6/uL Hgb 12.9 L (13.7-17.5) g/dL Hct 41.8 (40.1-51.0) % MCV 84.1 (79.0-92.2) fL MCH 26.0 (25.7-32.2) pg MCHC 30.9 L (32.3-36.5) g/dL RDW 16.2 H (11.6-14.4) % Plt Count 228 (163-337) x10^3/uL MPV 9.3 L (9.4-12.4) fL Gran % 87.5 H (34.0-67.9) % Immature Gran % (Auto) 0.3 (0.001-0.429) % Nucleat RBC Rel Count 0.0 (0.00-0.2) % Eos # (Auto) 0.05 (0.04-0.54) x10^3/uL Immature Gran # (Auto) 0.03 (0.001-0.031) x10^3u/L Absolute Lymphs (auto) 0.55 L (1.32-3.57) x10^3/uL Absolute Monos (auto) 0.65 (0.30-0.82) x10^3/uL Absolute Nucleated RBC 0.00 (0.00-0.012) x10^3u/L Lymphocytes % 5.2 L (21.8-53.1) % Monocytes % 6.1 (5.3-12.2) % Eosinophils % 0.5 L (0.8-7.0) % Basophils % 0.4 (0.2-1.2) % Absolute Granulocytes 9.34 H (1.78-5.38) x10^3/uL Basophils # 0.04 (0.01-0.08) x10^3/uL Sodium 140 (135-145) mmol/L Potassium 4.2 (3.5-5.1) mmol/L Chloride 100 (98-107) mmol/L Carbon Dioxide 35 H (22-30) mmol/L Anion Gap 8.9 (5-15) MEQ/L BUN 10 (9-20) mg/dL Creatinine 0.62 L (0.66-1.25) mg/dL Estimated GFR 98.4 ML/MIN Glucose 115 H (74-106) mg/dL Lactic Acid (0.4-2.0) Calcium 9.8 (8.4-10.2) mg/dL Magnesium 1.8 (1.6-2.3) mg/dL Total Bilirubin 1.20 (0.2-1.3) mg/dL AST 21 (17-59) U/L ALT 13 (0-50) U/L Alkaline Phosphatase 56 (38-126) U/L Troponin I (0.000-0.033) ng/mL NT-Pro-B Natriuret Pep 629 (<300) pg/mL Serum Total Protein 6.9 (6.3-8.2) g/dL Albumin 4.1 (3.5-5.0) g/dL Influenza Type A Ag (NEGATIVE) Influenza Type B Ag (NEGATIVE) RSV (PCR) (NEGATIVE) SARS-CoV-2 (PCR) (NEGATIVE) Slides for Path Review YES - Progress Progress: improved, re-examined Air Movement: fair Progress Note: 01/25/24 11:11 My medical decision making and the assignment of moderate to high complexity of this patient's medical issue today is based on review of the patient's past me dical history, review of the patient's most recent inpatient hospital stay, review of the patient's medication list, review of patient drug allergy list, history present illness and physical findings on examination. The workup in this patient includes placement of intravenous line, twelve-lead EKG, chest x- ray, BNP, D-dimer level, troponin level, CBC, CMP, magnesium level, lactic acid level and evaluation/treatment by respiratory therapy. Differential diagnosis includes but is not limited to pulmonary embolism, pneumonia, abnormal heart rhythm, electrolyte abnormalities, myocardial infarction, CHF exacerbation, COPD exacerbation 01/25/24 12:23 I interpreted the patient's laboratory data results. The viral swabs are pending. The chest x-ray was interpreted by the radiologist and I reviewed the impression. The impression states new patchy left lung base interstitial alveolar opacity. There are chronic COPD changes. 01/25/24 13:05 I interpreted the patient's viral swab results. They are all negative. I spoke with Dr. Phelps, the telehospitalist on at this time. I reviewed the patient history, presenting complaint, workup results and the response of the patient to our workup and management. We agreed the patient should be placed in observation and provided intravenous antibiotics, respiratory therapy evaluation management. Blood Culture(s) Obtained: Yes Antibiotics given: Yes Counseled pt/family regarding: lab results, diagnosis, rad results Medical Desision Making - Independent Historian Additional History obtained from: Spouse - Diagnostic Testing Diagnostic test were ordered, analyzed, and reviewed by me: Yes Radiological Interpretation: Reviewed by me, Teleradiologist Report - Risk of complications The pt has a high risk of morbidity or mortality based on: Decision regarding hospitilization or escalation of hosp level of care - Departure Departure Disposition: Home Clinical Impression: Hypoxia, Left pulmonary infiltrate on CXR, COPD exacerbation Condition: Stable Critical Care Time: No Referrals: FARHAT SEGURA DO [Primary Care Provider] - Follow up/PCP as directed Instructions: Chronic Obstructive Pulmonary Disease
[2024-01-25 11:27] LABS: ALBUMIN 4.1 g/dL (3.5-5.0); ANION GAP 8.9 MEQ/L (5-15); BILIRUBIN,TOTAL 1.2 mg/dL (0.2-1.3); Calcium 9.8 mg/dL (8.4-10.2); Creatinine 1 0.62 mg/dL (0.66-1.25); EST GLOMERULAR FILTRATION RATE 98.4 ML/MIN; MAGNESIUM 1.8 mg/dL (1.6-2.3); Potassium 4.2 mmol/L (3.5-5.1); Total Protein 6.9 g/dL (6.3-8.2)
[2024-01-25] MEDS ORDERED: Sterile H2O 10 ml IJ ONE ×2 (11:43→21:28)
[2024-01-25] MEDS ORDERED: ROCEPHIN 1 GM / 100 ML NaCl 1 GM/100 ML IVPB IV ONE (11:43)
[2024-01-25] MEDS ORDERED: solu-MEDROL ONE (11:43)
[2024-01-25] MEDS: solu-MEDROL 125 MG, Sterile H2O 10 ml 2 ML IV ONE (11:44)
[2024-01-25 11:45] LABS: INFLUENZA A NEGATIVE (NEGATIVE); INFLUENZA B NEGATIVE (NEGATIVE); RESPIRATORY SYNCTIAL VIRUS NEGATIVE (NEGATIVE); SARS-CoV-2 Xpert Express NEGATIVE (NEGATIVE)
[2024-01-25] MEDS: ROCEPHIN 1 GM / 100 ML NaCl 1 GM/100 ML IVPB IV ONE (11:47)
[2024-01-25 12:43] LABS: Slide Review 1 YES
[2024-01-25] MEDS ORDERED: TYLENOL 325 MG PO PRN (13:28)
[2024-01-25] MEDS ORDERED: Zofran 4 MG/2 ML VIAL IV PRN (13:28)
--- NOTE | 2024-01-25 13:53 | PCM.HP ---
<LUCA LEYVA - Last Filed: 01/25/24 14:15> History of Present Illness - Chief Complaint Chief Complaint: dyspnea/cough Date: 01/25/24 History of Present Illness: Mr. Vance is a 78 year old male with a pmhx of chronic respiratory failure seco ndary to COPD on 4 L oxygen, coronary artery disease, congestive heart failure, hypertension, HLD, who presented to ED 01/25/24 with complaints of progressive dyspnea and productive cough with green sputum. Onset of symptoms was about a week ago. Endorses subjective fever/chills, increased shortness of breath, and a cough with moderate green sputum. Patient does have COPD and is on 4L at baseline. Currently he is on 5L. He has had multiple admissions for COPD exacerbation, most recently 11/13/23 - 11/15/23. Patient states that he has had increased shortness of breath since his last admission, especially as the temperature has been rising. He is unable to perform ADL's without moderate - severe dyspnea. Denies cp, abdominal pain, GONSALES, dizziness, N/V/D. In ED, patient tachypneic on arrival. CXR demonstrates new patchy left lung base interstitial alveolar opacity. Lab findings remarkable for mild leukocytosis with WBC at 10.7, normocytic anemia with hgb at 12.9, and Co2 at 35. Respiratory panel negative. Patient received Ceftriaxone/solu-medrol/proventil in ED. Admit for acute respiratory failure with hypoxia secondary to COPD exacerbation and pneumonia. Plan to continue ceftriaxone/azithromycin/steroids. The entirety of this encounter was performed via Telemedicine" This visit was performed using real-time audio and video connection between my location and thepatients locationwith the assistance of a surrogateat the patients location. Written or verbal consent was obtained from the patient/guardian to [facility]. Any patient questions regarding the telemedicine interaction were answered. - Review of Systems Constitutional: Fever, Chills, Weakness Eyes: No Symptoms Ears, Nose, & Throat: No Symptoms Respiratory: Cough, Short Of Breath, Wheezing Cardiac: No Symptoms Abdominal/Gastrointestinal: No Symptoms Genitourinary Symptoms: No Symptoms Musculoskeletal: No Symptoms Skin: No Symptoms Neurological: No Symptoms Psychological: No Symptoms Endocrine: No Symptoms Hematologic/Lymphatic: No Symptoms Immunological/Allergic: No Symptoms Medications & Allergies Home Medications: Home Medication List Albuterol 2.5 mg/3 ml Neb [Proventil 2.5 mg/3 ml Neb] 1 neb IH Q6H PRN 02/04/14 [History Confirmed 01/25/24] Aspirin 81 mg PO HS 02/04/14 [History Confirmed 01/25/24] Omeprazole 20 MG [Prilosec 20 mg] 20 mg PO BIDAC 02/04/14 [History Confirmed 01/25/24] Nitroglycerin 0.4 mg Tablet [Nitrostat 0.4 MG Tablet] 0.4 mg SL Q5MIN PRN MR X 3 PRN 08/01/16 [History Confirmed 01/25/24] ALPRAZolam 1 MG [Xanax 1 mg] 1 mg PO BID 10/14/18 [History Confirmed 01/25/24] Isosorbide Mononitrate 60 mg [Imdur 60MG] 60 mg PO DAILY 06/01/20 [History Confirmed 01/25/24] Metoprolol Tartrate 25 mg [Lopressor 25MG Tab] 25 mg PO BID 06/01/20 [History Confirmed 01/25/24] Rosuvastatin Calcium 20 mg PO HS 06/01/20 [History Confirmed 01/25/24] Spironolactone 25 mg [Aldactone 25 MG] 12.5 mg PO DAILY 01/25/21 [History Confirmed 01/25/24] Albuterol Sulfate [Proair Digihaler] 2 puffs IH Q6H PRN 03/24/21 [History Confirmed 01/25/24] Budesonide/Glycopyr/Formoterol [Breztri Aerosphere Inhaler] 2 puffs IH BID 03/24/21 [History Confirmed 01/25/24] Furosemide 20 mg [Lasix 20 mg] 20 mg PO DAILY 06/12/21 [History Confirmed 01/25/24] Carboxymethylcellulose Sodium [Refresh Liquigel] 1 ml OP HS 09/25/21 [History Confirmed 01/25/24] Latanoprost [Xalatan] 1 ml OP HS 09/25/21 [History Confirmed 01/25/24] Theophylline Anhydrous [Theophylline ER 24Hr] 400 mg PO BID #60 11/20/21 [Rx Confirmed 01/25/24] Losartan Potassium 50 mg [Cozaar 50 MG] 50 mg PO DAILY 10/06/23 [History Confirmed 01/25/24] Sacubitril/Valsartan [Entresto 24 mg-26 mg Tablet] 1 tab PO BID 11/13/23 [History Confirmed 01/25/24] Allergies/Adverse Reactions: Allergies Allergy/AdvReac Type Severity Reaction Status Date / [facility] All[facility] Severe Rash Verified 11/13/23 15:24 - Past Medical History Past Medical History: Yes Neurological History: No Pertinent History ENT History: No Pertinent History Cardiac History: Aneurysm, Congestive Heart Failure, Hypertension Respiratory History: COPD, Sleep Apnea, Other Endocrine Medical History: Diabetes Type II Musculoskelatal History: No Pertinent History GI Medical History: GERD History: No Pertinent History Pyscho-Social History: Anxiety Male Reproductive Disorders: No Pertinent History Comment: 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 PT wears 4L O2 AT ALL TIMES - Past Surgical History Past Surgical History: Yes Neuro Surgical History: No Pertinent History Cardiac History: No Pertinent History Respiratory Surgery: Other GI Surgical History: Hernia Repair Genitourinary Surgical Hx: No Pertinent History Musculskeletal Surgical Hx: Orthopedic Surgery Male Surgical History: Vasectomy Other Surgical History: BACK SURGERY, and ear surgery and a left lung biopsy. 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, double hernia repair, Significant Family History: no pertinent family hx - Social History Smoking Status: Former smoker How long have you smoked: 13 Exposure to second hand smoke: Yes Alcohol: None Drug Use: none - Social Determinants of Health Will the patient participate in the screening: Yes Do you worry about a steady place to live?: No Do you have any problems with any of the following?: No known problems In the past 12 months,have you had to go without utilities?: No Have you or anyone in your house had to go without enough: No Transportation Issues: No Has anyone in your support network made you feel unsafe?: No Does the patient want assistance with any of the above?: No - Physical Exam Vital Signs: Vital Signs - 24 hr Temp Pulse Resp BP BP Pulse Ox 01/25/24 13:28 92 L 01/25/24 13:09 93 L 01/25/24 12:45 89 37 H 121/70 93 L 01/25/24 12:30 87 37 H 120/69 01/25/24 12:15 88 38 H 121/70 94 L 01/25/24 12:00 89 34 H 124/73 95 01/25/24 11:45 90 29 H 121/74 95 01/25/24 11:30 91 H 33 H 112/77 01/25/24 11:22 26 H 127/73 96 01/25/24 11:20 87 24 127/73 96 01/25/24 11:10 24 96 01/25/24 11:03 85 29 H 97 01/25/24 10:53 88 26 H 93 L 01/25/24 10:52 94 L 01/25/24 10:46 86 32 H 124/70 89 L 01/25/24 10:30 86 18 111/66 01/25/24 10:15 89 27 H 107/76 01/25/24 10:11 99.8 F 93 H 28 H 109/67 97 General Appearance: no apparent distress Neurologic Exam: alert, oriented x 3, cooperative Eye Exam: PERRL/EOMI Ears, Nose, Throat Exam: normal ENT inspection Neck Exam: normal inspection Respiratory Exam: diminished breath sounds, crackles/rales, wheezing Cardiovascular Exam: normal heart sounds, tachycardia Gastrointestinal/Abdomen Exam: soft, normal bowel sounds Rectal Exam: deferred Back Exam: normal inspection Extremity Exam: normal inspection Skin Exam: normal color Results - Labs Lab/Micro Results: Lab Results-Last 24 Hours 01/25/24 01/25/24 01/25/24 Range/Units 10:55 10:55 10:55 WBC 10.7 H (4.23-9.07) x10^3/uL RBC 4.97 (4.63-6.08) x10^6/uL Hgb 12.9 L (13.7-17.5) g/dL Hct 41.8 (40.1-51.0) % MCV 84.1 (79.0-92.2) fL MCH 26.0 (25.7-32.2) pg MCHC 30.9 L (32.3-36.5) g/dL RDW 16.2 H (11.6-14.4) % Plt Count 228 (163-337) x10^3/uL MPV 9.3 L (9.4-12.4) fL Gran % 87.5 H (34.0-67.9) % Immature Gran % (Auto) 0.3 (0.001-0.429) % Nucleat RBC Rel Count 0.0 (0.00-0.2) % Eos # (Auto) 0.05 (0.04-0.54) x10^3/uL Immature Gran # (Auto) 0.03 (0.001-0.031) x10^3u/L Absolute Lymphs (auto) 0.55 L (1.32-3.57) x10^3/uL Absolute Monos (auto) 0.65 (0.30-0.82) x10^3/uL Absolute Nucleated RBC 0.00 (0.00-0.012) x10^3u/L Lymphocytes % 5.2 L (21.8-53.1) % Monocytes % 6.1 (5.3-12.2) % Eosinophils % 0.5 L (0.8-7.0) % Basophils % 0.4 (0.2-1.2) % Absolute Granulocytes 9.34 H (1.78-5.38) x10^3/uL Basophils # 0.04 (0.01-0.08) x10^3/uL Sodium 140 (135-145) mmol/L Potassium 4.2 (3.5-5.1) mmol/L Chloride 100 (98-107) mmol/L Carbon Dioxide 35 H (22-30) mmol/L Anion Gap 8.9 (5-15) MEQ/L BUN 10 (9-20) mg/dL Creatinine 0.62 L (0.66-1.25) mg/dL Estimated GFR 98.4 ML/MIN Glucose 115 H (74-106) mg/dL Lactic Acid (0.4-2.0) Calcium 9.8 (8.4-10.2) mg/dL Magnesium 1.8 (1.6-2.3) mg/dL Total Bilirubin 1.20 (0.2-1.3) mg/dL AST 21 (17-59) U/L ALT 13 (0-50) U/L Alkaline Phosphatase 56 (38-126) U/L Troponin I < 0.012 (0.000-0.033) ng/mL NT-Pro-B Natriuret Pep 629 (<300) pg/mL Serum Total Protein 6.9 (6.3-8.2) g/dL Albumin 4.1 (3.5-5.0) g/dL Influenza Type A Ag (NEGATIVE) Influenza Type B Ag (NEGATIVE) RSV (PCR) (NEGATIVE) SARS-CoV-2 (PCR) (NEGATIVE) Slides for Path Review YES 01/25/24 01/25/24 Range/Units 10:56 11:00 WBC (4.23-9.07) x10^3/uL RBC (4.63-6.08) x10^6/uL Hgb (13.7-17.5) g/dL Hct (40.1-51.0) % MCV (79.0-92.2) fL MCH (25.7-32.2) pg MCHC (32.3-36.5) g/dL RDW (11.6-14.4) % Plt Count (163-337) x10^3/uL MPV (9.4-12.4) fL Gran % (34.0-67.9) % Immature Gran % (Auto) (0.001-0.429) % Nucleat RBC Rel Count (0.00-0.2) % Eos # (Auto) (0.04-0.54) x10^3/uL Immature Gran # (Auto) (0.001-0.031) x10^3u/L Absolute Lymphs (auto) (1.32-3.57) x10^3/uL Absolute Monos (auto) (0.30-0.82) x10^3/uL Absolute Nucleated RBC (0.00-0.012) x10^3u/L Lymphocytes % (21.8-53.1) % Monocytes % (5.3-12.2) % Eosinophils % (0.8-7.0) % Basophils % (0.2-1.2) % Absolute Granulocytes (1.78-5.38) x10^3/uL Basophils # (0.01-0.08) x10^3/uL Sodium (135-145) mmol/L Potassium (3.5-5.1) mmol/L Chloride (98-107) mmol/L Carbon Dioxide (22-30) mmol/L Anion Gap (5-15) MEQ/L BUN (9-20) mg/dL Creatinine (0.66-1.25) mg/dL Estimated GFR ML/MIN Glucose (74-106) mg/dL Lactic Acid 1.2 (0.4-2.0) Calcium (8.4-10.2) mg/dL Magnesium (1.6-2.3) mg/dL Total Bilirubin (0.2-1.3) mg/dL AST (17-59) U/L ALT (0-50) U/L Alkaline Phosphatase (38-126) U/L Troponin I (0.000-0.033) ng/mL NT-Pro-B Natriuret Pep (<300) pg/mL Serum Total Protein (6.3-8.2) g/dL Albumin (3.5-5.0) g/dL Influenza Type A Ag NEGATIVE (NEGATIVE) Influenza Type B Ag NEGATIVE (NEGATIVE) RSV (PCR) NEGATIVE (NEGATIVE) SARS-CoV-2 (PCR) NEGATIVE (NEGATIVE) Slides for Path Review - Radiology Impressions Radiology Exams & Impressions: Radiology Procedures Category Date Time Status CHEST 1 VIEW (PORTABLE) Stat Exams 01/25/24 10:32 Completed - Other Procedures and Tests Respiratory Therapy 01/25/24 13:28 EKG REPEAT IN AM Respiratory Therapy Consult ONCE Assessment/Plan (1) Acute respiratory failure with hypoxia Current Visit: Yes Status: Acute Assessment & Plan: -2/2 to copd exacerbation/pneumonia -CXR demonstrates new patchy left lung base interstitial alveolar opacity -RT eval -Continue ceftriaxone/azith/solu-medrol/Nebs/INH -IS -supplemental oxygen with goal spo2 > 88-92% - baseline 4L - on 5L currently -ABG prn if significant hypoxia/lethargic Code(s): J96.01 - ACUTE RESPIRATORY FAILURE WITH HYPOXIA (2) Pneumonia Current Visit: Yes Status: Acute Assessment & Plan: -CXR consistent with pneumonia in left lung base -Ceftriaxone started in ED, will continue -add azithromycin -Respiratory viral panel negative -Blood and sputum culture pending Code(s): J18.9 - PNEUMONIA, UNSPECIFIED ORGANISM (3) COPD exacerbation Current Visit: Yes Status: Acute Assessment & Plan: -Most likely secondary to pneumonia -supplemental oxygen with spo2 goal 88-92% - 4L baseline -DuoNebs PRN -CXR reviewed, as stated above -respiratory panel negative -Solumedrol 40mg Q8H -Ceftriaxone/azith -consider CT chest/pulm consult if no improvement Code(s): J44.1 - CHRONIC OBSTRUCTIVE PULMONARY DISEASE W (ACUTE) EXACERBATION (4) CHF (congestive heart failure) Current Visit: Yes Status: Acute Assessment & Plan: -Echo from 01/01/23 -IMPRESSION: EF 60% 1) MILD TO MODERATE CONCENTRIC LEFT VENTRICULAR HYPERTROPHY. 2) NORMAL LEFT VENTRICULAR SYSTOLIC FUNCTION. 3) CALCIFIC AORTIC SCLEROSIS WITHOUT EVIDENCE OF ANY STENOSIS. 4) DIASTOLIC DYSFUNCTION PRESENTED WITH REVERSE MITRAL INFLOW E:A RATIO. 5) TRACE MITRAL REGURGITATION. 6) TRACE TRICUSPID REGURGITATION. 7) MILD PULMONIC INSUFFICIENCY. -BNP 629 -continue home meds -trops negative -Continue home meds/ entresto -Daily weights/ elevate HOB/Strict I&O -Optimize electrolytes with goal K>4, Mg>2 Code(s): I50.9 - HEART FAILURE, UNSPECIFIED (5) HTN (hypertension) Current Visit: Yes Status: Acute Assessment & Plan: -Stable, continue home meds Code(s): I10 - ESSENTIAL (PRIMARY) HYPERTENSION (6) CAD (coronary artery disease) Current Visit: Yes Status: Acute Assessment & Plan: -continue home meds Code(s): I25.10 - ATHSCL HEART DISEASE OF [place] CORONARY ARTERY W/O ANG PCTRS (7) Anxiety Current Visit: Yes Status: Acute Assessment & Plan: -continue home meds Code(s): F41.9 - ANXIETY DISORDER, UNSPECIFIED (8) HLD (hyperlipidemia) Current Visit: Yes Status: Acute Assessment & Plan: -continue home meds VTE: Lovenox PPI: protonix Dispo: 1-2 days Code status: Full code Code(s): E78.5 - HYPERLIPIDEMIA, UNSPECIFIED Telemedicine Encounter - Telemedicine Encounter Telemedicine Encounter: The entirety of this encounter was performed via Telemedicine" <NINI MARSH - Last Filed: 01/25/24 21:45> History of Present Illness - Chief Complaint History of Present Illness: is a 78 year old male. - Physical Exam Vital Signs: Vital Signs - 24 hr Temp Pulse Resp BP BP Pulse Ox 01/25/24 20:00 97.5 F 92 H 18 104/59 99 01/25/24 18:35 101 H 24 97 01/25/24 16:58 91 L 01/25/24 16:55 87 L 01/25/24 16:00 98.6 F 115 H 24 99/54 85 L 01/25/24 13:36 97.5 F 101 H 32 H 132/80 92 L 01/25/24 13:28 98 H 32 H 92 L 01/25/24 13:09 93 L 01/25/24 12:45 89 37 H 121/70 93 L 01/25/24 12:30 87 37 H 120/69 01/25/24 12:15 88 38 H 121/70 94 L 01/25/24 12:00 89 34 H 124/73 95 01/25/24 11:45 90 29 H 121/74 95 01/25/24 11:30 91 H 33 H 112/77 01/25/24 11:22 26 H 127/73 96 01/25/24 11:20 87 24 127/73 96 01/25/24 11:10 24 96 01/25/24 11:03 85 29 H 97 01/25/24 10:53 88 26 H 93 L 01/25/24 10:52 94 L 01/25/24 10:46 86 32 H 124/70 89 L 01/25/24 10:30 86 18 111/66 01/25/24 10:15 89 27 H 107/76 01/25/24 10:11 99.8 F 93 H 28 H 109/67 97 Results - Labs Lab/Micro Results: Lab Results-Last 24 Hours 01/25/24 01/25/24 01/25/24 Range/Units 10:55 10:55 10:55 WBC 10.7 H (4.23-9.07) x10^3/uL RBC 4.97 (4.63-6.08) x10^6/uL Hgb 12.9 L (13.7-17.5) g/dL Hct 41.8 (40.1-51.0) % MCV 84.1 (79.0-92.2) fL MCH 26.0 (25.7-32.2) pg MCHC 30.9 L (32.3-36.5) g/dL RDW 16.2 H (11.6-14.4) % Plt Count 228 (163-337) x10^3/uL MPV 9.3 L (9.4-12.4) fL Gran % 87.5 H (34.0-67.9) % Immature Gran % (Auto) 0.3 (0.001-0.429) % Nucleat RBC Rel Count 0.0 (0.00-0.2) % Eos # (Auto) 0.05 (0.04-0.54) x10^3/uL Immature Gran # (Auto) 0.03 (0.001-0.031) x10^3u/L Absolute Lymphs (auto) 0.55 L (1.32-3.57) x10^3/uL Absolute Monos (auto) 0.65 (0.30-0.82) x10^3/uL Absolute Nucleated RBC 0.00 (0.00-0.012) x10^3u/L Lymphocytes % 5.2 L (21.8-53.1) % Monocytes % 6.1 (5.3-12.2) % Eosinophils % 0.5 L (0.8-7.0) % Basophils % 0.4 (0.2-1.2) % Absolute Granulocytes 9.34 H (1.78-5.38) x10^3/uL Basophils # 0.04 (0.01-0.08) x10^3/uL Sodium 140 (135-145) mmol/L Potassium 4.2 (3.5-5.1) mmol/L Chloride 100 (98-107) mmol/L Carbon Dioxide 35 H (22-30) mmol/L Anion Gap 8.9 (5-15) MEQ/L BUN 10 (9-20) mg/dL Creatinine 0.62 L (0.66-1.25) mg/dL Estimated GFR 98.4 ML/MIN Glucose 115 H (74-106) mg/dL POC Glucometer (74 to 106) mg/dL Lactic Acid (0.4-2.0) Calcium 9.8 (8.4-10.2) mg/dL Magnesium 1.8 (1.6-2.3) mg/dL Total Bilirubin 1.20 (0.2-1.3) mg/dL AST 21 (17-59) U/L ALT 13 (0-50) U/L Alkaline Phosphatase 56 (38-126) U/L Troponin I < 0.012 (0.000-0.033) ng/mL NT-Pro-B Natriuret Pep 629 (<300) pg/mL Serum Total Protein 6.9 (6.3-8.2) g/dL Albumin 4.1 (3.5-5.0) g/dL Influenza Type A Ag (NEGATIVE) Influenza Type B Ag (NEGATIVE) RSV (PCR) (NEGATIVE) SARS-CoV-2 (PCR) (NEGATIVE) Slides for Path Review YES 01/25/24 01/25/24 01/25/24 Range/Units 10:56 11:00 14:58 WBC (4.23-9.07) x10^3/uL RBC (4.63-6.08) x10^6/uL Hgb (13.7-17.5) g/dL Hct (40.1-51.0) % MCV (79.0-92.2) fL MCH (25.7-32.2) pg MCHC (32.3-36.5) g/dL RDW (11.6-14.4) % Plt Count (163-337) x10^3/uL MPV (9.4-12.4) fL Gran % (34.0-67.9) % Immature Gran % (Auto) (0.001-0.429) % Nucleat RBC Rel Count (0.00-0.2) % Eos # (Auto) (0.04-0.54) x10^3/uL Immature Gran # (Auto) (0.001-0.031) x10^3u/L Absolute Lymphs (auto) (1.32-3.57) x10^3/uL Absolute Monos (auto) (0.30-0.82) x10^3/uL Absolute Nucleated RBC (0.00-0.012) x10^3u/L Lymphocytes % (21.8-53.1) % Monocytes % (5.3-12.2) % Eosinophils % (0.8-7.0) % Basophils % (0.2-1.2) % Absolute Granulocytes (1.78-5.38) x10^3/uL Basophils # (0.01-0.08) x10^3/uL Sodium (135-145) mmol/L Potassium (3.5-5.1) mmol/L Chloride (98-107) mmol/L Carbon Dioxide (22-30) mmol/L Anion Gap (5-15) MEQ/L BUN (9-20) mg/dL Creatinine (0.66-1.25) mg/dL Estimated GFR ML/MIN Glucose (74-106) mg/dL POC Glucometer (74 to 106) mg/dL Lactic Acid 1.2 (0.4-2.0) Calcium (8.4-10.2) mg/dL Magnesium (1.6-2.3) mg/dL Total Bilirubin (0.2-1.3) mg/dL AST (17-59) U/L ALT (0-50) U/L Alkaline Phosphatase (38-126) U/L Troponin I < 0.012 (0.000-0.033) ng/mL NT-Pro-B Natriuret Pep (<300) pg/mL Serum Total Protein (6.3-8.2) g/dL Albumin (3.5-5.0) g/dL Influenza Type A Ag NEGATIVE (NEGATIVE) Influenza Type B Ag NEGATIVE (NEGATIVE) RSV (PCR) NEGATIVE (NEGATIVE) SARS-CoV-2 (PCR) NEGATIVE (NEGATIVE) Slides for Path Review 01/25/24 01/25/24 Range/Units 16:11 18:49 WBC (4.23-9.07) x10^3/uL RBC (4.63-6.08) x10^6/uL Hgb (13.7-17.5) g/dL Hct (40.1-51.0) % MCV (79.0-92.2) fL MCH (25.7-32.2) pg MCHC (32.3-36.5) g/dL RDW (11.6-14.4) % Plt Count (163-337) x10^3/uL MPV (9.4-12.4) fL Gran % (34.0-67.9) % Immature Gran % (Auto) (0.001-0.429) % Nucleat RBC Rel Count (0.00-0.2) % Eos # (Auto) (0.04-0.54) x10^3/uL Immature Gran # (Auto) (0.001-0.031) x10^3u/L Absolute Lymphs (auto) (1.32-3.57) x10^3/uL Absolute Monos (auto) (0.30-0.82) x10^3/uL Absolute Nucleated RBC (0.00-0.012) x10^3u/L Lymphocytes % (21.8-53.1) % Monocytes % (5.3-12.2) % Eosinophils % (0.8-7.0) % Basophils % (0.2-1.2) % Absolute Granulocytes (1.78-5.38) x10^3/uL Basophils # (0.01-0.08) x10^3/uL Sodium (135-145) mmol/L Potassium (3.5-5.1) mmol/L Chloride (98-107) mmol/L Carbon Dioxide (22-30) mmol/L Anion Gap (5-15) MEQ/L BUN (9-20) mg/dL Creatinine (0.66-1.25) mg/dL Estimated GFR ML/MIN Glucose (74-106) mg/dL POC Glucometer 176 H (74 to 106) mg/dL Lactic Acid (0.4-2.0) Calcium (8.4-10.2) mg/dL Magnesium (1.6-2.3) mg/dL Total Bilirubin (0.2-1.3) mg/dL AST (17-59) U/L ALT (0-50) U/L Alkaline Phosphatase (38-126) U/L Troponin I < 0.012 (0.000-0.033) ng/mL NT-Pro-B Natriuret Pep (<300) pg/mL Serum Total Protein (6.3-8.2) g/dL Albumin (3.5-5.0) g/dL Influenza Type A Ag (NEGATIVE) Influenza Type B Ag (NEGATIVE) RSV (PCR) (NEGATIVE) SARS-CoV-2 (PCR) (NEGATIVE) Slides for Path Review Microbiology 01/25/24 10:32 Gram Stain - Final Sputum - Expectorant Accuchecks Date 01/25/24 Time 16:20 - Radiology Impressions Radiology Exams & Impressions: Radiology Procedures Category Date Time Status CHEST 1 VIEW (PORTABLE) Stat Exams 01/25/24 10:32 Completed ECHO W/2D AND DOPPLER [US] Routine Exams 01/25/24 14:29 Taken - Other Procedures and Tests Respiratory Therapy 01/25/24 10:52 Respiratory Therapy Assessment DAILY 01/25/24 13:28 EKG REPEAT IN AM 01/25/24 14:59 Oxygen Nasal Cannula 4 lpm 01/25/24 15:01 BiPap/CPAP ROUTINE Telemedicine Encounter - Telemedicine Encounter Telemedicine Encounter: The entirety of this encounter was performed via Telemedicine" LISY Encounter - LISY Encounter Attestation LISY Encounter Attestation: "EDVIN Whyte andhavediscussed pertinent aspects of their care with Luca Chang agree with the history, physical exam (any modifications based on my personal exam will be noted below), assessment, and plan as outlined in original note. Please see immediately below for my summary of findings and additional assessment and plan along with any meaningful corrections/explanations to the Subjective/Objective portions of the LISY note will be noted." My portion of the encounter took place via telemedicine. -Hypoxia secondary to COPD exacerbation and pneumonia. Change antibiotic to zosyn from ceftriaxone given h/o COPD and risk for pseudomonas.
[2024-01-25] MEDS ORDERED: Spiriva 18 Mcg/Cap Inhaler IH ONE (15:15)
[2024-01-25] MEDS: PROVENTIL 2.5 MG/3 ML NEB IH SCH (15:21)
[2024-01-25] MEDS: PROTONIX 40 MG IV IV SCH (15:32)
[2024-01-25] MEDS: ENOXAPARIN SODIUM SQ SCH (15:32)
[2024-01-25] MEDS ORDERED: Nitrostat 0.4 MG Tablet SL PRN (15:39)
[2024-01-25] MEDS ORDERED: VENTOLIN COMMON CANISTER IH PRN (15:52)
[2024-01-25] MEDS: Zithromax 500 MG/ 250 ML NaCl Premix 500 MG/250 ML IVPB IV SCH (15:56)
[2024-01-25] MEDS: Advair Hfa 115/21 Common canister IH SCH (17:01)
[2024-01-25] MEDS ORDERED: PIPERACILLIN/TAZOBACTAM IV ONE ×3 (18:17→23:33)
[2024-01-25] MEDS ORDERED: Sodium Chloride 100ML MINI-BAG PLUS 100 ML IV ONE ×2 (18:20→23:33)
[2024-01-25] MEDS: PIPERACILLIN/TAZOBACTAM 3.375 GM in Sodium Chloride 100ML MINI-BAG PLUS 100 ML IV SCH (18:22)
[2024-01-25] MEDS: Artificial Tears 15 ML OP SCH (21:31)
[2024-01-25] MEDS: ENTRESTO 49 MG-51 MG TABLET PO SCH (21:32)
[2024-01-25] MEDS: ECOTRIN 81 MG PO SCH (21:32)
[2024-01-25] MEDS: XANAX 1 MG PO SCH (21:32)
[2024-01-25] MEDS: Lopressor 25MG Tab PO SCH (21:32)
[2024-01-25] MEDS: ZOCOR 20MG PO SCH (21:32)
[2024-01-25] MEDS: solu-MEDROL IV SCH ×2 (21:33→21:45)
[2024-01-25] MEDS: THEOPHYLLINE ER 24HR PO SCH (21:33)
[2024-01-25] MEDS: Xalatan OP SCH (21:34)
[2024-01-25] MEDS ORDERED: NON-FORMULARY ITEM (Budesonide/Glycopyr/Formoterol [Breztri Aerosphere Inhaler] 10.7 GM Hf IH SCH (22:00)
[2024-01-25] MEDS ORDERED: solu-MEDROL 40 MG, Sterile H2O 10 ml 1 ML IV SCH (22:00)
[2024-01-25] MEDS ORDERED: solu-MEDROL 60 MG, Sterile H2O 10 ml 1 ML IV SCH (22:00)
[2024-01-26 05:55] LABS: Absolute Neutrophil Ct (ANC) 8.68 x10^3/uL (1.78-5.38); BASOPHIL % 0.1 % (0.2-1.2); Basophil (Absolute #) 0.01 x10^3/uL (0.01-0.08); Eosinophil (Absolute #) 0 x10^3/uL (0.04-0.54); Hematocrit 40.6 % (40.1-51.0); Hemoglobin 12.1 g/dL (13.7-17.5); IMMATURE GRAN # 0.03 x10^3u/L (0.001-0.031); IMMATURE GRAN % 0.3 % (0.001-0.429); Lymphocytes % 4.3 % (21.8-53.1); Mean Cell Volume 85.7 fL (79.0-92.2); Mean Corpuscular Hemoglobin 25.5 pg (25.7-32.2); Mean Corpuscular Hgb Concent. 29.8 g/dL (32.3-36.5); Mean Platelet Volume 9.8 fL (9.4-12.4); Monocyte (Absolute #) 0.11 x10^3/uL (0.30-0.82); Monocytes % 1.2 % (5.3-12.2); Neutrophil % 94.1 % (34.0-67.9); Platelet Count 226 x10^3/uL (163-337); Red Blood Count 4.74 x10^6/uL (4.63-6.08); Red Cell Distribution Width 16.4 % (11.6-14.4); White Blood Count 9.2 x10^3/uL (4.23-9.07)
[2024-01-26] MEDS ORDERED: PIPERACILLIN/TAZOBACTAM IV ONE (06:05)
[2024-01-26] MEDS ORDERED: Sterile H2O 10 ml IJ ONE ×2 (06:05→15:02)
[2024-01-26] MEDS ORDERED: Sodium Chloride 100ML MINI-BAG PLUS 100 ML IV ONE (06:07)
[2024-01-26 06:23] LABS: ALBUMIN 3.6 g/dL (3.5-5.0); ANION GAP 9.5 MEQ/L (5-15); BILIRUBIN,TOTAL 0.8 mg/dL (0.2-1.3); Calcium 9.3 mg/dL (8.4-10.2); Creatinine 1 0.57 mg/dL (0.66-1.25); Potassium 4.5 mmol/L (3.5-5.1); Total Protein 6.2 g/dL (6.3-8.2)
[2024-01-26] MEDS: Spiriva 18 Mcg/Cap Inhaler IH SCH (07:20)
--- NOTE | 2024-01-26 09:21 | PCM.NOTE ---
Date and Time: 01/26/24 0908 Subjective Assessment: Mr. Vance is a 78 year old male with a pmhx of chronic respiratory failure secondary to COPD on 4 L oxygen, coronary artery disease, congestive heart failure, hypertension, HLD, who presented to ED 01/25/24 with complaints of progressive dyspnea and productive cough with green sputum. Onset of symptoms wa s about a week ago. Endorses subjective fever/chills, increased shortness of breath, and a cough with moderate green sputum. Patient does have COPD and is on 4L at baseline. Currently he is on 5L. He has had multiple admissions for COPD exacerbation, most recently 11/13/23 - 11/15/23. Patient states that he has had increased shortness of breath since his last admission, especially as the temperature has been rising. He is unable to perform ADL's without moderate - severe dyspnea. Denies cp, abdominal pain, GONSALES, dizziness, N/V/D. In ED, patient tachypneic on arrival. CXR demonstrates new patchy left lung base interstitial alveolar opacity. Lab findings remarkable for mild leukocytosis with WBC at 10.7, normocytic anemia with hgb at 12.9, and Co2 at 35. Respiratory panel negative. Patient received Ceftriaxone/solu-medrol/proventil in ED. Admit for acute respiratory failure with hypoxia secondary to COPD exacerbation and pneumonia. Plan to continue Zosyn/steroids. 01/25: -Met with patient bedside. Endorses dyspnea and cough are improved. Cough productive with light green sputum. Currently requiring 8L oxymizer. Baseline is 4L NC. Lung sounds diminished on auscultation. Labs/vitals stable. Plan to continue current management with abx/steroids/nebs/RT. Denies fever, cp, abdominal pain, GONSALES, dizziness, N/V/D. - Review of Systems Constitutional: Weakness Eyes: No Symptoms Ears, Nose, & Throat: No Symptoms Respiratory: Cough, Short Of Breath Cardiac: No Symptoms Abdominal/Gastrointestinal: No Symptoms Genitourinary Symptoms: No Symptoms Musculoskeletal: No Symptoms Skin: No Symptoms Neurological: No Symptoms Psychological: No Symptoms Endocrine: No Symptoms Hematologic/Lymphatic: No Symptoms Immunological/Allergic: No Symptoms Objective Exam General Appearance: no apparent distress Neurologic Exam: alert, oriented x 3, cooperative Skin Exam: pale Eye Exam: PERRL Ears, Nose, Throat Exam: moist mucous membranes Neck Exam: normal inspection Respiratory Exam: diminished breath sounds Cardiovascular Exam: regular rate/rhythm, normal heart sounds Gastrointestinal/Abdomen Exam: soft, normal bowel sounds Extremity Exam: normal inspection Back Exam: normal inspection Male Genitalia Exam: deferred Rectal Exam: deferred Objective Data Vital Signs: Vital Signs - 24 hr Temp Pulse Resp BP BP Pulse Ox 01/26/24 07:44 72 18 99 01/26/24 07:26 97.7 F 69 20 131/65 99 01/26/24 04:00 97.5 F 72 18 116/73 89 L 01/26/24 02:42 91 H 22 93 L 01/25/24 23:51 97.3 F 85 18 103/63 96 01/25/24 22:14 73 20 96 01/25/24 20:00 97.5 F 92 H 18 104/59 99 01/25/24 18:35 101 H 24 97 01/25/24 16:58 91 L 01/25/24 16:55 87 L 01/25/24 16:00 98.6 F 115 H 24 99/54 85 L 01/25/24 13:36 97.5 F 101 H 32 H 132/80 92 L 01/25/24 13:28 98 H 32 H 92 L 01/25/24 13:09 93 L 01/25/24 12:45 89 37 H 121/70 93 L 01/25/24 12:30 87 37 H 120/69 01/25/24 12:15 88 38 H 121/70 94 L 01/25/24 12:00 89 34 H 124/73 95 01/25/24 11:45 90 29 H 121/74 95 01/25/24 11:30 91 H 33 H 112/77 01/25/24 11:22 26 H 127/73 96 01/25/24 11:20 87 24 127/73 96 01/25/24 11:10 24 96 01/25/24 11:03 85 29 H 97 01/25/24 10:53 88 26 H 93 L 01/25/24 10:52 94 L 01/25/24 10:46 86 32 H 124/70 89 L 01/25/24 10:30 86 18 111/66 01/25/24 10:15 89 27 H 107/76 01/25/24 10:11 99.8 F 93 H 28 H 109/67 97 Pain Assessment - Last Documented Pain Intensity 0 Intake and Output: Intake & Output 01/23/24 01/24/24 01/25/24 01/26/24 11:59 11:59 11:59 11:59 Intake Total 1780 Output Total 1725 Balance 55 Weight 70.1 kg 70.6 kg Lab Results: Lab Results-Last 24 Hours 01/25/24 01/25/24 01/25/24 Range/Units 10:55 10:55 10:55 WBC 10.7 H (4.23-9.07) x10^3/uL RBC 4.97 (4.63-6.08) x10^6/uL Hgb 12.9 L (13.7-17.5) g/dL Hct 41.8 (40.1-51.0) % MCV 84.1 (79.0-92.2) fL MCH 26.0 (25.7-32.2) pg MCHC 30.9 L (32.3-36.5) g/dL RDW 16.2 H (11.6-14.4) % Plt Count 228 (163-337) x10^3/uL MPV 9.3 L (9.4-12.4) fL Gran % 87.5 H (34.0-67.9) % Immature Gran % (Auto) 0.3 (0.001-0.429) % Nucleat RBC Rel Count 0.0 (0.00-0.2) % Eos # (Auto) 0.05 (0.04-0.54) x10^3/uL Immature Gran # (Auto) 0.03 (0.001-0.031) x10^3u/L Absolute Lymphs (auto) 0.55 L (1.32-3.57) x10^3/uL Absolute Monos (auto) 0.65 (0.30-0.82) x10^3/uL Absolute Nucleated RBC 0.00 (0.00-0.012) x10^3u/L Lymphocytes % 5.2 L (21.8-53.1) % Monocytes % 6.1 (5.3-12.2) % Eosinophils % 0.5 L (0.8-7.0) % Basophils % 0.4 (0.2-1.2) % Absolute Granulocytes 9.34 H (1.78-5.38) x10^3/uL Basophils # 0.04 (0.01-0.08) x10^3/uL Sodium 140 (135-145) mmol/L Potassium 4.2 (3.5-5.1) mmol/L Chloride 100 (98-107) mmol/L Carbon Dioxide 35 H (22-30) mmol/L Anion Gap 8.9 (5-15) MEQ/L BUN 10 (9-20) mg/dL Creatinine 0.62 L (0.66-1.25) mg/dL Estimated GFR 98.4 ML/MIN Glucose 115 H (74-106) mg/dL POC Glucometer (74 to 106) mg/dL Lactic Acid (0.4-2.0) Calcium 9.8 (8.4-10.2) mg/dL Magnesium 1.8 (1.6-2.3) mg/dL Total Bilirubin 1.20 (0.2-1.3) mg/dL AST 21 (17-59) U/L ALT 13 (0-50) U/L Alkaline Phosphatase 56 (38-126) U/L Troponin I < 0.012 (0.000-0.033) ng/mL NT-Pro-B Natriuret Pep 629 (<300) pg/mL Serum Total Protein 6.9 (6.3-8.2) g/dL Albumin 4.1 (3.5-5.0) g/dL Influenza Type A Ag (NEGATIVE) Influenza Type B Ag (NEGATIVE) RSV (PCR) (NEGATIVE) SARS-CoV-2 (PCR) (NEGATIVE) Slides for Path Review YES 01/25/24 01/25/24 01/25/24 Range/Units 10:56 11:00 14:58 WBC (4.23-9.07) x10^3/uL RBC (4.63-6.08) x10^6/uL Hgb (13.7-17.5) g/dL Hct (40.1-51.0) % MCV (79.0-92.2) fL MCH (25.7-32.2) pg MCHC (32.3-36.5) g/dL RDW (11.6-14.4) % Plt Count (163-337) x10^3/uL MPV (9.4-12.4) fL Gran % (34.0-67.9) % Immature Gran % (Auto) (0.001-0.429) % Nucleat RBC Rel Count (0.00-0.2) % Eos # (Auto) (0.04-0.54) x10^3/uL Immature Gran # (Auto) (0.001-0.031) x10^3u/L Absolute Lymphs (auto) (1.32-3.57) x10^3/uL Absolute Monos (auto) (0.30-0.82) x10^3/uL Absolute Nucleated RBC (0.00-0.012) x10^3u/L Lymphocytes % (21.8-53.1) % Monocytes % (5.3-12.2) % Eosinophils % (0.8-7.0) % Basophils % (0.2-1.2) % Absolute Granulocytes (1.78-5.38) x10^3/uL Basophils # (0.01-0.08) x10^3/uL Sodium (135-145) mmol/L Potassium (3.5-5.1) mmol/L Chloride (98-107) mmol/L Carbon Dioxide (22-30) mmol/L Anion Gap (5-15) MEQ/L BUN (9-20) mg/dL Creatinine (0.66-1.25) mg/dL Estimated GFR ML/MIN Glucose (74-106) mg/dL POC Glucometer (74 to 106) mg/dL Lactic Acid 1.2 (0.4-2.0) Calcium (8.4-10.2) mg/dL Magnesium (1.6-2.3) mg/dL Total Bilirubin (0.2-1.3) mg/dL AST (17-59) U/L ALT (0-50) U/L Alkaline Phosphatase (38-126) U/L Troponin I < 0.012 (0.000-0.033) ng/mL NT-Pro-B Natriuret Pep (<300) pg/mL Serum Total Protein (6.3-8.2) g/dL Albumin (3.5-5.0) g/dL Influenza Type A Ag NEGATIVE (NEGATIVE) Influenza Type B Ag NEGATIVE (NEGATIVE) RSV (PCR) NEGATIVE (NEGATIVE) SARS-CoV-2 (PCR) NEGATIVE (NEGATIVE) Slides for Path Review 01/25/24 01/25/24 01/25/24 Range/Units 16:11 18:49 22:08 WBC (4.23-9.07) x10^3/uL RBC (4.63-6.08) x10^6/uL Hgb (13.7-17.5) g/dL Hct (40.1-51.0) % MCV (79.0-92.2) fL MCH (25.7-32.2) pg MCHC (32.3-36.5) g/dL RDW (11.6-14.4) % Plt Count (163-337) x10^3/uL MPV (9.4-12.4) fL Gran % (34.0-67.9) % Immature Gran % (Auto) (0.001-0.429) % Nucleat RBC Rel Count (0.00-0.2) % Eos # (Auto) (0.04-0.54) x10^3/uL Immature Gran # (Auto) (0.001-0.031) x10^3u/L Absolute Lymphs (auto) (1.32-3.57) x10^3/uL Absolute Monos (auto) (0.30-0.82) x10^3/uL Absolute Nucleated RBC (0.00-0.012) x10^3u/L Lymphocytes % (21.8-53.1) % Monocytes % (5.3-12.2) % Eosinophils % (0.8-7.0) % Basophils % (0.2-1.2) % Absolute Granulocytes (1.78-5.38) x10^3/uL Basophils # (0.01-0.08) x10^3/uL Sodium (135-145) mmol/L Potassium (3.5-5.1) mmol/L Chloride (98-107) mmol/L Carbon Dioxide (22-30) mmol/L Anion Gap (5-15) MEQ/L BUN (9-20) mg/dL Creatinine (0.66-1.25) mg/dL Estimated GFR ML/MIN Glucose (74-106) mg/dL POC Glucometer 176 H 180 H (74 to 106) mg/dL Lactic Acid (0.4-2.0) Calcium (8.4-10.2) mg/dL Magnesium (1.6-2.3) mg/dL Total Bilirubin (0.2-1.3) mg/dL AST (17-59) U/L ALT (0-50) U/L Alkaline Phosphatase (38-126) U/L Troponin I < 0.012 (0.000-0.033) ng/mL NT-Pro-B Natriuret Pep (<300) pg/mL Serum Total Protein (6.3-8.2) g/dL Albumin (3.5-5.0) g/dL Influenza Type A Ag (NEGATIVE) Influenza Type B Ag (NEGATIVE) RSV (PCR) (NEGATIVE) SARS-CoV-2 (PCR) (NEGATIVE) Slides for Path Review 01/26/24 01/26/24 01/26/24 Range/Units 05:38 05:38 07:04 WBC 9.2 H (4.23-9.07) x10^3/uL RBC 4.74 (4.63-6.08) x10^6/uL Hgb 12.1 L (13.7-17.5) g/dL Hct 40.6 (40.1-51.0) % MCV 85.7 (79.0-92.2) fL MCH 25.5 L (25.7-32.2) pg MCHC 29.8 L (32.3-36.5) g/dL RDW 16.4 H (11.6-14.4) % Plt Count 226 (163-337) x10^3/uL MPV 9.8 (9.4-12.4) fL Gran % 94.1 H (34.0-67.9) % Immature Gran % (Auto) 0.3 (0.001-0.429) % Nucleat RBC Rel Count 0.0 (0.00-0.2) % Eos # (Auto) 0 L (0.04-0.54) x10^3/uL Immature Gran # (Auto) 0.03 (0.001-0.031) x10^3u/L Absolute Lymphs (auto) 0.40 L (1.32-3.57) x10^3/uL Absolute Monos (auto) 0.11 L (0.30-0.82) x10^3/uL Absolute Nucleated RBC 0.00 (0.00-0.012) x10^3u/L Lymphocytes % 4.3 L (21.8-53.1) % Monocytes % 1.2 L (5.3-12.2) % Eosinophils % 0.0 L (0.8-7.0) % Basophils % 0.1 L (0.2-1.2) % Absolute Granulocytes 8.68 H (1.78-5.38) x10^3/uL Basophils # 0.01 (0.01-0.08) x10^3/uL Sodium 137 (135-145) mmol/L Potassium 4.5 (3.5-5.1) mmol/L Chloride 99 (98-107) mmol/L Carbon Dioxide 33 H (22-30) mmol/L Anion Gap 9.5 (5-15) MEQ/L BUN 10 (9-20) mg/dL Creatinine 0.57 L (0.66-1.25) mg/dL Estimated GFR 101.0 ML/MIN Glucose 192 H (74-106) mg/dL POC Glucometer 150 H (74 to 106) mg/dL Lactic Acid (0.4-2.0) Calcium 9.3 (8.4-10.2) mg/dL Magnesium 2.0 (1.6-2.3) mg/dL Total Bilirubin 0.80 (0.2-1.3) mg/dL AST 16 L (17-59) U/L ALT 12 (0-50) U/L Alkaline Phosphatase 52 (38-126) U/L Troponin I (0.000-0.033) ng/mL NT-Pro-B Natriuret Pep 787 (<300) pg/mL Serum Total Protein 6.2 L (6.3-8.2) g/dL Albumin 3.6 (3.5-5.0) g/dL Influenza Type A Ag (NEGATIVE) Influenza Type B Ag (NEGATIVE) RSV (PCR) (NEGATIVE) SARS-CoV-2 (PCR) (NEGATIVE) Slides for Path Review Radiology Exams: Radiology Procedures Category Date Time Status CHEST 1 VIEW (PORTABLE) Stat Exams 01/25/24 10:32 Completed ECHO W/2D AND DOPPLER [US] Routine Exams 01/25/24 14:29 Taken Multi-Disciplinary Progress Notes: Multi-Disciplinary Progress Notes 01/25/24 15:55 Pharmacy Note by Kirill Harry Does patient need to be on two ARB's? Cozaar and Entresto. Initialized on 01/25/24 15:55 - END OF NOTE Assessment/Plan (1) Acute respiratory failure with hypoxia Current Visit: Yes Status: Acute Assessment & Plan: -2/2 to copd exacerbation/pneumonia -CXR demonstrates new patchy left lung base interstitial alveolar opacity -RT eval -Continue ceftriaxone/azith/solu-medrol/Nebs/INH -IS -supplemental oxygen with goal spo2 > 88-92% - baseline 4L - on 5L currently -ABG prn if significant hypoxia/lethargic 01/25: -abx changed to Zosyn -8L oxymizer -continue nebs/solumedrol Code(s): J96.01 - ACUTE RESPIRATORY FAILURE WITH HYPOXIA (2) Pneumonia Current Visit: Yes Status: Acute Assessment & Plan: -CXR consistent with pneumonia in left lung base -Ceftriaxone started in ED, will continue -add azithromycin -Respiratory viral panel negative -Blood and sputum culture pending 01/25: -Abx Zosyn -continue above management -8L oxymizer -wean as appropriate, baseline 4L Code(s): J18.9 - PNEUMONIA, UNSPECIFIED ORGANISM (3) COPD exacerbation Current Visit: Yes Status: Acute Assessment & Plan: -Most likely secondary to pneumonia -supplemental oxygen with spo2 goal 88-92% - 4L baseline -DuoNebs PRN -CXR reviewed, as stated above -respiratory panel negative -Solumedrol 40mg Q8H -Ceftriaxone/azith -consider CT chest/pulm consult if no improvement 01/25: -ABx changed to zosyn -8L oxymizer -Consider pulm consult/CT if no improvement Code(s): J44.1 - CHRONIC OBSTRUCTIVE PULMONARY DISEASE W (ACUTE) EXACERBATION (4) CHF (congestive heart failure) Current Visit: Yes Status: Acute Assessment & Plan: -Echo from 01/01/23 -IMPRESSION: EF 60% 1) MILD TO MODERATE CONCENTRIC LEFT VENTRICULAR HYPERTROPHY. 2) NORMAL LEFT VENTRICULAR SYSTOLIC FUNCTION. 3) CALCIFIC AORTIC SCLEROSIS WITHOUT EVIDENCE OF ANY STENOSIS. 4) DIASTOLIC DYSFUNCTION PRESENTED WITH REVERSE MITRAL INFLOW E:A RATIO. 5) TRACE MITRAL REGURGITATION. 6) TRACE TRICUSPID REGURGITATION. 7) MILD PULMONIC INSUFFICIENCY. -BNP 629 -continue home meds -trops negative -Continue home meds/ entresto -Daily weights/ elevate HOB/Strict I&O -Optimize electrolytes with goal K>4, Mg>2 Code(s): I50.9 - HEART FAILURE, UNSPECIFIED (5) HTN (hypertension) Current Visit: Yes Status: Acute Assessment & Plan: -Stable, continue home meds Code(s): I10 - ESSENTIAL (PRIMARY) HYPERTENSION (6) CAD (coronary artery disease) Current Visit: Yes Status: Acute Assessment & Plan: -continue home meds Code(s): I25.10 - ATHSCL HEART DISEASE OF [place] CORONARY ARTERY W/O ANG PCTRS (7) Anxiety Current Visit: Yes Status: Acute Assessment & Plan: -continue home meds Code(s): F41.9 - ANXIETY DISORDER, UNSPECIFIED (8) HLD (hyperlipidemia) Current Visit: Yes Status: Acute Assessment & Plan: -continue home meds VTE: Lovenox PPI: protonix Dispo: 1-2 days Code status: Full code Code(s): J96.01 - ACUTE RESPIRATORY FAILURE WITH HYPOXIA (2) Pneumonia Current Visit: Yes Status: Acute Code(s): J18.9 - PNEUMONIA, UNSPECIFIED ORGANISM (3) COPD exacerbation Current Visit: Yes Status: Acute Code(s): J44.1 - CHRONIC OBSTRUCTIVE PULMONARY DISEASE W (ACUTE) EXACERBATION (4) CHF (congestive heart failure) Current Visit: Yes Status: Acute Code(s): I50.9 - HEART FAILURE, UNSPECIFIED (5) HTN (hypertension) Current Visit: Yes Status: Acute Code(s): I10 - ESSENTIAL (PRIMARY) HYPERTENSION (6) CAD (coronary artery disease) Current Visit: Yes Status: Acute Code(s): I25.10 - ATHSCL HEART DISEASE OF [place] CORONARY ARTERY W/O ANG PCTRS (7) Anxiety Current Visit: Yes Status: Acute Code(s): F41.9 - ANXIETY DISORDER, UNSPECIFIED (8) HLD (hyperlipidemia) Current Visit: Yes Status: Acute Code(s): E78.5 - HYPERLIPIDEMIA, UNSPECIFIED
[2024-01-26] MEDS: LASIX 20 MG PO SCH (09:22)
[2024-01-26] MEDS: Aldactone 25 MG PO SCH (09:22)
[2024-01-26] MEDS: Imdur 60MG PO SCH (09:22)
[2024-01-26] MEDS ORDERED: Cozaar 50 MG PO SCH (10:00)
[2024-01-26] MEDS ORDERED: ROCEPHIN 1 GM / 100 ML NaCl 1 GM/100 ML IVPB IV SCH (10:00)
[2024-01-26 11:30] LABS: Slide Review 1 YES
[2024-01-26] MEDS: solu-MEDROL IV SCH (15:12)
[2024-01-26] MEDS: Artificial Tears 15 ML OP SCH (15:59)
[2024-01-26] MEDS: solu-MEDROL 60 MG, Sterile H2O 10 ml 2 ML IV SCH (21:39)
[2024-01-27 05:50] LABS: Absolute Neutrophil Ct (ANC) 9.04 x10^3/uL (1.78-5.38); Basophil (Absolute #) 0 x10^3/uL (0.01-0.08); Eosinophil (Absolute #) 0 x10^3/uL (0.04-0.54); Hematocrit 36.6 % (40.1-51.0); Hemoglobin 11.3 g/dL (13.7-17.5); IMMATURE GRAN # 0.06 x10^3u/L (0.001-0.031); IMMATURE GRAN % 0.6 % (0.001-0.429); Lymphocyte (Absolute #) 0.29 x10^3/uL (1.32-3.57); Mean Cell Volume 84.3 fL (79.0-92.2); Mean Corpuscular Hgb Concent. 30.9 g/dL (32.3-36.5); Mean Platelet Volume 9.9 fL (9.4-12.4); Monocyte (Absolute #) 0.23 x10^3/uL (0.30-0.82); Monocytes % 2.4 % (5.3-12.2); Platelet Count 224 x10^3/uL (163-337); Red Blood Count 4.34 x10^6/uL (4.63-6.08); Red Cell Distribution Width 16.1 % (11.6-14.4); White Blood Count 9.6 x10^3/uL (4.23-9.07)
[2024-01-27 06:14] LABS: ALBUMIN 3.3 g/dL (3.5-5.0); ANION GAP 5.8 MEQ/L (5-15); BILIRUBIN,TOTAL 0.5 mg/dL (0.2-1.3); Calcium 9.2 mg/dL (8.4-10.2); Creatinine 1 0.5 mg/dL (0.66-1.25); EST GLOMERULAR FILTRATION RATE 105.1 ML/MIN; MAGNESIUM 2.1 mg/dL (1.6-2.3); Potassium 4.4 mmol/L (3.5-5.1); Total Protein 5.7 g/dL (6.3-8.2)
[2024-01-27 08:37] LABS: Slide Review 1 YES
--- NOTE | 2024-01-27 11:04 | PCM.NOTE ---
Date and Time: 01/27/24 1059 Subjective Assessment: Mr. Vance is a 78 year old male with a pmhx of chronic respiratory failure secondary to COPD on 4 L oxygen, coronary artery disease, congestive heart failure, hypertension, HLD, who presented to ED 01/25/24 with complaints of progressive dyspnea and productive cough with green sputum. Onset of symptoms wa s about a week ago. Endorses subjective fever/chills, increased shortness of breath, and a cough with moderate green sputum. Patient does have COPD and is on 4L at baseline. Currently he is on 5L. He has had multiple admissions for COPD exacerbation, most recently 11/13/23 - 11/15/23. Patient states that he has had increased shortness of breath since his last admission, especially as the temperature has been rising. He is unable to perform ADL's without moderate - severe dyspnea. Denies cp, abdominal pain, GONSALES, dizziness, N/V/D. In ED, patient tachypneic on arrival. CXR demonstrates new patchy left lung base interstitial alveolar opacity. Lab findings remarkable for mild leukocytosis with WBC at 10.7, normocytic anemia with hgb at 12.9, and Co2 at 35. Respiratory panel negative. Patient received Ceftriaxone/solu-medrol/proventil in ED. Admit for acute respiratory failure with hypoxia secondary to COPD exacerbation and pneumonia. Plan to continue Zosyn/steroids. 01/25: -Met with patient bedside. Endorses dyspnea and cough are improved. Cough productive with light green sputum. Currently requiring 8L oxymizer. Baseline is 4L NC. Lung sounds diminished on auscultation. Labs/vitals stable. Plan to continue current management with abx/steroids/nebs/RT. Denies fever, cp, abdominal pain, GONSALES, dizziness, N/V/D. 01/27/24: No overnight events noted. Patient remains on 8L oxymizer. Continues with productive cough, no change, with green sputum. Patient states Dyspnea improved. Lung sounds diminished on auscultation. Sputum culture with gram negative ID - follow culture - continue zosyn/steroids. <LUCA LEYVA - Last Filed: 01/27/24 10:59> Date and Time: 01/27/241944 <NINI MARSH - Last Filed: 01/27/24 19:46> - Review of Systems Constitutional: No Symptoms Eyes: No Symptoms Ears, Nose, & Throat: No Symptoms Respiratory: Cough, Short Of Breath Cardiac: No Symptoms Abdominal/Gastrointestinal: No Symptoms Genitourinary Symptoms: No Symptoms Musculoskeletal: No Symptoms Skin: No Symptoms Neurological: No Symptoms Psychological: No Symptoms Endocrine: No Symptoms Hematologic/Lymphatic: No Symptoms <LUCA LEYVA - Last Filed: 01/27/24 10:59> Objective Exam General Appearance: no apparent distress Neurologic Exam: alert, oriented x 3, cooperative Skin Exam: pale Eye Exam: PERRL Ears, Nose, Throat Exam: moist mucous membranes Neck Exam: normal inspection Respiratory Exam: diminished breath sounds Cardiovascular Exam: regular rate/rhythm, normal heart sounds Gastrointestinal/Abdomen Exam: soft, normal bowel sounds Extremity Exam: normal inspection Back Exam: normal inspection Male Genitalia Exam: deferred Rectal Exam: deferred <LUCA LEYVA - Last Filed: 01/27/24 10:59> Objective Data Vital Signs: Vital Signs - 24 hr Temp Pulse Resp BP Pulse Ox 01/27/24 10:51 71 16 95 01/27/24 08:00 97.8 F 86 25 H 106/58 96 01/27/24 07:03 90 16 96 01/27/24 04:00 97.5 F 95 H 23 96/54 98 01/27/24 02:30 87 22 97 01/26/24 23:43 97.2 F 86 24 96/53 96 01/26/24 22:29 87 22 96 01/26/24 19:51 97.5 F 86 26 H 90/54 93 L 01/26/24 18:50 91 H 20 95 01/26/24 16:00 97.3 F 80 19 89/54 99 01/26/24 14:37 77 18 92 L 01/26/24 11:24 98.2 F 81 20 96/53 92 L 01/26/24 11:00 74 18 97 Pain Assessment - Last Documented Pain Intensity 0 Intake and Output: Intake & Output 01/24/24 01/25/24 01/26/24 01/27/24 11:59 11:59 11:59 11:59 Intake Total 2139 1997 Output Total 2024 1649 Balance 115 348 Weight 70.1 kg 70.6 kg 71 kg Lab Results: Lab Results-Last 24 Hours 01/26/24 01/26/24 01/26/24 Range/Units 05:00 05:38 15:58 WBC (4.23-9.07) x10^3/uL RBC (4.63-6.08) x10^6/uL Hgb (13.7-17.5) g/dL Hct (40.1-51.0) % MCV (79.0-92.2) fL MCH (25.7-32.2) pg MCHC (32.3-36.5) g/dL RDW (11.6-14.4) % Plt Count (163-337) x10^3/uL MPV (9.4-12.4) fL Gran % (34.0-67.9) % Immature Gran % (Auto) (0.001-0.429) % Nucleat RBC Rel Count (0.00-0.2) % Eos # (Auto) (0.04-0.54) x10^3/uL Immature Gran # (Auto) (0.001-0.031) x10^3u/L Absolute Lymphs (auto) (1.32-3.57) x10^3/uL Absolute Monos (auto) (0.30-0.82) x10^3/uL Absolute Nucleated RBC (0.00-0.012) x10^3u/L Lymphocytes % (21.8-53.1) % Monocytes % (5.3-12.2) % Eosinophils % (0.8-7.0) % Basophils % (0.2-1.2) % Absolute Granulocytes (1.78-5.38) x10^3/uL Basophils # (0.01-0.08) x10^3/uL Sodium (135-145) mmol/L Potassium (3.5-5.1) mmol/L Chloride (98-107) mmol/L Carbon Dioxide (22-30) mmol/L Anion Gap (5-15) MEQ/L BUN (9-20) mg/dL Creatinine (0.66-1.25) mg/dL Estimated GFR ML/MIN Glucose (74-106) mg/dL POC Glucometer 169 H (74 to 106) mg/dL Hemoglobin A1c 6.06 H (4.5-6.0) % Calcium (8.4-10.2) mg/dL Magnesium (1.6-2.3) mg/dL Total Bilirubin (0.2-1.3) mg/dL AST (17-59) U/L ALT (0-50) U/L Alkaline Phosphatase (38-126) U/L Serum Total Protein (6.3-8.2) g/dL Albumin (3.5-5.0) g/dL Slides for Path Review YES 01/26/24 01/27/24 01/27/24 Range/Units 22:02 05:29 05:29 WBC 9.6 H (4.23-9.07) x10^3/uL RBC 4.34 L (4.63-6.08) x10^6/uL Hgb 11.3 L (13.7-17.5) g/dL Hct 36.6 L (40.1-51.0) % MCV 84.3 (79.0-92.2) fL MCH 26.0 (25.7-32.2) pg MCHC 30.9 L (32.3-36.5) g/dL RDW 16.1 H (11.6-14.4) % Plt Count 224 (163-337) x10^3/uL MPV 9.9 (9.4-12.4) fL Gran % 94.0 H (34.0-67.9) % Immature Gran % (Auto) 0.6 H (0.001-0.429) % Nucleat RBC Rel Count 0.0 (0.00-0.2) % Eos # (Auto) 0 L (0.04-0.54) x10^3/uL Immature Gran # (Auto) 0.06 H (0.001-0.031) x10^3u/L Absolute Lymphs (auto) 0.29 L (1.32-3.57) x10^3/uL Absolute Monos (auto) 0.23 L (0.30-0.82) x10^3/uL Absolute Nucleated RBC 0.00 (0.00-0.012) x10^3u/L Lymphocytes % 3.0 L (21.8-53.1) % Monocytes % 2.4 L (5.3-12.2) % Eosinophils % 0.0 L (0.8-7.0) % Basophils % 0.0 L (0.2-1.2) % Absolute Granulocytes 9.04 H (1.78-5.38) x10^3/uL Basophils # 0 L (0.01-0.08) x10^3/uL Sodium 137 (135-145) mmol/L Potassium 4.4 (3.5-5.1) mmol/L Chloride 100 (98-107) mmol/L Carbon Dioxide 36 H (22-30) mmol/L Anion Gap 5.8 (5-15) MEQ/L BUN 12 (9-20) mg/dL Creatinine 0.50 L (0.66-1.25) mg/dL Estimated GFR 105.1 ML/MIN Glucose 151 H (74-106) mg/dL POC Glucometer 219 H (74 to 106) mg/dL Hemoglobin A1c (4.5-6.0) % Calcium 9.2 (8.4-10.2) mg/dL Magnesium 2.1 (1.6-2.3) mg/dL Total Bilirubin 0.50 (0.2-1.3) mg/dL AST 14 L (17-59) U/L ALT 10 (0-50) U/L Alkaline Phosphatase 44 (38-126) U/L Serum Total Protein 5.7 L (6.3-8.2) g/dL Albumin 3.3 L (3.5-5.0) g/dL Slides for Path Review YES 01/27/24 Range/Units 06:50 WBC (4.23-9.07) x10^3/uL RBC (4.63-6.08) x10^6/uL Hgb (13.7-17.5) g/dL Hct (40.1-51.0) % MCV (79.0-92.2) fL MCH (25.7-32.2) pg MCHC (32.3-36.5) g/dL RDW (11.6-14.4) % Plt Count (163-337) x10^3/uL MPV (9.4-12.4) fL Gran % (34.0-67.9) % Immature Gran % (Auto) (0.001-0.429) % Nucleat RBC Rel Count (0.00-0.2) % Eos # (Auto) (0.04-0.54) x10^3/uL Immature Gran # (Auto) (0.001-0.031) x10^3u/L Absolute Lymphs (auto) (1.32-3.57) x10^3/uL Absolute Monos (auto) (0.30-0.82) x10^3/uL Absolute Nucleated RBC (0.00-0.012) x10^3u/L Lymphocytes % (21.8-53.1) % Monocytes % (5.3-12.2) % Eosinophils % (0.8-7.0) % Basophils % (0.2-1.2) % Absolute Granulocytes (1.78-5.38) x10^3/uL Basophils # (0.01-0.08) x10^3/uL Sodium (135-145) mmol/L Potassium (3.5-5.1) mmol/L Chloride (98-107) mmol/L Carbon Dioxide (22-30) mmol/L Anion Gap (5-15) MEQ/L BUN (9-20) mg/dL Creatinine (0.66-1.25) mg/dL Estimated GFR ML/MIN Glucose (74-106) mg/dL POC Glucometer 133 H (74 to 106) mg/dL Hemoglobin A1c (4.5-6.0) % Calcium (8.4-10.2) mg/dL Magnesium (1.6-2.3) mg/dL Total Bilirubin (0.2-1.3) mg/dL AST (17-59) U/L ALT (0-50) U/L Alkaline Phosphatase (38-126) U/L Serum Total Protein (6.3-8.2) g/dL Albumin (3.5-5.0) g/dL Slides for Path Review Radiology Exams: Radiology Procedures Category Date Time Status CHEST 1 VIEW (PORTABLE) Stat Exams 01/25/24 10:32 Completed ECHO W/2D AND DOPPLER [US] Routine Exams 01/25/24 14:29 Taken <LUCA LEYVA - Last Filed: 01/27/24 10:59> Vital Signs: Vital Signs - 24 hr Temp Pulse Resp BP Pulse Ox 01/27/24 16:00 98.0 F 101 H 25 H 109/57 92 L 01/27/24 14:48 76 16 93 L 01/27/24 11:49 97.7 F 71 22 87/54 94 L 01/27/24 10:51 71 16 95 01/27/24 08:00 97.8 F 86 25 H 106/58 96 01/27/24 07:03 90 16 96 01/27/24 04:00 97.5 F 95 H 23 96/54 98 01/27/24 02:30 87 22 97 01/26/24 23:43 97.2 F 86 24 96/53 96 01/26/24 22:29 87 22 96 01/26/24 19:51 97.5 F 86 26 H 90/54 93 L Pain Assessment - Last Documented Pain Intensity 0 Intake and Output: Intake & Output 01/25/24 01/26/24 01/27/24 01/28/24 11:59 11:59 11:59 11:59 Intake Total 2139 1997 782 Output Total 2024 1649 800 Balance 115 348 -18 Weight 70.1 kg 70.6 kg 71 kg Lab Results: Lab Results-Last 24 Hours 01/26/24 01/27/24 01/27/24 Range/Units 22:02 05:29 05:29 WBC 9.6 H (4.23-9.07) x10^3/uL RBC 4.34 L (4.63-6.08) x10^6/uL Hgb 11.3 L (13.7-17.5) g/dL Hct 36.6 L (40.1-51.0) % MCV 84.3 (79.0-92.2) fL MCH 26.0 (25.7-32.2) pg MCHC 30.9 L (32.3-36.5) g/dL RDW 16.1 H (11.6-14.4) % Plt Count 224 (163-337) x10^3/uL MPV 9.9 (9.4-12.4) fL Gran % 94.0 H (34.0-67.9) % Immature Gran % (Auto) 0.6 H (0.001-0.429) % Nucleat RBC Rel Count 0.0 (0.00-0.2) % Eos # (Auto) 0 L (0.04-0.54) x10^3/uL Immature Gran # (Auto) 0.06 H (0.001-0.031) x10^3u/L Absolute Lymphs (auto) 0.29 L (1.32-3.57) x10^3/uL Absolute Monos (auto) 0.23 L (0.30-0.82) x10^3/uL Absolute Nucleated RBC 0.00 (0.00-0.012) x10^3u/L Lymphocytes % 3.0 L (21.8-53.1) % Monocytes % 2.4 L (5.3-12.2) % Eosinophils % 0.0 L (0.8-7.0) % Basophils % 0.0 L (0.2-1.2) % Absolute Granulocytes 9.04 H (1.78-5.38) x10^3/uL Basophils # 0 L (0.01-0.08) x10^3/uL Sodium 137 (135-145) mmol/L Potassium 4.4 (3.5-5.1) mmol/L Chloride 100 (98-107) mmol/L Carbon Dioxide 36 H (22-30) mmol/L Anion Gap 5.8 (5-15) MEQ/L BUN 12 (9-20) mg/dL Creatinine 0.50 L (0.66-1.25) mg/dL Estimated GFR 105.1 ML/MIN Glucose 151 H (74-106) mg/dL POC Glucometer 219 H (74 to 106) mg/dL Calcium 9.2 (8.4-10.2) mg/dL Magnesium 2.1 (1.6-2.3) mg/dL Total Bilirubin 0.50 (0.2-1.3) mg/dL AST 14 L (17-59) U/L ALT 10 (0-50) U/L Alkaline Phosphatase 44 (38-126) U/L Serum Total Protein 5.7 L (6.3-8.2) g/dL Albumin 3.3 L (3.5-5.0) g/dL Slides for Path Review YES 01/27/24 01/27/24 01/27/24 Range/Units 06:50 11:24 16:06 WBC (4.23-9.07) x10^3/uL RBC (4.63-6.08) x10^6/uL Hgb (13.7-17.5) g/dL Hct (40.1-51.0) % MCV (79.0-92.2) fL MCH (25.7-32.2) pg MCHC (32.3-36.5) g/dL RDW (11.6-14.4) % Plt Count (163-337) x10^3/uL MPV (9.4-12.4) fL Gran % (34.0-67.9) % Immature Gran % (Auto) (0.001-0.429) % Nucleat RBC Rel Count (0.00-0.2) % Eos # (Auto) (0.04-0.54) x10^3/uL Immature Gran # (Auto) (0.001-0.031) x10^3u/L Absolute Lymphs (auto) (1.32-3.57) x10^3/uL Absolute Monos (auto) (0.30-0.82) x10^3/uL Absolute Nucleated RBC (0.00-0.012) x10^3u/L Lymphocytes % (21.8-53.1) % Monocytes % (5.3-12.2) % Eosinophils % (0.8-7.0) % Basophils % (0.2-1.2) % Absolute Granulocytes (1.78-5.38) x10^3/uL Basophils # (0.01-0.08) x10^3/uL Sodium (135-145) mmol/L Potassium (3.5-5.1) mmol/L Chloride (98-107) mmol/L Carbon Dioxide (22-30) mmol/L Anion Gap (5-15) MEQ/L BUN (9-20) mg/dL Creatinine (0.66-1.25) mg/dL Estimated GFR ML/MIN Glucose (74-106) mg/dL POC Glucometer 133 H 152 H 96 (74 to 106) mg/dL Calcium (8.4-10.2) mg/dL Magnesium (1.6-2.3) mg/dL Total Bilirubin (0.2-1.3) mg/dL AST (17-59) U/L ALT (0-50) U/L Alkaline Phosphatase (38-126) U/L Serum Total Protein (6.3-8.2) g/dL Albumin (3.5-5.0) g/dL Slides for Path Review <NINI MARSH - Last Filed: 01/27/24 19:46> Assessment/Plan (1) Acute respiratory failure with hypoxia Current Visit: Yes Status: Acute Assessment & Plan: -2/2 to copd exacerbation/pneumonia -CXR demonstrates new patchy left lung base interstitial alveolar opacity -RT eval -Continue ceftriaxone/azith/solu-medrol/Nebs/INH -IS -supplemental oxygen with goal spo2 > 88-92% - baseline 4L - on 5L currently -ABG prn if significant hypoxia/lethargic 01/25: -abx changed to Zosyn -8L oxymizer -continue nebs/solumedrol Code(s): J96.01 - ACUTE RESPIRATORY FAILURE WITH HYPOXIA (2) Pneumonia Current Visit: Yes Status: Acute Assessment & Plan: -CXR consistent with pneumonia in left lung base -Ceftriaxone started in ED, will continue -add azithromycin -Respiratory viral panel negative -Blood and sputum culture pending 01/25: -Abx Zosyn -continue above management -8L oxymizer -wean as appropriate, baseline 4L 01/26: -Sputum culture with gram - ID, continue zosyn, follow culture -Blood culture NGTD -WBC improved since admission now at 9.6 Code(s): J18.9 - PNEUMONIA, UNSPECIFIED ORGANISM (3) COPD exacerbation Current Visit: Yes Status: Acute Assessment & Plan: -Most likely secondary to pneumonia -supplemental oxygen with spo2 goal 88-92% - 4L baseline -DuoNebs PRN -CXR reviewed, as stated above -respiratory panel negative -Solumedrol 40mg Q8H -Ceftriaxone/azith -consider CT chest/pulm consult if no improvement 01/25: -ABx changed to zosyn -8L oxymizer -Consider pulm consult/CT if no improvement Code(s): J44.1 - CHRONIC OBSTRUCTIVE PULMONARY DISEASE W (ACUTE) EXACERBATION (4) CHF (congestive heart failure) Current Visit: Yes Status: Acute Assessment & Plan: -Echo from 01/01/23 -IMPRESSION: EF 60% 1) MILD TO MODERATE CONCENTRIC LEFT VENTRICULAR HYPERTROPHY. 2) NORMAL LEFT VENTRICULAR SYSTOLIC FUNCTION. 3) CALCIFIC AORTIC SCLEROSIS WITHOUT EVIDENCE OF ANY STENOSIS. 4) DIASTOLIC DYSFUNCTION PRESENTED WITH REVERSE MITRAL INFLOW E:A RATIO. 5) TRACE MITRAL REGURGITATION. 6) TRACE TRICUSPID REGURGITATION. 7) MILD PULMONIC INSUFFICIENCY. -BNP 629 -continue home meds -trops negative -Continue home meds/ entresto -Daily weights/ elevate HOB/Strict I&O -Optimize electrolytes with goal K>4, Mg>2 01/26: -Does not appear to be in exacerbation -No BLE edema on exam -continue home medications Code(s): I50.9 - HEART FAILURE, UNSPECIFIED (5) HTN (hypertension) Current Visit: Yes Status: Acute Assessment & Plan: -Stable, continue home meds Code(s): I10 - ESSENTIAL (PRIMARY) HYPERTENSION (6) CAD (coronary artery disease) Current Visit: Yes Status: Acute Assessment & Plan: -continue home meds Code(s): I25.10 - ATHSCL HEART DISEASE OF [place] CORONARY ARTERY W/O ANG PCTRS (7) Anxiety Current Visit: Yes Status: Acute Assessment & Plan: -continue home meds Code(s): F41.9 - ANXIETY DISORDER, UNSPECIFIED (8) HLD (hyperlipidemia) Current Visit: Yes Status: Acute Assessment & Plan: -continue home meds VTE: Lovenox PPI: protonix Dispo: 1-2 days Code status: Full code Code(s): J96.01 - ACUTE RESPIRATORY FAILURE WITH HYPOXIA (2) Pneumonia Current Visit: Yes Status: Acute Code(s): J18.9 - PNEUMONIA, UNSPECIFIED ORGANISM (3) COPD exacerbation Current Visit: Yes Status: Acute Code(s): J44.1 - CHRONIC OBSTRUCTIVE PULMONARY DISEASE W (ACUTE) EXACERBATION (4) CHF (congestive heart failure) Current Visit: Yes Status: Acute Code(s): I50.9 - HEART FAILURE, UNSPECIFIED (5) HTN (hypertension) Current Visit: Yes Status: Acute Code(s): I10 - ESSENTIAL (PRIMARY) HYPERTENSION (6) CAD (coronary artery disease) Current Visit: Yes Status: Acute Code(s): I25.10 - ATHSCL HEART DISEASE OF [place] CORONARY ARTERY W/O ANG PCTRS (7) Anxiety Current Visit: Yes Status: Acute Code(s): F41.9 - ANXIETY DISORDER, UNSPECIFIED (8) HLD (hyperlipidemia) Current Visit: Yes Status: Acute Code(s): E78.5 - HYPERLIPIDEMIA, UNSPECIFIED <LUCA LEYVA - Last Filed: 01/27/24 10:59> LISY Encounter - LISY Encounter Attestation LISY Encounter Attestation: "IhavepersonallyseenandexaminedWRIGHT,EDVIN PADILLA andhavediscussed pertinent aspects of their care with Luca Chang agree with the history, physical exam (any modifications based on my personal exam will be noted below), assessment, and plan as outlined in original note. Please see immediately below for my summary of findings and additional assessment and plan along with any meaningful corrections/explanations to the Subjective/Objective portions of the LISY note will be noted." My portion of the encounter took place via telemedicine. -Stable on 8L but reports symptomatic improvement. Historically he takes a few days to turn around. Would continue IV steroids, IV antibiotics and nebs at this time. <NINI MARSH - Last Filed: 01/27/24 19:46>
[2024-01-28 05:23] LABS: Absolute Neutrophil Ct (ANC) 7.15 x10^3/uL (1.78-5.38); Basophil (Absolute #) 0 x10^3/uL (0.01-0.08); Eosinophil (Absolute #) 0 x10^3/uL (0.04-0.54); Hematocrit 38.2 % (40.1-51.0); Hemoglobin 11.6 g/dL (13.7-17.5); IMMATURE GRAN # 0.03 x10^3u/L (0.001-0.031); IMMATURE GRAN % 0.4 % (0.001-0.429); Lymphocyte (Absolute #) 0.37 x10^3/uL (1.32-3.57); Lymphocytes % 4.8 % (21.8-53.1); Mean Cell Volume 84.7 fL (79.0-92.2); Mean Corpuscular Hemoglobin 25.7 pg (25.7-32.2); Mean Corpuscular Hgb Concent. 30.4 g/dL (32.3-36.5); Mean Platelet Volume 9.5 fL (9.4-12.4); Monocyte (Absolute #) 0.21 x10^3/uL (0.30-0.82); Monocytes % 2.7 % (5.3-12.2); Neutrophil % 92.1 % (34.0-67.9); Platelet Count 224 x10^3/uL (163-337); Red Blood Count 4.51 x10^6/uL (4.63-6.08); Red Cell Distribution Width 16.6 % (11.6-14.4); White Blood Count 7.8 x10^3/uL (4.23-9.07)
[2024-01-28 05:47] LABS: ALBUMIN 3.2 g/dL (3.5-5.0); ANION GAP 6.5 MEQ/L (5-15); BILIRUBIN,TOTAL 0.5 mg/dL (0.2-1.3); Calcium 9.2 mg/dL (8.4-10.2); Creatinine 1 0.65 mg/dL (0.66-1.25); EST GLOMERULAR FILTRATION RATE 97.1 ML/MIN; Potassium 4.5 mmol/L (3.5-5.1); Total Protein 5.8 g/dL (6.3-8.2)
[2024-01-28 07:57] LABS: Slide Review 1 YES
[2024-01-28] MEDS: Protonix 40MG Tablet PO SCH (11:36)
--- NOTE | 2024-01-28 11:47 | PCM.NOTE ---
Date and Time: 01/28/24 1138 Subjective Assessment: 01/28/24 Mr. Vance is a 78 year old male with a pmhx of chronic respiratory failure secondary COPD on chronic4 L oxygen, coronary artery disease, congestive heart failure, hypertension, HLD. He presented to ED 01/25/24 with complaints of progressive dyspnea and productive cough with green sputum. Onset of symptoms was about a week ago. Endorsed subjective fever/chills, increased shortness of breath, and a cough with moderate green sputum.Required on 5L O2 on admission. He has had multiple admissions for COPD exacerbation, most recently 11/13/23 - 11/15/23. Patient states that he has had increased shortness of breath since his last admission, especially as the temperature has been rising. He is unable to perform ADL's without moderate - severe dyspnea. In ED, patient was tachypneic on arrival. CXR demonstrated new patchy left lung base interstitial alveolar opacity. Lab findings remarkable for mild leukocytosis with WBC at 10.7, normocytic anemia with hgb at 12.9, and Co2 at 35 on admission. Respiratory panel negative. Patient received Ceftriaxone/solu-medrol/proventil in ED. Admitted for acute respiratory failure with hypoxia secondary to COPD exacerbation and pneumonia. Received Zosyn/steroids IP. These IV meds changed to PO. He continues to c/o SOB ad some dizziness with exertion. He feels he needs home health care but does not think his insurance will cover. He has had it in the past and the insurance would not pay so they stopped coming. Discussed with case management. Will have PT eval for home needs vs. rehab. He is on baseline 4LNC today at 98%. He reports he did not wear CPAP last night as they forgot to place on him. Sputum culture + for Enterobacter Clocae. Will likely d/c tomorrow depending on PT evaluation. He denies CP, SOB, abd. pain, N/V/D. - Review of Systems Constitutional: Weakness, No Fever, No Chills Eyes: No Symptoms Ears, Nose, & Throat: No Symptoms Respiratory: No Cough, No Short Of Breath Cardiac: No Chest Pain, No Edema, No Syncope Abdominal/Gastrointestinal: No Abdominal Pain, No Nausea, No Vomiting, No Diarrhea Genitourinary Symptoms: No Dysuria Musculoskeletal: No Back Pain, No Neck Pain Skin: No Rash Neurological: Dizziness, No Focal Weakness, No Sensory Changes Psychological: No Symptoms Endocrine: No Symptoms Hematologic/Lymphatic: No Symptoms Immunological/Allergic: No Symptoms Objective Exam General Appearance: no apparent distress, alert, thin Neurologic Exam: alert, oriented x 3, cooperative, normal mood/affect, nml cerebellar function, sensation nml, No motor deficits Skin Exam: normal color, warm, dry Eye Exam: PERRL, EOMI, eyes nml inspection Ears, Nose, Throat Exam: normal ENT inspection, pharynx normal, moist mucous membranes Neck Exam: normal inspection, non-tender, supple, full range of motion Respiratory Exam: normal breath sounds, lungs clear, No respiratory distress Cardiovascular Exam: regular rate/rhythm, normal heart sounds Gastrointestinal/Abdomen Exam: soft, No tenderness, No mass Extremity Exam: normal inspection, normal range of motion Back Exam: normal inspection, normal range of motion, No CVA tenderness, No vertebral tenderness Male Genitalia Exam: deferred Rectal Exam: deferred Objective Data Vital Signs: Vital Signs - 24 hr Temp Pulse Resp BP Pulse Ox 01/28/24 10:48 82 18 98 01/28/24 08:00 97.8 F 81 18 111/66 99 01/28/24 06:59 68 18 96 01/28/24 04:00 97.8 F 84 22 117/70 95 01/28/24 03:21 61 20 01/27/24 23:51 97.0 F 77 20 96/56 94 L 01/27/24 23:48 64 20 95 01/27/24 19:55 97.3 F 98 H 24 87/52 96 01/27/24 19:54 100 H 20 96 01/27/24 16:00 98.0 F 101 H 25 H 109/57 92 L 01/27/24 14:48 76 16 93 L 01/27/24 11:49 97.7 F 71 22 87/54 94 L Pain Assessment - Last Documented Pain Intensity 0 Intake and Output: Intake & Output 01/25/24 01/26/24 01/27/24 01/28/24 11:59 11:59 11:59 11:59 Intake Total 2139 1997 2340 Output Total 2024 1649 1100 Balance 503 334 9362 Weight 70.1 kg 70.6 kg 71 kg 74.7 kg Lab Results: Lab Results-Last 24 Hours 01/27/24 01/27/24 01/28/24 Range/Units 16:06 21:48 04:55 WBC 7.8 (4.23-9.07) x10^3/uL RBC 4.51 L (4.63-6.08) x10^6/uL Hgb 11.6 L (13.7-17.5) g/dL Hct 38.2 L (40.1-51.0) % MCV 84.7 (79.0-92.2) fL MCH 25.7 (25.7-32.2) pg MCHC 30.4 L (32.3-36.5) g/dL RDW 16.6 H (11.6-14.4) % Plt Count 224 (163-337) x10^3/uL MPV 9.5 (9.4-12.4) fL Gran % 92.1 H (34.0-67.9) % Immature Gran % (Auto) 0.4 (0.001-0.429) % Nucleat RBC Rel Count 0.0 (0.00-0.2) % Eos # (Auto) 0 L (0.04-0.54) x10^3/uL Immature Gran # (Auto) 0.03 (0.001-0.031) x10^3u/L Absolute Lymphs (auto) 0.37 L (1.32-3.57) x10^3/uL Absolute Monos (auto) 0.21 L (0.30-0.82) x10^3/uL Absolute Nucleated RBC 0.00 (0.00-0.012) x10^3u/L Lymphocytes % 4.8 L (21.8-53.1) % Monocytes % 2.7 L (5.3-12.2) % Eosinophils % 0.0 L (0.8-7.0) % Basophils % 0.0 L (0.2-1.2) % Absolute Granulocytes 7.15 H (1.78-5.38) x10^3/uL Basophils # 0 L (0.01-0.08) x10^3/uL Sodium (135-145) mmol/L Potassium (3.5-5.1) mmol/L Chloride (98-107) mmol/L Carbon Dioxide (22-30) mmol/L Anion Gap (5-15) MEQ/L BUN (9-20) mg/dL Creatinine (0.66-1.25) mg/dL Estimated GFR ML/MIN Glucose (74-106) mg/dL POC Glucometer 96 161 H (74 to 106) mg/dL Calcium (8.4-10.2) mg/dL Magnesium (1.6-2.3) mg/dL Total Bilirubin (0.2-1.3) mg/dL AST (17-59) U/L ALT (0-50) U/L Alkaline Phosphatase (38-126) U/L Serum Total Protein (6.3-8.2) g/dL Albumin (3.5-5.0) g/dL Slides for Path Review YES 01/28/24 01/28/24 Range/Units 04:55 07:41 WBC (4.23-9.07) x10^3/uL RBC (4.63-6.08) x10^6/uL Hgb (13.7-17.5) g/dL Hct (40.1-51.0) % MCV (79.0-92.2) fL MCH (25.7-32.2) pg MCHC (32.3-36.5) g/dL RDW (11.6-14.4) % Plt Count (163-337) x10^3/uL MPV (9.4-12.4) fL Gran % (34.0-67.9) % Immature Gran % (Auto) (0.001-0.429) % Nucleat RBC Rel Count (0.00-0.2) % Eos # (Auto) (0.04-0.54) x10^3/uL Immature Gran # (Auto) (0.001-0.031) x10^3u/L Absolute Lymphs (auto) (1.32-3.57) x10^3/uL Absolute Monos (auto) (0.30-0.82) x10^3/uL Absolute Nucleated RBC (0.00-0.012) x10^3u/L Lymphocytes % (21.8-53.1) % Monocytes % (5.3-12.2) % Eosinophils % (0.8-7.0) % Basophils % (0.2-1.2) % Absolute Granulocytes (1.78-5.38) x10^3/uL Basophils # (0.01-0.08) x10^3/uL Sodium 139 (135-145) mmol/L Potassium 4.5 (3.5-5.1) mmol/L Chloride 99 (98-107) mmol/L Carbon Dioxide 38 H (22-30) mmol/L Anion Gap 6.5 (5-15) MEQ/L BUN 13 (9-20) mg/dL Creatinine 0.65 L (0.66-1.25) mg/dL Estimated GFR 97.1 ML/MIN Glucose 135 H (74-106) mg/dL POC Glucometer 95 (74 to 106) mg/dL Calcium 9.2 (8.4-10.2) mg/dL Magnesium 2.0 (1.6-2.3) mg/dL Total Bilirubin 0.50 (0.2-1.3) mg/dL AST 15 L (17-59) U/L ALT 10 (0-50) U/L Alkaline Phosphatase 44 (38-126) U/L Serum Total Protein 5.8 L (6.3-8.2) g/dL Albumin 3.2 L (3.5-5.0) g/dL Slides for Path Review Assessment/Plan (1) Acute respiratory failure with hypoxia Current Visit: Yes Status: Acute Assessment & Plan: - On baseline 4@ 4lNC- 98% - Changed IV antibiotics and steroids to oral - continue nebs/solumedrol - RT eval and treat - CPAP at [facility] - PT eval and treat - 2:2 pneumonia/ COPD Code(s): J96.01 - ACUTE RESPIRATORY FAILURE WITH HYPOXIA (2) Pneumonia Current Visit: Yes Status: Acute Assessment & Plan: - CXR 01/25/24 Portable chest demonstrates new patchy left lung base interstitial alveolar opacity. Remaining chest unchanged again with COPD, minimal bibasilar subsegmental atelectasis/scarring, and left mid lung suture material. Heart not enlarged. Bony thorax intact with osteopenia. - Sputum culture + for Enterobactor Clocae Complex - Antibiotics and steroids changed to PO - On baseline O2 at 4lNC- 98% - WBC 7.8 Code(s): J18.9 - PNEUMONIA, UNSPECIFIED ORGANISM (3) CHF (congestive heart failure) Current Visit: Yes Status: Chronic Assessment & Plan: -Echo from 01/01/23 -IMPRESSION: EF 60% 1) MILD TO MODERATE CONCENTRIC LEFT VENTRICULAR HYPERTROPHY. 2) NORMAL LEFT VENTRICULAR SYSTOLIC FUNCTION. 3) CALCIFIC AORTIC SCLEROSIS WITHOUT EVIDENCE OF ANY STENOSIS. 4) DIASTOLIC DYSFUNCTION PRESENTED WITH REVERSE MITRAL INFLOW E:A RATIO. 5) TRACE MITRAL REGURGITATION. 6) TRACE TRICUSPID REGURGITATION. 7) MILD PULMONIC INSUFFICIENCY. -BNP 629 -continue home meds -trops negative -Continue home meds/ entresto -Daily weights/ elevate HOB/Strict I&O -Does not appear to be in exacerbation -No BLE edema on exam -continue home medications Code(s): I50.9 - HEART FAILURE, UNSPECIFIED (4) HLD (hyperlipidemia) Current Visit: Yes Status: Chronic Assessment & Plan: -continue home meds Code(s): E78.5 - HYPERLIPIDEMIA, UNSPECIFIED (5) HTN (hypertension) Current Visit: Yes Status: Chronic Assessment & Plan: -Stable, continue home meds Code(s): I10 - ESSENTIAL (PRIMARY) HYPERTENSION (6) COPD exacerbation Current Visit: Yes Status: Chronic Assessment & Plan: - Continue PO antibiotics and steroids - On baseline O2 4lNC Code(s): J44.1 - CHRONIC OBSTRUCTIVE PULMONARY DISEASE W (ACUTE) EXACERBATION (7) Anxiety Current Visit: No Status: Chronic Assessment & Plan: -continue home meds Code(s): F41.9 - ANXIETY DISORDER, UNSPECIFIED (8) CAD (coronary artery disease) Current Visit: No Status: Chronic Qualifiers: Coronary Disease-Associated Artery/Lesion type: [place] artery [place] vs. transplanted heart: [place] heart Associated angina: without angina Qualified Code(s): I25.10 - Atherosclerotic heart disease of [place] coronary artery without angina pectoris Assessment & Plan: -continue home meds VTE: Lovenox PPI: protonix Dispo: tomorrow Code status: Full code Code(s): I25.10 - ATHSCL HEART DISEASE OF [place] CORONARY ARTERY W/O ANG PCTRS
[2024-01-28] MEDS: Levofloxacin 500 MG Tablet PO SCH (15:26)
[2024-01-28] MEDS: Levofloxacin 250MG Tablet PO SCH (15:26)
[2024-01-28] MEDS: DELTASONE 20 MG PO SCH (21:29)
[2024-01-29 04:59] LABS: Absolute Neutrophil Ct (ANC) 6.11 x10^3/uL (1.78-5.38); BASOPHIL % 0.1 % (0.2-1.2); Basophil (Absolute #) 0.01 x10^3/uL (0.01-0.08); Eosinophil (Absolute #) 0 x10^3/uL (0.04-0.54); Hematocrit 38.6 % (40.1-51.0); Hemoglobin 11.6 g/dL (13.7-17.5); IMMATURE GRAN # 0.05 x10^3u/L (0.001-0.031); IMMATURE GRAN % 0.7 % (0.001-0.429); Lymphocyte (Absolute #) 0.58 x10^3/uL (1.32-3.57); Lymphocytes % 8.2 % (21.8-53.1); Mean Cell Volume 84.6 fL (79.0-92.2); Mean Corpuscular Hemoglobin 25.4 pg (25.7-32.2); Mean Corpuscular Hgb Concent. 30.1 g/dL (32.3-36.5); Mean Platelet Volume 9.2 fL (9.4-12.4); Monocyte (Absolute #) 0.36 x10^3/uL (0.30-0.82); Monocytes % 5.1 % (5.3-12.2); Neutrophil % 85.9 % (34.0-67.9); Platelet Count 235 x10^3/uL (163-337); Red Blood Count 4.56 x10^6/uL (4.63-6.08); Red Cell Distribution Width 16.4 % (11.6-14.4); White Blood Count 7.1 x10^3/uL (4.23-9.07)
[2024-01-29 05:34] LABS: ANION GAP 5.7 MEQ/L (5-15); BILIRUBIN,TOTAL 0.6 mg/dL (0.2-1.3); Calcium 8.9 mg/dL (8.4-10.2); Creatinine 1 0.54 mg/dL (0.66-1.25); EST GLOMERULAR FILTRATION RATE 102.6 ML/MIN; Total Protein 5.3 g/dL (6.3-8.2)
[2024-01-29 07:22] LABS: Slide Review 1 YES
--- NOTE | 2024-01-29 11:01 | PCM.DS ---
Discharge Summary Date of Admission: 01/26/24 09:08 Date of Discharge: 01/29/24 Admitting Physician: NINI MARSH MD Primary Care Provider: FARHAT SEGURA DO [facility]ies All[facility] Allergy (Severe, Verified 11/13/23 15:24) [facility] Summary - Hospital Course Hospital Course: 01/28/24 Mr. Vance is a 78 year old male with a pmhx of chronic respiratory failure secondary COPD on chronic4 L oxygen, coronary artery disease, congestive heart failure, hypertension, HLD. He presented to ED 01/25/24 with complaints of pro gressive dyspnea and productive cough with green sputum. Onset of symptoms was about a week ago. Endorsed subjective fever/chills, increased shortness of breath, and a cough with moderate green sputum.Required on 5L O2 on admission. He has had multiple admissions for COPD exacerbation, most recently 11/13/23 - 11/15/23. Patient states that he has had increased shortness of breath since his last admission, especially as the temperature has been rising. He is unable to perform ADL's without moderate - severe dyspnea. In ED, patient was tachypneic on arrival. CXR demonstrated new patchy left lung base interstitial alveolar opacity. Lab findings remarkable for mild leukocytosis with WBC at 10.7, n ormocytic anemia with hgb at 12.9, and Co2 at 35 on admission. Respiratory panel negative. Patient received Ceftriaxone/solu-medrol/proventil in ED. Admitted for acute respiratory failure with hypoxia secondary to COPD exacerbation and pneumonia. Received Zosyn/steroids IP. These IV meds changed to PO. He continues to c/o SOB ad some dizziness with exertion. He feels he needs home health care but does not think his insurance will cover. He has had it in the past and the insurance would not pay so they stopped coming. Discussed with case management. Will have PT eval for home needs vs. rehab. He is on baseline 4LNC today at 98%. He reports he did not wear CPAP last night as they forgot to place on him. Sputum culture + for Enterobacter Clocae. Will likely d/c tomorrow depending on PT evaluation. He denies CP, SOB, abd. pain, N/V/D. 01/29/24 Pt resting in bed on baseline oxygen. Case management has set up palliative care for chronic illness OP as well as ACo to f/u with any other needs OP. Pt did well overnight on PO antibiotics and steroids. He remains on baseline O2 of 4lNC. Lung sounds are clear. He continues to have some dyspnea with exertion. He denies CP, SOB, abd. pain, N/V/D. Plan is to d/c today with OP antibiotics and steroids. Advised to rest in air conditioning at home during upcoming hot weather. - Vitals & Intake/Output Vital Signs: Vital Signs Temperature 98.1 F 01/29/24 07:23 Pulse Rate 61 01/29/24 07:23 Respiratory Rate 16 01/29/24 07:23 Blood Pressure 105/61 01/29/24 07:23 O2 Sat by Pulse Oximetry 98 01/29/24 07:23 Intake & Output: Intake & Output 01/26/24 01/27/24 01/28/24 01/29/24 11:59 11:59 11:59 11:59 Intake Total 21391 1260 Output Total 2024 1650 1100 2150 Balance 606 038 2655 -890 Weight 70.6 kg 71 kg 74.7 kg 93.1 kg - Lab Result Diagrams: 01/29/24 04:45 01/29/24 04:45 Lab Results-Last 24 Hrs: Lab Results-Last 24 Hours 01/28/24 01/28/24 01/28/24 Range/Units 11:56 16:46 21:32 WBC (4.23-9.07) x10^3/uL RBC (4.63-6.08) x10^6/uL Hgb (13.7-17.5) g/dL Hct (40.1-51.0) % MCV (79.0-92.2) fL MCH (25.7-32.2) pg MCHC (32.3-36.5) g/dL RDW (11.6-14.4) % Plt Count (163-337) x10^3/uL MPV (9.4-12.4) fL Gran % (34.0-67.9) % Immature Gran % (Auto) (0.001-0.429) % Nucleat RBC Rel Count (0.00-0.2) % Eos # (Auto) (0.04-0.54) x10^3/uL Immature Gran # (Auto) (0.001-0.031) x10^3u/L Absolute Lymphs (auto) (1.32-3.57) x10^3/uL Absolute Monos (auto) (0.30-0.82) x10^3/uL Absolute Nucleated RBC (0.00-0.012) x10^3u/L Lymphocytes % (21.8-53.1) % Monocytes % (5.3-12.2) % Eosinophils % (0.8-7.0) % Basophils % (0.2-1.2) % Absolute Granulocytes (1.78-5.38) x10^3/uL Basophils # (0.01-0.08) x10^3/uL Sodium (135-145) mmol/L Potassium (3.5-5.1) mmol/L Chloride (98-107) mmol/L Carbon Dioxide (22-30) mmol/L Anion Gap (5-15) MEQ/L BUN (9-20) mg/dL Creatinine (0.66-1.25) mg/dL Estimated GFR ML/MIN Glucose (74-106) mg/dL POC Glucometer 116 H 114 H 112 H (74 to 106) mg/dL Calcium (8.4-10.2) mg/dL Magnesium (1.6-2.3) mg/dL Total Bilirubin (0.2-1.3) mg/dL AST (17-59) U/L ALT (0-50) U/L Alkaline Phosphatase (38-126) U/L Serum Total Protein (6.3-8.2) g/dL Albumin (3.5-5.0) g/dL Slides for Path Review 01/29/24 01/29/24 01/29/24 Range/Units 04:45 04:45 04:45 WBC 7.1 (4.23-9.07) x10^3/uL RBC 4.56 L (4.63-6.08) x10^6/uL Hgb 11.6 L (13.7-17.5) g/dL Hct 38.6 L (40.1-51.0) % MCV 84.6 (79.0-92.2) fL MCH 25.4 L (25.7-32.2) pg MCHC 30.1 L (32.3-36.5) g/dL RDW 16.4 H (11.6-14.4) % Plt Count 235 (163-337) x10^3/uL MPV 9.2 L (9.4-12.4) fL Gran % 85.9 H (34.0-67.9) % Immature Gran % (Auto) 0.7 H (0.001-0.429) % Nucleat RBC Rel Count 0.0 (0.00-0.2) % Eos # (Auto) 0 L (0.04-0.54) x10^3/uL Immature Gran # (Auto) 0.05 H (0.001-0.031) x10^3u/L Absolute Lymphs (auto) 0.58 L (1.32-3.57) x10^3/uL Absolute Monos (auto) 0.36 (0.30-0.82) x10^3/uL Absolute Nucleated RBC 0.00 (0.00-0.012) x10^3u/L Lymphocytes % 8.2 L (21.8-53.1) % Monocytes % 5.1 L (5.3-12.2) % Eosinophils % 0.0 L (0.8-7.0) % Basophils % 0.1 L (0.2-1.2) % Absolute Granulocytes 6.11 H (1.78-5.38) x10^3/uL Basophils # 0.01 (0.01-0.08) x10^3/uL Sodium 136 (135-145) mmol/L Potassium 4.0 (3.5-5.1) mmol/L Chloride 98 (98-107) mmol/L Carbon Dioxide 36 H (22-30) mmol/L Anion Gap 5.7 (5-15) MEQ/L BUN 13 (9-20) mg/dL Creatinine 0.54 L (0.66-1.25) mg/dL Estimated GFR 102.6 ML/MIN Glucose 125 H (74-106) mg/dL POC Glucometer (74 to 106) mg/dL Calcium 8.9 (8.4-10.2) mg/dL Magnesium 1.9 (1.6-2.3) mg/dL Total Bilirubin 0.60 (0.2-1.3) mg/dL AST 16 L (17-59) U/L ALT 12 (0-50) U/L Alkaline Phosphatase 40 (38-126) U/L Serum Total Protein 5.3 L (6.3-8.2) g/dL Albumin 3.0 L (3.5-5.0) g/dL Slides for Path Review YES 01/29/24 Range/Units 07:38 WBC (4.23-9.07) x10^3/uL RBC (4.63-6.08) x10^6/uL Hgb (13.7-17.5) g/dL Hct (40.1-51.0) % MCV (79.0-92.2) fL MCH (25.7-32.2) pg MCHC (32.3-36.5) g/dL RDW (11.6-14.4) % Plt Count (163-337) x10^3/uL MPV (9.4-12.4) fL Gran % (34.0-67.9) % Immature Gran % (Auto) (0.001-0.429) % Nucleat RBC Rel Count (0.00-0.2) % Eos # (Auto) (0.04-0.54) x10^3/uL Immature Gran # (Auto) (0.001-0.031) x10^3u/L Absolute Lymphs (auto) (1.32-3.57) x10^3/uL Absolute Monos (auto) (0.30-0.82) x10^3/uL Absolute Nucleated RBC (0.00-0.012) x10^3u/L Lymphocytes % (21.8-53.1) % Monocytes % (5.3-12.2) % Eosinophils % (0.8-7.0) % Basophils % (0.2-1.2) % Absolute Granulocytes (1.78-5.38) x10^3/uL Basophils # (0.01-0.08) x10^3/uL Sodium (135-145) mmol/L Potassium (3.5-5.1) mmol/L Chloride (98-107) mmol/L Carbon Dioxide (22-30) mmol/L Anion Gap (5-15) MEQ/L BUN (9-20) mg/dL Creatinine (0.66-1.25) mg/dL Estimated GFR ML/MIN Glucose (74-106) mg/dL POC Glucometer 87 (74 to 106) mg/dL Calcium (8.4-10.2) mg/dL Magnesium (1.6-2.3) mg/dL Total Bilirubin (0.2-1.3) mg/dL AST (17-59) U/L ALT (0-50) U/L Alkaline Phosphatase (38-126) U/L Serum Total Protein (6.3-8.2) g/dL Albumin (3.5-5.0) g/dL Slides for Path Review Micro Results-Entire Visit: Microbiology 01/25/24 10:32 Aerobic Organism ID Result 1 - Final Sputum - Expectorant Not Reportable Aerobic Organism ID Result 2 - Final Not Reportable Aerobic Organism ID Result 3 - Final Not Reportable Aerobic Organism ID Result 4 - Final Not Reportable Aerobic Bacterial Sensitivity - Final Not Reportable 01/25/24 10:32 Gram Stain - Final Sputum - Expectorant Sputum Culture - Preliminary Enterobacter Clocae Complex 01/25/24 10:55 Blood Culture - Preliminary Blood 01/25/24 10:50 Blood Culture - Preliminary Blood Accuchecks Date 01/29/24 Date 01/28/24 Date 01/28/24 Date 01/28/24 Time 07:56 Time 17:12 Time 12:16 - Procedures and Test Procedures and Tests throughout Hospitalization: Therapy Orders & Screens 01/25/24 10:52 Respiratory Therapy Assessment DAILY Comment: 01/25/24 13:28 EKG REPEAT IN AM Comment: Respiratory Therapy Consult ONCE Comment: Reason For Exam: 01/25/24 14:59 Oxygen Nasal Cannula 4 lpm Comment: Diagnosis: dyspnea/cough 01/25/24 15:01 BiPap/CPAP ROUTINE Comment: Trilogy at night Diagnosis: dyspnea/cough 01/28/24 11:42 PT Eval & Treat ( Order) ONCE Reason for Eval:: home needs vs rehab placement for chronic COPD, dizziness and weakness with exertion. Diagnosis: dyspnea/cough Discharge Exam General Appearance: no apparent distress, alert, thin Neurologic Exam: alert, oriented x 3, cooperative, normal mood/affect, nml cerebellar function, sensation nml, No motor deficits Eye Exam: PERRL, EOMI, eyes nml inspection Ears, Nose, Throat Exam: normal ENT inspection, pharynx normal, moist mucous membranes Neck Exam: normal inspection, non-tender, supple, full range of motion Respiratory Exam: normal breath sounds, lungs clear, No respiratory distress Cardiovascular Exam: regular rate/rhythm, normal heart sounds Gastrointestinal/Abdomen Exam: soft, No tenderness, No mass Male Genitalia Exam: deferred Rectal Exam: deferred Back Exam: normal inspection, normal range of motion, No CVA tenderness, No vertebral tenderness Extremity Exam: normal inspection, normal range of motion Skin Exam: normal color, warm, dry Final Diagnosis/Problem List - Final Discharge Diagnosis/Problem (1) Acute respiratory failure with hypoxia Current Visit: Yes Status: Acute Code(s): J96.01 - ACUTE RESPIRATORY FAILURE WITH HYPOXIA (2) Pneumonia Current Visit: Yes Status: Acute Code(s): J18.9 - PNEUMONIA, UNSPECIFIED ORGANISM (3) CHF (congestive heart failure) Current Visit: Yes Status: Chronic Code(s): I50.9 - HEART FAILURE, UNSPECIFIED (4) HLD (hyperlipidemia) Current Visit: Yes Status: Chronic Code(s): E78.5 - HYPERLIPIDEMIA, UNSPECIFIED (5) HTN (hypertension) Current Visit: Yes Status: Chronic Code(s): I10 - ESSENTIAL (PRIMARY) HYPERTENSION (6) COPD exacerbation Current Visit: Yes Status: Chronic Code(s): J44.1 - CHRONIC OBSTRUCTIVE PULMONARY DISEASE W (ACUTE) EXACERBATION (7) Anxiety Current Visit: No Status: Chronic Code(s): F41.9 - ANXIETY DISORDER, UNSPECIFIED (8) CAD (coronary artery disease) Current Visit: No Status: Chronic Assessment & Plan: (1) Acute respiratory failure with hypoxia Current Visit: Yes Status: Acute Assessment & Plan: - On baseline 4@ 4lNC- 98% - Changed IV antibiotics and steroids to oral - continue nebs/solumedrol - RT eval and treat - CPAP at [facility] - PT eval and treat - 2:2 pneumonia/ COPD Code(s): J96.01 - ACUTE RESPIRATORY FAILURE WITH HYPOXIA (2) Pneumonia Current Visit: Yes Status: Acute Assessment & Plan: - CXR 01/25/24 Portable chest demonstrates new patchy left lung base interstitial alveolar opacity. Remaining chest unchanged again with COPD, minimal bibasilar subsegmental atelectasis/scarring, and left mid lung suture material. Heart not enlarged. Bony thorax intact with osteopenia. - Sputum culture + for Enterobactor Clocae Complex - Antibiotics and steroids changed to PO - On baseline O2 at 4lNC- 98% - WBC 7.8 Code(s): J18.9 - PNEUMONIA, UNSPECIFIED ORGANISM (3) CHF (congestive heart failure) Current Visit: Yes Status: Chronic Assessment & Plan: -Echo from 01/01/23 -IMPRESSION: EF 60% 1) MILD TO MODERATE CONCENTRIC LEFT VENTRICULAR HYPERTROPHY. 2) NORMAL LEFT VENTRICULAR SYSTOLIC FUNCTION. 3) CALCIFIC AORTIC SCLEROSIS WITHOUT EVIDENCE OF ANY STENOSIS. 4) DIASTOLIC DYSFUNCTION PRESENTED WITH REVERSE MITRAL INFLOW E:A RATIO. 5) TRACE MITRAL REGURGITATION. 6) TRACE TRICUSPID REGURGITATION. 7) MILD PULMONIC INSUFFICIENCY. -BNP 629 -continue home meds -trops negative -Continue home meds/ entresto -Daily weights/ elevate HOB/Strict I&O -Does not appear to be in exacerbation -No BLE edema on exam -continue home medications - case management set up palliative care and ACO f/u OP Code(s): I50.9 - HEART FAILURE, UNSPECIFIED (4) HLD (hyperlipidemia) Current Visit: Yes Status: Chronic Assessment & Plan: -continue home meds Code(s): E78.5 - HYPERLIPIDEMIA, UNSPECIFIED (5) HTN (hypertension) Current Visit: Yes Status: Chronic Assessment & Plan: -Stable, continue home meds Code(s): I10 - ESSENTIAL (PRIMARY) HYPERTENSION (6) COPD exacerbation Current Visit: Yes Status: Chronic Assessment & Plan: - Continue PO antibiotics and steroids - On baseline O2 4lNC Code(s): J44.1 - CHRONIC OBSTRUCTIVE PULMONARY DISEASE W (ACUTE) EXACERBATION (7) Anxiety Current Visit: No Status: Chronic Assessment & Plan: -continue home meds Code(s): F41.9 - ANXIETY DISORDER, UNSPECIFIED (8) CAD (coronary artery disease) Current Visit: No Status: Chronic Qualifiers: Coronary Disease-Associated Artery/Lesion type: [place] artery [place] vs. transplanted heart: [place] heart Associated angina: without angina Qualified Code(s): I25.10 - Atherosclerotic heart disease of [place] coronary artery without angina pectoris Assessment & Plan: -continue home meds Code(s): I25.10 - ATHSCL HEART DISEASE OF [place] CORONARY ARTERY W/O ANG PCTRS - Discharge Discharge Date: 01/29/24 Disposition: Home, Self-Care Condition: Stable Prescriptions: Continue Omeprazole 20 MG [Prilosec 20 mg] 20 mg PO BIDAC Albuterol 2.5 mg/3 ml Neb [Proventil 2.5 mg/3 ml Neb] 1 neb IH Q6H PRN PRN Reason: sob Aspirin 81 mg PO HS Nitroglycerin 0.4 mg Tablet [Nitrostat 0.4 MG Tablet] 0.4 mg SL Q5MIN PRN MR X 3 PRN PRN Reason: Chest Pain ALPRAZolam 1 MG [Xanax 1 mg] 1 mg PO BID Isosorbide Mononitrate 60 mg [Imdur 60MG] 60 mg PO DAILY Metoprolol Tartrate 25 mg [Lopressor 25MG Tab] 25 mg PO BID Rosuvastatin Calcium 20 mg PO HS Spironolactone 25 mg [Aldactone 25 MG] 12.5 mg PO DAILY Budesonide/Glycopyr/Formoterol [Breztri Aerosphere Inhaler] 2 puffs IH BID Albuterol Sulfate [Proair Digihaler] 2 puffs IH Q6H PRN PRN Reason: sob Furosemide 20 mg [Lasix 20 mg] 20 mg PO DAILY Latanoprost [Xalatan] 1 ml OP HS Carboxymethylcellulose Sodium [Refresh Liquigel] 1 ml OP HS Theophylline Anhydrous [Theophylline ER 24Hr] 400 mg PO BID #60 Sacubitril/Valsartan [Entresto 24 mg-26 mg Tablet] 1 tab PO BID Additional Instructions: [facility] HAS BEEN SET UP FOR YOU. THEY WILL CALL YOU TO ARRANGE A TIME TO COME SEE YOU. THEIR PHONE NUMBER IS [phone] IF YOU NEED ANYTHING BEFORE THEIR FIRST VISIT Follow up with: FARHAT SEGURA DO [Primary Care Provider] - 02/06/24 2:30 pm
[2024-01-29 11:49] VITALS: BP 89/57; PULSE 78; RESP 16; TEMP 97.8; O2SAT 95
== END 2024-01-29 14:13 | disposition home or self-care (01) | DRG 189 ==
LOC: ED 10:10 → MED SURG 13:25 → OBSVTOIN 01-26 09:08
PROVIDERS: ADMIT Internal Medicine; ATTEND Internal Medicine
DX: J96.01 Acute respiratory failure with hypoxia (principal); J18.9 Pneumonia, unspecified organism; J44.1 Chronic obstructive pulmonary disease with (acute) exacerbation; I11.0 Hypertensive heart disease with heart failure; I50.9 Heart failure, unspecified; E78.5 Hyperlipidemia, unspecified; F41.9 Anxiety disorder, unspecified; I25.10 Atherosclerotic heart disease of native coronary artery without angina pectoris; D72.829 Elevated white blood cell count, unspecified; Z99.81 Dependence on supplemental oxygen; Z79.899 Other long term (current) drug therapy
CPT/HCPCS: 0241U; 36000; 36415; 71045; 80053; 82947; 83036; 83605; 83735; 83880; 84484; 85025; 87040; 87070; 87077; 87186; 93005; 93041; 93268; 93306; 94002; 94003; 94640; 94760; 94762; 96365; 96374; 97161; 99285; G0378; Q3014; J0456; J0696; J1650; J2919; J7609; A9270-GY

== ENCOUNTER 2024-02-27 16:32 | Emergency (ER) | payer MEDICARE, SELFPAY ==
--- NOTE | 2024-02-27 16:43 | ERPHSYRPT ---
- History of Present Illness Time Seen by Provider: 02/27/24 16:33 Source: patient, EMS Exam Limitations: clinical condition (very lethargic) Physician History: EMS state Pt's states pt has been less responsive for the past few days and this afternoon pt was unable to be awakened. Pt nodded his head when asked if he had been coughing. EMS state pt's Blood glucose was 145. Oxygen saturation is 80% in ER. Allergies/Adverse [facility]actions: [facility] Allergy (Severe, Verified 11/13/23 15:24) Rash Home Medications: Albuterol 2.5 mg/3 ml Neb [Proventil 2.5 mg/3 ml Neb] 1 neb IH Q6H PRN [History] Aspirin 81 mg PO HS 02/04/14 [History] Omeprazole 20 MG [Prilosec 20 mg] 20 mg PO BIDAC 02/04/14 [History] Nitroglycerin 0.4 mg Tablet [Nitrostat 0.4 MG Tablet] 0.4 mg SL Q5MIN PRN MR X 3 PRN 08/01/16 [History] ALPRAZolam 1 MG [Xanax 1 mg] 1 mg PO BID 10/14/18 [History] Isosorbide Mononitrate 60 mg [Imdur 60MG] 60 mg PO DAILY 06/01/20 [History] Metoprolol Tartrate 25 mg [Lopressor 25MG Tab] 25 mg PO BID 06/01/20 [History] Rosuvastatin Calcium 20 mg PO HS 06/01/20 [History] Spironolactone 25 mg [Aldactone 25 MG] 12.5 mg PO DAILY 01/25/21 [History] Albuterol Sulfate [Proair Digihaler] 2 puffs IH Q6H PRN 03/24/21 [History] Budesonide/Glycopyr/Formoterol [Breztri Aerosphere Inhaler] 2 puffs IH BID 03/24/21 [History] Furosemide 20 mg [Lasix 20 mg] 20 mg PO DAILY 06/12/21 [History] Carboxymethylcellulose Sodium [Refresh Liquigel] 1 ml OP HS 09/25/21 [History] Latanoprost [Xalatan] 1 ml OP HS 09/25/21 [History] Sacubitril/Valsartan [Entresto 24 mg-26 mg Tablet] 1 tab PO BID 11/13/23 [History] Hx Tetanus, Diphtheria Vaccination/Date Given: No Hx Influenza Vaccination/Date Given: Yes Hx Pneumococcal Vaccination/Date Given: Yes Travel Risk - Emerging Infectious Disease Are you exhibiting symptoms associated with any current EIDs: Yes Symptoms: Cough: New Onset, Fever, Shortness of Breath - Review of Systems Respiratory: Cough All Other Systems: Unable due to condition (Pt very lethargic) - Past Medical History Pertinent Past Medical History: Yes Neurological History: No Pertinent History ENT History: No Pertinent History Cardiac History: Aneurysm, Congestive Heart Failure, Hypertension Respiratory History: COPD, Sleep Apnea, Other Endocrine Medical History: Diabetes Type II Musculoskeletal History: No Pertinent History GI Medical History: GERD History: No Pertinent History Psycho-Social History: Anxiety Male Reproductive Disorders: No Pertinent History Other Medical History: 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 PT wears 4L O2 AT ALL TIMES - Past Surgical History Past Surgical History: Yes Neuro Surgical History: No Pertinent History Cardiac: No Pertinent History Respiratory: Other Gastrointestinal: Hernia Repair Genitourinary: No Pertinent History Musculoskeletal: Orthopedic Surgery Male Surgical History: Vasectomy Other Surgical History: BACK SURGERY, and ear surgery and a left lung biopsy. 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, double hernia repair, Significant Family History: no pertinent family hx - Social History Smoking Status: Former smoker How long have you smoked: 13 Exposure to second hand smoke: Yes Drug Use: none Patient Lives Alone: No - Social Determinants of Health Will the patient participate in the screening: Yes Do you worry about a steady place to live?: No In the past 12 months,have you had to go without utilities?: No Transportation Issues: No Has anyone in your support network made you feel unsafe?: No Have you or anyone in your house had to go without enough: No - Nursing Vital Signs Nursing Vital Signs: Initial Vital Signs Temperature 98.6 F 02/27/24 16:33 Pulse Rate 135 H 02/27/24 16:33 Respiratory Rate 30 H 02/27/24 16:33 Blood Pressure 84/51 02/27/24 16:33 O2 Sat by Pulse Oximetry 80 L 02/27/24 16:33 Pain Scale Pain Intensity 0 - Physical Exam General Appearance: lethargy Eye Exam: bilateral eye: PERRL Ears, Nose, Throat Exam: pharyngeal erythema Neck Exam: normal inspection Respiratory: crackles/rales (left base posteriorly) Cardiovascular: tachycardia Gastrointestinal: normal bowel sounds Extremity Exam: No swelling 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 See rest of report.) - CT Exams Head CT Interpretation: Discussed w/radiologist (No comps. Nonacute senile brain.) Ordered Tests: Active Orders 24 hr Category Date Time Status Loader Technician STAT Care 02/27/24 16:41 Active EKG-ER Only STAT Care 02/27/24 16:38 Active IV Insertion STAT Care 02/27/24 16:38 Active Pulse Oximetry (ED) STAT Care 02/27/24 16:40 Active Re-Check Vital Signs STAT Care 02/27/24 16:40 Active CHEST 1 VIEW (PORTABLE) Stat Exams 02/27/24 16:39 Completed HEAD WITHOUT CONTRAST [CT] Stat Exams 02/27/24 16:42 Taken AMYLASE Stat Lab 02/27/24 16:45 Completed BLOOD CULTURE Stat Lab 02/27/24 17:35 Received CBC W DIFF Stat Lab 02/27/24 16:45 Completed CMP Stat Lab 02/27/24 16:45 Completed CULTURE,URINE Stat Lab 02/27/24 16:39 Received LIPASE Stat Lab 02/27/24 16:45 Completed Lactic Acid Stat Lab 02/27/24 16:38 Completed TROPONIN Q4H Lab 02/27/24 16:45 Completed TROPONIN Q4H Lab 02/27/24 20:45 Ordered TROPONIN Q4H Lab 02/28/24 00:45 Ordered UA W/RFX UR CULTURE Stat Lab 02/27/24 16:38 Completed VENOUS BLOOD GAS Stat Lab 02/27/24 16:40 Completed BiPap/CPAP STAT RT 02/27/24 16:43 Active Respiratory Therapy Assessment DAILY RT 02/27/24 17:26 Active Medication Summary Discontinued Medications Generic Name Dose Route Start Last Admin Trade Name Simón PRLamar Reason Stop Dose Admin Albuterol Sulfate 2.5 mg 02/27/24 16:40 02/27/24 17:26 Albuterol Sulfate 2.5 Mg/3 Ml Neb IH 02/27/24 16:41 2.5 mg STAT ONE Administration Albuterol Sulfate Confirm 02/27/24 17:22 Albuterol Sulfate 2.5 Mg/3 Ml Neb Administered 02/27/24 17:23 Dose 2.5 mg IH .STK-MED ONE Sodium Chloride 1,000 mls @ 999 mls/hr 02/27/24 16:38 02/27/24 17:31 Sodium Chloride 0.9% 1000 Ml IV 02/27/24 17:38 999 mls/hr .Q1H1M STA Administration Ceftriaxone Sodium 1 gm in 100 mls @ 200 mls/hr 02/27/24 16:40 02/27/24 17:42 Rocephin 1 Gm / 100 Ml Nacl IV 02/27/24 17:09 100 mls/hr STAT ONE 100 mls/hr Administration Azithromycin 500 mg in 250 mls @ 250 mls/hr 02/27/24 16:40 02/27/24 17:45 Zithromax 500 Mg/ 250 Ml Nacl Premix IV 02/27/24 17:39 250 mls/hr STAT STA 250 mls/hr Administration Azithromycin Confirm 02/27/24 17:21 Zithromax 500 Mg/ 250 Ml Nacl Premix Administered 02/27/24 17:22 Dose 500 mg in 250 mls @ ud IV .STK-MED ONE Sodium Chloride Confirm 02/27/24 17:21 Sodium Chloride 0.9% 1000 Ml Administered 02/27/24 17:22 Dose 1,000 mls @ ud .ROUTE .STK-MED ONE Ceftriaxone Sodium Confirm 02/27/24 17:21 Rocephin 1 Gm / 100 Ml Nacl Administered 02/27/24 17:22 Dose 1 gm in 100 mls @ ud IV .STK-MED ONE Sodium Chloride Confirm 02/27/24 18:26 Sodium Chloride 0.9% 1000 Ml Administered 02/27/24 18:27 Dose 1,000 mls @ ud .ROUTE .STK-MED ONE Lab/Rad Data: Laboratory Result Diagrams 02/27/24 16:45 02/27/24 16:45 Laboratory Results 02/27/24 02/27/24 02/27/24 Range/Units 17:00 16:45 16:45 WBC (4.23-9.07) x10^3/uL RBC (4.63-6.08) x10^6/uL Hgb (13.7-17.5) g/dL Hct (40.1-51.0) % MCV (79.0-92.2) fL MCH (25.7-32.2) pg MCHC (32.3-36.5) g/dL RDW (11.6-14.4) % Plt Count (163-337) x10^3/uL MPV (9.4-12.4) fL Gran % (34.0-67.9) % Immature Gran % (Auto) (0.001-0.429) % Nucleat RBC Rel Count (0.00-0.2) % Eos # (Auto) (0.04-0.54) x10^3/uL Immature Gran # (Auto) (0.001-0.031) x10^3u/L Absolute Lymphs (auto) (1.32-3.57) x10^3/uL Absolute Monos (auto) (0.30-0.82) x10^3/uL Absolute Nucleated RBC (0.00-0.012) x10^3u/L Lymphocytes % (21.8-53.1) % Monocytes % (5.3-12.2) % Eosinophils % (0.8-7.0) % Basophils % (0.2-1.2) % Absolute Granulocytes (1.78-5.38) x10^3/uL Basophils # (0.01-0.08) x10^3/uL pO2/FiO2 Ratio % VBG pH (7.32-7.42) VBG pCO2 at Pat Temp (42-55) mm/Hg VBG pO2 at Pat Temp (25-40) mm/Hg VBG HCO3 (22-28) meq/L VBG O2 Sat (Annie) (95-100) VBG Base Excess (-2.0-2.0) VBG Hemoglobin VBG Carboxyhemoglobin (0.0-6.9) % T HGB POC Potassium (3.5-5.1) Sodium 138 (135-145) mmol/L Potassium 5.0 (3.5-5.1) mmol/L Chloride 94 L (98-107) mmol/L Carbon Dioxide 38 H (22-30) mmol/L Anion Gap 11.1 (5-15) MEQ/L BUN 22 H (9-20) mg/dL Creatinine 0.91 (0.66-1.25) mg/dL Estimated GFR 86.8 ML/MIN Glucose 171 H (74-106) mg/dL Lactic Acid (0.4-2.0) Calcium 9.2 (8.4-10.2) mg/dL Total Bilirubin 0.80 (0.2-1.3) mg/dL AST 116 H (17-59) U/L ALT 57 H (0-50) U/L Alkaline Phosphatase 122 (38-126) U/L Troponin I 0.375 H* (0.000-0.033) ng/mL Serum Total Protein 6.8 (6.3-8.2) g/dL Albumin 4.0 (3.5-5.0) g/dL Amylase 60 (30-110) U/L Lipase 72 (23-300) U/L Urine Color (Yellow) Urine Appearance (Clear) Urine pH (4.6-8.0) Ur Specific Farson (1.005-1.030) Urine Protein (Negative) Urine Glucose (UA) (Negative) mg/dL Urine Ketones (Negative) Urine Blood (Negative) Urine Nitrite (Negative) Urine Bilirubin (Negative) Urine Urobilinogen (0.2) mg/dL Ur Leukocyte Esterase (Negative) U Hyaline Cast (Auto) (0-2) /LPF Urine Microscopic RBC (0-5) /HPF Urine Microscopic WBC (0-5) /HPF Ur Epithelial Cells (None Seen) /HPF Urine Bacteria (None Seen) /HPF Urine Culture Reflexed (NO) Influenza Type A Ag NEGATIVE (NEGATIVE) Influenza Type B Ag NEGATIVE (NEGATIVE) RSV (PCR) NEGATIVE (NEGATIVE) SARS-CoV-2 (PCR) POSITIVE A (NEGATIVE) 02/27/24 02/27/24 02/27/24 Range/Units 16:45 16:40 16:38 WBC 8.5 (4.23-9.07) x10^3/uL RBC 5.13 (4.63-6.08) x10^6/uL Hgb 13.4 L (13.7-17.5) g/dL Hct 45.5 (40.1-51.0) % MCV 88.7 (79.0-92.2) fL MCH 26.1 (25.7-32.2) pg MCHC 29.5 L (32.3-36.5) g/dL RDW 15.3 H (11.6-14.4) % Plt Count 338 H (163-337) x10^3/uL MPV 9.1 L (9.4-12.4) fL Gran % 83.8 H (34.0-67.9) % Immature Gran % (Auto) 1.4 H (0.001-0.429) % Nucleat RBC Rel Count 0.0 (0.00-0.2) % Eos # (Auto) 0 L (0.04-0.54) x10^3/uL Immature Gran # (Auto) 0.12 H (0.001-0.031) x10^3u/L Absolute Lymphs (auto) 0.55 L (1.32-3.57) x10^3/uL Absolute Monos (auto) 0.67 (0.30-0.82) x10^3/uL Absolute Nucleated RBC 0.00 (0.00-0.012) x10^3u/L Lymphocytes % 6.5 L (21.8-53.1) % Monocytes % 7.9 (5.3-12.2) % Eosinophils % 0.0 L (0.8-7.0) % Basophils % 0.4 (0.2-1.2) % Absolute Granulocytes 7.11 H (1.78-5.38) x10^3/uL Basophils # 0.03 (0.01-0.08) x10^3/uL pO2/FiO2 Ratio 40.0 % VBG pH 7.25 L (7.32-7.42) VBG pCO2 at Pat Temp 75 H* (42-55) mm/Hg VBG pO2 at Pat Temp 39 (25-40) mm/Hg VBG HCO3 32.9 H* (22-28) meq/L VBG O2 Sat (Annie) 61.8 L (95-100) VBG Base Excess 3.4 H (-2.0-2.0) VBG Hemoglobin 12.8 VBG Carboxyhemoglobin 1.8 (0.0-6.9) % T HGB POC Potassium 4.7 (3.5-5.1) Sodium (135-145) mmol/L Potassium (3.5-5.1) mmol/L Chloride (98-107) mmol/L Carbon Dioxide (22-30) mmol/L Anion Gap (5-15) MEQ/L BUN (9-20) mg/dL Creatinine (0.66-1.25) mg/dL Estimated GFR ML/MIN Glucose (74-106) mg/dL Lactic Acid 0.7 (0.4-2.0) Calcium (8.4-10.2) mg/dL Total Bilirubin (0.2-1.3) mg/dL AST (17-59) U/L ALT (0-50) U/L Alkaline Phosphatase (38-126) U/L Troponin I (0.000-0.033) ng/mL Serum Total Protein (6.3-8.2) g/dL Albumin (3.5-5.0) g/dL Amylase (30-110) U/L Lipase (23-300) U/L Urine Color (Yellow) Urine Appearance (Clear) Urine pH (4.6-8.0) Ur Specific Farson (1.005-1.030) Urine Protein (Negative) Urine Glucose (UA) (Negative) mg/dL Urine Ketones (Negative) Urine Blood (Negative) Urine Nitrite (Negative) Urine Bilirubin (Negative) Urine Urobilinogen (0.2) mg/dL Ur Leukocyte Esterase (Negative) U Hyaline Cast (Auto) (0-2) /LPF Urine Microscopic RBC (0-5) /HPF Urine Microscopic WBC (0-5) /HPF Ur Epithelial Cells (None Seen) /HPF Urine Bacteria (None Seen) /HPF Urine Culture Reflexed (NO) Influenza Type A Ag (NEGATIVE) Influenza Type B Ag (NEGATIVE) RSV (PCR) (NEGATIVE) SARS-CoV-2 (PCR) (NEGATIVE) 02/27/24 Range/Units 16:38 WBC (4.23-9.07) x10^3/uL RBC (4.63-6.08) x10^6/uL Hgb (13.7-17.5) g/dL Hct (40.1-51.0) % MCV (79.0-92.2) fL MCH (25.7-32.2) pg MCHC (32.3-36.5) g/dL RDW (11.6-14.4) % Plt Count (163-337) x10^3/uL MPV (9.4-12.4) fL Gran % (34.0-67.9) % Immature Gran % (Auto) (0.001-0.429) % Nucleat RBC Rel Count (0.00-0.2) % Eos # (Auto) (0.04-0.54) x10^3/uL Immature Gran # (Auto) (0.001-0.031) x10^3u/L Absolute Lymphs (auto) (1.32-3.57) x10^3/uL Absolute Monos (auto) (0.30-0.82) x10^3/uL Absolute Nucleated RBC (0.00-0.012) x10^3u/L Lymphocytes % (21.8-53.1) % Monocytes % (5.3-12.2) % Eosinophils % (0.8-7.0) % Basophils % (0.2-1.2) % Absolute Granulocytes (1.78-5.38) x10^3/uL Basophils # (0.01-0.08) x10^3/uL pO2/FiO2 Ratio % VBG pH (7.32-7.42) VBG pCO2 at Pat Temp (42-55) mm/Hg VBG pO2 at Pat Temp (25-40) mm/Hg VBG HCO3 (22-28) meq/L VBG O2 Sat (Annie) (95-100) VBG Base Excess (-2.0-2.0) VBG Hemoglobin VBG Carboxyhemoglobin (0.0-6.9) % T HGB POC Potassium (3.5-5.1) Sodium (135-145) mmol/L Potassium (3.5-5.1) mmol/L Chloride (98-107) mmol/L Carbon Dioxide (22-30) mmol/L Anion Gap (5-15) MEQ/L BUN (9-20) mg/dL Creatinine (0.66-1.25) mg/dL Estimated GFR ML/MIN Glucose (74-106) mg/dL Lactic Acid (0.4-2.0) Calcium (8.4-10.2) mg/dL Total Bilirubin (0.2-1.3) mg/dL AST (17-59) U/L ALT (0-50) U/L Alkaline Phosphatase (38-126) U/L Troponin I (0.000-0.033) ng/mL Serum Total Protein (6.3-8.2) g/dL Albumin (3.5-5.0) g/dL Amylase (30-110) U/L Lipase (23-300) U/L Urine Color Dark Yellow (Yellow) Urine Appearance Cloudy A (Clear) Urine pH 5.5 (4.6-8.0) Ur Specific Farson 1.020 (1.005-1.030) Urine Protein 100 A (Negative) Urine Glucose (UA) Negative (Negative) mg/dL Urine Ketones Negative (Negative) Urine Blood Moderate A (Negative) Urine Nitrite Negative (Negative) Urine Bilirubin Negative (Negative) Urine Urobilinogen 1.0 A (0.2) mg/dL Ur Leukocyte Esterase Moderate A (Negative) U Hyaline Cast (Auto) 6-10 A (0-2) /LPF Urine Microscopic RBC 51-100 A (0-5) /HPF Urine Microscopic WBC >100 A (0-5) /HPF Ur Epithelial Cells None Seen (None Seen) /HPF Urine Bacteria Few A (None Seen) /HPF Urine Culture Reflexed ORDERED SEPARATELY (NO) Influenza Type A Ag (NEGATIVE) Influenza Type B Ag (NEGATIVE) RSV (PCR) (NEGATIVE) SARS-CoV-2 (PCR) (NEGATIVE) - Progress Progress: unchanged Will see patient in: other (Spoke with Dr. Saleh([id number]) who accepted pt for transfer to [facility] ER.) Counseled pt/family regarding: lab results, diagnosis, rad results Medical Desision Making - Diagnostic Testing Diagnostic test were ordered, analyzed, and reviewed by me: Yes Radiological Interpretation: Discussed w/ radiologist - Departure Departure Disposition: Transfer ([facility]) Clinical Impression: Pneumonia, UTI (urinary tract infection), AMS (altered mental status), Hypoxia, Elevated troponin, COVID-19 Condition: Stable Critical Care Time: Yes Critical Care Time(excluding separately billable procedures): Critical 30-74 mins Referrals: FARHAT SEGURA DO [Primary Care Provider] - Follow up/PCP as directed
[2024-02-27 16:48] LABS: VBG BASE EXCESS 3.4 (-2.0-2.0); VBG CARBOXYHEMOGLOBIN 1.8 % T HGB (0.0-6.9); VBG HCO3- 32.9 meq/L (22-28); VBG HEMOGLOBIN 12.8; VBG O2 SATURATION 61.8 (95-100); VBG POTASSIUM 4.7 (3.5-5.1); VBG pH 7.25 (7.32-7.42)
[2024-02-27 17:09] LABS: Absolute Neutrophil Ct (ANC) 7.11 x10^3/uL (1.78-5.38); BASOPHIL % 0.4 % (0.2-1.2); Basophil (Absolute #) 0.03 x10^3/uL (0.01-0.08); Eosinophil (Absolute #) 0 x10^3/uL (0.04-0.54); Hematocrit 45.5 % (40.1-51.0); Hemoglobin 13.4 g/dL (13.7-17.5); IMMATURE GRAN # 0.12 x10^3u/L (0.001-0.031); IMMATURE GRAN % 1.4 % (0.001-0.429); Lymphocyte (Absolute #) 0.55 x10^3/uL (1.32-3.57); Lymphocytes % 6.5 % (21.8-53.1); Mean Cell Volume 88.7 fL (79.0-92.2); Mean Corpuscular Hemoglobin 26.1 pg (25.7-32.2); Mean Corpuscular Hgb Concent. 29.5 g/dL (32.3-36.5); Mean Platelet Volume 9.1 fL (9.4-12.4); Monocyte (Absolute #) 0.67 x10^3/uL (0.30-0.82); Monocytes % 7.9 % (5.3-12.2); Neutrophil % 83.8 % (34.0-67.9); Platelet Count 338 x10^3/uL (163-337); Red Blood Count 5.13 x10^6/uL (4.63-6.08); Red Cell Distribution Width 15.3 % (11.6-14.4); White Blood Count 8.5 x10^3/uL (4.23-9.07)
--- NOTE | 2024-02-27 17:18 | XRAY ---
Indication: Hypoxia. Comparison: January 25, 2024 Portable chest again hyperinflated new right infrahilar infiltrate/atelectasis. Remaining heart and lungs unremarkable again with left lung suture material. Bony thorax intact again with osteopenia.
[2024-02-27] MEDS ORDERED: Sodium Chloride 0.9% 1000 ML 1,000 ML ONE ×2 (17:21→18:26)
[2024-02-27] MEDS ORDERED: ROCEPHIN 1 GM / 100 ML NaCl 1 GM/100 ML IVPB IV ONE (17:21)
[2024-02-27] MEDS ORDERED: Zithromax 500 MG/ 250 ML NaCl Premix 500 MG/250 ML IVPB IV ONE (17:21)
[2024-02-27] MEDS ORDERED: PROVENTIL 2.5 MG/3 ML NEB IH ONE (17:22)
[2024-02-27 17:25] LABS: ANION GAP 11.1 MEQ/L (5-15); BILIRUBIN,TOTAL 0.8 mg/dL (0.2-1.3); Calcium 9.2 mg/dL (8.4-10.2); Creatinine 1 0.91 mg/dL (0.66-1.25); EST GLOMERULAR FILTRATION RATE 86.8 ML/MIN; Total Protein 6.8 g/dL (6.3-8.2)
[2024-02-27] MEDS: PROVENTIL 2.5 MG/3 ML NEB IH ONE (17:26)
[2024-02-27] MEDS: Sodium Chloride 0.9% 1000 ML 1,000 ML IV STA ×2 (17:31→18:55)
[2024-02-27 17:33] VITALS: TEMP 99.5
[2024-02-27 17:36] LABS: ADD URINE CULTURE? ORDERED SEPARATELY (NO); Appearance Cloudy (Clear); Bacteria Few /HPF (None Seen); Bilirubin Negative (Negative); Blood Moderate (Negative); Epithelial Cells None Seen /HPF (None Seen); Glucose, Urine Negative (Negative); Ketones Negative (Negative); Leukocyte Esterase Moderate (Negative); Nitrite Negative (Negative); Ph 5.5 (4.6-8.0); Protein,Urine Dip 100 (Negative); RBC 51-100 /HPF (0-5); WBC >100 /HPF (0-5)
[2024-02-27] MEDS: ROCEPHIN 1 GM / 100 ML NaCl 1 GM/100 ML IVPB IV ONE (17:42)
[2024-02-27] MEDS: Zithromax 500 MG/ 250 ML NaCl Premix 500 MG/250 ML IVPB IV STA (17:45)
[2024-02-27 18:04] LABS: INFLUENZA A NEGATIVE (NEGATIVE); INFLUENZA B NEGATIVE (NEGATIVE); RESPIRATORY SYNCTIAL VIRUS NEGATIVE (NEGATIVE)
[2024-02-27 18:07] LABS: SARS-CoV-2 Xpert Express POSITIVE (NEGATIVE)
[2024-02-27] MEDS ORDERED: NOREPINEPHRINE 8 MG/250 ML-D5W 8 MG/250 ML PLAST..BAG IV ONE (18:45)
[2024-02-27] MEDS: NOREPINEPHRINE 8 MG/250 ML-D5W 8 MG/250 ML PLAST..BAG IV PRN (18:47)
[2024-02-27 19:05] VITALS: BP 104/81; PULSE 116; RESP 10; O2SAT 100
[2024-02-27 19:30] LABS: Slide Review 1 YES
--- NOTE | 2024-02-28 08:44 | XRAY ---
Indication: Altered mental status. Multiple contiguous axial images obtained through the head without contrast. Comparison: None Age-appropriate global atrophy, minimal periventricular degenerative micro-ischemia bilaterally, and remote lacunar infarct right basal ganglia. No acute intracranial hemorrhage, abnormal extra-axial fluid collection, or mass effect. Fourth ventricle is midline without hydrocephalus. Bony calvarium intact with bilateral mastoidectomy. Visualized paranasal sinuses and mastoid air cells are clear. Impression: Nonacute senile brain with remote lacunar infarct right basal ganglia.
== END 2024-02-27 20:03 | disposition short-term general hospital (02) ==
LOC: ED 16:32
DX: U07.1 COVID-19 (principal); J12.82 Pneumonia due to coronavirus disease 2019; R09.02 Hypoxemia; N39.0 Urinary tract infection, site not specified; R41.82 Altered mental status, unspecified; R77.8 Other specified abnormalities of plasma proteins; R05.9 Cough, unspecified; I11.0 Hypertensive heart disease with heart failure; I50.9 Heart failure, unspecified; E11.9 Type 2 diabetes mellitus without complications; Z79.899 Other long term (current) drug therapy; Z99.81 Dependence on supplemental oxygen
CPT/HCPCS: 0241U; 36000; 36415; 70450; 71045; 80053; 81001; 82150; 82805; 83605; 83690; 84484; 85025; 87040; 87086; 93005; 93041; 94002; 94640; 94760; 96360; 96365; 96367; 99285; 99291; J0456; J0696; J7609; A9270-GY